=== PATIENT | female | born 1990 | race Caucasian/White ===

== ENCOUNTER 2022-08-31 20:11 | Outpatient (CLI) | payer OTHER, SELFPAY ==
[2022-08-31 20:47] VITALS: BP 116/79; PULSE 72; RESP 18; TEMP 36.5; O2SAT 98; BMI 24.2
[2022-08-31 21:09] LABS: Appearance Urine Clear (Clear); Bilirubin Urine Negative (Negative); Blood Urine Negative (Negative); Color Urine Yellow (Yellow); Glucose Urine Negative (Negative); Ketones Urine Negative (Negative); Leukocyte Esterase Urine Negative (Negative); Nitrite Urine Negative (Negative); Protein Urine Negative (Negative); Specific Gravity Urine 1.025 (1.000-1.030); Urobilinogen Urine 0.2 (0.2-1.0)
[2022-08-31 21:22] LABS: WBC Urine 0-2 (0-5)
[2022-08-31 21:23] LABS: Squamous Epithelial Cell Urine Few (None-Few)
--- OUTSIDE RECORDS SUMMARY | 2022-08-31 22:21 | XMS_ITS | Encounter Summary ---
:1990 Author Organization [employer] Address [address] [place] [address] Care Team Providers Name Role Phone No Primary/Referring, Phy Primary Care Provider Unavailable Reason for Visit Procedure/Equipment (Routine) - Incomplete Specialty Diagnoses / Procedures Referred By Contact Refer red To Contact Procedures Deja Perez, US Abd RUQ Organs PA-C [address] [place] [address] Referral ID Status Reason Start Date Expiration Date Visits V isits Requested Authorized [id number] Incomplete 05/08/2022 08/07/2023 1 1 Encounter Details Date Type Department Care Team Description 05/08/2022 Ancillary Procedure [facility] Ul tras[facility] [address] [place], [place] [id number] Social History Tobacco Use Types Packs/Day Years Used Date Smoking Tobacco: Every Day Cigarettes 0.5 Alcohol Use Standard Drinks/Week Comments Yes 0 (1 standard drink = 0.6 oz pure alcoho l) social Sex Assigned at Date Recorded Not on file documented as of this encounter Plan of Treatment Not on filedocumented as of this encounter Procedures Procedure Name Priority Date/Time Associated Diagnosis Comme nts US ABD RUQ ORGANS STAT 05/08/2022 10:01 PM Res ults for this CDT procedure are i n the results section. documented in this encounter Results US Abd RUQ Organs (05/08/2022 10:01 PM CDT) Anatomical Region Laterality Modality Abdomen Ultrasound Specimen (Source) Anatomical Collection Method Collection Time Re ceived Time Location / / Volume Laterality 05/08/2022 10:01 PM CDT Narrative 05/08/2022 10:06 PM CDT EXAM: US ABD RUQ ORGANS LOCATION: [facility] DATE/TIME: 05/08/2022 10:01 PM INDICATION: Ruq pain COMPARISON: None. TECHNIQUE: Limited abdominal ultrasound. FINDINGS: GALLBLADDER: Normal. No gallstones, wall thickening, or pericholecystic fluid. Negative sonographic Cruz's sign. BILE DUCTS: No biliary dilatation. The c ommon duct measures 6 mm. LIVER: Normal parenchyma with smooth con tour. No focal mass. The portal vein is patent with flow in the normal direction. RIGHT KIDNEY: No hydronephrosis. PANCREAS: The visualized portions are no rmal. No right upper quadrant ascites. IMPRESSION: 1. ??No sonographic evidence of cholelit hiasis or cholecystitis. Procedure Note Timi Giordano MD - 05/08/2022Forma tting of this note might be different from the original. EXAM: US ABD RUQ ORGANS LOCATION: [facility] DATE/TIME: 05/08/2022 10:01 PM INDICATION: Ruq pain COMPARISON: None. TECHNIQUE: Limited abdominal ultrasound. FINDINGS: GALLBLADDER: Normal. No gallstones, wall thickening, or pericholecystic fluid. Negative sonographic Cruz's sign. BILE DUCTS: No biliary dilatation. The c ommon duct measures 6 mm. LIVER: Normal parenchyma with smooth con tour. No focal mass. The portal vein is patent with flow in the normal direction. RIGHT KIDNEY: No hydronephrosis. PANCREAS: The visualized portions are no rmal. No right upper quadrant ascites. IMPRESSION: 1. No sonographic evidence of cholelithi asis or cholecystitis. Deja CABRERA US documented in this encounter Visit Diagnoses Not on filedocumented in this encounter Additional Health Concerns Infection Onset Date Last Indicated Resolved Time R/O COVID19 05/08/2022 05/08/2022 05/08/2022 9:31 PM CDT COVID19 05/08/2022 05/08/2022 05/19/2022 3:17 AM CDT documented as of this encounter Care Teams Drum Tender Relationship Specialty Start Date End Date No Primary/Referring, Phy PCP - General 08/01/12 documented as of this encounter
--- OUTSIDE RECORDS SUMMARY | 2022-08-31 22:21 | XMS_ITS | Encounter Summary ---
:1990 Author Organization [employer] [facility] Address [address] [place] [address] Care Team Providers Name Role Phone No Primary/Referring, Phy Primary Care Provider Unavailable Reason for Visit Procedure/Equipment (Routine) - Incomplete Specialty Diagnoses / Procedures Referred By Contact Refer red To Contact Procedures Deja Perez, XR Chest 2 Views PA-C [address] [place] [address] Referral ID Status Reason Start Date Expiration Date Visits V isits Requested Authorized [id number] Incomplete 05/08/2022 08/07/2023 1 1 Encounter Details Date Type Department Care Team Description 05/08/2022 Ancillary Procedure [facility] [address] [place] [address] Social History Tobacco Use Types Packs/Day Years [...] Name Priority Date/Time Associated Diagnosis Comme nts XR CHEST 2 VIEWS STAT 05/08/2022 9:44 PM Resul ts for this CDT procedure are i n the results section. documented in this encounter Results XR Chest 2 Views (05/08/2022 9:44 PM CDT) Anatomical Region Laterality Modality Chest, Lung Computed Radiography Specimen (Source) Anatomical Collection Method Collection Time Re ceived Time Location / / Volume Laterality 05/08/2022 9:44 PM CDT Narrative 05/08/2022 9:46 PM CDT EXAM: XR CHEST 2 VIEWS LOCATION: [facility] DATE/TIME: 05/08/2022 9:44 PM INDICATION: Fever COMPARISON: 01/25/2020 IMPRESSION: Negative chest. Procedure Note Alvin Pang MD - 05/08/2022Formmaciej g of this note might be different from the original. EXAM: XR CHEST 2 VIEWS LOCATION: [facility] DATE/TIME: 05/08/2022 9:44 PM INDICATION: Fever COMPARISON: 01/25/2020 IMPRESSION: Negative chest. Deja CABRERA GD documented in this encounter Visit Diagnoses Not on filedocumented in this encounter Additional Health Concerns Infection Onset Date Last Indicated Resolved Time COVID19 05/08/2022 05/08/2022 05/19/2022 3:17 AM CDT documented as of this encounter Care Teams Agriculture Instructor Relationship Specialty Start Date End Date No Primary/Referring, Phy PCP - General 08/01/12 documented as of this encounter
--- OUTSIDE RECORDS SUMMARY | 2022-08-31 22:21 | XMS_ITS | Encounter Summary ---
:1990 Author Organization [employer] Address [address] [place] [address] Care Team Providers Name Role Phone No Primary/Referring, Phy Primary Care Provider Unavailable Reason for Referral Procedure/Equipment (Routine) - Incomplete Specialty Diagnoses / Procedures Referred By Contact Refer red To Contact Procedures Deja Perez, XR Chest 2 Views PA-C [address] [place] [address] Referral ID Status Reason Start Date Expiration Date Visits V isits Requested Authorized [id number] Incomplete 05/08/2022 08/07/2023 1 1 Procedure/Equipment (Routine) - Incomplete Specialty Diagnoses / Procedures Referred By Contact Refer red To Contact Procedures Deja Perez, US Abd RUQ Organs PA-C [address] [place] [address] Referral ID Status Reason Start Date Expiration Date Visits V isits Requested Authorized [id number] Incomplete 05/08/2022 08/07/2023 1 1 Reason for Visit Reason Comments INFLUENZA LIKE ILLNESS Encounter Details Date Type Department Care Team Description 05/08/2022 Emergency [facility] ENRIQUE Perez-19 virus infection (Pr imary Dx); [facility] Upper abdominal pain; [place] [address] [address] [facility] Nausea and vomiting, unspecified vomitin g type; [phone] [place], [place] Lumbar pain; [address] Cigarette smoker; [phone] (Wo rk) History of endometriosis; History o f pyelonephritis Social History Tobacco Use Types Packs/Day Years Used Date Smoking Tobacco: Every Day Cigarettes 0.5 Alcohol Use Standard Drinks/Week Comments Yes 0 (1 standard drink = 0.6 oz pure alcoho l) social Sex Assigned at Date Recorded Not on file documented as of this encounter Last Filed Vital Signs Vital Sign Reading Time Taken Comments Blood Pressure 141/74 05/08/2022 6:38 PM CDT Pulse 88 05/08/2022 6:38 PM CDT Temperature 37.6 ??C (99.7 ??F) 05/08/2022 6:38 PM CDT Respiratory Rate 18 05/08/2022 6:38 PM CDT Oxygen Saturation 100% 05/08/2022 6:38 PM CDT Inhaled Oxygen Concentration - - Weight - - Height - - Body Mass Index - - documented in this encounter Discharge Instructions Discharge InstructionsDeja Perez PA-C - 05/08/2022 10:44 PM CDT Please follow CDC guidelines for isolation- People with COVID-19 should isolate for 5 days and if they are asymptomatic or their symptoms are resolving (without fever for 24 hours), follow that by 5 days of wearing a mask when around others to minimize the risk of infecting people they encounter. You can take ibuprofen or Tylenol as needed for pain, ibuprofen 600 mg every 6-8 hours or Tylenol 500-650 mg every 4-6 hours (not exceeding 4 grams in 24 hours). You can alternate the 2 of these medications to stay on top of the pain and reduce fever. You were given a prescription for an medication called Zofran to help with your nausea, take as directed. Follow-up with your PCP in a few days for re-evaluation. Return to emergency department with worsening abdominal pain, recurrent vomiting, persistent fever, chest pain, shortness of breath or any other concerns. documented in this encounter Medications at Time of Discharge Medication Sig Dispensed Refills Start Date End Date acetaminophen (TYLENOL) Take 2 Tablets (650 mg) 30 Tablet 0 05/08/2022 325 MG tablet by mouth every 4 hours as needed for Pain. Maximum acetaminophen dose of 4000 mg in 24 hours. ibuprofen (MOTRIN) 600 Take 1 Tablet (600 mg) 30 Tablet 0 0 05/08/2022 MG tablet by mouth every 6 hours as needed for Pain. levonorgestrel (AKA 1 Each by Intrauterine 0 MIRENA) 20 MCG/24HR IUD route once. ondansetron (AKA ZOFRAN) Take 1 Tab by mouth 10 Tab 0 4 MG tablet every 8 hours as needed for Nausea. ondansetron (ZOFRAN-ODT) Dissolve 1 Tablet (4 10 Tablet 0 0 05/08/2022 4 MG disintegrating mg) by mouth every 8 tablet hours as needed for Nausea. oxyCODONE-acetaminophen Take 1-2 Tabs by mouth 16 Tab 0 12/31/2014 (AKA PERCOCET) 5-325 MG every 4 hours as needed tablet for Pain. documented as of this encounter ED Notes Dunia Hernandez RN - 05/08/2022 10:51 PM CDT ED Nursing Discharge Note Arrival Information: Patient arrived: Ambulance Patient escorted by: EMS/Ambulance Discharge Information: Patient discharged: Home Patient accompanied by: Accompanied By: Self Transport mode: Mode: Walk Discharge instructions given and explained to patient: New discharge prescriptions explained to patient: Yes: Medications Prescribed this Visit Disp Refills Start End acetaminophen (TYLENOL) 325 MG tablet 30 Tablet 0 05/08/2022 Take 2 Tablets (650 mg) by mouth every 4 hours as needed for Pain. Oral ibuprofen (MOTRIN) 600 MG tablet 30 Tablet 0 05/08/2022 Take 1 Tablet (600 mg) by mouth every 6 hours as needed for Pain. Oral ondansetron (ZOFRAN-ODT) 4 MG disintegrating tablet 10 Tablet 0 05/08/2022 Take 1 Tablet (4 mg) by mouth every 8 hours as needed for Nausea. Oral LDA in place: Patient verbalized understanding of discharge plan and capable of completing discharge plan: Yes Does patient require hand-off or assistance with discharge plan: No Belongings, medication, weapons returned to patient: Yes Patient level of pain on discharge: Pain Rating (0-10): Rest: 10 Patient's condition related to chief complaint and treatment in the ED: improved Holds documented by nursing during this visit - reviewed chart for most current hold status: No No orders of the defined types were placed in this encounter. ---End of Report--- Deja Perez PA-C - 05/08/2022 8:35 PM CDT Emergency Medicine Visit Note Chief Complaint: INFLUENZA LIKE ILLNESS HPI The patient is a 31-year-old female with history of endometriosis, UTI/pyelonephritis who presents to the emergency department for evaluation of abdominal pain, nausea and fever. The patient states shewoke up this morning with a dry, irritated throat. She then developed a fever of 103.2. Patient took Tylenol, however vomited immediately afterwards. She developed epigastric/RUQ pain which has been constant since. Since waiting in the lobby she has developed low back pain that feels typical of prior kidney infections. The patient has been urinating more frequently, however she denies any dysuria, urinary urgency or hematuria. She has had a slight cough. Denies any current sore throat or rhinorrhea.No shortness of breath or chest pain. Patient took a COVID test at home which was negative. The patient has had multiple surgeries including a hysterectomy, laparoscopies for endometriosis. No history of kidney stones. Still has gallbladder. She was given Zofran by medics with improvement in her nausea. In addition to the above, I have personally reviewed any medications, allergies, problem list, medical history, surgical history and social history in the health record as of this visit. Review of Systems A complete review of systems was performed and is otherwise negative. Triage Vitals [05/08/22 1838] Temp 99.7 ??F (37.6 ??C) Temp src Oral Pulse 88 Resp 18 BP (!) 141/74 SpO2 100 % Physical Exam General: Alert, appears uncomfortable HEENT: Head NC/AT, posterior oropharynx is unremarkable, no tonsillar hypertrophy or exudates. Uvulamidline and nonedematous. No [employer]. No drooling, muffled voice or trismus. Neck is supple. Lungs: CTA bilaterally, no wheezing. No respiratory distress. Heart: RRR, distal pulses present Abd: soft, TTP to the RUQ and epigastric region. No lower abdominal tenderness. No CVA tenderness. Tenderness to the paraspinal musculature in the lumbar region bilaterally Neuro: Alert and appropriate Musculoskeltal: No swelling, ecchymosis or deformity present. Skin: warm, dry and without acute rash Deja Perez PA-C [facility] The patient is a 31-year-old female with history of endometriosis, UTI/pyelonephritis who presents to the emergency department for evaluation of fever, upper abdominal pain, nausea, cough. Nursing notes, EMR and vitals reviewed. Temp 99.7?? after Tylenol (reported fever at home), otherwise unremarkable. Physical exam as noted above. Differential diagnosis includes, but is not limited to biliary colic, acute cholecystitis, pancreatitis, appendicitis, UTI/pyelonephritis, renal colic, pneumonia, COVID,etc. The patient endorses urinary frequency, however no other urinary symptoms and urinalysis does not appear consistent with infection. Lipase normal making acute pancreatitis unlikely. LFTs within normal limits, less just above distal obstructive pathology. CBC within normal limits, no evidence of leukocytosis. Normal renal function. Will plan for RUQ ultrasound as well as chest x-ray. Swab for COVID/influenza and RSV ordered and positive for COVID. CXR negative, no infiltrate concerning for pneumonia, additionally lungs clear on exam. RUQ ultrasound negative. No evidence of cholelithiasis or acute cholecystitis. No evidence of hydronephrosis. Results shared with the patient. Repeat abdominal exam notable for mild epigastric pain, no RLQ concerning for appendicitis at this time. Discussed symptomatic management with the patient and she was encouraged to follow up in clinic for reevaluation. Strict return precautions were given and she was discharged in stable condition. Clinical Impressions as of 05/08/222248 COVID-19 virus infection Upper abdominal pain Nausea and vomiting, unspecified vomiting type Margie Cuadra RN - 05/08/2022 8:07 PM CDT Patient reports pain now spreading into her back. She states this feels similar to when she had a kidney infection in the past. No hx kidney stones. documented in this encounter Plan of Treatment Not on filedocumented as of this encounter Procedures Procedure Name Priority Date/Time Associated Comments Diagnosis US ABD RUQ ORGANS STAT 05/08/2022 10:01 Result s for this PM CDT procedure are i n the results section. XR CHEST 2 VIEWS STAT 05/08/2022 9:44 PM Resul ts for this CDT procedure are i n the results section. RSV, MOLECULAR STAT 05/08/2022 8:41 PM Results for this DETECTION CDT procedure are i n the results section. INFLUENZA VIRUS A STAT 05/08/2022 8:41 PM Resu lts for this AND B, MOLECULAR CDT procedure a re in DETECTION the results section. 2019 NOVEL STAT 05/08/2022 8:41 PM Results f or this CORONAVIRUS CDT procedure are i n the results section. COVID/INFLUENZA STAT 05/08/2022 8:41 PM Result s for this A&B/RSV CDT procedure are i n the results section. UA CONDITIONAL UC STAT 05/08/2022 7:26 PM Resu lts for this CDT procedure are i n the results section. TEST STAT Add-On 05/08/2022 7:26 PM Results for this (URINE) CDT procedure are i n the results section. LIVER PANEL(HEPATIC STAT Add-On 05/08/2022 6:54 PM Re sults for this FUNCTION PANEL) CDT procedure ar e in the results section. BASIC METABOLIC STAT 05/08/2022 6:54 PM Result s for this PANEL CDT procedure are i n the results section. COMPLETE BLOOD STAT 05/08/2022 6:54 PM Results for this COUNT-NO DIFF CDT procedure are in the results section. LIPASE STAT Add-On 05/08/2022 6:54 PM Results f or this CDT procedure are i n the [...] original. EXAM: US ABD RUQ ORGANS LOCATION: [facility] DATE/TIME: 05/08/2022 10:01 PM INDICATION: Ruq [...] evidence of cholelithi asis or cholecystitis. Deja Perez PA-C RAD US XR Chest 2 Views (05/08/2022 9:44 PM [...] chest. Procedure Note Alvin Pang MD - 05/08/2022Formattsushma g of this note might be different from the original. EXAM: XR CHEST 2 VIEWS LOCATION: [facility] DATE/TIME: 05/08/2022 9:44 PM INDICATION: Fever COMPARISON: 01/25/2020 IMPRESSION: Negative chest. Deja Perez PA-C RAD GD RSV RNA, Molecular Detection (05/08/2022 8:41 PM CDT) [facility] Method Time Signature RSV by PCR Not Detected Not Detected 05/08/2022 [facility] 9:30 PM CDT HOSPITAL Specimen Anatomical Collection Method Collection Time Receive d Time (Source) Location / / Volume Laterality Swab (Source Non-blood 05/08/2022 8:41 PM 2 8:48 Required) Collection / CDT PM CDT (Nasopharyngeal Unknown swab) [facility] - 05/08/2022 9:30 PM CD T Method: Qualitative real-time PCR assay to detect RSV Viral RNA. Deja Perez PA-C LAB_1 Performing Organization Address [facility] Phon e Number [address] [address] Influenza A and B by PCR (05/08/2022 8:41 PM CDT) [facility] Method Time Signature INFLUENZA A Not Detected Not Detected 05/08/2022 [facility] 9:30 PM CDT [facility] INFLUENZA B Not Detected Not Detected 05/08/2022 [facility] 9:30 PM CDT HOSPITAL Specimen Anatomical Collection Method Collection Time Receive d Time (Source) Location / / Volume Laterality Swab (Source Non-blood 05/08/2022 8:41 PM 2 8:48 Required) Collection / CDT PM CDT (Nasopharyngeal Unknown swab) [facility] - 05/08/2022 9:30 PM CD T Methodology: ??Qualitative real-time PCR assay to detect the Influenza type A and type B viral RNA Deja Perez PA-C LAB_1 Performing Organization Address [facility] Phon e Number [address] [address] (ABNORMAL) 2019 Novel Coronavirus (COVID-19) (05/08/2022 8:41 PM CDT) Component Value Ref Range Test Analysis Performed Pathologis t Method Time At [facility] COVID-19 Detected (A) Not 05/08/2022 [facility] Interpretation Detected 9:31 PM HOSPITAL CDT Source Nasopharyngeal 05/08/2022 [facility] swab 9:31 PM HOSPITAL CDT Specimen Anatomical Collection Method Collection Time Receive d Time (Source) Location / / Volume Laterality Swab (Source Non-blood 05/08/2022 8:41 PM 8:48 Required) Collection / CDT PM CDT (Nasopharyngeal Unknown swab) [facility] 05/08/2022 9:31 PM CD T Test performed by real-time PCR. This test has been authorized by the FDA under an Emergency Use Authorization (EUA) for use by authorized laboratories. Deja Perez PA-C LAB_1 Performing Organization Address [facility]/ZIP [facility] Phon e Number [address] [address] Test (Urine) (05/08/2022 7:26 PM CDT) athologist [facility] HCG, Urine Negative Negative 05/08/2022 [facility] 10:59 PM CDT HOSPITAL Specimen Anatomical Collection Method Collection Time Receive d Time (Source) Location / / Volume Laterality Urine URINE SPECIMEN Non-blood 05/08/2022 7:26 PM 022 7:29 COLLECTION, CLEAN Collection / CDT PM CDT CATCH / Unknown Unknown Deja Perez PA-C LAB_1 Performing Organization Address City/[facility] Phon e Number [address] [address] (ABNORMAL) UA Conditional UC: Clean Catch (05/08/2022 7:26 PM CDT) [facility] gist Method Time [facility] Urine Culture Urinalysis 05/08/2022 [facility] Comment results do not 7:42 PM CDT HOSPITAL meet criteria for urine culture reflex. Urine Color Yellow Straw-Yello 05/08/2022 [facility] w 7:42 PM CDT HOSPITAL Urine Clarity Clear Clear 05/08/2022 [facility] 7:42 PM CDT HOSPITAL Specific 1.012 1.005 - 05/08/2022 [facility] [place], Urine 1.030 7:42 PM CDT HOSPITAL PH Urine 7.0 5.0 - 8.0 05/08/2022 [facility] 7:42 PM CDT HOSPITAL Protein, Urine Negative Negative 05/08/2022 [facility] Qual (mg/dL) 7:42 PM CDT HOSPITAL Glucose Urine Negative Negative 05/08/2022 [facility] Qual (mg/dL) 7:42 PM CDT HOSPITAL Ketones, Urine 80 (A) Negative 05/08/2022 [facility] (mg/dL) 7:42 PM CDT HOSPITAL Urobilinogen, <2.0 <2.0 05/08/2022 [facility] Urine (EU/dL) 7:42 PM CDT HOSPITAL Bilirubin Negative Negative 05/08/2022 [facility] Urine 7:42 PM CDT HOSPITAL Blood, Urine Negative Neg/Trace 05/08/2022 [facility] 7:42 PM CDT HOSPITAL Nitrite Urine Negative Negative 05/08/2022 [facility] 7:42 PM CDT HOSPITAL Leukocyte Est. Negative Negative 05/08/2022 [facility] 7:42 PM CDT HOSPITAL Red Blood 1 0 - 3 /HPF 05/08/2022 [facility] Cells 7:42 PM CDT HOSPITAL White Blood <1 0 - 5 /HPF 05/08/2022 [facility] Cells 7:42 PM CDT HOSPITAL Squamous Occasional None Seen, 05/08/2022 [facility] Epithelial Occasional, 7:42 PM CDT HOSPITAL Cells Few /HPF Mucus Present (A) None Seen 05/08/2022 [facility] /HPF 7:42 PM CDT HOSPITAL Urine Source Clean Catch 05/08/2022 [facility] 7:42 PM CDT HOSPITAL Specimen Anatomical Collection Method Collection Time Receive d Time (Source) Location / / Volume Laterality Urine URINE SPECIMEN Non-blood 05/08/2022 7:26 PM 022 7:29 COLLECTION, CLEAN Collection / CDT PM CDT CATCH / Unknown Unknown Tacos Hall MD LAB_1 Performing Organization Address City/State/ZIP Code Phon e Number [address] [address] Lipase (05/08/2022 6:54 PM CDT) athologist Signature Lipase 8 8 - 78 U/L 05/08/2022 [facility] 9:08 PM CDT [facility] Specimen Anatomical Collection Method / Collection Time Recei cooper Time (Source) Location / Volume Laterality Blood Venipuncture / 05/08/2022 6:54 05/08/2022 6:57 Unknown PM CDT PM CDT Deja Perez PA-C LAB_1 Performing Organization Address [facility] e [address] [address] (ABNORMAL) Liver Panel (Hepatic Function Panel) (05/08/2022 6:54 PM CDT) athologist Signature Alkaline 44 40 - 150 05/08/2022 [facility] Phosphatase U/L 9:08 PM CDT HOSPITAL Bilirubin, Total 0.5 0.2 - 1.2 05/08/2022 [facility] mg/dL 9:08 PM CDT HOSPITAL Bilirubin, 0.2 0.0 - 0.5 05/08/2022 [facility] Direct mg/dL 9:08 PM CDT HOSPITAL AST (SGOT) 31 10 - 40 05/08/2022 [facility] U/L 9:08 PM T HOSPITAL Comment: Specimen moderately hemolyzed. Hemolysis may affect result. ALT (SGPT) 29 0 - 55 U/L 05/08/2022 9:08 PM CDT [facility] Protein, Total 9.3 (H) 6.4 - 8.3 g/dL 05/08/2022 9:08 PM [facility] Comment: Specimen moderately hemolyzed. Hemolysis may affect result. Albumin 4.3 3.5 - 5.0 g/dL 05/08/2022 9:08 PM CDT [facility] Specimen Anatomical Collection Method / Collection Time Recei cooper Time (Source) Location / Volume Laterality Blood Venipuncture / 05/08/2022 6:54 05/08/2022 6:57 Unknown PM CDT PM CDT Deja Perez PA-C LAB_1 Performing Organization Address [facility] e Number [address] [address] (ABNORMAL) Basic Metabolic Panel (05/08/2022 6:54 PM CDT) athologist Signature Sodium 134 (L) 136 - 145 05/08/2022 [facility] mmol/L 7:27 PM T [facility] Potassium 4.6 3.5 - 5.1 05/08/2022 [facility] mmol/L 7:27 PM [facility] Comment: Specimen moderately hemolyzed. Hemolysis may affect result. Chloride 105 98 - 109 mmol/L 05/08/2022 7:27 PM T [facility] CO2 17 (L) 20 - 29 mmol/L 05/08/2022 7:27 PM [facility] Anion Gap 12 7 - 16 mmol/L 05/08/2022 7:27 PM [facility] Calcium 9.5 8.4 - 10.4 mg/dL 05/08/2022 7:27 PM [facility] BUN 10 7 - 26 mg/dL 05/08/2022 7:27 PM [facility] Creatinine 0.70 0.55 - 1.02 mg/dL 05/08/2022 7:27 PM [facility] GFR, Estimated >60 >60 mL/min/1.73m2 05/08/2022 7:27 P M [facility] Glucose 83 70 - 100 mg/dL 05/08/2022 7:27 PM [facility] Comment: The given reference range is fo r the fasting state. Non-fasting reference range for glucose is 70 - 180 mg/dL. Specimen Anatomical Collection Method / Collection Time Recei cooper Time (Source) Location / Volume Laterality Blood Venipuncture / 05/08/2022 6:54 05/08/2022 6:57 Unknown PM CDT PM CDT Tacos Hall MD LAB_1 Performing Organization Address City/State/[place] [address] Complete Blood Count-No Diff (05/08/2022 6:54 PM CDT) athologist Signature WBC 5.4 3.5 - 10.5 05/08/2022 [facility] x10(9)/L 7:01 PM T [facility] RBC 4.52 3.90 - 05/08/2022 [facility] 5.03 7:01 PM T HOSPITAL x10(12)/L Hemoglobin 13.9 12.0 - 05/08/2022 [facility] 15.5 g/dL 7:01 PM [facility] HCT 41.2 34.9 - 05/08/2022 [facility] 44.5 % 7:01 PM T HOSPITAL MCV 91.2 80.0 - 05/08/2022 [facility] 100.0 fL 7:01 PM T [facility] MCH 30.8 27.6 - 05/08/2022 [facility] 33.3 pg 7:01 PM T [facility] MCHC 33.7 31.5 - 05/08/2022 [facility] 35.2 g/dL 7:01 PM T [facility] RDW 12.9 11.9 - 05/08/2022 [facility] 15.5 % 7:01 PM T [facility] Platelets 185 150 - 450 05/08/2022 [facility] x10(9)/L 7:01 PM T [facility] Automated NRBC 0 <=0 /100 05/08/2022 [facility] WBC 7:01 PM T [facility] Specimen Anatomical Collection Method / Collection Time Recei cooper Time (Source) Location / Volume Laterality Blood Venipuncture / 05/08/2022 6:54 05/08/2022 6:57 Unknown PM CDT PM CDT Tacos Hall MD LAB_1 Performing Organization Address City/State/ZIP Code Phon e Number [address] [address] documented in this encounter Visit Diagnoses Diagnosis COVID-19 virus infection - Primary Upper abdominal pain Abdominal pain, other specified site Nausea and vomiting, unspecified vomitin g type Lumbar pain Lumbago Cigarette smoker ([facility]) Tobacco use disorder History of endometriosis Personal history of other genital system and obstetric disorders History of pyelonephritis Personal history of urinary (tract) infe ction Triage Assessment Note - Samantha Meneses RN - 05/08/2022 6:38 PM CDT Chief complaint: Abdominal pain Symptoms/background/relevant history (narrative): C/o sudden onset of green emesis this am, followedby upper quadrant abdominal pain. Normal bowel movements. Denies CP/SOB. Reports fever at home this morning. Unable to sit still in triage, appears uncomfortable. Otherwise vitally stable What is most important to you about your ER visit today? Eval Triage Assessment Note - July Abdi RN - 05/08/2022 6:09 PM CDT Arrival via [facility]. 3 days of fever, nausea vomiting, and other 'flu like symptoms' Vitals WNL for EMS. EMS reports patient breathing WNL and not in distress for them. documented in this encounter Administered Medications Inactive Administered Medications - up to 3 most recent administrations Medication Order MAR Action Action Date Dose Rate Site HYDROmorphone (DILAUDID) injection Given 05/08/2022 8:43 PM CDT 0.5 mg 0.5 mg 0.5 mg, Intravenous, ONCE, On 05/08/22 at 2100, For 1 dose HYDROmorphone (DILAUDID) injection 0.5 m g Given 05/08/2022 10:11 PM CDT 0.5 mg 0.5 mg, Intravenous, ONCE, On 05/08/22 at 2145, For 1 dose documented in this encounter Active and Recently Administered Medications Times are shown in CDT. Scheduled Medication Order 05/06/2022 05/07/2022 05/08/2022 HYDROmorphone (DILAUDID) injection 0.5 mg (COMPLETED) 2042 (Given - Provider: Dunia Hernandez RN) 0.5 mg, Intravenous, ONCE, On 05/08/22 at 2100, For 1 dose HYDROmorphone (DILAUDID) injection 0.5 mg (COMPLETED) 2210 (Given - Provider: Dunia Hernandez RN) 0.5 mg, Intravenous, ONCE, On 05/08/22 at 2145, For 1 dose documented in this encounter Additional Health Concerns Infection Onset Date Last Indicated Resolved Time R/O COVID19 05/08/2022 05/08/2022 05/08/2022 9:31 PM CDT COVID19 05/08/2022 05/08/2022 05/19/2022 3:17 AM CDT documented as of this encounter Care Teams Information Analyst Relationship Specialty Start Date End Date No Primary/Referring, Phy PCP - General 08/01/12 documented as of this encounter
--- OUTSIDE RECORDS SUMMARY | 2022-08-31 22:21 | XMS_ITS | Encounter Summary ---
:1990 Author Organization [facility] Address [address] [place] [address] Care Team Providers Name Role Phone No Primary/Referring, Phy Primary Care Provider Unavailable Encounter Details Date Type Department Care Team Description 11/13/2018 Hospital Encounter [facility] Barone, [facility] [place], [place] [id number] [address] [facility] [phone] [place], [place] [address] (Wo rk) Social History Tobacco Use Types Packs/Day Years Used Date Smoking Tobacco: Every Day Cigarettes 0.5 Alcohol Use Standard Drinks/Week Comments Yes 0 (1 standard drink = 0.6 oz pure alcoho l) social Sex Assigned at Date Recorded Not on file documented as of this encounter Medications at Time of Discharge Medication Sig Dispensed Refills Start Date End Date levonorgestrel (AKA 1 Each by 0 MIRENA) 20 MCG/24HR IUD Intrauterine route once. ondansetron (AKA ZOFRAN) Take 1 Tab by mouth 10 Tab 0 4 MG tablet every 8 hours as needed for Nausea. oxyCODONE-acetaminophen Take 1-2 Tabs by 16 Tab 0 2014 (AKA PERCOCET) 5-325 MG mouth every 4 hours tablet as needed for Pain. ibuprofen (AKA MOTRIN) Take 600 mg by mouth 0 05/08/2022 600 MG tablet every 6 hours as needed for Pain. ondansetron (AKA ZOFRAN) Take 1 Tab by mouth 10 Tab 0 05/08/2022 4 MG disintegrating every 8 hours as tablet needed for Nausea. documented as of this encounter Plan of Treatment Not on filedocumented as of this encounter Visit Diagnoses Not on filedocumented in this encounter Care Teams Bobbin Dumper Relationship Specialty Start Date End Date No Primary/Referring, Phy PCP - General 08/01/12 documented as of this encounter
--- OUTSIDE RECORDS SUMMARY | 2022-08-31 22:21 | XMS_ITS | Encounter Summary ---
:1990 Author Organization [facility] Address [address] [place] [address] Care Team Providers Name Role Phone No Primary/Referring, Phy Primary Care Provider Unavailable Encounter Details Date Type Department Care Team Description 04/30/2021 Orders Only Initial Department [facility] KYLIE BECKFORD MD [place], [place] [address] Interface provider [phone] [place] [address] Social History Tobacco Use Types Packs/Day Years [...] Name Priority Date/Time Associated Diagnosis Comme nts ULTRASOUND [place] 04/30/2021 Results for th is procedure are in the resu lts section. documented in this encounter Results ULTRASOUND SC (04/30/2021) Anatomical Region Laterality Modality Other Narrative This result has an attachment that is no t available. 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
--- OUTSIDE RECORDS SUMMARY | 2022-08-31 22:21 | XMS_ITS | Clinical Summary ---
:1990 Author Organization [facility] Address [address] [place] [address] Care Team Providers Name Role Phone No Primary/Referring, Phy Primary Care Provider Unavailable Source Comments You are receiving this document as you are listed as the primary care provider,follow-up provider, or the patient has been referred to you for consultation.This is in compliance with the Medicare and Medicaid EHR Incentive Program,which states Providers who transition their patient to another setting of careor provider of care or refers their patient to another provider of care shouldprovide summarycare record for each transition of care or referral. [employer] Allergies Active Allergy Reactions Severity Noted Date Comments Food Anaphylaxis 04/25/2011 strawberries Morphine Sulfate Other, see comments 06/01/2013 vomi ting Medications Medication Sig Dispensed Refills Start Date End Date Status levonorgestrel (AKA 1 Each by 0 Active MIRENA) 20 MCG/24HR Intrauterine route IUD once. oxyCODONE-acetaminoph Take 1-2 Tabs by 16 Tab 0 12/31/2014 Active en (AKA PERCOCET) mouth every 4 hours 5-325 MG tablet as needed for Pain. ondansetron (AKA Take 1 Tab by mouth 10 Tab 0 12/31/2014 Active ZOFRAN) 4 MG tablet every 8 hours as needed for Nausea. acetaminophen Take 2 Tablets (650 30 Tablet 0 05/08/2022 Active (TYLENOL) 325 MG mg) by mouth every tablet 4 hours as needed for Pain. Maximum acetaminophen dose of 4000 mg in 24 hours. ibuprofen (MOTRIN) Take 1 Tablet (600 30 Tablet 0 05/08/2022 Active 600 MG tablet mg) by mouth every 6 hours as needed for Pain. ondansetron Dissolve 1 Tablet 10 Tablet 0 05/08/2022 Active (ZOFRAN-ODT) 4 MG (4 mg) by mouth disintegrating tablet every 8 hours as needed for Nausea. Social History Tobacco Use Types Packs/Day Years Used Date Smoking Tobacco: Every Day Cigarettes 0.5 Alcohol Use Standard Drinks/Week Comments Yes 0 (1 standard drink = 0.6 oz pure alcoho l) social Sex Assigned at Date Recorded Not on file Last Filed Vital Signs Vital Sign Reading Time Taken Comments Blood Pressure 141/74 05/08/2022 6:38 PM CDT Pulse 88 05/08/2022 6:38 PM CDT Temperature 37.6 ??C (99.7 ??F) 05/08/2022 6:38 PM CDT Respiratory Rate 18 05/08/2022 6:38 PM CDT Oxygen Saturation 100% 05/08/2022 6:38 PM CDT Inhaled Oxygen Concentration - - Weight 70.8 kg (156 lb) 05/08/2009 7:54 AM CDT Height 165.1 cm (5' 5) 05/08/2009 7:54 AM CDT Body Mass Index 25.96 05/08/2009 7:54 AM CDT Plan of Treatment Health Maintenance Due Date Last Done Comments Cervical Cancer Screening Due 1990 Hep C Screening (Preventive 1988 Services) HepB (1) 1990 COVID-19 Vaccine (#1) 01/19/1989 Pneumococcal (1 - PCV) 1994 HIV Screening (Preventive 2004 Services) Adult Preventive Visit 2006 Influenza (#1) 2022 08/27/2016, 10/02/2003 DTaP/Tdap/Td (3 - Tdap) 10/25/2026 10/25/2016, 01/24/2001 Zoster/Shingles (1 of 2) 2038 HPV Vaccine Aged Out No longer eligib le based on patient's age to complete this to [facility] HepA Aged Out No longer eligib le based on patient's age to complete this to [facility] Hib Aged Out No longer eligib le based on patient's age to complete this to [facility] IPV (Polio) Aged Out No longer eligib le based on patient's age to complete this to [facility] MCV4 Aged Out No longer eligib le based on patient's age to complete this to [facility] Insurance Payer Benefit Plan / Subscriber ID Effective Dates Phone Addre ss Type Group REYMUNDO HERNANDEZ [place] [id number] 2021-Present [address] Medicaid [place] [employer] [place] [id number] Keyla Porter Personal/Family Self [address] [id number] Keyla Porter Personal/Family Self [address] (Home) [place] [address] Keyla Porter Confidential Self [id number] (Home) [place] [id number] Care Teams 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
--- OUTSIDE RECORDS SUMMARY | 2022-08-31 22:22 | XMS_ITS | Encounter Summary ---
:1990 Author Organization [facility] Address [address] [place] [address] Care Team Providers Name Role Phone No Primary/Referring, Phy Primary Care Provider Unavailable Reason for Referral Procedure/Equipment (Routine) - Incomplete Specialty Diagnoses / Procedures Referred By Contact Refer red To Contact Procedures Taocs Hall MD CT ANGIOGRAPHY HEAD (includes [address] head w/o contrast) [place] [address] Referral ID Status Reason Start Date Expiration Date Visits V isits Requested Authorized [id number] Incomplete 08/24/2015 1 1 Reason for Visit Reason Comments HEADACHE--ED Encounter Details Date Type Department Care Team Description 08/24/2015 - Emergency [facility] Tacos Hall Headache, unspecified 08/25/2015 [address] Dougherty MD headache [place] [address] [address] (Primary Dx) [phone] [place], [place] [id number] Social History Tobacco Use Types Packs/Day Years Used Date Smoking Tobacco: Every Day Cigarettes 0.5 Alcohol Use Standard Drinks/Week Comments Yes 0 (1 standard drink = 0.6 oz pure alcoho l) social Sex Assigned at Date Recorded Not on file documented as of this encounter Last Filed Vital Signs Vital Sign Reading Time Taken Comments Blood Pressure 107/61 08/25/2015 4:10 AM CDT Pulse 60 08/25/2015 4:10 AM CDT Temperature 36.9 ??C (98.5 ??F) 08/25/2015 2:10 AM CDT Respiratory Rate 16 08/25/2015 4:10 AM CDT Oxygen Saturation 96% 08/25/2015 4:10 AM CDT Inhaled Oxygen Concentration - - Weight - - Height - - Body Mass Index - - documented in this encounter Discharge Instructions Discharge InstructionsTesfaye Smith MD - 08/25/2015 4:50 AM CDT Images from the original note were not included. Please follow up with your primary care provider in 1-3 days. Please return to the emergency room if your symptoms worsen. Headache: After Your Visit Your Care Instructions Headaches have many possible causes. Most headaches aren't a sign of a more serious problem, and they will get better on their own. Home treatment may help you feel better faster. The doctor has checked you carefully, but problems can develop later. If you notice any problems or new symptoms, get medical treatment right away. Follow-up care is a conner part of your treatment and safety. Be sure to make and go to all appointments, and call your doctor if you are having problems. It's also a good idea to know your test results and keep a list of the medicines you take. How can you care for yourself at home? ?? Do not drive if you have taken a prescription pain medicine. ?? Rest in a quiet, dark room until your headache is gone. Close your eyes and try to relax or go tosleep. Don't watch TV or read. ?? Put a cold, moist cloth or cold pack on the painful area for 10 to 20 minutes at a time. Put a thin cloth between the cold pack and your skin. ?? Use a warm, moist towel or a heating pad set on low to relax tight shoulder and neck muscles. ?? Have someone gently massage your neck and shoulders. ?? Take pain medicines exactly as directed. ?? If the doctor gave you a prescription medicine for pain, take it as prescribed. ?? If you are not taking a prescription pain medicine, ask your doctor if you can take an mumz-qea-pzgjqho medicine. ?? Be careful not to take pain medicine more often than the instructions allow, because you may get worse or more frequent headaches when the medicine wears off. ?? Do not ignore new symptoms that occur with a headache, such as a fever, weakness or numbness, vision changes, or confusion. These may be signs of a more serious problem. To prevent headaches ?? Keep a headache diary so you can figure out what triggers your headaches. Avoiding triggers may help you prevent headaches. Record when each headache began, how long it lasted, and what the pain waslike (throbbing, aching, stabbing, or dull). Write down any other symptoms you had with the headache, such as nausea, flashing lights or dark spots, or sensitivity to bright light or loud noise. Note if the headache occurred near your period. List anything that might have triggered the headache, such as certain foods (chocolate, cheese, wine) or odors, smoke, bright light, stress, or lack of sleep. ?? Find healthy ways to deal with stress. Headaches are most common during or right after stressful times. Take time to relax before and after you do something that has caused a headache in the past. ?? Try to keep your muscles relaxed by keeping good posture. Check your jaw, face, neck, and shoulder muscles for tension, and try relaxing them. When sitting at a desk, change positions often, and stretch for 30 seconds each hour. ?? Get plenty of sleep and exercise. ?? Eat regularly and well. Long periods without food can trigger a headache. ?? Treat yourself to a massage. Some people find that regular massages are very helpful in relievingtension. ?? Limit caffeine by not drinking too much coffee, tea, or soda. But don't quit caffeine suddenly, because that can also give you headaches. ?? Reduce eyestrain from computers by blinking frequently and looking away from the computer screen every so often. Make sure you have proper eyewear and that your monitor is set up properly, about an arm's length away. ?? Seek help if you have depression or anxiety. Your headaches may be linked to these conditions. Treatment can both prevent headaches and help with symptoms of anxiety or depression. When should you call for help? Call 911 anytime you think you may need emergency care. For example, call if: ?? You have signs of a stroke. These may include: ?? Sudden numbness, paralysis, or weakness in your face, arm, or leg, especially on only one side ofyour body. ?? Sudden vision changes. ?? Sudden trouble speaking. ?? Sudden confusion or trouble understanding simple statements. ?? Sudden problems with walking or balance. ?? A sudden, severe headache that is different from past headaches. Call your doctor now or seek immediate medical care if: ?? You have a new or worse headache. ?? Your headache gets much worse. Where can you learn more? Go to [facility] and enter M271 in the search box. Current as of: January 30, 2014 Content Version: 10.4 ?? [id number] Quemulus. documented in this encounter Medications at Time [...] for Nausea. documented as of this encounter Progress Notes Kerri Holder PA-C - 08/27/2015 8:27 AM CDT Quick Note: NGTD CSF. Final pending. Aung Amos PA-C - 08/25/2015 3:48 PM CDT Quick Note: CSF HSV: not detected documented in this encounter Procedure Notes Tesfaye Smith MD - 08/25/2015 10:15 AM CDTAssociated Order(s): LUMBAR PUNCTURE Lumbar Puncture Date/Time: 08/25/2015 10:15 AM Performed by: TESFAYE SMITH Authorized by: JAIDEN SAAVEDRA Consent: Verbal consent obtained. Risks and benefits: risks, benefits and alternatives were discussed Consent given by: patient Patient identity confirmed: verbally with patient Indications: evaluation of Idiopathic intracranial hypertension. Anesthesia: local infiltration Local anesthetic: lidocaine 1% without epinephrine Anesthetic total: 12 ml Patient sedated: yes Sedation type: anxiolysis Sedatives: lorazepam Preparation: Patient was prepped and draped in the usual sterile fashion. Lumbar space: L4-L5 interspace Patient's position: left lateral decubitus Needle gauge: 20 Needle type: spinal needle - Quincke tip Number of attempts: 3 Opening pressure: 12 cm H2O Fluid appearance: clear Tubes of fluid: 4 Total volume: 4 ml Post-procedure: site cleaned and adhesive bandage applied Patient tolerance: Patient tolerated the procedure well with no immediate complications documented in this encounter ED Notes Jaiden Saavedra MD - 09/08/2015 11:58 AM CDT Patient signed out to me by Wellington Hall for initial history, physical, and emergency department course please see his dictation. I supervised LP Kamaljit Sexton RN - 08/25/2015 5:25 AM CDT Verbal & written discharge instructions given to Keyla Porter for headaches. Rx none. Home w/ sig other, alert, ambulatory. To f/u with PMD 1-3 days. Taken to exit in for comfort. Kamaljit Sexton RN - 08/25/2015 12:40 AM CDT States ZELAYA now up to 7.5/10. MD aware. Kamaljit Sexton RN - 08/25/2015 12:30 AM CDT ZELAYA starting to get worse, especially behind eyes, is 6/10. Kamaljit Sexton RN - 08/24/2015 11:45 PM CDT Back from CT, ZELAYA still 06/30 after reglan, benadryl. Given zofran & dilaudid IV. Dinora Cherry RN - 08/24/2015 11:20 PM CDT Report to Kamaljit Tacos Hall MD - 08/24/2015 11:20 PM CDT [facility] Emergency Department Attending Supervision Note I performed the conner elements of history and exam, and agree with resident's findings and plan of care as discussed with Jaiden Henderson. I have reviewed and agreed with the PMH, FH, SOC, ROS. Please see today's note by resident physician. Assessment: Headache -abrupt onset Plan: CT/CTA for SAH Symptomatic treatment Dispo pending Author: Tacos Hall MD Patient Vitals for the past 24 hrs: BP Temp Temp src Pulse Resp SpO2 08/24/15 2224 125/78 mmHg - - 84 16 100 % 08/24/15 2130 107/73 mmHg 98 ??F (36.7 ??C) Oral 94 20 99 % Tesfaye Smith MD - 08/24/2015 11:10 PM CDT ED Patient Handoff Acceptance Note Patient was signed out to me by the outgoing team. The patient is awaiting CTA head results. Patient Vitals for the past 8 hrs: BP Temp Temp src Pulse Resp SpO2 08/24/15 2224 125/78 mmHg - - 84 16 100 % 08/24/15 2130 107/73 mmHg 98 ??F (36.7 ??C) Oral 94 20 99 % ED course under my care: I did see the patient. CTA head reviewed and shows no evidence of intracranial hemorrhage or aneurysm. Upon re-evaluation of the patient, she continued to have 9/10 pain. She now states that she has had blurred vision in R eye. Patient also states she had a similar headache 1-2 weeks ago with blurred vision in R eye. This is concerning for possible idiopathic intracranial hypertension. Patient given additional benadryl andcompazine. Risks, benefits, and alternatives of lumbar puncture for the diagnosis of IIH were discussed. Patient verbally agrees for lumbar puncture, which was performed. See separate procedure note for details. She tolerated the procedure well. Opening pressure was normal at 12 cc H2O, which makes IIH very unlikely. No evidence of SAH or infection on CSF fluid analysis. Upon further reevaluation of the patient, she notes significant improvement in her headache and complete resolution of her blurred vision. Her repeat neurological exam is non-focal. Plan is to discharge home with close primary care follow up. Results and treatment plan were discussed with the patient. Patient's questions were addressed. Danger signs and indications to return to the ED were discussed.Patient understands and agrees with the treatment plan. Patient in stable condition at discharge. Diagnosis: headache Disposition: discharge Care discussed with staff physician(s): Dr. Jaiden Smith MD Jaiden Henderson MD - 08/24/2015 10:53 PM CDT [facility] Emergency Department Visit Note Chief Complaint: Chief Complaint Patient presents with ??? HEADACHE--ED History of Present Illness HPI: Keyla Porter is a 25 y.o. old female with no history of migraine headaches who presents tot Emergency Department with sudden onset of headache which she describes as the worst of her life at 6:30 PM this evening she was walking around at the [facility]. She notes the headache was very sudden in onset and went from onset to maximal intensity immediately. She reports the headache is right sided and localized around her eye and extending to the back of her head rated at a 11/10. She also notes nausea and vomiting and some tingling in her right lower extremity. No recent trauma or falls. She denies neck pain or stiffness. No fever, chills, night sweats, chest pain, shortness of breath, abdominal pain, dysuria, diarrhea, or extremity weakness/numbness. She reports that she had a headache similar to this two weeks ago which resolved when she went to sleep. She notes family history of migraines as well as paternal history of intracranial aneurysms. Medications: Previous Medications IBUPROFEN (AKA MOTRIN) 600 MG TABLET Take 600 mg by mouth every 6 hours as needed for Pain. LEVONORGESTREL (AKA MIRENA) 20 MCG/24HR IUD 1 Each by Intrauterine route once. ONDANSETRON (AKA ZOFRAN) 4 MG DISINTEGRATING TABLET Take 1 Tab by mouth every 8 hours as needed forNausea. ONDANSETRON (AKA ZOFRAN) 4 MG TABLET Take 1 Tab by mouth every 8 hours as needed for Nausea. OXYCODONE-ACETAMINOPHEN (AKA PERCOCET) 5-325 MG TABLET Take 1-2 Tabs by mouth every 4 hours as needed for Pain. Allergies: Food and Morphine sulfate Problem List:There is no problem list on file for this patient. Past Medical History: Past Medical History Diagnosis Date ??? Galax ??? UTI ??? Endometriosis ??? Heart murmur ??? UTI (lower urinary tract infection) ??? Pyelonephritis Past Surgical History: Past Surgical History Procedure Laterality Date ??? Laparoscopy procedure endometriosis Social History Substance Use Topics ??? Smoking status: Current Every Day Smoker -- 0.50 packs/day Types: Cigarettes ??? Smokeless tobacco: Not on file ??? Alcohol Use: Yes Comment: social Review of Systems: 10 point review of systems negative apart from that mentioned in HPI. Physical Exam BP 125/78 mmHg Pulse 84 Temp(Src) 98 ??F (36.7 ??C) (Oral) Resp 16 SpO2 100% Physical Exam GENERAL: Female patient lying in bed in significant distress. HEENT: EOMI, PERRL, anicteric, no meningismus. CARDIAC: Regular rate, regular rhythm; normal S1, S2; no murmurs, rubs or gallops; LUNGS: clear to ascultation bilaterally, no wheezes, rales or rhonchi, no accessory muscle use, ABD: soft, non-tender, non-distended; no guarding, rigidity or peritoneal signs; patient vomited during the interview. BACK: No focal tenderness, no step-offs, no CVA tenderness SKIN: Warm and dry MSK: WWP, radial and DP pulses present; no peripheral edema NEURO: A&O x4, ZURITA, No gross focal deficits noted. CN II-XII intact; BUE - flexion, extension, show host/hostess 5/5; BLE - flexion, extension, dorso/plantar flexion 5/5; Dermatomes C5-T1 intact to light touch;dermatomes L2-S1 intact to light touch; Qpmocf-ip-bliy intact b/l; Romberg w/o noted imbalance; No pronator drift; Gait intact Medical Decision Making & ED Course Labs: CBC within normal limits. BMP with an anion gap of 17 both normal CO2. Imaging: CTA head with noncontrast CT are pending at the time of sign out. Medical Decision Making: Keyla Porter is a 25 y.o. old female presenting with sudden onset of worst headache of her lifewith no personal history of migraines with family history of migraines and intracranial aneurysm. Exam and history as above. Vital signs are within normal limits. Differential Diagnosis includes: Tension headache, migraine headache, subarachnoid hemorrhage, subdural hemorrhage, intracranial hemorrhage. Patient with presentation concerning for intracranial bleeding with family history of aneurysms as well as sudden onset of worst headache of her life. Imaging was ordered an was pending at the time of sign out. If CT/CTA is negative, given the recent onset of symptoms, I think that the intracranial hem orrhage/subarachnoid hemorrhage would be sufficiently ruled out and I do not think it would be necessary to perform a lumbar puncture. At that time, think it would be appropriate to work towards symptom control and discharge home with follow-up as needed for headaches. Low suspicion for meningitis or infectious etiology given no fever, meningismus or signs of infection. No leukocytosis. She was treated with IV fluids, Reglan and Benadryl with some relief of her headache. Pt was signed out to the night team at 11:15 pm. Patient remained stable during their time in the emergency department under my care. Pt discussed/examined with supervising physician. Diagnosis & Disposition Diagnosis: Pending Jaiden Henderson MD Emergency Medicine Resident, PGY2 Dinora Cherry RN - 08/24/2015 10:[address] Tacos Hall MD - 08/24/2015 10:39 PM CDT [facility] Emergency Department Attending Supervision Note I performed the conner elements of history and exam, and agree with resident's findings and plan of care as discussed with Jaiden Henderson. I have reviewed and agreed with the PMH, FH, SOC, ROS. Please see today's note by resident physician. Abrupt onset of ZELAYA without exertion. Some neck tenderness but no meningismus or fever to suggest meningitis. Given severity and onset will work up for SAH. No LP given the acute presentation and high sensitivity of newer CT for SAH. Home if better Assessment: Headache - abrupt onset Plan: CT/CTA Meds Check response Dispo pending Author: Tacos Hall MD Patient Vitals for the past 24 hrs: BP Temp Temp src Pulse Resp SpO2 08/24/15 2224 125/78 mmHg - - 84 16 100 % 08/24/15 2130 107/73 mmHg 98 ??F (36.7 ??C) Oral 94 20 99 % T Dinora Cherry RN - 08/24/2015 10:26 PM CDT Alert and oriented. Rates headache a10. Denies chance of , has IUD T Libertad Hu RN - 08/24/2015 9:33 PM CDT PT here with worst ZELAYA of life denies hx of previous ZELAYA's like this. Pt states it came on suddenly at 6:30pm, took ibuprofen/tylenol with no relief. States she had a ZELAYA like this the 1st time 2 weeks ago and she just laid down and it eventually went away. Pt is sensitive to light, sound, movement. +N/V. No hx of migraines. States her dad had migraines and hx of 7 brain aneurysms. documented in this encounter Plan of Treatment Not on filedocumented as of this encounter Procedures Procedure Name Priority Date/Time Associated Diagnosis Comme nts LUMBAR PUNCTURE Routine 08/25/2015 10:17 AM Resul ts for this CDT procedure are i n the results section. HSV MOLECULAR Routine 08/25/2015 3:00 AM Results for this DETECTION CDT procedure are i n the results section. CSF LAB ORDERS STAT 08/25/2015 3:00 AM Results for this CDT procedure are i n the results section. FIRST CSF CELL Routine 08/25/2015 3:00 AM Results for this COUNT & DIFF CDT procedure are i n the results section. SECOND CSF CELL Routine 08/25/2015 3:00 AM Result s for this COUNT & DIFF CDT procedure are i n the results section. SPINAL FLUID Routine 08/25/2015 3:00 AM Results f or this CULTURE & SMEAR CDT procedure ar e in the results section. CSF, GLUCOSE Routine 08/25/2015 3:00 AM Results f or this CDT procedure are i n the results section. CSF TOTAL PROTEIN Routine 08/25/2015 3:00 AM Resu lts for this CDT procedure are i n the results section. CT ANGIO HEAD W/WO STAT 08/24/2015 11:00 PM Re sults for this IV CONT CDT procedure are i n the results section. BB HOLD TUBE Routine 08/24/2015 10:40 PM Results for this ([facility] ONLY) CDT procedure are in the results section. GOLD HOLD TUBE (OR Routine 08/24/2015 10:20 PM Re sults for this RED/DUMONT) CDT procedure are i n the results section. COAG HOLD (BLUE Routine 08/24/2015 10:20 PM Resul ts for this TUBE) CDT procedure are i n the results section. BASIC METABOLIC STAT 08/24/2015 10:20 PM Resul ts for this PANEL CDT procedure are i n the results section. COMPLETE BLOOD STAT 08/24/2015 10:20 PM Result s for this COUNT-NO DIFF CDT procedure are in the results section. CREATININE/GFR, WB Routine 08/24/2015 10:15 PM Re sults for this POCT CDT procedure are i n the results section. documented in this encounter Results LUMBAR PUNCTURE (08/25/2015 10:17 AM CDT) Narrative Tesfaye Smith MD - 08/25/2015 10:17 AM CDT Tesfaye Smith MD ? 08/25/2015 10:17 AM Lumbar Puncture Date/Time: 08/25/2015 10:15 AM Performed by: TESFAYE SMITH Authorized by: JAIDEN SAAVEDRA Consent: Verbal consent obtained. Risks and benefits: risks, benefits and alternatives were discussed Consent given by: patient Patient identity confirmed: verbally wit h patient Indications: evaluation of Idiopathic in tracranial hypertension. Anesthesia: local infiltration Local anesthetic: lidocaine 1% without e pinephrine Anesthetic total: 12 ml Patient sedated: yes Sedation type: anxiolysis Sedatives: lorazepam Preparation: Patient was prepped and gonzalo ped in the usual sterile fashion. Lumbar space: L4-L5 interspace Patient's position: left lateral decubit us Needle gauge: 20 Needle type: spinal needle - Quincke tip Number of attempts: 3 Opening pressure: 12 cm H2O Fluid appearance: clear Tubes of fluid: 4 Total volume: 4 ml Post-procedure: site cleaned and adhesiv e bandage applied Patient tolerance: Patient tolerated the procedure well with no immediate complications Jaiden Saavedra MD EPICCARE PROCEDURES SPINAL FLUID CULTURE & SMEAR (08/25/2015 3:00 AM CDT) Component Value Ref Test Analysis Performed At [facility] Range Method Time Signature Specimen Cerebrospinal [facility] Description Fluid HOSPITAL Special Unspecified [facility] Requests [facility]OSPITAL Gram Smear No Organisms [facility] Seen [facility]OS[facility] Culture No Growth After [facility] 3 Days HOSPITAL Report Status Final 08/28/2015 [facility] Specimen Anatomical Collection Method Collection Time Receive d Time (Source) Location / / Volume Laterality 08/25/2015 3:00 AM 5 4:08 CDT AM CDT Narrative [facility] - 08/28/2015 4:03 PM CD T Performed at [facility] , [address] [place] [id number] Tacos Hall MD LAB_1 Performing Organization Address City/State/ZIP Code Phon e Number [address] [address] HSV MOLECULAR DETECTION (08/25/2015 3:00 AM CDT) [facility] Method Time Signature Source Cerebrospinal [facility] HSV DNA Not Detected NDET [facility] Specimen Anatomical Collection Method Collection Time Receive d Time (Source) Location / / Volume Laterality 08/25/2015 3:00 AM 5 4:08 CDT AM CDT [facility] - 08/25/2015 10:43 AM C DT Performed at [facility] , [address] [place] [id number] Tacos Hall MD LAB_1 Performing Organization Address City/[facility] Phon e Number [address] [address] SECOND CSF CELL COUNT & DIFF (08/25/2015 3:00 AM CDT) Component Value Ref Test Analysis Performed At [facility] Method Time Signature Source Cerebrospinal [facility] HOSPITAL Description, CSF Clear [facility] Tube # 4 [facility] Xanthochromia Absent [facility] RBC, CSF <1 /ul [facility] Nucleated Cells, 1 0 - 5 [facility] CSF /ul HOSPITAL PMN's 1 % [facility] Lymphocytes 87 % [facility] Monocyte/Macroph 12 % [facility] age HOSPITAL Specimen Anatomical Collection Method Collection Time Receive d Time (Source) Location / / Volume Laterality 08/25/2015 3:00 AM 5 3:41 CDT AM CDT [facility] - 08/25/2015 5:25 AM CD T Performed at [facility] , [address] [place] [id number] Tacos Hall MD LAB_1 Performing Organization Address City/[facility] Phon e Number [address] [address] CSF TOTAL PROTEIN (08/25/2015 3:00 AM CDT) [facility] Method Time Signature Source Cerebrospinal [facility] Total 39 mg/dl [facility] Protein, [facility] Comment: The use of this assay to monitor or diag nose patients has not been approved for this specimen type by the FDA or safety professional of this assay. Specimen Anatomical Collection Method Collection Time Receive d Time (Source) Location / / Volume Laterality 08/25/2015 3:00 AM 5 3:37 CDT AM CDT [facility] - 08/25/2015 4:25 AM CD T Performed at [facility] , [address] [place] [id number] Jaiden Saavedra MD LAB_1 Performing Organization Address City/[facility]/ZIP Code Phon e Number [address] [address] CSF, GLUCOSE (08/25/2015 3:00 AM CDT) [facility] [employer] Method Time Signature Source Cerebrospinal [facility] Glucose, CSF 54 mg/dl [facility] Comment: The use of this assay to monitor or diag nose patients has not been approved for this specimen type by the FDA or safety professional of this assay. Specimen Anatomical Collection Method Collection Time Receive d Time (Source) Location / / Volume Laterality 08/25/2015 3:00 AM 5 3:37 CDT AM CDT [facility] - 08/25/2015 4:25 AM CD T Performed at [facility] , [address] [place] [id number] Jaiden Saavedra MD LAB_1 Performing Organization Address City/[facility]/ZIP Code Phon e Number [address] [address] FIRST CSF CELL COUNT & DIFF (08/25/2015 3:00 AM CDT) Component Value Ref Test Analysis Performed At [facility] [employer] Range Method Time Signature Source Cerebrospinal [facility] HOSPITAL Description, CSF Clear [facility] Tube # 1 [facility] Xanthochromia Absent [facility] RBC, CSF 4 /ul [facility] Nucleated Cells, 2 /ul [facility] PMN's 2 % [facility] Lymphocytes 89 % [facility] Monocyte/Macroph 9 % [facility] Specimen Anatomical Collection Method Collection Time Receive d Time (Source) Location / / Volume Laterality 08/25/2015 3:00 AM 5 3:37 CDT AM CDT [facility] - 08/25/2015 5:16 AM CD T Performed at [facility] , [address] [place] [id number] Jaiden Saavedra MD LAB_1 Performing Organization Address City/State/ZIP Code Phon e Number [address] [address] CSF INFECTION PANEL (08/25/2015 3:00 AM CDT) [facility] Method Time Signature CSF/BF See Specific Lab [facility] Comment Orders for Test HOSPITAL Results Source Cerebrospinal [facility] Fluid HOSPITAL Volume (ml) 4 ml [facility] Specimen (Source) Anatomical Collection Method Collection Time Re ceived Time Location / / Volume Laterality Cerebrospinal fluid LUMBAR PUNCTURE / 08/25/2015 3:00 08/25/2015 specimen (specimen) Unknown AM CDT 3:37 AM CDT Narrative [facility] - 08/25/2015 3:41 AM CD T Performed at [facility] , [address] [place] [id number] Jaiden Saavedra MD LAB_1 Performing Organization Address [facility] Phon e Number [address] [address] [address] ANGIOGRAPHY HEAD (includes CT head w/o contrast) (08/24/2015 11:00 PM CDT) Anatomical Region Laterality Modality Neck, Head, Vascular Computed Tomography Specimen (Source) Anatomical Collection Method Collection Time Re ceived Time Location / / Volume Laterality 08/24/2015 11:00 PM CDT Narrative 08/25/2015 12:47 AM CDT [facility] HEAD CT ANGIOGRAM WITH IV CONTRAST 08/24/2015 11:00 PM INDICATION: Worst headache of life, rule out SAH. TECHNIQUE: Head CT angiogram with IV con trast. Noncontrast head CT followed by axial helical CT images of the intra cranial vessels obtained during the arterial phase of intravenous contrast administration. Axial helical 2D reconstructed images and multiplanar 3D MIP reconstructed images of the intracranial vessels were performed by lisandro caruso technologist. CONTRAST: 100 mL of Omnipaque 350 COMPARISON: None. FINDINGS: NONCONTRAST HEAD CT: No intra-axial or e xtra-axial hemorrhage. Normal cerebral parenchymal volume for patient' s age. No midline shift. The basilar cisterns are patent. Dumont-white matter differentiation is intact. No CT evidence for acute infarct. Probab le small arachnoid cyst in the midline posterior fossa. Mild mucosal thickening of the right max illary sinus. The rest of the paranasal sinuses and mastoid air cells are clear. The orbits are within normal limits. HEAD CTA: No significant stenosis or occ lusion in the proximal intracranial vessels. ??No aneurysm or vascular malf ormation identified. ??The vertebrobasilar system is unremarkable. The major dural venous sinuses are patent. CONCLUSION: HEAD CTA: 1. Noncontrast head CT demonstrates no h emorrhage, CT evidence of acute infarct. 2. Head CTA demonstrates no aneurysm or significant stenosis in the proximal intracranial vessels. Procedure Note Shar Gu MD - 08/25/2015For matting of this note might be different from the original. [facility] HEAD CT ANGIOGRAM WITH IV CONTRAST 08/24/2015 11:00 PM INDICATION: Worst headache of life, rule out SAH. TECHNIQUE: Head CT angiogram with IV con trast. Noncontrast head CT followed by axial helical CT images of the intra cranial vessels obtained during the arterial phase of intravenous contrast administration. Axial helical 2D reconstructed images and multiplanar 3D MIP reconstructed images of the intracranial vessels were performed by t shady technologist. CONTRAST: 100 mL of Omnipaque 350 COMPARISON: None. FINDINGS: NONCONTRAST HEAD CT: No intra-axial or e xtra-axial hemorrhage. Normal cerebral parenchymal volume for patient' s age. No midline shift. The basilar cisterns are patent. Dumont-white matter differentiation is intact. No CT evidence for acute infarct. Probab le small arachnoid cyst in the midline posterior fossa. Mild mucosal thickening of the right max illary sinus. The rest of the paranasal sinuses and mastoid air cells are clear. The orbits are within normal limits. HEAD CTA: No significant stenosis or occ lusion in the proximal intracranial vessels. No aneurysm or vascular malfor mation identified. The vertebrobasilar system is unremarkable. The major dural venous sinuses are patent. CONCLUSION: HEAD CTA: 1. Noncontrast head CT demonstrates no h emorrhage, CT evidence of acute infarct. 2. Head CTA demonstrates no aneurysm or significant stenosis in the proximal intracranial vessels. Tacos Hall MD RAD CT BB HOLD TUBE ([facility] ONLY) (08/24/2015 10:40 PM CDT) [facility] Method Time Signature BB Hold Tube Blood Bank [facility] expires in 3 days Specimen Anatomical Collection Method Collection Time Receive d Time (Source) Location / / Volume Laterality 08/24/2015 10:40 08/24/2015 PM CDT 10:46 PM CDT Narrative [facility] - 08/24/2015 10:48 PM C DT Performed at [facility] , [address] [place] [id number] Tacos Hall MD LAB_1 Performing Organization Address City/[facility]/ZIP Code Phon e Number [address] [address] GOLD HOLD TUBE (OR RED/DUMONT) (08/24/2015 10:20 PM CDT) Patholo gist Method Time Signature Gold Hold Held in [facility] Tube Chemistry HOSPITAL sample rack for 7 days Specimen Anatomical Collection Method Collection Time Receive d Time (Source) Location / / Volume Laterality 08/24/2015 10:20 08/24/2015 PM CDT 10:29 PM CDT Narrative [facility] - 08/24/2015 10:31 PM C DT Performed at [facility] , [address] [place] [id number] Tacos Hall MD LAB_1 Performing Organization Address City/[facility]/ZIP [facility] Phon e Number [address] [address] COAG HOLD (BLUE TUBE) (08/24/2015 10:20 PM CDT) P athologist Signature Coag Hold Held in [facility] Coag [facility] for 8 hours Specimen Anatomical Collection Method Collection Time Receive d Time (Source) Location / / Volume Laterality 08/24/2015 10:20 08/24/2015 PM CDT 10:29 PM CDT Narrative [facility] - 08/24/2015 10:31 PM C DT Performed at [facility] , [address] [place] [id number] Tacos Hall MD LAB_1 Performing Organization Address City/[facility]/ZIP [facility] Phon e Number [address] [address] HEMOGRAM/PLTS (08/24/2015 10:20 PM CDT) athologist Signature WBC 4.6 4.0 - 11.0 [facility] k/[facility] RBC 4.52 4.0 - 5.2 [facility] M/[facility] Hemoglobin 14.2 12.0 - 16.0 [facility] g/dl [facility] HCT 40.8 36.0 - 46.0 [facility] MCV 90.3 80 - 100 fl [facility] MCH 31.4 26 - 34 pg [facility] MCHC 34.8 32 - 36 [facility] g/dl HOSPITAL RDW 12.4 11.5 - 14.5 [facility] Platelets 188 150 - 450 [facility] MPV 10.3 9.4 - 12.4 [facility] Specimen Anatomical Collection Method Collection Time Receive d Time (Source) Location / / Volume Laterality 08/24/2015 10:20 08/24/2015 PM CDT 10:29 PM CDT Narrative [facility] - 08/24/2015 10:44 PM C DT Performed at [facility] , [address] [place] [id number] Tacos Hall MD LAB_1 Performing Organization Address City/State/ZIP Code Phon e Number [address] [address] (ABNORMAL) Basic Metabolic Panel (08/24/2015 10:20 PM CDT) athologist Signature Sodium 142 135 - 145 [facility] mmol/L [facility] Potassium 3.9 3.5 - 5.3 [facility] mmol/L [facility] Chloride 101 95 - 106 [facility] mmol/L [facility] CO2 24 22 - 30 [facility] mmol/L [facility] Anion Gap 17 (H) 7 - 16 [facility] (calc.) mmol/L [facility] Glucose 79 70 - 180 [facility] mg/dl [facility] Calcium 9.6 8.4 - 10.2 [facility] mg/dl [facility] BUN 16 7 - 20 [facility] mg/dl [facility] Creatinine 0.87 0.52 - [facility] 1.04 mg/dl [facility]OS[facility]ITAL GFR, Estimated >60 >60 [facility] ml/min/1.7 [facility] 3m2 GFR, Est., If >60 >60 [facility] Black ml/min/1.7 [facility] 3m2 Specimen Anatomical Collection Method Collection Time Receive d Time (Source) Location / / Volume Laterality 08/24/2015 10:20 08/24/2015 PM CDT 10:29 PM CDT Narrative [facility] - 08/24/2015 10:53 PM C DT Performed at [facility] , [address] [place] [id number] Tacos Hall MD LAB_1 Performing Organization Address City/[facility]/ZIP [facility] Phon e Number [address] [address] POC CREAT WHOLE BLOOD (08/24/2015 10:15 PM CDT) athologist Signature Creat Whole 1.0 0.52 - [facility] Blood 1.04 mg/dl [facility]OSPITAL Specimen Anatomical Collection Method Collection Time Receive d Time (Source) Location / / Volume Laterality 08/24/2015 10:15 08/24/2015 PM CDT 10:17 PM CDT Physician Unknown LAB_1 Performing Organization Address [facility] Phon e Number [address] [address] documented in this encounter Visit Diagnoses Diagnosis Headache, unspecified headache type - Pr imary documented in this encounter Administered Medications Inactive Administered Medications - up to 3 most recent administrations Medication Order MAR Action Action Date Dose Rate Site diphenhydrAMINE (aka BENADRYL) Given 08/24/2015 10:18 PM CDT 25 mg injection 25 mg 25 mg, Intravenous, ONCE, On 08/24/15 at 2202, For 1 dose diphenhydrAMINE (aka BENADRYL) injection 25 mg Given 08/25/2015 1:40 AM CDT 25 mg 25 mg, Intravenous, ONCE, On 08/25/15 at 0123, For 1 dose HYDROmorphone (aka DILAUDID) injection 0.5 Given 08/24/2015 11:43 PM CDT 0.5 mg mg 0.5 mg, Intravenous, ONCE, On 08/24/15 at 2334, For 1 dose, Caution: Look-alike, sound-alike medication. LORazepam (aka ATIVAN) injection 0.5 mg Given 08/25/2015 2:07 AM CDT 0.5 mg 0.5 mg, Intravenous, ONCE, On 08/25/15 at 0159, For 1 dose, Caution: Look-alike, sound-alike medication. metoCLOPRAMIDE (aka REGLAN) injection 10 mg Given 08/24/2015 10:24 PM CDT 10 mg 10 mg, Intravenous, ONCE, On 08/24/15 at 2202, For 1 dose, Risk of tardive dyskinesia increases with higher doses or long durations of metoclopramide therapy. NaCl 0.9 % infusion 1,000 mL Started 08/24/2015 10:17 PM CDT 1,000 mL 999 mL/hr 1,000 mL, Intravenous, at 999 mL/hr, ONCE, On 08/24/15 at 2202, For 1 dose, Bolus ondansetron (aka ZOFRAN) injection 4 mg Given 08/24/2015 11:40 PM CDT 4 mg 4 mg, Intravenous, ONCE, On 08/24/15 at 2334, For 1 dose prochlorPERAZINE (aka COMPAZINE) injection 10 Given 1:59 AM CDT 10 mg mg 10 mg, Intravenous, ONCE, On 08/25/15 at 0123, For 1 dose, Caution: Look-alike, sound-alike medication. documented in this encounter Active and Recently Administered Medications Times are shown in CDT. Scheduled Medication Order 08/23/2015 08/24/2015 08/25/2015 diphenhydrAMINE (aka BENADRYL) injection 25 mg (COMPLETED) 2217 (Given - Provider: Dinora Cherry RN) 25 mg, Intravenous, ONCE, 1 dose, 08/24/15 at 2202 diphenhydrAMINE (aka BENADRYL) injection 25 mg (COMPLETED) 0140 (Given - Provider: Kamaljit Sexton RN) 25 mg, Intravenous, ONCE, 1 dose, 08/25/15 at 0123 HYDROmorphone (aka DILAUDID) injection 0.5 mg (COMPLETED) 2343 (Given - Provider: Kamaljit Sexton RN) 0.5 mg, Intravenous, ONCE, 1 dose, 08/24/15 at 2334 LORazepam (aka ATIVAN) injection 0.5 mg (COMPLETED) 0207 (Given - Provider: Kamaljit Sexton RN - Comment: pre procedure, LP) 0.5 mg, Intravenous, ONCE, 1 dose, 08/25/15 at 0159 metoCLOPRAMIDE (aka REGLAN) injection 10 mg (COMPLETED) 2224 (Given - Provider: Dinora Cherry RN) 10 mg, Intravenous, ONCE, 1 dose, 08/24/15 at 2202 NaCl 0.9 % infusion 1,000 mL (COMPLETED) 221 (Started - Provider: Dinora Cherry RN) 0030 (Infused - Provider: Kamaljit Sexton RN) 1,000 mL, at 999 mL/hr, Intravenous, ONCE, 1 dose, 08/24/15 a t 2202 ondansetron (aka ZOFRAN) injection 4 mg (COMPLETED) 2340 (Given - Provider: Kamaljit Sexton RN) 4 mg, Intravenous, ONCE, 1 dose, 08/24/15 at 2334 prochlorPERAZINE (aka COMPAZINE) injection 10 mg (COMPLETED) 015 (Given - Provider: Kamaljit Sexton RN) 10 mg, Intravenous, ONCE, 1 dose, 08/25/15 at 0123 documented in this encounter Care Teams Drug Room Operator Relationship Specialty Start Date End Date No Primary/Referring, Phy PCP - General 08/01/12 documented as of this encounter
--- OUTSIDE RECORDS SUMMARY | 2022-08-31 22:22 | XMS_ITS | Encounter Summary ---
:1990 Author Organization [facility] Address [address] [place] [address] Care Team Providers Name Role Phone No Primary/Referring, Phy Primary Care Provider Unavailable Reason for Visit Procedure/Equipment (Routine) - Incomplete Specialty Diagnoses / Procedures Referred By Contact Refer red To Contact Procedures Tacos Mathias MD US PELVIS COMPLETE W INTERNAL [address] [place] [address] Referral ID Status Reason Start Date Expiration Date Visits V isits Requested Authorized [id number] Incomplete 12/31/2014 1 1 Encounter Details Date Type Department Care Team Description 12/31/2014 Imaging [facility] Radiology Ul trasound [address] [place] [address] Social History Tobacco Use Types Packs/Day Years [...] Priority Date/Time Associated Diagnosis Comme nts US PELVIC COMPLETE STAT 12/31/2014 12:00 PM Re sults for this W EV STAFF ANESTHESIOLOGIST procedure are i n the results section. documented in this encounter Results US PELVIS COMPLETE W INTERNAL VAGINAL (12/31/2014 12:00 PM STAFF ANESTHESIOLOGIST) Anatomical Region Laterality Modality Pelvis Ultrasound Specimen (Source) Anatomical Collection Method Collection Time Re ceived Time Location / / Volume Laterality 12/31/2014 12:00 PM STAFF ANESTHESIOLOGIST Narrative 12/31/2014 2:25 PM STAFF ANESTHESIOLOGIST US PELVIS COMPLETE W/IVT (UTERUS/OVARIES) 12/31/2014 12:00 PM INDICATION: Adnexal pain. Endometriosis. TECHNIQUE: Transabdominal scans were per formed. Endovaginal ultrasound was performed to better visualize the adnexa . COMPARISON: Pelvis 06/01/2013. FINDINGS: Uterus measures 8.1 x 3.9 x 6.0 cm. Ther e is an IUD in place. This is in the mid fundus. Several small nabothian cysts are seen. Endometrial stripe measures 2-3 mm with trace fluid in the endometrial canal. Right ovary measures 3.2 x 1.6 x 2.9 cm. Normal appearance of the right ovary with normal arterial and venous bl ood flow identified. ?? Left ovary measures left ovary measures 4.9 x 2.3 x 2.9 cm and also demonstrates a normal morphologic appear ance with normal arterial and venous blood flow. Normal left ovary. No rmal arterial duplex. Trace free fluid in the cul-de-sac. CONCLUSION: 1. ??Ovaries are both within normal limi ts. Normal arterial and venous blood flow is seen in both ovaries with no ev idence of ovarian torsion. 2. ??IUD is visualized within the uterus . Procedure Note Maddison Maki MD - 12/31/2014Formatti ng of this note might be different from the original. US PELVIS COMPLETE W/IVT (UTERUS/OVARIES ) 12/31/2014 12:00 PM INDICATION: Adnexal pain. Endometriosis. TECHNIQUE: Transabdominal scans were per formed. Endovaginal ultrasound was performed to better visualize the adnexa . COMPARISON: Pelvis 06/01/2013. FINDINGS: Uterus measures 8.1 x 3.9 x 6.0 cm. Ther e is an IUD in place. This is in the mid fundus. Several small nabothian cysts are seen. Endometrial stripe measures 2-3 mm with trace fluid in the endometrial canal. Right ovary measures 3.2 x 1.6 x 2.9 cm. Normal appearance of the right ovary with normal arterial and venous bl ood flow identified. Left ovary measures left ovary measures 4.9 x 2.3 x 2.9 cm and also demonstrates a normal morphologic appear ance with normal arterial and venous blood flow. Normal left ovary. No rmal arterial duplex. Trace free fluid in the cul-de-sac. CONCLUSION: 1. Ovaries are both within normal limits . Normal arterial and venous blood flow is seen in both ovaries with no ev idence of ovarian torsion. 2. IUD is visualized within the uterus. Tacos Mathias MD [facility] US documented in this encounter Visit Diagnoses Not on filedocumented in this encounter Care Teams Skidder Loader Relationship Specialty Start Date End Date No Primary/Referring, Phy PCP - General 08/01/12 documented as of this encounter
--- OUTSIDE RECORDS SUMMARY | 2022-08-31 22:22 | XMS_ITS | Encounter Summary ---
:1990 Author Organization [facility] Address [address] [place] [address] Care Team Providers Name Role Phone Unavailable Primary Care Provider Unavailable Reason for Visit Reason Comments SORE THROAT--ED Encounter Details Date Type Department Care Team Description 10/20/2011 Emergency [facility] Emergency Dept Kay Alcantar MD Acute bronchitis; [address] [facility] [place] [address] [place] [address] [phone] (Wo rk) Social History Tobacco Use Types Packs/Day Years Used Date Smoking Tobacco: Every Day Cigarettes 0.5 Alcohol Use Standard Drinks/Week Comments No 0 (1 standard drink = 0.6 oz pure alcoho l) Sex Assigned at Date Recorded Not on file documented as of this encounter Last Filed Vital Signs Vital Sign Reading Time Taken Comments Blood Pressure 113/75 10/20/2011 11:09 AM FOOD PREPARER Pulse 79 10/20/2011 11:09 AM FOOD PREPARER Temperature 36.9 ??C (98.4 ??F) 10/20/2011 11:09 AM FOOD PREPARER Respiratory Rate 16 10/20/2011 11:09 AM FOOD PREPARER Oxygen Saturation 100% 10/20/2011 11:09 AM FOOD PREPARER Inhaled Oxygen Concentration - - Weight - - Height - - Body Mass Index - - documented in this encounter Discharge Instructions Discharge Kay Dietz - 10/20/2011 12:18 PM CST Images from the original note were not included. Ibuprofen (Advil, Motrin) 600mg with food every 6 hours for pain. Acetaminophen (Tylenol) 500mg tabs 2 every 6 hours as needed for pain. Mucinex (guifenesin) 600mg 2 tablets by mouth every 12 hours as needed for cough or congestion. Stop smoking!!! Please follow up with your primary care provider if your symptoms don't improve.Low Cost or Free Community Clinics in [facility] [phone] - [address] [facility] [phone] - [address] [facility] [address] [facility] [phone] - [address] [facility] [phone] - [address] [facility] [phone] - [address] [facility] [phone] - [address] [facility] [phone] - [address] [place] [address] [address] [facility] [phone] - [address] [facility] [phone] - 135 [facility] [phone] - [address] [facility] [phone] [facility] [phone] [address] [facility] [phone] - [address] [facility] [phone] - 153 [facility] Thank you for choosing [facility] for your emergency medical needs. You have received emergency care; however, your condition may change. Therefore, we highly recommend you follow-up with your Primary Care Provider or Specialist as directed. Any diagnostic tests performed today (x-rays, EKG, lab tests, etc.) have been reviewed by your Emergency Department Provider. We will contact you at once if other important findings are identified after further review. If you do not continue to improve, or if your condition worsens, please call your Primary Care Provider or the Emergency Department right away. When you see your Provider, bring your medications and instructions to the office. Your Medical Provider or Nurse discussed the following with you: ?? Danger signs to watch out for when you got home. ?? If you were given new medication, how to take the new medication. ?? If you were given new medication, the possible side effects (you may have been referred to the Pharmacist to discuss side effects). ?? Who to call if you have any questions or concerns after you leave the Emergency Department. ?? That other ways you can get care quickly are Urgent Care, Convenience Care or Quick Clinics, and online care. If you would like to be seen in a [facility] clinic, please call the [facility] Appointment Desk at [phone] anytime between 7:00 AM and 9:00 PM, 7 days a week, 365 days a year (Hearing Impaired: [phone]). Please bring these instructions with you when you are seen at your follow-up appointment. Emergency Department Return to Work Note Patient Name: Keyla Porter Date of : 1990 Date of Evaluation: 10/20/2011 Return to work tomorrow. No follow-up recommended unless symptoms warrant. Kay Jimenes PA-C 10/20/2011 12:17 PM Electronically Signed Acute Bronchitis Bronchitis is a problem of the air tubes leading to your lungs. Acute means the illness started quickly. In this condition, the lining of those tubes becomes swollen and can leak fluid. This makes it harder for air to get in and out of your lungs. You may cough a lot. This is because the air tubes arenarrow. Bronchitis is most often caused by a virus. Medicines that kill germs (antibiotics) may be needed with bacterial infections for people who: ?? Smoke. ?? Have lasting (chronic) lung problems. ?? Are elderly. HOME CARE ?? Rest. ?? Drink fluids. ?? Only take medicine as told by your doctor. ?? Medicines may be given (prescribed) that will open up your airways. This will help make breathingeasier. ?? Bronchitis usually gets better on its own in a few days. Recovery from some symptoms of bronchitis may be slow. You should start feeling a little better after 2 to 3 days. Coughing may last for 3 to 4 weeks. GET HELP RIGHT AWAY IF: ?? You or your child has a temperature by mouth above 102?? F (38.9?? C), not controlled by medicine. ?? Chills or chest pain develop. ?? You or your child develops severe shortness of breath. ?? You notice that you or your child has bloody saliva mixed with mucus (sputum). ?? You or your child throws up (vomits) often, is dry (dehydrated), feels faint, or has a severe headache. ?? You or your child does not improve after 1 week of treatment. MAKE SURE YOU: ?? Understand these instructions. ?? Will watch your condition. ?? Will get help right away if you are not doing well or get worse. Document Released: 04/25/2009 Document Re-Released: 11/29/2010 [employer]?? Patient Information ??2011 [employer]. Pharyngitis (Viral and Bacterial) Pharyngitis is a sore throat. It is an infection of the back of the throat (pharynx). HOME CARE ?? Only take medicine as directed by your doctor. You or your child may get sick again if you do nottake your medicine as directed. ?? Drink enough water and fluids to keep your pee clear or pale yellow. Drink: l Water. l Gatorade. l Juice. l Fruit drinks. l Herbal tea l Soup or broth. ?? Rest. ?? Gargle with salt water (?? tsp. of salt in a glass of water) every 1 to 2 hours. This will help the pain. ?? For children over the age of 7, suck on hard candy or sore throat lozenges. ?? Use a decongestant for a stuffy nose. If you have high blood pressure, do not use this until advised by your doctor. CAUSES ?? Common germs: l Viruses. This is what causes the common cold. l Bacteria. ?? Post nasal drip (draining sinuses, allergies). ?? Sleeping with your mouth open. TREATMENT Sore throats caused by a virus usually last 3 to 4 days. Medicines are used to help you feel better until the problem gets better on its own. You will need to take antibiotic medicine for a sore throatcaused by bacteria. Strep throat is one type of sore throat caused by bacteria germs. It will get better in 24 to 48 hours after you start taking the antibiotics. GET HELP IF: ?? You or your child develops large, tender lumps in the neck. ?? You or your child has a rash. ?? Green, yellow-brown or bloody mucus is coughed up. ?? You have or your child has a temperature by mouth above 102?? F (38.9?? C). ?? Your baby is older than 3 months with a rectal temperature of 100.5?? F (38.1?? C) or higher for more than 1 day. GET HELP RIGHT AWAY IF: ?? You have or your child has a stiff neck. ?? You or your child drools or is unable to swallow liquids. ?? You or your child throws up (vomits) or is not able to keep medicine or liquids down. ?? You or your child has severe pain that will not stop with pain medicine. ?? You or your child has problems breathing (not part of stuffy nose). ?? You or your child cannot open the mouth completely. ?? You have or your child has redness, puffiness (swelling) or severe pain anywhere on the neck. ?? You or your child has a temperature by mouth above 102?? F (38.9?? C), not controlled by medicine. ?? Your baby is older than 3 months with a rectal temperature of 102?? F (38.9?? C) or higher. ?? Your baby is 3 months old or younger with a rectal temperature of 100.4?? F (38?? C) or higher. Ask your doctor when your test results will be ready. Make sure you follow up and get your test results. Document Released: 11/29/2010 [employer]?? Patient Information ??2010 [employer]. garganta causado por un virus generalmente dura3 ?? 4 d??as. Los medicamentos se indican para obtener alivio hasta que la enfermedad mejore por s??misma. Si el ann de PREPARER documented in this encounter Medications at Time of Discharge Medication Sig Dispensed Refills Start Date End Date acetaminophen (AKA TYLENOL Take 2 Tabs by 100 Tab 0 10/2002/26/2012 EXTRA STRENGTH) 500 MG mouth every 6 tablet hours as needed for Pain. ACETAMINOPHEN-CODEINE #3 Take 1-2 tablets 12 0 05/0702/26/2012 300-30 MG OR TABS by mouth every 4-6 hours as needed for pain. DEPO-PROVERA 150 MG/ML IM 150 mg given in 1 3 05/0802/26/2012 [facility] clinic today diphenhydramine (AKA Take 2 Caps by 30 Cap 0 04/26/2011 06/01/2013 BENADRYL) 25 MG capsule mouth every 6 hours as needed for Itching. guaifenesin (AKA MUCINEX) Take 2 Tabs by 28 Tab 0 201002/26/2012 600 MG 12 hour release mouth two times a tablet day. ibuprofen (AKA MOTRIN) 600 Take 1 Tab by 40 Tab 0 201002/26/2012 MG tablet mouth every 6 hours as needed for Pain. IBUPROFEN 600 MG OR TABS take 1 tab every 30 0 05/0702/26/2012 4-6 hrs prn pain METHERGINE 0.2 MG OR TABS take 1 tab tid x 3 9 0 02/26/2012 days predniSONE (AKA DELTASONE) Take 1 Tab by 5 Tab 0 201002/26/2012 50 MG tablet mouth daily. documented as of this encounter ED Notes Neville Levi - 10/20/2011 12:30 PM CST Pt discharged home by ZAYNAB, no prescriptions given. PREPARER Neville Levi - 10/20/2011 11:57 AM CST Agree with triage assessment. Kay Raymond - 10/20/2011 11:43 AM CST [facility] Emergency Department Attending Supervision Note MARLA Care under my supervision. Kay Alexis - 10/20/2011 11:40 AM CST [facility] Emergency Department Visit Note Chief Complaint: Chief Complaint Patient presents with ??? SORE THROAT--ED HPI: Keyla Porter is a 21 yr old female that presents to the ED with a 7 day history of sinus and nasal congestion, sore throat, swollen glands, chest congestion and productive cough. She has tried acetaminophen without improvement of symptoms. She had a temp of 100.2 last night. She has not been exposed to ill contacts at work. Meds: No outpatient prescriptions have been marked as taking for the 10/20/11 encounter (Hospital Encounter). Allergies: Food Social History: CURRENT CIGARETTE SMOKER Review of Systems: General: see HPI HEENT: see HPI Respiratory: see HPI Physical Exam: BP 113/75 Pulse 79 Temp(Src) 98.4 ??F (36.9 ??C) (Oral) Resp 16 SpO2 100% General: alert, oriented to person, place, time and normal hydration Eyes: PERRL, EOMI and conjunctivae clear Ears: pearly lu bilateral TMs and non-inflamed external ear canals Nose: no rhinorrhea/nasal discharge Mouth/Throat: no exudates, no erythema, structures midline and bilateral tonsillar erythema and enlargement, no trismus or muffled voice Neck: supple, full AROM and tender anterior lymphadenopathy Chest/Pulmonary: chest clear with equal lung sounds bilaterally, no chest wall tenderness or deformities and no tachypnea Cardiovascular: S1, S2 normal and regular rate and rhythm Medical Decision Making: upper respiratory infection symptoms with Normal vitals. CXR is not indicated. Rapid Strep test is negative. Assessment: 1. Acute bronchitis (466.0) 2. Viral pharyngitis (462AT) Plan: Reassurance given regarding lack of signs of serious infection. Discussed home treatment with acetaminophen, ibuprofen, Mucinex. Recommend follow up in primary care as needed, or sooner if symptoms persist. Return to the ED with fever, trouble swallowing or breathing or any concerns. Condition on disposition: Stable Patient seen with: Kay Alcantar PREPARER Tiffanie Baron RN - 10/20/2011 11:10 AM CST Alert female who c/o sore throat for a week and 1/2. Smoker. Cough. Throat mildly reddened. Skin warm and dry. Even regular respirations. PREPARER documented in this encounter Miscellaneous Notes Media - [facility], PROVIDER - 10/20/2011 5:13 PM FOOD PREPARER documented in this encounter Plan of Treatment Not on filedocumented as of this encounter Procedures Procedure Name Priority Date/Time Associated Diagnosis Comme nts RAPID STREP THROAT STAT 10/20/2011 11:40 AM Re sults for this FOOD PREPARER procedure are i n the results section. BETA STREP FOLLOWUP Routine 10/20/2011 11:40 AM R esults for this FOOD PREPARER procedure are i n the results section. documented in this encounter Results BETA STREP FOLLOWUP (10/20/2011 11:40 AM FOOD PREPARER) [facility] to-BBB Method Time Signature Specimen Throat Swab [facility] Description Special Unspecified [facility] Requests Culture <10% Beta [facility] Hemolytic Streptococci,No t Group A Report Status Final [facility] 10/22/2011 Specimen Anatomical Collection Method Collection Time Receive d Time (Source) Location / / Volume Laterality 10/20/2011 11:40 10/20/2011 AM FOOD PREPARER 12:41 PM FOOD PREPARER Kay Alcantar MD LAB_1 Performing Organization Address [facility] e Number [address] [address] [place], [place] [phone] RAPID STREP THROAT (10/20/2011 11:40 AM FOOD PREPARER) [facility] to-BBB Method Time Signature Rapid Strep, Direct test DTN [facility] Throat negative, culture sent Comment: CORRECTED ON 10/20 AT 1218: PRE VIOUSLY REPORTED Negative Specimen Anatomical Collection Method Collection Time Receive d Time (Source) Location / / Volume Laterality Throat swab 10/20/2011 11:40 10/20/2011 (specimen) AM FOOD PREPARER 11:58 AM FOOD PREPARER Kay Alcantar MD LAB_1 Performing Organization Address [facility] e Number [address] [address] [place], [place] [phone] documented in this encounter Visit Diagnoses Diagnosis Acute bronchitis Viral pharyngitis Acute pharyngitis documented in this encounter
--- OUTSIDE RECORDS SUMMARY | 2022-08-31 22:22 | XMS_ITS | Encounter Summary ---
:1990 Author Organization [facility] Address [address] [place] [address] Care Team Providers Name Role Phone Unavailable Primary Care Provider Unavailable Reason for Visit Reason Comments RASH --ED Encounter Details Date Type Department Care Team Description 11/24/2011 Emergency [facility] Emergency Dept Apoorva Johnson, LEFT WITHOUT BEING [address] MD SEEN/FINISHED/[place] [address] [address] [phone] [place] [address] (Wo rk) Social History Tobacco Use Types Packs/Day Years Used Date Smoking Tobacco: Every Day Cigarettes 0.5 Alcohol Use Standard Drinks/Week Comments No 0 (1 standard drink = 0.6 oz pure alcoho l) Sex Assigned at Date Recorded Not on file documented as of this encounter Last Filed Vital Signs Vital Sign Reading Time Taken Comments Blood Pressure 111/69 11/24/2011 7:33 PM CAREER DEVELOPER Pulse 82 11/24/2011 7:33 PM CAREER DEVELOPER Temperature 37.1 ??C (98.7 ??F) 11/24/2011 7:33 PM CAREER DEVELOPER Respiratory Rate 16 11/24/2011 7:33 PM CAREER DEVELOPER Oxygen Saturation 100% 11/24/2011 7:33 PM CAREER DEVELOPER Inhaled Oxygen Concentration - - Weight - - Height - - Body Mass Index - - documented in this encounter Medications at Time [...] documented as of this encounter ED Notes Apoorva Johnson - 11/24/2011 11:00 PM CST Left without being seen. ER DEVELOPER Tiffanie Baron RN - 11/24/2011 10:42 PM CST Not in lobby. ER DEVELOPER Tiffanie Baron RN - 11/24/2011 7:34 PM CST Alert female with reddened area to top of left arm for the past two days that itches and fine red spots around it. Has tried neosporin and lotion without easing of symptoms. ER DEVELOPER documented in this encounter Plan of Treatment Not on filedocumented as of this encounter Visit Diagnoses Diagnosis LEFT WITHOUT BEING SEEN/FINISHED/VERENA ENRIQUEZ documented in this encounter
--- OUTSIDE RECORDS SUMMARY | 2022-08-31 22:22 | XMS_ITS | Encounter Summary ---
:1990 Author Organization [employer] Address [address] [place] [address] Care Team Providers Name Role Phone No Primary/Referring, Phy Primary Care Provider Unavailable Reason for Visit Reason Comments SORE THROAT--ED L side- onset at 0100 Encounter Details Date Type Department Care Team Description 03/09/2014 Emergency [facility] Emergency Dept [place] Strep pharyngitis [address] Dougherty MD (Primary Dx) [place] [address] [address] [facility] [phone] [place], [place] [id number] (Wo rk) Social History Tobacco Use Types Packs/Day Years Used Date Smoking Tobacco: Every Day Cigarettes 0.5 Alcohol Use Standard Drinks/Week Comments Yes 0 (1 standard drink = 0.6 oz pure alcoho l) social Sex Assigned at Date Recorded Not on file documented as of this encounter Last Filed Vital Signs Vital Sign Reading Time Taken Comments Blood Pressure 112/65 03/09/2014 1:05 PM CDT Pulse 109 03/09/2014 1:05 PM CDT Temperature 37.3 ??C (99.2 ??F) 03/09/2014 1:05 PM CDT Respiratory Rate 12 03/09/2014 1:05 PM CDT Oxygen Saturation 100% 03/09/2014 1:05 PM CDT Inhaled Oxygen Concentration - - Weight - - Height - - Body Mass Index - - documented in this encounter Discharge Instructions Discharge InstructionsUmu De La Cruz PA-C - 03/09/2014 3:48 PM CDT Images from the original note were not included. Please follow up with your primary care provider in the next 3-5 days if no improvement, sooner withANY worsening or concerning symptoms. Push fluids, salt water gargles Emergency Department Return to Work Note Patient Name: Keyla Porter Date of : 1990 Date of Evaluation: 03/09/2014 The above patient was seen and evaluated in the Emergency Department at [facility]. The patient can return to work on the date of 03/11/14 without restrictions. Umu De La Cruz PA-C 03/09/2014 3:47 PM Electronically Signed Strep Throat: After Your Visit Your Care Instructions Strep throat is a bacterial infection that causes sudden, severe sore throat and fever. Strep throat, which is caused by bacteria called streptococcus, is treated with antibiotics. Sometimes a strep test is necessary to tell if the sore throat is caused by strep bacteria. Treatment can help ease symptoms and may prevent future problems. Follow-up care is a conner part of your treatment and safety. Be sure to make and go to all appointments, and call your doctor if you are having problems. It???s also a good idea to know your test resultsand keep a list of the medicines you take. How can you care for yourself at home? ?? Take your antibiotics as directed. Do not stop taking them just because you feel better. You needto take the full course of antibiotics. ?? Strep throat can spread to others until 24 hours after you begin taking antibiotics. During this time, you should avoid contact with other people at work or home, especially infants and children. Donot sneeze or cough on others, and wash your hands often. Keep your drinking glass and eating utensils separate from those of others, and wash these items well in hot, soapy water. ?? Gargle with warm salt water at least once each hour to help reduce swelling and make your throat feel better. Use 1 teaspoon of salt mixed in 8 fluid ounces of warm water. ?? Take an yiki-npu-qqxjhfu pain medication, such as acetaminophen (Tylenol), ibuprofen (Advil, Motrin), or naproxen (Aleve). Read and follow all instructions on the label. ?? Drink plenty of fluids. Fluids may help soothe an irritated throat. Hot fluids, such as tea or soup, may help your throat feel better. ?? Eat soft solids and drink plenty of clear liquids. Flavored ice pops, ice cream, scrambled eggs, sherbet, and gelatin dessert (such as Jell-O) may also soothe the throat. ?? Get lots of rest. ?? Do not smoke, and avoid secondhand smoke. If you need help quitting, talk to your doctor about stop-smoking programs and medicines. These can increase your chances of quitting for good. ?? Use a vaporizer or humidifier to add moisture to the air in your bedroom. Follow the directions for cleaning the machine. When should you call for help? Call your doctor now or seek immediate medical care if: ?? You have a new or higher fever ?? You have a fever with a stiff neck or severe headache. ?? You have new or worse trouble swallowing. ?? Your sore throat gets much worse on one side. ?? Your pain becomes much worse on one side of your throat. Watch closely for changes in your health, and be sure to contact your doctor if: ?? You are not getting better after 2 days (48 hours). ?? You do not get better as expected. Where can you learn more? Go to [employer]/in2apps and enter K625 in the search box. Last Revised: April 06, 2013 ?? [id number] [employer] documented in this encounter ED Notes Tacos Hall MD - 03/11/2014 11:06 AM CDT [facility] Emergency Department Attending Supervision Note MARLA Care under my supervision. BP 112/65 Pulse 109 Temp(Src) 99.2 ??F (37.3 ??C) (Oral) Resp 12 SpO2 100% No results found for this or any previous visit (from the past 24 hour(s)). Catrina Rai RN - 03/09/2014 4:09 PM CDT [facility] ED Nursing Discharge Note Vital Signs: BP: 112/65 mmHg Temp: 99.2 ??F (37.3 ??C)Temp src: Oral Pulse: 109 Resp: 12 SpO2: 100 % Pain Scale (0-10): 10 Admission Date/Time: 03/09/2014 1:12 PM Attending MD: Tacos Hall MD Patient discharged: to Home. Patient accompanied by: parent. Transported by: Walked Valuables were taken home by patient: Yes Work/School Slip given: Yes Discharge instructions given and explained to patient: Yes Discharge prescriptions given and explained to patient: No Patient verbalized understanding. Yes Patient level of pain on discharge: 05/30 Patients condition on discharge related to chief complaint and treatment in ED: Patient instructed to follow-up with PMD if symptoms don't improve in 3-5 days. Encouraged to return with worsening/concerning symptoms. Patient denies further questions and concerns. ---End of Report--- Dominick Santana RN - 03/09/2014 2:51 PM CDT Zofran administered. Pt tearful, states she has tried lidocaine and ibuprofen at home without relief. Discussed POC and assured pt would discuss her concerns with provider. Umu De La Cruz PA-C - 03/09/2014 2:17 PM CDT [facility] Emergency Department Visit Note Chief Complaint: SORE THROAT--ED History of Present Illness DERECK Porter is a 23 yr old female who presents with sore throat and fever that started suddenly last evening. She denies any ill contacts. She describes nausea and has had vomiting because of thenausea. She describes painful swallowing because of the pain. She has tried ibuprofen and lidocaine for pain without relief. She has not taken anything in the past 6 hours. She denies any breathing difficulties nor trismus. She denies any headache, abdominal pain, dark colored urine nor urinary symptoms. No recent illness nor URI symptoms. Up to date on immunizations. Rest of Complete ROS negative. Denies -uses IUD. There are no discharge medications for this patient. Allergies: Food and Morphine sulfate There is no problem list on file for this patient. Past Medical History Diagnosis Date ??? Schley ??? UTI ??? Endometriosis ??? Heart murmur ??? UTI (lower urinary tract infection) ??? Pyelonephritis Past Surgical History Procedure Laterality Date ??? Laparoscopy procedure endometriosis History Substance Use Topics ??? Smoking status: Current Every Day Smoker -- 0.50 packs/day Types: Cigarettes ??? Smokeless tobacco: Not on file ??? Alcohol Use: Yes Comment: social Review of Systems Constitutional: Positive for fever and chills. Negative for fatigue. HENT: Positive for sore throat and trouble swallowing. Negative for voice change. Eyes: Negative. Respiratory: Negative. Cardiovascular: Negative. Gastrointestinal: Positive for nausea and vomiting. Negative for diarrhea. Genitourinary: Negative. Skin: Negative. Physical Exam Vital signs: BP 112/65 Pulse 109 Temp(Src) 99.2 ??F (37.3 ??C) (Oral) Resp 12 SpO2 100% Physical Exam General: alert, oriented to person, place, and time with normal hydration and in no acute distress Head: atraumatic, normocephalic Eyes: PERRL, EOMI, corneas clear and conjunctivae clear without pallor and sclerae anicteric Ears: pearly lu bilateral TMs and non-inflamed external ear canals Nose: no rhinorrhea/nasal discharge Mouth/Throat: Lips dry and buccal mucosa moist. Posterior oropharynx with bilateral tonsillar redness, swelling and exudate. Swelling of tonsils are very mild and symmetric. Uvula is midline and floor of mouth supple. Neck: supple and full active ROM. No nuchal rigidity. Bilateral tonsillar lymphadenopathy. Chest/Pulmonary: chest clear with equal lung sounds bilaterally without adventitious sounds, no chest wall tenderness or deformities and no tachypnea. No egophany. Cardiovascular: S1, S2 normal and regular rate and rhythm without murmur, rub nor gallop. Abdomen: Bowel sounds normoactive. Abdomen is soft, non-tender to superficial and deep palpation in all four quadrants. No guarding, no rigidity, no rebound tenderness and no tenderness with generalized percussion. No tenderness at McBurney's, Neg Cruz's, Neg Psoas sign. Skin: Good skin turgor without Rashes and diaphoresis with skin color normal Medical Decision Making & ED Course Zofran 8 mg ODT for nausea with good relief Ibuprofen 600 mg po X 1 for pain She is drinking liquids here without emesis La bicillin 1.2 million units IM Follow up with PCP in the next week if no improvement, sooner with ANY worsening or concerning symptoms. Return immediately with any swallowing or breathing difficulties. Diagnosis & Disposition Diagnosis: 1. Strep pharyngitis Dominick Santana, RN - 03/09/2014 1:13 PM CDT Roomed. Agree with triage assessment. Call light provided. Awaiting provider. Esthela Smith RN - 03/09/2014 1:09 PM CDT Pt reports sudden onset of sore throat- worse on L sie- + fevers, nausea ad vomiting documented in this encounter Miscellaneous Notes Media - [facility], PROVIDER - 03/09/2014 12:00 AM CDT documented in this encounter Plan of Treatment Not on filedocumented as of this encounter Procedures Procedure Name Priority Date/Time Associated Diagnosis Comme nts STREP GRP A, RAPID STAT 03/09/2014 2:33 PM Res ults for this SCREEN CDT procedure are i n the results section. documented in this encounter Results (ABNORMAL) STREP GRP A, RAPID SCREEN Perform a culture if negative screen?: No (03/09/2014 2:33 PM CDT) [facility] gist Method Time Signature Grp A Rapid Positive (A) NEG [facility] Specimen Anatomical Collection Method Collection Time Receive d Time (Source) Location / / Volume Laterality 03/09/2014 2:33 PM 4 2:38 CDT PM CDT Narrative [facility] - 03/09/2014 2:51 PM CD T Performed at [facility] , [address] [place] [id number] [place] MD LAB_1 Performing Organization Address City/State/ZIP Code Phon e Number [address] [id number] [address] [id number] documented in this encounter Visit Diagnoses Diagnosis Strep pharyngitis - Primary Streptococcal sore throat documented in this encounter Administered Medications Inactive Administered Medications - up to 3 most recent administrations Medication Order MAR Action Action Date Dose Rate Site ibuprofen (aka ADVIL) oral liquid Given 03/09/2014 3:23 PM CDT 6 00 mg 600 mg 600 mg, Oral, ONCE, On 03/09/14 at 1452, For 1 dose, Give with food or milk. ondansetron (aka ZOFRAN) disintegrating tablet Given 0 03/09/2014 2:50 PM CDT 8 mg 8 mg 8 mg, Oral, ONCE, On 03/09/14 at 1432, For 1 dose penicillin G benzathine (aka Given 03/09/2014 3:20 PM CDT 1,200, 000 Units BICILLIN L-A) injection 1,200,000 Units 1,200,000 Units (1.2 Million Units), Intramuscular, ONCE, On 03/09/14 at 1509, For 1 dose documented in this encounter Active and Recently Administered Medications Times are shown in CDT. Scheduled Medication Order 03/07/2014 03/08/2014 03/09/2014 ibuprofen (aka ADVIL) oral liquid 600 mg (COMPLETED) 1523 (Given - Provider: Catrina Rai RN) 600 mg, Oral, ONCE, 1 dose, 03/09/14 at 1452 ondansetron (aka ZOFRAN) disintegrating tablet 8 mg (COMPLETED) 1450 (Given - Provider: Dominick Santana RN) 8 mg, Oral, ONCE, 1 dose, 03/09/14 at 1432 penicillin G benzathine (aka BICILLIN L- A) injection 1,200,000 Units (COMPLETED) 1520 (Given - Provid er: Catrina Rai RN) 1.2 Million Units = 1,200,000 Units, IM, ONCE, 1 dose, Sat at 1509 documented in this encounter Care Teams Contracts Officer Relationship Specialty Start Date End Date No Primary/Referring, Phy PCP - General 08/01/12 documented as of this encounter
--- OUTSIDE RECORDS SUMMARY | 2022-08-31 22:22 | XMS_ITS | Encounter Summary ---
:1990 Author Organization [facility] Address [address] [place] [address] Care Team Providers Name Role Phone Unavailable Primary Care Provider Unavailable Reason for Referral Specialty Diagnoses / Procedures Referred By Contact Refer red To Contact [facility] [address] [place] [address] Referral ID Status Reason Start Date Expiration Date Visits Requ ested Visits Authorized Scheduling Instructions Your provider has recommended an appoint ment with [facility]. You may call [phone] to schedule your a ppointment. If you prefer, a furnace installer will contact you within the next 3 business d ays to assist you in setting up this appointment. Reason for Visit Reason Comments RASH --ED Encounter Details Date Type Department Care Team Description 04/26/2011 Emergency [facility] Emergency Dept Javier Guerra Dermatitis due to sun; [address] Har[address] Nixon MD Unspecified dermatitis [place] [address] [phone] [place], [place] [id number] Social History Tobacco Use Types Packs/Day Years Used Date Smoking Tobacco: Every Day Cigarettes 0.5 Alcohol Use Standard Drinks/Week Comments No 0 (1 standard drink = 0.6 oz pure alcoho l) Sex Assigned at Date Recorded Not on file documented as of this encounter Last Filed Vital Signs Vital Sign Reading Time Taken Comments Blood Pressure 127/83 04/25/2011 11:36 PM CDT Pulse 80 04/25/2011 11:36 PM CDT Temperature 36.7 ??C (98 ??F) 04/25/2011 11:36 PM CDT Respiratory Rate 14 04/25/2011 11:36 PM CDT Oxygen Saturation 99% 04/25/2011 11:36 PM CDT Inhaled Oxygen Concentration - - Weight - - Height - - Body Mass Index - - documented in this encounter Discharge Instructions Discharge Lluvia Gonzalez - 04/26/2011 2:43 AM CDT Please follow up with your primary care provider in 1-2 weeks.Low Cost or Free Community Clinics in [facility] [phone] - [address] [facility] [phone] - [address] [facility] [phone] - [address] [facility] [phone] - [address] [facility] [phone] - [address] [facility] [place] [phone] - [address] [facility] [phone] - [address] [place] [address] [address] [facility] [phone] - [address] [facility] [phone] - [address] [facility] [phone] - [address] [facility] [phone] [facility] [phone] [address] [facility] [phone] - [address] [facility] [phone] - 153 [facility] Thank you for choosing [facility] for your emergency medical needs. You have received emergency care only and your condition may change. Therefore, we highly recommend you follow-up with your physician as directed. When you see your doctor, bring your medications and instructions to the office. If you had x-rays, an EKG, or lab tests today, they have been reviewed by your emergency department doctor. We will contact you at once if other important findings are notified after further review of our staff. If you donot continue to improve or if your condition worsens, please call your doctor or the emergency room right away. I understand that my condition may require more care and will arrange for further treatment as recommended. Your medical provider or nurse discussed with you the following: ?? Danger signs to watch out for when you got home. ?? If you were given new medication, we discussed how to take the new medication. ?? If you were given new medication, we discussed the possible side effects, or referred you to talkto the pharmacist. ?? If you have any questions or concerns after you leave the ED, then you knew who to call. If you would like to be seen in a [facility] clinic, please call the [facility] Appointment Desk at [phone] anytime between 7:00 AM and 9:00 PM, 7 days a week, 365 days a year (Hearing Impaired: [phone]). Please bring these instructions with you when you are seen in your follow-up appointment. . Dermatitis Dermatitis is inflammation of the skin. There are many different causes of dermatitis. Dermatitis usually appears in the form of a rash. The skin appears: ?? Red. ?? Blotchy. ?? Swollen. Skin from dermatitis may also be: ?? Dry. ?? Itchy. ?? Cracked. ?? Painful/burning. ?? Moist. Dermatitis is usually not life-threatening. It cannot be passed from one person to another. Dermatitis usually causes discomfort and people may be bothered by the way their skin looks. Common examples of dermatitis are: Atopic dermatitis Atopic dermatitis is also known as eczema and is a life-long problem. It is a dry itchy rash that comes and goes. It tends to get better with age. Contact dermatitis This is a rash that comes from repeated contact with a substance that irritates the skin. Examples include: ?? Soap. ?? Poison Nisa. ?? Perfume. Seborrheic dermatitis This is normally found on the scalp and face as a yellowish rash with a greasy scale that looks likedandruff. Stasis dermatitis This is a rash caused by having excess fluid under the skin of the legs from poor blood circulation.It appears pink to crump or brown in color. This rash is usually accompanied by swelling of the legs. Diaper rash This appears in the diaper area of children as a result of constant contact with urine and feces trapped between the skin and diaper. Hand dermatitis This occurs on the hands and appears as small, raised, itchy bumps. Some may be filled with clear fluid. Neurodermatitis This is a life-long, severely itchy skin condition that occurs in a specific area of your body, suchas the: ?? Back of your neck. ?? Wrists. ?? Ankles. It leads to dry, thickened skin from scratching or rubbing the affected areas. Perioral dermatitis This is a rash that appears around the mouth as small, red bumps. It can be made worse by food or saliva getting on the skin around the mouth. HOME CARE Most dermatitis can be treated using steroids you put on your skin. These may be prescribed by your doctor or may be bought over the counter. Medicine to help with the itching can also be prescribed. If the dermatitis is dry, keep the skin well moisturized with ointments twice a day. You may also haveto give up certain activities that make your rash worse. GET HELP IF: ?? Your skin does not get better with prescribed or krya-lur-ovlhpnq medicine. ?? You develop signs of infection like fever, pus, redness, or swelling. ?? Your skin rash affects your activities of daily living. Document Released: 09/04/2010 ExitCare?? Patient Information ??2010 [employer]. documented in this encounter Medications at Time of Discharge Medication Sig Dispensed Refills Start Date End Date ACETAMINOPHEN-CODEINE #3 Take 1-2 tablets 12 0 05/0702/26/2012 300-30 MG OR TABS by mouth every 4-6 hours as needed for pain. DEPO-PROVERA 150 MG/ML IM 150 mg given in 1 3 05/0802/26/2012 SUSP clinic today diphenhydramine (AKA Take 2 Caps by 30 Cap 0 04/26/2011 06/01/2013 BENADRYL) 25 MG capsule mouth every 6 hours as needed for Itching. IBUPROFEN 600 MG OR TABS take 1 tab every 30 0 05/0702/26/2012 4-6 hrs prn pain METHERGINE 0.2 MG OR TABS take 1 tab tid x 3 9 0 02/26/2012 days predniSONE (AKA DELTASONE) Take 1 Tab by 5 Tab 0 201002/26/2012 50 MG tablet mouth daily. documented as of this encounter ED Notes Lluvia Aiken - 04/29/2011 12:30 AM CDT [facility] Emergency Department Visit Note Chief Complaint: RASH --ED HPI: 20 year old female here with rash. Patient reports a rash to her face, arms, and back of neck since being in the sun a few days ago. Her skin has been burning and itching. She also has nausea and lightheadedness. Patient has had multiple severe reactions to the sun in the past year with a severe rash. She reports that she's been using spf 70 sunblock but it still doesn't help. No trouble sleeping or SOB. Meds: No outpatient prescriptions have been marked as taking for the 04/26/11 encounter (Hospital Encounter). Allergies:Food PMH: Past Medical History Diagnosis Date ??? [place] ??? UTI No past surgical history on file. History Substance Use Topics ??? Smoking status: Current Everyday Smoker -- 0.5 packs/day Types: Cigarettes ??? Smokeless tobacco: Not on file ??? Alcohol Use: No No family history on file. Review of Systems Constitutional: Negative for fever. Gastrointestinal: Positive for nausea. Skin: Positive for color change and rash. Neurological: Positive for light-headedness. All other systems reviewed and are negative. Vital signs: BP 127/83 Pulse 80 Temp(Src) 98 ??F (36.7 ??C) (Oral) Resp 14 SpO2 99% Physical Exam Constitutional: She is oriented to person, place, and time. She appears well- developed and well-nourished. HENT: Head: Normocephalic and atraumatic. Cardiovascular: Normal rate, regular rhythm and normal heart sounds. Pulmonary/Chest: Effort normal and breath sounds normal. Neurological: She is alert and oriented to person, place, and time. Skin: Skin is warm and dry. Red rash present on face, arms, and back of neck in large patches. Psychiatric: She has a normal mood and affect. Medical Decision Makin20 year old female with rash. Patient appears to be having a severe reaction to the sun. Rash appears more like an allergic dermatitis rather than sun burn. There are large, very red plaques throughoutthe sun-exposed areas. Due to severity and extensive amount of skin the rash covers, I will prescribe oral steroids to help with her rash. She should take Benadryl as well. Patient was encouraged to F/U in clinic for this problem to discover why she is having severe reactions when in the sun. Patient understands and agrees. PCP referral placed. Vitals stable. Assessment: 1. 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 Francisco Shelton RN - 04/26/2011 2:41 AM CDT Pt exam done home with referrals and rx and instructions Francisco Shelton RN - 04/26/2011 2:02 AM CDT Pt to room f-8 from triage with a red raised rash from sun exposure ERDR to see. Neville Ferrara RN - 04/25/2011 11:38 PM CDT Pt arrives with c/o rash on both arms, trunk and face. Pt states that she gets this off and on sincesurgery last year when she goes into the sun. States she has itching and burning. Denies sob, problems swallowing. documented in this encounter Miscellaneous Notes Media - [facility], PROVIDER - 04/26/2011 9:58 PM CDT documented in this encounter Plan of Treatment Scheduled Referrals Name Type Priority Associated Diagnoses [facility] Referral Routine Ordered : 04/26/2011 documented as of this encounter Visit Diagnoses Diagnosis Dermatitis due to sun Unspecified dermatitis due to sun Unspecified dermatitis due to sun documented in this encounter
--- OUTSIDE RECORDS SUMMARY | 2022-08-31 22:22 | XMS_ITS | Encounter Summary ---
:1990 Author Organization [facility] Address [address] [place] [address] Care Team Providers Name Role Phone Unavailable Primary Care Provider Unavailable Encounter Details Date Type Department Care Team Description 06/02/2006 Correspondence None [facility] Conse nt and Release Social History Tobacco Use Types Packs/Day Years Used Date Smoking Tobacco: Never Assessed Sex Assigned at Date Recorded Not on file documented as of this encounter Progress Notes [facility] BHARAT, PROVIDER - 06/02/2006 12:00 AM CDT documented in this encounter Plan of Treatment Not on filedocumented as of this encounter Visit Diagnoses Not on filedocumented in this encounter
--- OUTSIDE RECORDS SUMMARY | 2022-08-31 22:22 | XMS_ITS | Encounter Summary ---
:1990 Author Organization [facility] Address [address] [place] [address] Care Team Providers Name Role Phone Unavailable Primary Care Provider Unavailable Reason for Visit Reason Comments KNEE PAIN--ED Encounter Details Date Type Department Care Team Description 06/02/2006 - Emergency [facility] Emergency [facility] SPRAIN/STRAIN KNEE & 06/03/2006 [address] Doug[address] MD LEG NOS [place], [place] [id number] [address] [facility] [phone] [place] [address] Social History Tobacco Use Types Packs/Day Years Used Date Smoking Tobacco: Never Assessed Sex Assigned at Date Recorded Not on file documented as of this encounter Last Filed Vital Signs Vital Sign Reading Time Taken Comments Blood Pressure 131/67 06/03/2006 12:41 AM CDT Pulse 65 06/03/2006 12:41 AM CDT Temperature 37.2 ??C (99 ??F) 06/02/2006 9:52 PM CDT Respiratory Rate 18 06/03/2006 12:41 AM CDT Oxygen Saturation 99% 06/03/2006 12:41 AM CDT Inhaled Oxygen Concentration - - Weight - - Height - - Body Mass Index - - documented in this encounter Discharge Instructions Discharge Swetha Mccormick - 06/03/2006 12:20 AM CDT Dear Ms. Porter, Thank you for choosing [facility] for your emergency medical needs. You have received emergency care only and your condition may change. Therefore, we highly recommend you follow-up with your physician as directed. For follow-up care contact: Please follow up with your primary care clinic/provider. Further workup and treatment may be needed if symptoms persist, worsen or new related symptoms occur. For follow-up care, you should be seen within 7 days. Wear immobilizer and use crutches. Follow up with your doctor for recheck in 7 days. When you see your doctor, bring your medications and instructions to the office. If you had x-rays,an EKG, or lab tests today, they have been reviewed by your emergency department doctor. We will contact you at once if other important findings are notified after further review of our staff. If you do not continue to improve or if your condition worsens, please call your doctor or the emergency roomright away. I understand that my condition may require more care and will arrange for further treatment as recommended. Your medical provider or nurse discussed with you the following: * Danger signs to watch out for when you got home. * If you were given new medication, we discussedhow to take the new medication. * If you were given new medication, we discussed the possible side effects, or referred you to talk to the pharmacist. * If you have any questions or concerns after you leave the ED, then you knew who to call. If you would like to be seen in a [facility] clinic, please call the [facility] Appointment Desk at [phone] anytime between 7:00 AM and 9:00 PM, 7 days a week, 365 days a year (Hearing Impaired: ). Please bring these instructions with you when you are seen in your follow-up appointment. Co-pays for this visit may be paid for at the discharge desk. Knee Sprain Your caregiver has diagnosed you as suffering from a knee sprain. Sprains are painful injuries to the joints as a result of partial or complete tearing of ligaments. Ligaments are tough, fibrous tissues that hold bones together at the joints. A strain (sprain) has occurred when a ligament is stretchedor damaged. This injury may take several weeks to heal. This is often the same length of time as a bone fracture (break in bone) takes to heal so even though a fracture (bone break) may not have occurred, the recovery times may be similar. HOME CARE INSTRUCTIONS ?? Rest the injured area as directed. Then slowly start using the joint as directed by your caregiver and as the pain allows. Use crutches as directed. If the knee was splinted or casted, continue use and care as directed. If an camacho bandage has been applied today, it should be removed and reapplied every 3 to 4 hours. It should not be applied tightly, but firmly enough to keep swelling down. Watch toes and feet for swelling, bluish discoloration, coldness, numbness or excessive pain. If any of thesesymptoms occur, remove the camacho bandage and reapply more loosely. If these symptoms persist, contact your caregiver or return to this location. ?? For the first 24 hours, keep the injured extremity elevated on 2 pillows while lying down. ?? Apply ice for fifteen minutes to the injured area every couple hours while awake for the first half day, then four times per day for the first 48 hours. Put the ice in a plastic bag and place a towel between the bag of ice and your skin. ?? Do not apply heat for 48 hours after your injury. Early use of heat will increase swelling and pain. After 48 hours you may use warm packs or warm soaks for 15 to 20 minutes, 2 to 4 times per day. This will give increased pain relief and faster resolution of the injury. Do not sleep with a heating pad as it may cause ruelas. ?? Wear any splinting, casting, or elastic bandage applications as instructed. ?? Over the counter medications may be used as directed by your caregiver. Acetaminophen (Tylenol(R)) or ibuprofen (Advil(R) or Motrin(R)) may be used to relieve pain and discomfort. Do not use aspirinimmediately after the injury unless instructed by your physician. Aspirin can cause increased bleeding and bruising of the tissues. ?? If you were given crutches, continue to use them as instructed and do not resume weight bearing on the affected extremity until instructed. Persistent pain and inability to use the injured area as directed for more than 2 to 3 days are warning signs indicating that you should see a caregiver for a follow-up visit as soon as possible. Initially, a hairline fracture (this is the same as a broken bone) may not be evident on x-rays. Persistent pain and swelling indicate that further evaluation, non-weight bearing (use of crutches as instructed), and/or further x-rays are indicated. X-rays may sometimes not show a small fracture until a weekor ten days later. Make a follow-up appointment with your own caregiver or one to whom we have referred you. A radiologist (specialist in reading x-rays) may re-read your X-rays. Make sure you know howyou are to obtain your x-ray results. Do not assume everything is normal if you do not hear from us. CALL IF: ?? Bruising, swelling, or pain increases. ?? You have cold or numb toes. RETURN IMMEDIATELY IF: ?? Your toes are numb or blue. ?? The pain is not responding to medications and continues to stay the same or get worse. ExitCare(R) Patient Information (C)2004 [employer]. \\\epic\ExitcareNonfieldFull\NonFields\di\Frisian - No Haynes\[email or web address].htm documented in this encounter ED Notes Neville Ferrara - 06/03/2006 12:41 AM CDT knee immobolizer placed and crutches given. crutch walking instructions given. pt demonstrates correct use prior to discharge. cab voucher given. discharge instructions given, no questions or concerns. rx for motrin given. Swetha Hung - 06/03/2006 12:14 AM CDT [facility] Emergency Department Visit Note Patient Name: Keyla Porter Date of : 1990 Chief Complaint: Patient presents with: KNEE PAIN--ED HPI: 15yo female, mom has given permission to treat daughter over the phone, here with right knee pain. jumped up and landed wrong on it 4 days ago. did not hear a pop but had immediate and states herknee looked funny. she was than able to pop it back in. has hx of knee dislocations. when asked toclarify this she cannot. she has pain with walking. hasnt iced, elevated or wrapped the knee. thinksit is swollen. no redness or warmth of the joint. PMH: No past medical history on file. No past surgical history on file. Meds: No active medications on file as of 06/02/2006 Allergies: Review of patient's allergies indicates no known allergies. Social and Family History: Tobacco Use: Not on file Alcohol Use: Not on file No family history on file Review of Systems: Please see [email or web address] flowsheet for review of systems. Physical Exam: Pulse 74 Temp (Src) 99 (Oral) Resp 14 SaO2 100% General: alert, oriented to person, place, time and normal hydration Head: atraumatic Nose: no rhinorrhea/nasal discharge Mouth/Throat: no hoarseness Musculoskel/Extremities: no effusion. no redness,swelling or warmth. actively can fully extend and flexion to 60degrees. patella tracks normally. small bruise to the medial knee. no laxity when stressing the ligaments. lochmans negative. Psychiatric: poor historian. no eye contact. flat affect. Medical Decision Making: xray negative. immobilizer and crutches. fu with ortho one week. Assessment: knee strain Plan: Planned Disposition: home rx ibuprofen 800mg Condition on disposition: Stable Patient seen with: [facility] This electronic signature covers the nursing and ancillary testing orders for this visit. Author: Swetha Hung - 06/03/2006 12:14 AM [facility] - 06/03/2006 12:03 AM CDT [facility] Emergency Department Attending Supervision Note Patient Name: Keyla Porter Date of : 1990 PA-C Care under my supervision. Author: [facility] MD - 06/03/2006 12:04 AM Neville Ferrara - 06/02/2006 11:58 PM CDT pt states on tuesday she dislocated knee and popped it back into place. triage nurse states pt walked in, now pt states unable to due to pain. pt went to xa. pt has 2 small bruises on outside of knee.awaiting pa to see. Neville Ferrara - 06/02/2006 11:57 PM CDTBed: 33
Expected date:
Expected time:
Means of arrival:
Comments:
triage Neville Ferrara - 06/02/2006 11:29 PM CDT pt to xray. Sanjuana Bhatti - 06/02/2006 9:55 PM CDT THINKS THAT SHE DISLOCATED HER RIGHT KNEE ON TUESDAY AND POPPED IT BACK IN BUT IT IS NOW SWOLLEN AND SHE IS HAVING 9/10 PAIN. documented in this encounter Plan of Treatment Not on filedocumented as of this encounter Procedures Procedure Name Priority Date/Time Associated Diagnosis Comme nts KNEE, RIGHT Routine 06/02/2006 11:41 PM Results for this CDT procedure are i n the results section . documented in this encounter Results KNEE, RIGHT (06/02/2006 11:41 PM CDT) Anatomical Region Laterality Modality Other Specimen (Source) Anatomical Collection Method Collection Time Re ceived Time Location / / Volume Laterality 06/02/2006 11:41 PM CDT Impressions 06/03/2006 7:36 AM CDT IMPRESSION: No evidence of acute or chronic abnormal ity. Narrative 06/03/2006 7:36 AM CDT pain: TRAUMA RIGHT KNEE SERIES, 06/02/2006 COMPARISON: ??None. HISTORY: ??Trauma and pain. [facility] MD [facility] documented in this encounter Visit Diagnoses Diagnosis Sprain and strain of unspecified site of knee and leg documented in this encounter
--- OUTSIDE RECORDS SUMMARY | 2022-08-31 22:22 | XMS_ITS | Encounter Summary ---
:1990 Author Organization [facility] Address [address] [place] [address] Care Team Providers Name Role Phone No Primary/Referring, Phy Primary Care Provider Unavailable Reason for Visit Reason Comments RASH --ED was treated for bed bugs a w [place] ago Encounter Details Date Type Department Care Team Description 03/18/2012 Emergency [facility] Emergency Dept Augustine Steel MD Urticaria [address] [facility] [address] [place] [address] [place] [address] [phone] (Wo rk) Social History Tobacco Use Types Packs/Day Years Used Date Smoking Tobacco: Never Assessed Sex Assigned at Date Recorded Not on file documented as of this encounter Last Filed Vital Signs Vital Sign Reading Time Taken Comments Blood Pressure 120/75 03/18/2012 1:27 AM CDT Pulse 103 03/18/2012 1:27 AM CDT Temperature 36.9 ??C (98.4 ??F) 03/18/2012 1:27 AM CDT Respiratory Rate 13 03/18/2012 1:27 AM CDT Oxygen Saturation 98% 03/18/2012 1:27 AM CDT Inhaled Oxygen Concentration - - Weight - - Height - - Body Mass Index - - documented in this encounter Discharge Instructions Discharge Nanci Lozano MD - 03/18/2012 3:41 AM CDT Images from the original note were not included. Major procedures performed during your visit: None Please follow up with your primary care provider if your symptoms don't improve. Thank you for choosing [facility] for your emergency medical needs. [...] would like to be seen in a [facility] clinic, please call the [facility] Appointment Desk at [phone] anytime between 7:00 AM and 9:00 PM, 7 days a week, 365 days a year (Hearing Impaired: [phone]). Please bring these instructions with you when you are seen at your follow-up appointment. .Hives: After Your Visit Your Care Instructions Hives are raised, red, itchy patches of skin. They are also called wheals or welts. They usually have red borders and pale centers. Hives range in size from ?? inch to 3 inches or more across. They mayseem to move from place to place on the skin. Several hives may form a large area of raised, red skin. You can get hives after an insect sting, after taking medicine or eating certain foods, or because of infection or stress. Other causes include plants, things you breathe in, makeup, heat, cold, sunlight, and latex. You cannot spread hives to other people. Hives may last a few minutes or a few days, but a single spot may last less than 36 hours. Follow-up care is a conner part of your treatment and safety. Be sure to make and go to all appointments, and call your doctor if you are having problems. It???s also a good idea to know your test resultsand keep a list of the medicines you take. How can you care for yourself at home? ?? Avoid whatever you think may have caused your hives, such as a certain food or medicine. However,you may not know the cause. ?? Put a cool, wet towel on the area to relieve itching. ?? Take an rtxf-tit-mvgmavq antihistamine, such as diphenhydramine (Benadryl), cetirizine (Zyrtec), or loratadine (Claritin), to help stop the hives and calm the itching. Read and follow directions on the label. These medicines can make you feel sleepy. Do not drive while using them. ?? Stay away from strong soaps, detergents, and chemicals. These can make itching worse. When should you call for help? Call 911 anytime you think you may need emergency care. For example, call if: ?? You have symptoms of a severe allergic reaction. These may include: ?? Sudden raised, red areas (hives) all over your body. ?? Rapid swelling of the throat, mouth, or tongue. ?? Trouble breathing. Call your doctor now or seek immediate medical care if: ?? You get hives after you start a new medicine. ?? Hives cover all or most of your body. ?? Hives have not gone away after 24 hours. Watch closely for changes in your health, and be sure to contact your doctor if: ?? You do not get better as expected. Where can you learn more? Go to [email or web address] and enter K772 in the search box. ?? [id number] [employer]. Content Version: 9.1.987008; Last Revised: March 11, 2011 documented in this encounter Medications at Time of Discharge Medication Sig Dispensed Refills Start Date End Date diphenhydramine (AKA Take 1-2 Caps by 30 Cap 0 2 06/01/2013 BENADRYL) 25 MG capsule mouth every 6 hours as needed for Itching. diphenhydramine (AKA Take 2 Caps by 30 Cap 0 04/26/2011 06/01/2013 BENADRYL) 25 MG capsule mouth every 6 hours as needed for Itching. HYDROcodone-acetaminophen Take 1-2 Tabs by 8 Tab 0 05/201206/01/2013 (NORCO) 5-325 MG tablet mouth at bedtime as needed for Pain. hydrocortisone 2.5 % cream Apply topically two 30 g 0 03/18/2012 06/01/2013 times a day. hydrOXYzine HCl (AKA Take 1-2 Tabs by 20 Tab 0 2 06/01/2013 ATARAX) 25 MG tablet mouth every 6 hours as needed for Itching. permethrin (AKA ELIMITE) 5 Apply topically. Apply head to toe (avoid eyes, nose, mouth), leave on for 8 hours before washing off. Repeat in 14 days. 60 g 0 02/26/2012 06/01/2013 % cream predniSONE (AKA DELTASONE) Take 1 Tab by mouth 10 Tab 0 03/18/2012 06/01/2013 20 MG tablet daily. documented as of this encounter ED Notes Nanci Golden MD - 03/18/2012 5:20 AM CDT [facility] Emergency Department Visit Note Chief Complaint: rash HPI: Keyla DAVILA is a 21 yr female who presents with a 2 day history of a pruritic rash on her hand, abdominal wall, arm, back, buttock, chest, ear, lower leg and thigh. There Has not been exposure to new medications, foods or hygiene products. There Has not been difficulty breathing, throat swelling or lip swelling. she Has tried OTC medications (benadryl) without relief. Patient 10 wk . Medications: No outpatient prescriptions have been marked as taking for the 03/18/12 encounter (Hospital Encounter). Allergies: Review of patient's allergies indicates no known allergies. Review of Systems: Mouth/Throat: see HPI Resp: see HPI Skin: see HPI Physical Exam: BP 120/75 Pulse 103 Temp(Src) 98.4 ??F (36.9 ??C) (Oral) Resp 13 SpO2 98% General: alert, oriented to person, place, time and normal hydration Eyes: PERRL, EOMI, corneas clear and conjunctivae clear Nose: no rhinorrhea/nasal discharge Mouth/Throat: no exudates, no erythema and no dental tenderness Chest/Pulmonary: chest clear with equal lung sounds bilaterally, no chest wall tenderness or deformities and no tachypnea Cardiovascular: S1, S2 normal and regular rate and rhythm Skin: large areas of coalescing papules --> plaques, raised, mildly warm/red and excoriated, morenoticeable at areas of pressure (waist band) Medical Decision Making: Keyla DAVILA is a 21 yr old female with history and exam consistent with urticaria. No respiratory symptoms and normal vitals. Assessment: urticaria Plan: Vistaril Prednisone 20mg once a day for 5 days Hydrocortisone cream First dose was not given in the ED. Follow up with PCP if not improving in 2 days and return to the ER with trouble breathing, throat/mouth/lip swelling or any other concerns. Condition on disposition: Stable Patient seen with: Augustine Steel Peyton Kowalski RN - 03/18/2012 4:06 AM CDT [facility] ED Nursing Discharge Note Vital Signs: BP: 120/75 mmHg Temp: 98.4 ??F (36.9 ??C)Temp src: Oral Pulse: 103 Resp: 13 SpO2: 98 % Pain Scale (0-10): 8 Admission Date/Time: 03/18/2012 4:06 AM Attending MD: Augustine Steel Patient discharged: to Home. Patient accompanied by: self. 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 New Prescriptions HYDROCORTISONE 2.5 % CREAM Apply topically two times a day. HYDROXYZINE HCL (AKA ATARAX) 25 MG TABLET Take 1-2 Tabs by mouth every 6 hours as needed for Itching. PREDNISONE (AKA DELTASONE) 20 MG TABLET Take 1 Tab by mouth daily. Patient verbalized understanding. Yes Patient level of pain on discharge: Patients condition on discharge related to chief complaint and treatment in ED: Stable and pt understands instructions and ready for discharge. ---End of Report--- T Augustine Steel MD - 03/18/2012 3:50 AM CDT [facility] Emergency Department Attending Supervision Note Augustine Steel M.D. Patient Name: Keyla coon Date of : 1990 I performed the conner elements of the history and exam, and agree with the findings and plan of care as discussed with Dr. Nanci Golden. PMH, FH, SOC, ROS reviewed-- Please see today's note by the midlevel provider for full details regarding the ED visit. Chief Complaint Patient presents with ??? RASH --ED was treated for bed bugs a week ago HPI: This is a 21 yr female presenting to the [facility] ED with a rash. Exam: BP 120/75 Pulse 103 Temp(Src) 98.4 ??F (36.9 ??C) (Oral) Resp 13 SpO2 98% General: Alert, oriented to person, place, time. Normal hydration. Patient in no obvious distress. Head: Atraumatic Skin: diffuse rash noted, seems urticarial in appearance Neuro: Speech clear and gait stable Psychiatric: Affect/mood normal, patient is cooperative with normal judgement/insight Assessment/Plan and Medical Decision Making: -21 yr female, , in with rash PLAN Tx with meds FU this week This electronic signature covers the nursing and ancillary testing orders for this visit. Author: Augustine Steel MD Tom Cuellar RN - 03/18/2012 1:29 AM CDT Pt showered. Tom Frdeerick RN - 03/18/2012 12:49 AM CDT Pt took 2 benadryl for a rash on her thighs before going to bed. Pt woke up with a rash around her waist,neck, chest, ears and back. Is itchy. Was treated for bed bugs a week ago. documented in this encounter Miscellaneous Notes Media - [facility], PROVIDER - 03/18/2012 12:00 AM CDT Media - External, Provider - 03/18/2012 12:00 AM CDT documented in this encounter Plan of Treatment Not on filedocumented as of this encounter Visit Diagnoses Diagnosis Urticaria Urticaria, unspecified documented in this encounter Care Teams Management Accounts Manager Relationship Specialty Start Date End Date No Primary/Referring, Phy PCP - General 02/26/12 documented as of this encounter
--- OUTSIDE RECORDS SUMMARY | 2022-08-31 22:22 | XMS_ITS | Encounter Summary ---
:1990 Author Organization [facility] Address [address] [place] [address] Care Team Providers Name Role Phone No Primary/Referring, Phy Primary Care Provider Unavailable Reason for Visit Reason Onset Date Comments Bumps 03/15/2013 Encounter Details Date Type Department Care Team Description 03/15/2013 Telephone Careline No Primary/Referring, Bumps [address] [place], [place] [address] Social History Tobacco Use Types Packs/Day Years Used Date Smoking Tobacco: Every Day Cigarettes 0.5 Alcohol Use Standard Drinks/Week Comments No 0 (1 standard drink = 0.6 oz pure alcoho l) Sex Assigned at Date Recorded Not on file documented as of this encounter Nursing Notes Umu Jacobs RN - 03/15/2013 9:05 PM CDT vinicio Gregory is a [facility] Registered Nurse returning your call. I am sorry I missed you. If you would still like to speak with a nurse, please call us back at [phone] and tell the human resources receptionist you are returning a missed call from the nurse. Thank you Umu Jacobs RN Arpita Monroe - 03/15/2013 7:52 PM CDT Which care system or clinic is the patient normally seen at?OTHER What would caller have done if unable to contact the CareLine?Self Care Situation:Bumps. Background:Patient states she has raised bumps near her vaginal opening. Plan:A nurse will return your call. If your symptoms change for the worse, please call us back [phone].. documented in this encounter Plan of Treatment Not on filedocumented as of this encounter Visit Diagnoses Not on filedocumented in this encounter Care Teams Hospital Recruiter Relationship Specialty Start Date End Date No Primary/Referring, Phy PCP - General 08/01/12 documented as of this encounter
--- OUTSIDE RECORDS SUMMARY | 2022-08-31 22:22 | XMS_ITS | Encounter Summary ---
:1990 Author Organization [facility] Address [address] [place] [address] Care Team Providers Name Role Phone Unavailable Primary Care Provider Unavailable Reason for Visit Reason Onset Date Comments QUESTIONS, GENERAL 05/12/2009 Encounter Details Date Type Department Care Team Description 05/12/2009 Telephone Careline Flores Wills RN QUESTIONS, GENERAL [address] [place], [place] [address] Social History Tobacco Use Types Packs/Day Years Used Date Smoking Tobacco: Every Day Cigarettes 0.5 Alcohol Use Standard Drinks/Week Comments No 0 (1 standard drink = 0.6 oz pure alcoho l) Sex Assigned at Date Recorded Not on file documented as of this encounter Nursing Notes Flores Wills - 05/12/2009 4:33 PM CDT Patient identified her self by full name, date of , medical identification number and/or health insurance number. Pt had D&C on 05/15/09. Pt is asking if she can take a bath, states that her discharge sheet states it is OK to bath; also wants to know if she can swim in a pool and have a few beers with a meal after she is finished with all her medication and pain meds. Advised OK to swim but no strenuous activity. When finished with meds may have beer. The patient indicates understanding of these issues and agrees with the plan. documented in this encounter Plan of Treatment Not on filedocumented as of this encounter Visit Diagnoses Not on filedocumented in this encounter
--- OUTSIDE RECORDS SUMMARY | 2022-08-31 22:22 | XMS_ITS | Encounter Summary ---
:1990 Author Organization [facility] Address [address] [place] [address] Care Team Providers Name Role Phone No Primary/Referring, Phy Primary Care Provider Unavailable Reason for Visit Procedure/Equipment (Routine) - Closed Specialty Diagnoses / Procedures Referred By Contact Refer red To Contact Procedures Emergency Department US PELVIS COMPLETE W [address] [facility] [place] [address] Referral ID Status Reason Start Date Expiration Date Visits Requ ested Visits Authorized [id number] Closed 06/01/2013 1 1 Encounter Details Date Type Department Care Team Description 06/01/2013 [facility] Ul trasound [address] [place] [address] Social History Tobacco Use Types Packs/Day Years [...] Diagnosis Comme nts US PELVIC COMPLETE STAT 06/01/2013 11:53 PM Re sults for this W EV CDT procedure are i n the results section. documented in this encounter Results US PELVIS COMPLETE W INTERNAL VAGINAL (06/01/2013 11:53 PM CDT) Anatomical Region Laterality Modality Pelvis Ultrasound Specimen (Source) Anatomical Collection Method Collection Time Re ceived Time Location / / Volume Laterality 06/01/2013 11:53 PM CDT Narrative 06/02/2013 12:13 AM CDT ULTRASOUND PELVIS COMPLETE WITH IVT Jun 01, 2013 11:53:21 PM INDICATION: Left pelvic pain. Spotting. TECHNIQUE: Transabdominal and endovagina l ultrasound. COMPARISON: None. FINDINGS: ?? Uterus measures 7.2 x 3.8 x 4.3 cm. ?? E ndometrial stripe 5 mm. IUD noted. ?? Right ovary measures 3. 2 x 2 x 2.8 cm. ??2.3 cm dominant follicle. ?? Left ovary measures 2.4 x 2.4 x 1.7 cm. ? Flow was documented to the ovaries. No a dnexal mass. Small amount of pelvic free fluid. CONCLUSION: 1. Small amount of pelvic free fluid. 2. IUD. 3. Otherwise unremarkable pelvic ultraso und. Procedure Note Rosie Abarca MD - 06/02/2013Forma tting of this note might be different from the original. ULTRASOUND PELVIS COMPLETE WITH IVT Jun 01, 2013 11:53:21 PM INDICATION: Left pelvic pain. Spotting. TECHNIQUE: Transabdominal and endovagina l ultrasound. COMPARISON: None. FINDINGS: Uterus measures 7.2 x 3.8 x 4.3 cm. Endo metrial stripe 5 mm. IUD noted. Right ovary measures 3. 2 x 2 x 2.8 cm. 2.3 cm dominant follicle. Left ovary measures 2.4 x 2.4 x 1.7 cm. Flow was documented to the ovaries. No a dnexal mass. Small amount of pelvic free fluid. CONCLUSION: 1. Small amount of pelvic free fluid. 2. IUD. 3. Otherwise unremarkable pelvic ultraso und. Manish Chris MD [facility] US documented in this encounter Visit Diagnoses Not on filedocumented in this encounter Care Teams Band Saw Marker Relationship Specialty Start Date End Date No Primary/Referring, Phy PCP - General 08/01/12 documented as of this encounter
--- OUTSIDE RECORDS SUMMARY | 2022-08-31 22:22 | XMS_ITS | Encounter Summary ---
:1990 Author Organization [facility] Address [address] [place] [address] Care Team Providers Name Role Phone Unavailable Primary Care Provider Unavailable Reason for Visit Reason Onset Date Comments CHEST PAIN 10/16/2006 Encounter Details Date Type Department Care Team Description 10/16/2006 Telephone Careline Kay Jackson RN CHEST PAIN [address] [place], [place] [address] [phone] [place] [address] Social History Tobacco Use Types Packs/Day Years Used Date Smoking Tobacco: Never Assessed Sex Assigned at Date Recorded Not on file documented as of this encounter Nursing Notes Kay Jackson - 10/16/2006 12:04 PM OIL BURNER Patient calls concerning herself. States she is having left chest pain for last 15 minutes. Pain started after eating breakfast. Pain worse with deep breathing. Pain radiates to left shoulder and upper abdomen. Hand is sweating. Denies SOB, vomiting, nausea, recent leg pain or swelling, recent trauma, recent cough, BC useage. Cough for last 3 days and is occasionally productive. Able to speak in complete sentances without evidence of breathlessness + stat symptoms per CNG chest pain guidelines, copyright (c) 2003 PMH: healthy MEDICATIONS: none ALLERGIES: none known PLAN: Discussed options with patient and advised to be seen. Patient will go to [facility] ER. Kay Jackson RN BURNER documented in this encounter Plan of Treatment Not on filedocumented as of this encounter Visit Diagnoses Not on filedocumented in this encounter
--- OUTSIDE RECORDS SUMMARY | 2022-08-31 22:22 | XMS_ITS | Encounter Summary ---
:1990 Author Organization [facility] Address [address] [place] [address] Care Team Providers Name Role Phone No Primary/Referring, Phy Primary Care Provider Unavailable Reason for Visit Procedure/Equipment (Routine) - Incomplete Specialty Diagnoses / Procedures Referred By Contact Refer red To Contact Procedures Tacos [place] MD CT ABDOMEN/PELVIS WITH IV [address] [place] [address] Referral ID Status Reason Start Date Expiration Date Visits V isits Requested Authorized [id number] Incomplete 12/31/2014 1 1 Encounter Details Date Type Department Care Team Description 12/31/[address] [place] [address] Social History Tobacco Use Types Packs/Day Years [...] Name Priority Date/Time Associated Diagnosis Comme nts CT ABD PELVIS W IV STAT 12/31/2014 6:01 PM Res ults for this CONT UPFITTER procedure are i n the results section. documented in this encounter Visit Diagnoses Not on filedocumented in this encounter Administered Medications Inactive Administered Medications - up to 3 most recent administrations Medication Order MAR Action Action Date Dose Rate Site iohexol (aka OMNIPAQUE) 300 MG/ML Given 12/31/2014 5:43 PM UPFITTER 1 25 mL injection 125 mL 125 mL, Intravenous, ONCE, On 12/31/14 at 1743, For 1 dose iohexol (aka OMNIPAQUE) 300 MG/ML injection 30 Given 0 12/31/2014 4:30 PM UPFITTER 30 mL mL 30 mL, Oral, ONCE (NON-SCHEDULED), Starting on Tue12/31/14 at 1742, Until Tue12/31/14 at 1630, For 1 dose documented in this encounter Care Teams Bliss Press Operator Relationship Specialty Start Date End Date No Primary/Referring, Phy PCP - General 08/01/12 documented as of this encounter
--- OUTSIDE RECORDS SUMMARY | 2022-08-31 22:22 | XMS_ITS | Clinical Summary ---
:1990 Author Organization [facility] Address [facility] [place] [address] Care Team Providers Name Role Phone Holland Thomas MD Primary Care Provider [phone] Amarilys Friedman PEDIATRIC DENTAL ASSISTANT Unavailable Allergies Active Allergy Reactions Severity Noted Date Comments Blood Transfusion Other (See Comments) High 05/20/2016 Song buenrostro has a history Related (Informational of a clinically Only) significant ant ibody against RBC ant igens. A delay in comp atible RBCs may occur. Morphine Unknown 08/26/2015 Nerve pain [place] 02/16/2012 Medications Medication Sig Dispensed Refills Start Date End Date Status ibuprofen Take 1 tablet 60 tablet 0 04/27/2018 Activ e (ADVIL/MOTRIN) 600 MG (600 mg) by mouth tabletIndications: 3 times daily Chronic midline low back pain without sciatica venlafaxine Take 1 tablet (75 30 each 1 04/28/2018 Active (EFFEXOR-ER) 75 MG TB24 mg) by mouth 24 hr daily tabletIndications: Depression with anxiety tiZANidine (ZANAFLEX) 2 Take 1 tablet (2 14 tablet 0 8 Active MG tabletIndications: mg) by mouth Chronic midline low every 6 hours as back pain without needed for muscle sciatica spasms Active Problems Problem Noted Date Chronic midline low back pain without sciatica 018 Cannabis use disorder, moderate, dependence 04/26/2018 Suicidal ideation 04/26/2018 Suicidal ideations 04/25/2018 Warm reactive antibody 07/23/2016 Overview: Overview: Overview: Initial Ab screen pos for unidentified A b; recommend repeat Ab screen later in - antibody+ for warm auto antibody, [place] negative and E negative (per blood bank, no risk to baby, only important if she needs a blood transfusion). Repeat antibody screen at 28 week visi t History of laparoscopy 07/23/2016 Overview: Overview: 03/2010 for endometriosis, Also on 2014 had Laser co2 laparoscopic vaporization andometrium with combined D&C, operative hysteroscopy (IUD strings up in uterus, and cleared out endometriosis) - OB has cleared for vaginal , Req uested Op report. LOBITO 07/23 Depression with anxiety 09/03/2015 Overview: Was on buspar. Off for CARDIOVASCULAR SCREENING; LDL GOAL LESS THAN 160 09/20 Resolved Problems Problem Noted Date Resolved Date care, subsequent 11/15/201604/2018 Antepartum placenta previa without hemorrhage in second 05/201610/10/2016 trimester Overview: Placental edge 1.7cm from cervical os, r eevaluate at 28-30 weeks of Encounter for supervision of other normal 07/23/20 16 07/23/2016 Chronic migraine without aura without status migrainosus, no t 10/14/2015 11/15/2016 intractable Suicidal ideation 07/27/2015 11/15/2016 Supervision of normal first 05/02/2012 Overview: Initial Ab screen pos for unidentified A b; recommend repeat Ab screen later in -NEEDS TO BE DISCUSSED WITH PT AT HER NEXT VISIT Other specified aftercare following surgery 05/07/2010 05/03/2012 Abnormal uterine bleeding 04/09/2010 05/07/2010 Female pelvic pain 04/09/2010 05/07/2010 Overview: (Problem list name updated by automated process. Provider to review and confirm.) ASCUS on Pap smear 03/09/2009 11/15/2016 Overview: 03/03/09:pap--ASCUS. + HR HPV 31,52. Per ASCCP guidelines, disregard HPV when <21 yrs of age and repeat pap in 1 year. 05/03/12: Pap - LSIL. Plan colp. Pt is pr egnant. 07/10/12: Pt transferred care. Pap tracki ng file closed. Abdominal cramps 02/17/2009 04/18/2009 Overview: On since 02/09 On zofra form [facility]. Immunizations Name Administration Dates Next Due Influenza (IIV3) PF 10/02/2003 Influenza Vaccine IM > 6 months Valent IIV4 08/27/2016 (Alfuria,Fluzone) MMR 01/24/2001 Td (Adult), Adsorbed 01/24/2001 Tdap (Adacel,Boostrix) 10/25/2016 Family History Medical History Relation Comments Alcohol/Drug Father drugs Cerebrovascular Disease Father Early Father Alcoholism Maternal Aunt Hypertension Maternal Aunt Kidney Disease Maternal Aunt Substance Abuse Maternal Aunt Dementia Maternal Grandfather Hypertension Maternal Grandfather Arthritis Maternal Grandmother Hearing Loss Maternal Grandmother Heart Disease Maternal Grandmother Alcohol/Drug Mother meth Arthritis Mother Depression Mother Mental Illness Mother Substance Abuse Mother Arthritis Paternal Grandfather Asthma Paternal Grandfather Blood Disease Paternal Grandfather anemia Cancer Paternal Grandfather Cerebrovascular Disease Paternal Grandfather Depression Paternal Grandfather Hearing Loss Paternal Grandfather Diabetes Paternal Grandmother Hypertension Paternal Grandmother Cerebrovascular Disease Paternal Uncle Early Paternal Uncle Mental Illness Sister 2 ADHD and anger issue s Relation Status Comments Father multiple untreatable aneurysms Maternal Aunt Alive Maternal Grandfather Maternal Grandmother Alive Mother Alive patient does not hav e much of a relationship with her Paternal Grandfather from heart att ack Paternal Grandmother from Type II d iabetes Paternal Uncle Sister 1 Alive Sister 2 Alive Social History Tobacco Use Types Packs/Day Years Used Date Smoking Tobacco: Former Cigarettes 0.1 Quit : 03/14/2019 Smokeless Tobacco: Never Tobacco Cessation: Ready to Quit: No; Co unseling Given: Yes Comments: smoking 10cig/day- down to 1-2 with Alcohol Use Standard Drinks/Week Comments Yes 0 (1 standard drink = 0.6 oz pure alcoho l) 3 times a month Sex Assigned at Date Recorded Not on file Last Filed Vital Signs Vital Sign Reading Time Taken Comments Blood Pressure 112/70 04/22/2022 5:24 PM CDT Pulse 80 04/22/2022 5:24 PM CDT Temperature 37.2 ??C (98.9 ??F) 04/22/2022 12:53 PM CDT Respiratory Rate 16 04/22/2022 5:24 PM CDT Oxygen Saturation 97% 04/22/2022 5:24 PM CDT Inhaled Oxygen Concentration - - Weight 59.9 kg (132 lb) 04/22/2022 12:53 PM CDT Height 170.2 cm (5' 7) 04/22/2022 12:53 PM CDT Body Mass Index 20.67 04/22/2022 12:53 PM CDT Plan of Treatment Health Maintenance Due Date Last Done Comments ADVANCE CARE PLANNING 1990 ANNUAL REVIEW OF HM ORDERS 1990 HEPATITIS B IMMUNIZATION (1 1990 of 3 - 3-dose series) MIGRAINE ACTION PLAN 1990 YEARLY PREVENTIVE VISIT 10/28/2016 10/28/2015 PAP 10/28/2018 10/28/2015, 10/28/2015, 10/28/2015, Additional history exists COVID-19 Vaccine (3 - 05/29/2021 04/03/2021, 03/13/2021 Booster for Pfizer series) PHQ-2 (once per calendar 11/21/2021 12/13/2019, 12/02/2015, year) 10/28/2015, Additional history exists INFLUENZA VACCINE (#1) 2022 08/27/2016, 10/02/2003 DTAP/TDAP/TD IMMUNIZATION 10/25/2026 10/25/2016, 01/24/2001 (3 - Td or Tdap) HEPATITIS C SCREENING Completed 10/01/2016 HIV SCREENING Completed 11/18/2016, 10/01/2016, 05/03/2012, Additional history exists IPV IMMUNIZATION Aged Out No longer eligi ble based on patient 's age to complete this topic MENINGITIS IMMUNIZATION Aged Out No longe r eligible based on patient 's age to complete this topic Pneumococcal Vaccine: Aged Out No longer eligible Pediatrics (0 to 5 Years) based on patient's age and At-Risk Patients (6 to to co mplete this topic 64 Years) Insurance Payer Benefit Plan / Subscriber ID Effective Phone Address T ype Group Dates [place] [id number] 2012-Prese [phone] [address] [place] [address] [place] [id number] Keyla Porter Personal/Family Self [address] (Home) [place] [id number] Keyla Porter Behavioral Self 1990 [address] (Home) [place] [address] Advance Directives For more information, please contact: [phone] Latest Code Status on File Code Status Date Activated Date Inactivated Comments Full Code 04/25/2018 6:19 PM 04/27/2018 6:42 PM Code Status History Code Status Date Activated Date Inactivated Comments Full Code 07/27/2015 5:15 PM 08/04/2015 5:44 PM Care Teams Business Architect Relationship Specialty Start Date End Date Holland Thomas MD PCP - General over the road driver 04/15/20 [address] [place] [address] Amarilys Friedman, PEDIATRIC DENTAL ASSISTANT Assigned PCP 06/05/21 [address] [place] [address]
--- OUTSIDE RECORDS SUMMARY | 2022-08-31 22:22 | XMS_ITS | Encounter Summary ---
:1990 Author Organization [facility] Address [address] [place] [address] Care Team Providers Name Role Phone Unavailable Primary Care Provider Unavailable Encounter Details Date Type Department Care Team Description 06/02/2006 Correspondence Emergency Dept Emergency, [facility] D/C PATIENT [address] [facility] Provider ACKNOWLEDGEMENT [place] [address] Social History Tobacco Use Types Packs/Day Years Used Date Smoking Tobacco: Never Assessed Sex Assigned at Date Recorded Not on file documented as of this encounter Progress Notes Emergency, Provider - 06/02/2006 12:00 AM CDT documented in this encounter Plan of Treatment Not on filedocumented as of this encounter Visit Diagnoses Not on filedocumented in this encounter
--- OUTSIDE RECORDS SUMMARY | 2022-08-31 22:22 | XMS_ITS | Encounter Summary ---
:1990 Author Organization [facility] Address [address] [place] [address] Care Team Providers Name Role Phone Holland Thomas MD Primary Care Provider [phone] Amarilys Friedman CARPENTER MAINTENANCE Unavailable Encounter Details Date Type Department Care Team Description 04/22/2022 Travel Social History Tobacco Use Types Packs/Day Years Used Date Smoking Tobacco: Former Cigarettes 0.1 Quit : 03/14/2019 Smokeless Tobacco: Never Comments: smoking 10cig/day- down to 1-2 with Alcohol Use Standard Drinks/Week Comments Yes 0 (1 standard drink = 0.6 oz pure alcoho l) 3 times a month Sex Assigned at Date Recorded Not on file COVID-19 Exposure Response Date Recorded In the last 10 days, have you been in contact with Yes 04/22/2022 12:40 PM CDT someone who was confirmed or suspected to have Coronavirus/COVID-19? documented as of this encounter Plan of Treatment Not on filedocumented as of this encounter Visit Diagnoses Not on filedocumented in this encounter Additional Health Concerns Assessment Noted Time PHQ-9 Depression Total Score: 19 09/04/2015 7:20 AM CD T documented as of this encounter Care Teams Maintenance Inspector Relationship Specialty Start Date End Date Holland Thomas MD PCP - General cow trimmer 04/15/20 [address] [place] [address] Amarilys Friedman, CARPENTER MAINTENANCE Assigned PCP 06/05/21 [address] [place], [place] [id number] documented as of this encounter
--- OUTSIDE RECORDS SUMMARY | 2022-08-31 22:22 | XMS_ITS | Encounter Summary ---
:1990 Author Organization [facility] Address [address] [place] [address] Care Team Providers Name Role Phone No Primary/Referring, Phy Primary Care Provider Unavailable Reason for Visit Procedure/Equipment (Routine) - Incomplete Specialty Diagnoses / Procedures Referred By Contact Refer red To Contact Procedures Tacos Hall MD CT ANGIOGRAPHY HEAD (includes [address] head w/o contrast) [place], [place] [address] Referral ID Status Reason Start Date Expiration Date Visits V isits Requested Authorized [id number] Incomplete 08/24/2015 1 1 Encounter Details Date Type Department Care Team Description 08/24/[address] [place] [address] Social History Tobacco Use Types Packs/Day Years [...] Priority Date/Time Associated Diagnosis Comme nts CT ANGIO HEAD W/WO STAT 08/24/2015 11:00 PM Re sults for this IV CONT CDT procedure are i n the results section. documented in this encounter Visit Diagnoses Not on filedocumented in this encounter Administered Medications Inactive Administered Medications - up to 3 most recent administrations Medication Order MAR Action Action Date Dose Rate Site iohexol (aka OMNIPAQUE) 350 MG/ML Given 08/24/2015 11:03 PM CDT 100 mL injection 100 mL 100 mL, Intravenous, ONCE, On 08/24/15 at 2303, For 1 dose documented in this encounter Care Teams Supervisor Rod Placing Relationship Specialty Start Date End Date No Primary/Referring, Phy PCP - General 08/01/12 documented as of this encounter
--- OUTSIDE RECORDS SUMMARY | 2022-08-31 22:22 | XMS_ITS | Encounter Summary ---
:1990 Author Organization [facility] Address [address] [place] [address] Care Team Providers Name Role Phone Unavailable Primary Care Provider Unavailable Reason for Visit Reason Comments Test Results Encounter Details Date Type Department Care Team Description 06/04/2010 Routine [facility] [place] Pre gnancy Test Results Obstetrics and Gynecology [address] [place], [place] [address] Social History Tobacco Use Types Packs/Day Years Used Date Smoking Tobacco: Every Day Cigarettes 0.5 Alcohol Use Standard Drinks/Week Comments No 0 (1 standard drink = 0.6 oz pure alcoho l) Sex Assigned at Date Recorded Not on file documented as of this encounter Progress Notes Piper Alcantara - 06/04/2010 4:46 PM CDT Keyla Porter had a negative test on 06-04-10. LMP was 6-21-10. Patient suspects she may be because she is nauseated. Patient states that she has history of endometriosis. Advised patient to try gatorade to help with the nausea as she might be dehydrated from the weather conditions at the present time. Usual cycle length is irregular. Are you attempting ? If No: What is your current method of control? Nothing at present time. Later stated that she doesn't care if she gets , if it happens it happens. Advised patient Set up an appointment for consult with MD if she has no period in a few weeks, next period should be about 7-21-10, if cycle is 30 days. Piper Alcantara LPN 4:27 PM 06/04/2010 documented in this encounter Plan of Treatment Not on filedocumented as of this encounter Procedures Procedure Name Priority Date/Time Associated Diagnosis Comme nts TEST Waiting 06/04/2010 3:55 PM Results for this (URINE) CDT Examination or Test, procedu re are in the results Unconfirmed section. documented in this encounter Results test urine future one month (06/04/2010 3:55 PM CDT) Component Value Ref Test Analysis Performed At [facility] Range Method Time Signature HCG, Urine Negative [facility] Negative = <25 mIU/ml If is suspected, suggest repeat in 48-72 hours or confirm results with a quantitative hCG test. Specimen Anatomical Collection Method Collection Time Receive d Time (Source) Location / / Volume Laterality Urine specimen 06/04/2010 3:55 PM 010 3:57 (specimen) CDT PM CDT Kenia Galvan MD LAB_1 Performing Organization Address City/State/ZIP Code Phon e Number [facility] [phone] [address] documented in this encounter Visit Diagnoses Diagnosis examination or test, unconfirmed - Primary documented in this encounter
--- OUTSIDE RECORDS SUMMARY | 2022-08-31 22:22 | XMS_ITS | Encounter Summary ---
:1990 Author Organization [facility] Address [address] [place] [address] Care Team Providers Name Role Phone Unavailable Primary Care Provider Unavailable Reason for Visit Reason Onset Date Comments Other 05/07/2009 Encounter Details Date Type Department Care Team Description 05/07/2009 Telephone OBSTETRICS AND GYNECOLOGY Lyndsey Luis MD Other IP SERVICE [address] [facility] [address] [place] [address] [place] [address] [phone] (Wo rk) Social History Tobacco Use Types Packs/Day Years Used Date Smoking Tobacco: Every Day Cigarettes 0.5 Alcohol Use Standard Drinks/Week Comments No 0 (1 standard drink = 0.6 oz pure alcoho l) Sex Assigned at Date Recorded Not on file documented as of this encounter Nursing Notes Lyndsey Wu - 05/07/2009 4:27 PM CDT Received call from patient stating she is having intense pain, cramping, nausea. She had recently taken 1 tylenol with codeine and ibuprofen 600mg. Temp 99.3. She is counseled that these symptoms are normal and to be expected. She is instructed to take another T3 tablet now and place warm pack on her abdomen. She also has nause medicine which she is instructed to take. If the above do not make her somewhat more comfortable, she is instructed to proceed to the ER for additional evaluation. Lyndsey Wu MD 05/07/2009 4:27 PM documented in this encounter Plan of Treatment Not on filedocumented as of this encounter Visit Diagnoses Not on filedocumented in this encounter
--- OUTSIDE RECORDS SUMMARY | 2022-08-31 22:22 | XMS_ITS | Encounter Summary ---
:1990 Author Organization [facility] Address [address] [place] [address] Care Team Providers Name Role Phone No Primary/Referring, Phy Primary Care Provider Unavailable Reason for Referral Procedure/Equipment (Routine) - Closed Specialty Diagnoses / Procedures Referred By Contact Refer red To Contact Procedures Emergency Department US PELVIS COMPLETE W [address] [facility] [place] [address] Referral ID Status Reason Start Date Expiration Date Visits Requ ested Visits Authorized [id number] Closed 06/01/2013 1 1 Reason for Visit Reason Comments VAGINAL DISCOMFORT--ED has Nurina IUD Encounter Details Date Type Department Care Team Description 06/01/2013 - Emergency [facility] Emergency Dept Manish Chris, Abdominal pain (Primary Dx); 06/02/2013 640 Harley Jeffries MD Abdominal pain, left lower quadrant; [place] [address] [address] [facility] Other specified noninflammatory disorder of vagina [phone] [place], [place] [id number] Social History Tobacco Use Types Packs/Day Years Used Date Smoking Tobacco: Every Day Cigarettes 0.5 Alcohol Use Standard Drinks/Week Comments Yes 0 (1 standard drink = 0.6 oz pure alcoho l) social Sex Assigned at Date Recorded Not on file documented as of this encounter Last Filed Vital Signs Vital Sign Reading Time Taken Comments Blood Pressure 99/48 06/01/2013 11:53 PM CDT Pulse 64 06/01/2013 11:53 PM CDT Temperature 36.9 ??C (98.4 ??F) 06/01/2013 9:29 PM CDT Respiratory Rate 16 06/01/2013 11:53 PM CDT Oxygen Saturation 100% 06/01/2013 11:53 PM CDT Inhaled Oxygen Concentration - - Weight - - Height - - Body Mass Index - - documented in this encounter Discharge Instructions Discharge InstructionsGeno Ramirez PA-C - 06/02/2013 12:43 AM CDT Images from the original note were not included. Please follow up with your primary care provider if your symptoms don't improve. Please return to the emergency room if your symptoms worsen. . Abdominal Pain: After Your Visit Your Care Instructions Abdominal pain has many possible causes. Some aren't serious and get better on their own in a few days. Others need more testing and treatment. If your pain continues or gets worse, you need to be rechecked and may need more tests to find out what is wrong. You may need surgery to correct the problem. Don't ignore new symptoms, such as fever, nausea and vomiting, urination problems, pain that gets worse, and dizziness. These may be signs of a more serious problem. Your doctor may have recommended a follow-up visit in the next 8 to 12 hours. If you are not gettingbetter, you may need more tests or treatment. The doctor has checked you carefully, but [...] you care for yourself at home? ?? Rest until you feel better. ?? To prevent dehydration, drink plenty of fluids, enough so that your urine is light yellow or clear like water. Choose water and other caffeine-free clear liquids until you feel better. If you have kidney, heart, or liver disease and have to limit fluids, talk with your doctor before you increase the amount of fluids you drink. ?? If your stomach is upset, eat mild foods, such as rice, dry toast or crackers, bananas, and applesauce. Try eating several small meals instead of two or three large ones. ?? Wait until 48 hours after all symptoms have gone away before you have spicy foods, alcohol, and drinks that contain caffeine. ?? Do not eat foods that are high in fat. ?? Avoid anti-inflammatory medicines such as aspirin, ibuprofen (Advil, Motrin), and naproxen (Aleve). These can cause stomach upset. Talk to your doctor if you take daily aspirin for another health problem. When should you call for help? Call 911 anytime you think you may need emergency care. For example, call if: ?? You passed out (lost consciousness). ?? You pass maroon or very bloody stools. ?? You vomit blood or what looks like coffee grounds. ?? You have new, severe belly pain. Call your doctor now or seek immediate medical care if: ?? Your pain gets worse, especially if it becomes focused in one area of your belly. ?? You have a new or higher fever. ?? Your stools are black and look like tar, or they have streaks of blood. ?? You have unexpected vaginal bleeding. ?? You have symptoms of a urinary tract infection. These may include: ?? Pain when you urinate. ?? Urinating more often than usual. ?? Blood in your urine. ?? You are dizzy or lightheaded, or you feel like you may faint. Watch closely for changes in your health, and be sure to contact your doctor if: ?? You are not getting better after 1 day (24 hours). Where can you learn more? Go to [employer] and enter E907 in the search box. Last Revised: March 13, 2012 ?? [id number] [email or web address], [email or web address]. documented in this encounter ED Notes Lluvia Doss RN - 06/02/2013 12:47 AM CDT [facility] ED Nursing Discharge Note Vital Signs: BP: 99/48 mmHg Temp: 98.4 ??F (36.9 ??C)Temp src: Oral Pulse: 64 Resp: 16 SpO2: 100 % Pain Scale (0-10): 8 Admission Date/Time: 06/01/2013 9:54 PM Attending MD: Manish Chris Patient discharged: to Home. Patient accompanied by: friend. Transported by: Walked Valuables were taken home by patient: Yes Work/School Slip given: No Discharge instructions given and explained to patient: Yes Discharge prescriptions given and explained to patient: No Patient verbalized understanding. Yes Patient level of pain on discharge: 6 Patients condition on discharge related to chief complaint and treatment in ED: Pt discharged to home in stable condition. States clear understanding of discharge instructions. ---End of Report--- Manish Chris MD - 06/02/2013 12:14 AM CDT [facility] Emergency Department Attending Supervision Note MRALA care under my supervision. Lluvia Doss RN - 06/02/2013 12:06 AM CDT Patient complaining of increased pain. Provider notified and new order obtained. Patient medicated as ordered. Will continue to monitor. T Lluvia Doss RN - 06/01/2013 11:26 PM CDT Patient at Geno Ramirez PA-C - 06/01/2013 10:21 PM CDT [facility] Emergency Department Visit Note Chief Complaint: VAGINAL DISCOMFORT--ED History of Present Illness HPI Initial examination started at 10:21 PM Keyla Porter is a 22 yr old female who presents to the Emergency Department for evaluation of vaginal bleeding. The patient had a Mirena IUD place in December of this year. She has not had menses since that time. She noted onset of brown spotting per vagina approximately 1 week ago. Upon wakingthis morning the patient noted onset of bright red vaginal bleeding. This is intermittent in nature. She reports associated left pelvic pain described as constant throbbing and like someone's trying to stab their way out. She also reports associated intermittent nausea, vomiting, dizziness, but denies any fever, chills, jasmine chest pain. She does not note any similar symptoms to her prior . Concerned her IUD has moved. History obtained from the patient. Previous Medications No medications on file Allergies: Food and Morphine sulfate There is no problem list on file for this patient. Past Medical History Diagnosis Date ??? Archer ??? UTI ??? Endometriosis ??? Heart murmur ??? UTI (lower urinary tract infection) ??? Pyelonephritis Past Surgical History Procedure Laterality Date ??? Laparoscopy procedure endometriosis History Substance Use Topics ??? Smoking status: Current Every Day Smoker -- 0.50 packs/day Types: Cigarettes ??? Smokeless tobacco: Not on file ??? Alcohol Use: Yes social Review of Systems Constitutional: Negative for fever, chills and activity change. Gastrointestinal: Positive for nausea, vomiting and abdominal pain. Negative for diarrhea and constipation. Genitourinary: Positive for vaginal bleeding (initially brown, now bright red) and pelvic pain (left). Skin: Negative for color change. Neurological: Positive for dizziness. All other systems reviewed and are negative. Physical Exam Vital signs: BP 121/78 Pulse 74 Temp(Src) 98.4 ??F (36.9 ??C) (Oral) Resp 16 SpO2 97% Physical Exam Nursing note and vitals reviewed. Constitutional: She is oriented to person, place, and time. She appears well- developed and well-nourished. No distress. HENT: Head: Normocephalic and atraumatic. Mouth/Throat: Oropharynx is clear and moist. Eyes: Conjunctivae are normal. No scleral icterus. Neck: Normal range of motion. Neck supple. Cardiovascular: Normal rate and regular rhythm. Pulmonary/Chest: Effort normal and breath sounds normal. No respiratory distress. She has no wheezes. She has no rales. Abdominal: Soft. Normal appearance and bowel sounds are normal. There is tenderness in the left lower quadrant. There is no rebound, no guarding and no tenderness at McBurney's point. Genitourinary: Normal external genitalia without erythema or lesions. No vaginal discharge. No cervical motion tenderness. Cervical os is closed. Left adnexal tenderness to palpation. No right adnexal tenderness to palpation. No adnexal masses palpated. Small amount of blood in the vaginal vault. Musculoskeletal: Normal range of motion. She exhibits no edema. Neurological: She is alert and oriented to person, place, and time. She has normal strength. No sensory deficit. Skin: Skin is warm and dry. No rash noted. No erythema. Medical Decision Making & ED Course ED Course: 10:30 PM Will obtain a UPT to evaluate for and perform a pelvic examination to evaluate for tenderness and other abnormalities. Analgesia and antiemetics were offered and declined at this time. 10:47 PM UPT is negative. Will obtain pelvis US to evaluate for pelvic abnormalities such as ovariancyst and ovarian torsion. Will also obtain CBC to evaluate for anemia. 12:00 AM Per nurse patient is having increased pain and is requesting an analgesic. Will administer ibuprofen. Interventions: 12:06 AM Ibuprofen 800mg PO administered Laboratory and Radiologic Findings: UPT is negative. CBC reveals an erythrocytosis of 3.95 a decreased hematocrit at 35.0, otherwise within normal limits. US of the pelvis reveals a small amount of free fluid and an IUD, but no other abnormalities. MDM: This is a 22 yr female who presents to ED for evaluation of vaginal bleeding. No etiology was found for the patient's symptoms, however no worrisome signs for acute abdomen were appreciated either. I discussed the possibility of more intense cramping and bleeding secondary to IUD placement. Also discussed possibility of nephrolithiasis with the patient, although this is unlikely. We will not pursue further work up for this at this time. The patient will be discharged home. She will take ibuprofen asneeded for pain. She will follow up with her PCP or project drilling engineer as needed. Reasons to return to theED were discussed with the patient. The patient understood and agreed with the plan of care. She left the department in stable condition. Diagnosis & Disposition Diagnosis: 1. Abdominal pain This document serves as a record of services personally performed by Geno Ramirez PA-C. It was created on their behalf by [place], a trained medical examiner. The creation of this record is based onthe scribe's personal observations and the provider's statements to them. The document has been check ed and approved by the attending provider. Lluvia Doss RN - 06/01/2013 10:20 PM CDT Provider at bedside. Lluvia Doss RN - 06/01/2013 10:01 PM CDT Agree with triage note. Patient is concerned that her IUD has shifted. Vaginal bleeding started thismorning. Patient reports she was bleeding most of the day. Stated not currently. + nausea, vomiting.Suprapubic abdomen pain- more on L side. Denies urinary symptoms, chest pain, shortness of breath. Flakita Jacobo RN - 06/01/2013 9:32 PM CDT Pt had Murina IUD placed 01/03, has not menses since but then began brown vaginal spotting x3 weeks ago, this am pt began to have increased pelvic pain and bright red vaginal bleeding, nausea, denies fevers. documented in this encounter Miscellaneous Notes Media - [facility], PROVIDER - 06/01/2013 12:00 AM CDT documented in this encounter Plan of Treatment Not on filedocumented as of this encounter Procedures Procedure Name Priority Date/Time Associated Diagnosis Comme nts US PELVIC COMPLETE STAT 06/01/2013 11:53 PM Re sults for this W EV CDT procedure are i n the results section. GOLD HOLD TUBE (OR Routine 06/01/2013 11:17 PM Re sults for this RED/FARR) CDT procedure are i n the results section. LIGHT GREEN HOLD Routine 06/01/2013 11:17 PM Resu lts for this TUBE CDT procedure are i n the results section. COMPLETE BLOOD STAT 06/01/2013 11:17 PM Result s for this COUNT-NO DIFF CDT procedure are in the results section. STAT 06/01/2013 10:30 PM Results for this TEST(URINE),POINT CDT procedure are in OF CARE the results section. documented in this encounter [...] unremarkable pelvic ultraso und. Manish Chris MD RAD US LIGHT GREEN HOLD TUBE (06/01/2013 11:17 PM CDT) [facility] Method Time Signature Light Green Held in [facility] Hold Tub Chemistry HOSPITAL sample rack for 7 days Specimen Anatomical Collection Method Collection Time Receive d Time (Source) Location / / Volume Laterality 06/01/2013 11:17 06/01/2013 PM CDT 11:23 PM CDT Narrative [facility] - 06/01/2013 11:25 PM C DT Performed at [facility] , [address] [place] [id number] Manish Chris MD LAB_1 Performing Organization Address City/[facility] Phon e Number [address] [address] GOLD HOLD TUBE (OR RED/FARR) (06/01/2013 11:17 PM CDT) [facility] Method Time Signature Gold Hold Held in [facility] Tube Chemistry HOSPITAL sample rack for 7 days Specimen Anatomical Collection Method Collection Time Receive d Time (Source) Location / / Volume Laterality 06/01/2013 11:17 06/01/2013 PM CDT 11:23 PM CDT [facility] - 06/01/2013 11:25 PM C DT Performed at [facility] , [address] [place] [id number] Manish Chris MD LAB_1 Performing Organization Address City/[facility] Phon e Number [address] [address] (ABNORMAL) HEMOGRAM/PLTS (06/01/2013 11:17 PM CDT) athologist Signature WBC 4.5 4.0 - 11.0 [facility] k/ul HOSPITAL RBC 3.95 (L) 4.0 - 5.2 [facility] M/ul HOSPITAL Hemoglobin 12.0 12.0 - 16.0 [facility] g/dl HOSPITAL HCT 35.0 (L) 36.0 - 46.0 [facility] MCV 88.6 80 - 100 fl [facility] MCH 30.4 26 - 34 pg [facility] MCHC 34.3 32 - 36 [facility] g/dl HOSPITAL RDW 13.5 11.5 - 14.5 [facility] % [facility]OSPITAL Platelets 195 150 - 450 [facility] k/ HOSPITAL MPV 9.8 9.4 - 12.4 [facility] Specimen Anatomical Collection Method Collection Time Receive d Time (Source) Location / / Volume Laterality 06/01/2013 11:17 06/01/2013 PM CDT 11:23 PM CDT [facility] - 06/01/2013 11:44 PM C DT Performed at [facility] , [address] [place] [id number] Manish Chris MD LAB_1 Performing Organization Address [facility] Phon e Number [address] [address] TEST(URINE),POINT OF CARE (06/01/2013 10:30 PM CDT) [facility] Method Time Signature HCG, Urine Negative [facility] Negative = <25 mIU/ml HOSPITAL If is suspected, suggest repeat in 48-72 hours or confirm results with a quantitative hCG test. Specimen Anatomical Collection Method Collection Time Receive d Time (Source) Location / / Volume Laterality Urine specimen 06/01/2013 10:30 3 1:15 (specimen) PM CDT PM CDT [facility] - 06/02/2013 1:16 PM CD T Performed at [facility] , [address] [place] [id number] Manish Chris MD LAB_1 Performing Organization Address [facility] Phon e Number [address] [address] documented in this encounter Visit Diagnoses Diagnosis Abdominal pain - Primary Abdominal pain, left lower quadrant Other specified noninflammatory disorder of vagina documented in this encounter Administered Medications Inactive Administered Medications - up to 3 most recent administrations Medication Order MAR Action Action Date Dose Rate Site ibuprofen (aka MOTRIN) tablet 800 Given 06/02/2013 12:06 AM CDT 800 mg mg 800 mg, Oral, ONCE, On 06/02/13 at 0002, For 1 dose, Give with food or milk. documented in this encounter Active and Recently Administered Medications Times are shown in CDT. Scheduled Medication Order 05/31/2013 06/01/2013 06/02/2013 ibuprofen (aka MOTRIN) tablet 800 mg (COMPLETED) 0006 (Given - Provider: Lluvia Doss RN) 800 mg, Oral, ONCE, On 06/02/13 at 0002, For 1 dose , Give with food or milk. documented in this encounter Care Teams Radiotelephone Operator Relationship Specialty Start Date End Date No Primary/Referring, Phy PCP - General 08/01/12 documented as of this encounter
--- OUTSIDE RECORDS SUMMARY | 2022-08-31 22:22 | XMS_ITS | Encounter Summary ---
:1990 Author Organization [facility] Address [address] [place] [address] Care Team Providers Name Role Phone No Primary/Referring, Phy Primary Care Provider Unavailable Encounter Details Date Type Department Care Team Description 03/18/2012 Emergency [facility] Emergency Dept Augustine Steel MD ERRONEOUS ENTRY [address] [address] [place] [address] [phone] (Wo rk) Social History Tobacco Use Types [...] tablet daily. documented as of this encounter Plan of Treatment Not on filedocumented as of this encounter Visit Diagnoses Diagnosis ERRONEOUS ENTRY documented in this encounter Care Teams Enrollment Clerk Relationship Specialty Start Date End Date No Primary/Referring, Phy PCP - General 02/26/12 documented as of this encounter
--- OUTSIDE RECORDS SUMMARY | 2022-08-31 22:22 | XMS_ITS | Encounter Summary ---
:1990 Author Organization [facility] Address [address] [place] [address] Care Team Providers Name Role Phone Unavailable Primary Care Provider Unavailable Encounter Details Date Type Department Care Team Description 04/25/2011 - 05/04/2011 Emergency [facility] Emergency Dep [address] [id number] Social History Tobacco Use Types Packs/Day Years [...] mouth daily. documented as of this encounter Plan of Treatment Not on filedocumented as of this encounter Visit Diagnoses Not on filedocumented in this encounter
--- OUTSIDE RECORDS SUMMARY | 2022-08-31 22:22 | XMS_ITS | Encounter Summary ---
:1990 Author Organization [email or web address] Address [address] [place] [address] Care Team Providers Name Role Phone No Primary/Referring, Phy Primary Care Provider Unavailable Reason for Referral Procedure/Equipment (Routine) - Incomplete Specialty Diagnoses / Procedures Referred By Contact Refer red To Contact Procedures Tacos Mathias MD CT ABDOMEN/PELVIS WITH IV [address] [place] [address] Referral ID Status Reason Start Date Expiration Date Visits V isits Requested Authorized [id number] Incomplete 12/31/2014 1 1 NG ASSEMBLER SUPERVISOR Procedure/Equipment (Routine) - Incomplete Specialty Diagnoses / Procedures Referred By Contact Refer red To Contact Procedures Tacos Mathias MD US PELVIS COMPLETE W INTERNAL [address] [place] [address] Referral ID Status Reason Start Date Expiration Date Visits V isits Requested Authorized [id number] Incomplete 12/31/2014 1 1 NG ASSEMBLER SUPERVISOR Reason for Visit Reason Comments ABDOMINAL PAIN--ED Encounter Details Date Type Department Care Team Description 12/31/2014 Emergency [facility] Emergency [facility] Tacos Mathias MD [address] [place] [address] BV (bacterial vaginosis) (Primary Dx); [address] [facility] Abdominal pain, unspecified site; [place] [address] Abdominal pain, right lower quadrant; [phone] Vomiting alone; Personal histor y of allergy to sulfonamides Social History Tobacco Use Types Packs/Day Years Used Date Smoking Tobacco: Every Day Cigarettes 0.5 Alcohol Use Standard Drinks/Week Comments Yes 0 (1 standard drink = 0.6 oz pure alcoho l) social Sex Assigned at Date Recorded Not on file documented as of this encounter Last Filed Vital Signs Vital Sign Reading Time Taken Comments Blood Pressure 108/69 12/31/2014 7:23 PM SPRING [employer] SUPERVISOR Pulse 75 12/31/2014 7:23 PM SPRING [employer]SEM[employer] SUPERVISOR Temperature 36.8 ??C (98.3 ??F) 12/31/2014 7:23 PM [employer]ING [employer] SUPERVISOR Respiratory Rate 18 12/31/2014 7:23 PM [employer]ING [employer]ER SUPERVISOR Oxygen Saturation 99% 12/31/2014 7:23 PM SPRING [employer]ER SUPERVISOR Inhaled Oxygen Concentration - - Weight - - Height - - Body Mass Index - - documented in this encounter Discharge Instructions Discharge InstructionsPadmini Guzman MD - 12/31/2014 7:25 PM CST Images from the original note were not included. Please follow up with your primary care provider or glass block bender in the next few days. Please return to the emergency room if you have increased bleeding, pain, nausea or vomiting or any other concerns. Abdominal Pain: After Your Visit to the Emergency Room Your Care Instructions Many abdominal problems can cause belly pain. Some are not serious and get better on their own in a few days. Other abdominal problems need more testing and emergency treatment. Your doctor may have recommended a follow-up visit in the next 8 to 12 hours. If you are not getting better, you may need more tests or treatment. Even though you have been released from the emergency room, you still need to watch for any problems. The doctor carefully checked you. But sometimes problems can develop later. If you have new symptoms, or if your symptoms do not get better, return to the emergency room or call your doctor right away. A visit to the emergency room is only one step in your treatment. Even if you feel better, you stillneed to do what your doctor recommends, such as going to all suggested follow-up appointments and taking medicines exactly as directed. This will help you recover and help prevent future problems. How can you care for yourself at home? ?? Rest until you feel better. ?? Drink plenty of fluids to prevent dehydration. Choose water and other caffeine-free clear liquidsuntil you feel better. If you have kidney, heart, or liver disease and have to limit fluids, talk with your doctor before you increase the amount of fluids you drink. ?? Take your medicines exactly as directed. Call your doctor if you think you are having a problem with your medicine. ?? Do not drive after taking a prescription pain medicine. When should you call for help? Call 911 if: ?? You passed out (lost consciousness). ?? You have sudden chest pain and shortness of breath, or you cough up blood. ?? You pass maroon or very bloody stools. ?? You vomit blood or what looks like coffee grounds. ?? You have new, severe belly pain. ?? You have other symptoms that you think are a medical emergency. Return to the emergency room now if: ?? You feel weak and lightheaded. ?? Your pain becomes focused in one area of your belly. ?? Your belly pain is worse after you cough or move. ?? You have a new or higher fever. Call your doctor today if: ?? Your stools are black and tarlike or have streaks of blood. ?? You have new, unusual bleeding or discharge from the vagina. ?? You have blood in your urine, it hurts when you urinate, or you have to urinate more often than usual. ?? Your belly pain has not improved after 1 day. Where can you learn more? Go to [employer] and enter D163 in the search box. ?? [id number] [employer]. Content Version: 9.1.961090; Last Revised: December 04, 2010 . Bacterial Vaginosis: After Your Visit Your Care Instructions Bacterial vaginosis is a type of vaginal infection. It is caused by excess growth of certain bacteria that are normally found in the vagina. Symptoms can include itching, swelling, pain when you urinate or have sex, and a farr or yellow discharge with a fishy odor. It is not considered an infection that is spread through sexual contact. Although symptoms can be annoying and uncomfortable, bacterial vaginosis does not usually cause other health problems. However, if you have it while you are , it can cause complications. While the infection may go away on its own, most doctors use antibiotics to treat it. You may have been prescribed pills or vaginal cream. With treatment, bacterial vaginosis usually clears up in 5 to 7 days. Follow-up care is a conner part of [...] take the full course of antibiotics. ?? Do not eat or drink anything that contains alcohol if you are taking metronidazole (Flagyl). ?? Keep using your medicine if you start your period. Use pads instead of tampons while using a vaginal cream or suppository. Tampons can absorb the medicine. ?? Wear loose cotton clothing. Do not wear nylon and other materials that hold body heat and moisture close to the skin. ?? Do not scratch. Relieve itching with a cold pack or a cool bath. ?? Do not wash your vaginal area more than once a day. Use plain water or a mild, unscented soap. Donot douche. When should you call for help? Watch closely for changes in your health, and be sure to contact your doctor if: ?? You have unexpected vaginal bleeding. ?? You have a fever. ?? You have new or increased pain in your vagina or pelvis. ?? You are not getting better after 1 week. Where can you learn more? Go to [employer] and enter X360 in the search box. Current as of: January 30, 2014 Content Version: 10.1 ?? [id number] [employer]. NG ASSEMBLER SUPERVISOR documented in this encounter Medications at Time of Discharge Medication Sig Dispensed Refills Start Date End Date levonorgestrel (AKA 1 Each by Intrauterine 0 MIRENA) 20 MCG/24HR IUD route once. ondansetron (AKA Take 1 Tab by mouth 10 Tab 0 12/31/2014 ZOFRAN) 4 MG tablet every 8 hours as needed for Nausea. oxyCODONE-acetaminophen Take 1-2 Tabs by mouth 16 Tab 0 12/31/2014 (AKA PERCOCET) 5-325 MG every 4 hours as tablet needed for Pain. metroNIDAZOLE (AKA Insert 1 Applicatorful 5 g 0 12/3101/05/2015 METROGEL-VAGINAL) 0.75 vaginally daily at % vaginal gel bedtime for 5 days. ibuprofen (AKA MOTRIN) Take 600 mg by mouth 0 05/08/2022 600 MG tablet every 6 hours as needed for Pain. ondansetron (AKA Take 1 Tab by mouth 10 Tab 0 12/31/2014 05/08/2022 ZOFRAN) 4 MG every 8 hours as disintegrating tablet needed for Nausea. documented as of this encounter ED Notes Angeles Islas APRN, DNP - 12/31/2014 7:32 PM CST [facility] ED Nursing Discharge Note Vital Signs: BP: 108/69 mmHg Temp: 98.3 ??F (36.8 ??C)Temp src: Oral Pulse: 75 Resp: 18 SpO2: 99 % Pain Rating: Rest: 5, Pain Rating: Activity: 6 Admission Date/Time: 12/31/2014 9:16 AM Attending MD: Holland Burton MD Patient discharged: to Home. Patient accompanied by: relative. Transported by: Walked Valuables were taken home by patient: Yes Work/School Slip given: No Discharge instructions given and explained to patient: Yes Discharge prescriptions given and explained to patient: Yes Patient verbalized understanding. Yes Patient level of pain on discharge: 4/10 Patients condition on discharge related to chief complaint and treatment in ED: Patient discharged to home with no questions or concerns at this time. Vital signs stable. Pt alert and oriented x 4, ambulates independently. Script given to patient. Pt verbalizes understanding of discharge teachings. ---End of Report--- NG ASSEMBLER SUPERVISOR Angeles Islas APRN, DNP - 12/31/2014 7:04 PM CST MD at bedside with patient at this time. Tacos Blanco MD - 12/31/2014 6:42 PM CST [facility] Emergency Department Attending Supervision Note MARLA care under my supervision. Discussed CT workup after US and agree with plan. Did not see patient. NG ASSEMBLER SUPERVISOR Angeles Islas APRN, DNP - 12/31/2014 6:32 PM CST Pt requesting to talk to MD regarding CT results. MD notified. NG ASSEMBLER SUPERVISOR Angeles Islas APRN, DNP - 12/31/2014 5:13 PM CST Pt resting, awaiting CT scan at this time. NG ASSEMBLER SUPERVISOR Padmini Guzman MD - 12/31/2014 5:06 PM CST ED Signout Acceptance Note Keyla Porter is a 24 yr yo female who was signed out to me by Alirio Hernandez PA-C at 5:06 PM. For complete history and physical, please see the ED staff's note. In brief, Keyla Porter is a 24 yr old female who was seen in the ED for RLQ pain, 5 days, comesand goes and worsening. Nausea and vomiting yesterday. No fevers. H/o endometriosis with lap scope 4years ago. Does not feel similar. Adnexal pain, pelvic. US negative. UPT neg, UA neg, CT abd pending. Dilaudid for pain with zofran/compazine and benadryl. Low doses of dilaudid. Awaiting CT abd. Vital signs: BP 98/50 Pulse 59 Temp(Src) 98.1 ??F (36.7 ??C) (Oral) Resp 10 SpO2 98% ED Course Under My Care: I reviewed the patient's imaging, no signs of acute genitourinary pathologyon ultrasound. CT of the abdomen was completed, it showed a hemorrhagic cyst in left ovary intrauterine device in place, no evidence of small bowel obstruction or appendicitis at this time. I went in and reassessed the patient, she still having some pain. Her the results of her imaging, I suspect her abdominal pain could be due to endometriosis that she has had in the past. She has a glass block bender who she can follow up with. Plan to discharge home the patient with a short course of Percocet as well as Zofran for her nausea. Given MetroGel for bacterial v aginosis. Patient understands, knows when to come back to the emergency department to be re-evaluated. Patient was stable under my care in the emergency department stable upon discharge home. Diagnosis: 1. BV (bacterial vaginosis) 2. Abdominal pain, unspecified site Plan: home Condition: Stable Padmini Guzman MD Emergency Medicine Resident NG ASSEMBLER SUPERVISOR Angeles Islas APRN, DNP - 12/31/2014 3:54 PM CST Pt started PO contrast at this time. NG ASSEMBLER SUPERVISOR Alirio Hernandez PA-C - 12/31/2014 9:55 AM CST [facility] Emergency Department Visit Note Chief Complaint: ABDOMINAL PAIN--ED History of Present Illness DERECK Ramirez is a 1 yr old female with hx of endometriosis , ovarian cyst, pyelonephritis,who presents to the Emergency Department for evaluation of abdominal pain localized to RLQ and radiates diffusely across lower abdomen, groin and right lower back. For the past five days the patient has experienced an increase in throbbing abdominal pain that waxes and wanes in severity, but it is ratcheting up. Reports exacerbation to lower abdominal/pelvic pain with bowel movements. Symptoms are similar to prior ovarian cyst pain. Endorses some alleviation upon palpation and with ambulation. Patient has current IUD with LMP three months ago. Has had vaginal discharge but nothing abnormal. Patienthas had three incidences of black stool although has been medicating with Pepto Bismol. Also taking ibuprofen with minimal relief. She reports vomiting yesterday with continued nausea today. Has had normal urine output without dysuria, hematuria or frequency although reports pain after urination. Denies fever, chills, diarrhea, constipation or diaphoresis. Laproscopic surgery 4 yrs ago with burning of endometriosis. Has family hx of renal stones. History obtained from the patient. Patient's boyfriend was also present. Previous Medications IBUPROFEN (AKA MOTRIN) 600 MG TABLET Take 600 mg by mouth every 6 hours as needed for Pain. LEVONORGESTREL (AKA MIRENA) 20 MCG/24HR IUD 1 Each by Intrauterine route once. Allergies: Food and Morphine sulfate There is no problem list on file for this patient. Past Medical History Diagnosis Date ??? Harrison ??? UTI ??? Endometriosis ??? Heart murmur ??? UTI (lower urinary tract infection) ??? Pyelonephritis Past Surgical History Procedure Laterality Date ??? Laparoscopy procedure endometriosis History Substance Use Topics ??? Smoking status: Current Every Day Smoker -- 0.50 packs/day Types: Cigarettes ??? Smokeless tobacco: Not on file ??? Alcohol Use: Yes Comment: social Review of Systems A complete 10 point review of systems was obtained, the positives and negatives are reviewed above and in history present illness. Physical Exam Vital signs: BP 98/50 Pulse 59 Temp(Src) 98.1 ??F (36.7 ??C) (Oral) Resp 10 SpO2 98% Physical Exam General: awake, alert, NAD HEENT: sclera anicteric bilaterally, posterior oropharynx clear Pulmonary: Clear breath sounds bilaterally Cardio: regular rate and rhythm Abdomen: bowel sounds present but diminished, tender to right adnexa - less to McBurney's point and suprapubic aspect, mild rebound with no guarding, no organomegaly Back/Spine: Right paralumbar tenderness - less to spine. Flanks nontender : external within normal limits, vaginal vault white moderate mucoid discharge - cultured, no blood, mild to moderate CMT, uterus small and mildly tender, left adnexa mildly tender, right adnexa moderately tender, hands moved up to McBurney's and less tender Labs/Imaging: CBC: All components wnl UA: All components wnl Wet Prep: clue cells present US Pelvic: 1. Ovaries are both within normal limits. Normal arterial and venous blood flow is seen in both ovaries with no evidence of ovarian torsion. 2. IUD is visualized within the uterus Medical Decision Making & ED Course ED Course: 9:35 AM: Initial examination began 11:08 AM: At bedside for pelvic examination 12:27 PM: At bedside discussing results 2:19 PM: Consult with Dr. Tacos Mathias 2:24 PM: At bedside discussing results/plan MDM: 24 yr old female presents to ED with complaint of RLQ abdominal pain. VS stable. Exam as noted above; tender to left adnexa. White discharge noted in the vaginal vault - cultured obtained. DDX include adhesions, ovarian torsion, ovarian cyst, endometriosis, TOA, PID, appendicitis, volvulus, obstruction. IV fluids, antiemetics, benadryl and hydromorphone administered in ED. CBC unremarkable. UA showing no evidence of infection. Wet prep results with clue cells of BV. Will rx metronidazole gel for outpatient management per patient request. BV may cause PID although this isnot common. US pelvis did not show any evidence of acute pathology. Upon reexamination, patient continued to have pain to RLQ and remained nauseous. Given continuation of symptoms, CT w/ contrast was ordered for assessment of appendicitis, bowel issues. Could be adhesions/endometriosis, though pt.states that pain differs. Patient signed out to Padmini Guzman MD pending CT results and further disposition. I have reviewed the patient's Lab(s), Medical Imaging and Medical Records. Diagnosis & Disposition Diagnosis: 1. BV (bacterial vaginosis) This document serves as a record of services personally performed by Alirio Hernandez PA-C. It was created on his behalf by Cb Lucas, a trained medical billing and coding specialist. The creation of this record is based on the scribe's personal observations and the provider's statements to her. The document has been checked and approved by the attending provider. NG ASSEMBLER SUPERVISOR Naheed Alexis RN - 12/31/2014 9:30 AM CST Pt states abdominal cramping x 5 days, attributes it to endometriosis and ovarian cysts. States nausea with 1 episode of vomiting yesterday, no N/V today. Pt states she's been on various forms of BC totry to help the endometriosis and cysts, and that it has helped, but not completely. Has tried Ibuprofen without helping the pain, denies being on any other prescription meds for pain control. States her records are through [facility]. NG ASSEMBLER SUPERVISOR Libertad Johnson RN - 12/31/2014 9:02 AM CST Patient with a history of endometriosis and an ovarian cyst on the right presents to the ER with a compliant of low right abdominal pain that she has had for the past 5 days with it getting worse this morning. NG ASSEMBLER SUPERVISOR documented in this encounter Plan of Treatment Not on filedocumented as of this encounter Procedures Procedure Name Priority Date/Time Associated Comments Diagnosis CT ABD PELVIS W IV STAT 12/31/2014 6:01 PM Res ults for this CONT SPRING ASSEMBLER SUPERVISOR procedure are i n the results section. UA WITH MICROSCOPIC STAT 12/31/2014 12:15 Resu lts for this PM [employer]ING [employer]SEMBLER SUPERVISOR procedure are i n the results section. US PELVIC COMPLETE W STAT 12/31/2014 12:00 Res ults for this EV PM SPRING ASSEMBLER SUPERVISOR procedure are i n the results section. CHLAMYDIA & GC (14 Routine 12/31/2014 11:05 Resul ts for this YEARS AND OLDER) AM SPRING ASSEMBLER SUPERVISOR procedure a re in the results section. VAGINAL WET PREP STAT 12/31/2014 11:05 Results for this AM [employer]ING ASSEMBLER SUPERVISOR procedure are i n the results section. ADD ON LAB STAT 12/31/2014 10:28 Results for this ORDERS(SPECIMEN IN AM SPRING ASSEMBLER SUPERVISOR procedure are in LAB) the results section. GOLD HOLD TUBE (OR Routine 12/31/2014 10:28 Resul ts for this RED/FARR) AM [employer]ING ASSEMBLER SUPERVISOR procedure are i n the results section. LIGHT GREEN HOLD TUBE Routine 12/31/2014 10:28 Re sults for this AM [employer]ING ASSEMBLER SUPERVISOR procedure are i n the results section. CREATININE / GFR Routine 12/31/2014 10:28 Results for this AM SPRING ASSEMBLER SUPERVISOR procedure are i n the results section. COMPLETE BLOOD STAT 12/31/2014 10:28 Results f or this COUNT-W/DIFF AM [employer]ING ASSEMBLER SUPERVISOR procedure are i n the results section. COAG HOLD (BLUE TUBE) Routine 12/31/2014 10:28 Re sults for this AM SPRING ASSEMBLER SUPERVISOR procedure are i n the results section. BB HOLD TUBE ([facility] Routine 12/31/2014 10:28 Re sults for this ONLY) AM SPRING ASSEMBLER SUPERVISOR procedure are i n the results section. ABO/RH(D) RETYPE Routine 12/31/2014 10:21 Results for this AM SPRING ASSEMBLER SUPERVISOR procedure are i n the results section. STAT 12/31/2014 10:15 Results for this TEST(URINE),POINT OF AM SPRING ASSEMBLER SUPERVISOR procedu re are in CARE the results section. documented in this encounter Results CT ABDOMEN/PELVIS WITH IV CONTRAST (12/31/2014 6:01 PM SPRING ASSEMBLER SUPERVISOR) Anatomical Region Laterality Modality Abdomen, Pelvis Computed Tomography Specimen (Source) Anatomical Collection Method Collection Time Re ceived Time Location / / Volume Laterality 12/31/2014 6:01 PM SPRING ASSEMBLER SUPERVISOR Narrative 12/31/2014 6:12 [address] SPRING [employer]SEMBLER [employer]PERVIS[employer] CT ABD/PEL W IV CONT: 12/31/2014 6:01 PM ? INDICATION: Abdominal pain, question end ometriosis or appendicitis TECHNIQUE: Exam performed in a helical f ashion with sagittal and coronal reformatting. IV CONTRAST: 125 mLs Omnipaque 300 COMPARISON: Pelvic ultrasound dated jhon ier today FINDINGS: LUNG BASES: Normal. ABDOMEN: There are small cysts scattered throughout the liver. No evidence for a solid mass. The spleen, pancreas, right kidney, adrenal glands and gallbladder are unremarkable. Small cyst in the upper pole of the left kidney. PELVIS: There is an IUD in good position . Hemorrhagic cyst left ovary. Scattered diverticula in the colon. The appendix is not identified; however, there is nothing to suggest penny endicitis. MUSCULOSKELETAL: Negative. CONCLUSION: Hemorrhagic cyst left ovary. IUD in place. Small hepatic and left renals cysts. Otherwise unremarkabl e. Procedure Note Miki Burdick MD - 12/31/2014Forma tting of this note might be different from the original. CT ABD/PEL W IV CONT: 12/31/2014 6:01 PM INDICATION: Abdominal pain, question end ometriosis or appendicitis TECHNIQUE: Exam performed in a helical f ashion with sagittal and coronal reformatting. IV CONTRAST: 125 mLs Omnipaque 300 COMPARISON: Pelvic ultrasound dated jhon ier today FINDINGS: LUNG BASES: Normal. ABDOMEN: There are small cysts scattered throughout the liver. No evidence for a solid mass. The spleen, pancreas, right kidney, adrenal glands and gallbladder are unremarkable. Small cyst in the upper pole of the left kidney. PELVIS: There is an IUD in good position . Hemorrhagic cyst left ovary. Scattered diverticula in the colon. The appendix is not identified; however, there is nothing to suggest penny endicitis. MUSCULOSKELETAL: Negative. CONCLUSION: Hemorrhagic cyst left ovary. IUD in place. Small hepatic and left renals cysts. Otherwise unremarkabl e. Tacos Mathias MD RAD CT UA AND MICROSCOPIC (12/31/2014 12:15 PM SPRING ASSEMBLER SUPERVISOR) athologist Signature Urine Color Yellow [facility] Urine Clarity Clear [facility] Specific 1.020 1.005 - [facility] [place].030 [facility] pH, Urine 6.0 4.5 - 8.0 [facility] Protein, Urine Negative NEG mg/dl [facility] Glucose, Urine Negative NEG mg/dl [facility] Ketones, Urine Negative NEG mg/dl [facility] Urobil, Urine <2.0 <2.0 mg/dl [facility] Bilirubin, Negative NEG [facility] Comment: Test sensitivity has changed, correlate clinically and/or with other laboratory tests. Blood, Urine Negative NEG [facility] Nitrite, Urine Negative NEG [facility] L Leukocyte Est., Ur Negative NEG [facility] RBC'S <1 0 - 3 /hpf [facility] WBC'S <1 0 - 5 /hpf [facility] Mucous, Urine Present [facility] Specimen Anatomical Collection Method Collection Time Receive d Time (Source) Location / / Volume Laterality 12/31/2014 12:15 12/31/2014 PM SPRING ASSEMBLER SUPERVISOR 12:35 PM SPRING ASSEMBLER SUPERVISOR Narrative [facility] - 12/31/2014 12:[address] Performed at [facility] , [address] [place] [id number] Tacos Mathias MD LAB_1 Performing Organization Address City/State/ZIP Code Phon e Number [address] [address] US PELVIS COMPLETE W INTERNAL VAGINAL (12/31/2014 12:00 PM SPRING ASSEMBLER SUPERVISOR) Anatomical Region Laterality Modality Pelvis Ultrasound Specimen (Source) Anatomical Collection Method Collection Time Re ceived Time Location / / Volume Laterality 12/31/2014 12:00 PM SPRING ASSEMBLER SUPERVISOR Narrative 12/31/2014 2:25 PM SPRING ASSEMBLER SUPERVISOR US PELVIS COMPLETE W/IVT (UTERUS/OVARIES) 12/31/2014 12:00 [...] visualized within the uterus. Tacos Mathias MD RAD US CHLAMYDIA & GC (12/31/2014 11:05 AM SPRING ASSEMBLER SUPERVISOR) athologist Signature Source Cervix [facility] Chlamydia Negative NEG [facility] Comment: Test Performed by Shank Carrier Mediated Amplification GC (N. gonorrhoeae) Negative NEG [facility] Comment: Test Performed by Shank Carrier Mediated Amplification Specimen Anatomical Collection Method Collection Time Receive d Time (Source) Location / / Volume Laterality 12/31/2014 11:05 12/31/2014 AM SPRING ASSEMBLER SUPERVISOR 11:44 AM SPRING ASSEMBLER SUPERVISOR Critical access hospital - 12/31/2014 7:09 PM CS T Performed at [facility], [address] [place] [address] ??[id number] Tacos Mathias MD LAB_1 Performing Organization Address [facility]/ZIP Code Phon e Number [address] [address] (ABNORMAL) WET PREP, VAGINAL (12/31/2014 11:05 AM SPRING ASSEMBLER SUPERVISOR) [facility] gist Method Time Signature Clue Cells Clue Cells NCLUE [facility] Present (A) [facility] Trichomonas No Trichomonas NTRIC [facility] Seen [facility] Yeast No Yeast Found YN [facility] Specimen Anatomical Collection Method Collection Time Receive d Time (Source) Location / / Volume Laterality 12/31/2014 11:05 12/31/2014 AM SPRING ASSEMBLER SUPERVISOR 11:43 AM SPRING ASSEMBLER SUPERVISOR Critical access hospital - 12/31/2014 11:[address] Performed at [facility] , [address] [place] [id number] Tacos Mathias MD LAB_1 Performing Organization Address City/[facility]/ZIP [facility] Phon e Number [phone] [address] CREATININE / GFR (12/31/2014 10:28 AM SPRING ASSEMBLER SUPERVISOR) athologist Signature Creatinine 0.72 0.52 - [facility] 1.04 mg/dl HOSPITAL GFR, Estimated >60 >60 [facility] ml/min/1.7 HOSPITAL 3m2 GFR, Est., If >60 >60 [facility] Black ml/min/1.7 [facility] 3m2 Specimen Anatomical Collection Method Collection Time Receive d Time (Source) Location / / Volume Laterality 12/31/2014 10:28 12/31/2014 AM SPRING ASSEMBLER SUPERVISOR 10:41 AM SPRING ASSEMBLER SUPERVISOR Narrative [facility] - 12/31/2014 3:16 PM CS T Performed at [facility] , [address] [place] [id number] Tacos Mathias MD LAB_1 Performing Organization Address City/[facility]/ZIP Code Phon e Number [phone] [address] ADD ON LAB ORDERS(SPECIMEN IN LAB) (12/31/2014 10:28 AM SPRING ASSEMBLER SUPERVISOR) [facility] [employer] Method Time Signature Add On Test Additional [facility] Ordered by Specimen Anatomical Collection Method Collection Time Receive d Time (Source) Location / / Volume Laterality 12/31/2014 10:28 12/31/2014 AM SPRING ASSEMBLER SUPERVISOR 10:41 AM SPRING ASSEMBLER SUPERVISOR Narrative [facility] - 12/31/2014 2:46 PM CS T Performed at [facility] , [address] [place] [id number] Tacos Mathias MD LAB_1 Performing Organization Address City/[facility]/ZIP Code Phon e Number [phone] [address] BB HOLD TUBE ([facility] ONLY) (12/31/2014 10:28 AM SPRING ASSEMBLER SUPERVISOR) [facility] Method Time Signature BB Hold Tube Blood Bank [facility] save [facility] expires in 3 days Specimen Anatomical Collection Method Collection Time Receive d Time (Source) Location / / Volume Laterality 12/31/2014 10:28 12/31/2014 AM SPRING ASSEMBLER SUPERVISOR 10:41 AM SPRING ASSEMBLER SUPERVISOR Narrative [facility] - 12/31/2014 10:[address] Performed at [facility] , [address] [place] [id number] Tacos Mathias MD LAB_1 Performing Organization Address City/State/ZIP Code Phon e Number [facility] [address] [place] [address] [address] LIGHT GREEN HOLD TUBE (12/31/2014 10:28 AM SPRING ASSEMBLER SUPERVISOR) [facility] gist Method Time Signature Light Green Held in [facility] Hold Tub Chemistry HOSPITAL sample rack for 7 days Specimen Anatomical Collection Method Collection Time Receive d Time (Source) Location / / Volume Laterality 12/31/2014 10:28 12/31/2014 AM SPRING ASSEMBLER SUPERVISOR 10:41 AM SPRING ASSEMBLER SUPERVISOR Narrative [facility] - 12/31/2014 10:[address] Performed at [facility] , [address] [place] [id number] Tacos Mathias MD LAB_1 Performing Organization Address City/State/ZIP Code Phon e Number [phone] [address] GOLD HOLD TUBE (OR RED/FARR) (12/31/2014 10:28 AM SPRING ASSEMBLER SUPERVISOR) [facility] gist Method Time Signature Gold Hold Held in [facility] Tube Chemistry HOSPITAL sample rack for 7 days Specimen Anatomical Collection Method Collection Time Receive d Time (Source) Location / / Volume Laterality 12/31/2014 10:28 12/31/2014 AM SPRING ASSEMBLER SUPERVISOR 10:41 AM SPRING ASSEMBLER SUPERVISOR Narrative [facility] - 12/31/2014 10:[address] Performed at [facility] , [address] [place] [id number] Tacos Mathias MD LAB_1 Performing Organization Address City/[facility]/ZIP Code Phon e Number [address] [address] COAG HOLD (BLUE TUBE) (12/31/2014 10:28 AM SPRING ASSEMBLER SUPERVISOR) P athologist Signature Coag Hold Held in [facility] Coag [facility]OSPITAL for 8 hours Specimen Anatomical Collection Method Collection Time Receive d Time (Source) Location / / Volume Laterality 12/31/2014 10:28 12/31/2014 AM SPRING ASSEMBLER SUPERVISOR 10:41 AM SPRING ASSEMBLER SUPERVISOR Narrative [facility] - 12/31/2014 10:[address] Performed at [facility] , [address] [place] [id number] Tacos Mathias MD LAB_1 Performing Organization Address City/State/ZIP Code Phon e Number [address] [address] HEMOGRAM/PLTS/DIFF (12/31/2014 10:28 AM SPRING ASSEMBLER SUPERVISOR) athologist Signature WBC 6.2 4.0 - 11.0 [facility] RBC 4.23 4.0 - 5.2 [facility] Hemoglobin 13.0 12.0 - [facility] 16.0 g/dl HOSPITAL HCT 39.0 36.0 - [facility] 46.0 % HOSPITAL MCV 92.2 80 - 100 [facility] MCH 30.7 26 - 34 pg [facility] MCHC 33.3 32 - 36 [facility] g/dl HOSPITAL RDW 13.2 11.5 - [facility] 14.5 % HOSPITAL Platelets 221 150 - 450 [facility] MPV 9.9 9.4 - 12.4 [facility] PMN/Band 54 % [facility] Lymph 36 % [facility] Harrison 8 % [facility] Eos 2 % [facility] Baso 0 % [facility] Neutrophil 3.3 1.8 - 7.7 [facility] Absolute [facility] HOSPITAL Lymph Absolute 2.2 1.0 - 4.8 [facility] Harrison Absolute 0.5 0.1 - 0.7 [facility] Eos Absolute 0.1 0.0 - 0.5 [facility] HOSP[facility] Baso Absolute 0.0 0.0 - 0.2 [facility] Immature Gran 0 % [facility] Imm Gran 0.0 0 [facility]OS[facility] Specimen Anatomical Collection Method Collection Time Receive d Time (Source) Location / / Volume Laterality 12/31/2014 10:28 12/31/2014 AM SPRING ASSEMBLER SUPERVISOR 10:40 AM SPRING ASSEMBLER SUPERVISOR Narrative [facility] - 12/31/2014 10:[address] Performed at [facility] , [address] [place] [address] Tacos Mathias MD LAB_1 Performing Organization Address City/State/ZIP Code Phon e Number [address] [address] ABO/RH(D) RETYPE (12/31/2014 10:21 AM SPRING ASSEMBLER SUPERVISOR) athologist Signature ABO/RH(D) A POSITIVE [facility] Specimen Anatomical Collection Method Collection Time Receive d Time (Source) Location / / Volume Laterality 12/31/2014 10:21 12/31/2014 AM SPRING ASSEMBLER SUPERVISOR 10:54 AM SPRING ASSEMBLER SUPERVISOR Critical access hospital - 12/31/2014 11:[address] Performed at [facility] , [address] [place] [address] Tacos Mathias MD LAB_1 Performing Organization Address [facility] Phon e Number [address] [address] TEST(URINE),POINT OF CARE (12/31/2014 10:15 AM SPRING ASSEMBLER SUPERVISOR) [facility] Method Time Signature HCG, Urine Negative [facility] Negative = <25 mIU/ml HOSPITAL If is suspected, suggest repeat in 48-72 hours or confirm results with a quantitative hCG test. Specimen Anatomical Collection Method Collection Time Receive d Time (Source) Location / / Volume Laterality Urine specimen 12/31/2014 10:15 5 1:49 (specimen) AM SPRING ASSEMBLER SUPERVISOR PM SPRING ASSEMBLER SUPERVISOR Critical access hospital - 12/31/2014 1:50 PM CS T Performed at [facility] , [address] [place] [id number] Tacos Mathias MD LAB_1 Performing Organization Address [facility] Phon e Number [address] [address] documented in this encounter Visit Diagnoses Diagnosis BV (bacterial vaginosis) - Primary Vaginitis and vulvovaginitis, unspecifie d Abdominal pain, unspecified site Abdominal pain, right lower quadrant Vomiting alone Personal history of allergy to sulfonami jose elias documented in this encounter Administered Medications Inactive Administered Medications - up to 3 most recent administrations Medication Order MAR Action Action Date Dose Rate Site diphenhydrAMINE (aka BENADRYL) Given 12/31/2014 2:10 PM SPRING ASSEMBLER SUPERVISOR 25 m g injection 25 mg 25 mg, Intravenous, ONCE, On Tue12/31/14 at 1410, For 1 dose HYDROcodone-acetaminophen (aka NORCO) 5-325 Given 12/22 9:53 AM SPRING ASSEMBLER SUPERVISOR 1 Tablet MG tablet TABS 1 Tab 1 Tablet, Oral, ONCE, On Tue12/31/14 at 0953, For 1 dose, Caution: Look-alike, sound-alike medication. HYDROmorphone (aka DILAUDID) injection 0.25 Given 12/22 12:36 PM SPRING ASSEMBLER SUPERVISOR 0.25 mg mg 0.25 mg, Intravenous, ONCE, On Tue12/31/14 at 1221, For 1 dose, Caution: Look-alike, sound-alike medication. HYDROmorphone (aka DILAUDID) injection 0.5 Given 12/31/2014 10:26 AM SPRING ASSEMBLER SUPERVISOR 0.5 mg mg 0.5 mg, Intravenous, ONCE, On Tue12/31/14 at 1016, For 1 dose, Caution: Look-alike, sound-alike medication. NaCl 0.9 % infusion 1,000 mL Started 12/31/2014 10:59 AM SPRING ASSEMBLER SUPERVISOR 1,000 mL 1000 mL/hr 1,000 mL, Intravenous, at 1,000 mL/hr, ONCE, On Tue12/31/14 at 1033, For 1 dose, Bolus ondansetron (aka ZOFRAN) injection 4 mg Given 12/31/2014 10:26 AM SPRING ASSEMBLER SUPERVISOR 4 mg 4 mg, Intravenous, ONCE, On Tue12/31/14 at 1016, For 1 dose ondansetron (aka ZOFRAN) injection 4 mg Given 12/31/2014 10:36 AM SPRING ASSEMBLER SUPERVISOR 4 mg 4 mg, Intravenous, ONCE, On Tue12/31/14 at 1036, For 1 dose prochlorPERAZINE (aka COMPAZINE) injecti on 5 mg Given 12/31/2014 2:10 PM SPRING ASSEMBLER SUPERVISOR 5 mg 5 mg, Intravenous, ONCE, On Tue12/31/14 at 1410, For 1 dose, Caution: Look-alike, sound-alike medication. documented in this encounter Active and Recently Administered Medications Times are shown in SPRING ASSEMBLER SUPERVISOR. Scheduled Medication Order 12/29/2014 12/30/2014 12/31/2014 diphenhydrAMINE (aka BENADRYL) injection 25 mg (COMPLETED) 1410 (Given - Provider: Naheed Alexis RN) 25 mg, IV, ONCE, 1 dose, 12/31/14 at 1410 HYDROcodone-acetaminophen (aka NORCO) 5-325 MG tablet TABS 1 Tab (COMPLETED) 0953 (Given - Provider: Naheed Alexis RN) 1 Tab, Oral, ONCE, 1 dose, 12/31/14 at 0953 HYDROmorphone (aka DILAUDID) injection 0.25 mg (COMPLETED) 1236 (Given - Provider: Jamin Harrington RN) 0.25 mg, IV, ONCE, 1 dose, 12/31/14 at 1221 HYDROmorphone (aka DILAUDID) injection 0.5 mg (COMPLETED) 1026 (Given - Provider: Naheed Alexis RN) 0.5 mg, IV, ONCE, 1 dose, 12/31/14 at 1016 NaCl 0.9 % infusion 1,000 mL (COMPLETED) 1059 (Started - Provider: Naheed Alexis RN)1421 (Infused - Provider: Naheed Alexis RN) 1,000 mL, at 1,000 mL/hr, IV, ONCE, 1 dose, 12/31/14 at 1033 ondansetron (aka ZOFRAN) injection 4 mg (COMPLETED) 1026 (Given - Provider: Naheed Alexis RN) 4 mg, IV, ONCE, 1 dose, Tue 15 at 1016 ondansetron (aka ZOFRAN) injection 4 mg (COMPLETED) 1036 (Given - Provider: Naheed Alexis RN) 4 mg, IV, ONCE, 1 dose, 12/31/14 at 1036 prochlorPERAZINE (aka COMPAZINE) injection 5 mg (COMPLETED) 1410 (Given - Provider: Naheed Alexis RN) 5 mg, IV, ONCE, 1 dose, 12/31/14 at 1410 documented in this encounter Care Teams Deep Sea Diver Relationship Specialty Start Date End Date No Primary/Referring, Phy PCP - General 08/01/12 documented as of this encounter
--- OUTSIDE RECORDS SUMMARY | 2022-08-31 22:22 | XMS_ITS | Encounter Summary ---
:1990 Author Organization [facility] Address [address] [place] [address] Care Team Providers Name Role Phone No Primary/Referring, Phy Primary Care Provider Unavailable Reason for Visit Reason Comments HIP PAIN--ED Encounter Details Date Type Department Care Team Description 08/01/2012 Emergency [facility] Holland Burton, SI (sacroiliac) joint dysfun ction; [address] Harley Jeffries MD Pain in joint, pelvic region and thigh [place], [place] [id number] Social History Tobacco Use Types Packs/Day Years Used Date Smoking Tobacco: Every Day Cigarettes 0.5 Alcohol Use Standard Drinks/Week Comments No 0 (1 standard drink = 0.6 oz pure alcoho l) Sex Assigned at Date Recorded Not on file documented as of this encounter Last Filed Vital Signs Vital Sign Reading Time Taken Comments Blood Pressure 120/73 08/01/2012 6:45 PM CDT Pulse 79 08/01/2012 6:45 PM CDT Temperature 37.2 ??C (98.9 ??F) 08/01/2012 6:45 PM CDT Respiratory Rate 16 08/01/2012 6:45 PM CDT Oxygen Saturation 99% 08/01/2012 6:45 PM CDT Inhaled Oxygen Concentration - - Weight - - Height - - Body Mass Index - - documented in this encounter Discharge Instructions Discharge InstructionsKiHolland major MD - 08/01/2012 7:12 PM CDT Please follow up with your primary care provider tomorrow in clinic. . documented in this encounter Medications at Time [...] hours as needed for Itching. HYDROcodone-acetaminophen Take 1 Tab by mouth 3 Tab 0 0 08/01/2012 06/01/2013 (NORCO) 5-325 MG tablet every 4 hours as needed for Pain. HYDROcodone-acetaminophen Take 1-2 Tabs by 8 Tab 0 04/0 05/201206/01/2013 (NORCO) 5-325 MG tablet mouth at [...] 0 03/18/2012 06/01/2013 20 MG tablet daily. multivitamin-iron Take 1 Tab by mouth 0 06/01/2013 27-1 MG daily. Vit-DSS-Fe Cbn-FA 0 06/01/2013 ( [facility] OR) documented as of this encounter ED Notes Laney Mtz RN - 08/01/2012 7:19 PM CDT [facility] ED Nursing Discharge Note Vital Signs: BP: 120/73 mmHg Temp: 98.9 ??F (37.2 ??C)Temp src: Oral Pulse: 79 Resp: 16 SpO2: 99 % Pain Scale (0-10): 9 Admission Date/Time: 08/01/2012 6:54 PM Attending MD: @TIM@ Patient discharged: to Home. Patient accompanied by: parent. Transported by: Walked Valuables were taken home by patient: Yes Work/School Slip given: No Discharge instructions given and explained to patient: Yes Discharge prescriptions given to patients: Yes: New Prescriptions HYDROCODONE-ACETAMINOPHEN (NORCO) 5-325 MG TABLET Take 1 Tab by mouth every 4 hours as needed for Pain. Patient verbalized understanding. Yes Patient level of pain on discharge: Same Patients condition on discharge related to chief complaint and treatment in ED: Stable, no acute distress. ---End of Report--- Laney Mtz RN - 08/01/2012 7:18 PM CDT Pt requesting a cane for ambulation. Fitted by ERT. Laney Mtz RN - 08/01/2012 7:05 PM CDT Pt with left hip pain X 1 week. Denies trauma. PT has some shooting pains down left leg to her knee and up to the mid back area. No loss of bowel or bladder control. No relief from tylenol. T Holland Burton MD - 08/01/2012 7:04 PM CDT [facility] Emergency Department Visit Note Visit note has been dictated: see dictated note ( ) PMH: Past Medical History Diagnosis Date ??? [place] ??? UTI ??? Endometriosis ??? Heart murmur Past Surgical History Procedure Date ??? Laparoscopy procedure endometriosis Meds: No outpatient prescriptions have been marked as taking for the 08/01/12 encounter (Hospital Encounter). Allergies: Food Social and Family History: History Substance Use Topics ??? Smoking status: Current Everyday Smoker -- 0.5 packs/day Types: Cigarettes ??? Smokeless tobacco: Not on file ??? Alcohol Use: No No family history on file. Review of Systems: No fever chills, urgency, frequency, dysuria or melena, no vaginal discharge or bleeding. Condition on disposition: Stable Deja Stokes RN - 08/01/2012 6:43 PM CDT Patient presents to ED with c/o left hip pain ongoing 1 week. States that pain has become more severe over the past few days. Rates pain currently at 9/10, unrelieved by Tylenol at home. Patient statesthat she is now having difficulty walking r/t pain. Patient is 30 weeks . Reports slight abdominal cramping. Denies any vaginal bleeding/discharge. Holland Burton MD - 08/01/2012 12:00 AM CDT DATE OF SERVICE: 08/01/2012 CHIEF COMPLAINT: Lower back pain. FINAL IMPRESSION: SI joint disruption. HPI: Historically, this is a 22-year-old female, currently 30 weeks , presenting to the emergency department with complaints of left lower back discomfort. This has been present for approximately a week. She initially accepted this as part of her with subsequently noted even an inability to walk without discomfort. She has attempted to use Tylenol on 2 occasions without much successin relief of her pain. She had no distal anesthesia or paresthesia. She does note a shooting pain present in the lower back with the coughing and sneezing. No loss of bowel or bladder continence has been noted. PHYSICAL EXAM: She demonstrates a lower abdomen consistent with dates. She has notable tenderness over the sacroiliac joint to the left of the midline with reproduction of her pain of presentation on palpation along the SI joint. No pubic symphyseal symptoms were stated. She notes no distal anesthesia or paresthesia with good peripheral motor strength in the lower distal myotomes. DTRs of the patellar and Achilles posts were symmetric. Hip flexor and extensor function is preserved. The patient appears to be resting comfortably on the emergency department cart during the visitation that I had with her. The upper extremity examination was unremarkable. MEDICAL DECISION MAKING: I do believe this represents softening of the SI joint at 30 weeks of gestation. I would like at this point to provide the patient with analgesia. We will provide a short course of Vicodin for her with the understanding that she contact her primary care provider to discuss further therapies. She stated her acceptance of this plan. Assistive devices were also providedat this time in hopes of providing her some safe ambulation. We will also provide her 3 tablets of Vicodin for this evening. She stated she would contact her primary care provider tomorrow. MD VONDA Doherty:nicholas Dictated: 08/01/2012 19:10:05 Transcribed: 08/01/2012 20:07:54 Job: [id number] Doc: [id number] cc: documented in this encounter Miscellaneous Notes Media - [facility], PROVIDER - 08/01/2012 12:00 AM CDT documented in this encounter Plan of Treatment Not on filedocumented as of this encounter Visit Diagnoses Diagnosis SI (sacroiliac) joint dysfunction ([facility]) Disorders of sacrum Pain in joint, pelvic region and thigh documented in this encounter Care Teams Hot [employer] Roller Relationship Specialty Start Date End Date No Primary/Referring, Phy PCP - General 08/01/12 documented as of this encounter
--- OUTSIDE RECORDS SUMMARY | 2022-08-31 22:22 | XMS_ITS | Encounter Summary ---
:1990 Author Organization [facility] Address [address] [place] [address] Care Team Providers Name Role Phone No Primary/Referring, Phy Primary Care Provider Unavailable Reason for Visit Reason Comments HIVES--ED all over entire body startin g 2 days ago Encounter Details Date Type Department Care Team Description 02/26/2012 Emergency [facility] Lawson Abel, Scabies (Primary Dx); [address] [place] [address] [facility] [phone] [place], [place] [address] (Wo rk) Social History Tobacco Use Types Packs/Day Years Used Date Smoking Tobacco: Every Day Cigarettes 0.5 Alcohol Use Standard Drinks/Week Comments No 0 (1 standard drink = 0.6 oz pure alcoho l) Sex Assigned at Date Recorded Not on file documented as of this encounter Last Filed Vital Signs Vital Sign Reading Time Taken Comments Blood Pressure 108/62 02/26/2012 10:05 PM CDT Pulse 71 02/26/2012 10:05 PM CDT Temperature 37.4 ??C (99.3 ??F) 02/26/2012 10:05 PM CDT Respiratory Rate 18 02/26/2012 10:05 PM CDT Oxygen Saturation 98% 02/26/2012 10:05 PM CDT Inhaled Oxygen Concentration - - Weight - - Height - - Body Mass Index - - documented in this encounter Discharge Instructions Discharge InstructionsLawson Abel MD - 02/26/2012 11:10 PM CDT Images from the original note were not included. Major procedures performed during your visit: None Please follow up with your primary care provider if your symptoms don't improve. Please return to the emergency room if your symptoms worsen. Thank you for choosing [facility] for your emergency medical needs. [...] would like to be seen in a [facility] clinic, please call the [facility] Appointment Desk at [phone] anytime between 7:00 AM and 9:00 PM, 7 days a week, 365 days a year (Hearing Impaired: [phone]). Please bring these instructions with you when you are seen at your follow-up appointment. .Scabies: After Your Visit Your Care Instructions Scabies is a skin problem that can cause intense itching. It is caused by very tiny bugs called mites that dig just under the skin and lay eggs. An allergic reaction to the mites causes the itching. Scabies is usually spread by agerti-du-xdgzrz contact. It is also possible, but not common, for scabies to spread through towels, clothes, and bedding. Everyone in your household should be treated. Scabies is treated with medicine. Itching may last for several weeks after treatment. Follow-up care is a conner part of your treatment and safety. Be sure to make and go to all appointments, and call your doctor if you are having problems. It???s also a good idea to know your test resultsand keep a list of the medicines you take. How can you care for yourself at home? ?? Use the lotion or cream your doctor recommends or prescribes. One treatment usually cures scabies. Do not use the cream again unless your doctor tells you to. ?? Wash all of your clothes, bedding, and towels in hot water (hotter than 130??F). You also can dry-clean your clothes and bedding or seal them in a plastic bag for 3 days. ?? Take an oral antihistamine, such as loratadine (Claritin) or diphenhydramine (Benadryl), to help stop itching. You also can use a nonprescription anti-itch cream. Read and follow all instructions onthe label. ?? Do not have physical contact with other people or let anyone use your personal items until you have finished treatment. Do not use other people's personal items until your treatment is done. Tell people with whom you have close contact that they will need treatment if they have symptoms. ?? Take an oatmeal bath to help relieve itching. Wrap 1 cup of oatmeal in a cotton cloth, and boil it in water as if you were cooking it. Use this as a sponge during your bath. Or take a bath with an anti-itch soap such as Aveeno Colloidal Oatmeal soap. When should you call for help? Call your doctor now or seek immediate medical care if: ?? You have signs of infection, such as: ?? Increased pain, swelling, warmth, or redness. ?? Red streaks leading from the mite bites. ?? Pus draining from a bite area. ?? A fever. Watch closely for changes in your health, and be sure to contact your doctor if: ?? Anyone else in your family has itching. ?? You do not get better within 2 weeks. Where can you learn more? Go to [employer] and enter S480 in the search box. ?? [id number] [employer]. Content Version: 9.1.093571; Last Revised: March 01, 2011 Rash: After Your Visit Your Care Instructions A rash is any irritation or inflammation of the skin. Rashes have many possible causes, including allergy, infection, illness, heat, and emotional stress. Follow-up care is a conner part of your treatment and safety. Be sure to make and go to all appointments, and call your doctor if you are having problems. It???s also a good idea to know your test resultsand keep a list of the medicines you take. How can you care for yourself at home? ?? Wash the area with water only. Soap can make dryness and itching worse. Pat dry. ?? Put cold, wet cloths on the rash to reduce itching. ?? Keep cool, and stay out of the sun. ?? Leave the rash open to the air as much of the time as possible. ?? Sometimes petroleum jelly (Vaseline) can help relieve the discomfort caused by a rash. A moisturizing lotion, such as Cetaphil, also may help. Calamine lotion may help for rashes caused by contact with something (such as a plant or soap) that irritated the skin. Use it 3 or 4 times a day. ?? If your doctor prescribed a cream, use it as directed. If your doctor prescribed medicine, take it exactly as directed. ?? If your rash itches so badly that it interferes with your normal activities, take an ovmj-baq-svxtgus antihistamine, such as diphenhydramine (Benadryl) or loratadine (Claritin). Read and follow all instructions on the label. When should you call for help? Call your doctor now or seek immediate medical care if: ?? You have signs of infection, such as: ?? Increased pain, swelling, warmth, or redness. ?? Red streaks leading from the area. ?? Pus draining from the area. ?? A fever. ?? You have joint pain along with the rash. Watch closely for changes in your health, and be sure to contact your doctor if: ?? Your rash is changing or getting worse. For example, call if you have pain along with the rash, the rash is spreading, or you have new blisters. ?? You do not get better after 1 week. Where can you learn more? Go to [employer] and enter U711 in the search box. ?? [id number] [employer] Content Version: 9.1.305891; Last Revised: March 02, 2011 If your rash does not go away with the prescribed medications, this is also a possibility... Atopic Dermatitis: After Your Visit Your Care Instructions Atopic dermatitis (also called eczema) is a skin problem that causes intense itching and a red, raised rash. In severe cases, the rash develops clear fluid- filled blisters. The rash is not contagious. People with this condition seem to have very sensitive immune systems that are likely to react to things that cause allergies. The immune system is the body's way of fighting infection. There is no cure for atopic dermatitis, but you can control it with care at home. Follow-up care is a conner part of your treatment and safety. Be sure to make and go to all appointments, and call your doctor if you are having problems. It???s also a good idea to know your test resultsand keep a list of the medicines you take. How can you care for yourself at home? ?? If your doctor prescribes a cream, use it as directed. If your doctor prescribes other medicine, take it exactly as directed. ?? Wash the affected area with water only. Soap can make dryness and itching worse. Pat dry. ?? Apply a moisturizer after bathing. Use a cream such as Lubriderm, Moisturel, or Cetaphil that does not irritate the skin or cause a rash. Apply the cream while your skin is still damp after lightly drying with a towel. ?? Use cold, wet cloths to reduce itching. ?? Keep cool, and stay out of the sun. ?? Leave the rash open to the air. ?? If itching affects your normal activities, an pogf-teb-zxonhkn antihistamine, such as diphenhydramine (Benadryl) or loratadine (Claritin) may help. Read and follow all instructions on the label. When should you call for help? Call your doctor now or seek immediate medical care if: ?? Your rash gets worse and you have a fever. ?? You have new blisters or bruises, or the rash spreads and looks like a sunburn. ?? You have signs of infection, such as: ?? Increased pain, swelling, warmth, or redness. ?? Red streaks leading from the rash. ?? Pus draining from the rash. ?? A fever. ?? You have crusting or oozing sores. ?? You have joint aches or body aches along with your rash. Watch closely for changes in your health, and be sure to contact your doctor if: ?? Your rash does not clear up after 2 to 3 weeks of home treatment. ?? Itching interferes with your sleep or daily activities. Where can you learn more? Go to [employer] and enter I585 in the search box. ?? [id number] [employer]. Content Version: 9.1.923336; Last Revised: March 01, 2011 documented in this encounter Medications at [...] mouth at bedtime as needed for Pain. permethrin (AKA ELIMITE) 5 Apply topically. Apply head to toe (avoid eyes, nose, mouth), leave on for 8 hours before washing off. Repeat in 14 days. 60 g 0 02/26/2012 06/01/2013 % cream documented as of this encounter ED Notes Yanira Barajas RN - 02/26/2012 11:22 PM CDT [facility] ED Nursing Discharge Note Vital Signs: BP: 108/62 mmHg Temp: 99.3 ??F (37.4 ??C)Temp src: Oral Pulse: 71 Resp: 18 SpO2: 98 % Pain Scale (0-10): 6 Admission Date/Time: 02/26/2012 10:07 PM Attending MD: Lawson Abel Patient discharged: to Home. Patient accompanied by: friend. Transported by: Walked Valuables were taken home by patient: Yes Work/School Slip given: No Discharge instructions given and explained to patient: Yes Discharge prescriptions given to patients: Yes: New Prescriptions DIPHENHYDRAMINE (AKA BENADRYL) 25 MG CAPSULE Take 1-2 Caps by mouth every 6 hours as needed for Itching. HYDROCODONE-ACETAMINOPHEN (NORCO) 5-325 MG TABLET Take 1-2 Tabs by mouth at bedtime as needed for Pain. PERMETHRIN (AKA ELIMITE) 5 % CREAM Apply topically. Apply head to toe (avoid eyes, nose, mouth), leave on for 8 hours before washing off. Repeat in 14 days. Patient verbalized understanding. Yes Patient level of pain on discharge: 0 Patients condition on discharge related to chief complaint and treatment in ED: pt's condition stable ---End of Report--- Karla Arias RN - 02/26/2012 10:40 PM CDT Late entry: Pt with reddened raised areas, some with scabs in center. C/o itching. Sx present x 2 days. Medicated as per order. Lawson Abel MD - 02/26/2012 10:09 PM CDT [facility] Emergency Department Visit Note Chief Complaint: HIVES--ED HPI Keyla Porter is a 21 yr old female who presents to the Emergency Department for evaluation of hives. Two nights ago, patient developed painful, pruritic hives to hands, arms, face, back, stomach, legs. She tried using neosporin, calamine lotion, peroxide, alcohol without relief. She reports onset while staying at a friend's house - no friends have similar symptoms. She denies recent change in laundry detergent. Patient is 7 weeks, 3 days . The patient has no other medical complaints or concerns at this time. History obtained from the patient. Meds: Outpatient prescriptions as of 02/26/2012: acetaminophen (AKA TYLENOL EXTRA STRENGTH) 500 MG tablet Take 2 Tabs by mouth every 6 hours as needed for Pain. ACETAMINOPHEN-CODEINE #3 300-30 MG OR TABS Take 1-2 tablets by mouth every 4-6 hours as needed for pain. DEPO-PROVERA 150 MG/ML IM SUSP 150 mg given in clinic today diphenhydramine (AKA BENADRYL) 25 MG capsule Take 2 Caps by mouth every 6 hours as needed for Itching. guaifenesin (AKA MUCINEX) 600 MG 12 hour release tablet Take 2 Tabs by mouth two times a day. ibuprofen (AKA MOTRIN) 600 MG tablet Take 1 Tab by mouth every 6 hours as needed for Pain. IBUPROFEN 600 MG OR TABS take 1 tab every 4-6 hrs prn pain METHERGINE 0.2 MG OR TABS take 1 tab tid x 3 days predniSONE (AKA DELTASONE) 50 MG tablet Take 1 Tab by mouth daily. Allergies:Food PMH: Past Medical History Diagnosis Date ??? [place] ??? UTI ??? Endometriosis ??? Heart murmur Past Surgical History Procedure Date ??? Laparoscopy procedure endometriosis History Substance Use Topics ??? Smoking status: Current Everyday Smoker -- 0.5 packs/day Types: Cigarettes ??? Smokeless tobacco: Not on file ??? Alcohol Use: No No family history on file. Review of Systems See HPI. Remainder of 10 point ROS is negative unless otherwise noted in HPI. Vital signs: BP 108/62 Pulse 71 Temp(Src) 99.3 ??F (37.4 ??C) (Oral) Resp 18 SpO2 98% Physical Exam Vital signs reviewed by Lawson Abel Consitutional: oriented x3, well-developed, well-nourished, no acute distress Head: normocephalic and atraumatic Eyes: conjunctiva clear, EOMI Mouth: moist mucous membranes Neck: supple, ROM intact Cardiovascular: normal rate, regular rhythm, no murmurs Chest/Pulmonary: clear, equal lung sounds bilaterally, no chest wall tenderness, effort normal, no respiratory distress Abdominal: soft, normal bowel sounds, no tenderness or guarding, no masses or organomegaly felt Musculoskeletal: ROM intact, normal extremities, no edema or erythema Neurological: speech clear, responds appropriately to questions Skin: warm, dry, good color, 1-2mm erythematous papules between multiple web spaces of hands, bilateral dorsal forearms, several similar papules on waistline, lower legs, lesions across back Interventions: 1. Vicodin 5/500mg, PO 2. Benadryl 50mg, PO ED Course: 10:16 PM The patient was seen and evaluated. 10:31 PM Vicodin 5/500mg and Benadryl 50mg were given. 11:00 PM I rechecked the patient. I discussed my clinical impression as well as recommendation for treatment. I discussed reasons to return to the ED. The patient is comfortable going home. 11:08 PM The patient will be dehydrated with Benadryl 25mg, 1-2 Q6H PRN itching, [place] 5/325mg, 1-2 QHS PRN pain, and Permethrin 5% cream, as directed. She is advised to follow up with her PCP or return to the ED for persistent symptoms. The patient verbalized understanding and agrees with the plan. Medical Decision Makin yr old female presents to ED with complaint of hives throughout body that were painful and itching. Upon exam, patient's symptoms seemed consistent with scabies. Was given Vicodin and Benadryl with relief of her pain and itching. Assessment: 1. Scabies (133.0) 2. Itching (698.9E) Plan: The patient will be dehydrated with Benadryl 25mg, 1-2 Q6H PRN itching, [place] 5/325mg, 1-2 QHS PRN pain, and Permethrin 5% cream, as directed. She is advised to follow up with her PCP or return to the ED for persistent symptoms. The patient verbalized understanding and agrees with the plan. Condition on disposition: Stable This document serves as a record of services personally performed by No att. providers found. It wascreated on his/her behalf by Amrita Cleveland, a trained medical attendant. The creation of this record is based on the scribe's personal observations and the provider's statements to her. The document has been checked and approved by the attending provider. Jessica Gauthier RN - 02/26/2012 10:07 PM CDT Patient presents to ER with c/o hives all over body x 2 days. Patient with raised red areas over legs arms torso. Rash does not appear to be on face. Patient denies SOB No wheezing noted O2 Sat 100%. Patient has similar event in November. Unknown allergen. Patient is . documented in this encounter Miscellaneous Notes Media - [employer], PROVIDER - 02/28/2012 11:19 PM CDT documented in this encounter Plan of Treatment Not on filedocumented as of this encounter Visit Diagnoses Diagnosis Scabies - Primary Itching Unspecified pruritic disorder documented in this encounter Administered Medications Inactive Administered Medications - up to 3 most recent administrations Medication Order MAR Action Action Date Dose Rate Site diphenhydramine (aka BENADRYL) Given 02/26/2012 10:28 PM CDT 50 mg caplet 50 mg 50 mg, Oral, ONCE, On 02/26/12 at 2221, For 1 dose HYDROcodone-acetaminophen (aka NORCO) Given 02/26/2012 10:29 PM CDT 1 Tablet 5-325 MG tablet TABS 1 Tab 1 Tablet, Oral, ONCE, On 02/26/12 at 2221, For 1 dose, Caution: Look-alike, sound-alike medication. documented in this encounter Active and Recently Administered Medications Times are shown in CDT. Scheduled Medication Order 02/24/2012 02/25/2012 02/26/2012 diphenhydramine (aka BENADRYL) caplet 50 mg (COMPLETED) 2228 (Given - Provider: Karla Arias RN) 50 mg, Oral, ONCE, On 02/26/12 at 2221, For 1 dose HYDROcodone-acetaminophen (aka NORCO) 5-325 MG tablet TABS 1 Tab (COMPLETED) 2229 (Given - Provider: Karla Arias RN) 1 Tablet, Oral, ONCE, On 02/26/12 at 2 221, For 1 dose, Caution: Look-alike, sound-alike medication. documented in this encounter Care Teams Television Production Clerk Relationship Specialty Start Date End Date No Primary/Referring, Phy PCP - General 02/26/12 documented as of this encounter
--- OUTSIDE RECORDS SUMMARY | 2022-08-31 22:23 | XMS_ITS | Encounter Summary ---
:1990 Author Organization [place] Address [address] [place] [address] Care Team Providers Name Role Phone Holland Thomas MD Primary Care Provider [phone] Reason for Visit Reason Comments Eye Pain Hives Encounter Details Date Type Department Care Team Description 07/13/2020 Emergency [facility], [facility] zos ter without [facility] MD Neville complication Emergency Room EMERGENCY CARE [address] [facility] [place] [address] [facility] [address] [phone] [place], [place] [id number] Social History Tobacco Use Types Packs/Day Years Used Date Smoking Tobacco: Every Day Cigarettes 0.1 Smokeless Tobacco: Never Comments: smoking 10cig/day- down to 1-2 with Alcohol Use Standard Drinks/Week Comments Yes 0 (1 standard drink = 0.6 oz pure alcoho l) 3 times a month Sex Assigned at Date Recorded Not on file documented as of this encounter Last Filed Vital Signs Vital Sign Reading Time Taken Comments Blood Pressure - - Pulse - - Temperature - - Respiratory Rate - - Oxygen Saturation - - Inhaled Oxygen Concentration - - Weight 81.6 kg (180 lb) 07/13/2020 9:52 AM CDT Height - - Body Mass Index 28.19 05/28/2020 10:10 PM CDT documented in this encounter Medications at Time of Discharge Medication Sig Dispensed Refills Start Date End Date ibuprofen (ADVIL/MOTRIN) Take 1 tablet (600 60 tablet 0 05/2018 600 MG tabletIndications: mg) by mouth 3 times Chronic midline low back daily pain without sciatica tiZANidine (ZANAFLEX) 2 MG Take 1 tablet (2 mg) 14 tablet 0 04/27/2018 tabletIndications: Chronic by mouth every 6 midline low back pain hours as needed for without sciatica muscle spasms venlafaxine (EFFEXOR-ER) Take 1 tablet (75 mg) 30 each 1 04/28/2018 75 MG TB24 24 hr by mouth daily tabletIndications: Depression with anxiety documented as of this encounter ED Notes Neville Villagran MD - 07/13/2020 10:06 AM CDT EMERGENCY DEPARTMENT ENCOUNTER ED Course & Medical Decision Making 10:07 AM I met with the patient to gather history and perform an initial exam. The patient was masked and I was wearing PPE including gloves, N95 mask, and eye protection. Final Impression 29 y.o. female presents for evaluation of right-sided facial pain. On exam, has multiple clusters ofvesicular lesions with slight crusting, appears consistent with shingles. Does report that she did have chickenpox x2 as a child. Patient seen in this ED yesterday for some right-sided jaw pain, thoughdid not have any skin lesions at that time, had significant tenderness over her right parotid gland,ultimately covered for parotitis and discharged with Augmentin and pain medication. Patient returns today stating that since yesterday evening she has developed several small patches of blisters on theright portion of her forehead, into her hairline and severe right eye pain. Vincent lamp and fluorescein stain of right eye does not show any dendritic lesions or corneal abrasions. Pain significant improved with proparacaine drops. Will start on valacyclovir, recommend ophthalmology follow-up. Potential complications and return precautions discussed at bedside with patient. Will discharge home. Prior to making a final disposition on this patient the results of patient's tests and other diagnostic studies were discussed with the patient. All questions were answered. Patient expressed understanding of the plan and was amenable to it. Medications proparacaine 0.5 % ophthalmic solution 2 drop (ALCAINE) (has no administration in time range) fluorescein ophthalmic strip 1 strip (for [id number]) (has no administration in time range) Final Impression 1. Herpes zoster without complication Chief Complaint Chief Complaint Patient presents with ??? Eye Pain ??? Urticaria Seen in ED yesterday for right sided arm pain. Diagnosed with salivary gland swelling and dischargedwith antibiotics and pain medications. Returns today with increased pain in her right right eye and a rash on the right side of her face and scalp that itches. DERECK Porter is a 29 y.o. female who presents for evaluation of rash and eye pain. Per chart review, The patient was seen in the ED yesterday for right ear pain radiating to her jaw, eye, and behind the ear. Her pain was localized to the parotid gland and was attributed to sialadenitis or salivary duct stone. She was given dilaudid and toradol in the ED. She was discharged in stable condition with prescription for augmentin and [place]. Per Patient, The patient reports she initially developed a blistered rash to right side of her hairline two days ago. Since she was last seen in the ED yesterday, the blistered rash has extended down into the forehead and into the scalp on the right side. She continues to complain of right eye pain and swelling aswell as right sided jaw pain. She has taken one dose of Augmentin, [place], and Reglan since she was last in the ED. She had one right sided nosebleed as well with associated right sided sinus pain. Denies any other complaints at this time. I, Angeles Bearden am serving as a scribe to document services personally performed by Dr. Neville Villagran MD, based on my observation and the provider's statements to me. I, Dr. Neville Villagran MD attest that Angeles Bearden is acting in a scribe capacity, has observed my performance of the services and has documented them in accordance with my direction. Past Medical History Past Medical History: Diagnosis Date ??? Abnormal Pap smear of cervix 2011 ??? Allergic ??? Anemia ??? Anxiety ??? Depression ??? Endometriosis ??? Endometriosis ??? Kidney stone ??? Malignant hyperthermia due to anesthesia ??? Migraine ??? PID (pelvic inflammatory disease) ??? depression 2011 ??? Urinary tract infection ??? Varicella Past Surgical History: Procedure Laterality Date ??? SECTION N/A 11/17/2016 Procedure: SECTION; Surgeon: Holland Thomas MD; Location: [facility] [place]; Service: ??? COLPOSCOPY 2011 ??? ENDOMETRIAL ABLATION during one of the laparotomies ??? EXPLORATORY LAPAROTOMY 3x - last in 10/2015, 2010, Gyne surgeon in 2015 states no contraindication to vaginal per patient ??? IUD removal 11/13/2015 laproscopic procedure ??? LAPAROSCOPIC HYSTERECTOMY N/A 12/21/2017 Procedure: ROBOTC TOTAL LAPAROSCOPIC HYSTERECTOMY, BILATERAL SALPINGECTOMY ; [place]geon: [place] Thomas MD; [place] [facility] [place]: ??? [place] LAP,FULGURATE/EXCISE LESIONS Right 03/25/2017 Procedure: LAPAROSCOPY, OVARIAN CYSTECTOMY; Surgeon: Holland Thomas MD; Location: [facility]; Service: Gynecology Family History Problem Relation Age of Onset ??? Arthritis Mother ??? Depression Mother ??? Drug abuse Mother ??? Mental illness Mother ??? Stroke Father ??? Early Father ??? Mental illness Sister ADHD and anger issues ??? Alcohol abuse Maternal Aunt ??? Drug abuse Maternal Aunt ??? Hypertension Maternal Aunt ??? Kidney disease Maternal Aunt ??? Early Paternal Uncle ??? Stroke Paternal Uncle ??? Heart disease Maternal Grandmother ??? Hearing loss Maternal Grandmother ??? Arthritis Maternal Grandmother ??? Dementia Maternal Grandfather ??? Hypertension Maternal Grandfather ??? Diabetes Paternal Grandmother ??? Hypertension Paternal Grandmother ??? Arthritis Paternal Grandfather ??? Asthma Paternal Grandfather ??? Cancer Paternal Grandfather ??? Depression Paternal Grandfather ??? Hearing loss Paternal Grandfather ??? Stroke Paternal Grandfather Social History Tobacco Use ??? Smoking status: Former Smoker Last attempt to quit: 03/14/2019 Years since quittin.3 ??? Smokeless tobacco: Never Used Substance Use Topics ??? Alcohol use: No ??? Drug use: No Relevant past medical, surgical, family and social history as documented above, has been reviewed and discussed with patient. No changes or additions, unless otherwise noted in the HPI. Current Medications Current Discharge Medication List START taking these medications Details valACYclovir (VALTREX) 1000 MG tablet Take 1 tablet (1,000 mg total) by mouth 3 (three) times a day for 7 days. Qty: 21 tablet, Refills: 0 Associated Diagnoses: Herpes zoster without complication CONTINUE these medications which have NOT CHANGED Details amoxicillin-clavulanate (AUGMENTIN) 875-125 mg per tablet Take 1 tablet by mouth every 12 (twelve) hours for 7 days. Qty: 14 tablet, Refills: 0 Associated Diagnoses: Sialadenitis cyclobenzaprine (FLEXERIL) 10 MG tablet Take 1 tablet (10 mg total) by mouth 2 (two) times a day as needed for muscle spasms. Qty: 20 tablet, Refills: 0 Associated Diagnoses: Lumbosacral radiculopathy at L4 ferrous sulfate 325 (65 FE) MG tablet Take 1 tablet by mouth daily with breakfast. gabapentin (NEURONTIN) 300 MG capsule Take 1 capsule (300 mg total) by mouth 3 (three) times a day. Qty: 21 capsule, Refills: 0 Associated Diagnoses: Lumbosacral radiculopathy at L4 HYDROcodone-acetaminophen 5-325 mg per tablet Take 1 tablet by mouth every 4 (four) hours as needed for pain. Qty: 10 tablet, Refills: 0 Associated Diagnoses: Sialadenitis ibuprofen (ADVIL,MOTRIN) 600 MG tablet Take 1 tablet (600 mg total) by mouth every 6 (six) hours as needed for pain. Qty: 30 tablet, Refills: 0 Associated Diagnoses: Pharyngitis due to Streptococcus species !! metoclopramide (REGLAN) 10 MG tablet Take 1 tablet (10 mg total) by mouth every 6 (six) hours. Qty: 30 tablet, Refills: 0 Associated Diagnoses: Sialadenitis !! metoclopramide (REGLAN) 10 MG tablet Take 1 tablet (10 mg total) by mouth every 6 (six) hours as needed for nausea. Qty: 30 tablet, Refills: 0 Associated Diagnoses: Migraine with aura and with status migrainosus, not intractable ondansetron (ZOFRAN ODT) 4 MG disintegrating tablet Take 1 tablet (4 mg total) by mouth every 8 (eight) hours as needed. Qty: 15 tablet, Refills: 0 Associated Diagnoses: Right lower quadrant abdominal pain oxyCODONE (ROXICODONE) 5 MG immediate release tablet Take 1 tablet (5 mg total) by mouth every 6 (six) hours as needed for pain. Qty: 10 tablet, Refills: 0 Associated Diagnoses: Right lower quadrant abdominal pain SUMAtriptan (IMITREX) 50 MG tablet Take 1 tablet (50 mg total) by mouth once as needed for migraine.May repeat after 2 hours X 1 if incomplete relief. Qty: 10 tablet, Refills: 0 Associated Diagnoses: Migraine with aura and with status migrainosus, not intractable !! - Potential duplicate medications found. Please discuss with provider. Allergies Allergies Allergen Reactions ??? Blood-Group Specific Substance Other (See Comments) Warm autoantibodies present. Blood for transfusion will be delayed. Draw 3 lavender and 1 red tube for type and screen orders. ??? Morphine Nausea And Vomiting and Myalgia Nerve pain Review of Systems Constitutional: Denies fever, chills Eyes: Denies visual changes or eye discharge. Positive for right eye pain and swelling. HENT: Positive for right sided jaw pain and nosebleed. Respiratory: Denies cough GI: Denies nausea, vomiting Skin: Denies wound. Positive for blistered rash to scalp and forehead. Neurologic: Denies current headache, new weakness, focal weakness, or sensory changes Remainder of systems reviewed, unless noted in HPI all others negative. Physical Exam BP 146/78 (Patient Position: Sitting) Pulse 76 Temp 98.4 ??F (36.9 ??C) Resp 14 Wt 180 lb (81.6 kg) LMP 01/14/2017 (Exact Date) SpO2 98% BMI 28.19 kg/m?? Constitutional: Awake, alert, in no acute distress Head: Atraumatic. ENT: Mucous membranes moist. Eyes: PERRL, EOMI. Endorses pain with constriction of right pupil. Moderate conjunctival injection of the Right eye. No dendritic lesions or other corneal abrasions seen with fluorescein staining and Vincent lamp of the right eye. Respiratory: Respirations even, unlabored, in no acute respiratory distress. Cardiovascular: Regular rate and rhythm. Musculoskeletal: Moves all 4 extremities equally, strength symmetrical on bilateral uppers and lowers. Integument: Approximately 12 scattered clusters of vesicular lesions throughout right side of face in the V1 distribution, exquisitely tender to touch. Solitary crusting lesions seen in the right ear canal. No lesions on tip of nose. Neurologic: Alert & oriented x 3. Normal speech. Grossly normal motor and sensory function. Procedures PROCEDURE: WOOD'S LAMP INDICATIONS: Eye pain PROCEDURE PROVIDER: Dr Villagran SITE: right eye MEDICATION: Alcaine (Proparcaine) was applied by this physician to right eye. NOTE: right eye exam: No dendritic lesions COMPLICATIONS: None Neville Villagran MD 07/13/20 1100 Arpita Kenney RN - 07/13/2020 9:48 AM CDT Seen in ED yesterday for right sided arm pain. Diagnosed with salivary gland swelling and dischargedwith antibiotics and pain medications. Returns today with increased pain in her right right eye and a rash on the right side of her face and scalp that itches. documented in this encounter Plan of Treatment Not on filedocumented as of this encounter Visit Diagnoses Diagnosis Herpes zoster without complication documented in this encounter Additional Health Concerns Assessment Noted Time PHQ-9 Depression Total Score: 19 09/04/2015 7:20 AM CD T documented as of this encounter Care Teams Dental Equipment Technician Relationship Specialty Start Date End Date Holland Thomas MD PCP - General prop sawyer 04/15/[address] [id number] documented as of this encounter
--- OUTSIDE RECORDS SUMMARY | 2022-08-31 22:23 | XMS_ITS | Encounter Summary ---
:1990 Author Organization [place] Address [facility] [place] [address] Care Team Providers Name Role Phone Holland Thomas MD Primary Care Provider [phone] Reason for Visit Reason Comments Shingles Encounter Details Date Type Department Care Team Description 07/14/2020 Communication - [facility] Kay Moore [facility] Scheduling RN [address] [place] [address] Social History Tobacco Use Types Packs/Day Years Used Date Smoking Tobacco: Every Day Cigarettes 0.1 Smokeless Tobacco: Never Comments: smoking 10cig/day- down to 1-2 with Alcohol Use Standard Drinks/Week Comments Yes 0 (1 standard drink = 0.6 oz pure alcoho l) 3 times a month Sex Assigned at Date Recorded Not on file documented as of this encounter Miscellaneous Notes Telephone Encounter - Kay Moore RN - 07/14/2020 9:39 AM CDT Keyla was into ED two days ago and diagnosed with shingles and is located near right eye and was told if pain does not get better to return. Pain is severe. Keyla states that she cannot afford medication that was prescribed and pain is severe. Keyla is going to return to ED. Denies fever cough and shortness of breath. COVID 19 Nurse Triage Plan/Patient Instructions Please be aware that novel coronavirus (COVID-19) may be circulating in the community. If you develop symptoms such as fever, cough, or SOB or if you have concerns about the presence of another infection including coronavirus (COVID- 19), please contact your health care provider or visit [email or web address]. Disposition/Instructions In-Person Visit with provider recommended. Reference Visit Selection Guide. Thank you for taking steps to prevent the spread of this virus. o Limit your contact with others. o Wear a simple mask to cover your cough. o Wash your hands well and often. Resources ??? [facility]: About COVID-19: [email or web address] ??? CDC: What to Do If You're Sick: www.cdc.gov/coronavirus/2019-ncov/about/ovsyk-mzem-loth.html ??? CDC: Ending Home Isolation: www.cdc.gov/coronavirus/2019-ncov/hcp/mulqyykgodx-eq-ggnv-patients.html ??? CDC: Caring for Someone: www.cdc.gov/coronavirus/2019-ncov/xh-iya-gut-sick/iwwu-krg-vylcizd.html ??? [facility]: Interim Guidance for Hospital Discharge to Home: www.health.[facility].in./diseases/coronavirus/hcp/hospdischarge.pdf ??? [facility] clinical trials (COVID-19 research studies): clinicalaffairs.[facility]/jmh-bwhpcrsg-fjnrsj ??? Below are the COVID-19 hotlines at the [facility] ([facility]). Interpreters are available. o For health questions: Call [phone] or (7 a.m. to 7 p.m.) o For questions about schools and childcare: Call [phone] or (7 a.m. to 7 p.m.) Additional Information ??? Negative: Difficult to awaken or acting confused (e.g., disoriented, slurred speech) ??? Negative: Sounds like a life-threatening emergency to the triager ??? Negative: Patient sounds very sick or weak to the triager ??? [1] Shingles rash (matches SYMPTOMS) AND [2] weak immune system (e.g., HIV positive, cancer chemotherapy, chronic steroid treatment, splenectomy) AND [3] NOT taking antiviral medication Protocols used: MECHE documented in this encounter Plan of Treatment Not on filedocumented as of this encounter Visit Diagnoses Not on filedocumented in this encounter Additional Health Concerns Assessment Noted Time PHQ-9 Depression Total Score: 19 09/04/2015 7:20 AM CD T documented as of this encounter Care Teams Clerical Assistant Relationship Specialty Start Date End Date Holland Thomas MD PCP - General informatics educator 04/15/[address] [address] documented as of this encounter
--- OUTSIDE RECORDS SUMMARY | 2022-08-31 22:23 | XMS_ITS | Encounter Summary ---
:1990 Author Organization [facility] Address [address] [place] [address] Care Team Providers Name Role Phone No Ref-Primary, Physician Primary Care Provider [phone] Reason for Visit Reason Comments Cough Nausea Encounter Details Date Type Department Care Team Description 01/25/2020 Emergency [facility] Influenza B Emergency Room [facility] [place] [address] [facility] [phone] Social History Tobacco Use Types Packs/Day Years [...] - - Weight 81.6 kg (180 lb) 01/25/2020 8:39 AM EMPLOYMENT CLERK Height - - Body Mass Index 28.23 12/27/2019 11:16 AM EMPLOYMENT CLERK documented in this encounter Medications at Time [...] documented as of this encounter ED Notes Ashley Ness - 01/25/2020 10:15 AM CST Back from radiology. No complaints OYMENT CLERK Ashley Ness - 01/25/2020 9:46 AM CST Transported to OYMENT CLERK Ashley Ness - 01/25/2020 8:37 AM CST States has had a cough for a couple of days. Today began feeling nauseated and went to bathroom, gotdizzy and found self on the floor. States that she felt very hot prior to nausea. Complaining of headache. Has not vomited but states she has been able to keep food and fluids down. Productive cough with dark yellow sputum. GCS 15 Sharon Kapadia - 01/25/2020 8:36 AM CST Emergency Department Encounter NAME: Keyla Porter ; AGE: 29 y.o. female ; DATE OF : 1990 ; ; EVALUATION DATE & TIME: 01/25/2020 8:35 AM ; PCP: Holland Thomas MD ED PROVIDER: Sharon Smith PA-C Chief Complaint Patient presents with ??? Cough ??? Nausea Medical Decision Making & Final Diagnosis 1. Influenza B Keyla is a previously healthy 29-year-old female with a past medical history of endometriosis status post hysterectomy who presents the emergency department for evaluation of syncope. 2 days ago she developed productive cough, nasal congestion, and surges of heat at night she attributes to fever. This morning she got up and experienced tunnel vision, diaphoresis, and severe nausea which prompted her to kneel in front of the toilet. She woke up shortly after alert and oriented feeling weak. Notes when she tried to stand after this it was challenging. Currently, she is also experiencing a mild bilateral headache. No history of recent travel, estrogen replacement, blood clot, family history of sudden cardiac , recent medication changes, or cardiac arrhythmia. I considered multiple diagnoses including but not limited to: Massive PE, atypical presentation of ACS, cardiac arrhythmia, vasovagal syncope, dehydration, hypotension, influenza, strep throat, retropharyngeal or peritonsillar abscess, electrolyte derangement, metabolic derangement, hypoglycemia, and other Exam: Notable for well-appearing woman with normal vital signs. Neurologic exam is intact including cranial nerves II through XII. Strength is 5 out of 5 and sensation intact light touch in all extremities normal heart and lung sounds. No abdominal tenderness to palpation. Bilateral tympanic membraneswithout purulent effusion, retraction, bulging, or erythema. TTP to percussion over right-sided maxillary sinus. Tonsils are 1+ and erythematous without exudate, uvular deviation, or trismus. Labs/EKG: EKG reveals normal sinus rhythm with a nonspecific T wave abnormality that is on concerning for acute ischemic changes. CBC, BMP, magnesium, troponin, and influenza testing are notable for noleukocytosis or anemia, normal electrolytes and magnesium, negative troponin, and positive influenzaB. Imaging: Chest x-ray reveals no evidence of acute infiltrate, spontaneous pneumothorax, enlarged cardiac silhouette, or bony abnormality Impression: Influenza B; syncope; I suspect the patient's episode of syncope was secondary to dehydration and hypotension reaction in the setting of acute febrile viral illness. Low suspicion of cardiac arrhythmia as the source of her syncope with no family history, unremarkable EKG, and alternative explanation. Low suspicion of atypical presentation of ACS with nonischemic EKG and negative troponin.No evidence of retropharyngeal or peritonsillar abscess on exam. Plan: Patient reported significant improvement in her symptoms with interventions given in the emergency department including fluids, Toradol, Benadryl, and Reglan. She was able to ambulate without difficulty or lightheadedness at the time of her discharge. I went over the results of the blood work and imaging with the patient at the bedside. Patient was given instructions for symptomatic care for home with Tylenol, ibuprofen, rest, and increase fluids. We discussed utility of Tamiflu at her age, with you and comorbidities, and almost 3 days into the onset of her symptoms and we shared decision-making to determine no need for Tamiflu administration at this time.. we reviewed strict return precautions that would merit further evaluation in the emergency department. Discussed the provisional natureof the diagnosis and need for close follow-up with primary care provider. Patient was given adequatetime to ask questions, received appropriate answers, and agrees with the plan as written. Critical Care: Not applicable ED Course 8:40 AM I met and introduced myself to the patient. I gathered initial history and performed my physical exam. We discussed plan for initial workup. 9:40 AM Influenza B positive. 10:00 AM Negative chest x-ray. 10:20 AM Patient rechecked and updated. I discussed the plan for discharge with the patient, and patient is agreeable. We discussed supportive cares at home and reasons for return to the ER including new or worsening symptoms - all questions and concerns addressed. Patient to be discharged by RN. MEDICATIONS GIVEN IN THE EMERGENCY: Medications sodium chloride 0.9% 1,000 mL (0 mL Intravenous Stopped 01/25/20 1031) ketorolac injection 15 mg (TORADOL) (15 mg Intravenous Given 01/25/20 0922) diphenhydrAMINE injection 25 mg (BENADRYL) (25 mg Intravenous Given 01/25/20 0924) metoclopramide injection 10 mg (REGLAN) (10 mg Intravenous Given 01/25/20 0925) NEW PRESCRIPTIONS STARTED AT TODAY'S ER VISIT: Discharge Medication List as of 01/25/2020 10:31 AM CONTINUE these medications which have NOT CHANGED Details ferrous sulfate 325 (65 FE) MG tablet Take 1 tablet by mouth daily with breakfast., Historical Med ibuprofen (ADVIL,MOTRIN) 600 MG tablet Take 1 tablet (600 mg total) by mouth every 6 (six) hours as needed for pain., Starting Tue08/10/2019, Normal metoclopramide (REGLAN) 10 MG tablet Take 1 tablet (10 mg total) by mouth every 6 (six) hours as needed for nausea., Starting Tue08/09/2019, Print SUMAtriptan (IMITREX) 50 MG tablet Take 1 tablet (50 mg total) by mouth once as needed for migraine.May repeat after 2 hours X 1 if incomplete relief., Starting Marizol 12/27/2019, Print History Patient information was obtained from: Patient Use of Intrepreter: N/A Keyla Porter is a 29 y.o. female with a relevant PMH of anxiety, depression, and cannabis use disorder, who presents to the ED for evaluation of cough and syncope. The patient reports the onset of a cough that began on 01/22 (2 days ago). Her cough has been productive with dark yellow sputum since yesterday. She has had associated rhinorrhea, diaphoresis, and fever. This morning, the patient developed nausea, hot flashes, and intermittent dizziness that began after she woke up. She went to the bathroom to vomit and she developed tunnel vision and she believes that she loss consciousness because the next thing she remembers is waking up on the floor. After regaining consciousness, the patient felt extremity numbness/tingling, weakness, and was tremulous. Patientknew where she was and was able to call to her significant other for help. Further, she has since developed a headache that she rates a 5/10 severity at this time. Her headache is worsened with certainhead movements and head positions. Her numbness has improved, however, she continues have tingling in her fingers. Patient denies sore throat, changes in vision, abdominal pain, vomiting, diarrhea, constipation, andblood in stool. Denies recent known sick contacts and recent travel. Patient takes daily iron supplements, otherwise, she denies regular medication use or changes to medication regimen. Patient has a history of hysterectomy; denies hormone replacement therapy. Denies history of blood clots and asthma.She has a family history of aneurysms and strokes (father). There are no other concerns or complaints at this time. Past Medical History: Diagnosis Date ??? Abnormal Pap smear of cervix 2011 ??? Allergic ??? Anemia ??? Anxiety ??? Depression ??? Endometriosis ??? Endometriosis ??? Kidney stone ??? Malignant hyperthermia due to anesthesia ??? Migraine ??? PID (pelvic inflammatory disease) ??? depression 2012 ??? Urinary tract infection ??? Varicella Past Surgical History: Procedure Laterality Date ??? SECTION N/A 11/17/2016 Procedure: SECTION; Surgeon: Holland Thomas MD; Location: [facility] L[facility]D OR; Service: ??? COLPOSCOPY 2011 ??? ENDOMETRIAL ABLATION during one of the laparotomies ??? EXPLORATORY LAPAROTOMY 3x - last in 10/2015, 2010, Gyne surgeon in 2014 states no contraindication to vaginal per patient ??? IUD removal 11/13/2015 laproscopic procedure ??? LAPAROSCOPIC HYSTERECTOMY N/A 12/21/2017 Procedure: ROBOTC TOTAL LAPAROSCOPIC HYSTERECTOMY, BILATERAL SALPINGECTOMY ; Surgeon: Holland Thomas MD; Location: [facility]; Service: ??? VT LAP,FULGURATE/EXCISE LESIONS Right 03/25/2017 Procedure: LAPAROSCOPY, OVARIAN CYSTECTOMY; Surgeon: Holland Thomas MD; Location: [facility] OR; Service: Gynecology Family History Problem Relation Age [...] Last attempt to quit: 03/14/2019 Years since quittin.8 ??? Smokeless tobacco: Never Used Substance Use Topics ??? Alcohol use: No ??? Drug use: No REVIEW OF SYSTEMS: Review of Systems Constitutional: Positive for diaphoresis and fever. HENT: Positive for rhinorrhea. Negative for sore throat. Eyes: Positive for visual disturbance (tunnel vision (resolved)). Respiratory: Positive for cough (productive). Gastrointestinal: Positive for nausea. Negative for abdominal pain, blood in stool, constipation, diarrhea and vomiting. Neurological: Positive for syncope, weakness and numbness. All other systems reviewed and are negative. Physical Exam BP 114/73 Pulse 75 Temp 98.5 ??F (36.9 ??C) (Oral) Resp 20 Wt 180 lb (81.6 kg) LMP 01/14/2017 (Exact Date) SpO2 97% BMI 28.23 kg/m?? Physical Exam Constitutional: She is oriented to person, place, and time. She appears well- developed and well-nourished. No distress. HENT: Head: Normocephalic and atraumatic. Right Ear: Tympanic membrane is not erythematous, not retracted and not bulging. Left Ear: Tympanic membrane is not erythematous, not retracted and not bulging. Mouth/Throat: Oropharynx is clear and moist. TTP to percussion over right-sided maxillary sinus. Tonsils are 1+ and erythematous without exudate,uvular deviation, or trismus. Eyes: Pupils are equal, round, and reactive to light. Conjunctivae and EOM are normal. Neck: Normal range of motion. Neck supple. Cardiovascular: Normal rate, regular rhythm, normal heart sounds and intact distal pulses. Pulmonary/Chest: Effort normal and breath sounds normal. No respiratory distress. She has no wheezes. She has no rales. Abdominal: Soft. She exhibits no distension. There is no abdominal tenderness. There is no rebound and no guarding. Musculoskeletal: Normal range of motion. General: No deformity or edema (bilateral lower extremities). Neurological: She is alert and oriented to person, place, and time. She has normal strength. No cranial nerve deficit or sensory deficit. Coordination (Normal afkqmf-xcuj-pwsyny bilaterally) normal. Cranial nerves II through XII are grossly intact. No facial asymmetry. No speech abnormality. Strength is 5 out of 5 in bilateral upper and lower extremities. No pronator drift. Sensation intact to light touch in bilateral upper and lower extremities. Cerebellar function intact to [id number]-bn-bobq testing. Skin: Skin is warm and dry. Psychiatric: She has a normal mood and affect. Judgment normal. Nursing note and vitals reviewed. Lab Work (Reviewed and Interpreted): Results for orders placed or performed during the hospital encounter of 01/25/20 Influenza A/B Rapid Test Result Value Ref Range Influenza A, Rapid Antigen No Influenza A antigen detected No Influenza A antigen detected Influenza B, Rapid Antigen Influenza B antigen detected (!) No Influenza B antigen detected Basic metabolic panel Result Value Ref Range Sodium 136 136 - 145 mmol/L Potassium 3.9 3.5 - 5.0 mmol/L Chloride 106 98 - 107 mmol/L CO2 21 (L) 22 - 31 mmol/L Anion Gap, Calculation 9 5 - 18 mmol/L Glucose 93 70 - 125 mg/dL Calcium 8.8 8.5 - 10.5 mg/dL BUN 9 8 - 22 mg/dL Creatinine 0.81 0.60 - 1.10 mg/dL GFR MDRD Af Amer >60 >60 mL/min/1.73m2 GFR MDRD Non Af Amer >60 >60 mL/min/1.73m2 Magnesium Result Value Ref Range Magnesium 1.9 1.8 - 2.6 mg/dL CBC Result Value Ref Range WBC 5.7 4.0 - 11.0 thou/uL RBC 4.40 3.80 - 5.40 mill/uL Hemoglobin 13.5 12.0 - 16.0 g/dL Hematocrit 39.7 35.0 - 47.0 % MCV 90 80 - 100 fL MCH 30.7 27.0 - 34.0 pg MCHC 34.0 32.0 - 36.0 g/dL RDW 12.4 11.0 - 14.5 % Platelets 177 140 - 440 thou/uL MPV 9.5 8.5 - 12.5 fL Troponin I Result Value Ref Range Troponin I 0.02 0.00 - 0.29 ng/mL Imaging (Reviewed and Interpreted): Xr Chest 2 Views Result Date: 01/25/2020 EXAM: XR CHEST 2 VIEWS LOCATION: [facility] DATE/TIME: 01/25/2020 9:51 AM INDICATION: syncope;productive cough COMPARISON: None. Normal two-view chest. EKG (Reviewed and Interpreted): EKG results reviewed and interpreted by Dr. Tatiana ED MD. Time: 09:01 Rate: 78 bpm QRS: 90 ms QTC: 426 ms Abnormal ECG. Normal sinus rhythm. Nonspecific T-wave abnormality. No previous available for comparison. PROCEDURES: N/A Memo Gonzalez, am serving as a scribe to document services personally performed by Sharon Smith PA-C, based on my observation and the provider's statements to me. ISharon PA-C attest that Memo Barbour is acting in a scribe capacity, has observed my performance of the services and has documented them in accordance with my direction. Sharon Smith PA-C Emergency Medicine [facility] EMERGENCY DEPARTMENT [address] [facility] [address] Dept: [phone] Loc: [phone] Sharon Smith PA-C 01/25/20 9025 OYMENT CLERK documented in this encounter Plan of Treatment Not on filedocumented as of this encounter Procedures Procedure Name Priority Date/Time Associated Diagnosis Comme nts XR CHEST 2 VIEWS Routine 01/25/2020 9:51 AM Resul ts for this EMPLOYMENT CLERK procedure are i n the results section. TROPONIN I STAT 01/25/2020 9:13 AM Results f or this EMPLOYMENT CLERK procedure are i n the results section. MAGNESIUM STAT 01/25/2020 9:13 AM Results f or this EMPLOYMENT CLERK procedure are i n the results section. BASIC METABOLIC STAT 01/25/2020 9:13 AM Result s for this PANEL EMPLOYMENT CLERK procedure are i n the results section. CBC WITH PLATELETS STAT 01/25/2020 9:13 AM Res ults for this EMPLOYMENT CLERK procedure are i n the results section. INFLUENZA A/B STAT 01/25/2020 9:07 AM Results for this ANTIGEN EMPLOYMENT CLERK procedure are i n the results section. EKG 12-LEAD, STAT 01/25/2020 8:55 AM Results f or this TRACING ONLY EMPLOYMENT CLERK procedure are i n the results section. documented in this encounter Results XR Chest 2 Views (01/25/2020 9:51 AM EMPLOYMENT CLERK) Anatomical Region Laterality Modality Chest Digital Radiography Specimen (Source) Anatomical Location Collection Method / Collectio n Time Received Time / Laterality Volume Impressions 01/25/2020 9:56 AM EMPLOYMENT CLERK Normal two-view chest. Narrative 01/25/2020 9:56 AM EMPLOYMENT CLERK EXAM: XR CHEST 2 VIEWS LOCATION: [facility] DATE/TIME: 01/25/2020 9:51 AM INDICATION: syncope; productive cough COMPARISON: None. Procedure Note Holland Rico MD - 04/30/2021Format ting of this note might be different from the original. EXAM: XR CHEST 2 VIEWS LOCATION: [facility] DATE/TIME: 01/25/2020 9:51 AM INDICATION: syncope; productive cough COMPARISON: None. IMPRESSION: Normal two-view chest. Sharon Smith PA-C IMG DIAGNOSTIC IMAGING ORDER SUBHA Troponin I (01/25/2020 9:13 AM EMPLOYMENT CLERK) athologist Signature Troponin I 0.02 0.00 - 0.29 01/25/2020 [facility] ng/mL 9:46 AM EMPLOYMENT CLERK [facility] Specimen Anatomical Collection Method Collection Time Receive d Time (Source) Location / / Volume Laterality Blood specimen STRUCTURE OF RIGHT VAD(CVC, PICC) / 01/25/2020 9:13 AM 01/25/2020 9:16 (specimen) UPPER LIMB / Unknown EMPLOYMENT CLERK AM EMPLOYMENT CLERK Unknown Sharon Smith PA-C LAB - BLOOD ORDERABLES Performing Organization Address City/State/ZIP Code Phon e Number [place] [address] [facility] [address] [address] [place] [address] LABORATORY CBC with platelets (01/25/2020 9:13 AM EMPLOYMENT CLERK) athologist Signature WBC 5.7 4.0 - 11.0 01/25/2020 HEALTH thou/uL 9:20 AM EMPLOYMENT CLERK [facility] RBC Count 4.40 3.80 - 01/25/2020 HEALTH 5.40 9:20 AM EMPLOYMENT CLERK [facility] mill/uL [facility] Hemoglobin 13.5 12.0 - 01/25/2020 HEALTH 16.0 g/dL 9:20 AM EMPLOYMENT CLERK [facility] Hematocrit 39.7 35.0 - 01/25/2020 HEALTH 47.0 % 9:20 AM [facility] MCV 90 80 - 100 01/25/2020 HEALTH fL 9:20 AM [facility] MCH 30.7 27.0 - 01/25/2020 M [facility] 34.0 pg 9:20 AM [facility] MCHC 34.0 32.0 - 01/25/2020 HEALTH 36.0 g/dL 9:20 AM [facility] RDW 12.4 11.0 - 01/25/2020 M [facility] 14.5 % 9:20 AM [facility] Platelet Count 177 140 - 440 01/25/2020 HEALTH thou/uL 9:20 AM [facility] Mean Platelet 9.5 8.5 - 12.5 01/25/2020 HEALTH Volume fL 9:20 AM [facility] Specimen Anatomical Collection Method Collection Time Receive d Time (Source) Location / / Volume Laterality Blood specimen STRUCTURE OF RIGHT VAD(CVC, PICC) / 01/25/2020 9:13 AM 01/25/2020 9:16 (specimen) UPPER LIMB / Unknown EMPLOYMENT CLERK AM EMPLOYMENT CLERK Unknown Sharon Smith PA-C LAB - BLOOD ORDERABLES Performing Organization Address City/State/ZIP Code Phon e Number [facility] [place] [address] [place] [address] [place] [address] LABORATORY Magnesium (01/25/2020 9:13 AM EMPLOYMENT CLERK) athologist Signature Magnesium 1.9 1.8 - 2.6 01/25/2020 HEALTH mg/dL 9:42 AM [facility] Specimen Anatomical Collection Method Collection Time Receive d Time (Source) Location / / Volume Laterality Blood specimen STRUCTURE OF RIGHT VAD(CVC, PICC) / 01/25/2020 9:13 AM 01/25/2020 9:16 (specimen) UPPER LIMB / Unknown EMPLOYMENT CLERK AM EMPLOYMENT CLERK Unknown Sahron Smith PA-C LAB - BLOOD ORDERABLES Performing Organization Address City/State/ZIP Code Phon e Number [facility] [place] [address] Lab [address] [place] [address] [facility] [place] [address] LABORATORY (ABNORMAL) Basic metabolic panel (01/25/2020 9:13 AM EMPLOYMENT CLERK) athologist Signature Sodium 136 136 - 145 01/25/2020 HEALTH mmol/L 9:39 AM [facility] Potassium 3.9 3.5 - 5.0 01/25/2020 HEALTH mmol/L 9:39 AM [facility] Chloride 106 98 - 107 01/25/2020 HEALTH mmol/L 9:39 AM [facility] Carbon Dioxide 21 (L) 22 - 31 01/25/2020 M [facility] (CO2) mmol/L 9:39 AM [facility] Anion Gap 9 5 - 18 01/25/2020 HEALTH mmol/L 9:39 AM [facility] Glucose 93 70 - 125 01/25/2020 HEALTH mg/dL 9:39 AM [facility] Calcium 8.8 8.5 - 10.5 01/25/2020 HEALTH mg/dL 9:39 AM [facility] Urea Nitrogen 9 8 - 22 01/25/2020 HEALTH mg/dL 9:39 AM [facility] Creatinine 0.81 0.60 - 01/25/2020 HEALTH 1.10 mg/dL 9:39 AM [facility] GFR Estimate If >60 >60 01/25/2020 M HEALTH Black mL/min/1.7 9:[address] LABORATORY GFR Estimate >60 >60 01/25/2020 HEALTH mL/min/1.7 9:[address] LABORATORY Specimen Anatomical Collection Method Collection Time Receive d Time (Source) Location / / Volume Laterality Blood specimen STRUCTURE OF RIGHT VAD(CVC, PICC) / 01/25/2020 9:13 AM 01/25/2020 9:16 (specimen) UPPER LIMB / Unknown EMPLOYMENT CLERK AM EMPLOYMENT CLERK Unknown Narrative [facility] - 01/25/2020 9:39 AM EMPLOYMENT CLERK Fasting Glucose reference range is 70-99 mg/dL per [place] [employer] (ADA) [employer]az[employer]in [employer]. Sharon Smith PA-C LAB - BLOOD ORDERABLES Performing Organization Address [facility] Phon e Number [facility] [place] [address] [place] [facility] [address] [place] [address] [facility] [place] [address], [facility] (ABNORMAL) Influenza A & B Antigen (01/25/2020 9:07 AM EMPLOYMENT CLERK) [facility] jaeyos Method Time Signature Influenza A No Influenza No Influenza 01/25/2020 [facility] antigen A antigen A antigen 9:38 AM EMPLOYMENT CLERK [facility] detected detected [facility] Influenza B Influenza B No Influenza 01/25/2020 M [facility] antigen antigen B antigen 9:38 AM EMPLOYMENT CLERK [facility] detected (A) detected [facility] Specimen Anatomical Location / Collection Method Collection Jacobo e Received Time (Source) Laterality / Volume Swab (specimen) NASOPHARYNGEAL 01/25/2020 9:07 03//2 020 9:16 STRUCTURE / Unknown AM EMPLOYMENT CLERK AM EMPLOYMENT CLERK Narrative [facility] - 01/25/2020 9:38 AM EMPLOYMENT CLERK A negative result does not exclude an in fluenza infection. ??FluMist ? ? will cause false positive results. Sharon Smith PA-C LAB - MICRO GENERAL ORDERABL ES Performing Organization Address [facility] Phon e Number [facility] [place] [address] [place] [facility] [address] [address] [place] [address] [facility] [place] [address], [facility] EKG 12-lead, tracing only (01/25/2020 8:55 AM EMPLOYMENT CLERK) [facility] jaeyos Method Time Signature Systolic Blood 01/28/2020 HE RADIANT Pressure 1:16 PM CONVERSION CDT Diastolic Blood 01/28/2020 HE RADIANT Pressure 1:16 PM CONVERSION CDT Ventricular Rate 78 BPM 01/28/2020 HE RADIANT 1:16 PM CONVERSION CDT Atrial Rate 78 BPM 01/28/2020 HE RADIANT 1:16 PM CONVERSION CDT VT Interval 152 ms 01/28/2020 HE RADIANT 1:16 PM CONVERSION CDT QRS Duration 90 ms 01/28/2020 HE RADIANT 1:16 PM CONVERSION CDT QT 374 ms 01/28/2020 HE RADIANT 1:16 PM CONVERSION CDT QTc 426 ms 01/28/2020 HE RADIANT 1:16 PM CONVERSION CDT P [place] 62 degrees 01/28/2020 HE RADIANT 1:16 PM CONVERSION CDT R AXIS -20 degrees 01/28/2020 HE RADIANT 1:16 PM CONVERSION CDT T [place] 12 degrees 01/28/2020 HE RADIANT 1:16 PM CONVERSION CDT Interpretation Normal sinus rhythm 01/28/2020 HE R ADIANT ECG Nonspecific T wave abnormality 1:16 PM CONVERSION Abnormal ECG CDT No previous ECGs available Confirmed by SEE ED PROVIDER NOTE FOR, ECG INTERPRETATION (4000), editor newspaper Carl Henry () on 01/28/2020 1:16:09 PM Specimen Anatomical Collection Method Collection Time Receive d Time (Source) Location / / Volume Laterality 01/25/2020 8:55 AM 0 1:16 EMPLOYMENT CLERK PM CDT Sharon Smith PA-C ECG ORDERABLES Performing Organization Address City/State/ZIP Code Phon e Number HE CARDIOLOGY CONVERSION HE RADIANT CONVERSION documented in this encounter Visit Diagnoses Diagnosis Influenza B Influenza with other respiratory manifes tations documented in this encounter Additional Health Concerns Assessment Noted Time PHQ-9 Depression Total Score: 19 09/04/2015 7:20 AM CD T documented as of this encounter Care Teams Medical Director Of Hospice Relationship Specialty Start Date End Date No Ref-Primary, Physician PCP - General 07/27/15 04/14/20 documented as of this encounter
--- OUTSIDE RECORDS SUMMARY | 2022-08-31 22:23 | XMS_ITS | Encounter Summary ---
:1990 Author Organization [place] Address [facility] [place] [address] Care Team Providers Name Role Phone No Ref-Primary, Physician Primary Care Provider [phone] Holland Thomas MD Primary Care Provider [phone] Reason for Visit Reason Comments Loss of Consciousness Encounter Details Date Type Department Care Team Description 01/25/2020 Communication - [facility] Lisa Villalpando RN Consciousness Scheduling [address] [place] [address] Social History Tobacco Use Types [...] this encounter Miscellaneous Notes Telephone Encounter - Lisa Arroyo RN - 01/25/2020 7:16 AM CST Triage call: States that she thinks she might have had a seizure Yesterday she reports that she was very sick She states that she went into the bathroom this morning to throw up and she states that she woke up on the bathroom floor feeling her head shaking and arms shaking. Doesn't remember what happened- LOC. No hx of seizure disorder. Still feels weak and shaky- boyfriend was able to get her to bed after the incident. Triaged to be seen in the ER now - she agrees to go into [facility] to be seen today- patient agrees and will go into be seen. Lisa Olivarez RN BSBA Care Connection Triage/Med Refill 01/25/2020 7:22 AM Reason for Disposition ? ? Fainted > 15 minutes ago and still feels weak or dizzy Protocols used: NCESESEW-X-OB REACTOR OPERATOR HEAD documented in this encounter Plan of Treatment Not on filedocumented as of this encounter Visit Diagnoses Not on filedocumented in this encounter Additional Health Concerns Assessment Noted Time PHQ-9 Depression Total Score: 19 09/04/2015 7:20 AM CD T documented as of this encounter Care Teams Public Safety Telecommunicator Relationship Specialty Start Date End Date No Ref-Primary, Physician PCP - General 07/27/15 04/14/20 Holland Thomas MD PCP - General contact clerk 04/15/[address] [address] documented as of this encounter
--- OUTSIDE RECORDS SUMMARY | 2022-08-31 22:23 | XMS_ITS | Encounter Summary ---
:1990 Author Organization [facility] Address [address] [place] [id number] Care Team Providers Name Role Phone No Ref-Primary, Physician Primary Care Provider [phone] Reason for Visit Reason Comments Pharyngitis Encounter Details Date Type Department Care Team Description 08/10/2019 Emergency [facility], Pharyngiti s due to [facility] MD Peter Streptococcus species Emergency Room [address] [facility] [place] [id number] [phone] Social History Tobacco Use Types Packs/Day Years [...] - Inhaled Oxygen Concentration - - Weight 74.8 kg (165 lb) 08/10/2019 8:02 PM CDT Height 170.2 cm (5' 7) 08/10/2019 8:02 PM CDT Body Mass Index 25.84 08/10/2019 8:02 PM CDT documented in this encounter Medications [...] documented as of this encounter ED Notes Peter Perea MD - 08/10/2019 8:16 PM CDT EMERGENCY DEPARTMENT ENCOUNTER NAME: Keyla Porter AGE: 29 y.o. female DATE OF : 1990 EVALUATION DATE & TIME: 08/10/2019 8:04 PM PCP: Holland Thomas MD ED PROVIDER: Alec Perea M.D. Chief Complaint Patient presents with ??? Sore Throat Right side FINAL IMPRESSION: 1. Pharyngitis due to Streptococcus species ED COURSE & MEDICAL DECISION MAKIN y.o. female presents to the Emergency Department for evaluation of sore throat. She is diaphoretic and mildly uncomfortable on arrival to the emergency department, but not toxic appearing. Her vitalsigns are stable. She has no signs of deep space neck infection on exam. She has significant oropharyngeal exudate and erythema, she also has cervical lymphadenopathy. Recommended empiric treatment forstrep pharyngitis and she would prefer a Bicillin injection. Also administered Decadron and ibuprofen solutions to help with edema and pain. She can continue to take ibuprofen in the coming days for symptom control. Reviewed ED return precautions for any difficulty breathing or swallowing, or other imm ediate concerns. 8:17 PM I met with the patient to gather history and perform an initial exam. At the conclusion of the encounter I discussed the results of all of the tests and the disposition. The questions were answered. The patient or family acknowledged understanding and was agreeable with the care plan. MEDICATIONS GIVEN IN THE EMERGENCY: Medications penicillin G benzathine injection 1.2 Million Units (BICILLIN-LA) (1.2 Million Units Intramuscular Given 08/10/192046) ibuprofen 100 mg/5 mL suspension 200 mg (ADVIL,MOTRIN) (200 mg Oral Given 08/10/192032) dexamethasone injection 10 mg (DECADRON) (10 mg Oral Given 08/10/192032) NEW PRESCRIPTIONS STARTED AT TODAY'S ER VISIT Discharge Medication List as of 08/10/2019 9:08 PM START taking these medications Details ibuprofen (ADVIL,MOTRIN) 600 MG tablet Take 1 tablet (600 mg total) by mouth every 6 (six) hours as needed for pain., Starting Tue08/10/2019, Normal CONTINUE these medications which have NOT CHANGED Details ferrous sulfate 325 (65 FE) MG tablet Take 1 tablet by mouth daily with breakfast., Historical Med gabapentin (NEURONTIN) 100 MG capsule 1 cap at bedtime x 3 days. Then may take 2 caps at bedtime x 3days, then may take 3 caps at bedtime, Normal methylPREDNISolone (MEDROL, ANNA,) 4 mg tablet follow package directions, Normal metoclopramide (REGLAN) 10 MG tablet Take 1 tablet (10 mg total) by mouth every 6 (six) hours as needed for nausea., Starting Tue08/09/2019, Print nabumetone (RELAFEN) 500 MG tablet Take 1-2 tablets (500-1,000 mg total) by mouth 2 (two) times a day as needed for pain., Starting Tue02/28/2019, Normal SUMAtriptan (IMITREX) 50 MG tablet Take 1 tablet (50 mg total) by mouth once as needed for migraine.May repeat after 2 hours X 1 if incomplete relief., Starting Tue08/09/2019, Print HPI Patient information was obtained from: The patient Use of Mine Surveyor: N/A Keyla Porter is a 29 y.o. female with a pertinent history of chronic bronchitis, recurrent strep who presents to this ED walk in for evaluation of sore throat. The patient reports R side sore throat that started this morning with secondary fever, cough, near syncope. She states her tonsils are white and that it hurts to turn her head. She adds feeling faint at work today. She has not taken pain medicine yet. She endorses having ER visit yesterday for migraine. She affirms a history of chronic bronchitis and recurrent strep. Patient denies any other complaints at this time. REVIEW OF SYSTEMS 10 point ROS completed and negative except as noted here or in HPI. PAST MEDICAL HISTORY: Past Medical History: Diagnosis Date ??? Abnormal Pap smear of cervix 2011 Repeat WNL ??? Allergic Morphine ??? Anemia ??? Anxiety ??? 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 Endometriosis dx at 14, 3 laproscopic procedures ??? Endometriosis ??? Kidney stone 1 instance - prior to 2007 ~15 years ??? Malignant hyperthermia due to anesthesia ??? Migraine migraines - back of neck ??? PID (pelvic inflammatory disease) in an ER visit, got a shot - feels like it was misdiagnosed, endometriosis mis-diagnosed? depression 2012 Was doing the period alone ??? Urinary tract infection ??? Varicella twice as a child PAST SURGICAL HISTORY: Past Surgical History: Procedure Laterality Date ??? SECTION N/A 11/17/2016 Procedure: SECTION; Surgeon: Holland Thomas MD; Location: [facility] OR; Service: ??? COLPOSCOPY 2011 ??? ENDOMETRIAL ABLATION during one of the laparotomies ??? EXPLORATORY LAPAROTOMY 3x - last in 10/2015, 2010, Gyne surgeon in 2014 states no contraindication to vaginal per patient ??? IUD removal 11/13/2015 laproscopic procedure ??? LAPAROSCOPIC HYSTERECTOMY N/A 12/21/2017 Procedure: ROBOTC TOTAL LAPAROSCOPIC HYSTERECTOMY, BILATERAL SALPINGECTOMY ; Surgeon: Holland Thomas MD; Location: [facility] OR; Service: ??? MT LAP,FULGURATE/EXCISE LESIONS Right 03/25/2017 Procedure: LAPAROSCOPY, OVARIAN CYSTECTOMY; Surgeon: Holland Thomas MD; Location: [facility]; Service: Gynecology CURRENT MEDICATIONS: No current facility-administered medications on file prior to encounter. Current Outpatient Medications on File Prior to Encounter Medication Sig ??? ferrous sulfate 325 (65 FE) MG tablet Take 1 tablet by mouth daily with breakfast. ??? gabapentin (NEURONTIN) 100 MG capsule 1 cap at bedtime x 3 days. Then may take 2 caps at bedtimex 3 days, then may take 3 caps at bedtime ??? methylPREDNISolone (MEDROL, ANNA,) 4 mg tablet follow package directions ??? metoclopramide (REGLAN) 10 MG tablet Take 1 tablet (10 mg total) by mouth every 6 (six) hours asneeded for nausea. ??? nabumetone (RELAFEN) 500 MG tablet Take 1-2 tablets (500-1,000 mg total) by mouth 2 (two) times a day as needed for pain. ??? SUMAtriptan (IMITREX) 50 MG tablet Take 1 tablet (50 mg total) by mouth once as needed for migraine. May repeat after 2 hours X 1 if incomplete relief. ALLERGIES: Allergies Allergen Reactions ??? Parmelee ??? Blood-Group Specific Substance Other (See Comments) Warm autoantibodies present. Blood for transfusion will be delayed. Draw 3 lavender and 1 red tube for type and screen orders. ??? Morphine Nausea And Vomiting and Myalgia Nerve pain FAMILY HISTORY: Family History Problem Relation Age of Onset [...] loss Paternal Grandfather ??? Stroke Paternal Grandfather SOCIAL HISTORY: Social History Socioeconomic History ??? Marital status: Single Spouse name: Jose ??? Number of children: None ??? Years of education: come doreen ??? Highest education level: None Occupational History ??? Occupation: unemployed Social Needs ??? Financial resource strain: None ??? Food insecurity: Worry: None Inability: None ??? Transportation needs: Medical: None Non-medical: None Tobacco Use ??? Smoking status: Former Smoker Last attempt to quit: 03/14/2019 Years since quittin.4 ??? Smokeless tobacco: Never Used Substance and Sexual Activity ??? Alcohol use: No ??? Drug use: No ??? Sexual activity: Yes control/protection: IUD, None Lifestyle ??? Physical activity: Days per week: None Minutes per session: None ??? Stress: None Relationships ??? Social connections: Talks on phone: None Gets together: None Attends yazdanism service: None Active member of club or organization: None Attends meetings of clubs or organizations: None Relationship status: None ??? Intimate partner violence: Fear of current or ex partner: None Emotionally abused: None Physically abused: None Forced sexual activity: None Other Topics Concern ??? None Social History Narrative ??? None VITALS: Patient Vitals for the past 24 hrs: BP Temp Temp src Pulse Resp SpO2 Height Weight 08/10/192050 116/66 -- -- 72 -- 98 % -- -- 08/10/192010 132/77 -- -- 89 -- 98 % -- -- 08/10/192001 131/69 98.8 ??F (37.1 ??C) Oral 82 17 100 % 5' 7 (1.702 m) 165 lb (74.8 kg) PHYSICAL EXAM Constitutional: Well developed, Well nourished, NAD. HENT: Normocephalic, Atraumatic, Bilateral external ears normal. Neck Supple. Cervical lymphadenopathy. Tonsillar erythema and exudate bilaterally. Eyes: PERRL, EOMI, Conjunctiva normal. Respiratory: Normal breath sounds, No respiratory distress, No wheezing, Speaks full sentences easily. Cardiovascular: Normal heart rate, Regular rhythm. No peripheral edema. Abdomen: Soft. Musculoskeletal: Good range of motion in all major joints. No tenderness to palpation or major deformities noted. Integument: Warm, Dry, No erythema. Neurologic: Alert & oriented x 3, Normal motor function, Normal sensory function, No focal deficits noted. Psychiatric: Affect normal, Judgment normal, Mood normal. Cooperative. Estefania Gonzalez, am serving as a scribe to document services personally performed by Dr. Perea based on my observation and the provider's statements to me. I, Peter Perea MD attest that Estefania Kellogg is acting in a scribe capacity, has observed my performance of the services and has documented them in accordance with my direction. Peter Perea M.D. Emergency Medicine [facility] EMERGENCY DEPARTMENT [address] [place] [address] Dept: [phone] Loc: [phone] Peter Perea MD 08/10/19 [id number] Lluvia Rocha - 08/10/2019 8:01 PM CDT The patient presents to the ED with c/o sore throat on right side that started this morning. Reportsfeeling feverish off/on. Also c/o muscle aches, cough, congestion. documented in this encounter Plan of Treatment Not on filedocumented as of this encounter Visit Diagnoses Diagnosis Pharyngitis due to Streptococcus species documented in this encounter Additional Health Concerns Assessment Noted Time PHQ-9 Depression Total Score: 19 09/04/2015 7:20 AM CD T documented as of this encounter Care Teams Forging Die Finisher Relationship Specialty Start Date End Date No Ref-Primary, Physician PCP - General 07/27/15 04/14/20 documented as of this encounter
--- OUTSIDE RECORDS SUMMARY | 2022-08-31 22:23 | XMS_ITS | Encounter Summary ---
:1990 Author Organization [facility] Address [address] [place] [address] Care Team Providers Name Role Phone No Ref-Primary, Physician Primary Care Provider [phone] Holland Thomas MD Primary Care Provider [phone] Reason for Visit Reason Comments Establish Care Encounter Details Date Type Department Care Team Description 12/27/2019 Office Visit - [facility] Darya Leonard PA-C NO INFO AVAILABLE Migraine with aura [facility] Provider, Historical and with status [address] [facility] [address] [phone] Social History Tobacco Use Types Packs/Day Years [...] Sign Reading Time Taken Comments Blood Pressure 120/70 12/27/2019 11:16 AM FOCUSER Pulse - - Temperature - - Respiratory Rate - - Oxygen Saturation - - Inhaled Oxygen Concentration - - Weight 81.6 kg (180 lb) 12/27/2019 11:16 AM FOCUSER Height 170.1 cm (5' 6.96) 12/27/2019 11:16 AM FOCUSER Body Mass Index 28.23 12/27/2019 11:16 AM FOCUSER documented in this encounter Progress Notes Darya Leonard PA-C - 12/27/2019 11:15 AM CST HPI: Keyla Porter is a 29 y.o. female who is seen for Chief Complaint Patient presents with ??? Establish Care Keyla Porter is seen to establish care, has a history of migraines and needs a refill of her Imitrex. States that she gets about 3-4 migraines a month. She does have aura, pain is behind the righteye. Imitrex works well at 1-2 doses. She usually takes ibuprofen if the pain is not too severe. Shehas chronic low back pain, takes [id number] medication for this, does not have a lower leg neuropathies or weakness. She has a history of endometriosis, had a hysterectomy in 2017. She still has her ovaries. She notes some night sweats and weight gain. She had a colonoscopy 9 years ago for endometrial seeding of the abdomen. She had a laparoscopic surgery to remove this evening. She has a histor y of anemia but does not have any current concerns with this. She tends to have some chronic abdominal discomfort. Her last Pap smear was in 2015. She sees her BOND RUNNER for ongoing surveillance of the endometriosis. She has a history of generalized anxiety disorder, has used counseling to keep her symptoms under control, currently uses these techniques from CBT. Did try Prozac years ago but did not like how it made her feel. ROS: Patient denies fever, chills, sweats, fainting, fatigue, weight change, dizziness, sleep problems, chest pain, palpitations, shortness of breath, wheezing, cough, sore throat, changes in hearing, ear pain,tinnitus, disphagia, sore throat, globus, changes in vision, eye pain eye redness, acid reflux, nausea, vomiting, diarrhea, constipation, black or bloody stools, Dysuria, frequency, urinary incontinence, nocturia, hematuria, joint pain, bone pain, muscle cramps,edema, weakness, numbness, tingling of extremities, rash, itching, skin changes, swollen lymph nodes, thirst, increased urination, breast lumps, breast pain, nipple discharge, memory difficulties, anxiety, mood swings, (female)vaginaldischarge, dyspareunia, menorrhagia, pelvic pain, sexual dysfunction, (male) testicular lumps, erectile dysfunction. No results found for: HGBA1C Lab Results Component Value Date CREATININE 0.77 09/08/2019 Patient Active Problem List Diagnosis ??? Depression with anxiety ??? Hx of depression, currently ??? History of laparoscopy ??? Encounter for supervision of other normal , second trimester ??? Abnormal antibody titer ??? Hypotension ??? Anxiety ??? Vaginal bleeding during , antepartum ??? Pelvic pain ??? Vaginal bleeding ? Postoperative fever ??? Alcoholic intoxication without complication (H) ??? Cannabis use disorder, moderate, dependence (H) ??? Chronic midline low back pain without sciatica ??? Surveillance for Depo-Provera contraception ??? Suicidal ideation ??? Warm reactive antibody (H) Family History Problem Relation Age of Onset [...] Grandfather ??? Stroke Paternal Grandfather Social History Socioeconomic History ??? Marital status: [...] quittin.8 ??? Smokeless tobacco: Never Used Substance and Sexual Activity ??? Alcohol use: No ??? Drug use: No ??? Sexual activity: Yes control/protection: I.U.D., None Lifestyle ??? Physical activity: Days per week: None Minutes per session: None ??? Stress: None Relationships ??? Social connections: Talks on phone: None Gets together: None Attends confucianist service: None Active member of club or organization: None Attends meetings of clubs or organizations: None Relationship status: None ??? Intimate partner violence: Fear of current or ex partner: None Emotionally abused: None Physically abused: None Forced sexual activity: None Other Topics Concern ??? None Social History Narrative ??? None Past Surgical History: Procedure Laterality Date ??? SECTION N/A 11/17/2016 Procedure: SECTION; Surgeon: Holland Thomas MD; Location: [facility] [place]; Service: ??? COLPOSCOPY 2011 ??? ENDOMETRIAL ABLATION during one of the laparotomies ??? EXPLORATORY LAPAROTOMY 3x - last in 10/2015, 2010, Gyne surgeon in 2015 states no contraindication to vaginal per patient ??? IUD removal 11/13/2015 laproscopic procedure ??? LAPAROSCOPIC HYSTERECTOMY N/A 12/21/2017 Procedure: ROBOTC TOTAL LAPAROSCOPIC HYSTERECTOMY, BILATERAL SALPINGECTOMY ; Surgeon: Holland Thomas MD; Location: [facility] [place]; Service: ??? NM LAP,FULGURATE/EXCISE LESIONS Right 03/25/2017 Procedure: LAPAROSCOPY, OVARIAN CYSTECTOMY; Surgeon: Holland Thomas MD; Location: [facility]; Service: Gynecology Current Outpatient Medications on File Prior to Visit Medication Sig Dispense Refill ??? ferrous sulfate 325 (65 FE) MG tablet Take 1 tablet by mouth daily with breakfast. ??? ibuprofen (ADVIL,MOTRIN) 600 MG tablet Take 1 tablet (600 mg total) by mouth every 6 (six) hoursas needed for pain. 30 tablet 0 ??? metoclopramide (REGLAN) 10 MG tablet Take 1 tablet (10 mg total) by mouth every 6 (six) hours asneeded for nausea. 30 tablet 0 No current facility-administered medications on file prior to visit. Allergies Allergen Reactions ??? Blood-Group Specific Substance Other (See Comments) Warm autoantibodies present. Blood for transfusion will be delayed. Draw 3 lavender and 1 red tube for type and screen orders. ??? Morphine Nausea And Vomiting and Myalgia Nerve pain OB History 3 Para 2 Term 1 1 AB 1 Living 2 SAB 1 TAB Ectopic Multiple 0 Live Births 2 I have reviewed the patient's medical history in detail and updated the computerized patient record. OBJECTIVE: Wt Readings from Last 3 Encounters: 12/27/19 180 lb (81.6 kg) 12/13/19 179 lb (81.2 kg) 12/03/19 172 lb (78 kg) Temp Readings from Last 3 Encounters: 12/03/19 98.3 ??F (36.8 ??C) (Oral) 09/08/19 97.6 ??F (36.4 ??C) (Oral) 08/14/19 98.4 ??F (36.9 ??C) (Oral) BP Readings from Last 3 Encounters: 12/27/19 120/70 12/13/19 128/72 12/03/19 136/61 Pulse Readings from Last 3 Encounters: 12/13/19 66 12/03/19 67 09/08/19 66 Body mass index is 28.23 kg/m??. Alert, cooperative, well-hydrated. Appears well. Eyes: Pupils equal, round, reactive to light. HEENT: Sclera white, nares patent, MMM, TM's pearly bilaterally Neck: supple, without lymphadenopathy, Thyroid freely movable and without hypotrophy or nodularity. Lungs: Clear to auscultation. No retractions, no increased work of respiration, equal chest rise. Heart: Regular rate and rhythm, no murmurs, clicks, Gallops. Abdomen: Soft, bowel sounds in 4 quadrants with no tenderness to palpation, no organomegaly or masses, no aortic or renal bruits. Extremities: no tenderness to palpation of gastrocnemius, bilaterally. Skin: no increased warmth, edema, or erythema of lower legs bilaterally. Back: No cervical, thoracic or lumbar tenderness to spinous processes or musculature. Neuro::pupils equal and reactive to light bilaterally, CN II - XII grossly intact. No focal motor/sensory deficits. DTR 2/4 all 4 extremities. Muscle Strength 5/5 all extremities, Rhomberg negative Labs: No visits with results within 3 Month(s) from this visit. Latest known visit with results is: Admission on 09/08/2019, Discharged on 09/08/2019 Component Date Value ??? Color, UA 09/08/2019 Yellow ??? Clarity, UA 09/08/2019 Clear ??? Glucose, UA 09/08/2019 Negative ??? Bilirubin, UA 09/08/2019 Negative ??? Ketones, UA 09/08/2019 Negative ??? Specific Morris, UA 09/08/2019 1.030 ??? Blood, UA 09/08/2019 Negative ??? pH, UA 09/08/2019 6.0 ??? Protein, UA 09/08/2019 30 mg/dL* ? ? Urobilinogen, UA 09/08/2019 <2.0 E.U./dL ??? Nitrite, UA 09/08/2019 Negative ??? Leukocytes, UA 09/08/2019 Negative ??? Bacteria, UA 09/08/2019 None Seen ??? RBC, UA 09/08/2019 0-2 ??? WBC, UA 09/08/2019 0-5 ??? Squam Epithel, UA 09/08/2019 5-10* ??? Mucus, UA 09/08/2019 Many* ??? Sodium 09/08/2019 139 ??? Potassium 09/08/2019 3.9 ??? Chloride 09/08/2019 111* ??? CO2 09/08/2019 20* ??? Anion Gap, Calculation 09/08/2019 8 ??? Glucose 09/08/2019 91 ??? Calcium 09/08/2019 9.2 ??? BUN 09/08/2019 16 ??? Creatinine 09/08/2019 0.77 ? ? GFR MDRD Af Amer 09/08/2019 >60 ? ? GFR MDRD Non Af Amer 09/08/2019 >60 ? ? Alcohol, Blood 09/08/2019 <10 ??? Bilirubin, Total 09/08/2019 0.6 ??? Bilirubin, Direct 09/08/2019 0.2 ??? Protein, Total 09/08/2019 7.8 ??? Albumin 09/08/2019 4.1 ??? Alkaline Phosphatase 09/08/2019 42* ??? AST 09/08/2019 20 ??? ALT 09/08/2019 22 ? ? Lipase 09/08/2019 <9 ??? Chlamydia trachomatis, A* 09/08/2019 Negative ??? Neisseria gonorrhoeae, A* 09/08/2019 Negative ??? Yeast Result 09/08/2019 Yeast Seen* ??? Trichomonas 09/08/2019 No Trichomonas seen ??? Clue Cells, Wet Prep 09/08/2019 No Clue cells seen ??? WBC 09/08/2019 6.2 ??? RBC 09/08/2019 3.96 ??? Hemoglobin 09/08/2019 12.4 ??? Hematocrit 09/08/2019 36.5 ??? MCV 09/08/2019 92 ??? MCH 09/08/2019 31.3 ??? MCHC 09/08/2019 34.0 ??? RDW 09/08/2019 12.7 ??? Platelets 09/08/2019 248 ??? MPV 09/08/2019 9.1 ??? Neutrophils % 09/08/2019 70 ??? Lymphocytes % 09/08/2019 22 ??? Monocytes % 09/08/2019 7 ??? Eosinophils % 09/08/2019 1 ??? Basophils % 09/08/2019 0 ??? Neutrophils Absolute 09/08/2019 4.3 ??? Lymphocytes Absolute 09/08/2019 1.3 ??? Monocytes Absolute 09/08/2019 0.4 ??? Eosinophils Absolute 09/08/2019 0.1 ??? Basophils Absolute 09/08/2019 0.0 ASSESMENT/PLAN: 1. Migraine with aura and with status migrainosus, not intractable SUMAtriptan (IMITREX) 50 MG tablet Refills given of Imitrex. Follow-up for physical. Darya Leonard, MS, MARLA 01/01/20 documented in this encounter Miscellaneous Notes Patient Instructions - DAV - Darya Leonard PA-C - 12/27/2019 11:15 AM CST Citrucel daily with 8 oz water. documented in this encounter Plan of Treatment Not on filedocumented as of this encounter Visit Diagnoses Diagnosis Migraine with aura and with status migra inosus, not intractable Migraine with aura, with intractable lisa constantin, so stated, with status migrainosus documented in this encounter Additional Health Concerns Assessment Noted Time PHQ-9 Depression Total Score: 19 09/04/2015 7:20 AM CD T documented as of this encounter Care Teams Car Wash Attendant Relationship Specialty Start Date End Date No Ref-Primary, Physician PCP - General 07/27/15 04/14/20 Holland Thomas MD PCP - General sales representative leather goods 04/15/[address] [address] documented as of this encounter
--- OUTSIDE RECORDS SUMMARY | 2022-08-31 22:23 | XMS_ITS | Encounter Summary ---
:1990 Author Organization [facility] Address [address] [place] [address] Care Team Providers Name Role Phone Holland Thomas MD Primary Care Provider [phone] Reason for Visit Reason Comments Eye Pain Epistaxis Hives Encounter Details Date Type Department Care Team Description 07/13/2020 Communication - Vickie Douglas Eye Pain; Jordi Hernandez RN Epistaxis; Hive s Scheduling [address] [place] [phone] Social History Tobacco Use Types [...] this encounter Miscellaneous Notes Telephone Encounter - Vickie Mason, RN - 07/13/2020 8:15 AM CDT chocolate dipper: Seen in the ED yesterday ear pain and eye pain. Stone in her parotid gland per patient. Pain med, antinausea, antibiotic Got worse over night. No sleep. Right eye is now red and swollen and painful. Not swollen shut. Behind the eye is very painful. Painis 10/10 behind the right eye. Unable to keep her eye open. NO blurred vision. She is having continuous right eye watering. Hives on the right side of the scalp and forehead. Unknown by patient what might be causing this, morphine allergy listed. NO difficulty breathing. NO imaging done per patient. Nose bleed on the right. She passed a huge clot per patient. It was a quarter sized clot, nose is still bleeding. She was advised on proper technique to stop a nose bleed. Right head middle of forehead to the right ear is hot and red. No fever noted. Advised to stop the medication until evaluated. Advised ED for evaluation. Vickie Mason RN, BSN Care Connection Triage Nurse Reason for Disposition ??? Severe eye pain ??? [1] Nosebleed AND [2] bleeding now BUT [3] not using correct technique ??? Taking new prescription antibiotic (Exception: finished taking new prescription antibiotic) ??? Taking new prescription medicine (Exceptions: finished taking new prescription antibiotic OR questions about flushing from niacin) Additional Information ??? Negative: Followed an eye injury ??? Negative: Eye pain from chemical in the eye ??? Negative: Eye pain from foreign body in eye ??? Negative: [1] Tender, red lump or pimple AND [2] located along the eyelid margin ??? Negative: Has sinus pain or pressure ??? Negative: [1] Mild-moderate nosebleed AND [2] bleeding stopped now ? ? Negative: [1] Nosebleed AND [2] bleeding present < 30 minutes AND [3] using correct techniqueper guideline ? ? Negative: [id number] nosebleeds are a chronic symptom (recurrent or ongoing AND present > 4weeks) ??? Negative: Easy bleeding present in other family members ??? Negative: Has nasal packing (inserted by health care provider to control bleeding) ??? Negative: [1] Bleeding recurs 3 or more times in 24 hours AND [2] direct pressure applied correctly ??? Negative: [1] Skin bruises or bleeding gums AND [2] not caused by an injury ??? Negative: [1] Large amount of blood has been lost (e.g., 1 cup or 240 ml) AND [2] bleeding now controlled (stopped) ? ? Negative: [1] Has nasal packing AND [2] fever > 100.5 F (38.1 C) ??? Negative: Taking Coumadin (warfarin) or other strong blood thinner, or known bleeding disorder (e.g., thrombocytopenia) ??? Negative: Patient sounds very sick or weak to the triager ? ? Negative: [1] Bleeding present > 30 minutes AND [2] using correct method of direct pressure ??? Negative: [1] Bleeding now AND [2] second call after being instructed in correct technique of direct pressure ??? Negative: Dizziness or lightheadedness ??? Negative: Pale skin (pallor) of new onset or worsening ??? Negative: [1] Has nasal packing (inserted by health care provider to control bleeding) AND [2] new rash ??? Negative: [1] Has nasal packing AND [2] now bleeding around the packing (Exception: few drops orooze) ??? Negative: Nosebleed followed a nose injury ??? Negative: Fainted or too weak to stand following large blood loss ??? Negative: Sounds like a life-threatening emergency to the triager ??? Negative: Hives or itching ??? Negative: [1] Purple or blood-colored rash (spots or dots) AND [2] no fever AND [3] sounds well to triager ??? Negative: [1] Taking new prescription medication AND [2] rash within 4 hours of 1st dose ??? Negative: Large or small blisters on skin (i.e., fluid filled bubbles or sacs) ??? Negative: Bloody crusts on lips or sores in mouth ??? Negative: Face or lip swelling ??? Negative: Fever ??? Negative: Patient sounds very sick or weak to the triager ??? Negative: Swollen tongue ? ? Negative: [1] Widespread hives AND [2] onset < 2 hours of exposure to 1st dose of drug ??? Negative: Rash is only on 1 part of the body (localized) ??? Negative: Taking new non-prescription (OTC) antihistamine, decongestant, ear drops, eye drops, or other OTC cough/cold medicine ??? Negative: Taking new prescription antihistamine, allergy medicine, asthma medicine, eye drops, ear drops or nose drops ??? Negative: Rash started more than 3 days after stopping new prescription medicine ? ? Negative: [1] Life-threatening reaction (anaphylaxis) in the past to the same drug AND [2] < 2 hours since exposure ??? Negative: Difficulty breathing or wheezing ??? Negative: [1] Hoarseness or cough AND [2] started soon after 1st dose of drug ??? Negative: [1] Swollen tongue AND [2] started soon after 1st dose of drug ??? Negative: [1] Purple or blood-colored rash (spots or dots) AND [2] fever ??? Negative: Sounds like a life-threatening emergency to the triager Protocols used: EYE PAIN-A-AH, [id number], RASH - WIDESPREAD ON DRUGS-A-AH documented in this encounter Plan of Treatment Not on filedocumented as of this encounter Visit Diagnoses Not on filedocumented in this encounter Additional Health Concerns Assessment Noted Time PHQ-9 Depression Total Score: 19 09/04/2015 7:20 AM CD T documented as of this encounter Care Teams Child Health Associate Relationship Specialty Start Date End Date Holland Thomas MD PCP - General surgical garment fitter 04/15/20 [address] [address] documented as of this encounter
--- OUTSIDE RECORDS SUMMARY | 2022-08-31 22:23 | XMS_ITS | Encounter Summary ---
:1990 Author Organization [place] Address [facility] [place] [address] Care Team Providers Name Role Phone Holland Thomas MD Primary Care Provider [phone] Amarilys Friedman MECHANICAL APPLICATIONS ENGINEER Unavailable Reason for Visit Reason Comments Headache Encounter Details Date Type Department Care Team Description 04/22/2022 [facility] Quintin Aguirre [facility] MD [facility] status migrainosus, Emergency Room [address] intractable [facility] [place] [id number] [phone] Social History Tobacco Use Types Packs/Day Years [...] have Coronavirus/COVID-19? documented as of this encounter Last Filed [...] Mass Index 20.67 04/22/2022 12:53 PM CDT documented in this encounter Discharge Instructions Discharge InstructionsThQuintin jean MD - 04/22/2022 5:12 PM CDT Your symptoms today appear to be due to a migraine. Continue your previously prescribed medications.Follow-up with neurology as an outpatient for further evaluation and return to the ER for any worsening symptoms or other concerns. documented in this encounter Medications [...] as of this encounter ED Notes Ashley Ness, RN - 04/22/2022 12:56 PM CDT 10 day history of right sided migraine. Has progressively gotten worse with nausea and vomiting. Hastried imitrex, excedrine migraine, hot and cold application without relief. Did go to an ED on Tuesday after having a near syncopal episode and was given migraine cocktail without any relief. They did not have access to a CT. Patient states that she does not usually have a migraine this long and thinks she would like to have a CT Triage Assessment Row Name 04/22/22 1256 Triage Assessment (Adult) Airway WDL WDL Respiratory WDL Respiratory WDL WDL Skin Circulation/Temperature WDL Skin Circulation/Temperature WDL WDL Cardiac WDL Cardiac WDL WDL Peripheral/Neurovascular WDL Peripheral Neurovascular WDL WDL Cognitive/Neuro/Behavioral WDL Cognitive/Neuro/Behavioral WDL WDL Quintin Aguirre MD - 04/22/2022 12:40 PM CDT EMERGENCY DEPARTMENT ENCOUnter NAME: Keyla Porter AGE: [age] year old female DATE OF : 1990 EVALUATION DATE & TIME: No admission date for patient encounter. PCP: Holland Thomas ED PROVIDER: Quintin Aguirre, DO Chief Complaint Patient presents with ??? Headache FINAL IMPRESSION: 1. Other migraine without status migrainosus, intractable ED COURSE & MEDICAL DECISION MAKIN:14 PM I met with the patient for the initial interview and physical examination in the waiting room. Discussed plan for treatment and workup in the ED. PPE Worn: N95 The patient presented emerged from today with complaints of a headache. She has a history of chronicmigraines. She has no acute neurologic deficits or other concerning findings on physical exam. CT ofthe head was performed today which was unremarkable. She was given migraine medications with mild improvement in her symptoms. The patient is comfortable with the plan for discharge home. I recommendedthat she follow-up with neurology as an outpatient for ongoing management of her chronic migraines. At the conclusion of the encounter I discussed the results of all of the tests and the disposition. The questions were answered. The patient or family acknowledged understanding and was agreeable with the care plan. MEDICATIONS GIVEN IN THE EMERGENCY: Medications 0.9% sodium chloride BOLUS (0 mLs Intravenous Stopped 04/22/22 1620) ketorolac (TORADOL) injection 15 mg (15 mg Intravenous Given 04/22/22 143) ondansetron (ZOFRAN) injection 4 mg (4 mg Intravenous Given 04/22/22 143) HPI Keyla Porter is a 31 year old female with a pertinent history of heart murmur, anemia, and chronic migraines who presents to this ED by walk in for evaluation of migraine. Per chart review, patient was evaluated at [place] ED on 04/12/22 for an acute non intractable headache where she was given toradol, compazine, and benadryl. She was discharged with plan to follow up with her primary care provider. Patient reports a persisting right-sided migraine for the past 10 days that has increased in severity in the last 48 hours. She notes associated nausea, vomiting, light/noise sensitivity, and tingling in her fingertips. Patient reports that on Tuesday (04/19/22) that the pain was so severe that she had t emporarily blacked out from the pain but managed to catch herself before falling to the floor. She states that she has tried imitrex, excedrin, acetaminophen, cold packs, and multiple home remedies without success in relieving symptoms. Patient states migraine cocktail administered on 04/12/22 at [facility] ED did not help with symptoms, and had given her anxiety and shakiness. She states that when she went to work today, the pain was so bad that she was in immediate tears and had been asked to leave. Patient reports that her migraines usually last 24- 48 hours. Patient denies recent falls or head trauma. Patient denies additional symptoms or complaints at this time. 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 Positive for nausea and vomiting Musculoskeletal: Denies any new extremity pain Skin: Denies rash Neurologic: Denies focal weakness. Positive for headache and light/noise sensitivity All other systems reviewed and are negative PAST MEDICAL HISTORY: Past Medical History: Diagnosis Date ??? Abnormal Pap smear of cervix 2012 Repeat WNL ??? Allergic Morphine ??? Anemia ??? Anxiety ??? Chickenpox x2 ??? 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 Endometriosis ??? Endometriosis dx at 14, 3 laproscopic procedures ??? Endometriosis ??? Heart murmur ??? IUD migration ??? Kidney stone 1 instance - prior to 2007 ??? Malignant hyperthermia due to anesthesia ??? Migraine migraines - back of neck ??? Papanicolaou smear of cervix with low grade squamous intraepithelial lesion (LGSIL) 05/03/12 ??? PID (pelvic inflammatory disease) in an ER visit, got a shot - feels like it was misdiagnosed, endometriosis mis-diagnosed? depression 2011 Was doing the period alone ??? Suicidal ideation 07/27/2015 ??? Urinary tract infection ??? Varicella twice as a child PAST SURGICAL HISTORY: Past Surgical History: Procedure Laterality Date ??? SECTION N/A 11/17/2016 Procedure: SECTION; Surgeon: Holland Thomas MD; Location: [facility] [place]; Service: ??? COLONOSCOPY ??? COLPOSCOPY 2011 ??? DILATION AND CURETTAGE SUCTION, TREAT INCOMPLETE 2008 D&E ??? DILATION AND CURETTAGE, OPERATIVE HYSTEROSCOPY, COMBINED N/A 11/13/2015 D&C HSC, hysterectomy-12/21/2017 ??? ENDOMETRIAL ABLATION during one of the laparotomies ??? HC LAPAROSCOPIC IUD REMOVAL 11/13/2015 ??? LAPAROSCOPIC HYSTERECTOMY N/A 12/21/2017 Procedure: ROBOTC TOTAL LAPAROSCOPIC HYSTERECTOMY, BILATERAL SALPINGECTOMY ; Surgeon: Holland Thomas MD; Location: [facility]; Service: ??? LAPAROSCOPY 03/2010 endometriosis ??? LAPAROTOMY EXPLORATORY 3x - last in 10/2015, 2010, Gyne surgeon in 2014 states no contraindication to vaginal per patient ??? LASER CO2 LAPAROSCOPIC VAPORIZATION ENDOMETRIUM N/A 11/13/2015 vaporization of endometriosis ??? OTHER SURGICAL HISTORY 11/13/2015 IUD removallaproscopic procedure ??? MD LAP,FULGURATE/EXCISE LESIONS Right 03/25/2017 Procedure: LAPAROSCOPY, OVARIAN CYSTECTOMY; Surgeon: Holland Thomas MD; Location: [facility]; Service: Gynecology ??? ZZC ORAL SURGERY PROCEDURE wisdom teeth x 5 CURRENT MEDICATIONS: ibuprofen (ADVIL/MOTRIN) 600 MG tablet tiZANidine (ZANAFLEX) 2 MG tablet venlafaxine (EFFEXOR-ER) 75 MG TB24 24 hr tablet ALLERGIES: Allergies Allergen Reactions ??? Blood Transfusion Related (Informational Only) Other (See Comments) Patient has a history of a clinically significant antibody against RBC antigens. A delay in compatible RBCs may occur. ??? Morphine Unknown Nerve pain ??? [place] FAMILY HISTORY: Family History Problem Relation Age of Onset ??? Blood Disease Paternal Grandfather anemia ??? Cancer Paternal Grandfather ??? Diabetes Paternal Grandmother ??? Cerebrovascular Disease Father ??? Cerebrovascular Disease Paternal Grandfather ??? Depression Mother ??? Alcohol/Drug Mother meth ??? Alcohol/Drug Father drugs ??? Arthritis Mother ??? Substance Abuse Mother ??? Mental Illness Mother ??? Early Father ??? Mental Illness Sister ADHD and anger issues ??? Alcoholism Maternal Aunt ??? Substance Abuse Maternal Aunt ??? Hypertension Maternal Aunt ??? Kidney Disease Maternal Aunt ??? Early Paternal Uncle ??? Cerebrovascular Disease Paternal Uncle ??? Heart Disease Maternal Grandmother ??? Hearing Loss Maternal Grandmother ??? Arthritis Maternal Grandmother ??? Dementia Maternal Grandfather ??? Hypertension Maternal Grandfather ??? Hypertension Paternal Grandmother ??? Arthritis Paternal Grandfather ??? Asthma Paternal Grandfather ??? Depression Paternal Grandfather ??? Hearing Loss Paternal Grandfather SOCIAL HISTORY: Social History Socioeconomic History ??? Marital status: Single Spouse name: None ??? Number of children: None ??? Years of education: come doreen ??? Highest education level: None Tobacco Use ??? Smoking status: Former Smoker Packs/day: 0.10 Types: Cigarettes Quit date: 03/14/2019 Years since quittin.1 ??? Smokeless tobacco: Never Used ??? Tobacco comment: smoking 10cig/day- down to 1-2 with Substance and Sexual Activity ??? Alcohol use: Yes Alcohol/week: 0.0 standard drinks Comment: 3 times a month ??? Drug use: No ??? Sexual activity: Yes Partners: Male control/protection: Female Surgical, I.U.D., None Comment: Other Topics Concern ??? Parent/sibling w/ CABG, CT or angioplasty before 65F 55M? No VITALS: Patient Vitals for the past 24 hrs: BP Temp Temp src Pulse Resp SpO2 Height Weight 04/22/22 1724 112/70 -- -- 80 16 97 % -- -- 04/22/22 1253 110/68 98.9 ??F (37.2 ??C) Oral 78 18 98 % 1.702 m (5' 7) 59.9 kg (132 lb) PHYSICAL EXAM Constitutional: Well developed, Well nourished, HENT: Normocephalic, Atraumatic, Bilateral external ears normal, Oropharynx moist, Nose normal. Neck: Normal range of motion, No meningismus, No stridor. Eyes: EOMI, Conjunctiva normal, No discharge. Respiratory: Normal breath sounds, No respiratory distress, No wheezing, No chest tenderness. Cardiovascular: Normal heart rate GI: Soft, No tenderness, No guarding Musculoskeletal: No tenderness to palpation or major deformities noted. Integument: Warm, Dry, No erythema, No rash. Neurologic: Alert & oriented x 3, Normal motor function, Normal sensory function, No focal deficits noted. Psychiatric: Affect normal, Judgment normal, Mood normal. RADIOLOGY: I have independently reviewed and interpreted the above imaging, pending the final radiology read. Head CT w/o contrast Final Result IMPRESSION: 1. Normal head CT. I, Toni Turk, am serving as a scribe to document services personally performed by Dr. Aguirre basedon my observation and the provider's statements to me. I, Quintin Aguirre, DO attest that Toni Turk is acting in a scribe capacity, has observed my performance of the services and has documented them in accordance with my direction. Quintin Aguirre, DO Emergency Medicine [facility] EMERGENCY ROOM [address] [facility] [address] Dept: [phone] Quintin Aguirre MD 04/22/221911 documented in this encounter Plan of Treatment Not on filedocumented as of this encounter Procedures Procedure Name Priority Date/Time Associated Diagnosis Comme nts CT HEAD W/O STAT 04/22/2022 1:37 PM Results f or this CONTRAST CDT procedure are i n the results section. documented in this encounter Results Head CT w/o contrast (04/22/2022 1:37 PM CDT) Anatomical Region Laterality Modality Head, SUBRAD CT NEURO, SUBRAD CT NEURO, UMP CT NEURO, Computed Tomography RAD CT Specimen (Source) Anatomical Collection Method Collection Time Re ceived Time Location / / Volume Laterality 04/22/2022 1:37 PM CDT Impressions 04/22/2022 1:56 PM CDT IMPRESSION: 1. ??Normal head CT. Narrative 04/22/2022 1:56 PM CDT EXAM: CT HEAD W/O CONTRAST LOCATION: [facility] DATE/TIME: 04/22/2022 1:37 PM INDICATION: Headache COMPARISON: None. TECHNIQUE: Routine CT Head without IV co ntrast. Multiplanar reformats. Dose reduction techniques were used. FINDINGS: INTRACRANIAL CONTENTS: No intracranial h emorrhage, extraaxial collection, or mass effect. ??No CT evidence of acute infarct. Normal parenchymal attenuation. Normal ventricles and sulci. VISUALIZED ORBITS/SINUSES/MASTOIDS: No i ntraorbital abnormality. No significant paranasal sinus mucosal disease. No middle ear or mastoid effusion. BONES/SOFT TISSUES: No acute abnormality . Procedure Note Gross, Ruben Evans MD - 04/22/2022Form atting of this note might be different from the original. EXAM: CT HEAD W/O CONTRAST LOCATION: [facility] DATE/TIME: 04/22/2022 1:37 PM INDICATION: Headache COMPARISON: None. TECHNIQUE: Routine CT Head without IV co ntrast. Multiplanar reformats. Dose reduction techniques were used. FINDINGS: INTRACRANIAL CONTENTS: No intracranial h emorrhage, extraaxial collection, or mass effect. No CT evidence of acute infarct. Normal parenchymal attenuation. Normal ventricles and sulci. VISUALIZED ORBITS/SINUSES/MASTOIDS: No i ntraorbital abnormality. No significant paranasal sinus mucosal disease. No middle ear or mastoid effusion. BONES/SOFT TISSUES: No acute abnormality . IMPRESSION: 1. Normal head CT. Home Rowley DO [facility] CT ORDERABLES documented in this encounter Visit Diagnoses Diagnosis Other migraine without status migrainosu s, intractable documented in this encounter Administered Medications Inactive Administered Medications - up to 3 most recent administrations Medication Order MAR Action Action Date Dose Rate Site 0.9% sodium chloride BOLUS New Bag 04/22/2022 2:29 PM CDT 1,000 mLs Intravenous, 1,000 mL, ONCE, On Marizol 04/22/22 at 1430, For 1 dose ketorolac (TORADOL) injection 15 mg Given 04/22/2022 2:32 PM CDT 15 mg 15 mg, Intravenous, ONCE, On Marizol 04/22/22 at 1430, For 1 dose, Do not give within 6 hours of Ibuprofen. Can cause pain on injection. If ordered intravenously (IV) : administer through a running maintenance fluid over 1 minute followed by a flush. If patient complains of pain on injection, may dilute 15-30 mg in 5 mL and push over 1 to 2 minutes. ondansetron (ZOFRAN) injection 4 mg Given 04/22/2022 2:32 PM CDT 4 mg 4 mg, Intravenous, ONCE, Administer over 2-5 Minutes, On Marizol 04/22/22 at 1430, For 1 dose, May repeat in 30 minutes as needed, up to 3 doses. Irritant. documented in this encounter Active and Recently Administered Medications Times are shown in CDT. Scheduled Medication Order 04/20/2022 04/21/2022 04/22/2022 0.9% sodium chloride BOLUS (COMPLETED) 1429 (New Bag - Provider: iKley Rdz, [place]AD[place]ICK)1620 (Stopped - Provider: Vivek Lepe RN) Intravenous, 1,000 mL, ONCE, On Marizol 04/22/22 at 1430, For 1 dose ketorolac (TORADOL) injection 15 mg (COMPLETED) 1431 (Given - Provider: Kiley Rdz, [place]) 15 mg, Intravenous, ONCE, On Marizol 04/22/22 at 1430, For 1 dose, Do not give within 6 hours of Ibuprofen. Can cause pain on injection. If ordered intravenously (IV) : administer through a running maintenanc e fluid over 1 minute followed by a flus h. If patient complains of pain on injection, may dilute 15-30 mg in 5 mL and push over 1 to 2 minutes. ondansetron (ZOFRAN) injection 4 mg (COMPLETED) 1431 (Given - Provider: Kiley Rdz, [place]) 4 mg, Intravenous, ONCE, Administer over 2-5 Minutes, On Marizol 04/22/22 at 1430, For 1 dose, May repeat in 30 minutes as needed, up to 3 doses. Irritant. documented in this encounter Additional Health Concerns Assessment Noted Time PHQ-9 Depression Total Score: 19 09/04/2015 7:20 AM CD T documented as of this encounter Care Teams Car Filler Relationship Specialty Start Date End Date Holland Thomas MD PCP - General object oriented programmer 04/15/20 [address] [address] Amarilys Friedman, MECHANICAL APPLICATIONS ENGINEER Assigned PCP 06/05/21 0605 [place], [place] [id number] documented as of this encounter
--- OUTSIDE RECORDS SUMMARY | 2022-08-31 22:23 | XMS_ITS | Encounter Summary ---
:1990 Author Organization [facility] Address [address] [place] [id number] Care Team Providers Name Role Phone Holland Thomas MD Primary Care Provider [phone] Reason for Visit Reason Comments Vomiting Encounter Details Date Type Department Care Team Description 09/21/2020 Emergency [facility] Non-intractable vomiting with nausea, unspecified vomiting type; [facility] Emergency Hypo kalemia; Room Hypomagnesemia; [address] Prolonged Q[place] [address] [facility] [phone] Social History Tobacco Use Types Packs/Day Years [...] - Inhaled Oxygen Concentration - - Weight 77.1 kg (170 lb) 09/21/2020 9:59 AM VETERANS REHABILITATION COUNSELOR Height 170.2 cm (5' 7) 09/21/2020 9:59 AM VETERANS REHABILITATION COUNSELOR Body Mass Index 26.63 09/21/2020 9:59 AM VETERANS REHABILITATION COUNSELOR documented in this encounter Medications at Time [...] documented as of this encounter ED Notes Carlie Mc RN - 09/21/2020 9:55 AM CST Vomiting since 399. Lethargic and weak. Generalized abdominal pain. States she couldn't stand otherwise I will pass out RANS REHABILITATION COUNSELOR Samantha Jeff PA-C - 09/21/2020 9:23 AM CST EMERGENCY DEPARTMENT ENCOUNTER NAME: Keyla Porter AGE: 30 y.o. female DATE OF : 1990 EVALUATION DATE & TIME: 09/21/2020 9:16 AM PCP: Holland Thomas MD ED PROVIDER: Samantha Jeff PA-C Chief Complaint Patient presents with ??? Emesis FINAL IMPRESSION: 1. Non-intractable vomiting with nausea, unspecified vomiting type 2. Hypokalemia 3. Hypomagnesemia 4. Prolonged Q-T interval on ECG MEDICAL DECISION MAKING: Pertinent Labs & Imaging studies reviewed. (See chart for details) 30 y.o. female with a pertinent history of endometriosis s/p laparotomy x3, s/p hysterectomy, nephrolithiasis, cannabis use disorder, anxiety and depression presents to the Emergency Department for evaluation of nausea, vomiting and abdominal pain since 399. Patient reports she was drinking last night. Denies any drug or cannabis use. Denies diarrhea, bloody stools, hematemesis, chest pain, shortness of breath, fevers, urinary symptoms. Vitals reviewed and notable for bradycardia at times. She is actively vomiting into emesis bag on initial examination. No hematemesis. She has periumbilical and RLQ tenderness on exam. No rebound or guarding. Lungs are CTAB. No flank or CVA tenderness. Differential diagnosis includes but not limited to alcohol induced gastritis, pancreatitis, hepatobiliary etiology, bowel obstruction, appendicitis, nephrolithiasis, UTI/pyelonephritis, mesenteric ischemia, dehydration, GEOFF, electrolyte derangement. IVF, protonix, pepcid, zofran initiated. No leukocytosis or anemia. K 3.3, Cl 109, CO2 16, Mg 1.5. Normal kidney function, LFTs and lipase. Patient continues to vomit despite medications. Haldol and reglan ordered. Toradol ordered for abdominal pain. EKG without ischemic changes however prolonged QT. IV mag replacement ordered. Repeat EKG after Mg shows QT still prolonged. She continues to vomit. Repeat abdominal exam with persistent RLQ pain. Discussed risks/benefits of CT scan and with shared decision making, CT ordered. She was given dilaudid and benadryl. CT with nonspecific periportal edema and multiple too small to characterize hepatic lesions. Suspect alcohol induced gastritis. On repeat evaluation patient finally feeling better. She was able to tolerate oral K replacement. She prefers to discharge home to get some rest. We discussed return precautions and importance of close follow up. Patient expresses understanding and discharged home in stable condition. 0 minutes of critical care time ED COURSE 9:19 AM I met with the patient, obtained history, performed an initial exam, and discussed options and plan for diagnostics and treatment here in the ED. I wore the following PPE throughout the entire patient encounter: surgical mask. The patient did not wear a mask. 11:27 AM Re-evaluated patient. Continued pain. Discussed risks/benefits of CT. Patient would like toproceed with imaging. 12:32 PM RN reports patient is complaining of pain and is requesting Dilaudid. 1:48 PM I rechecked the patient. She tolerated PO challenge and is agreeable for discharge home. Discussed results, discharge, outpatient follow up, supportive cares, and return precautions. Patient isagreeable. At the conclusion of the encounter I discussed the results of all of the tests and the disposition. The questions were answered. The patient acknowledged understanding and was agreeable with the care plan. MEDICATIONS GIVEN IN THE EMERGENCY: Medications naloxone injection 0.2-0.4 mg (NARCAN) (has no administration in time range) Or naloxone injection 0.2-0.4 mg (NARCAN) (has no administration in time range) potassium chloride CR tablet 40 mEq (K-DUR,KLOR-CON) (has no administration in time range) sodium chloride 0.9% 1,000 mL (0 mL Intravenous Stopped 09/21/20 1104) ondansetron injection 4 mg (ZOFRAN) (4 mg Intravenous Given 09/21/20 0952) famotidine 20 mg injection (20 mg Intravenous Given 09/21/20 0954) pantoprazole 40 mg injection (40 mg Intravenous Given 09/21/20 0958) ketorolac injection 30 mg (TORADOL) (30 mg Intravenous Given 09/21/20 1045) metoclopramide injection 10 mg (REGLAN) (10 mg Intravenous Given 09/21/20 1047) haloperidol lactate injection 1 mg (HALDOL) (1 mg Intravenous Given 09/21/20 1043) magnesium sulfate in water 4 gram/50 mL (8 %) IVPB 4 g (4 g Intravenous New Bag 09/21/20 1223) diphenhydrAMINE injection 25 mg (BENADRYL) (25 mg Intravenous Given 09/21/20 1153) sodium chloride 0.9% 1,000 mL (1,000 mL Intravenous New Bag 09/21/20 1223) iohexoL 350 mg iodine/mL injection 100 mL (OMNIPAQUE) (100 mL Intravenous Given 09/21/20 1203) HYDROmorphone injection 0.5 mg (DILAUDID) (0.5 mg Intravenous Given 09/21/20 1239) NEW PRESCRIPTIONS STARTED AT TODAY'S ER VISIT Current Discharge Medication List CONTINUE these medications which have NOT CHANGED Details cyclobenzaprine (FLEXERIL) 10 MG tablet Take 1 [...] duplicate medications found. Please discuss with provider. HPI Patient information was obtained from: Patient Use of Intrepreter: N/A Keyla Porter is a 30 y.o. female with a pertinent history of endometriosis s/p laparotomy x3, s/p hysterectomy, nephrolithiasis, cannabis use disorder, anxiety and depression who presents to this ED by walk in alone dropped of by a friend for evaluation of abdominal pain and vomiting. Patient reports she has been vomiting since 4:00 AM today (about 5 hours ago). No blood in her vomit. Severe nausea. She also reports 10/10 central abdominal pain suddenly onset this morning as well. Pain does not radiate. No palliating or provoking factors noted. She did not take anything for her pain prior to arrival. She reports her bilateral hands feel tingly, and her legs feel numb as well. No diarrhea or fevers. She says she drank alcohol last night, but not a lot. She denies marijuana or drug use last night. No known contact with anyone who has COVID-19. Patient reports she is otherwise healthy and does not have any medical problems. She is not on any daily medications. She denies historyof DM. REVIEW OF SYSTEMS Review of Systems Constitutional: Positive for fatigue. Negative for chills and fever. Respiratory: Negative for cough and shortness of breath. Cardiovascular: Negative for chest pain. Gastrointestinal: Positive for abdominal pain, nausea and vomiting. Negative for blood in stool and diarrhea. Negative for hematemesis Genitourinary: Negative for dysuria, frequency and hematuria. Neurological: Positive for tingling to bilateral hands and feet All other systems reviewed and are negative. PAST MEDICAL HISTORY: Past Medical History: Diagnosis Date ??? Abnormal Pap smear of cervix 2012 Repeat WNL ??? Allergic Morphine ??? Anemia ??? Anxiety ??? 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 Endometriosis dx at 14, 3 laproscopic procedures ??? Endometriosis ??? Kidney stone 1 instance - prior to 2008 ~15 years ??? Malignant hyperthermia due to [...] Procedure: SECTION; Surgeon: Holland Thomas MD; Location: [facility] [place]; Service: ??? COLPOSCOPY 2011 ??? ENDOMETRIAL ABLATION during one of the laparotomies ??? EXPLORATORY LAPAROTOMY 3x - last in 10/2015, 2010, Gyne surgeon in 2015 states no contraindication to vaginal per patient ??? IUD removal 11/13/2015 laproscopic procedure ??? LAPAROSCOPIC HYSTERECTOMY N/A 12/21/2017 Procedure: ROBOTC TOTAL LAPAROSCOPIC HYSTERECTOMY, BILATERAL SALPINGECTOMY ; Surgeon: Holland Thomas MD; Location: [facility]; Service: ??? UT LAP,FULGURATE/EXCISE LESIONS Right 03/25/2017 Procedure: LAPAROSCOPY, OVARIAN CYSTECTOMY; Surgeon: Holland Thomas MD; Location: [facility] OR; Service: Gynecology CURRENT MEDICATIONS: No current facility-administered medications on file prior to encounter. Current Outpatient Medications on File Prior to Encounter Medication Sig ??? cyclobenzaprine (FLEXERIL) 10 MG tablet Take 1 tablet (10 mg total) by mouth 2 (two) times a dayas needed for muscle spasms. ??? ferrous sulfate 325 (65 FE) MG tablet Take 1 tablet by mouth daily with breakfast. ??? gabapentin (NEURONTIN) 300 MG capsule Take 1 capsule (300 mg total) by mouth 3 (three) times a day. ??? HYDROcodone-acetaminophen 5-325 mg per tablet Take 1 tablet by mouth every 4 (four) hours as needed for pain. ??? ibuprofen (ADVIL,MOTRIN) 600 MG tablet Take 1 tablet (600 mg total) by mouth every 6 (six) hoursas needed for pain. ??? metoclopramide (REGLAN) 10 MG tablet Take 1 tablet (10 mg total) by mouth every 6 (six) hours. ??? metoclopramide (REGLAN) 10 MG tablet Take 1 tablet (10 mg total) by mouth every 6 (six) hours asneeded for nausea. ??? ondansetron (ZOFRAN ODT) 4 MG disintegrating tablet Take 1 tablet (4 mg total) by mouth every 8 (eight) hours as needed. ??? oxyCODONE (ROXICODONE) 5 MG immediate release tablet Take 1 tablet (5 mg total) by mouth every 6(six) hours as needed for pain. ??? SUMAtriptan (IMITREX) 50 MG tablet Take 1 tablet (50 mg total) by mouth once as needed for migraine. May repeat after 2 hours X 1 if incomplete relief. ALLERGIES: Allergies Allergen Reactions ??? Blood-Group Specific Substance [...] ??? Financial resource strain: None ??? Food insecurity Worry: None Inability: None ??? Transportation needs Medical: None Non-medical: None Tobacco Use ??? Smoking status: Former Smoker Quit date: 03/14/2019 Years since quittin.5 ??? Smokeless tobacco: Never Used Substance and Sexual Activity ??? Alcohol use: Yes ??? Drug use: No ??? Sexual activity: Yes control/protection: I.U.D., None Lifestyle ??? Physical activity Days per week: None Minutes per session: None ??? Stress: None Relationships ??? Social connections Talks on phone: None Gets together: None Attends mandaeism service: None Active member of club or organization: None Attends meetings of clubs or organizations: None Relationship status: None ??? Intimate partner violence Fear of current or ex partner: None Emotionally abused: None Physically abused: None Forced sexual activity: None Other Topics Concern ??? None Social History Narrative ??? None VITALS: Patient Vitals for the past 24 hrs: BP Temp Temp src Pulse Resp SpO2 Height Weight 09/21/20 1330 130/77 -- -- (!) 47 (!) 45 99 % -- -- 09/21/20 1315 127/67 -- -- (!) 47 (!) 50 99 % -- -- 09/21/20 1300 116/64 -- -- (!) 52 -- 98 % -- -- 09/21/20 1245 113/65 -- -- (!) 58 -- 97 % -- -- 09/21/20 1230 110/63 -- -- (!) 57 -- 100 % -- -- 09/21/20 1215 116/71 -- -- 65 -- 100 % -- -- 09/21/20 1145 117/72 -- -- (!) 47 -- 100 % -- -- 09/21/20 1130 (!) 121/94 -- -- 65 -- 97 % -- -- 09/21/20 1115 118/66 -- -- (!) 47 -- 99 % -- -- 09/21/20 1100 131/79 -- -- 62 -- 100 % -- -- 09/21/20 1045 129/77 -- -- 66 -- 100 % -- -- 09/21/20 1030 124/71 -- -- (!) 50 -- 100 % -- -- 09/21/20 1000 131/68 -- -- (!) 47 -- 100 % -- -- 09/21/20 0959 124/86 97.2 ??F (36.2 ??C) Temporal (!) 59 24 100 % 5' 7 (1.702 m) 170 lb (77.1 kg) 09/21/20 0930 123/75 -- -- (!) 52 -- 100 % -- -- 09/21/20 0922 -- -- -- (!) 58 -- 100 % -- -- 09/21/20 0921 124/83 -- -- -- -- -- -- -- PHYSICAL EXAM Constitutional: Well developed, Well nourished, actively vomiting in emesis bag. No hematemesis. HENT: Normocephalic, Atraumatic, Bilateral external ears normal, Oropharynx normal, mucous membranesmoist Neck- Normal range of motion, No tenderness, Supple, No stridor. Eyes: PERRL, Conjunctiva normal, No discharge. Respiratory: Normal breath sounds, No respiratory distress, No wheezing, Speaks full sentences easily. No cough. Cardiovascular: Bradycardia, Regular rhythm, No murmurs, No rubs, No gallops. Chest wall nontender. GI: Soft, periumbilical and RLQ tenderness, No masses, No flank or CVA tenderness. No rebound or guarding. Musculoskeletal: 2+ DP pulses. No edema. No cyanosis, No clubbing. Good range of motion in all majorjoints. No tenderness to palpation or major deformities noted. Integument: Warm, Dry, No erythema, No rash. No petechiae. Neurologic: Alert & oriented x 3, Normal motor function, Normal sensory function, No focal deficits noted. Normal gait. Psychiatric: Affect normal, Judgment normal, Mood normal. Cooperative. LAB: All pertinent labs reviewed and interpreted. Results for orders placed or performed during the hospital encounter of 09/21/20 HM2 (CBC W/O DIFF) Result Value Ref Range WBC 8.3 4.0 - 11.0 thou/uL RBC 4.18 3.80 - 5.40 mill/uL Hemoglobin 12.9 12.0 - 16.0 g/dL Hematocrit 37.9 35.0 - 47.0 % MCV 91 80 - 100 fL MCH 30.9 27.0 - 34.0 pg MCHC 34.0 32.0 - 36.0 g/dL RDW 12.6 11.0 - 14.5 % Platelets 244 140 - 440 thou/uL MPV 10.3 8.5 - 12.5 fL Comprehensive Metabolic Panel Result Value Ref Range Sodium 141 136 - 145 mmol/L Potassium 3.3 (L) 3.5 - 5.0 mmol/L Chloride 109 (H) 98 - 107 mmol/L CO2 16 (L) 22 - 31 mmol/L Anion Gap, Calculation 16 5 - 18 mmol/L Glucose 124 70 - 125 mg/dL BUN 13 8 - 22 mg/dL Creatinine 0.81 0.60 - 1.10 mg/dL GFR MDRD Af Amer >60 >60 mL/min/1.73m2 GFR MDRD Non Af Amer >60 >60 mL/min/1.73m2 Bilirubin, Total 0.4 0.0 - 1.0 mg/dL Calcium 8.8 8.5 - 10.5 mg/dL Protein, Total 8.3 (H) 6.0 - 8.0 g/dL Albumin 4.4 3.5 - 5.0 g/dL Alkaline Phosphatase 39 (L) 45 - 120 U/L AST 25 0 - 40 U/L ALT 22 0 - 45 U/L Lipase Result Value Ref Range Lipase 10 0 - 52 U/L Magnesium Result Value Ref Range Magnesium 1.5 (L) 1.8 - 2.6 mg/dL ECG 12 lead nursing unit performed Result Value Ref Range SYSTOLIC BLOOD PRESSURE 129 mmHg DIASTOLIC BLOOD PRESSURE 77 mmHg VENTRICULAR RATE 54 BPM ATRIAL RATE 54 BPM P-R INTERVAL 160 ms QRS DURATION 92 ms Q-T INTERVAL 530 ms QTC CALCULATION (BEZET) 502 ms P Bono 37 degrees R AXIS 47 degrees T AXIS -3 degrees MUSE DIAGNOSIS Sinus bradycardia with marked sinus arrhythmia Nonspecific T wave abnormality Prolonged QT Abnormal ECG When compared with ECG of 25-JAN-2020 09:01, QT has lengthened Confirmed by SEE ED PROVIDER NOTE FOR, ECG INTERPRETATION ([id number]), business editor [facility] ([id number]) on 09/21/2020 12:37:06 PM RADIOLOGY: Reviewed all pertinent imaging. Please see official radiology report. Ct Abdomen Pelvis Without Oral With Iv Contrast Result Date: 09/21/2020 EXAM: CT ABDOMEN PELVIS WO ORAL W IV CONTRAST LOCATION: [facility] DATE/TIME: 09/21/2020 12:07 PM INDICATION: periumbilical abdominal pain, nausea, vomiting COMPARISON: Ultrasound 05/29/[address] abdomen and pelvis 05/29/2020 TECHNIQUE: CT scan of the abdomen and pelvis was p erformed following injection of IV contrast. Multiplanar reformats were obtained. Dose reduction techniques were used. CONTRAST: Iohexol (Omni) 350 100 mL FINDINGS: LOWER CHEST: Normal. HEPATOBILIARY: Nonspecific periportal edema. Numerous too small to characterize hypodense structures throughout the left and right hepatic lobes. Unremarkable gallbladder and bile ducts. PANCREAS: Normal. SPLEEN: Normal. ADRENAL GLANDS: Normal. KIDNEYS/BLADDER: Normal. BOWEL: Normal caliber small bowel. Normal caliber appendix versus appendiceal stump. Unremarkable colon. No free air or free fluid. LYMPH NODES: Stable prominent likely reactive portal caval and celiac axis lymph nodes, measuring up to 9 mm short axis dimension. VASCULATURE: Unremarkable. PELVIC ORGANS: Post hysterectomy. MUSCULOSKELETAL: Normal. 1. Nonspecific periportal edema which may reflect sequelae of IV hydration or hepatitis. 2. Multipletoo small to characterize hepatic hypodense structures, likely incidental cysts or biliary hamartomas. 3. No evidence of a bowel obstruction or enterocolitis. EKG: Performed at: 10:48 Impression: Sinus bradycardia with marked sinus arrhythmia, Nonspecific T waved abnormality, Prolonged QT Rate: 54 bpm Rhythm: sinus bradycardia with marked sinus arrhythmia Bono: 47 UT Interval: 160 ms QRS Interval: 92 ms QTc Interval: [address] ST Changes: no acute ST elevations or depressions Comparison: QT has lengthened from last EKG on 25-JAN-2020 Performed at: 13:15 Impression: Sinus bradycardia with marked sinus arrhythmia, Nonspecific T wave abnormality Rate: 46 bpm Rhythm: sinus bradycardia with marked sinus arrhythmia Bono: 36 UT Interval: 168 ms QRS Interval: 94 ms QTc Interval: 484 ms ST Changes: no acute ST elevations or depressions Comparison: QT very similar, still prolonged when compared to EKG performed today at 10:48 I have independently reviewed and interpreted the EKG(s) documented above. Reviewed with Dr. Rowley. I, Deja Isaac, am serving as a scribe to document services personally performed by Samantha Jeff PA-C based on my observation and the provider's statements to me. I, Samantha Jeff PA-C attest that Deja Isaac is acting in a scribe capacity, has observed my performance of the services and has documented them in accordance with my direction. Samantha Jeff PA-C Emergency Medicine [facility] Samantha Jeff PA-C 09/24/20 0043 RANS REHABILITATION COUNSELOR documented in this encounter Plan of Treatment Not on filedocumented as of this encounter Procedures Procedure Name Priority Date/Time Associated Comments Diagnosis EKG 12-LEAD, TRACING STAT 09/21/2020 12:35 Res ults for this ONLY PM VETERANS REHABILITATION COUNSELOR procedure are i n the results section. CT ABDOMEN PELVIS W Routine 09/21/2020 12:07 Resu lts for this CONTRAST PM VETERANS REHABILITATION COUNSELOR procedure are i n the results section. EKG 12-LEAD, TRACING STAT 09/21/2020 10:40 Res ults for this ONLY AM V[facility]ERANS REHABILITATION COUNSELOR procedure are i n the results section. MAGNESIUM Routine 09/21/2020 9:48 AM Results f or this V[employer]ERANS REHABILITATION COUNSELOR procedure are i n the results section. LIPASE STAT 09/21/2020 9:48 AM Results f or this V[facility]ERANS REHABILITATION COUNSELOR procedure are i n the results section. COMPREHENSIVE STAT 09/21/2020 9:48 AM Results for this METABOLIC PANEL VETERANS REHABILITATION COUNSELOR procedure ar e in the results section. CBC WITH PLATELETS STAT 09/21/2020 9:48 AM Res ults for this VETERANS REHABILITATION COUNSELOR procedure are i n the results section. documented in this encounter Results EKG 12-lead, tracing only (09/21/2020 12:35 PM VETERANS REHABILITATION COUNSELOR) [facility] Method Time Signature Systolic Blood 116 mmHg 09/21/2020 HE Pressure 5:18 PM CARDIOLOGY V[facility]ERANS REHABILITATION COUNSELOR CONVERSION Diastolic Blood 64 mmHg 09/21/2020 HE Pressure 5:18 PM CARDIOLOGY V[facility]ERANS REHABILITATION COUNSELOR CONVERSION Ventricular Rate 46 BPM 09/21/2020 HE 5:18 PM CARDIOLOGY V[facility]ER[employer] REHABILITATION COUNSELOR CONVERSION Atrial Rate 46 BPM 09/21/2020 HE 5:18 PM CARDIOLOGY V[facility]ERANS REHABILITATION COUNSELOR CONVERSION UT Interval 168 ms 09/21/2020 HE 5:18 PM CARDIOLOGY V[facility]ERANS REHABILITATION COUNSELOR CONVERSION QRS Duration 94 ms 09/21/2020 HE 5:18 PM CARDIOLOGY V[facility]ERANS REHABILITATION COUNSELOR CONVERSION QT 554 ms 09/21/2020 HE 5:18 PM CARDIOLOGY V[facility]ERANS REHABILITATION COUNSELOR CONVERSION QTc 484 ms 09/21/2020 HE 5:18 PM CARDIOLOGY V[facility]ERANS REHABILITATION COUNSELOR CONVERSION P Bono 42 degrees 09/21/2020 HE 5:18 PM CARDIOLOGY V[facility]ER[facility] REHABILITATION COUNSELOR CONVERSION R AXIS 36 degrees 09/21/2020 HE 5:18 PM CARDIOLOGY V[employer]ERANS REHABILITATION COUNSELOR CONVERSION T Bono 63 degrees 09/21/2020 HE 5:18 PM CARDIOLOGY V[facility]ERANS REHABILITATION COUNSELOR CONVERSION Interpretation Sinus bradycardia with sinus arrhythmia 09/21/2020 HE ECG Nonspecific T wave abnormality 5:18 PM CARDIOLOGY Abnormal ECG V[facility]ERANS REHABILITATION COUNSELOR CONVERSION When compared with ECG of 21-SEP-2020 10:48, No significant change was found Confirmed by SEE ED PROVIDER NOTE FOR, ECG INTERPRETATION ([id number]), business editor [facility] ([id number]) on 09/21/2020 5:18:35 PM Specimen Anatomical Collection Method Collection Time Receive d Time (Source) Location / / Volume Laterality 09/21/2020 12:35 09/21/2020 5:18 PM VETERANS REHABILITATION COUNSELOR PM [facility] REH[employer]ILITATION COUNSELOR Samantha Jeff MARLA ECG ORDERABLES Performing Organization Address City/State/ZIP Code Phon e Number HE CARDIOLOGY CONVERSION CT Abdomen Pelvis w Contrast (09/21/2020 12:07 PM VETERANS REHABILITATION COUNSELOR) Anatomical Region Laterality Modality Abdomen/Pelvis, SUBRAD CT BODY, UMP CT ABDOMEN PELVIS, Computed Tomography RAD CT Specimen (Source) Anatomical Location Collection Method / Collectio n Time Received Time / Laterality Volume Impressions 09/21/2020 12:25 PM VETERANS REHABILITATION COUNSELOR 1. ??Nonspecific periportal edema which may reflect sequelae of IV hydration or hepatitis. 2. ??Multiple too small to characterize hepatic hypodense structures, likely incidental cysts or biliary hamartomas. 3. ??No evidence of a bowel obstruction or enterocolitis. Narrative 09/21/2020 12:25 PM VETERANS REHABILITATION COUNSELOR EXAM: CT ABDOMEN PELVIS WO ORAL W IV CONTRAST LOCATION: [facility] DATE/TIME: 09/21/2020 12:07 PM INDICATION: periumbilical abdominal pain , nausea, vomiting COMPARISON: Ultrasound 05/29/[address] abdomen and pelvis 05/29/2020 TECHNIQUE: CT scan of the abdomen and pe lvis was performed following injection of IV contrast. Multiplanar reformats were obtained. Dose reduction techniques were used. CONTRAST: Iohexol (Omni) 350 100 mL FINDINGS: LOWER CHEST: Normal. HEPATOBILIARY: Nonspecific periportal ed [place]. Numerous too small to characterize hypodense structures throughout the left and right hepatic lobes. Unremarkable gallbladder and bile ducts. PANCREAS: Normal. SPLEEN: Normal. ADRENAL GLANDS: Normal. KIDNEYS/BLADDER: Normal. BOWEL: Normal caliber small bowel. Zaira l caliber appendix versus appendiceal stump. Unremarkable colon. No free air or free fluid. LYMPH NODES: Stable prominent likely francisco ctive portal caval and celiac axis lymph nodes, measuring up to 9 mm short axis dimension. VASCULATURE: Unremarkable. PELVIC ORGANS: Post hysterectomy. MUSCULOSKELETAL: Normal. Procedure Note Kenny Torrez MD - 04/30/2021Formatt ing of this note might be different from the original. EXAM: CT ABDOMEN PELVIS WO ORAL W IV CON TRAST LOCATION: [facility] DATE/TIME: 09/21/2020 12:07 PM INDICATION: periumbilical abdominal pain , nausea, vomiting COMPARISON: Ultrasound 05/29/[address] abdomen and pelvis 05/29/2020 TECHNIQUE: CT scan of the abdomen and pe lvis was performed following injection of IV contrast. Multiplanar reformats were obtained. Dose reduction techniques were used. CONTRAST: Iohexol (Omni) 350 100 mL FINDINGS: LOWER CHEST: Normal. HEPATOBILIARY: Nonspecific periportal ed [place]. Numerous too small to characterize hypodense structures throughout the left and right hepatic lobes. Unremarkable gallbladder and bile ducts. PANCREAS: Normal. SPLEEN: Normal. ADRENAL GLANDS: Normal. KIDNEYS/BLADDER: Normal. BOWEL: Normal caliber small bowel. Zaira l caliber appendix versus appendiceal stump. Unremarkable colon. No free air or free fluid. LYMPH NODES: Stable prominent likely francisco ctive portal caval and celiac axis lymph nodes, measuring up to 9 mm short axis dimension. VASCULATURE: Unremarkable. PELVIC ORGANS: Post hysterectomy. MUSCULOSKELETAL: Normal. IMPRESSION: 1. Nonspecific periportal edema which ma y reflect sequelae of IV hydration or hepatitis. 2. Multiple too small to characterize he patic hypodense structures, likely incidental cysts or biliary hamartomas. 3. No evidence of a bowel obstruction or enterocolitis. Samantha Jeff PA-C IMG CT ORDERABLES EKG 12-lead, tracing only (09/21/2020 10:40 AM [facility] [employer] COUNSEL[facility]) [facility] Method Time Signature Systolic Blood 129 mmHg 09/21/2020 HE Pressure 12:37 PM CARDIOLOGY [facility] [employer]SEL[facility] CONVERSION Diastolic Blood 77 mmHg 09/21/2020 HE Pressure 12:37 PM CARDIOLOGY [facility] CONVERSION Ventricular Rate 54 BPM 09/21/2020 HE 12:37 PM CARDIOLOGY [facility]SEL[employer] CONVERSION Atrial Rate 54 BPM 09/21/2020 HE 12:37 PM CARDIOLOGY [facility]SEL[facility] CONVERSION UT Interval 160 ms 09/21/2020 HE 12:37 PM CARDIOLOGY [facility]SEL[facility] CONVERSION QRS Duration 92 ms 09/21/2020 HE 12:37 PM CARDIOLOGY [facility] COUNSELOR CONVERSION QT 530 ms 09/21/2020 HE 12:37 PM CARDIOLOGY [facility] COUNSEL[facility] CONVERSION QTc 502 ms 09/21/2020 HE 12:37 PM CARDIOLOGY [facility] COUNSELOR CONVERSION P Bono 37 degrees 09/21/2020 HE 12:37 PM CARDIOLOGY [facility]SEL[facility] CONVERSION R AXIS 47 degrees 09/21/2020 HE 12:37 PM CARDIOLOGY [facility]SEL[facility] CONVERSION T Bono -3 degrees 09/21/2020 HE 12:37 PM CARDIOLOGY [facility] COUNSEL[facility] CONVERSION Interpretation Sinus bradycardia with marked sinus arrhythmia 09/21/2020 HE ECG Nonspecific T wave abnormality 12:37 PM CARDIOLOGY Prolonged QT [facility] [employer] CONVERSION Abnormal ECG When compared with ECG of 25-JAN-2020 09:01, QT has lengthened Confirmed by SEE ED PROVIDER NOTE FOR, ECG INTERPRETATION ([id number]), business editor [facility] ([id number]) on 09/21/2020 12:37:06 PM Specimen Anatomical Collection Method Collection Time Receive d Time (Source) Location / / Volume Laterality 09/21/2020 10:40 09/21/2020 AM [facility] [facility] 12:37 PM [facility] Samantha Jeff PA-C ECG ORDERABLES Performing Organization Address City/State/ZIP Code Phon e Number HE CARDIOLOGY CONVERSION (ABNORMAL) Magnesium (09/21/2020 9:48 AM [facility] [employer]ILITATION COUNSELOR) athologist Signature Magnesium 1.5 (L) 1.8 - 2.6 09/21/2020 [facility] mg/dL 11:15 AM [facility] [employer] COUNSELOR [facility] Specimen Anatomical Collection Method Collection Time Receive d Time (Source) Location / / Volume Laterality Blood specimen VAD(CVC, PICC) / 09/21/2020 9:48 AM 11/2019 (specimen) Unknown [facility] [facility] 10:01 AM [facility] COUNSELOR Samantha Jeff PA-C LAB - BLOOD ORDERABLES Performing Organization Address City/[facility] [place] [address] [place] [id number], [place] [address] LABORATORY Lipase (09/21/2020 9:48 AM [facility] [employer] COUNSELOR) athologist Signature Lipase 10 0 - 52 U/L 09/21/2020 [facility]ALTH 10:26 AM [facility] [employer] COUNSELOR [facility] Specimen Anatomical Collection Method Collection Time Receive d Time (Source) Location / / Volume Laterality Blood specimen VAD(CVC, PICC) / 09/21/2020 9:48 AM 11/2019 (specimen) Unknown [facility] [employer] COUNSEL[facility] 10:01 AM [facility] COUNSELOR Samantha Jeff PA-C LAB - BLOOD ORDERABLES Performing Organization Address City/[facility]/[place]IP [place] [address] [facility] [address] [facility] [place] [address] LABORATORY (ABNORMAL) Comprehensive metabolic panel (09/21/2020 9:48 AM [facility]) [facility] Method Time Signature Sodium 141 136 - 145 09/21/2020 [facility] mmol/L 10:26 AM [facility] Potassium 3.3 (L) 3.5 - 5.0 09/21/2020 [facility] mmol/L 10:26 AM [facility] Chloride 109 (H) 98 - 107 09/21/2020 [facility] mmol/L 10:26 AM [facility] Carbon Dioxide 16 (L) 22 - 31 09/21/2020 [facility] (CO2) mmol/L 10:26 AM [facility] Anion Gap 16 5 - 18 09/21/2020 [facility] mmol/L 10:26 AM [facility] Glucose 124 70 - 125 09/21/2020 [facility] mg/dL 10:26 AM [facility] Urea Nitrogen 13 8 - 22 09/21/2020 [facility] mg/dL 10:26 AM [facility] Creatinine 0.81 0.60 - 09/21/2020 [facility] 1.10 mg/dL 10:26 AM [facility] GFR Estimate If >60 >60 09/21/2020 HEALTH Black mL/min/1.7 10:26 [address] GFR Estimate >60 >60 09/21/2020 [facility] mL/min/1.7 10:[address] Bilirubin Total 0.4 0.0 - 1.0 09/21/2020 [facility] mg/dL 10:26 AM [facility] Calcium 8.8 8.5 - 10.5 09/21/2020 [facility] mg/dL 10:26 AM [facility] Protein Total 8.3 (H) 6.0 - 8.0 09/21/2020 [facility] g/dL 10:26 AM [facility] Albumin 4.4 3.5 - 5.0 09/21/2020 [facility] g/dL 10:26 AM [facility] Alkaline 39 (L) 45 - 120 09/21/2020 [facility] Phosphatase U/L 10:26 AM [facility] AST 25 0 - 40 U/L 09/21/2020 HE[facility] 10:26 AM [facility] ALT 22 0 - 45 U/L 09/21/2020 [facility] 10:26 AM [facility] Specimen Anatomical Collection Method Collection Time Receive d Time (Source) Location / / Volume Laterality Blood specimen VAD(CVC, PICC) / 09/21/2020 9:48 AM 11/2019 (specimen) Unknown [facility] COUNSELOR 10:01 AM [facility]ILITATION COUNSELOR Narrative [facility] - 09/21/2020 10:26 AM [facility] REH[employer]ILITATION COUNSELOR Fasting Glucose reference range is 70-99 mg/dL per [employer] (ADA) [employer]. Samantha Jeff PA-C LAB - BLOOD ORDERABLES Performing Organization Address City/State/ZIP Code Phon e Number [facility] [place] [address] [place] [address] [place], [place] [address] LABORATORY CBC with platelets (09/21/2020 9:48 AM V[facility] REH[employer]ILITATION COUNSELOR) P athologist Signature WBC 8.3 4.0 - 11.0 09/21/2020 HE[facility] thou/uL 10:03 AM [facility] RBC Count 4.18 3.80 - 09/21/2020 HEALTH 5.40 10:03 AM [facility] mill/uL NDS LABORATORY Hemoglobin 12.9 12.0 - 09/21/2020 HEALTH 16.0 g/dL 10:03 AM [facility] Hematocrit 37.9 35.0 - 09/21/2020 HEALTH 47.0 % 10:03 AM [facility] MCV 91 80 - 100 09/21/2020 HEALTH fL 10:03 AM [facility] MCH 30.9 27.0 - 09/21/2020 HEALTH 34.0 pg 10:03 AM [facility] MCHC 34.0 32.0 - 09/21/2020 HEALTH 36.0 g/dL 10:03 AM [facility] RDW 12.6 11.0 - 09/21/2020 HEALTH 14.5 % 10:03 AM [facility] Platelet Count 244 140 - 440 09/21/2020 HEALTH thou/uL 10:03 AM [facility] Mean Platelet 10.3 8.5 - 12.5 09/21/2020 HEALTH Volume fL 10:03 AM [facility] Specimen Anatomical Collection Method Collection Time Receive d Time (Source) Location / / Volume Laterality Blood specimen VAD(CVC, PICC) / 09/21/2020 9:48 AM 11/2019 (specimen) Unknown [facility] COUNSELOR 10:01 AM [facility] COUNSELOR Samantha Jeff PA-C LAB - BLOOD ORDERABLES Performing Organization Address City/State/ZIP Code Phon e Number [facility] [place] [address] [address] [place], [place] [address] LABORATORY documented in this encounter Visit Diagnoses Diagnosis Non-intractable vomiting with nausea, un specified vomiting type Hypokalemia Hypopotassemia Hypomagnesemia Disorders of magnesium metabolism Prolonged Q-T interval on ECG Nonspecific abnormal electrocardiogram ( ECG) (EKG) documented in this encounter Additional Health Concerns Assessment Noted Time PHQ-9 Depression Total Score: 19 09/04/2015 7:20 AM CD T documented as of this encounter Care Teams Windows Vmware Administrator Relationship Specialty Start Date End Date Holland Thomas MD PCP - General hand bookbinder 04/15/20 [facility] MIMA CHEUNG [address] [address] documented as of this encounter
--- OUTSIDE RECORDS SUMMARY | 2022-08-31 22:23 | XMS_ITS | Encounter Summary ---
:1990 Author Organization [place] Address [facility] [place] [address] Care Team Providers Name Role Phone No Ref-Primary, Physician Primary Care Provider [phone] Reason for Visit Reason Comments Migraine Pharyngitis Encounter Details Date Type Department Care Team Description 08/14/2019 [facility] Mariluz Cruz MD Migraine without status migrainosus, not intractable, unspecified migraine type; [facility] [address] Pharyngitis due to other organism; Emergency Room [place], [place] Sore throat [address] [address] [place] [address] [phone] Social History Tobacco Use Types Packs/Day Years [...] Oxygen Concentration - - Weight 74.8 kg (164 lb 14.5 oz) 08/14/2019 12:01 PM CDT Height 170.2 cm (5' 7) 08/14/2019 12:01 PM CDT Body Mass Index 25.83 08/14/2019 12:01 PM CDT documented in this encounter Medications [...] documented as of this encounter ED Notes Mariluz Cruz E - 08/14/2019 12:52 PM CDT EMERGENCY DEPARTMENT ENCOUNTER NAME: Keyla Porter AGE: 29 y.o. female DATE OF : 1990 EVALUATION DATE & TIME: 08/14/2019 12:22 PM PCP: Holland Thomas MD ED PROVIDER: Mariluz Cruz M.D. Chief Complaint Patient presents with ??? Migraine ??? Sore Throat FINAL IMPRESSION: 1. Migraine without status migrainosus, not intractable, unspecified migraine type 2. Pharyngitis due to other organism 3. Sore throat MEDICAL DECISION MAKING: Pertinent Labs & Imaging studies reviewed. (See chart for details) 29 y.o. female presents to the Emergency Department for evaluation of migraine and sore throat. Vitals on arrival reassuring. Patient hemodynamically stable and afebrile. History and physical exam, as below. Records reviewed. Patient has been seen in the emergency department twice for these complaintssince 08/09/2019. Please see those notes for details. I considered a broad differential diagnosis including, but not limited to: migraine, tension headache, cluster headache, sinusitis. No falls to suggest traumatic epidural/subdural hematoma. Non-focal neuro exam so have low suspicion for intracranial process such as CVA, SAH, SDH. No fever or infections symptoms to suggest meningitis or encephalitis. Patient does have a history of migraines headaches but states that those are somewhat different and that they are typically relieved by her home Imitrexand occur in a slightly different location. She presents today, however, is consistent to what she has been experiencing for the past few days and for what she was previously evaluated in the emergencydepartment for. Given history an absence of s/s suggestive of concerning intracranial pathology, reassuring neuro exam, feel that etiology most likely a primary/benign headache. No indications for lab/imaging workup on emergent basis. Discussed options for management. She would like to try something other than her home Imitrex. Will plan to try IIV toradol, compazine, benadryl and decadron. With regards to sore throat, continued strep pharyngitis, other viral pharyngitis/URI. No signs/symptoms of peritonsillar abscess or deep space infection. Patient tolerating secretions without issue. She was empirically treated for strep pharyngitis Bicillin and dose of steroids on 08/10/2019. Strep swab was not obtained at that time. Plan to check strep today and give Decadron, as above. ED Course as of Aug 14 140 Tue Aug 14, 2019 1343 Rapid Strep A Antigen: No Group A Strep detected, presumptive negative [SM] ED Course User Index [SM] Mariluz Cruz MD After the above interventions, patient reported resolution of headache and symptoms. I reviewed results and explained that her sore throat may still be secondary to pharyngitis, just not a strep infection. Recommended supportive care, Tylenol/ibuprofen, fluids, and rest. She was comfortable and felt re assured by these results and was eager to go home. I instructed Ms. Porter to follow-up with her primary care provider. We discussed warning signs andsymptoms, and I instructed Ms. Porter to return to the emergency department immediately if she develops any new or worsening symptoms. I provided additional verbal discharge instructions. Ms. Porter e xpressed understanding and agreement with this plan of care, her questions were answered, and she was discharged in stable condition. ED COURSE: 12:38 PM I met with the patient, obtained history, performed an initial exam, and discussed options and plan for diagnostics and treatment here in the ED. 2:00 PM I updated the patient on results and further course of action here in the ED. 2:06 PM We discussed the plan for discharge and the patient is agreeable. Reviewed supportive cares,symptomatic treatment, outpatient follow up, and reasons to return to the Emergency Department. Patient to be discharged by ED RN. MEDICATIONS GIVEN IN THE ED: Medications dexAMETHasone (DECADRON) tablet 6 mg (has no administration in time range) prochlorperazine injection 10 mg (COMPAZINE) (10 mg Intravenous Given 08/14/19 1310) ketorolac injection 15 mg (TORADOL) (15 mg Intravenous Given 08/14/19 1309) diphenhydrAMINE injection 25 mg (BENADRYL) (25 mg Intravenous Given 08/14/19 1309) NEW PRESCRIPTIONS STARTED AT TODAY'S VISIT: Current Discharge Medication List CONTINUE these medications which have NOT CHANGED Details ferrous sulfate 325 (65 FE) MG tablet Take 1 tablet by mouth daily with breakfast. gabapentin (NEURONTIN) 100 MG capsule 1 cap at bedtime x 3 days. Then may take 2 caps at bedtime x 3days, then may take 3 caps at bedtime Qty: 60 capsule, Refills: 2 Associated Diagnoses: Lumbar radicular pain; Sleep difficulties ibuprofen (ADVIL,MOTRIN) 600 MG tablet Take 1 tablet (600 mg total) by mouth every 6 (six) hours as needed for pain. Qty: 30 tablet, Refills: 0 Associated Diagnoses: Pharyngitis due to Streptococcus species methylPREDNISolone (MEDROL, ANNA,) 4 mg tablet follow package directions Qty: 21 tablet, Refills: 0 Associated Diagnoses: Lumbar radicular pain metoclopramide (REGLAN) 10 MG tablet Take 1 tablet (10 mg total) by mouth every 6 (six) hours as needed for nausea. Qty: 30 tablet, Refills: 0 Associated Diagnoses: Migraine with aura and with status migrainosus, not intractable nabumetone (RELAFEN) 500 MG tablet Take 1-2 tablets (500-1,000 mg total) by mouth 2 (two) times a day as needed for pain. Qty: 60 tablet, Refills: 0 Associated Diagnoses: Lumbar spine pain; Lumbar radicular pain SUMAtriptan (IMITREX) 50 MG tablet Take 1 tablet (50 mg total) by mouth once as needed for migraine.May repeat after 2 hours X 1 if incomplete relief. Qty: 10 tablet, Refills: 0 Associated Diagnoses: Migraine with aura and with status migrainosus, not intractable HPI Keyla Porter is a 29 y.o. female with a pertinent history of cannabis use disorder, suicidal thoughts, depression with anxiety, and hypotension who presents to [facility] ED for evaluation of a migraine and sore throat. Per chart review, the patient was seen on 08/09/[address] [facility] ED for evaluation of a migraine. Thepatient had some abdominal pain, and basic labs were ran. They were unremarkable and following fluids and treatment the patient wanted to be discharged. Recommendation to follow-up with PCP, and prescriptions for sumatriptan and Reglan. Per chart review, the patient was seen on 08/10/19 in ED for evaluation of a sore throat. The patient a had some significant oropharyngeal exudate and erythema, she also has cervical lymphadenopathy,and given recommendation for strep pharyngitis. The patient preferred a Bicillin injection. She was also given Decadron and Ibuprofen for edema and pain. Advised to take Ibuprofen in the following daysand to return to ED with worsening symptoms. The patient reports this continued ocular migraine that started five days ago. She adds her right eye was swollen shut (resolved). She adds the Imitrex she usually takes for migraines has not worked (nothing taken today), and she adds this migraine feel different than previous migraines. She says thatSaturday she developed some tingling and swelling of her lips. The patient said the treatment for her throat worked, but yesterday the symptoms returned. These include a sore throat, white tonsils, bad breath, and a swollen neck. She also notes that there was redness and swelling at the injection site from the Bicillin. She has taken Benadryl for this. The patient has also experienced a fever, chills, vomiting, nausea, congestion, cough, and right eyephotophobia. REVIEW OF SYSTEMS Review of Systems Constitutional: Positive for chills and fever. HENT: Positive for congestion and sore throat. Positive for tingling and swelling of lips, white tonsils Eyes: Positive for photophobia (Right). Positive for right eye swollen shut Respiratory: Positive for cough. Negative for shortness of breath. Cardiovascular: Negative for chest pain. Gastrointestinal: Positive for nausea and vomiting. Negative for abdominal pain, constipation and diarrhea. Genitourinary: Negative for dysuria, frequency, hematuria and urgency. Musculoskeletal: Negative. Positive for swollen neck Skin: Negative. Neurological: Positive for headaches (Right ocualr migraine). Negative for weakness and numbness. Psychiatric/Behavioral: Negative. All other systems reviewed and are negative. PAST MEDICAL HISTORY: Past Medical History: Diagnosis Date ??? Abnormal Pap smear of cervix 2011 ??? Allergic ??? Anemia ??? Anxiety ??? Depression ??? Endometriosis ??? Endometriosis ??? Kidney stone ??? Malignant hyperthermia due to anesthesia ??? Migraine ??? PID (pelvic inflammatory disease) ??? depression 2011 ??? Urinary tract infection ??? Varicella PAST SURGICAL HISTORY: Past Surgical History: Procedure Laterality Date ??? SECTION N/A 11/17/2016 Procedure: SECTION; Surgeon: Holland Thomas MD; Location: [facility] L+D MD; Service: ??? COLPOSCOPY 2011 ??? ENDOMETRIAL ABLATION during one of the laparotomies ??? EXPLORATORY LAPAROTOMY 3x - last in 10/2015, 2010, Gyne surgeon in 2015 states no contraindication to vaginal per patient ??? IUD removal 11/13/2015 laproscopic procedure ??? LAPAROSCOPIC HYSTERECTOMY N/A 12/21/2017 Procedure: ROBOTC TOTAL LAPAROSCOPIC HYSTERECTOMY, BILATERAL SALPINGECTOMY ; Surgeon: Holland Thomas MD; Location: [facility]; Service: ??? NV LAP,FULGURATE/EXCISE LESIONS Right 03/25/2017 Procedure: LAPAROSCOPY, OVARIAN CYSTECTOMY; Surgeon: Holland Thomas MD; Location: [facility]; Service: Gynecology CURRENT MEDICATIONS: No current facility-administered [...] may take 3 caps at bedtime ??? ibuprofen (ADVIL,MOTRIN) 600 MG tablet Take 1 tablet (600 mg total) by mouth every 6 (six) hoursas needed for pain. ??? methylPREDNISolone (MEDROL, ANNA,) 4 mg tablet [...] incomplete relief. ALLERGIES: Allergies Allergen Reactions ??? [place] ??? Blood-Group Specific Substance Other (See Comments) [...] Spouse name: Jose ??? Number of children: Not on file ??? Years of education: come doreen ??? Highest education level: Not on file Occupational History ??? Occupation: unemployed Social Needs ??? Financial resource strain: Not on file ??? Food insecurity: Worry: Not on file Inability: Not on file ??? Transportation needs: Medical: Not on file Non-medical: Not on file Tobacco Use ??? Smoking status: Former Smoker Last attempt to quit: 03/14/2019 Years since quittin.4 ??? Smokeless tobacco: Never Used Substance and Sexual Activity ??? Alcohol use: No ??? Drug use: No ??? Sexual activity: Yes control/protection: I.U.D., None Lifestyle ??? Physical activity: Days per week: Not on file Minutes per session: Not on file ??? Stress: Not on file Relationships ??? Social connections: Talks on phone: Not on file Gets together: Not on file Attends druze service: Not on file Active member of club or organization: Not on file Attends meetings of clubs or organizations: Not on file Relationship status: Not on file ??? Intimate partner violence: Fear of current or ex partner: Not on file Emotionally abused: Not on file Physically abused: Not on file Forced sexual activity: Not on file Other Topics Concern ??? Not on file Social History Narrative ??? Not on file VITALS: Patient Vitals for the past 24 hrs: BP Temp Pulse Resp SpO2 Height Weight 08/14/19 1348 110/54 -- 72 -- 99 % -- -- 08/14/19 1201 123/73 98.2 ??F (36.8 ??C) 75 16 100 % 5' 7 (1.702 m) 164 lb 14.5 oz (74.8 kg) PHYSICAL EXAM Vitals: BP 110/54 Pulse 72 Temp 98.2 ??F (36.8 ??C) Resp 16 Ht 5' 7 (1.702 m) Wt 164 lb 14.5 oz (74.8 kg) LMP 01/14/2017 (Exact Date) SpO2 99% BMI 25.83 kg/m?? General: Sitting upright in dimmed room. Alert and interactive, comfortable appearing. HENT: Oropharynx without erythema or exudates. MMM. No intraoral lesions. No oropharyngeal swelling.Uvula midline. No visible abscess or abnormalities. Tolerating secretions without issue. Eyes: Pupils mid-sized and equally reactive. Extraocular movements intact. No nystagmus. Neck: Full AROM. No nuchal rigidity. Cardiovascular: Regular rate and rhythm . Chest/Pulmonary: Normal work of breathing. Lung sounds clear and equal throughout, no wheezes or crackles. No chest wall tenderness or deformities. Abdomen: Soft, nondistended. Nontender without guarding or rebound. Back/Spine: No CVA or midline tenderness. Extremities: Normal ROM of all major joints. No lower extremity edema. Skin: Warm and dry. Normal skin color. Neuro: Speech clear. script writer grossly intact. Moves all extremities appropriately. Strength and sensationgrossly intact to all extremities. Psych: Normal affect/mood, cooperative, memory appropriate. LAB: All pertinent labs reviewed and interpreted. Results for orders placed or performed during the hospital encounter of 08/14/19 Rapid strep screen Result Value Ref Range Rapid Strep A Antigen No Group A Strep detected, presumptive negative No Group A Strep detected, presumptive negative I, Lex Silva, am serving as a scribe to document services personally performed by Dr. Mariluz Cruz based on my observation and the provider's statements to me. IMariluz MD attest that Boo is acting in a scribe capacity, has observed my performance of the services and has documented them in accordance with my direction. Mariluz Cruz M.D. Emergency Medicine [facility] EMERGENCY DEPARTMENT [address] [address] Dept: [phone] Loc: [phone] Mariluz Cruz MD 08/14/19 1422 Amarilys Foley - 08/14/2019 12:51 PM CDT Patient seen at [facility] last week still having a sore throat and the migraine has not gotten betterwith her medications. ZELAYA is over the right eye has some photophobia not other vision or neuro changes. Patient is under some stress at home with daughter having a surgery soon. in the room. Zenaida Andersne - 08/14/2019 11:56 AM CDT pt seen at [facility] reports she had ocular migraine and it has been continuing. Tuesday pt reports strep and pcn shot. Tuesday pt reports tinging in her lips and swelling at the injection site and has been taking benadryl. Pt denies lip swelling but here due to injection site pain and swelling. Pt states her throat is still hurting. Ibuprofen last night. documented in this encounter Plan of Treatment Not on filedocumented as of this encounter Procedures Procedure Name Priority Date/Time Associated Comments Diagnosis RAPID STREP SCREEN STAT 08/14/2019 1:14 PM Res ults for this THROAT SWAB - CDT procedure are in HISTORICAL the results section. GROUP A STREP RNA, STAT 08/14/2019 1:14 PM Res ults for this DIRECT DETECTION CDT procedure a re in the results section. documented in this encounter Results Rapid Strep Screen Throat Swab - Historical (08/14/2019 1:14 PM CDT) [facility] Method Time Signature Group A No Group A No Group A 08/14/2019 [facility] Strep Strep Strep 1:31 PM CDT [facility] antigen detected, detected, DWINDS presumptive presumptive LABORATORY negative negative Specimen Anatomical Collection Method Collection Time Receive d Time (Source) Location / / Volume Laterality Specimen from Non-blood 08/14/2019 1:14 PM 08/14/20 19 1:19 throat Collection / CDT PM CDT (specimen) Unknown Mariluz Cruz MD LAB - MICRO GENERAL ORDERABL ES Performing Organization Address City/State/ZIP Code Phon e Number [facility] [place] [address] [place], [place] [address]venecia Mcgovern [address] [place] [address] LABORATORY Group A Strep RNA, Direct Detection (08/14/2019 1:14 PM CDT) [facility] Method Time Signature Group A strep No Group A No Group A 08/15/2019 [facility] by PCR Strep rRNA Strep rRNA 1:29 PM CDT [facility] Specimen Anatomical Collection Method Collection Time Receive d Time (Source) Location / / Volume Laterality Specimen from Non-blood 08/14/2019 1:14 PM 08/14/20 19 3:04 throat Collection / CDT PM CDT (specimen) Unknown Narrative [facility] - 08/15/2019 1:29 PM CDT Intended Use: The GEN-PROBE Group A Streptococcus dire ct test is a DNA probe assay which uses nucleic acid hybridization for the qualitative detection of Group A Streptococcal RNA to aid in the diagnosis of Group A Streptococcal pharyngitis from throat swabs. Methodology: The GEN-PROBE DNA probe assay uses a sin gle-stranded DNA probe with a chemiluminescent label, which is complementary to the ribosomal RNA of the target organism. ??The labeled DNA probe combines with th e ribosomal RNA to form a stable DNA:RNA hybrid. ??The labeled DNA:RNA hybrids are measured in GEN-PROBE luminometer. ??A positive result is a luminometer reading greater than or equal to the cut-off. ? ?A value below this cut-off is a negativ e result. Mariluz Cruz MD LAB - MICRO GENERAL ORDERABL ES Performing Organization Address City/State/ZIP Code [place] [address] [phone] [facility]ATORY [facility] [address] [place] [id number] [place] [address] documented in this encounter Visit Diagnoses Diagnosis Migraine without status migrainosus, not intractable, unspecified migraine type Pharyngitis due to other organism Sore throat Acute pharyngitis documented in this encounter Additional Health Concerns Assessment Noted Time PHQ-9 Depression Total Score: 19 09/04/2015 7:20 AM CD T documented as of this encounter Care Teams Automatic Drilling Machine Operator Relationship Specialty Start Date End Date No Ref-Primary, Physician PCP - General 07/27/15 04/14/20 documented as of this encounter
--- OUTSIDE RECORDS SUMMARY | 2022-08-31 22:23 | XMS_ITS | Encounter Summary ---
:1990 Author Organization [place] Address [address] [place] [address] Care Team Providers Name Role Phone Holland Thomas MD Primary Care Provider [phone] Encounter Details Date Type Department Care Team Description [facility] CONVERSION Provider, Histor ical Social History Tobacco Use Types Packs/Day Years [...] Priority Date/Time Associated Diagnosis Comme nts XR ANKLE RIGHT G/E Routine 05/21/2001 12:00 AM Re sults for this 3 VIEWS CDT procedure are i n the results section. documented in this encounter Results XR Ankle Right G/E 3 Views (05/21/2001 12:00 AM CDT) Anatomical Region Laterality Modality Ankle, Left Ankle Right Other Specimen (Source) Anatomical Location Collection Method / Collectio n Time Received Time / Laterality Volume Narrative 05/21/2001 12:00 AM CDT See Historical Hospital Medical Record f or documentation Procedure Note Provider, Historical - 04/14/2021Formatt ing of this note might be different from the original. See Historical Hospital Medical Record f or documentation Historical Provider IMG DIAGNOSTIC IMAGING ORDER SUBHA documented in this encounter Visit Diagnoses Not on filedocumented in this encounter Additional Health Concerns Assessment Noted Time PHQ-9 Depression Total Score: 19 09/04/2015 7:20 AM CD T documented as of this encounter Care Teams Custom Shoe Designer And Maker Relationship Specialty Start Date End Date Holland Thomas MD PCP - General restaurant and bar manager 04/15/20 [address] [address] documented as of this encounter
--- OUTSIDE RECORDS SUMMARY | 2022-08-31 22:23 | XMS_ITS | Encounter Summary ---
:1990 Author Organization [facility] Address [address] [place] [address]. [place] [address] Care Team Providers Name Role Phone Holland Thomas MD Primary Care Provider [phone] Reason for Visit Reason Comments Abdominal Pain Encounter Details Date Type Department Care Team Description 05/28/2020 - [facility] Luis Perez, Omid t lower quadrant 05/29/2020 [facility] abdominal pain [facility] [address] [place] [address] [phone] (Wo rk) [id number] [phone] Social History Tobacco Use Types Packs/Day Years [...] - - Weight 81.6 kg (180 lb) 05/28/2020 10:10 PM CDT Height 170.2 cm (5' 7) 05/28/2020 10:10 PM CDT Body Mass Index 28.19 05/28/2020 10:10 PM [...] documented as of this encounter ED Notes Luis Perez MD - 05/28/2020 11:52 PM CDT EMERGENCY DEPARTMENT ENCOUNTER NAME: Keyla Porter AGE: 29 y.o. female DATE OF : 1990 EVALUATION DATE & TIME: 05/28/2020 11:39 PM PCP: Holland Thomas MD ED PROVIDER: Luis Perez M.D. Chief Complaint Patient presents with ??? Abdominal Pain FINAL IMPRESSION: 1. Right lower quadrant abdominal pain ED COURSE & MEDICAL DECISION MAKING: Pertinent Labs & Imaging studies reviewed. (See chart for details) PPE: N95 and gloves 11:45 PM: I met with the patient for the initial interview and physical examination. Discussed plan for treatment and workup in the ED. 29 y.o. female presents to the Emergency Department for evaluation of abdominal pain. Patient has lower abdominal pain. Unclear etiology. Did do a CT scan looking for kidney stone versus appendicitis. No signs of either. No signs of obstruction or colitis. Ovaries are normal size. I do not suspect torsion. Does have some gallbladder wall thickening. Did get an ultrasound this does show a contracted gallbladder but no signs of cholecystitis. Labs show some mildly low potassium and hemoglobin. No white count. Urinalysis is normal. No signs of UTI or pyelonephritis. Unclear etiology of her symptoms. Does have a history of endometriosis which could be the cause. Patient feeling better after IV Toradol and IV Dilaudid. Will discharge her home with Zofran and oxycodone. She will follow-up with her doctor. Return for worsening symptoms. At the conclusion of the encounter I discussed the results of all of the tests and the disposition. The questions were answered. The patient or family acknowledged understanding and was agreeable with the care plan. MEDICATIONS GIVEN IN THE EMERGENCY: Medications sodium chloride flush 10 mL (NS) (10 mL Intravenous Not Given 05/29/20 0100) naloxone injection 0.2-0.4 mg (NARCAN) (has no administration in time range) Or naloxone injection 0.2-0.4 mg (NARCAN) (has no administration in time range) sodium chloride 0.9% 1,000 mL (0 mL Intravenous Stopped 05/29/20 0119) ketorolac injection 30 mg (TORADOL) (30 mg Intravenous Given 05/29/20 0015) ondansetron injection 4 mg (ZOFRAN) (4 mg Intravenous Given 05/29/20 0015) HYDROmorphone injection 0.5 mg (DILAUDID) (0.5 mg Intravenous Given 05/29/20 0153) ondansetron injection 4 mg (ZOFRAN) (4 mg Intravenous Given 05/29/20 0245) NEW PRESCRIPTIONS STARTED AT TODAY'S ER VISIT Discharge Medication List as of 05/29/2020 2:40 AM START taking these medications Details ondansetron (ZOFRAN ODT) 4 MG disintegrating tablet Take 1 tablet (4 mg total) by mouth every 8 (eight) hours as needed., Starting Tue05/29/2020, Print CONTINUE these medications which have CHANGED Details oxyCODONE (ROXICODONE) 5 MG immediate release tablet Take 1 tablet (5 mg total) by mouth every 6 (six) hours as needed for pain., Starting Tue05/29/2020, Print CONTINUE these medications which have NOT CHANGED Details cyclobenzaprine (FLEXERIL) 10 MG tablet Take 1 tablet (10 mg total) by mouth 2 (two) times a day as needed for muscle spasms., Starting Tue04/15/2020, Print ferrous sulfate 325 (65 FE) MG tablet Take 1 tablet by mouth daily with breakfast., Historical Med gabapentin (NEURONTIN) 300 MG capsule Take 1 capsule (300 mg total) by mouth 3 (three) times a day.,Starting Tue04/15/2020, Print ibuprofen (ADVIL,MOTRIN) 600 MG tablet Take 1 tablet (600 mg total) by mouth every 6 (six) hours as needed for pain., Starting Tue08/10/2019, Normal metoclopramide (REGLAN) 10 MG tablet Take 1 tablet (10 mg total) by mouth every 6 (six) hours as needed for nausea., Starting Marizol 08/09/2019, Print SUMAtriptan (IMITREX) 50 MG tablet Take 1 tablet (50 mg total) by mouth once as needed for migraine.May repeat after 2 hours X 1 if incomplete relief., Starting Marizol 12/27/2019, Print HPI Patient information was obtained from: Patient Use of Ribbon Blockmaker: N/A Keyla Porter is a 29 y.o. female with a pertinent history of abnormal pap smear, endometriosis,PID, kidney stone, UTI, IUD removal, endometrial ablation, , exploratory laparotomy, and hysterectomy who presents to this ED via walk-in for evaluation of abdominal pain. Around 0500 this morning, she began to develop mid-lower abdominal pain. Throughout the day, her pain gradually worsened with diarrhea, nausea, vomiting, a fever of 100.3F and pain radiation to her back. Patient also complains of urinary urgency with decreased output after being able to urinate fine until about 2100. She denies any cough, shortness of breath, difficulty urinating, dysuria, illness exposure, travel, or any associated symptoms. Patient notes that this feels different than her normal endometriosis pain which has not had any significant episodes in the past few years. Patient takes iron daily. Patient has a known allergy to morphine. She drinks occasionally and recently quit smoking. Patient has not been working recently. REVIEW OF SYSTEMS Review of Systems Constitutional: Positive for fever. Respiratory: Negative for cough and shortness of breath. Gastrointestinal: Positive for abdominal pain (lower mid, gradually worsening, radiates to back), diarrhea, nausea and vomiting. Genitourinary: Positive for decreased urine volume and urgency. Negative for difficulty urinating and dysuria. Musculoskeletal: Positive for back pain. All other systems reviewed and are negative. [...] 2011 Was doing the period alone ??? Urinary tract infection ??? Varicella twice as a child PAST SURGICAL HISTORY: Past Surgical History: Procedure Laterality Date ??? SECTION N/A 11/17/2016 Procedure: SECTION; Surgeon: Holland Thomas MD; Location: [facility] L+[facility] OR; Service: ??? COLPOSCOPY 2011 ??? ENDOMETRIAL ABLATION during one of the laparotomies ??? EXPLORATORY LAPAROTOMY 3x - last in 10/2015, 2010, Gyne surgeon in 2014 states no contraindication to vaginal per patient ??? IUD removal 11/13/2015 laproscopic procedure ??? LAPAROSCOPIC HYSTERECTOMY N/A 12/21/2017 Procedure: ROBOTC TOTAL LAPAROSCOPIC HYSTERECTOMY, BILATERAL SALPINGECTOMY ; Surgeon: Holland Thomas MD; Location: [facility] OR; Service: ??? UT LAP,FULGURATE/EXCISE LESIONS Right 03/25/2017 Procedure: LAPAROSCOPY, OVARIAN CYSTECTOMY; Surgeon: Holland Thomas MD; Location: [facility] OR; Service: Gynecology CURRENT MEDICATIONS: No current [...] mouth 3 (three) times a day. ??? ibuprofen (ADVIL,MOTRIN) 600 MG tablet Take 1 tablet (600 mg total) by mouth every 6 (six) hoursas needed for pain. ??? metoclopramide (REGLAN) 10 MG tablet Take 1 tablet (10 mg total) by mouth every 6 (six) hours asneeded for nausea. ??? SUMAtriptan (IMITREX) 50 MG tablet Take 1 tablet (50 mg total) by mouth once as needed for migraine. May repeat after 2 hours X 1 if incomplete relief. ??? [DISCONTINUED] oxyCODONE (ROXICODONE) 5 MG immediate release tablet Take 1 tablet (5 mg total) by mouth every 6 (six) hours as needed. ALLERGIES: Allergies Allergen Reactions ??? Blood-Group Specific [...] Last attempt to quit: 03/14/2019 Years since quittin.2 ??? Smokeless tobacco: Never Used Substance and Sexual Activity ??? Alcohol use: No ??? Drug use: No ??? Sexual activity: Yes control/protection: I.U.D., None Lifestyle ??? Physical activity Days per week: None Minutes per session: None ??? Stress: None Relationships ??? Social connections Talks on phone: None Gets together: None Attends mandaen service: None Active member of club or [...] Temp src Pulse Resp SpO2 Height Weight 05/29/20 0230 116/61 -- -- 84 18 100 % -- -- 05/29/20 0215 114/56 -- -- (!) 59 18 99 % -- -- 05/29/20 0131 111/72 -- -- (!) 45 18 100 % -- -- 05/29/20 0100 100/60 -- -- (!) 55 16 99 % -- -- 05/29/20 0031 106/63 -- -- (!) 43 18 100 % -- -- 05/29/20 0007 127/59 -- -- (!) 57 16 98 % -- -- 05/28/20 2210 (!) 136/94 98 ??F (36.7 ??C) Temporal 75 16 99 % 5' 7 (1.702 m) 180 lb (81.6 kg) PHYSICAL EXAM Constitutional: Well developed, well nourished, no acute distress EYES: Conjunctivae clear HENT: Atraumatic, normocephalic Bilateral external ears normal, nose normal, oropharynx moist. Neck-supple Respiratory: No respiratory distress, normal breath sounds, no rales, no wheezing, no cough, no stridor Cardiovascular: Normal rate, normal rhythm, no murmurs, capillary refill normal. No chest wall tenderness GI: Soft, nondistended, Tender in RLQ, no palpable masses, no rebound, no guarding : No CVA tenderness. Musculoskeletal: No edema. No cyanosis. Range of motion major extremities intact. No tenderness to palpation or major deformities noted. Integument: Warm, Dry, No erythema, No rash. Neurologic: Alert & oriented, no focal deficits noted, ambulatory Psych: Affect normal, Mood normal. LAB: All pertinent labs reviewed and interpreted. Results for orders placed or performed during the hospital encounter of 05/28/20 Comprehensive Metabolic Panel Result Value Ref Range Sodium 138 136 - 145 mmol/L Potassium 3.4 (L) 3.5 - 5.0 mmol/L Chloride 109 (H) 98 - 107 mmol/L CO2 24 22 - 31 mmol/L Anion Gap, Calculation 5 5 - 18 mmol/L Glucose 92 70 - 125 mg/dL BUN 7 (L) 8 - 22 mg/dL Creatinine 0.76 0.60 - 1.10 mg/dL GFR MDRD Af Amer >60 >60 mL/min/1.73m2 GFR MDRD Non Af Amer >60 >60 mL/min/1.73m2 Bilirubin, Total 0.2 0.0 - 1.0 mg/dL Calcium 9.0 8.5 - 10.5 mg/dL Protein, Total 7.6 6.0 - 8.0 g/dL Albumin 3.8 3.5 - 5.0 g/dL Alkaline Phosphatase 43 (L) 45 - 120 U/L AST 20 0 - 40 U/L ALT 23 0 - 45 U/L Lipase Result Value Ref Range Lipase 12 0 - 52 U/L Urinalysis-UC if Indicated Result Value Ref Range Color, UA Straw Colorless, Yellow, Straw, Light Yellow Clarity, UA Clear Clear Glucose, UA Negative Negative Bilirubin, UA Negative Negative Ketones, UA Negative Negative Specific [place], UA 1.005 1.001 - 1.030 Blood, UA Negative Negative pH, UA 8.0 4.5 - 8.0 Protein, UA Negative Negative mg/dL Urobilinogen, UA <2.0 E.U./dL <2.0 E.U./dL, 2.0 E.U./dL Nitrite, UA Negative Negative Leukocytes, UA Negative Negative HM1 (CBC with Diff) Result Value Ref Range WBC 4.4 4.0 - 11.0 thou/uL RBC 3.79 (L) 3.80 - 5.40 mill/uL Hemoglobin 11.9 (L) 12.0 - 16.0 g/dL Hematocrit 35.1 35.0 - 47.0 % MCV 93 80 - 100 fL MCH 31.4 27.0 - 34.0 pg MCHC 33.9 32.0 - 36.0 g/dL RDW 12.1 11.0 - 14.5 % Platelets 193 140 - 440 thou/uL MPV 10.5 8.5 - 12.5 fL Neutrophils % 44 (L) 50 - 70 % Lymphocytes % 46 (H) 20 - 40 % Monocytes % 8 2 - 10 % Eosinophils % 2 0 - 6 % Basophils % 0 0 - 2 % Neutrophils Absolute 1.9 (L) 2.0 - 7.7 thou/uL Lymphocytes Absolute 2.0 0.8 - 4.4 thou/uL Monocytes Absolute 0.4 0.0 - 0.9 thou/uL Eosinophils Absolute 0.1 0.0 - 0.4 thou/uL Basophils Absolute 0.0 0.0 - 0.2 thou/uL RADIOLOGY: Reviewed all pertinent imaging. Please see official radiology report. Ct Abdomen Pelvis Without Oral Without Iv Contrast Result Date: 05/29/2020 EXAM: CT ABDOMEN PELVIS WO ORAL WO IV CONTRAST LOCATION: [facility] DATE/TIME: 05/29/2020 1:22AM INDICATION: Abdominal pain, acute, nonlocalized right sided abdomen. COMPARISON: 09/08/2019. TECHNIQUE: CT scan of the abdomen and pelvis was performed without oral or IV contrast. Multiplanar reformats were obtained. Dose reduction techniques were used. CONTRAST: None. FINDINGS: LOWER CHEST: Visualization of the myocardium of the left ventricle and noncontrast CT consistent with anemia. Lung bases clear. HEPATOBILIARY: Gallbladder is completely collapsed. There is mild gallbladder wall thickening but no calcified gallstones. This is a nonspecific finding. Liver unremarkable. PANCREAS: Normal. SPLEEN: Normal. ADRENAL GLANDS: Normal. KIDNEY/BLADDER: No significant mass, stone, or hydronephrosis.BOWEL: No obstruction or inflammatory change. Normal appendix. LYMPH NODES: Normal. VASCULATURE: Unremarkable. PELVIC ORGANS: Prior hysterectomy. MUSCULOSKELETAL: Normal. 1. Mild gallbladder wall thickening, nonspecific finding. No calcified gallstones. Otherwise no acute abnormality in the abdomen or pelvis. Us Abdomen Limited Result Date: 05/29/2020 EXAM: US ABDOMEN LIMITED LOCATION: [facility] DATE/TIME: 05/29/2020 2:05 AM INDICATION: Right-sided abdominal pain. COMPARISON: CT 05/29/2020. TECHNIQUE: Limited abdominal ultrasound. FINDINGS: GALLBLADDER: The gallbladder is partially contracted. No gallstones. No sonographic Cruz sign. BILE DUCTS: No biliary dilatation. The common duct measures 1 mm. LIVER: Normal parenchyma with smooth contour. No focal mass. RIGHT KIDNEY: No hydronephrosis. PANCREAS: The visualized portions are normal. No ascites. 1. The gallbladder is contracted. No gallstones or biliary dilatation. I, Prasanth Casper, am serving as a scribe to document services personally performed by Dr. Garcia based on my observation and the provider's statements to me. I, Luis Perez MD attest thatPrasanth Casper is acting in a scribe capacity, has observed my performance of the services and has d ocumented them in accordance with my direction. Luis Perez M.D. Emergency Medicine [facility] EMERGENCY DEPARTMENT [address] [facility] [address] Dept: [phone] Loc: [phone] Luis Perez MD 05/29/20 0258 Brooklyn Gamez RN - 05/28/2020 10:07 PM CDT Patient is here with mid abdomen pain, emesis, nausea, decreased appetite, bloating, mucous diarrhea, that started this morning. Today at 2 pm she developed right lower back pain. documented in this encounter Plan of Treatment Not on filedocumented as of this encounter Procedures Procedure Name Priority Date/Time Associated Comments Diagnosis US ABDOMEN LIMITED Routine 05/29/2020 2:05 AM Res ults for this CDT procedure are i n the results section. CT ABDOMEN PELVIS W/O Routine 05/29/2020 1:22 AM Results for this CONTRAST CDT procedure are i n the results section. ROUTINE UA WITH STAT 05/29/2020 12:12 Results for this MICROSCOPIC REFLEX TO AM CDT proced ure are in CULTURE the results section. CBC WITH PLATELETS AND STAT 05/29/2020 12:11 R esults for this DIFFERENTIAL AM CDT procedure are i n the results section. LIPASE STAT 05/29/2020 12:11 Results for this AM CDT procedure are i n the results section. COMPREHENSIVE STAT 05/29/2020 12:11 Results fo r this METABOLIC PANEL AM CDT procedure ar e in the results section. documented in this encounter Results US Abdomen Limited (05/29/2020 2:05 AM CDT) Anatomical Region Laterality Modality Abdomen/Pelvis Other Specimen (Source) Anatomical Location Collection Method / Collectio n Time Received Time / Laterality Volume Impressions 05/29/2020 2:12 AM CDT 1. ??The gallbladder is contracted. No g allstones or biliary dilatation. Narrative 05/29/2020 2:12 AM CDT EXAM: US ABDOMEN LIMITED LOCATION: [facility] DATE/TIME: 05/29/2020 2:05 AM INDICATION: Right-sided abdominal pain. COMPARISON: CT 05/29/2020. TECHNIQUE: Limited abdominal ultrasound. FINDINGS: GALLBLADDER: The gallbladder is partiall y contracted. No gallstones. No sonographic Cruz sign. BILE DUCTS: No biliary dilatation. The c ommon duct measures 1 mm. LIVER: Normal parenchyma with smooth con tour. No focal mass. RIGHT KIDNEY: No hydronephrosis. PANCREAS: The visualized portions are no rmal. No ascites. Procedure Note Andrew Augustine MD - 04/30/2021Form atting of this note might be different from the original. EXAM: US ABDOMEN LIMITED LOCATION: [facility] DATE/TIME: 05/29/2020 2:05 AM INDICATION: Right-sided abdominal pain. COMPARISON: CT 05/29/2020. TECHNIQUE: Limited abdominal ultrasound. FINDINGS: GALLBLADDER: The gallbladder is partiall y contracted. No gallstones. No sonographic Cruz sign. BILE DUCTS: No biliary dilatation. The c ommon duct measures 1 mm. LIVER: Normal parenchyma with smooth con tour. No focal mass. RIGHT KIDNEY: No hydronephrosis. PANCREAS: The visualized portions are no rmal. No ascites. IMPRESSION: 1. The gallbladder is contracted. No gal lstones or biliary dilatation. Luis Perez MD IMG US ORDERABLES CT Abdomen Pelvis w/o Contrast (05/29/2020 1:22 AM CDT) Anatomical Region Laterality Modality Abdomen/Pelvis, SUBRAD CT BODY, UMP CT ABDOMEN PELVIS, Computed Tomography RAD CT Specimen (Source) Anatomical Location Collection Method / Collectio n Time Received Time / Laterality Volume Impressions 05/29/2020 1:42 AM CDT 1. ??Mild gallbladder wall thickening, n onspecific finding. No calcified gallstones. Otherwise no acute abnormality in the ab domen or pelvis. Narrative 05/29/2020 1:42 AM CDT EXAM: CT ABDOMEN PELVIS WO ORAL WO IV CONTRAST LOCATION: [facility] DATE/TIME: 05/29/2020 1:22 AM INDICATION: Abdominal pain, acute, nonlo calized right sided abdomen. COMPARISON: 09/08/2019. TECHNIQUE: CT scan of the abdomen and pe lvis was performed without oral or IV contrast. Multiplanar reformats were obtained. Dose reduction techniques were used. CONTRAST: None. FINDINGS: LOWER CHEST: Visualization of the myocar dium of the left ventricle and noncontrast CT consistent with anemia. Lung bases clear. HEPATOBILIARY: Gallbladder is completely collapsed. There is mild gallbladder wall thickening but no calcified gallstones. This is a nonspecific finding. Liver unremarkable. PANCREAS: Normal. SPLEEN: Normal. ADRENAL GLANDS: Normal. KIDNEY/BLADDER: No significant mass, sto ne, or hydronephrosis. BOWEL: No obstruction or inflammatory ch jasper. Normal appendix. LYMPH NODES: Normal. VASCULATURE: Unremarkable. PELVIC ORGANS: Prior hysterectomy. MUSCULOSKELETAL: Normal. Procedure Note Sha Carson MD - 04/30/2021Formatt ing of this note might be different from the original. EXAM: CT ABDOMEN PELVIS WO ORAL WO IV CO NTRAST LOCATION: [facility] DATE/TIME: 05/29/2020 1:22 AM INDICATION: Abdominal pain, acute, nonlo calized right sided abdomen. COMPARISON: 09/08/2019. TECHNIQUE: CT scan of the abdomen and pe lvis was performed without oral or IV contrast. Multiplanar reformats were obtained. Dose reduction techniques were used. CONTRAST: None. FINDINGS: LOWER CHEST: Visualization of the myocar dium of the left ventricle and noncontrast CT consistent with anemia. Lung bases clear. HEPATOBILIARY: Gallbladder is completely collapsed. There is mild gallbladder wall thickening but no calcified gallstones. This is a nonspecific finding. Liver unremarkable. PANCREAS: Normal. SPLEEN: Normal. ADRENAL GLANDS: Normal. KIDNEY/BLADDER: No significant mass, sto ne, or hydronephrosis. BOWEL: No obstruction or inflammatory ch jasper. Normal appendix. LYMPH NODES: Normal. VASCULATURE: Unremarkable. PELVIC ORGANS: Prior hysterectomy. MUSCULOSKELETAL: Normal. IMPRESSION: 1. Mild gallbladder wall thickening, non specific finding. No calcified gallstones. Otherwise no acute abnormality in the abdomen or pelvis. Luis Perez MD IMG CT ORDERABLES UA with Microscopic reflex to Culture (05/29/2020 12:12 AM CDT) [facility] Method Time Signature Color Urine Straw Colorless, 05/29/2020 [facility] Yellow, 12:31 AM [facility] [place] Yellow Appearance Urine Clear Clear 05/29/2020 [facility] 12:31 AM [place] [facility] Glucose Urine Negative Negative 05/29/2020 [facility] 12:31 AM [facility] Bilirubin Urine Negative Negative 05/29/2020 [facility] 12:31 AM [place] [facility] Ketones Urine Negative Negative 05/29/2020 [facility] 12:[facility] Specific [place] 1.005 1.001 - 05/29/2020 [facility] Urine 1.030 12:31 AM [facility] Blood Urine Negative Negative 05/29/2020 [facility] 12:31 AM [facility] pH Urine 8.0 4.5 - 8.0 05/29/2020 [facility] 12:31 AM [place] [facility] Protein Albumin Negative Negative 05/29/2020 [facility] Urine mg/dL 12:31 AM [facility] Urobilinogen <2.0 <2.0 05/29/2020 [facility] Urine E.U./dL E.U./dL, 12:31 AM [facility] [place] 2.0 E.U./dL [facility] Nitrite Urine Negative Negative 05/29/2020 [facility] 12:31 AM [place] [facility] Leukocyte Negative Negative 05/29/2020 [facility] Esterase Urine 12:31 AM [facility] Specimen Anatomical Collection Method Collection Time Receive d Time (Source) Location / / Volume Laterality Urine specimen Non-blood 05/29/2020 12:12 0 (specimen) Collection / AM CDT 12:21 AM CDT Unknown Narrative [facility] - 05/29/2020 12:31 AM CDT Microscopic not indicated UC not indicated Luis Perez MD LAB - URINE ORDERABLES Performing Organization Address City/State/ZIP Code Phon e Number [facility] [place] [address] [facility] [address] [facility] [address] [place] [address] [place] [address] [facility] [place] [address], [facility] (ABNORMAL) CBC WITH PLATELETS AND DIFFERENTIAL (05/29/2020 12:11 AM CDT) [facility] Method Time Signature WBC 4.4 4.0 - 05/29/2020 [facility] 11.0 12:31 AM CDT [facility] thou/uL [facility] RBC Count 3.79 (L) 3.80 - 05/29/2020 [facility] 5.40 12:31 AM CDT [place] mill/uL [facility] Hemoglobin 11.9 (L) 12.0 - 05/29/2020 [facility] 16.0 g/dL 12:31 AM CDT [facility] Hematocrit 35.1 35.0 - 05/29/2020 [facility] 47.0 % 12:31 AM CDT [place] [facility] MCV 93 80 - 100 05/29/2020 [facility] fL 12:31 AM CDT [facility] [place] MCH 31.4 27.0 - 05/29/2020 [facility] 34.0 pg 12:31 AM CDT [place] [facility] MCHC 33.9 32.0 - 05/29/2020 [facility] 36.0 g/dL 12:31 AM CDT [facility] [place] RDW 12.1 11.0 - 05/29/2020 [facility] 14.5 % 12:31 AM CDT [facility] Platelet Count 193 140 - 440 05/29/2020 [facility] thou/uL 12:31 AM CDT [place] [place] [facility] Mean Platelet 10.5 8.5 - 05/29/2020 [facility] Volume 12.5 fL 12:31 AM CDT [facility] % Neutrophils 44 (L) 50 - 70 % 05/29/2020 [facility] 12:31 AM CDT [facility] % Lymphocytes 46 (H) 20 - 40 % 05/29/2020 [facility] 12:31 AM CDT [facility] % Monocytes 8 2 - 10 % 05/29/2020 [facility] 12:31 AM CDT [facility] % Eosinophils 2 0 - 6 % 05/29/2020 [facility] 12:31 AM CDT [facility] % Basophils 0 0 - 2 % 05/29/2020 [facility] 12:31 AM CDT [facility] Absolute 1.9 (L) 2.0 - 7.7 05/29/2020 [facility] Neutrophils thou/uL 12:31 AM CDT [facility] Absolute 2.0 0.8 - 4.4 05/29/2020 [facility] Lymphocytes thou/uL 12:31 AM CDT [facility] Absolute 0.4 0.0 - 0.9 05/29/2020 [facility] Monocytes thou/uL 12:31 AM CDT [facility] Eosinophils 0.1 0.0 - 0.4 05/29/2020 [facility]ALTH Absolute thou/uL 12:31 AM CDT [facility] Absolute 0.0 0.0 - 0.2 05/29/2020 [facility] Basophils thou/uL 12:31 AM [facility] Specimen Anatomical Collection Method Collection Time Receive d Time (Source) Location / / Volume Laterality Blood specimen VAD(CVC, PICC) / 05/29/2020 12:11 05/29 (specimen) Unknown AM CDT 12:20 AM CDT Luis Perez MD LAB - BLOOD ORDERABLES Performing Organization Address City/State/ZIP Code Phon e Number [facility] [place] [address] Lab Sylvia Felder [facility] [place] [address] LABORATORY Lipase (05/29/2020 12:11 AM CDT) athologist Signature Lipase 12 0 - 52 U/L 05/29/2020 [facility] 12:51 AM [facility] Specimen Anatomical Collection Method Collection Time Receive d Time (Source) Location / / Volume Laterality Blood specimen VAD(CVC, PICC) / 05/29/2020 12:11 05/29 (specimen) Unknown AM CDT 12:20 AM CDT Luis Perez MD LAB - BLOOD ORDERABLES Performing Organization Address City/State/ZIP Code Phon e Number [facility] [place] [address] [place], [place] [address]char [address] [place], [place] [address] LABORATORY (ABNORMAL) Comprehensive metabolic panel (05/29/2020 12:11 AM CDT) [facility] Method Time Signature Sodium 138 136 - 145 05/29/2020 [facility] mmol/L 12:49 AM CDT [facility] Potassium 3.4 (L) 3.5 - 5.0 05/29/2020 [facility] mmol/L 12:49 AM T [facility] Chloride 109 (H) 98 - 107 05/29/2020 [facility] mmol/L 12:49 AM T [facility] Carbon Dioxide 24 22 - 31 05/29/2020 [facility] (CO2) mmol/L 12:49 AM T [facility] Anion Gap 5 5 - 18 05/29/2020 [facility] mmol/L 12:49 AM [facility] Glucose 92 70 - 125 05/29/2020 [facility] mg/dL 12:49 AM T [facility] Urea Nitrogen 7 (L) 8 - 22 05/29/2020 [facility] mg/dL 12:49 AM T [facility] Creatinine 0.76 0.60 - 05/29/2020 [facility] 1.10 mg/dL 12:49 AM CDT [facility] GFR Estimate If >60 >60 05/29/2020 [facility] Black mL/min/1.7 12:49 AM T [address] [facility] GFR Estimate >60 >60 05/29/2020 [facility] mL/min/1.7 12:49 AM T [place] [address] [facility] Bilirubin Total 0.2 0.0 - 1.0 05/29/2020 [facility] mg/dL 12:49 AM CDT [facility] Calcium 9.0 8.5 - 10.5 05/29/2020 [facility] mg/dL 12:49 AM CDT [facility] Protein Total 7.6 6.0 - 8.0 05/29/2020 [facility] g/dL 12:49 AM CDT [facility] Albumin 3.8 3.5 - 5.0 05/29/2020 [facility] g/dL 12:49 AM CDT [facility] Alkaline 43 (L) 45 - 120 05/29/2020 [facility] Phosphatase U/L 12:49 AM CDT [facility] AST 20 0 - 40 U/L 05/29/2020 [facility] 12:49 AM CDT [facility] ALT 23 0 - 45 U/L 05/29/2020 [facility] 12:49 AM CDT [facility] Specimen Anatomical Collection Method Collection Time Receive d Time (Source) Location / / Volume Laterality Blood specimen VAD(CVC, PICC) / 05/29/2020 12:11 05/29 (specimen) Unknown AM CDT 12:20 AM CDT Narrative [facility] - 05/29/2020 12:49 AM CDT Fasting Glucose reference range is 70-99 mg/dL per [place] [employer] (ADA) [employer]. Luis Perez MD LAB - BLOOD ORDERABLES Performing Organization Address City/State/ZIP Code Phon e Number [facility] [place] [address] [place] [facility] [place] [address] [address] [facility] [address] [place] [address] [place]IE [place] [id number] documented in this encounter Visit Diagnoses Diagnosis Right lower quadrant abdominal pain Abdominal pain, right lower quadrant documented in this encounter Additional Health Concerns Assessment Noted Time PHQ-9 Depression Total Score: 19 09/04/2015 7:20 AM CD T documented as of this encounter Care Teams Circle Beveler Relationship Specialty Start Date End Date Holland Thomas MD PCP - General agitator operator 04/15/[address] [place] [address] documented as of this encounter
--- OUTSIDE RECORDS SUMMARY | 2022-08-31 22:23 | XMS_ITS | Encounter Summary ---
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 Her specialist is not currently seeing patients. Tried to lift something yesterday and immediately felt shooting pains in her back and into left leg.She says she can barely move without pain, cannot stand up straight. She tried last night using ice,heat, rest, ibuprofen with no relief. Did not sleep well last night. Reports herniated L2-L3 in the past, wondering if happened again or completely displaced. In left hip, she reports tingling from hipjoint to knee. She says her pelvic bones feel numb and numbness on the left inner groin. I advised Keyla that given numbness, she should be seen in ER today. She agrees to this plan. Gladis Sharp RN [facility] Nurse Advisor Reason for Disposition ??? Numbness (loss of sensation) in groin or rectal area Protocols used: BACK PAIN-A-[place] COVID 19 Nurse Triage Plan/Patient Instructions Please be aware that novel coronavirus (COVID-19) may be circulating in the community. If you develop symptoms such as fever, cough, or SOB or if you have concerns about the presence of another infection including coronavirus (COVID- 19), please contact your health care provider or visit [email or web address]. Disposition/Instructions Patient to go to ED and follow protocol based instructions. Follow System Ambulatory Workflow for COVID 19. Bring Your Own Device: Please also bring your smart device(s) (smart phones, tablets, laptops) and their charging cables for your personal use and to communicate with your care team during your visit. Thank you for limiting contact with others, wearing a simple mask to cover your cough, practice goodhand hygiene habits and accessing our virtual services where possible to limit the spread of this virus. For more information about COVID19 and options for caring for yourself at home, please visit the CDCwebsite at https://www.cdc.gov/coronavirus/2019-ncov/about/hxwqw-cqyf-upck.html For more options for care at [facility], please visit our website at [email or web address] For more information, please use the [facility] COVID-19 Website: https://www.health.[facility]/diseases/coronavirus/index.html [facility] ([facility]) COVID-19 Hotlines (Interpreters available): ?? Health questions: or and Hours: 7 a.m. to 7 p.m. ?? Schools and child psychiatrist questions: or and Hours 7 a.m. to 7 p.m. documented in this encounter Plan of Treatment Not on filedocumented as of this encounter Visit Diagnoses Not on filedocumented in this encounter Additional Health Concerns Assessment Noted Time PHQ-9 Depression Total Score: 19 09/04/2015 7:20 AM CD T documented as of this encounter Care Teams Director Labor Standards Relationship Specialty Start Date End Date Holland Thomas MD PCP - General golf sales manager 04/15/20 [address] [address] documented as of this encounter
--- OUTSIDE RECORDS SUMMARY | 2022-08-31 22:23 | XMS_ITS | Encounter Summary ---
:1990 Author Organization [place] Address [facility] [place] [address] Care Team Providers Name Role Phone Holland Thomas MD Primary Care Provider [phone] Reason for Visit Reason Comments Back Pain Encounter Details Date Type Department Care Team Description 04/15/2020 [facility] Andrea Dubois MD Sciatica of left side; [facility] [address] Lumbosacral radiculopathy at [address] [facility] [place], [place] [id number] [place] [address] [phone] (Work) [phone] Social History Tobacco Use Types Packs/Day Years [...] - Inhaled Oxygen Concentration - - Weight 82.6 kg (182 lb) 04/15/2020 2:49 PM CDT Height 172.7 cm (5' 8) 04/15/2020 2:49 PM CDT Body Mass Index 27.67 04/15/2020 2:49 PM CDT documented in this encounter Medications [...] as of this encounter ED Notes Lluvia Juarez RN - 04/15/2020 6:13 PM CDT Patient breathing, regular, no respiratory distress. Patient verbalized discharge instructions. Patient ambulated out of department by self. Jessica De La Garza RN - 04/15/2020 3:58 PM CDT PT to MRI by Aye Olivarez. Checklist faxed. Andrea Dubois MD - 04/15/2020 2:54 PM CDT EMERGENCY DEPARTMENT ENCOUNTER NAME: Keyla Porter AGE: 29 y.o. female DATE OF : 1990 EVALUATION DATE & TIME: 04/15/2020 2:51 PM PCP: Holland Thomas MD Chief Complaint Patient presents with ??? Back Pain FINAL IMPRESSION: 1. Sciatica of left side 2. Lumbosacral radiculopathy at L4 ED COURSE & MEDICAL DECISION MAKING: Pertinent Labs & Imaging studies reviewed. (See chart for details) 29 y.o. female presents to the Emergency Department for evaluation of backpain. ED Course as of Apr 15 1916 Tue April 15, 20201912 Patient presents with sciatic-like left leg pain as well as some numbness to her left groin [SP] 1912 No weakness with groin numbness decision made to obtain MRI. Based on exam cauda equina unlikely. History and exam not suggestive of fracture. MRI does show L4 nerve entrapment [SP] 191 Spoke with [facility] regarding the MRI and exam and was reassured that L4 radiculopathy can cause some numbness in the groin [SP] 1914 Patient be discharged home with gabapentin, Flexeril, oxycodone, Tylenol, ibuprofen. She had 10g of dexamethasone yesterday. Patient will follow-up with her spine team tomorrow [SP] ED Course User Index [SP] Andrea Dubois MD 3:06 PM I met with the patient to gather history and perform an initial exam. We discussed plans fortreatment. When evaluating the patient I was wearing gloves, goggles, N95 mask, and surgical cap. 5:10 PM I rechecked on the patient and updated her. 5:13 PM I paged for [facility]. 5:37 PM [facility] is not open after hours. The ED coordinator called over to the [facility] ED to confirm and it is in fact the case. They use [facility] or [facility] for after hours and the weekend. 5:38 PM Paged for [facility]. 5:51 PM I spoke to Dr. Calix at [facility]. Discussed the patient's imaging results. They say the patient can be discharged home with close follow up with her spine team. 6:00 PM We discussed plans for discharge including supportive cares, symptomatic treatment, outpatient follow up, and reasons to return to the emergency department. At the conclusion of the encounter I discussed the results of all of the tests and the disposition. The questions were answered. The patient or family acknowledged understanding and was agreeable with the care plan. MEDICATIONS GIVEN IN THE EMERGENCY: Medications gabapentin capsule 300 mg (NEURONTIN) (300 mg Oral Given 04/15/20 5184) naloxone injection 0.2-0.4 mg (NARCAN) (has no administration in time range) Or naloxone injection 0.2-0.4 mg (NARCAN) (has no administration in time range) oxyCODONE-acetaminophen 5-325 mg 1 tablet (PERCOCET/ENDOCET) (1 tablet Oral Given 04/15/20 1545) ibuprofen tablet 400 mg (ADVIL,MOTRIN) (400 mg Oral Given 04/15/20 154) NEW PRESCRIPTIONS STARTED AT TODAY'S ER VISIT Discharge Medication List as of 04/15/2020 6:01 PM START taking these medications Details cyclobenzaprine (FLEXERIL) 10 MG tablet Take 1 tablet (10 mg total) by mouth 2 (two) times a day as needed for muscle spasms., Starting Tue04/15/2020, Print gabapentin (NEURONTIN) 300 MG capsule Take 1 capsule (300 mg total) by mouth 3 (three) times a day.,Starting Tue04/15/2020, Print oxyCODONE (ROXICODONE) 5 MG immediate release tablet Take 1 tablet (5 mg total) by mouth every 6 (six) hours as needed., Starting Tue04/15/2020, Print CONTINUE these medications which have NOT [...] hours X 1 if incomplete relief., Starting Tue12/27/2019, Print HPI Patient information was obtained from: the patient Use of Intrepreter: N/A Keyla Porter is a 29 y.o. female with a pertinent history of chronic midline low back pain without sciatica, kidney stone, and depression with anxiety, who presents to this ED by private car for evaluation of back injury. 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 The bottom of the tool box dropped down and hit her in the thighs, knocking her back into a wall. She hit the left side of her lower back on the wall very hard. Since then she has been experiencing progressively worsening low back and posterior pelvic pain. The pain is very sharp and concentrated in one area in her left lower back, but then at times it shoots down her left leg. Standing straight up and walking makes the pain worse and shoot down her leg. She is also experiencing numbness in the left groin and thigh area. She denies bladder or bowel incontinence. The patient took 10 mg of desoximethasone at 1800 last night along with ibuprofen and icing her back. None of which helped her back pain and she was unable to sleep last night due to the pain. The patient has a history of a bulging and herniated lumbar discs, for which she has received steroid injections. The last timeshe received injections was 13 months ago. [facility] her [facility] problems. She denies any other symptoms or complaints at this time. REVIEW OF SYSTEMS Review of Systems Constitutional: Negative for fever. Gastrointestinal: Negative for abdominal pain and constipation. Denies bowel incontinence. Genitourinary: Negative for difficulty urinating and enuresis. Musculoskeletal: Positive for back pain (left lower back). Skin: Negative for rash. Neurological: Negative for weakness and numbness. Psychiatric/Behavioral: Negative for confusion. All other systems reviewed and are negative. [...] Procedure: SECTION; Surgeon: Holland Thomas MD; Location: [facility]D ID; Service: ??? COLPOSCOPY 2011 ??? ENDOMETRIAL ABLATION during one of the laparotomies ??? EXPLORATORY LAPAROTOMY 3x - last in 10/2015, 2010, Gyne surgeon in 2015 states no contraindication to vaginal per patient ??? IUD removal 11/13/2015 laproscopic procedure ??? LAPAROSCOPIC HYSTERECTOMY N/A 12/21/2017 Procedure: ROBOTC TOTAL LAPAROSCOPIC HYSTERECTOMY, BILATERAL SALPINGECTOMY ; Surgeon: Holland Thomas MD; Location: [facility] OR; Service: ??? [place] LAP,FULGURATE/EXCISE LESIONS Right 03/25/2017 Procedure: LAPAROSCOPY, OVARIAN CYSTECTOMY; Surgeon: oHlland Thomas MD; Location: [facility] OR; Service: Gynecology CURRENT MEDICATIONS: No current [...] resource strain: Not on file ??? Food insecurity Worry: Not on file Inability: Not on file ??? Transportation needs Medical: Not on file Non-medical: Not on file Tobacco Use ??? Smoking status: Former Smoker Last attempt to quit: 03/14/2019 Years since quittin.0 ??? Smokeless tobacco: Never Used Substance and Sexual Activity ??? Alcohol use: No ??? Drug use: No ??? Sexual activity: Yes control/protection: I.U.D., None Lifestyle ??? Physical activity Days per week: Not on file Minutes per session: Not on file ??? Stress: Not on file Relationships ??? Social connections Talks on phone: Not on file Gets together: Not on file Attends restorationism service: Not on file Active member of club or organization: Not on file Attends meetings of clubs or organizations: Not on file Relationship status: Not on file ??? Intimate partner violence Fear of current or ex partner: Not on file Emotionally abused: Not on file Physically abused: Not on file Forced sexual activity: Not on file Other Topics Concern ??? Not on file Social History Narrative ??? Not on file VITALS: Patient Vitals for the past 24 hrs: BP Temp Pulse Resp SpO2 Height Weight 04/15/20 1807 135/72 -- 61 -- 100 % -- -- 04/15/20 1449 148/82 98.7 ??F (37.1 ??C) 73 16 97 % 5' 8 (1.727 m) 182 lb (82.6 kg) PHYSICAL EXAM Vitals: BP 135/72 Pulse 61 Temp 98.7 ??F (37.1 ??C) Resp 16 Ht 5' 8 (1.727 m) Wt 182 lb (82.6 kg) LMP 01/14/2017 (Exact Date) SpO2 100% BMI 27.67 kg/m?? Vitals: BP 135/72 Pulse 61 Temp 98.7 ??F (37.1 ??C) Resp 16 Ht 5' 8 (1.727 m) Wt 182 lb (82.6 kg) LMP 01/14/2017 (Exact Date) SpO2 100% BMI 27.67 kg/m?? General: Appears in no acute distress, awake, alert, interactive. Eyes: Conjunctivae non-injected. Sclera anicteric. HENT: Atraumatic. Neck: Supple. Respiratory/Chest: Respiration unlabored. Abdomen: non distended Musculoskeletal: Normal extremities. No edema or erythema. Skin: Normal color. No rash or diaphoresis. Neurologic: Face symmetric, moves all extremities spontaneously. Speech clear. Psychiatric: Oriented to person, place, and time. Affect appropriate. Walks leaning forward able to stand on toes and heels, normal bilateral ankle dorsiflexion/plantar flexion/inversion/eversion/1st toe extension, normal bilateral patellar and Achilles reflexes. Does have some midline spine tenderness to lumbar region. No step offs. No crepitus. No visible deformity to spine. No pulsatile abdominal masses. Decreased light touch sensation to inguinal crease on left andto anterior thigh on left LAB: All pertinent labs reviewed and interpreted. No results found for this visit on 04/15/20. RADIOLOGY: Reviewed all pertinent imaging. Please see official radiology report. Mr Lumbar Spine Without Contrast Result Date: 04/15/2020 EXAM: MR LUMBAR SPINE WO CONTRAST LOCATION: [facility] DATE/TIME: 04/15/2020 4:31 PM INDICATION: Exam numbness l1-l2 left distribution, pos SLR COMPARISON: Lumbar spine MRI 03/08/2019. TECHNIQUE: Without IV contrast FINDINGS: Nomenclature assumes 5 lumbar-type vertebral bodies. Straightening of the normal lumbar lordosis. The vertebral bodies of the lumbar spine otherwise have normal stature, alignment, and marrow signal intensity. The conus terminates at the L1/L2 level and has normal morphology and appearance. T12/L1: Normal disc signal and disc height. No posterior disc bulge or spinal canal narrowing. Mild facet arthropathy. No neural foraminal narrowing. L1/L2: Normal disc signal and disc height. No posterior disc bulge or spinal canal narrowing. No neural foraminal narrowing. L2/L3: Normal disc signal and disc height. No posterior disc bulge or spinal canal narrowing. Mild bilateralfacet arthropathy. No neural foraminal narrowing. L3/L4: Mild loss of disc signal and disc height. Symmetric disc bulge, posterior annular fissure with a small superimposed focal central disc protrusion with moderate spinal canal and left lateral recess narrowing with abutment of the descending left L4 nerve root. Mild bilateral facet arthropathy. Mild bilateral neural foraminal narrowing. L4/L5: Mild loss of disc signal and disc height. Symmetric disc bulge and posterior annular fissure with mild spinal canal narrowing. Mild bilateral neural foraminal narrowing. L5/S1: Symmetric disc bulge, posterior annular fissure with a superimposed focal disc protrusion within the left lateral recess contributing to left lateral recess narrowing with abutment of the descending left S1 nerve root without impingement. Mild spinal canal narrowing. Mild bilateral facet arthropathy. Mild bilateral neural foraminal narrowing. 1. Multilevel degenerative disc disease of the lumbar spine with symmetric disc bulges, most pronounced at the L3/L4 level where there is a symmetric disc bulge, posterior annular fissure with a small superimposed focal central disc protrusion with moderate spinal canal and left lateral recess narrowing with abutment of the descending left L4 nerve root. 2. Multilevel posterolateral disc disease and facet arthropathy with mild multilevel neural foraminal narrowing as described. I, Luis Friedman, am serving as a scribe to document services personally performed by Dr. Dubois based on my observation and the provider's statements to me. I, Sammy Dubois MD attest that Luis Friedman is acting in a scribe capacity, has observed my performance of the services and has documented them in ac cordance with my direction. Sammy Dubois M.D. Emergency Medicine [facility] EMERGENCY DEPARTMENT [address] [facility] [id number] Dept: [phone] Loc: [phone] Andera Dubois MD 04/15/201915 Sha Acosta RN - 04/15/2020 2:46 PM CDT Pt was lifting a tool box when it opened causing her to lose balance hitting her back against the wall now has numbness in the left side of her groin back documented in this encounter Plan of Treatment Not on filedocumented as of this encounter Procedures Procedure Name Priority Date/Time Associated Diagnosis Comme nts MR LUMBAR SPINE W/O Routine 04/15/2020 4:31 PM Re sults for this CONTRAST CDT procedure are i n the results section. documented in this encounter Results MR Lumbar Spine w/o Contrast (04/15/2020 4:31 PM CDT) Anatomical Region Laterality Modality Spine, SUBRAD MR NEURO, UMP MR SPINE, RAD MR Other Specimen (Source) Anatomical Location Collection Method / Collectio n Time Received Time / Laterality Volume Impressions 04/15/2020 4:53 PM CDT 1. ??Multilevel degenerative disc disease of the lumbar spine with symmetric disc bulges, most pronounced at the L3/L4 level where there is a symmetric disc bulge, posterior annular fissure with a small superimposed focal central disc protrus ion with moderate spinal canal and left lateral r ecess narrowing with abutment of the descending left L4 nerve root. 2. ??Multilevel posterolateral disc dise ase and facet arthropathy with mild multilevel neural foraminal narrowing as described. Narrative 04/15/2020 4:53 PM CDT EXAM: MR LUMBAR SPINE WO CONTRAST LOCATION: [facility] DATE/TIME: 04/15/2020 4:31 PM INDICATION: Exam numbness l1-l2 left dis tribution, pos SLR COMPARISON: Lumbar spine MRI 03/08/2019. TECHNIQUE: Without IV contrast FINDINGS: Nomenclature assumes 5 lumbar-type verte bral bodies. Straightening of the normal lumbar lordosis. The vertebral bodies of the lumbar spine otherwise have normal stature, alignment, and marrow signal intensity. The conus terminates at the L1/L2 level and has normal morphology and appearance. T12/L1: ??Normal disc signal and disc he ight. No posterior disc bulge or spinal canal narrowing. Mild facet arthropathy. No neural foraminal narrowing. L1/L2: ??Normal disc signal and disc hei ght. No posterior disc bulge or spinal canal narrowing. No neural foraminal narrowing. L2/L3: ??Normal disc signal and disc hei ght. No posterior disc bulge or spinal canal narrowing. Mild bilateral facet arthropathy. No neural foraminal narrowing. L3/L4: ??Mild loss of disc signal and di sc height. Symmetric disc bulge, posterior annular fissure with a small superimposed focal central disc protrusion with moderate spinal canal and left lateral rec ess narrowing with abutment of the desce nding left L4 nerve root. Mild bilateral facet arthro keron. Mild bilateral neural foraminal narrowing. ?? L4/L5: ??Mild loss of disc signal and di sc height. Symmetric disc bulge and posterior annular fissure with mild spinal canal narrowing. Mild bilateral neural foraminal narrowing. L5/S1: Symmetric disc bulge, posterior a nnular fissure with a superimposed focal disc protrusion within the left lateral recess contributing to left lateral recess narrowing with abutment of the descend ing left S1 nerve root without impingeme nt. Mild spinal canal narrowing. Mild bilateral f acet arthropathy. Mild bilateral neural foraminal narrowing. Procedure Note Samy Willams MD - 04/30/2021Formatt ing of this note might be different from the original. EXAM: MR LUMBAR SPINE WO CONTRAST LOCATION: [facility] DATE/TIME: 04/15/2020 4:31 PM INDICATION: Exam numbness l1-l2 left dis tribution, pos SLR COMPARISON: Lumbar spine MRI 03/08/2019. TECHNIQUE: Without IV contrast FINDINGS: Nomenclature assumes 5 lumbar-type verte bral bodies. Straightening of the normal lumbar lordosis. The vertebral bodies of the lumbar spine otherwise have normal stature, alignment, and marrow signal intensity. The conus terminates at the L1/L2 level and has normal morphology and appearance. T12/L1: Normal disc signal and disc heig ht. No posterior disc bulge or spinal canal narrowing. Mild facet arthropathy. No neural foraminal narrowing. L1/L2: Normal disc signal and disc heigh t. No posterior disc bulge or spinal canal narrowing. No neural foraminal narrowing. L2/L3: Normal disc signal and disc heigh t. No posterior disc bulge or spinal canal narrowing. Mild bilateral facet arthropathy. No neural foraminal narrowing. L3/L4: Mild loss of disc signal and disc height. Symmetric disc bulge, posterior annular fissure with a small superimposed focal central disc protrusion with moderate spinal canal and left lateral recess narrowing with abutment of the descending left L4 nerve root. Mild bilateral facet arthro keron. Mild bilateral neural foraminal narrowing. L4/L5: Mild loss of disc signal and disc height. Symmetric disc bulge and posterior annular fissure with mild spinal canal narrowing. Mild bilateral neural foraminal narrowing. L5/S1: Symmetric disc bulge, posterior a nnular fissure with a superimposed focal disc protrusion within the left lateral recess contributing to left lateral recess narrowing with abutment of the descending left S1 nerve root without impingement. Mild spinal canal narrowing. Mild bilateral f acet arthropathy. Mild bilateral neural foraminal narrowing. IMPRESSION: 1. Multilevel degenerative disc disease of the lumbar spine with symmetric disc bulges, most pronounced at the L3/L4 level where there is a symmetric disc bulge, posterior annular fissure with a small superimposed focal central disc protrusion with moderate spinal canal and left lateral r ecess narrowing with abutment of the descending left L4 nerve root. 2. Multilevel posterolateral disc diseas e and facet arthropathy with mild multilevel neural foraminal narrowing as described. 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
--- OUTSIDE RECORDS SUMMARY | 2022-08-31 22:23 | XMS_ITS | Encounter Summary ---
:1990 Author Organization [place] Address [address] [place] [address] Care Team Providers Name Role Phone Holland Thomas MD Primary Care Provider [phone] Reason for Visit Reason Comments Otalgia Encounter Details Date Type Department Care Team Description 07/12/2020 [facility] Ronak Duvall MD Sialadenitis; [place] [address] [employer] Migraine with aura and with status migra inosus, not intractable [place] [address] [place] [address] [place] [address] Social History Tobacco Use Types Packs/Day Years [...] - Inhaled Oxygen Concentration - - Weight 80.7 kg (178 lb) 07/12/2020 6:51 AM CDT Height - - Body Mass Index 27.88 05/28/2020 10:10 PM CDT documented in this [...] documented as of this encounter ED Notes Ronak Duvall MD - 07/12/2020 7:14 AM CDT EMERGENCY DEPARTMENT ENCOUNTER NAME: Keyla Porter AGE: 29 y.o. female DATE OF : 1990 EVALUATION DATE & TIME: 07/12/2020 6:51 AM PCP: Holland Thomas MD ED PROVIDER: Ronak Duvall M.D. Chief Complaint Patient presents with ??? Ear Pain FINAL IMPRESSION: 1. Sialadenitis 2. Migraine with aura and with status migrainosus, not intractable ED COURSE & MEDICAL DECISION MAKING: Pertinent Labs & Imaging studies reviewed. (See chart for details) 29 y.o. female presents to the Emergency Department for evaluation of pain near her ear. She had a normal ear exam and intraorally no lesions. There is no palpable abscess or any signs of infection. Pain was localizable to the parotid gland and I believe this most likely represents saliadenitis or possibly a salivary duct stone. Because of the possibility of infectious causes and because the patient is uncomfortable I will give her a prescription for antibiotics and have her use sialagogues s and follow-up with her primary doctor. 7:09 AM I met with the patient to gather history and to perform my initial exam wearing goggles, andN95 mask. I discussed the plan for care while in the Emergency Department. 7:12 AM The patient states that she did not drive to the ED today. At the conclusion of the encounter I discussed the results of all of the tests and the disposition. The questions were answered. The patient or family acknowledged understanding and was agreeable with the care plan. MEDICATIONS GIVEN IN THE EMERGENCY: Medications ketorolac injection 60 mg (TORADOL) (60 mg Intramuscular Given 07/12/20 0732) HYDROmorphone injection 0.5 mg (DILAUDID) (0.5 mg Intramuscular Given 07/12/20 0732) NEW PRESCRIPTIONS STARTED AT TODAY'S ER VISIT Discharge Medication List as of 07/12/2020 7:59 AM START taking these medications Details amoxicillin-clavulanate (AUGMENTIN) 875-125 mg per tablet Take 1 tablet by mouth every 12 (twelve) hours for 7 days., Starting 07/12/2020, Until 07/19/2020, Normal HYDROcodone-acetaminophen 5-325 mg per tablet Take 1 tablet by mouth every 4 (four) hours as needed for pain., Starting Tue07/12/2020, Print CONTINUE these medications which have NOT [...] as needed for pain., Starting Tue08/10/2019, Normal ondansetron (ZOFRAN ODT) 4 MG disintegrating tablet Take 1 tablet (4 mg total) by mouth every 8 (eight) hours as needed., Starting Tue05/29/2020, Print oxyCODONE (ROXICODONE) 5 MG immediate release tablet Take 1 tablet (5 mg total) by mouth every 6 (six) hours as needed for pain., Starting Tue05/29/2020, Print SUMAtriptan (IMITREX) 50 MG tablet Take 1 tablet (50 mg total) by mouth once as needed for migraine.May repeat after 2 hours X 1 if incomplete relief., Starting Tue12/27/2019, Print metoclopramide (REGLAN) 10 MG tablet Take 1 tablet (10 mg total) by mouth every 6 (six) hours as needed for nausea., Starting Tue08/09/2019, Print HPI Patient information was obtained from: the patient Use of Aircraft Magneto Mechanic: N/A Keyla Porter is a 29 y.o. female with a pertinent history of hypotension, endometriosis, kidneystone, depression and anxiety who presents to this ED ambulatory for evaluation of ear pain. Tuesday around midnight, the patient noticed pain in front of her right ear that radiates to her jaw,eye, and behind her ear. She says she cannot open her jaw fully due to the pain and also notes nausea and a headache. Yesterday at 2:30PM, she had a fever (subjective) and took ibuprofen and applied hot/cold presses tothe area without any relief. She says that her teeth feel aligned when together and that she's never had pain like this in the past. Denies any chills, tooth pain, or any other complaints at this time. REVIEW OF SYSTEMS Review of Systems Constitutional: Negative for chills. HENT: Positive for ear pain (right sided). Negative for tooth pain Gastrointestinal: Positive for nausea. Neurological: Positive for headaches. All other systems reviewed and are negative. [...] Procedure: SECTION; Surgeon: Holland Thomas MD; Location: [facility]; Service: ??? COLPOSCOPY 2011 ??? ENDOMETRIAL ABLATION during one of the laparotomies ??? EXPLORATORY LAPAROTOMY 3x - last in 10/2015, 2010, Gyne surgeon in 2015 states no contraindication to vaginal per patient ??? IUD removal 11/13/2015 laproscopic procedure ??? LAPAROSCOPIC HYSTERECTOMY N/A 12/21/2017 Procedure: ROBOTC TOTAL LAPAROSCOPIC HYSTERECTOMY, BILATERAL SALPINGECTOMY ; Surgeon: Holland Thomas MD; Location: [facility]; Service: ??? AL LAP,FULGURATE/EXCISE LESIONS Right 03/25/2017 Procedure: LAPAROSCOPY, OVARIAN [...] 6 (six) hoursas needed for pain. ??? ondansetron (ZOFRAN ODT) 4 MG disintegrating [...] X 1 if incomplete relief. ??? [DISCONTINUED] metoclopramide (REGLAN) 10 MG tablet Take 1 tablet (10 mg total) by mouth every 6(six) hours as needed for nausea. ALLERGIES: Allergies Allergen Reactions ??? Blood-Group Specific [...] quittin.3 ??? Smokeless tobacco: Never Used Substance and Sexual Activity ??? Alcohol use: No ??? Drug use: No ??? Sexual activity: Yes control/protection: I.U.D., None Lifestyle ??? Physical activity Days per week: None Minutes per session: None ??? Stress: None Relationships ??? Social connections Talks on phone: None Gets together: None Attends scientologist service: None Active member of club or [...] BP Temp Temp src Pulse Resp SpO2 Weight 07/12/20 0735 135/76 -- -- 67 -- 98 % -- 07/12/20 0651 129/77 98.8 ??F (37.1 ??C) Oral 81 16 96 % 178 lb (80.7 kg) PHYSICAL EXAM Constitutional: Well developed, Well nourished, NAD, GCS 15 HENT: Pain anterior to auricle. Mild swelling around the parotid gland. No erythema or warmth. Mild pain with palpation of parotid duct on the right. No purulence or inflammation intraorally. No other swellings. TM's clear. No sign of otitis externa. Oropharynx normal, mucous membranes moist, Nose normal. Neck- Normal range of motion, No tenderness, Supple, No stridor. Eyes: PERRL, EOMI, Conjunctiva normal, No discharge. Respiratory: Normal breath sounds, No respiratory distress, No wheezing, Speaks full sentences easily. No cough. Cardiovascular: Normal heart rate, Regular rhythm, No murmurs, No rubs, No gallops. Chest wall nontender. GI:Soft, No tenderness, No masses, No flank tenderness. No rebound or guarding. Musculoskeletal: 2+ DP pulses. No edema.No cyanosis, No clubbing. Good range of motion in all major joints. No tenderness to palpation or major deformities noted. Integument: Warm, Dry, No erythema, No rash. No petechiae. Neurologic: Alert & oriented x 3, CN 3-12 intact Normal motor function, Normal sensory function,No focal deficits noted. Normal gait. Normal finger to nose bilaterally Psychiatric: Affect normal, Judgment normal, Mood normal. Cooperative. LAB: All pertinent labs reviewed and interpreted. No results found for this visit on 07/12/20. RADIOLOGY: Reviewed all pertinent imaging. Please see official radiology report. No results found. I, Ronak Duvall, am serving as a scribe to document services personally performed by Dr. Duvall based on my observation and the provider's statements to me. IRonak MD attest that Ronak Nick is acting in a scribe capacity, has observed my performance of the services and has documentedthem in accordance with my direction. Ronak Duvall M.D. Emergency Medicine [facility] EMERGENCY DEPARTMENT [address] [facility] [address] Dept: [phone] Loc: [phone] Ronak Duvall MD 07/12/20 1241 Sharon Barroso RN - 07/12/2020 6:52 AM CDT Pt states Tuesday morning pain beg to right outer ear began. Noticed lump in front of ear. States pain now radiates to right side jaw and behind right eye. Pain makes it difficult to open mouth. Ibuprofen at 1400 yesterday. documented in this encounter Plan of Treatment Not on filedocumented as of this encounter Visit Diagnoses Diagnosis Sialadenitis Sialoadenitis Migraine with aura and with status migra inosus, not intractable Migraine with aura, with intractable lisa constantin, so stated, with status migrainosus documented in this encounter Additional Health Concerns Assessment Noted Time PHQ-9 Depression Total Score: 19 09/04/2015 7:20 AM CD T documented as of this encounter Care Teams Kiln Car Unloader Relationship Specialty Start Date End Date Holland Thomas MD PCP - General thermal technician 04/15/[address] [place] [address] [address] [place] [address] documented as of this encounter
--- OUTSIDE RECORDS SUMMARY | 2022-08-31 22:23 | XMS_ITS | Encounter Summary ---
:1990 Author Organization [facility] Address [facility] [place] [address] Care Team Providers Name Role Phone Holland Thomas MD Primary Care Provider [phone] Reason for Visit Reason Comments Eye Problem Encounter Details Date Type Department Care Team Description 07/14/2020 Emergency [facility], Sherrill Lam zoster without [facility] DO complication Emergency Room EMERGENCY CARE [address] [facility] [place] [address] [facility] [address] [place] [address] [place], [place] [id number] Social History Tobacco Use Types Packs/Day Years [...] documented as of this encounter ED Notes Home Rowley DO - 07/14/2020 10:38 AM CDT EMERGENCY DEPARTMENT ENCOUnter NAME: Keyla Porter AGE: 29 y.o. female DATE OF : 1990 EVALUATION DATE & TIME: 07/14/2020 10:32 AM PCP: Holland Thomas MD ED PROVIDER: Home Rowley DO Chief Complaint Patient presents with ??? Eye Problem FINAL IMPRESSION: Herpes zoster ophthalmicus ED COURSE & MEDICAL DECISION MAKING: ED Course as of Jul 14 1128 TueJul 14, 2020 1041 Patient is a 29-year-old who was diagnosed with herpes zoster involving the right side of her face yesterday. Had vesicular lesions. Sent home with valacyclovir and pain medication however returning today with increasing right eye pain and right facial pain. Patient states that she was unable to afford valacyclovir. Started throwing up last night. Unable to tolerate p.o. On arrival she is crying. Looks uncomfortable. Has redness with no significant vesicular lesions on right side of her face. [SO] [address] Leonard who will see patient at the [facility] at 4 PM. Patient states she has a ride home now. Given pain medication. [SO] ED Course User Index [SO] Home Rowley DO -Patient feeling significantly better after IV pain medication. Mother at bedside now states she will pay for patient's valacyclovir. [facility] - Nausea controlled. Tolerated p.o. Patient looks substantially better on discharge. 10:34 AM I met with the patient to gather history and to perform my initial exam wearing goggles, and N95 mask. I discussed the plan for care while in the Emergency Department. 11:04 AM I spoke with Dr. Robles, [facility]. 11:15 AM I updated the patient on her [facility] appointment time for today. 11:43 AM I checked on the patient, who states she is feeling better. 12:08 PM I discussed the plan for discharge with the patient, and patient is agreeable. All questions and concerns addressed. Patient to be discharged by RN. At the conclusion of the encounter I discussed ??the results of all of the tests and the dispositionwith patient. ?All questions were answered. ??The patient??acknowledged understanding and was involved in the decision making regarding the overall care plan. ? I discussed with patient the utility, limitations and findings of the exam/interventions/studies done during this visit as well as the list of differential diagnosis and symptoms to monitor/return to ER for. ??Additional verbal discharge instructions were provided. MEDICATIONS GIVEN IN THE EMERGENCY: Medications naloxone injection 0.2-0.4 mg (NARCAN) (has no administration in time range) Or naloxone injection 0.2-0.4 mg (NARCAN) (has no administration in time range) sodium chloride flush 10 mL (NS) (has no administration in time range) ondansetron disintegrating tablet 4 mg (ZOFRAN-ODT) (4 mg Oral Given 07/14/20 1051) valACYclovir tablet 1,000 mg (VALTREX) (1,000 mg Oral Given 07/14/20 1107) ketorolac injection 15 mg (TORADOL) (15 mg Intramuscular Given 07/14/20 1052) HYDROmorphone injection 0.5 mg (DILAUDID) (0.5 mg Intravenous Given 07/14/20 1122) NEW PRESCRIPTIONS STARTED AT TODAY'S ER VISIT [...] aura and with status migrainosus, not intractable valACYclovir (VALTREX) 1000 MG tablet Take 1 tablet (1,000 mg total) by mouth 3 (three) times a day for 7 days. Qty: 21 tablet, Refills: 0 Associated Diagnoses: Herpes zoster without complication !! - Potential duplicate medications found. Please discuss with provider. HPI Patient information was obtained from: the patient Use of Intrepreter: N/A Keyla Porter is a 29 y.o. female with history of migraine, endometriosis, anxiety and depression who presents to the ED ambulatory for eye pain. For the past three days, the patient has had constant worsening right eyeball pain which she states is light sensitive and hard to open. She also notes scalp lesions that are not getting better. Since last night at 5PM, she's been vomiting each time she tries to take [place] for pain. She was prescribed valacyclovir yesterday but states she has not picked it up because she cannot afford it. Denies ear pain or any other symptoms at this time. 07/13/2020: The patient was seen here in the ED for right-sided facial pain. Pain improved with proparacaine drops. She was diagnosed with shingles, sent home with valacyclovir, and told to follow-up with [facility] or return as needed. REVIEW OF SYSTEMS Review of Systems Constitutional: Negative for fever, chills and fatigue. HENT: Negative for neck pain. Eyes: Positive for photophobia, eye pain. Negative for visual disturbance. Respiratory: Negative for chest tightness and shortness of breath. Cardiovascular: Negative for chest pain. Gastrointestinal: Positive for vomiting. Negative for nausea, abdominal pain and diarrhea. Genitourinary: Negative for dysuria. Musculoskeletal: Negative for back pain. Skin: Positive for scalp lesions. Negative for color change. Neurological: Negative for dizziness, weakness and numbness. All other systems reviewed [...] Procedure: SECTION; Surgeon: Holland Thomas MD; Location: [facility]; Service: ??? COLPOSCOPY 2011 ??? ENDOMETRIAL ABLATION during one of the laparotomies ??? EXPLORATORY LAPAROTOMY 3x - last in 10/2015, 2010, Gyne surgeon in 2015 states no contraindication to vaginal per patient ??? IUD removal 11/13/2015 laproscopic procedure ??? LAPAROSCOPIC HYSTERECTOMY N/A 12/21/2017 Procedure: ROBOTC TOTAL LAPAROSCOPIC HYSTERECTOMY, BILATERAL SALPINGECTOMY ; Surgeon: Holland Thomas MD; Location: [facility] OR; Service: ??? [place] LAP,FULGURATE/EXCISE LESIONS Right 03/25/2017 Procedure: LAPAROSCOPY, OVARIAN CYSTECTOMY; Surgeon: Holland Thomas MD; Location: [facility]; Service: Gynecology CURRENT MEDICATIONS: No current facility-administered medications on file prior to encounter. Current Outpatient Medications on File Prior to Encounter Medication Sig ??? amoxicillin-clavulanate (AUGMENTIN) 875-125 mg per tablet Take 1 tablet by mouth every 12 (twelve) hours for 7 days. ??? cyclobenzaprine (FLEXERIL) 10 MG tablet Take [...] hours X 1 if incomplete relief. ??? valACYclovir (VALTREX) 1000 MG tablet Take 1 tablet (1,000 mg total) by mouth 3 (three) times a day for 7 days. ALLERGIES: Allergies Allergen Reactions ??? Blood-Group Specific [...] on phone: None Gets together: None Attends voodoo service: None Active member of club or [...] BP Temp Temp src Pulse Resp SpO2 07/14/20 1035 135/87 99.2 ??F (37.3 ??C) Oral 68 22 99 % PHYSICAL EXAM Constitutional: Well developed, well nourished, no acute distress EYES: Scleral injection on the right eye. Extraocular motion intact. Pupils equal round reactive. HENT: Atraumatic, external ears normal, nose normal, oropharynx moist. Neck- supple. Patient has redblotchy rashes with some very small vesicular lesions on the forehead and posterior scalp. Does not cross midline. Suggesting zoster. No TM involvement. Respiratory: No respiratory distress, normal breath sounds, no rales, no wheezing Cardiovascular: Normal rate, normal rhythm, no murmurs, capillary refill normal. No chest tenderness GI: Soft, nondistended, nontender, no palpable masses, no rebound, no guarding : No CVA tenderness Musculoskeletal: No edema. Range of motion major extremities intact. No tenderness to palpation or major deformities noted. Integument: Warm, Dry, No erythema, No rash. Neurologic: Alert & oriented, no focal deficits noted, ambulatory Psych: Affect normal, Mood normal. LAB: All pertinent labs reviewed and interpreted. No results found for this visit on 07/14/20. RADIOLOGY: Reviewed all pertinent imaging. Please see official radiology report. No results found. Procedures Yasmeen Gonzalez, am serving as a scribe to document services personally performed by Dr. Home Rowley based on my observation and the provider's statements to me. I, Home Rowley DO attest that Yasmeen Castrejon is acting in a scribe capacity, has observed my performance of the services and has documented them in accordance with my direction. Home Rowley D.O. Emergency Medicine [facility] EMERGENCY DEPARTMENT [address] [facility] [address] Dept: [phone] Loc: [phone] Home Rowley DO 07/14/20 1255 Becca Rizo RN - 07/14/2020 10:34 AM CDT Patient has shingles in right eye. Swelling, redness, drainage and pain. documented in this encounter Plan of Treatment Not on filedocumented as of this encounter Visit Diagnoses Diagnosis Herpes zoster without complication documented in this encounter Additional Health Concerns Assessment Noted Time PHQ-9 Depression Total Score: 19 09/04/2015 7:20 AM CD T documented as of this encounter Care Teams Auto Garage Attendant Relationship Specialty Start Date End Date Holland Thomas MD PCP - General answering service operator 04/15/20 [facility] [address] [place] [address] documented as of this encounter
--- OUTSIDE RECORDS SUMMARY | 2022-08-31 22:23 | XMS_ITS | Encounter Summary ---
:1990 Author Organization [place] Address [address] [place] [address] Care Team Providers Name Role Phone Holland Thomas MD Primary Care Provider [phone] Encounter Details Date Type Department Care Team Description 04/18/2021 Records - [facility] SAMI CONVERSION Provider, Histor ical Social History Tobacco [...] Associated Diagnosis Comme nts CT HEAD W/O Routine 08/11/2005 12:00 AM Results for this CONTRAST CDT procedure are i n the results section. XR CERVICAL SPINE Routine 08/11/2005 12:00 AM Res ults for this 2/3 VIEWS CDT procedure are i n the results section. documented in this encounter Results CT Head w/o Contrast (08/11/2005 12:00 AM CDT) Anatomical Region Laterality Modality Head, SUBRAD CT NEURO, SUBRAD CT NEURO, UMP CT NEURO, Computed Tomography RAD CT Specimen (Source) Anatomical Location Collection Method / Collectio n Time Received Time / Laterality Volume Narrative 08/11/2005 12:00 AM CDT See Historical Hospital Medical Record f or documentation Procedure Note Provider, Historical - 04/18/2021Formatt ing of this note might be different from the original. See Historical Hospital Medical Record f or documentation Historical Provider IMG CT ORDERABLES XR Cervical Spine 2/3 Views (08/11/2005 12:00 AM CDT) Anatomical Region Laterality Modality Spine Other Specimen (Source) Anatomical Location Collection Method / Collectio n Time Received Time / Laterality Volume Narrative 08/11/2005 12:00 AM CDT See Historical [facility] Medical Record f or documentation Procedure Note Provider, Historical - 04/18/2021Formatt ing of this note might be different from the original. See Historical Hospital Medical Record f or documentation Historical Provider IMG DIAGNOSTIC IMAGING ORDER SUBHA documented in this encounter Visit Diagnoses Not on filedocumented in this encounter Additional Health Concerns Assessment Noted Time PHQ-9 Depression Total Score: 19 09/04/2015 7:20 AM CD T documented as of this encounter Care Teams Station Chief Relationship Specialty Start Date End Date Holland Thomas MD PCP - General parts representative 04/15/20 [address] [address] documented as of this encounter
--- OUTSIDE RECORDS SUMMARY | 2022-08-31 22:23 | XMS_ITS | Encounter Summary ---
:1990 Author Organization [place] Address [facility] [place] [address] Care Team Providers Name Role Phone No Ref-Primary, Physician Primary Care Provider [phone] Reason for Visit Reason Comments Laceration Encounter Details Date Type Department Care Team Description 12/03/2019 Emergency [facility], Yakelin Lu, DO Laceration of right [facility] EMERGENCY CARE index fin stacye without [facility] [employer] foreign body without [address] damage to nail, [place], [place] [address] initial encounter [id number] [phone] Social History Tobacco Use Types Packs/Day Years [...] - Inhaled Oxygen Concentration - - Weight 78 kg (172 lb) 12/03/2019 12:25 PM FIRST OFFICER Height 170.2 cm (5' 7) 12/03/2019 12:25 PM FIRST OFFICER Body Mass Index 26.94 12/03/2019 12:25 PM FIRST OFFICER documented in this encounter Medications at Time [...] documented as of this encounter ED Notes Yakelin Dolan DO - 12/03/2019 3:08 PM CST EMERGENCY DEPARTMENT ENCOUNTER NAME: Keyla Porter AGE: 29 y.o. female DATE OF : 1990 EVALUATION DATE & TIME: 12/03/2019 3:02 PM PCP: Holland Thomas MD ED PROVIDER: Afshan Dolan DO Chief Complaint Patient presents with ??? Finger Laceration FINAL IMPRESSION: 1. Laceration of right index finger without foreign body without damage to nail, initial encounter ED COURSE & MEDICAL DECISION MAKIN:28 PM Met with patient for initial interview and exam. Discussed initial plan for care for their stay in the emergency department. 3:38 PM I performed a digital block. 3:45 PM I rechecked the patient. Wound explored under clean, bloodless field, no evidence of foreignbody or tendon involvement. 3:53 PM I performed a laceration repair. 4:05 PM I updated the patient with results and discussed the plan for discharge, and patient is agreeable. We discussed supportive cares at home and reasons for return to the ER including new or worsening symptoms - all questions and concerns addressed. The patient was interviewed and examined. History in the chart was reviewed. 29 y.o. female presents to the Emergency Department for evaluation of a finger laceration. 29 y.o. female presented with laceration of the right second requiring suture closure. Tetanus up todate. Irrigated with 100 mL normal saline. Anesthetized with 2 mL Lidocaine 2% without epinephrine using a digital block. Closed with #3 ethilon sutures. Applied bacitracin and dressing. Wound care instructions provided. Informed to return to ED if concerns for infection including redness/pain/drainage, wound dehiscence, or other concerns At the conclusion of the encounter I discussed the results of all of the tests and the disposition with the patient. All questions were answered. The patient acknowledged understanding and was involvedin the decision making regarding the overall care plan. I discussed with the patient the utility, limitations and findings of the exam/interventions/studies done during this visit as well as the list of differential diagnosis and symptoms to monitor/returnto ER for. Additional verbal discharge instructions were provided. MEDICATIONS GIVEN IN THE EMERGENCY: Medications bacitracin ointment packet 1 packet (has no administration in time range) NEW PRESCRIPTIONS STARTED AT TODAY'S ER VISIT [...] and with status migrainosus, not intractable HPI Patient information was obtained from: patient Use of Motorcycle Maker: N/A Keyla Porter is a 29 y.o. female with no pertinent medical history of, [facility]. Patient reports a laceration to her right index finger which began just prior to her arrival to the ED with accompanying right index finger pain. Her pain is a constant 7/10, which radiates to her right wrist. The pain is provoked with bending and palpation. Patient is able to bend the finger. She also notes some mild numbness in only the tip of her right index finger. Patient states receiving the laceration after a glass jar fell onto her hand as her refrigerator shelf collapsed. She notes cleaningthe refrigerator at the time the shelf collapsed. Patient reports immediately rinsing the lacerationwith cold water. She denies using any ointment on the laceration. Patient reports bandaging the laceration with Band-Aids. She notes changing the bandages 3 times until the bleeding was controlled. Patient is right handed. She denies taking any regular medications. Patient states an allergy to morphine. Her last tetanus shot was routine, and she notes receiving it about 6 months ago. No other complaints or concerns expressed at this time. REVIEW OF SYSTEMS Review of Systems Constitutional: Negative for chills, fatigue and fever. Musculoskeletal: Negative for arthralgias. Positive for pain (right index finger and right wrist). Skin: Positive for wound (laceration, right index finger). Negative for rash. Allergic/Immunologic: Negative for immunocompromised state. Neurological: Positive for numbness (mild, right index fingertip). Negative for weakness and light-headedness. All other systems reviewed and are [...] ??? SECTION N/A 11/17/2016 Procedure: SECTION; Surgeon: oHlland Thomas MD; Location: [facility] L+D OR; Service: ??? COLPOSCOPY 2011 ??? ENDOMETRIAL ABLATION during one of the laparotomies ??? EXPLORATORY LAPAROTOMY 3x - last in 10/2015, 2010, Gyne surgeon in 2015 states no contraindication to vaginal per patient ??? IUD removal 11/13/2015 laproscopic procedure ??? LAPAROSCOPIC HYSTERECTOMY N/A 12/21/2017 Procedure: ROBOTC TOTAL LAPAROSCOPIC HYSTERECTOMY, BILATERAL SALPINGECTOMY ; Surgeon: Holland Thomas MD; Location: [facility] Main OR; Service: ??? UT LAP,FULGURATE/EXCISE LESIONS Right 03/25/2017 Procedure: LAPAROSCOPY, OVARIAN CYSTECTOMY; Surgeon: Holland Thomas MD; Location: [facility] OR; Service: Gynecology CURRENT MEDICATIONS: [...] incomplete relief. ALLERGIES: Allergies Allergen Reactions ??? [place] ??? Blood-Group Specific Substance Other (See Comments) [...] Last attempt to quit: 03/14/2019 Years since quittin.7 ??? Smokeless tobacco: Never Used Substance and Sexual Activity ??? Alcohol use: No ??? Drug use: No ??? Sexual activity: Yes control/protection: I.U.D., None Lifestyle ??? Physical activity: Days per week: None Minutes per session: None ??? Stress: None Relationships ??? Social connections: Talks on phone: None Gets together: None Attends worship service: None Active member of club or organization: None Attends meetings of clubs or organizations: None Relationship status: None ??? Intimate partner violence: Fear of current or ex partner: None Emotionally abused: None Physically abused: None Forced sexual activity: None Other Topics Concern ??? None Social History Narrative ??? None PHYSICAL EXAM VITALS BP 112/61 (Patient Position: Sitting) Pulse 75 Temp 98.3 ??F (36.8 ??C) (Oral) Resp 18 Ht 5'7 (1.702 m) Wt 172 lb (78 kg) LMP 01/14/2017 (Exact Date) SpO2 100% BMI 26.94 kg/m?? Physical Exam Vitals signs and nursing note reviewed. Constitutional: General: She is not in acute distress. Appearance: She is well-developed. She is not diaphoretic. HENT: Head: Normocephalic. Eyes: Conjunctiva/sclera: Conjunctivae normal. Neck: Musculoskeletal: Normal range of motion. Cardiovascular: Rate and Rhythm: Normal rate. Pulmonary: Effort: Pulmonary effort is normal. No respiratory distress. Abdominal: General: There is no distension. Musculoskeletal: Comments: Ambulatory Skin: General: Skin is warm. Comments: 2 cm laceration to plantar surface of right 2nd digit in between the DIP and PIP joints. Full ROM of digit. <2 second capillary refill distally. Neurological: Mental Status: She is alert. PROCEDURES: PROCEDURE: Digital Block INDICATIONS: Laceration PROCEDURE PROVIDER: Afshan Dolan DO SITE: left index finger (2nd digit) MEDICATION: 2 cc's 2% Lidocaine NOTE: The skin overlying the site for injection was prepped with chlorhexidine. Needle was inserted in a standard three point injection pattern. Each time the area was aspirated and there was no returnof blood. I then injected the medication at the base of the digit. A total of 2ml of the medication was injected. The patient had good response to the procedure COMPLICATIONS: None PROCEDURE: Laceration Repair INDICATIONS: Laceration PROCEDURE PROVIDER: Afshan Dolan DO SITE: Right second digit TYPE/SIZE: A superficial clean 2 cm laceration. FUNCTIONAL ASSESSMENT: Distally/surrounding area sensation, circulation, motor and tendon function are intact. MEDICATION: Lidocaine 2% plain. Injecting 2 mls. PREPARATION: irrigation with Normal Saline DEBRIDEMENT: no debridement and wound explored, no foreign body found CLOSURE: Wound was closed in one layer. Skin closed with 5-0 Ethilon using interrupted sutures Total number of sutures/narendra placed: 3 I, Paramjit Grove, am serving as a scribe to document services personally performed by Dr. Dolan based on my observation and the provider's statements to me. IAfshan, DO attest that Paramjit Grove is acting in a scribe capacity, has observed my performance of the services and has documented them in accordance with my direction. Afshan Dolan DO Emergency Medicine [facility] EMERGENCY DEPARTMENT [address] [facility] [address] Dept: [phone] Loc: [phone] Yakelin Dolan DO 12/03/19 1730 T OFFICER Ashley Ness - 12/03/2019 12:23 PM CST Cleaning out refrigerator and a shelf fell off door and when she went to catch a glass door, it shattered lacerating right index finger. Good cap refill and sensation distally. Bleeding controlled at present. States last tetanus one month ago. GCS 15 T OFFICER documented in this encounter Plan of Treatment Not on filedocumented as of this encounter Visit Diagnoses Diagnosis Laceration of right index finger without foreign body without damage to nail, initial encounter documented in this encounter Additional Health Concerns Assessment Noted Time PHQ-9 Depression Total Score: 19 09/04/2015 7:20 AM CD T documented as of this encounter Care Teams Pulp Grinder Relationship Specialty Start Date End Date No Ref-Primary, Physician PCP - General 07/27/15 04/14/20 documented as of this encounter
--- OUTSIDE RECORDS SUMMARY | 2022-08-31 22:23 | XMS_ITS | Encounter Summary ---
:1990 Author Organization [place] Address [facility] [place] [address] Care Team Providers Name Role Phone No Ref-Primary, Physician Primary Care Provider [phone] Reason for Visit Reason Comments Abdominal Pain Encounter Details Date Type Department Care Team Description 09/08/2019 [facility] Meryl Garrison, Proctoc olitis; [facility] Pelvic pain in female; Emergency Room [address] [facility] Yeast vaginitis [address] [place] [id number] [phone] Social History Tobacco Use Types Packs/Day Years [...] - Inhaled Oxygen Concentration - - Weight 78.8 kg (173 lb 12.8 oz) 09/08/2019 11:27 AM CDT Height - - Body Mass Index 27.22 08/14/2019 12:01 PM CDT documented in this [...] documented as of this encounter ED Notes Meryl Garrison E - 09/08/2019 11:48 AM CDT EMERGENCY DEPARTMENT ENCOUNTER NAME: Keyla Porter AGE: 29 y.o. female DATE OF : 1990 EVALUATION DATE & TIME: 09/08/2019 11:22 AM PCP: Holland Thomas MD ED PROVIDER: Meryl Riddle M.D. Chief Complaint Patient presents with ??? Abdominal Pain ??? Pelvic pain FINAL IMPRESSION: 1. Proctocolitis 2. Pelvic pain in female 3. Yeast vaginitis ED COURSE & MEDICAL DECISION MAKING: ED Course as of Sep 08 1352 Sat Sep 08, 2019 1201 Pt with RLQ pain, pelvic exam chaperoned by CHADWICK Herrera with no vaignal discharge or bleeding, nocervix present, no obvious adnexal masses. Will do pelvic US, UA, labs, CT abdomen in pt with severeRLQ pain with appendix present, IVF and fentanyl for pain/zofran for nausea, will clinically reassess [ED] 1342 Pelvic US and examination WNL wet prep with some yeast present, given diflucan x1. CT abdomen with proctocolitis, with any allergies pt given NSAID IV and abx augmentin with PMD f/u. Patient discharged after being provided with extensive anticipatory guidance and given return precautions, importance of PMD follow-up emphasized. [ED] ED Course User Index [ED] Meryl Riddle MD 11:51 AM I met with the patient and performed my initial exam. 1:51 PM I personally reassessed pt with c/o 10/10 pain and hse notes it isn' actually 10/10, just that the now-complete US was uncofortable for her, now it is over. 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 Pertinent Labs & Imaging studies reviewed. (See chart for details) At the conclusion of the encounter I discussed the results of all of the tests and the disposition. The questions were answered. The patient or family acknowledged understanding and was agreeable with the care plan. MEDICATIONS GIVEN IN THE EMERGENCY: Medications sodium chloride flush 3 mL (NS) (has no administration in time range) naloxone injection 0.2-0.4 mg (NARCAN) (has no administration in time range) Or naloxone injection 0.2-0.4 mg (NARCAN) (has no administration in time range) ketorolac injection 15 mg (TORADOL) (has no administration in time range) fluconazole tablet 150 mg (DIFLUCAN) (has no administration in time range) amoxicillin-clavulanate 875-125 mg per tablet 1 tablet (AUGMENTIN) (has no administration in time range) sodium chloride 0.9% 1,000 mL (0 mL Intravenous Stopped 09/08/19 1336) fentaNYL pf injection 50 mcg (SUBLIMAZE) (50 mcg Intravenous Given 09/08/19 1207) ondansetron injection 4 mg (ZOFRAN) (4 mg Intravenous Given 09/08/19 1210) iohexol 350 mg iodine/mL injection 100 mL (OMNIPAQUE) (100 mL Intravenous Given 09/08/19 1253) NEW PRESCRIPTIONS STARTED AT TODAY'S ER VISIT Current Discharge Medication List START taking these medications Details amoxicillin-clavulanate (AUGMENTIN) 875-125 mg per tablet Take 1 tablet by mouth every 12 (twelve) hours for 7 days. Qty: 14 tablet, Refills: 0 Associated Diagnoses: Proctocolitis; Pelvic pain in female CONTINUE these medications which have NOT CHANGED [...] Porter is a 29 y.o. female with PMHx of anxiety disorder, depression, polysubstance abuse, recurring pelvic issues,and remote hysterectomy who presents to the ED today via walk-in for evaluation of abdominal pain and pelvic pain. Patient presents today with a sudden onset of right lower quadrant abdominal pain and vaginal pain. She notes having sexual intercourse today at 6:00 AM (7.5 hours ago) in which the onset of the pain began. Associated symptoms includes one episode of vomiting, nausea, vaginal discharge, and loose stool this morning. She notes the onset of the pain was a sharp sensation, in which resolved, but 10 minutes later the pain resurfaced and has persisted. The vaginal pain is more internal and notes having apulling sensation behind the belly button. The vaginal discharge is described as a thick white discharge without odor or blood present. Denies dysuria, hematuria, fever, vaginal bleeding, or any other complaints at this time. Secondary to her chief complaint, patient notes having some vaginal bleeding two days ago in which resolved. She has a history of kidney stones, left ovarian cyst, and endometr iosis. Her current symptoms do not feel like previous kidney stones, but her current symptoms do feel similar to when she was diagnosed with an ovarian cyst. Although the symptoms feel similar, she notes today's symptoms are more severe. Denies history of STD's. REVIEW OF SYSTEMS Review of Systems Constitutional: Negative for fever. Gastrointestinal: Positive for abdominal pain, diarrhea, nausea and vomiting. Genitourinary: Positive for pelvic pain, vaginal discharge and vaginal pain. Negative for dysuria, hematuria and vaginal bleeding. All other systems reviewed and are negative. All other systems reviewed and are negative except as noted above in HPI. PAST MEDICAL HISTORY: Past Medical [...] SALPINGECTOMY ; Surgeon: Holland Thomas MD; Location: [facility] OR; Service: ??? KS LAP,FULGURATE/EXCISE LESIONS Right 03/25/2017 Procedure: LAPAROSCOPY, OVARIAN CYSTECTOMY; Surgeon: Holland Thomas MD; Location: [facility] OR; Service: Gynecology CURRENT MEDICATIONS: [...] incomplete relief. ALLERGIES: Allergies Allergen Reactions ??? [place] ??? Blood-Group Specific Substance Other (See Comments) [...] file Gets together: Not on file Attends orthodox service: Not on file Active member of [...] Temp Temp src Pulse Resp SpO2 Weight 09/08/19 1330 114/64 -- -- 66 -- 99 % -- 09/08/19 1245 106/59 -- -- 81 -- 98 % -- 09/08/19 1230 105/59 -- -- 72 -- 97 % -- 09/08/19 1215 107/65 -- -- 65 -- 98 % -- 09/08/19 1129 109/60 -- -- 78 -- 99 % -- 09/08/19 1127 109/60 97.6 ??F (36.4 ??C) Oral 77 20 99 % 173 lb 12.8 oz (78.8 kg) PHYSICAL EXAM GENERAL: Awake, alert. In no acute distress. HEENT: Normocephalic, atraumatic. Pupils equal, round and reactive. Conjunctiva normal. EOMI. NECK: No stridor or apparent deformity. PULMONARY: Symmetrical breath sounds without distress. Lungs clear to auscultation bilaterally without wheezes, rhonchi or rales. CARDIO: Regular rate and rhythm. No significant murmur, rub or gallop. Radial pulses strong and symmetrical. ABDOMINAL: Abdomen soft, non-distended and right lower quadrant tenderness without rebound or gaurding. No CVAT, no palpable hepatosplenomegaly. EXTREMITIES: No lower extremity swelling or edema. NEURO: Alert and oriented to person, place and time. Cranial nerves grossly intact. No focal motor deficit. PSYCH: Normal mood and affect SKIN: No rashes LAB: All pertinent labs reviewed and interpreted. Results for orders placed or performed during the hospital encounter of 09/08/19 Wet Prep, Vaginal Result Value Ref Range Yeast Result Yeast Seen (!) No yeast seen Trichomonas No Trichomonas seen No Trichomonas seen Clue Cells, Wet Prep No Clue cells seen No Clue cells seen Basic Metabolic Panel Result Value Ref Range Sodium 139 136 - 145 mmol/L Potassium 3.9 3.5 - 5.0 mmol/L Chloride 111 (H) 98 - 107 mmol/L CO2 20 (L) 22 - 31 mmol/L Anion Gap, Calculation 8 5 - 18 mmol/L Glucose 91 70 - 125 mg/dL Calcium 9.2 8.5 - 10.5 mg/dL BUN 16 8 - 22 mg/dL Creatinine 0.77 0.60 - 1.10 mg/dL GFR MDRD Af Amer >60 >60 mL/min/1.73m2 GFR MDRD Non Af Amer >60 >60 mL/min/1.73m2 Alcohol, Ethyl, Blood Result Value Ref Range Alcohol, Blood <10 None detected mg/dL Hepatic Profile Result Value Ref Range Bilirubin, Total 0.6 0.0 - 1.0 mg/dL Bilirubin, Direct 0.2 <=0.5 mg/dL Protein, Total 7.8 6.0 - 8.0 g/dL Albumin 4.1 3.5 - 5.0 g/dL Alkaline Phosphatase 42 (L) 45 - 120 U/L AST 20 0 - 40 U/L ALT 22 0 - 45 U/L Lipase Result Value Ref Range Lipase <9 0 - 52 U/L HM1 (CBC with Diff) Result Value Ref Range WBC 6.2 4.0 - 11.0 thou/uL RBC 3.96 3.80 - 5.40 mill/uL Hemoglobin 12.4 12.0 - 16.0 g/dL Hematocrit 36.5 35.0 - 47.0 % MCV 92 80 - 100 fL MCH 31.3 27.0 - 34.0 pg MCHC 34.0 32.0 - 36.0 g/dL RDW 12.7 11.0 - 14.5 % Platelets 248 140 - 440 thou/uL MPV 9.1 8.5 - 12.5 fL Neutrophils % 70 50 - 70 % Lymphocytes % 22 20 - 40 % Monocytes % 7 2 - 10 % Eosinophils % 1 0 - 6 % Basophils % 0 0 - 2 % Neutrophils Absolute 4.3 2.0 - 7.7 thou/uL Lymphocytes Absolute 1.3 0.8 - 4.4 thou/uL Monocytes Absolute 0.4 0.0 - 0.9 thou/uL Eosinophils Absolute 0.1 0.0 - 0.4 thou/uL Basophils Absolute 0.0 0.0 - 0.2 thou/uL RADIOLOGY: Reviewed all pertinent imaging. Please see official radiology report. Us Pelvis With Transvaginal Non Ob Result Date: 09/08/2019 EXAM: US PELVIS WITH TRANSVAGINAL NON OB LOCATION: [facility] DATE/TIME: 09/08/2019 1:22 PM INDICATION: rLQ pain COMPARISON: CT today. TECHNIQUE: Transabdominal scans were performed. Endovaginal ultrasound was performed to better visualize the adnexa. FINDINGS: UTERUS: Absent. RIGHT OVARY: 3.4x 2.2 x 2.1 cm. Multiple follicles with arterial blood flow. LEFT OVARY: 2.9 x 2.2 x 2.2 cm. Multiple follicles with arterial blood flow. Paraovarian 1.8 cm cyst with thin septation. No significant free fluid. 1. Hysterectomy. 2. No ovarian abnormality seen. 3. Left paraovarian 1.8 cm cyst which is not likelysignificant. Ct Abdomen Pelvis Without Oral With Iv Contrast Result Date: 09/08/2019 EXAM: CT ABDOMEN PELVIS WO ORAL W IV CONTRAST LOCATION: [facility] DATE/TIME: 09/08/2019 12:53 PM INDICATION: Right lower quadrant abdominal pain. COMPARISON: 03/10/2018 TECHNIQUE: CT scan of the abdomen and pelvis was performed following injection of IV contrast. Multiplanar reformats were obtained. Dose reduction techniques were used. CONTRAST: 100 mL Omnipaque 350. FINDINGS: LOWER CHEST: Negative. HEPATOBILIARY: Stable benign hepatic cysts. Normal-appearing gallbladder and biliary system. PANCREAS: Normal. SPLEEN: Normal. ADRENAL GLANDS: Normal. KIDNEYS/BLADDER: Normal. BOWEL: Normal appendix. There is some bowel wall thickening involving the sigmoid colon and rectum with mild mucosal enhancement which could represent proctocolitis. LYMPH NODES: No lymphadenopathy. VASCULATURE: Unremarkable. PELVIC ORGANS: Hysterectomy. Normal- appearing bilateral ovaries. MUSCULOSKELETAL: Normal. OTHER: None. 1. Normal appendix. 2. Mild bowel wall thickening and mucosal enhancement of the sigmoid and rectum suggesting proctocolitis. 3. Previous hysterectomy. 4. Benign hepatic cysts. I, Tamara Anton, am serving as a scribe to document services personally performed by Dr. Meryl Riddle based on my observation and the provider's statements to me. IMeryl MD attest that Gonzalez is acting in a scribe capacity, has observed my performance of the services and has documented them in accordance with my direction. Meryl Riddle M.D. Emergency Medicine [facility] EMERGENCY DEPARTMENT [address] [facility] [place] [place] [address] Dept: [phone] Loc: [phone] Meryl Riddle MD 09/08/19 4756 Kait Zhu - 09/08/2019 11:27 AM CDT Patient had spotting 2 days ago. Had hysterectomy 2 years ago. This morning at 0600 when starting tohave sex developed right pelvic and abdominal pain. Pain 08/30. Vomiting at 0900. Kait Zhu documented in this encounter Plan of Treatment Not on filedocumented as of this encounter Procedures Procedure Name Priority Date/Time Associated Comments Diagnosis ROUTINE UA WITH STAT 09/08/2019 1:32 PM Result s for this MICROSCOPIC REFLEX TO CDT proced ure are in CULTURE the results section. US PELVIC Routine 09/08/2019 1:22 PM Results f or this TRANSABDOMINAL AND CDT procedure are in TRANSVAGINAL the results section. CT ABDOMEN PELVIS W Routine 09/08/2019 12:53 Resu lts for this CONTRAST PM CDT procedure are i n the results section. WET PREPARATION STAT 09/08/2019 12:07 Results for this PM CDT procedure are i n the results section. CHLAMYDIA TRACHOMATIS & STAT 09/08/2019 12:07 Results for this NEISSERIA GONORRHOEAE, PM CDT proce dure are in AMPLIFIED DETECTION - the re sults HISTORICAL section. LIPASE STAT 09/08/2019 12:07 Results for this PM CDT procedure are i n the results section. HEPATIC FUNCTION PANEL STAT 09/08/2019 12:07 R esults for this PM CDT procedure are i n the results section. ETHYL ALCOHOL LEVEL STAT 09/08/2019 12:07 Resu lts for this PM CDT procedure are i n the results section. BASIC METABOLIC PANEL STAT 09/08/2019 12:07 Re sults for this PM CDT procedure are i n the results section. CBC WITH PLATELETS AND STAT 09/08/2019 12:07 R esults for this DIFFERENTIAL PM CDT procedure are i n the results section. documented in this encounter Results (ABNORMAL) UA with Microscopic reflex to Culture (09/08/2019 1:32 PM CDT) [facility] Method Time Signature Color Urine Yellow Colorless, 09/08/2019 [facility] Yellow, 1:58 PM CDT [facility] Yellow Appearance Urine Clear Clear 09/08/2019 [facility] 1:58 PM CDT [facility] Glucose Urine Negative Negative 09/08/2019 [facility] 1:58 PM CDT [facility] Bilirubin Urine Negative Negative 09/08/2019 [facility] 1:58 PM CDT [facility] Ketones Urine Negative Negative 09/08/2019 [facility] 1:58 PM CDT [facility] Specific [place] 1.030 1.001 - 09/08/2019 [facility] Urine 1.030 1:58 PM CDT [facility] Blood Urine Negative Negative 09/08/2019 [facility] 1:58 PM CDT [facility] pH Urine 6.0 4.5 - 8.0 09/08/2019 [facility] 1:58 PM CDT [facility] Protein Albumin 30 mg/dL Negative 09/08/2019 [facility] Urine (A) mg/dL 1:58 PM CDT [facility] Urobilinogen <2.0 <2.0 09/08/2019 [facility] Urine E.U./dL E.U./dL, 1:58 PM CDT [facility] 2.0 E.U./dL [facility] Nitrite Urine Negative Negative 09/08/2019 [facility] 1:58 PM CDT [facility] Leukocyte Negative Negative 09/08/2019 [facility] Esterase Urine 1:58 PM CDT [facility] Bacteria Urine None Seen None Seen 09/08/2019 [facility] hpf 1:58 PM CDT [facility] RBC Urine 0-2 None Seen, 09/08/2019 [facility] 0-2 hpf 1:58 PM CDT [facility] WBC Urine 0-5 None Seen, 09/08/2019 [facility] 0-5 hpf 1:58 PM CDT [facility] Squamous 5-10 (A) None Seen, 09/08/2019 [facility] Epithelials 0-5 lpf 1:58 PM CDT [facility] Urine [facility] Mucus Urine Many (A) None Seen 09/08/2019 [facility] lpf 1:58 PM CDT [facility] Specimen Anatomical Collection Method Collection Time Receive d Time (Source) Location / / Volume Laterality Urine specimen Non-blood 09/08/2019 1:32 PM 019 1:32 (specimen) Collection / CDT PM CDT Unknown Narrative [facility] - 09/08/2019 1:58 PM CDT UC not indicated Meryl Garrison MD LAB - URINE ORDERABLES Performing Organization Address City/State/ZIP Code Phon e Number [facility] [place] [address] [facility] [address] [facility] [address] [place] [address] [facility] [address] [address], [facility] US Pelvic Complete with Transvaginal (09/08/2019 1:22 PM CDT) Anatomical Region Laterality Modality Abdomen/Pelvis Other Specimen (Source) Anatomical Location Collection Method / Collectio n Time Received Time / Laterality Volume Impressions 09/08/2019 1:33 PM CDT 1. ??Hysterectomy. 2. ??No ovarian abnormality seen. 3. ??Left paraovarian 1.8 cm cyst which is not likely significant. Narrative 09/08/2019 1:33 PM CDT EXAM: US PELVIS WITH TRANSVAGINAL NON OB LOCATION: [facility] DATE/TIME: 09/08/2019 1:22 PM INDICATION: rLQ pain COMPARISON: CT today. TECHNIQUE: Transabdominal scans were per formed. Endovaginal ultrasound was performed to better visualize the adnexa. FINDINGS: UTERUS: Absent. RIGHT OVARY: 3.4 x 2.2 x 2.1 cm. Multipl e follicles with arterial blood flow. LEFT OVARY: 2.9 x 2.2 x 2.2 cm. Multiple follicles with arterial blood flow. Paraovarian 1.8 cm cyst with thin septation. No significant free fluid. Procedure Note Sandoval Cyr MD - 04/29/2021Fo rmatting of this note might be different from the original. EXAM: US PELVIS WITH TRANSVAGINAL NON OB LOCATION: [facility] DATE/TIME: 09/08/2019 1:22 PM INDICATION: rLQ pain COMPARISON: CT today. TECHNIQUE: Transabdominal scans were per formed. Endovaginal ultrasound was performed to better visualize the adnexa. FINDINGS: UTERUS: Absent. RIGHT OVARY: 3.4 x 2.2 x 2.1 cm. Multipl e follicles with arterial blood flow. LEFT OVARY: 2.9 x 2.2 x 2.2 cm. Multiple follicles with arterial blood flow. Paraovarian 1.8 cm cyst with thin septation. No significant free fluid. IMPRESSION: 1. Hysterectomy. 2. No ovarian abnormality seen. 3. Left paraovarian 1.8 cm cyst which is not likely significant. Meryl Garrison MD IMG US ORDERABLES CT Abdomen Pelvis w Contrast (09/08/2019 12:53 PM CDT) Anatomical Region Laterality Modality Abdomen/Pelvis, SUBRAD CT BODY, UMP CT ABDOMEN PELVIS, Computed Tomography RAD CT Specimen (Source) Anatomical Location Collection Method / Collectio n Time Received Time / Laterality Volume Impressions 09/08/2019 1:09 PM CDT 1. ??Normal appendix. 2. ??Mild bowel wall thickening and muco paramjit enhancement of the sigmoid and rectum suggesting proctocolitis. 3. ??Previous hysterectomy. 4. ??Benign hepatic cysts. Narrative 09/08/2019 1:09 PM CDT EXAM: CT ABDOMEN PELVIS WO ORAL W IV CONTRAST LOCATION: [facility] DATE/TIME: 09/08/2019 12:53 PM INDICATION: Right lower quadrant abdomin al pain. COMPARISON: 03/10/2018 TECHNIQUE: CT scan of the abdomen and pe lvis was performed following injection of IV contrast. Multiplanar reformats were obtained. Dose reduction techniques were used. CONTRAST: 100 mL Omnipaque 350. FINDINGS: LOWER CHEST: Negative. HEPATOBILIARY: Stable benign hepatic cys ts. Normal-appearing gallbladder and biliary system. PANCREAS: Normal. SPLEEN: Normal. ADRENAL GLANDS: Normal. KIDNEYS/BLADDER: Normal. BOWEL: Normal appendix. There is some oh wel wall thickening involving the sigmoid colon and rectum with mild mucosal enhancement which could represent proctocolitis. LYMPH NODES: No lymphadenopathy. VASCULATURE: Unremarkable. PELVIC ORGANS: Hysterectomy. Normal-appe aring bilateral ovaries. MUSCULOSKELETAL: Normal. OTHER: None. Procedure Note Peter Williamson MD - 04/29/2021Forma tting of this note might be different from the original. EXAM: CT ABDOMEN PELVIS WO ORAL W IV CON TRAST LOCATION: [facility] DATE/TIME: 09/08/2019 12:53 PM INDICATION: Right lower quadrant abdomin al pain. COMPARISON: 03/10/2018 TECHNIQUE: CT scan of the abdomen and pe lvis was performed following injection of IV contrast. Multiplanar reformats were obtained. Dose reduction techniques were used. CONTRAST: 100 mL Omnipaque 350. FINDINGS: LOWER CHEST: Negative. HEPATOBILIARY: Stable benign hepatic cys ts. Normal-appearing gallbladder and biliary system. PANCREAS: Normal. SPLEEN: Normal. ADRENAL GLANDS: Normal. KIDNEYS/BLADDER: Normal. BOWEL: Normal appendix. There is some oh wel wall thickening involving the sigmoid colon and rectum with mild mucosal enhancement which could represent proctocolitis. LYMPH NODES: No lymphadenopathy. VASCULATURE: Unremarkable. PELVIC ORGANS: Hysterectomy. Normal-appe aring bilateral ovaries. MUSCULOSKELETAL: Normal. OTHER: None. IMPRESSION: 1. Normal appendix. 2. Mild bowel wall thickening and mucosa l enhancement of the sigmoid and rectum suggesting proctocolitis. 3. Previous hysterectomy. 4. Benign hepatic cysts. Meryl Garrison MD IMG CT ORDERABLES (ABNORMAL) Wet prep (09/08/2019 12:07 PM CDT) [facility] Method Time Signature Yeast Yeast Seen (A) No yeast seen 09/08/2019 [facility] 12:28 [facility] Trichomonas No Trichomonas No Trichomonas 09/08/2019 [facility] seen seen 12:28 PM [place] CDT [facility] Clue Cells No Clue cells No Clue cells 09/08/2019 [facility] seen seen 12:28 PM [place] CDT [facility] Specimen Anatomical Collection Method Collection Time Receive d Time (Source) Location / / Volume Laterality Specimen from 09/08/2019 12:07 09/08/2019 genital system PM CDT 12:17 PM CDT (specimen) Meryl Garrison MD LAB - MICRO GENERAL ORDERABL ES Performing Organization Address City/State/ZIP Code Phon e Number [facility] [place] [address] [place] [address] Dr[address] [place], [place] [address] LABORATORY Chlamydia Trachomatis & Neisseria Gonorrhoeae, Amplified Detection - Historical (09/08/2019 12:07 PM CDT) [facility] Method Time Signature Chlamydia Negative Negative 09/10/2019 [facility] Trachomatis 11:43 AM CDT [facility] Neisseria Negative Negative 09/10/2019 [facility] gonorrhoeae 11:43 AM CDT [facility] Specimen Anatomical Collection Method Collection Time Receive d Time (Source) Location / / Volume Laterality Body fluid 09/08/2019 12:07 09/08/2019 2:38 specimen PM CDT PM CDT (specimen) Meryl Garrison MD LAB - MICRO GENERAL ORDERABL ES Performing Organization Address [facility]/ZIP Code Phon e Number [facility] [place] [address] [address] [facility] Lipase (09/08/2019 12:07 PM CDT) P athologist Signature Lipase <9 0 - 52 U/L 09/08/2019 [facility] 12:37 PM CDT [facility] Specimen Anatomical Collection Method Collection Time Receive d Time (Source) Location / / Volume Laterality Blood specimen VAD(CVC, PICC) / 09/08/2019 12:07 09/08 (specimen) Unknown PM CDT 12:17 PM CDT Meryl Garrison MD LAB - BLOOD ORDERABLES Performing Organization Address City/[facility]/ZIP [facility] Phon e Number [facility] [place] [address] Lab [facility] Franky Mcgovern [address] [place], [place] [address] LABORATORY (ABNORMAL) Hepatic panel (09/08/2019 12:07 PM CDT) Analysis Performed At Patho logist Time Signature Bilirubin Total 0.6 0.0 - 1.0 09/08/2019 [facility] mg/dL 12:35 PM CDT [facility] Bilirubin Direct 0.2 <=0.5 09/08/2019 [facility] mg/dL 12:35 PM CDT [facility] Protein Total 7.8 6.0 - 8.0 09/08/2019 [facility] g/dL 12:35 PM CDT [facility] Albumin 4.1 3.5 - 5.0 09/08/2019 [facility] g/dL 12:35 PM CDT [facility] Alkaline 42 (L) 45 - 120 09/08/2019 [facility] Phosphatase U/L 12:35 PM CDT [facility] AST 20 0 - 40 U/L 09/08/2019 [facility] 12:35 PM CDT [facility] ALT 22 0 - 45 U/L 09/08/2019 [facility] 12:35 PM CDT [facility] Specimen Anatomical Collection Method Collection Time Receive d Time (Source) Location / / Volume Laterality Blood specimen VAD(CVC, PICC) / 09/08/2019 12:07 09/08 (specimen) Unknown PM CDT 12:17 PM CDT Meryl Garrison MD LAB - BLOOD ORDERABLES Performing Organization Address [facility] Phon e Number [facility] [place] [address] Lab Sylvia Felder [facility] [place] [address] LABORATORY Alcohol ethyl (09/08/2019 12:07 PM CDT) Analysis Performed At Patho logist Time Signature Alcohol, Blood <10 None detected 09/08/2019 HEALTH mg/dL 12:37 PM CDT [facility] Comment: None Detected Specimen Anatomical Collection Method Collection Time Receive d Time (Source) Location / / Volume Laterality Blood specimen VAD(CVC, PICC) / 09/08/2019 12:07 09/08 (specimen) Unknown PM CDT 12:17 PM CDT Meryl Garrison MD LAB - BLOOD ORDERABLES Performing Organization Address City/[facility]/ZIP [facility] Phon e Number [facility] [place] [address] Lab Sylvia Felder [facility] [place] [address] LAB[facility]ATORY (ABNORMAL) Basic metabolic panel (09/08/2019 12:07 PM CDT) Analysis Performed At Patho logist Time Signature Sodium 139 136 - 145 09/08/2019 HEALTH mmol/L 12:35 PM CDT [facility] Potassium 3.9 3.5 - 5.0 09/08/2019 HEALTH mmol/L 12:35 PM CDT [facility] Chloride 111 (H) 98 - 107 09/08/2019 HEALTH mmol/L 12:35 PM CDT [facility] Carbon Dioxide 20 (L) 22 - 31 09/08/2019 HEALTH (CO2) mmol/L 12:35 PM CDT [facility] Anion Gap 8 5 - 18 09/08/2019 HEALTH mmol/L 12:35 PM CDT [facility] Glucose 91 70 - 125 09/08/2019 HEALTH mg/dL 12:35 PM CDT [facility] Calcium 9.2 8.5 - 10.5 09/08/2019 HEALTH mg/dL 12:35 PM CDT [facility] Urea Nitrogen 16 8 - 22 09/08/2019 HEALTH mg/dL 12:35 PM CDT [facility] Creatinine 0.77 0.60 - 09/08/2019 HEALTH 1.10 mg/dL 12:35 PM CDT [facility] GFR Estimate If >60 >60 09/08/2019 HEALTH Black mL/min/1.7 12:35 PM CDT [address] LABORATORY GFR Estimate >60 >60 09/08/2019 HEALTH mL/min/1.7 12:35 PM [address] LABORATORY Specimen Anatomical Collection Method Collection Time Receive d Time (Source) Location / / Volume Laterality Blood specimen VAD(CVC, PICC) / 09/08/2019 12:07 09/08 (specimen) Unknown PM CDT 12:17 PM CDT Narrative [facility] - 09/08/2019 12:35 PM CDT Fasting Glucose reference range is 70-99 mg/dL per [place] [employer] (ADA) [employer]. Meryl Garrison MD LAB - BLOOD ORDERABLES Performing Organization Address City/State/ZIP Code Phon e Number [facility] [place] [address] [place] [facility] Meghan Felder [place] [address] [place] [address] [facility] [place] [address], [facility] CBC WITH PLATELETS AND DIFFERENTIAL (09/08/2019 12:07 PM CDT) P athologist Signature WBC 6.2 4.0 - 11.0 09/08/2019 HEALTH thou/uL 12:23 PM CDT [facility] RBC Count 3.96 3.80 - 09/08/2019 HEALTH 5.40 12:23 PM CDT [facility] Hemoglobin 12.4 12.0 - 09/08/2019 HEALTH 16.0 g/dL 12:23 PM CDT [facility] Hematocrit 36.5 35.0 - 09/08/2019 HEALTH 47.0 % 12:23 PM CDT [facility] MCV 92 80 - 100 09/08/2019 HEALTH fL 12:23 PM CDT [facility] MCH 31.3 27.0 - 09/08/2019 HEALTH 34.0 pg 12:23 PM CDT [facility] MCHC 34.0 32.0 - 09/08/2019 HEALTH 36.0 g/dL 12:23 PM CDT [facility] RDW 12.7 11.0 - 09/08/2019 HEALTH 14.5 % 12:23 PM CDT [facility] Platelet Count 248 140 - 440 09/08/2019 HEALTH [facility]/uL 12:23 PM CDT [facility] Mean Platelet 9.1 8.5 - 12.5 09/08/2019 HEALTH Volume fL 12:23 PM CDT [facility] % Neutrophils 70 50 - 70 % 09/08/2019 HEALTH 12:23 PM CDT [facility] % Lymphocytes 22 20 - 40 % 09/08/2019 HEALTH 12:23 PM CDT [facility] % Monocytes 7 2 - 10 % 09/08/2019 HEALTH 12:23 PM CDT [facility] % Eosinophils 1 0 - 6 % 09/08/2019 HEALTH 12:23 PM CDT [facility] % Basophils 0 0 - 2 % 09/08/2019 M HE[facility] 12:23 PM CDT [facility] Absolute 4.3 2.0 - 7.7 09/08/2019 M [facility] Neutrophils thou/uL 12:23 PM CDT [facility] Absolute 1.3 0.8 - 4.4 09/08/2019 M [facility] Lymphocytes thou/uL 12:23 PM CDT [facility] Absolute 0.4 0.0 - 0.9 09/08/2019 M [facility] Monocytes thou/uL 12:23 PM CDT [facility] Eosinophils 0.1 0.0 - 0.4 09/08/2019 M [facility] Absolute thou/uL 12:23 PM CDT [facility] Absolute 0.0 0.0 - 0.2 09/08/2019 M [facility] Basophils thou/uL 12:23 PM CDT [facility] Specimen Anatomical Collection Method Collection Time Receive d Time (Source) Location / / Volume Laterality Blood specimen VAD(CVC, PICC) / 09/08/2019 12:07 09/08 (specimen) Unknown PM CDT 12:17 PM CDT Meryl Garrison MD LAB - BLOOD ORDERABLES Performing Organization Address City/State/ZIP Code Phon e Number [facility] [place] [address] [facility] [place] [address] [facility] [place], [place] [address] LABORATORY documented in this encounter Visit Diagnoses Diagnosis Proctocolitis Ulcerative (chronic) proctitis Pelvic pain in female Unspecified symptom associated with fema le genital organs Yeast vaginitis Candidiasis of vulva and vagina documented in this encounter Additional Health Concerns Assessment Noted Time PHQ-9 Depression Total Score: 19 09/04/2015 7:20 AM CD T documented as of this encounter Care Teams Ingredient Mixer Relationship Specialty Start Date End Date No Ref-Primary, Physician PCP - General 07/27/15 04/14/20 documented as of this encounter
--- OUTSIDE RECORDS SUMMARY | 2022-08-31 22:23 | XMS_ITS | Encounter Summary ---
:1990 Author Organization [place] Address [address] [place] [id number] Care Team Providers Name Role Phone No Ref-Primary, Physician Primary Care Provider Holland Thomas MD Primary Care Provider [phone] Reason for Visit Reason Comments Other Lacerations; right index fin stacey, sutures to be removed Encounter Details Date Type Department Care Team Description 12/13/2019 Office Visit - [facility] Amarilys Friedman Visit for suture [facility] ADDICTION THERAPIST removal [address] [facility] [address] [place], [place] INTERNAL MED [address] [place], [place] [phone] [facility] Social History Tobacco Use Types Packs/Day Years [...] Sign Reading Time Taken Comments Blood Pressure 128/72 12/13/2019 9:28 AM LUMBER MATERIAL HANDLER Pulse 66 12/13/2019 9:28 AM LUMBER MATERIAL HANDLER Temperature - - Respiratory Rate - - Oxygen Saturation 96% 12/13/2019 9:28 AM LUMBER MATERIAL HANDLER Inhaled Oxygen Concentration - - Weight 81.2 kg (179 lb) 12/13/2019 9:28 AM LUMBER MATERIAL HANDLER Height 172.7 cm (5' 8) 12/13/2019 9:28 AM LUMBER MATERIAL HANDLER Body Mass Index 27.22 12/13/2019 9:28 AM LUMBER MATERIAL HANDLER documented in this encounter Progress Notes Amarilys Friedman, ADDICTION THERAPIST - 12/13/2019 9:05 AM CST Internal Medicine Office Visit [facility] Specialty [facility] Patient Name: Keyla Porter Patient Age: 29 y.o. Date of : 1990 Date of Visit: 12/13/2019 Reason for Office Visit: Chief Complaint Patient presents with ??? Lacerations right index finger, sutures to be removed Assessment / Plan / Medical Decision Makin. Visit for suture removal Patient will keep the area clean and dry discouraged from soaking the area. Recommend continue monitoring for loss of sensation if persistent would recommend referral to hand specialty. She is requesting to establish care with a primary will be scheduled with Darya Leonard PA-C at patient's request. No orders of the defined types were placed in this encounter. Followup: Return in about 2 weeks (around 12/27/2019). earlier if needed. Health Maintenance Review Health Maintenance Topic Date Due ??? MEDICARE ANNUAL WELLNESS VISIT 2006 ??? TD 18+ HE 2006 ??? ADVANCE CARE PLANNING 2006 ??? PAP SMEAR 2009 ??? INFLUENZA VACCINE RULE BASED (1) 06/21/2019 ??? HIV SCREENING Completed ??? TDAP ADULT ONE TIME DOSE Completed I am having Keyla Porter maintain her ferrous sulfate, gabapentin, nabumetone, methylPREDNISolone, metoclopramide, SUMAtriptan, and ibuprofen. HPI: Keyla Porter is a 29 y.o. year old who presents to the office today with chronic conditions including History of hypotension, generalized anxiety disorder, history of depression, history of laparoscopy, history of anemia. Patient was seen in the ED on 12/03/2019 after sustaining a laceration to the right index finger. Patient reported that she received a laceration after a glass jar fell onto her hand as her refrigerator shelf collapsed. She was cleaning the refrigerator at the time with a shelf collapse she rinse the laceration with cold water. In the ED the laceration was cleansed and sutured with #3 Ethilon sutures. Patient reports that she has continued to have this bandaged andis in need of suture removal today. She does report some loss of sensation in the tip of her finger. Current Scheduled Meds: Outpatient Encounter Medications as of 12/13/2019 Medication Sig Dispense Refill ??? ferrous sulfate 325 (65 FE) MG tablet Take 1 tablet by mouth daily with breakfast. ??? ibuprofen (ADVIL,MOTRIN) 600 MG tablet Take 1 tablet (600 mg total) by mouth every 6 (six) hoursas needed for pain. 30 tablet 0 ??? SUMAtriptan (IMITREX) 50 MG tablet Take 1 tablet (50 mg total) by mouth once as needed for migraine. May repeat after 2 hours X 1 if incomplete relief. 10 tablet 0 ??? gabapentin (NEURONTIN) 100 MG capsule 1 cap at bedtime x 3 days. Then may take 2 caps at bedtimex 3 days, then may take 3 caps at bedtime 60 capsule 2 ??? methylPREDNISolone (MEDROL, ANNA,) 4 mg tablet follow package directions 21 tablet 0 ??? metoclopramide (REGLAN) 10 MG tablet Take 1 tablet (10 mg total) by mouth every 6 (six) hours asneeded for nausea. 30 tablet 0 ??? nabumetone (RELAFEN) 500 MG tablet Take 1-2 tablets (500-1,000 mg total) by mouth 2 (two) times a day as needed for pain. 60 tablet 0 No facility-administered encounter medications on file as of 12/13/2019. Past Medical History: Diagnosis Date ??? Abnormal [...] infection ??? Varicella twice as a child Past Surgical History: Procedure Laterality Date ??? SECTION N/A 11/17/2016 Procedure: SECTION; Surgeon: Holland Thomas MD; Location: [facility] L+D OR; Service: ??? COLPOSCOPY 2011 ??? ENDOMETRIAL ABLATION during one of the laparotomies ??? EXPLORATORY LAPAROTOMY 3x - last in 10/2015, 2010, Gyne surgeon in 2014 states no contraindication to vaginal per patient ??? IUD removal 11/13/2015 laproscopic procedure ??? LAPAROSCOPIC HYSTERECTOMY N/A 12/21/2017 Procedure: ROBOTC TOTAL LAPAROSCOPIC HYSTERECTOMY, BILATERAL SALPINGECTOMY ; Surgeon: Holland Thomas MD; Location: [facility] Main OR; Service: ??? ME LAP,FULGURATE/EXCISE LESIONS Right 03/25/2017 Procedure: LAPAROSCOPY, OVARIAN CYSTECTOMY; Surgeon: Holland Thomas MD; Location: [facility] OR; Service: Gynecology Social History Tobacco Use ??? Smoking status: Former Smoker Last attempt to quit: 03/14/2019 Years since quittin.7 ??? Smokeless tobacco: Never Used Substance Use Topics ??? Alcohol use: No ??? Drug use: No Family History Problem Relation Age of Onset [...] Grandfather ??? Stroke Paternal Grandfather Social History Social History Narrative ??? Not on file Objective / Physical Examination: Vitals: 12/13/19 0928 BP: 128/72 Patient Site: Left Arm Patient Position: Sitting Cuff Size: Adult Regular Pulse: 66 SpO2: 96% Weight: 179 lb (81.2 kg) Height: 5' 8 (1.727 m) Wt Readings from Last 3 Encounters: 12/13/19 179 lb (81.2 kg) 12/03/19 172 lb (78 kg) 09/08/19 173 lb 12.8 oz (78.8 kg) Body mass index is 27.22 kg/m??. General Appearance: Alert and oriented, cooperative, affect appropriate, speech clear, in no apparent distress Head: Normocephalic, atraumatic Eyes: Conjunctivae clear and sclerae non-icteric Throat: Lips and mucosa moist. Lungs:Normal inspiratory and expiratory effort Right index finger: Capillary refill less than 2 seconds she has a well-healed laceration. Noted on the palmar aspect of her index finger right hand utilization of a scissors and a pickups sutures removed without difficulty the area is bandaged. Neuro: Alert and oriented, follows commands appropriately. Amarilys Friedman, [facility] MATERIAL HANDLER documented in this encounter Plan of Treatment Not on filedocumented as of this encounter Visit Diagnoses Diagnosis Visit for suture removal Encounter for removal of sutures documented in this encounter Additional Health Concerns Assessment Noted Time PHQ-9 Depression Total Score: 19 09/04/2015 7:20 AM CD T documented as of this encounter Care Teams Meter Repair Shop Supervisor Relationship Specialty Start Date End Date No Ref-Primary, Physician PCP - General 07/27/15 04/14/20 Holland Thomas MD PCP - General coach cleaner 04/15/[address] [address] documented as of this encounter
--- OUTSIDE RECORDS SUMMARY | 2022-08-31 22:24 | XMS_ITS | Encounter Summary ---
:1990 Author Organization [place] Address Formerly [facility] [place] [address] Care Team Providers Name Role Phone No Ref-Primary, Physician Primary Care Provider [phone] Reason for Visit Reason Comments Migraine Encounter Details Date Type Department Care Team Description 08/09/2019 Emergency [facility]. Jaky, Mary Lu, Migraine with aura and [facility] with status Emergency Department [address] [facility] migrainosus, not [address] [place] [id number] [place] [address] (Wo rk) [id number] [phone] Social History Tobacco Use Types Packs/Day Years [...] - - Weight 74.8 kg (165 lb) 08/08/2019 11:40 PM CDT Height 170.2 cm (5' 7) 08/08/2019 11:40 PM CDT Body Mass Index 25.84 08/08/2019 11:40 PM CDT documented in this encounter Medications [...] documented as of this encounter ED Notes Mary Starkey E - 08/09/2019 1:35 AM CDT EMERGENCY DEPARTMENT ENCOUNTER NAME: Keyla Porter AGE: 29 y.o. female DATE OF : 1990 EVALUATION DATE & TIME: 08/09/2019 12:33 AM PCP: Holland Thomas MD ED PROVIDER: Mary Starkey M.D. Chief Complaint Patient presents with ??? Migraine FINAL IMPRESSION: 1. Migraine with aura and with status migrainosus, not intractable ED COURSE & MEDICAL DECISION MAKING: Pertinent Labs & Imaging studies reviewed. (See chart for details) 29 y.o. female presents to the Emergency Department for evaluation of migraine ZELAYA. 12:38 AM I met with the patient to introduce myself, gather additional history, perform my initial exam, and discuss the plan for care. This patient is a 29-year-old female who presents emergency department with migraine headache and emesis. The observed emesis was actually spitting up without true vomiting. Vital signs are within normal limits. There are no red flags such as fever, meningismus, or thunderclap headache to warrant imaging tonight. Because she has some associated abdominal pain with the emesis, I will get basic labs for screening purposes. If these show anything but evidence for viral gastroenteritis, will proceed with a CT of the belly at that time. She will be given fluids, treatments for her migraine headache and antiemetics. Following the fluids and treatments for the migraine headache, she was feeling significantly improved. Labs are unremarkable. She requested to be discharged home because her child was upset and needed her attention. I did recommend that she follow-up closely with her primary care doctor. Prescriptionswill be given to her for sumatriptan and Reglan. At the conclusion of the encounter I discussed the results of all of the tests and the disposition. The questions were answered. The patient or family acknowledged understanding and was agreeable with the care plan. Because we did not thoroughly complete her work-up, we did discuss warning signs and in dications to return to the emergency department. She understands these warning signs and will returnwith any concerns. MEDICATIONS GIVEN IN THE EMERGENCY: Medications SUMAtriptan injection 6 mg (IMITREX) (has no administration in time range) sodium chloride 0.9% 1,000 mL (1,000 mL Intravenous New Bag 08/09/19134) metoclopramide injection 10 mg (REGLAN) (10 mg Intravenous Given 08/09/19132) ketorolac injection 15 mg (TORADOL) (15 mg Intravenous Given 08/09/19131) NEW PRESCRIPTIONS STARTED AT TODAY'S ER VISIT [...] Associated Diagnoses: Lumbar radicular pain; Sleep difficulties methylPREDNISolone (MEDROL, ANNA,) 4 mg tablet follow package directions Qty: 21 tablet, Refills: 0 Associated Diagnoses: Lumbar radicular pain nabumetone (RELAFEN) 500 MG tablet Take 1-2 tablets (500-1,000 mg total) by mouth 2 (two) times a day as needed for pain. Qty: 60 tablet, Refills: 0 Associated Diagnoses: Lumbar spine pain; Lumbar radicular pain oxyCODONE (ROXICODONE) 5 MG immediate release tablet Take 1 tablet (5 mg total) by mouth every 4 (four) hours as needed for pain. Qty: 8 tablet, Refills: 0 Associated Diagnoses: Acute right-sided low back pain with right-sided sciatica oxyCODONE-acetaminophen (PERCOCET/ENDOCET) 5-325 mg per tablet Take 0.5-1 tablets by mouth every 6 (six) hours as needed for pain. Qty: 16 tablet, Refills: 0 Associated Diagnoses: Lumbar radicular pain; Lumbar disc herniation HPI Patient information was obtained from: Patient Use of Planer Off Bearer: N/A Keyla Porter is a 29 y.o. female with a pertinent history of migraines who presents to this ED by private car for evaluation of a migraine. The patient reports that over the past two days she has developed a left-sided headache, and this morning when she woke up she had associated nausea, reduced appetite, fever (101.7 this morning), and inability to tolerate PO. She says that these accessory symptoms are atypical of her usual migraines. She denies having diarrhea, hematemesis, or bloody stools. No sick contacts. No neck pain or stiffness. REVIEW OF SYSTEMS Review of Systems Constitutional: Positive for appetite change (reduced) and fever. Gastrointestinal: Positive for nausea. Negative for blood in stool and diarrhea. Neurological: Positive for headaches. All other systems [...] Procedure: SECTION; Surgeon: Holland Thomas MD; Location: [facility] [place]; Service: ??? COLPOSCOPY 2011 ??? ENDOMETRIAL ABLATION during one of the laparotomies ??? EXPLORATORY LAPAROTOMY 3x - last in 10/2015, 2010, Gyne surgeon in 2015 states no contraindication to vaginal per patient ??? IUD removal 11/13/2015 laproscopic procedure ??? LAPAROSCOPIC HYSTERECTOMY N/A 12/21/2017 Procedure: ROBOTC TOTAL LAPAROSCOPIC HYSTERECTOMY, BILATERAL SALPINGECTOMY ; Surgeon: Holland Thomas MD; Location: [facility] [place]; Service: ??? TX LAP,FULGURATE/EXCISE LESIONS Right 03/25/2017 Procedure: LAPAROSCOPY, OVARIAN CYSTECTOMY; Surgeon: Holland Thomas MD; Location: [facility] OR; Service: Gynecology CURRENT MEDICATIONS: No [...] 4 mg tablet follow package directions ??? nabumetone (RELAFEN) 500 MG tablet Take 1-2 tablets (500-1,000 mg total) by mouth 2 (two) times a day as needed for pain. ??? oxyCODONE (ROXICODONE) 5 MG immediate release tablet Take 1 tablet (5 mg total) by mouth every 4(four) hours as needed for pain. ??? oxyCODONE-acetaminophen (PERCOCET/ENDOCET) 5-325 mg per tablet Take 0.5-1 tablets by mouth every6 (six) hours as needed for pain. ALLERGIES: Allergies Allergen Reactions ??? Palmer ??? Blood-Group Specific Substance Other (See Comments) [...] on phone: None Gets together: None Attends restorationist service: None Active member of club or [...] Temp src Pulse Resp SpO2 Height Weight 08/08/19 2340 119/78 98.4 ??F (36.9 ??C) Oral 81 20 97 % 5' 7 (1.702 m) 165 lb (74.8 kg) PHYSICAL EXAM Constitutional: Well developed, Well nourished, NAD, GCS 15 (insert GCS calculator) HENT: Normocephalic, Atraumatic, Bilateral external ears normal, Oropharynx normal, mucous membranesmoist, Nose normal. Neck- Normal range of motion, No tenderness, Supple, No stridor. No meningismus. Eyes: PERRL, EOMI, Conjunctiva normal, No discharge. Pupils 4mm, reactive. Respiratory: Normal breath sounds, No respiratory distress, No wheezing, Speaks full sentences easily. No cough. Cardiovascular: Normal heart rate, Regular rhythm, No murmurs, No rubs, No gallops. Chest wall nontender. GI: No excessive obesity. Bowel sounds normal, Soft, No tenderness, No masses, No flank tenderness. No rebound or guarding. Musculoskeletal: 2+ DP pulses. No edema. No cyanosis, No clubbing. Good range of motion in all majorjoints. No tenderness to palpation or major deformities noted. No tenderness of the CTLS spine. Warmand well perfused. Integument: Warm, Dry, No erythema, No rash. No petechiae. Neurologic: Alert & oriented x 3, Normal motor function, Normal sensory function, No focal deficits noted. Normal gait. Psychiatric: Affect normal, Judgment normal, Mood normal. Cooperative. LAB: All pertinent labs reviewed and interpreted. Results for orders placed or performed during the hospital encounter of 08/09/19 Comprehensive Metabolic Panel Result Value Ref Range Sodium 138 136 - 145 mmol/L Potassium 3.4 (L) 3.5 - 5.0 mmol/L Chloride 105 98 - 107 mmol/L CO2 23 22 - 31 mmol/L Anion Gap, Calculation 10 5 - 18 mmol/L Glucose 85 70 - 125 mg/dL BUN 15 8 - 22 mg/dL Creatinine 0.75 0.60 - 1.10 mg/dL GFR MDRD Af Amer >60 >60 mL/min/1.73m2 GFR MDRD Non Af Amer >60 >60 mL/min/1.73m2 Bilirubin, Total 0.5 0.0 - 1.0 mg/dL Calcium 9.2 8.5 - 10.5 mg/dL Protein, Total 8.2 (H) 6.0 - 8.0 g/dL Albumin 4.0 3.5 - 5.0 g/dL Alkaline Phosphatase 47 45 - 120 U/L AST 26 0 - 40 U/L ALT 28 0 - 45 U/L HM1 (CBC with Diff) Result Value Ref Range WBC 7.0 4.0 - 11.0 thou/uL RBC 4.15 3.80 - 5.40 mill/uL Hemoglobin 12.8 12.0 - 16.0 g/dL Hematocrit 38.2 35.0 - 47.0 % MCV 92 80 - 100 fL MCH 30.8 27.0 - 34.0 pg MCHC 33.5 32.0 - 36.0 g/dL RDW 12.9 11.0 - 14.5 % Platelets 237 140 - 440 thou/uL MPV 9.3 8.5 - 12.5 fL Neutrophils % 62 50 - 70 % Lymphocytes % 26 20 - 40 % Monocytes % 10 2 - 10 % Eosinophils % 1 0 - 6 % Basophils % 0 0 - 2 % Neutrophils Absolute 4.4 2.0 - 7.7 thou/uL Lymphocytes Absolute 1.9 0.8 - 4.4 thou/uL Monocytes Absolute 0.7 0.0 - 0.9 thou/uL Eosinophils Absolute 0.1 0.0 - 0.4 thou/uL Basophils Absolute 0.0 0.0 - 0.2 thou/uL I, Manish Valiente, am serving as a scribe to document services personally performed by Dr. Noyola based on my observation and the provider's statements to me. I, Mary Starkey MD attest that Manish Valiente is acting in a scribe capacity, has observed my performance of the services and has documented them in accordance with my direction. Mary Starkey M.D. Emergency Medicine [facility] EMERGENCY DEPARTMENT [address] [facility] [address] Dept: [phone] Loc: [phone] Mary Starkey MD 08/09/19 0220 Vivienne Warner - 08/08/2019 11:38 PM CDT Pt states she developed left sided headache x 2 days had some vomiting earlier today, also c/o righteye pressure. documented in this encounter Plan of Treatment Not on filedocumented as of this encounter Procedures Procedure Name Priority Date/Time Associated Comments Diagnosis CBC WITH PLATELETS AND STAT 08/09/2019 1:40 AM Results for this DIFFERENTIAL CDT procedure are i n the results section. COMPREHENSIVE STAT 08/09/2019 1:40 AM Results for this METABOLIC PANEL CDT procedure ar e in the results section. documented in this encounter Results CBC WITH PLATELETS AND DIFFERENTIAL (08/09/2019 1:40 AM CDT) P athologist Signature WBC 7.0 4.0 - 11.0 08/09/2019 [facility] thou/uL 1:43 AM CDT [email or web address] RBC Count 4.15 3.80 - 08/09/2019 [facility] 5.40 1:43 AM CDT [facility] Hemoglobin 12.8 12.0 - 08/09/2019 [facility] 16.0 g/dL 1:43 AM CDT [email or web address] Hematocrit 38.2 35.0 - 08/09/2019 [facility] 47.0 % 1:43 AM CDT [facility] MCV 92 80 - 100 08/09/2019 [facility] fL 1:43 AM CDT [employer] [facility] MCH 30.8 27.0 - 08/09/2019 [facility] 34.0 pg 1:43 AM CDT [facility] MCHC 33.5 32.0 - 08/09/2019 [facility] 36.0 g/dL 1:43 AM CDT [employer] [facility] RDW 12.9 11.0 - 08/09/2019 [facility] 14.5 % 1:43 AM CDT [email or web address] Platelet Count 237 140 - 440 08/09/2019 [facility] thou/uL 1:43 AM CDT [facility] Mean Platelet 9.3 8.5 - 12.5 08/09/2019 [facility] Volume fL 1:43 AM CDT [facility] % Neutrophils 62 50 - 70 % 08/09/2019 [facility] 1:43 AM CDT [facility] % Lymphocytes 26 20 - 40 % 08/09/2019 [facility] 1:43 AM CDT [facility] % Monocytes 10 2 - 10 % 08/09/2019 [facility] 1:43 AM CDT [facility] % Eosinophils 1 0 - 6 % 08/09/2019 [facility] 1:43 AM CDT [facility] % Basophils 0 0 - 2 % 08/09/2019 [facility] 1:43 AM CDT [facility] Absolute 4.4 2.0 - 7.7 08/09/2019 [facility] Neutrophils thou/uL 1:43 AM CDT [facility] Absolute 1.9 0.8 - 4.4 08/09/2019 [facility] Lymphocytes thou/uL 1:43 AM CDT [facility] Absolute 0.7 0.0 - 0.9 08/09/2019 [facility] Monocytes thou/uL 1:43 AM CDT [facility] Eosinophils 0.1 0.0 - 0.4 08/09/2019 [facility] Absolute thou/uL 1:43 AM CDT [facility] Absolute 0.0 0.0 - 0.2 08/09/2019 [facility] Basophils thou/uL 1:43 AM CDT [facility] Specimen Anatomical Collection Method Collection Time Receive d Time (Source) Location / / Volume Laterality Blood specimen VAD(CVC, PICC) / 08/09/2019 1:40 AM 1:40 (specimen) Unknown CDT AM CDT Mary Starkey MD LAB - BLOOD ORDERABLES Performing Organization Address City/State/ZIP Code Phon e Number [facility] [place] [address] [employer] [address] [place] [address] LABORATORY (ABNORMAL) Comprehensive metabolic panel (08/09/2019 1:40 AM CDT) [facility] Method Time Signature Sodium 138 136 - 145 08/09/2019 [facility] mmol/L 2:02 AM CDT [facility] Potassium 3.4 (L) 3.5 - 5.0 08/09/2019 [facility] mmol/L 2:02 AM [facility] Chloride 105 98 - 107 08/09/2019 [facility] mmol/L 2:02 AM [facility] Carbon Dioxide 23 22 - 31 08/09/2019 [facility] (CO2) mmol/L 2:02 AM [facility] Anion Gap 10 5 - 18 08/09/2019 [facility] mmol/L 2:02 AM [facility] Glucose 85 70 - 125 08/09/2019 [facility] mg/dL 2:02 AM [facility] Urea Nitrogen 15 8 - 22 08/09/2019 [facility] mg/dL 2:02 AM [facility] Creatinine 0.75 0.60 - 08/09/2019 [facility] 1.10 mg/dL 2:02 AM [facility] GFR Estimate If >60 >60 08/09/2019 [facility] Black mL/min/1.7 2:02 AM [facility] 3m2 [facility] GFR Estimate >60 >60 08/09/2019 [facility] mL/min/1.7 2:02 AM [facility] 3m2 [facility] Bilirubin Total 0.5 0.0 - 1.0 08/09/2019 [facility] mg/dL 2:02 AM [facility] Calcium 9.2 8.5 - 10.5 08/09/2019 [facility] mg/dL 2:02 AM [facility] Protein Total 8.2 (H) 6.0 - 8.0 08/09/2019 [facility] g/dL 2:02 AM [facility] Albumin 4.0 3.5 - 5.0 08/09/2019 [facility] g/dL 2:02 AM [facility] Alkaline 47 45 - 120 08/09/2019 [facility] Phosphatase U/L 2:02 AM [facility] AST 26 0 - 40 U/L 08/09/2019 [facility] 2:02 AM CDT [facility] ALT 28 0 - 45 U/L 08/09/2019 [facility] 2:02 AM CDT [facility] Specimen Anatomical Collection Method Collection Time Receive d Time (Source) Location / / Volume Laterality Blood specimen VAD(CVC, PICC) / 08/09/2019 1:40 AM 1:40 (specimen) Unknown CDT AM CDT Narrative [facility] - 08/09/2019 2:02 AM CDT Fasting Glucose reference range is 70-99 mg/dL per [place] [employer] (ADA) [employer]. Mary Starkey MD LAB - BLOOD ORDERABLES Performing Organization Address City/State/ZIP Code Phon e Number [facility] [place] [address] Lab [address] [facility] [address] documented in this encounter Visit Diagnoses Diagnosis Migraine with aura and with status migra inosus, not intractable Migraine with aura, with intractable lisa constantin, so stated, with status migrainosus documented in this encounter Additional Health Concerns Assessment Noted Time PHQ-9 Depression Total Score: 19 09/04/2015 7:20 AM CD T documented as of this encounter 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
--- OUTSIDE RECORDS SUMMARY | 2022-08-31 22:24 | XMS_ITS | Encounter Summary ---
:1990 Author Organization [place] Address [address] [place] [id number] Care Team Providers Name Role Phone No Ref-Primary, Physician Primary Care Provider [phone] Encounter Details Date Type Department Care Team Description 03/08/2019 Hospital Encounter [facility], [place], Lumb ar radicular pain; [facility] PA-C Lumbar disc herniation [address] [place] [phone] [place] [address] [place] [id number] Social History Tobacco Use Types Packs/Day Years [...] with anxiety documented as of this encounter Plan of Treatment Not on filedocumented as of this encounter Procedures Procedure Name Priority Date/Time Associated Diagnosis Comme nts MR LUMBAR SPINE W/O Routine 03/08/2019 4:52 PM Lumbar radicula r Results for this CONTRAST CDT pain procedure are in Lumbar disc the results herniation section. documented in this encounter Results MR Lumbar Spine w/o Contrast (03/08/2019 4:52 PM CDT) Anatomical Region Laterality Modality Spine, SUBRAD MR NEURO, UMP MR SPINE, RAD MR Other Specimen (Source) Anatomical Location Collection Method / Collectio n Time Received Time / Laterality Volume Impressions 03/09/2019 1:59 PM CDT CONCLUSION: 1. ??Small disc protrusions with annular fissures at L3/L4 through L5/S1 as described. 2. ??Mild right subarticular zone stenos is at L5/S1 abutting the descending right S1 nerve roots. 3. ??Mild to moderate right foraminal st enosis at L5/S1. 4. ??No high-grade foraminal or spinal c anal stenosis. Narrative 03/09/2019 1:59 PM CDT EXAM: MR LUMBAR SPINE WO CONTRAST LOCATION: [facility] DATE/TIME: 03/08/2019 4:52 PM INDICATION: Lumbosacral radicular pain s uspect S1 impingement. COMPARISON: None. TECHNIQUE: Without IV contrast FINDINGS: Nomenclature is based on 5 lumbar type v ertebral bodies. Vertebral body heights are maintained. Alignment is within normal limits. No concerning marrow replacing lesions. The conus tip is identified at L1. No extraspinal abnormality. The visualized portions of the bony pelvis are normal f or age. T12-L1 through L2/L3: Normal disc height and signal. No herniation. No facet arthropathy. No spinal canal stenosis. No right neural foraminal stenosis. No left neural foraminal stenosis. L3-L4: Posterior annular bulge with shal low superimposed central disc protrusion and small annular fissure. No facet arthropathy. This results in mild encroachment on the bilateral subarticular zones and minimal spinal canal stenosis. No significant foraminal narrowing. L4-L5: Prominent central annular fissure with a small associated central disc protrusion. No facet arthropathy. There is mild effacement of the bilateral subarticular zones without significant mass effect. No significant foraminal stenosis. L5-S1: Shallow central disc protrusion w ith small annular fissure. No facet arthropathy. There is mild narrowing of the right subarticular zone, abutting the descending right S1 nerve roots. No spinal canal stenosis. Mild to moderate right neural foraminal stenosis. Mild left neural for aminal stenosis. Procedure Note Panfilo Jenkins MD - 04/29/2021 EXAM: MR LUMBAR SPINE WO CONTRAST LOCATION: [facility] DATE/TIME: 03/08/2019 4:52 PM INDICATION: Lumbosacral radicular pain s uspect S1 impingement. COMPARISON: None. TECHNIQUE: Without IV contrast FINDINGS: Nomenclature is based on 5 lumbar type v ertebral bodies. Vertebral body heights are maintained. Alignment is within normal limits. No concerning marrow replacing lesions. The conus tip is identified at L1. No extraspinal abnormality. The visualized portions of the bony pelvis are normal f or age. T12-L1 through L2/L3: Normal disc height and signal. No herniation. No facet arthropathy. No spinal canal stenosis. No right neural foraminal stenosis. No left neural foraminal stenosis. L3-L4: Posterior annular bulge with shal low superimposed central disc protrusion and small annular fissure. No facet arthropathy. This results in mild encroachment on the bilateral subarticular zones and minimal spinal canal stenosis. No significant foraminal narrowing. L4-L5: Prominent central annular fissure with a small associated central disc protrusion. No facet arthropathy. There is mild effacement of the bilateral subarticular zones without significant mass effect. No significant foraminal stenosis. L5-S1: Shallow central disc protrusion w ith small annular fissure. No facet arthropathy. There is mild narrowing of the right subarticular zone, abutting the descending right S1 nerve roots. No spinal canal stenosis. Mild to moderate right neural foraminal stenosis. Mild left neural for aminal stenosis. IMPRESSION: CONCLUSION: 1. Small disc protrusions with annular f issures at L3/L4 through L5/S1 as described. 2. Mild right subarticular zone stenosis at L5/S1 abutting the descending right S1 nerve roots. 3. Mild to moderate right foraminal sten osis at L5/S1. 4. No high-grade foraminal or spinal can al stenosis. 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
--- OUTSIDE RECORDS SUMMARY | 2022-08-31 22:24 | XMS_ITS | Encounter Summary ---
:1990 Author Organization [place] Address [facility] [place] [address] Care Team Providers Name Role Phone No Ref-Primary, Physician Primary Care Provider Holland Thomas MD Primary Care Provider Encounter Details Date Type Department Care Team Description 04/17/2019 [facility] Short Lumbar radicular pain; Services [address] [facility] [address] [id number] Social History Tobacco Use Types Packs/Day Years Used Date Smoking Tobacco: Every Day Cigarettes 0.1 Smokeless Tobacco: Never Comments: smoking 10cig/day- down to 1-2 with Alcohol Use Standard Drinks/Week Comments Yes 0 (1 standard drink = 0.6 oz pure alcoho l) 3 times a month Sex Assigned at Date Recorded Not on file documented as of this encounter Progress Notes Deja Celestin PT - 04/17/2019 10:00 AM CDT [facility] Daily Progress Note Patient Name: Keyla Porter Date of evaluation: 03/07/2019 Today's Date: 04/17/2019 Visit Number: [id number] (per order) Referral Diagnosis: Lumbar spine pain [M54.5] ??- Primary Lumbar radicular pain [M54.16] Myofascial pain [M79.18] MED[facility] Referring provider: Dr. Chery Visit Diagnosis: ICD-10-CM 1. Lumbar spine pain M54.5 2. Lumbar radicular pain M54.16 3. Myofascial pain M79.18 Assessment: Feeling much better. Still some pain with standing too long (15 minutes). Much better ROM and daily function. 1 time per day will have a spasm. But happy with how much shorter, less intense and how infrequentthey are. Left thigh is no longer numb. Right knee has occasional numbness at times. At this time, patient is going to follow up with referring provider. She no longer hast PT scheduled. We discussed ways to work on core strengthening and to keep up with home stretches/nerve glides forthe next few months. 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 She is also going to get back to the gym, we talked about how to do this gradually as well. Patient comfortable with progression at this time. PT will keep her chart open the next 1-2 months. She can schedule another follow up if she feels she needs to, otherwise will DC Chart after2 months. Patient good with this plan. Goals: Pt. will demonstrate/verbalize independence in self-management of condition: MET Pt. will be independent with home exercise program: MET Pt will: demostrate full lumbar ROM without pain or radicular sx: MET Pt will: report standing to prepare meals without using a stool or increased pain: BETTER, but has to take a few breaks. Pt will: sleep through the night without pain: IMPROVED, but still an issue with laying too long, gabapentin helps. Plan / Patient Instructions: Keep chart open x 1-2 months. Subjective: Pain: 1-2/10 Still having spasms, mild, sleeping a bit better. Working on exercises still. Functional limitations: Sleep - wakes 1-2 a night Standing/walking 10 minutes Preparing meals Bend/lift Carrying laundry/groceries Donning/doffing socks/shoes Objective: Prior to injury, patient had gone to the gym: running, swimming, weights. Patient is up to 30-45 minutes of walking. Discussed getting back to the gym lightly. Standing upright is non painful. Exercises: see flowsheet for date performed Exercise #1: prone press ups Comment #1: supine SLR sliders Exercise #2: prone quad stretch - changed to supine quad stretching/nerve glide with leg off side ofmat instead. Comment #2: supine LTR Exercise #3: cat/cow Comment #3: child's pose 3 way Exercise #4: supine bridges Comment #4: TA set with leg raise Exercise #5: sidelying hip abduction Comment #5: prone supermans Exercise #6: sit<>Stand repeats Treatment Today TREATMENT MINUTES COMMENTS Evaluation Self-care/ Home management Manual therapy Neuromuscular Re-education Therapeutic Activity Therapeutic Exercises 25 See above Gait training Modality Total 25 Blank areas are intentional and mean the treatment did not include these items. Deja Celestin, DPT 04/17/2019 documented in this encounter Plan of Treatment Not on filedocumented as of this encounter Visit Diagnoses Diagnosis Lumbar spine pain Lumbago Lumbar radicular pain Thoracic or lumbosacral neuritis or radi culitis, unspecified Myofascial pain Mylagia and myositis, unspecified documented in this encounter Additional Health Concerns Assessment Noted Time PHQ-9 Depression Total Score: 19 09/04/2015 7:20 AM CD T documented as of this encounter Care Teams Immigration Coordinator Relationship Specialty Start Date End Date No Ref-Primary, Physician PCP - General 07/27/15 04/14/20 Holland Thomas MD PCP - General size mixer 04/15/[address] [id number] documented as of this encounter
--- OUTSIDE RECORDS SUMMARY | 2022-08-31 22:24 | XMS_ITS | Encounter Summary ---
:1990 Author Organization [place] Address [facility] [place] [address] Care Team Providers Name Role Phone No Ref-Primary, Physician Primary Care Provider [phone] Reason for Visit Reason Comments Back Pain Encounter Details Date Type Department Care Team Description 02/27/2019 Hospital Encounter [facility], Irasema Schulz right-sided DEPARTMENT DO low back pain with [address] EMERGENCY CARE right-sided [place], [place] [facility] sciatica [phone] [phone] [place], [place] [id number] Social History Tobacco Use Types Packs/Day Years [...] - Inhaled Oxygen Concentration - - Weight 72.6 kg (160 lb) 02/27/2019 4:37 PM CDT Height - - Body Mass Index 25.06 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 female DATE OF : 1990 EVALUATION DATE & TIME: 02/27/2019 4:42 PM PCP: Holland Thomas MD ED PROVIDER: Afshan Dolan DO Chief Complaint Patient presents with ??? Back Pain FINAL IMPRESSION: No diagnosis found. ED COURSE & MEDICAL DECISION MAKIN:48 PM Met with patient for initial interview and exam. Discussed initial plan for care for their stay in the emergency department. 6:45 PM met with patient to see how her pain was doing and updated her on lab results. The patient was interviewed and examined. History in the chart was reviewed. 28 y.o. female presents to the Emergency Department for evaluation of low back pain. Symptoms started a couple days ago, no traumatic event. Pain does radiate into her right anterior thigh. On exam, she also has right lower quadrant pain. She does note some decreased urination, constipation. She is afebrile. Denies any fever or chills. She has no signs or symptoms of cauda equina. She has full range of motion of her lower extremities and full strength. Equal reflexes. Given her right lower quadrant pain, will also evaluate for infectious source. She has a history of a hysterectomy. She was given Toradol for pain. Labs including CMP are unremarkable. UA without evidence of infection. Repeat abdominal exam is unremarkable. At this time, I do not feel that CT of the abdomen is necessary. Most of herpain remains in her low back. Likely cause of her symptoms, lumbar strain with radicular symptoms. Will discharge with a Medrol Dosepak, few tabs of pain medications, referral to spine center. Discussed other symptomatic care including scheduled Tylenol, ice, heat. Encouraged to return if any acute worsening of symptoms, fever, chills. Did discuss importance of stool softeners given she is very constipated. If her abdominal pain gets worse she should return immediately. At the conclusion of the encounter I discussed the results of all of the tests and the disposition with the patient. All questions were answered. The patient acknowledged understanding and was involvedin the decision making regarding the overall care plan. I discussed with patient the utility, limitations and findings of the exam/interventions/studies done during this visit as well as the list of differential diagnosis and symptoms to monitor/return to ER for. Additional verbal discharge instructions were provided. MEDICATIONS GIVEN IN THE EMERGENCY: Medications - No data to display NEW PRESCRIPTIONS STARTED AT TODAY'S ER VISIT Current Discharge Medication List CONTINUE these medications which have NOT CHANGED Details ferrous sulfate 325 (65 FE) MG tablet Take 1 tablet by mouth daily with breakfast. ondansetron (ZOFRAN ODT) 4 MG disintegrating tablet Take 1 tablet (4 mg total) by mouth every 8 (eight) hours as needed for nausea. Qty: 8 tablet, Refills: 0 ondansetron (ZOFRAN) 4 MG tablet Take 1 tablet (4 mg total) by mouth every 8 (eight) hours as neededfor nausea. Qty: 12 tablet, Refills: 0 oxyCODONE-acetaminophen (PERCOCET/ENDOCET) 5-325 mg per tablet Take 1 tablet by mouth every 6 (six) hours as needed for pain. 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 female with a history of Kidney stones, UTIs, CAMERON, depression, PID, endometriosis, tubal ligation, Laparoscopic hysterectomy, endometrial ablation, and emergency IUD removal surgery after perforation of the uterus wall and section who presents to the ED with hermother for evaluation of back pain. Patient reports that she has been experiencing lower back pain with intermittent right thigh numbness/tingling with muscle spasms of her back, difficulty standing up straight without pain, feeling as if her legs will give out when ambulating, increased urgency of urination without increased frequency of urination, fever, chills, abdominal distention, emesis with pain, increased urgency of bowel movements without being able to have a bowel movement. She states that she has tried taking ibuprofen, taking epsom salt baths, applying icy-hot and tiger balm, and light massage without relief of pain. Denies any falls, trauma, heavy lifting, dysuria nausea, taking anything for pain today, or numbnessof pelvic area. REVIEW OF SYSTEMS Review of Systems Constitutional: Positive for chills and fever. Negative for fatigue. HENT: Negative for sore throat. Respiratory: Negative for cough and shortness of breath. Cardiovascular: Negative for chest pain. Gastrointestinal: Positive for abdominal distention, abdominal pain, constipation and vomiting. Negative for diarrhea and nausea. Genitourinary: Positive for decreased urine volume and urgency. Negative for difficulty urinating, dysuria, hematuria and vaginal pain. Musculoskeletal: Positive for back pain ( radiates down right thigh). Negative for arthralgias. Skin: Negative for rash. Neurological: Positive for numbness ( in right thigh intermittently with muscle spasm). Negative forlight-headedness and headaches. PAST MEDICAL HISTORY: Past Medical History: Diagnosis [...] Procedure: SECTION; Surgeon: Holland Thomas MD; Location: [facility] [place]; Service: ??? COLPOSCOPY 2011 ??? ENDOMETRIAL ABLATION during one of the laparotomies ??? EXPLORATORY LAPAROTOMY 3x - last in 10/2015, 2010, Gyne surgeon in 2015 states no contraindication to vaginal per patient ??? IUD removal 11/13/2015 laproscopic procedure ??? LAPAROSCOPIC HYSTERECTOMY N/A 12/21/2017 Procedure: ROBOTC TOTAL LAPAROSCOPIC HYSTERECTOMY, BILATERAL SALPINGECTOMY ; Surgeon: Holland Thomas MD; Location: [facility] OR; Service: ??? UT LAP,FULGURATE/EXCISE LESIONS Right 03/25/2017 Procedure: LAPAROSCOPY, OVARIAN CYSTECTOMY; Surgeon: Holland Thomas MD; Location: [facility]; Service: Gynecology CURRENT MEDICATIONS: No current facility-administered medications on file prior to encounter. Current Outpatient Medications on File Prior to Encounter Medication Sig ??? ferrous sulfate 325 (65 FE) MG tablet Take 1 tablet by mouth daily with breakfast. ??? ondansetron (ZOFRAN ODT) 4 MG disintegrating tablet Take 1 tablet (4 mg total) by mouth every 8 (eight) hours as needed for nausea. ??? ondansetron (ZOFRAN) 4 MG tablet Take 1 tablet (4 mg total) by mouth every 8 (eight) hours as needed for nausea. ??? oxyCODONE-acetaminophen (PERCOCET/ENDOCET) 5-325 mg per tablet Take 1 tablet by mouth every 6 (six) hours as needed for pain. ALLERGIES: Allergies Allergen Reactions ??? Blood-Group Specific [...] on file Tobacco Use ??? Smoking status: Current Every Day Smoker ??? Smokeless tobacco: Never Used ??? Tobacco comment: 1-2 cigs daily Substance and Sexual Activity ??? Alcohol use: No ??? Drug use: No ??? Sexual activity: Yes control/protection: IUD, None Lifestyle ??? Physical activity: Days per week: Not on file Minutes per session: Not on file ??? Stress: Not on file Relationships ??? Social connections: Talks on phone: Not on file Gets together: Not on file Attends shinto service: Not on file Active member of [...] Social History Narrative ??? Not on file PHYSICAL EXAM VITALS BP 123/78 Pulse 83 Temp 98.7 ??F (37.1 ??C) (Oral) Resp 20 Wt 160 lb (72.6 kg) LMP 01/14/2017 (Exact Date) SpO2 99% BMI 25.06 kg/m?? Physical Exam Constitutional: She appears well-developed. No distress. HENT: Head: Normocephalic and atraumatic. Mouth/Throat: Oropharynx is clear and moist. Eyes: Conjunctivae and EOM are normal. Neck: Normal range of motion. Cardiovascular: Normal rate, regular rhythm and normal heart sounds. No murmur heard. Pulmonary/Chest: Effort normal and breath sounds normal. No respiratory distress. Abdominal: Soft. She exhibits no distension. There is tenderness in the right lower quadrant. There is no rigidity, no rebound, no guarding and no CVA tenderness. Musculoskeletal: Normal range of motion. She exhibits no edema. Lower lumbar tenderness, right SI joint tenderness, Neurological: She is alert. She has normal strength. Reflex Scores: Patellar reflexes are 1+ on the right side and 1+ on the left side. 5/5 strength of bilateral lower extremities Skin: Skin is warm. She is not diaphoretic. No erythema. Psychiatric: She has a normal mood and affect. Nursing note and vitals reviewed. LAB: All pertinent labs reviewed and interpreted. Results for orders placed or performed during the hospital encounter of 02/27/19 Comprehensive Metabolic Panel Result Value Ref Range Sodium 139 136 - 145 mmol/L Potassium 3.8 3.5 - 5.0 mmol/L Chloride 109 (H) 98 - 107 mmol/L CO2 22 22 - 31 mmol/L Anion Gap, Calculation 8 5 - 18 mmol/L Glucose 85 70 - 125 mg/dL BUN 18 8 - 22 mg/dL Creatinine 0.81 0.60 - 1.10 mg/dL GFR MDRD Af Amer >60 >60 mL/min/1.73m2 GFR MDRD Non Af Amer >60 >60 mL/min/1.73m2 Bilirubin, Total 0.3 0.0 - 1.0 mg/dL Calcium 9.5 8.5 - 10.5 mg/dL Protein, Total 7.9 6.0 - 8.0 g/dL Albumin 3.9 3.5 - 5.0 g/dL Alkaline Phosphatase 38 (L) 45 - 120 U/L AST 20 0 - 40 U/L ALT 24 0 - 45 U/L Urinalysis-UC if Indicated Result Value Ref Range Color, UA Yellow Colorless, Yellow, Straw, Light Yellow Clarity, UA Clear Clear Glucose, UA Negative Negative Bilirubin, UA Negative Negative Ketones, UA Negative Negative Specific [place], UA 1.020 1.001 - 1.030 Blood, UA Negative Negative pH, UA 6.5 4.5 - 8.0 Protein, UA Negative Negative mg/dL Urobilinogen, UA <2.0 E.U./dL <2.0 E.U./dL, 2.0 E.U./dL Nitrite, UA Negative Negative Leukocytes, UA Negative Negative HM1 (CBC with Diff) Result Value Ref Range WBC 4.4 4.0 - 11.0 thou/uL RBC 4.02 3.80 - 5.40 mill/uL Hemoglobin 12.3 12.0 - 16.0 g/dL Hematocrit 37.2 35.0 - 47.0 % MCV 93 80 - 100 fL MCH 30.6 27.0 - 34.0 pg MCHC 33.1 32.0 - 36.0 g/dL RDW 13.2 11.0 - 14.5 % Platelets 252 140 - 440 thou/uL MPV 9.3 8.5 - 12.5 fL Neutrophils % 54 50 - 70 % Lymphocytes % 33 20 - 40 % Monocytes % 11 (H) 2 - 10 % Eosinophils % 1 0 - 6 % Basophils % 0 0 - 2 % Neutrophils Absolute 2.4 2.0 - 7.7 thou/uL Lymphocytes Absolute 1.5 0.8 - 4.4 thou/uL Monocytes Absolute 0.5 0.0 - 0.9 thou/uL Eosinophils Absolute 0.1 0.0 - 0.4 thou/uL Basophils Absolute 0.0 0.0 - 0.2 thou/uL I, Sofía Friedman, am serving as a scribe to document services personally performed by Dr. Dolan based on my observation and the provider's statements to me. I, Afshan Dolan DO attest that Sofía Friedman is acting in a scribe capacity, has observed my performance of the services and has documented them in accordance with my direction. Afshan Dolan DO Emergency Medicine [facility] EMERGENCY DEPARTMENT [address] [place] [id number] Dept: [phone] Loc: [phone] Yakelin Dolan DO 02/27/19 [address] - 02/27/2019 4:39 PM CDT Pt c/o nontraumatic low back pain x 3 days radiating into RLE. Pt states she has been having bowel retention and feeling pressure like she has to urinate a lot but it's just a trickle. Pt taking ibuprofen without relief, has tried alternating ice/heat and epsom bath without relief. documented in this encounter Plan of Treatment Not on filedocumented as of this encounter Procedures Procedure Name Priority Date/Time Associated Comments Diagnosis ROUTINE UA WITH STAT 02/27/2019 5:22 PM Result s for this MICROSCOPIC REFLEX TO CDT proced ure are in CULTURE the results section. CBC WITH PLATELETS AND STAT 02/27/2019 5:04 PM Results for this DIFFERENTIAL CDT procedure are i n the results section. COMPREHENSIVE STAT 02/27/2019 5:04 PM Results for this METABOLIC PANEL CDT procedure ar e in the results section. documented in this encounter Results UA with Microscopic reflex to Culture (02/27/2019 5:22 PM CDT) [facility] Method Time Signature Color Urine Yellow Colorless, 02/27/[address] [facility] Yellow, 5:31 PM [facility]T [facility] Yellow Appearance Urine Clear Clear 02/27/2019 [facility] 5:31 PM CDT [facility] Glucose Urine Negative Negative 02/27/2019 [facility] 5:31 PM CDT [facility] Bilirubin Urine Negative Negative 02/27/[address] [facility] 5:31 PM CDT [facility] Ketones Urine Negative Negative 02/27/[address] [facility] 5:31 PM CDT [facility] Specific [place] 1.020 1.001 - 02/27/[address] [facility] Urine 1.030 5:31 PM CDT [facility] Blood Urine Negative Negative 02/27/2019 [facility] 5:31 PM CDT [facility] pH Urine 6.5 4.5 - 8.0 02/27/2019 [facility] 5:31 PM CDT [facility] Protein Albumin Negative Negative 02/27/[address] [facility] Urine mg/dL 5:31 PM CDT [facility] Urobilinogen <2.0 <2.0 02/27/2019 [facility] Urine E.U./dL E.U./dL, 5:31 PM CDT [facility] 2.0 E.U./dL [facility] Nitrite Urine Negative Negative 02/27/[address] [facility] 5:31 PM CDT [facility] Leukocyte Negative Negative 02/27/[address] [facility] Esterase Urine 5:31 PM CDT [facility] Specimen Anatomical Collection Method Collection Time Receive d Time (Source) Location / / Volume Laterality Urine specimen Non-blood 02/27/2019 5:22 PM 019 5:24 (specimen) Collection / CDT PM CDT Unknown Narrative [facility] - 02/27/2019 5:31 PM CDT Microscopic not indicated UC not indicated Yakelin Rowley DO LAB - URINE ORDERABLES Performing Organization Address City/State/ZIP Code Phon e Number [place] [address] LABORATORY [facility] [address] [place] [id number], [facility] (ABNORMAL) CBC WITH PLATELETS AND DIFFERENTIAL (02/27/2019 5:04 PM CDT) Analysis Performed At Patho logist Time Signature WBC 4.4 4.0 - 11.0 02/27/[address] [facility] thou/uL 5:15 PM CDT [facility] RBC Count 4.02 3.80 - 02/27/[address] [facility] 5.40 5:15 PM CDT [facility]/uL [facility] Hemoglobin 12.3 12.0 - 02/27/[address] [facility] 16.0 g/dL 5:15 PM CDT [facility] Hematocrit 37.2 35.0 - 02/27/[address] [facility] 47.0 % 5:15 PM CDT [facility] MCV 93 80 - 100 02/27/[address] [facility] fL 5:15 PM CDT [facility] MCH 30.6 27.0 - 02/27/[address] [facility] 34.0 pg 5:15 PM CDT [facility] MCHC 33.1 32.0 - 02/27/2019 [facility] 36.0 g/dL 5:15 PM CDT [facility] LAB[facility]AT[facility] RDW 13.2 11.0 - 02/27/2019 [facility] 14.5 % 5:15 PM CDT [facility] ANITAGuided TherapeuticsS LAB[facility] Platelet Count 252 140 - 440 02/27/2019 [facility] thou/uL 5:15 PM CDT [facility] LAB[facility] Mean Platelet 9.3 8.5 - 12.5 02/27/[address] [facility] Volume fL 5:15 PM CDT [facility] % Neutrophils 54 50 - 70 % 02/27/2019 [facility] 5:15 PM CDT [facility] % Lymphocytes 33 20 - 40 % 02/27/2019 [facility] 5:15 PM CDT [facility] % Monocytes 11 (H) 2 - 10 % 02/27/2019 [facility] 5:15 PM CDT [facility] % Eosinophils 1 0 - 6 % 02/27/2019 [facility] 5:15 PM CDT [facility] LAB[facility]AT[facility] % Basophils 0 0 - 2 % 02/27/2019 [facility] 5:15 PM CDT [facility] Absolute 2.4 2.0 - 7.7 02/27/[address] [facility] Neutrophils thou/uL 5:15 PM CDT [facility] DigitalDiane getuppS LABORATORY Absolute 1.5 0.8 - 4.4 02/27/[address] [facility] Lymphocytes thou/uL 5:15 PM CDT [facility] LABORAT[facility] Absolute 0.5 0.0 - 0.9 02/27/[address] [facility] Monocytes thou/uL 5:15 PM CDT [facility] LABORATORY Eosinophils 0.1 0.0 - 0.4 02/27/2019 [facility] Absolute thou/uL 5:15 PM CDT [facility] LABORATORY Absolute 0.0 0.0 - 0.2 02/27/2019 [facility] Basophils thou/uL 5:15 PM CDT [facility] LABORATORY Specimen Anatomical Collection Method Collection Time Receive d Time (Source) Location / / Volume Laterality Blood specimen VAD(CVC, PICC) / 02/27/2019 5:04 PM 07/2019 5:10 (specimen) Unknown CDT PM CDT Yakelin Rowley DO LAB - BLOOD ORDERABLES Performing Organization Address City/State/ZIP Code Phon e Number [place] [address] [address] [facility] LAB[facility]ORY (ABNORMAL) Comprehensive metabolic panel (02/27/2019 5:04 PM CDT) [facility] Method Time Signature Sodium 139 136 - 145 02/27/[address] [facility] mmol/L 5:26 PM CDT [facility] Potassium 3.8 3.5 - 5.0 02/27/[address] [facility] mmol/L 5:26 PM T [facility] Chloride 109 (H) 98 - 107 02/27/[address] [facility] mmol/L 5:26 PM T [facility] Carbon Dioxide 22 22 - 31 02/27/[address] [facility] (CO2) mmol/L 5:26 PM T [facility] Anion Gap 8 5 - 18 02/27/[address] [facility] mmol/L 5:26 PM [facility] Glucose 85 70 - 125 02/27/2019 [facility] mg/dL 5:26 PM T [facility] Urea Nitrogen 18 8 - 22 02/27/[address] [facility] mg/dL 5:26 PM T [facility] Creatinine 0.81 0.60 - 02/27/2019 [facility] 1.10 mg/dL 5:26 PM CDT [facility] GFR Estimate If >60 >60 02/27/2019 [facility] Black mL/min/1.7 5:[address] LABORATORY GFR Estimate >60 >60 02/27/2019 [facility] mL/min/1.7 5:26 PM CDT [facility] Bilirubin Total 0.3 0.0 - 1.0 02/27/[address] [facility] mg/dL 5:26 PM CDT [facility] Calcium 9.5 8.5 - 10.5 02/27/[address] [facility] mg/dL 5:26 PM CDT [facility] Protein Total 7.9 6.0 - 8.0 02/27/[address] [facility] g/dL 5:26 PM CDT [facility] Albumin 3.9 3.5 - 5.0 02/27/[address] [facility] g/dL 5:26 PM CDT [facility] Alkaline 38 (L) 45 - 120 02/27/[address] [facility] Phosphatase U/L 5:26 PM CDT [facility] AST 20 0 - 40 U/L 02/27/[address] [facility] 5:26 PM CDT [facility] ALT 24 0 - 45 U/L 02/27/[address] [facility] 5:26 PM CDT [facility] Specimen Anatomical Collection Method Collection Time Receive d Time (Source) Location / / Volume Laterality Blood specimen VAD(CVC, PICC) / 02/27/2019 5:04 PM 07/2019 5:10 (specimen) Unknown CDT PM CDT Narrative [facility] - 02/27/2019 5:26 PM CDT Fasting Glucose reference range is 70-99 mg/dL per [place] [employer] (ADA) [employer]. Yakelin Rowley DO LAB - BLOOD ORDERABLES Performing Organization Address City/State/ZIP Code Phon e Number [place] [address] [id number] [place] [address] LABORATORY [facility] [address] [place] [id number], [facility] documented in this encounter Visit Diagnoses Diagnosis Acute right-sided low back pain with rig ht-sided sciatica documented in this encounter Additional Health Concerns Assessment Noted Time PHQ-9 Depression Total Score: 19 09/04/2015 7:20 AM CD T documented as of this encounter 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
--- OUTSIDE RECORDS SUMMARY | 2022-08-31 22:24 | XMS_ITS | Encounter Summary ---
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 04/26/2018 [facility] mL/min/1.7 9:[address] Comment: Non GFR Calc GFR Estimate If 86 >60 mL/min/1.7m2 04/26/2018 9:06 A [facility] Comment: GFR Calc Calcium 8.8 8.5 - 10.1 mg/dL 04/26/2018 9:06 AM [facility] Bilirubin Total 0.6 0.2 - 1.3 mg/dL 04/26/2018 9:06 AM [facility] Albumin 3.9 3.4 - 5.0 g/dL 04/26/2018 9:06 AM [facility] Protein Total 8.5 6.8 - 8.8 g/dL 04/26/2018 9:06 AM [facility] Alkaline Phosphatase 42 40 - 150 U/L 04/26/2018 9:06 AM [facility] ALT 17 0 - 50 U/L 04/26/2018 9:06 AM [facility] AST 15 0 - 45 U/L 04/26/2018 9:06 AM [facility] Specimen Anatomical Collection Method Collection Time Receive d Time (Source) Location / / Volume Laterality Blood specimen 04/26/2018 8:00 AM 018 8:13 (specimen) CDT AM CDT Watson Seals MD LAB - BLOOD ORDERABLES Performing Organization Address City/State/ZIP Code Phon e Number [facility] [address] [place] [address] [facility] CBC with platelets differential (04/26/2018 8:00 AM CDT) Patholo gist Method Time Signature WBC 4.5 4.0 - 04/26/2018 [facility] 11.0 8:18 AM T [facility] 10e9/L [facility] RBC Count 4.35 3.8 - 5.2 04/26/2018 [facility] 10e12/L 8:18 AM T [facility] Hemoglobin 13.4 11.7 - 04/26/2018 [facility] 15.7 g/dL 8:18 AM T [facility] Hematocrit 40.1 35.0 - 04/26/2018 [facility] 47.0 % 8:18 AM T [facility] MCV 92 78 - 100 04/26/2018 [facility] fl 8:18 AM T [facility] MCH 30.8 26.5 - 04/26/2018 [facility] 33.0 pg 8:18 AM T [facility] MCHC 33.4 31.5 - 04/26/2018 [facility] 36.5 g/dL 8:18 AM T [facility] RDW 13.0 10.0 - 04/26/2018 [facility] 15.0 % 8:18 AM [facility] Platelet Count 213 150 - 450 04/26/2018 [facility] 10e9/L 8:18 AM [facility] Diff Method Automated 04/26/2018 [facility] Method 8:18 AM [facility] % Neutrophils 56.3 % 04/26/2018 [facility] 8:18 AM [facility] % Lymphocytes 33.6 % 04/26/2018 [facility] 8:18 AM [facility] % Monocytes 8.2 % 04/26/2018 [facility] 8:18 AM [facility] % Eosinophils 1.5 % 04/26/2018 [facility] 8:18 AM [facility] % Basophils 0.2 % 04/26/2018 [facility] 8:18 AM [facility] % Immature 0.2 % 04/26/2018 [facility] Granulocytes 8:18 AM [facility] Nucleated RBCs 0 0 /100 04/26/2018 [facility] 8:18 AM [facility] Absolute 2.5 1.6 - 8.3 04/26/2018 [facility] Neutrophil 10e9/L 8:18 AM [facility] Absolute 1.5 0.8 - 5.3 04/26/2018 [facility] Lymphocytes 10e9/L 8:18 AM [facility] Absolute 0.4 0.0 - 1.3 04/26/2018 [facility] Monocytes 10e9/L 8:18 AM [facility] Absolute 0.1 0.0 - 0.7 04/26/2018 [facility] Eosinophils 10e9/L 8:18 AM [facility] Absolute 0.0 0.0 - 0.2 04/26/2018 [facility] Basophils 10e9/L 8:18 AM [facility] Abs Immature 0.0 0 - 0.4 04/26/2018 [facility] Granulocytes 10e9/L 8:18 AM [facility] Absolute 0.0 04/26/2018 [facility] Nucleated RBC 8:18 AM [facility] Specimen Anatomical Collection Method Collection Time Receive d Time (Source) Location / / Volume Laterality Blood specimen 04/26/2018 8:00 AM 018 8:13 (specimen) CDT AM CDT Watson Seals MD LAB - BLOOD ORDERABLES Performing Organization Address [facility]/ZIP Code Phon e Number [address] HCG qualitative urine (04/25/2018 11:02 AM CDT) Analysis Performed At Path logist Time Signature HCG Qual Urine Negative NEG^Negati 04/25/2018 [facility] ve 11:28 AM CDT [facility] Comment: This test is for screening purposes. ??R esults should be interpreted along with the clinical picture. ??Confirmation te sting is available if warranted by ordering [id number], HCG Quantitative Pregna ncy. Specimen Anatomical Collection Method Collection Time Receive d Time (Source) Location / / Volume Laterality Urine specimen URINE SPECIMEN / 04/25/2018 11:02 04/25 (specimen) Unknown AM CDT 11:18 AM CDT Jamin Paez MD LAB - URINE ORDERABLES Performing Organization Address [facility]/ZIP Code Phon e Number [address] (ABNORMAL) Drug abuse screen 6 urine (tox) (04/25/2018 11:02 AM CDT) [facility] gist Method Time Signature Amphetamine Qual Negative NEG^Negati 04/25/2018 [place] Urine ve 11:47 AM CDT [facility] Comment: Cutoff for a negative amphetami ne is 500 ng/mL or less. Barbiturates Qual Negative NEG^Negative 04/25/2018 11:47 AM [facility] Urine T [facility] Comment: Cutoff for a negative barbitura te is 200 ng/mL or less. Benzodiazepine Qual Positive (A) NEG^Negative 04/25/2018 11: 47 [place] Urine AM [facility] Comment: Cutoff for a positive benzodiazepine is greater than 200 ng/mL. This is an unconfirmed screening result to be used for medical purposes only. Cannabinoids Qual Positive (A) NEG^Negative 04/25/2018 11:47 [place] Urine AM [facility] Comment: Cutoff for a positive cannabinoid is gre ater than 50 ng/mL. This is an unconfirmed screening result to be used for medical purposes only. Cocaine Qual Positive (A) NEG^Negative 04/25/2018 11:47 AM F [facility] Urine [facility] Comment: Cutoff for a positive cocaine is greater than 300 ng/mL. This is an unconfirmed screening result to be used for medical purposes only. Ethanol Qual Urine Negative NEG^Negative 04/25/2018 11:4 7 AM [facility] Comment: Cutoff for a negative urine eth anol is 0.05 g/dL or less Opiates Qualitative Negative NEG^Negative 04/25/2018 11: 47 AM [facility] Comment: Cutoff for a negative opiate is 300 ng/mL or less. Specimen Anatomical Collection Method Collection Time Receive d Time (Source) Location / / Volume Laterality Urine specimen URINE SPECIMEN / 04/25/2018 11:02 04/25 (specimen) Unknown AM CDT 11:18 AM CDT Jamin Paez MD LAB - URINE ORDERABLES Performing Organization Address City/State/ZIP Code Phon e Number M [facility] [address] [address] [facility] [address] [address], [facility] [phone] documented in this encounter Visit Diagnoses Diagnosis Suicidal ideations - Primary Suicidal ideation Suicidal ideation Depression with anxiety Dysthymic disorder Cannabis use disorder, moderate, depende nce (H) Chronic midline low back pain without sc iatica Cannabis use disorder, moderate, depende nce (H) Depression with anxiety Dysthymic disorder Suicidal ideation Chronic midline low back pain without sc iatica documented in this encounter Admitting Diagnoses Diagnosis Suicidal ideation documented in this encounter Administered Medications Inactive Administered Medications - up to 3 most recent administrations Medication Order MAR Action Action Date Dose Rate Site acetaminophen (TYLENOL) tablet Given 04/25/2018 12:41 PM CDT 1,0 00 mg 1,000 mg 1,000 mg, Oral, ONCE, On Tue04/25/18 at 1215, For 1 dose, Maximum acetaminophen dose from all sources = 75 mg/kg/day not to exceed 4 gram acetaminophen (TYLENOL) tablet 650 mg Given 04/26/2018 10:01 AM CDT 650 mg 650 mg, Oral, EVERY 4 HOURS PRN, mild pain, Starting on Tue04/25/18 at 1818, Do not use if the patient has significant liver disease. MAX acetaminophen 3000 mg/24 hrs for patients greater than or equal to 65 years old. Maximum acetaminophen dose from all sources = 75 mg/kg/day not to exceed 4 grams/day. Given 04/26/2018 4:07 AM CDT 650 mg ibuprofen (ADVIL/MOTRIN) tablet 600 mg Given 04/27/2018 3:28 PM CDT 600 mg 600 mg, Oral, 3 TIMES DAILY, First dose on Tue04/26/18 at 1445 Given 04/27/2018 9:35 AM CDT 600 mg Given 04/26/2018 3:21 PM CDT 600 mg ibuprofen (ADVIL/MOTRIN) tablet 800 mg Given 04/25/2018 12:41 PM CDT 800 mg 800 mg, Oral, ONCE, On Tue04/25/18 at 1215, For 1 dose Lidocaine (LIDOCARE) 4 % Given 04/26/2018 8:18 PM CDT 1 patch Other (see comments) Patch 1-3 patch 1-3 patch, Transdermal, EVERY 24 HOURS 0800, Administer over 12 Hours, First dose on Tue04/26/18 at 2014, Apply up to 3 patches to areas of maximal pain on back. To prevent lidocaine toxicity, patient should be patch free for 12 hrs daily. Patches may be cut to smaller size prior to removing release liner. NEVER APPLY HEAT OVER PATCH which increases absorption and risk of local anesthetic toxicity. Do not apply over area where liposomal bupivacaine was injected for 96 hours post injection. lidocaine patch in PLACE First dose on Tue04/26/18 at 1445, Chart every shift, confirming that patch is still in place on patient (no barcode scan nee ded). See patch order for dose information. NEVER APPLY HEAT OVER PATCH which will i ncrease absorption and may lead to risk of local anesthetic toxicity. Do not apply over area wher e liposomal bupivacaine injected for 96 hours. lidocaine patch REMOVAL First dose on Tue04/26/18 at 2000, Patien t should have a 12 hour patch free interval tiZANidine (ZANAFLEX) tablet 2 mg Given 04/27/2018 12:10 PM CDT 2 mg 2 mg, Oral, EVERY 6 HOURS PRN, muscle spasms, Starting on Tue04/26/18 at 1442 venlafaxine (EFFEXOR-ER) 24 hr tablet 75 mg Given 04/27/2018 9:35 AM CDT 75 mg 75 mg, Oral, DAILY, First dose on Tue04/26/18 at 1300, DO NOT CRUSH. Given 04/26/2018 1:55 PM CDT 75 mg documented in this encounter Active and Recently Administered Medications Times are shown in CDT. Scheduled Medication Order 04/25/2018 04/26/2018 04/27/2018 acetaminophen (TYLENOL) tablet 1,000 mg (COMPLETED) 12 41 (Given - Provider: Karla Ramos RN) 1,000 mg, Oral, ONCE, On Tue04/25/18 at 1 215, For 1 dose, Maximum acetaminophen dose from all sources = 75 mg/kg/day not to exceed 4 gram ibuprofen (ADVIL/MOTRIN) tablet 600 mg 1 521 (Given - Provider: Deja Jerome RN)2035 (Not Given - Provider: Zenon Linares RN - Reason: Patient/family refused) 0935 (Given - Provider: Deja jade RN)1528 (Given - Provider: Deja Jerome RN) 600 mg, Oral, 3 TIMES DAILY, First dose on Tue04/26/18 at 1445 ibuprofen (ADVIL/MOTRIN) tablet 800 mg (COMPLETED) 124 1 (Given - Provider: Karla Ramos RN) 800 mg, Oral, ONCE, On Tue04/25/18 at 1215, For 1 dose Lidocaine (LIDOCARE) 4 % Patch 1-3 patch 2017 (Given - Provider: Zenon Linares RN - Comment: Lower Back) 1-3 patch, Transdermal, EVERY 24 HOURS 0 800, Administer over 12 Hours, First dose on Tue04/26/18 at 2015, Apply up to 3 patches to areas of maximal pain on back. To prevent lidocaine toxicity, patient sh ould be patch free for 12 hrs daily. Pat ches may be cut to smaller size prior to removing release liner. NEVER APPLY HEAT OVER PATCH which increases absorption and risk of local anesthetic toxicity. Do not apply over area where liposomal bupi vacaine was injected for 96 hours post injection. lidocaine patch in PLACE 1801 (Canceled Entry - Provider: Zenon Linares RN - Comment: Was never given.)2244 (Patch in Place - Provider: Zenon Linares RN) 0730 (Patch/Med Removed - Provider: Zahra Jerome RN - Comment: Was removed earlier in the night.)1445 (Canceled Entry - Provider: Orders Generic Provider - Comment: Automatically canceled at discontinue of medication order) First dose on Tue04/26/18 at 1445, Chart every shift, confirming that patch is still in place on patient (no barcode scan needed). See patch order for dose information. NEVER APPLY HEAT OVER PATCH which will increase absorption and may lead to risk of local anesthetic toxicity. Do not apply over area where liposomal bupivacaine injected for 96 hours. lidocaine patch REMOVAL 2034 (Canceled E ntry - Provider: Zenon Linares RN) First dose on Tue04/26/18 at 2000, Patien t should have a 12 hour patch free interval venlafaxine (EFFEXOR-ER) 24 hr tablet 75 mg 1355 (Given - Provider: Deja Jerome RN) 0935 (Given - Provider: Deja jade RN) 75 mg, Oral, DAILY, First dose on Tue04/26/18 at 1300, DO NOT CRU SH. PRN Medication Order 04/25/2018 04/26/2018 04/27/2018 acetaminophen (TYLENOL) tablet 650 mg 04 07 (Given - Provider: Devon Hogan RN)1001 (Given - Provider: Deja Jerome RN) 650 mg, Oral, EVERY 4 HOURS PRN, mild pa in, Starting on Tue04/25/18 at 1818, Do not use if the patient has significant liver disease. MAX acetaminophen 3000 mg/24 hrs for patients greater than or equal t o 65 years old. Maximum acetaminophen do se from all sources = 75 mg/kg/day not to exceed 4 grams/day. alum & mag hydroxide-simethicone (MYLANTA ES/MAALOX ES) suspensi on 30 mL 30 mL, Oral, EVERY 4 HOURS PRN, indigest ion, Starting Tue04/25/18 at 1818, Shake well. bisacodyl (DULCOLAX) Suppository 10 mg 10 mg, Rectal, DAILY PRN, constipation, Starting Tue04/25/18 at 1 818 hydrOXYzine (ATARAX) tablet 25 mg 25 mg, Oral, EVERY 4 HOURS PRN, anxiety, Starting Tue04/25/18 at 1817 magnesium hydroxide (MILK OF MAGNESIA) suspension 30 mL 30 mL, Oral, AT BEDTIME PRN, constipatio n, Starting Tue04/25/18 at 1818, Shake well. nicotine polacrilex (NICORETTE) gum 4-8 mg 4-8 mg, Buccal, EVERY 1 HOUR PRN, other, nicotine withdrawal symptoms, Starting Tue04/25/18 at 1818, Chew until tingling, then place between cheek and gum. Repeat. Do not swallow. Not to exceed 96 mg in a 24 hour time period. tiZANidine (ZANAFLEX) tablet 2 mg 1210 (Given - Provider: Deja Jerome RN) 2 mg, Oral, EVERY 6 HOURS PRN, muscle spasms, Starting on 05/08 at 1442 traZODone (DESYREL) tablet 50 mg 50 mg, Oral, AT BEDTIME PRN, sleep, Starting Tue 8 at 1818, March repeat x 1 documented in this encounter Additional Health Concerns Assessment Noted Time PHQ-9 Depression Total Score: 19 09/04/2015 7:20 AM CD T documented as of this encounter Care Teams Consumer Safety Officer Relationship Specialty Start Date End Date No Ref-Primary, Physician PCP - General 07/27/15 04/14/20 documented as of this encounter
--- OUTSIDE RECORDS SUMMARY | 2022-08-31 22:24 | XMS_ITS | Encounter Summary ---
:1990 Author Organization [facility] Address [address] [place] [id number] Care Team Providers Name Role Phone No Ref-Primary, Physician Primary Care Provider [phone] Holland Thomas MD Primary Care Provider [phone] Reason for Visit Reason Comments Other Encounter Details Date Type Department Care Team Description 12/27/2017 Communication - [facility] Centralized Holland Thomas Ot her [facility] Scheduling MD Ambros[address] [address] [phone] Social History Tobacco Use Types Packs/Day Years Used Date Smoking Tobacco: Former Cigarettes 0.1 Smokeless Tobacco: Never Comments: smoking 10cig/day- down to 1-2 with Alcohol Use Standard Drinks/Week Comments No 0 [...] documented as of this encounter Care Teams Sole Skiver Relationship Specialty Start Date End Date No Ref-Primary, Physician PCP - General 07/27/15 04/14/20 Holland Thomas MD PCP - General transit clerk 04/15/20 [address] [place] [id number] documented as of this encounter
--- OUTSIDE RECORDS SUMMARY | 2022-08-31 22:24 | XMS_ITS | Encounter Summary ---
:1990 Author Organization [facility] Address [address] [place] [address] Care Team Providers Name Role Phone No Ref-Primary, Physician Primary Care Provider [phone] Reason for Visit Reason Comments Nausea, Vomiting, & Diarrhea Encounter Details Date Type Department Care Team Description 11/13/2018 Emergency [facility] Quintin Dominguez, Justin vomiting and [facility] diarrhea Emergency Room [address] [id number] [phone] Social History Tobacco Use Types Packs/Day Years [...] - Inhaled Oxygen Concentration - - Weight 68 kg (150 lb) 11/13/2018 10:07 AM PASTEURIZER HELPER Height 170.2 cm (5' 7) 11/13/2018 10:07 AM PASTEURIZER HELPER Body Mass Index 23.49 11/13/2018 10:07 AM PASTEURIZER HELPER documented in this encounter Medications at Time [...] documented as of this encounter Progress Notes Jorge Martel RPH - 11/13/2018 2:17 PM CST Pharmacy Note - - Medication History Pertinent Provider Information: Prior To Admission (WARP TYING MACHINE KNOTTER) med list completed and updated in EMR. [employer]ARP TYING MACHINE [employer]NOTTER Med List Medication Sig Last Dose ??? ferrous sulfate 325 (65 FE) MG tablet Take 1 tablet by mouth daily with breakfast. 11/12/2018 atUnknown time ??? ondansetron (ZOFRAN ODT) 4 MG disintegrating tablet Take 1 tablet (4 mg total) by mouth every 8 (eight) hours as needed for nausea. More than a month at Unknown time Information source(s): Patient and CareEverywhere/SureScripts Summary of Changes to WARP TYING MACHINE KNOTTER Med List New: FeSO4 Discontinued: ondansetron 8mg and Percocet Changed: none Patient was asked about OTC/herbal products specifically. WARP TYING MACHINE KNOTTER med list reflects this. Based on the pharmacist???s assessment, the WARP TYING MACHINE KNOTTER med list information appears reliable Patient appears adherent: Yes Allergies were reviewed, assessed, and updated with the patient. Patient does not use any multi-dose medications prior to admission. Thank you for the opportunity to participate in the care of this patient. Jorge Martel RPh 11/13/2018 2:17 PM EURIZER HELPER documented in this encounter ED Notes Quintin Dominguez MD - 11/13/2018 10:21 AM CST eMERGENCY dEPARTMENT eNCOUnter CHIEF COMPLAINT Chief Complaint Patient presents with ??? Nausea/Vomiting/Diarrhea HPI 28 year old female presents to the ED for nausea; vomiting; diarrhea evaluation. Patient reports having multiple episodes of vomiting and diarrhea since 0500. Noted that she is having abdominal pain. Denies fever at home. Stated that she has not been in contact with anyone who is sick. Was given 8 mg of Zofran was given to patient by EMS which did not help. She does not identify any waxing or waning symptoms otherwise, exacerbating or alleviating features,associated symptoms except as mentioned. He denies any pain related complaints. PAST MEDICAL HISTORY Past Medical History: Diagnosis Date ??? Abnormal [...] Procedure: SECTION; Surgeon: Holland Thomas MD; Location: [facility] OR; [facility]: ?[facility] [place] [place] ??? [place] LAP,FULGURATE/EXCISE LESIONS Right 03/25/2017 Procedure: LAPAROSCOPY, OVARIAN CYSTECTOMY; Surgeon: Holland Thomas MD; Location: [facility] OR; Service: Gynecology CURRENT MEDICATIONS Current Facility-Administered Medications: ??? HYDROmorphone injection 1 mg (DILAUDID), 1 mg, Intravenous, Once, Quintin Dominguez MD ??? metoclopramide injection 10 mg (REGLAN), 10 mg, Intravenous, Once, Quintin Dominguez MD ??? naloxone injection 0.2-0.4 mg (NARCAN), 0.2-0.4 mg, Intravenous, PRN OR naloxone injection 0.2-0.4 mg (NARCAN), 0.2-0.4 mg, Intramuscular, PRN, Quintin Dominguez MD ??? sodium chloride 0.9% 1,000 mL, 1,000 mL, Intravenous, Once, Quintin Dominguez MD Current Outpatient Medications: ??? busPIRone (BUSPAR) 15 MG tablet, Take 15 mg by mouth daily as needed., Disp: , Rfl: ??? ondansetron (ZOFRAN ODT) 4 MG disintegrating tablet, Take 1 tablet (4 mg total) by mouth every 8(eight) hours as needed for nausea., Disp: 8 tablet, Rfl: 0 ??? ondansetron (ZOFRAN) 8 MG tablet, Take 1 tablet (8 mg total) by mouth 2 (two) times a day as needed., Disp: 20 tablet, Rfl: 0 ??? PERCOCET 5-325 mg per tablet, Take 1 tablet by mouth every 4 (four) hours as needed for pain., Disp: 25 tablet, Rfl: 0 Medications HYDROmorphone injection 1 mg (DILAUDID) (not administered) naloxone injection 0.2-0.4 mg (NARCAN) (not administered) Or naloxone injection 0.2-0.4 mg (NARCAN) (not administered) metoclopramide injection 10 mg (REGLAN) (not administered) sodium chloride 0.9% 1,000 mL (not administered) ALLERGIES Allergies Allergen Reactions ??? Blood-Group Specific Substance Other (See Comments) Warm autoantibodies present. Blood for transfusion will be delayed. Draw 3 lavender and 1 red tube for type and screen orders. ??? Morphine Nausea And Vomiting and Myalgia Nerve pain FAMILY HISTORY Family History Problem Relation Age of Onset [...] Paternal Grandfather ??? Stroke Paternal Grandfather SOCIAL HISTORY Social History Socioeconomic History ??? Marital status: Single Spouse name: Jose ??? Number of children: Not on file ??? Years of education: come doreen ??? Highest education level: Not on file Social Needs ??? Financial resource strain: Not on file ??? Food insecurity - worry: Not on file ??? Food insecurity - inability: Not on file ??? Transportation needs - medical: Not on file ??? Transportation needs - non-medical: Not on file Occupational History ??? Occupation: unemployed Tobacco Use ??? Smoking status: Current Every Day Smoker ??? Smokeless tobacco: Never Used ??? Tobacco comment: 1-2 cigs daily Substance and Sexual Activity ??? Alcohol use: No ??? Drug use: No ??? Sexual activity: Yes control/protection: IUD, None Other Topics Concern ??? Not on file Social History Narrative ??? Not on file Positive for tobacco. Admission to the hospital in May for alcohol. Marijuana use. The latter 2 noted in old records. REVIEW OF SYSTEMS Positive for nausea, vomiting, diarrhea, abdominal pain. Otherwise review of systems is negative. PHYSICAL EXAM Vital Signs: BP 125/73 (Patient Position: Semi-shankar) Pulse (!) 57 Temp 98.7 ??F (37.1 ??C) (Oral) Resp 18 Ht 5' 7 (1.702 m) Wt 150 lb (68 kg) LMP 01/14/2017 (Exact Date) SpO2 100% ? No BMI 23.49 kg/m?? General: On entering the room she appears nauseated. Neck: Neck supple with full range of motion and nontender. Back: Back and spine are nontender. No costovertebral angle tenderness. HEENT: Oropharynx clear with moist mucous membranes. HEENT unremarkable. Pulmonary: Chest clear to auscultation without rhonchi rales or wheezing. Cardiovascular: Cardiac regular rate and rhythm without murmurs rubs or gallops. Abdomen: Abdomen soft nontender. Sore abdominal muscles with throwing up. There is no rebound or guarding. Muskuloskeletal: she moves all 4 without any difficulty and has normal neurovascular exams. Extremities without clubbing, cyanosis, or edema. Legs and calves are nontender. Neuro: she is alert and oriented ??3 and moves all extremities symmetrically. Psych: Normal affect. Skin: Unremarkable and warm and dry. Appears pale. LAB Pertinent Labs Reviewed Results for orders placed or performed during the hospital encounter of 11/13/18 Comprehensive Metabolic Panel Result Value Ref Range Sodium 142 136 - 145 mmol/L Potassium 3.2 (L) 3.5 - 5.0 mmol/L Chloride 107 98 - 107 mmol/L CO2 21 (L) 22 - 31 mmol/L Anion Gap, Calculation 14 5 - 18 mmol/L Glucose 100 70 - 125 mg/dL BUN 15 8 - 22 mg/dL Creatinine 0.81 0.60 - 1.10 mg/dL GFR MDRD Af Amer >60 >60 mL/min/1.73m2 GFR MDRD Non Af Amer >60 >60 mL/min/1.73m2 Bilirubin, Total 0.6 0.0 - 1.0 mg/dL Calcium 9.6 8.5 - 10.5 mg/dL Protein, Total 8.4 (H) 6.0 - 8.0 g/dL Albumin 4.5 3.5 - 5.0 g/dL Alkaline Phosphatase 38 (L) 45 - 120 U/L AST 20 0 - 40 U/L ALT 26 0 - 45 U/L HCG, Qual Result Value Ref Range Beta hCG Qualitative Negative Negative Lipase Result Value Ref Range Lipase <9 0 - 52 U/L HM1 (CBC with Diff) Result Value Ref Range WBC 10.0 4.0 - 11.0 thou/uL RBC 4.22 3.80 - 5.40 mill/uL Hemoglobin 13.3 12.0 - 16.0 g/dL Hematocrit 38.4 35.0 - 47.0 % MCV 91 80 - 100 fL MCH 31.5 27.0 - 34.0 pg MCHC 34.6 32.0 - 36.0 g/dL RDW 12.1 11.0 - 14.5 % Platelets 195 140 - 440 thou/uL MPV 9.7 8.5 - 12.5 fL Neutrophils % 86 (H) 50 - 70 % Lymphocytes % 11 (L) 20 - 40 % Monocytes % 3 2 - 10 % Eosinophils % 0 0 - 6 % Basophils % 0 0 - 2 % Neutrophils Absolute 8.5 (H) 2.0 - 7.7 thou/uL Lymphocytes Absolute 1.1 0.8 - 4.4 thou/uL Monocytes Absolute 0.3 0.0 - 0.9 thou/uL Eosinophils Absolute 0.0 0.0 - 0.4 thou/uL Basophils Absolute 0.0 0.0 - 0.2 thou/uL EKG RADIOLOGY Pertinent Labs Reviewed Please see official radiology report. No orders to display No results found. PROCEDURES ED COURSE & MEDICAL DECISION MAKING 10:18 AM I met with this patient for initial interview and exam. 1425. Laboratory work unremarkable. Patient feeling better after multiple doses of fluids, pain medication, nausea medication and will be able to be discharged home. Patient aware the findings in agreement with the plan. Prescriptions for Percocet and Zofran given. FINAL IMPRESSION Acute nausea, vomiting, and diarrhea. Quintin Gallegos MD 11/13/18 1426 EURIZER HELPER documented in this encounter Plan of Treatment Not on filedocumented as of this encounter Procedures Procedure Name Priority Date/Time Associated Comments Diagnosis CBC WITH PLATELETS AND STAT 11/13/2018 10:40 R esults for this DIFFERENTIAL AM PASTEURIZER HELPER procedure are i n the results section. LIPASE STAT 11/13/2018 10:40 Results for this AM PASTEURIZER HELPER procedure are i n the results section. HCG QUALITATIVE STAT 11/13/2018 10:40 Results for this AM PASTEURIZER HELPER procedure are i n the results section. COMPREHENSIVE STAT 11/13/2018 10:40 Results fo r this METABOLIC PANEL AM PASTEURIZER HELPER procedure ar e in the results section. documented in this encounter Results (ABNORMAL) CBC WITH PLATELETS AND DIFFERENTIAL (11/13/2018 10:40 AM PASTEURIZER HELPER) [facility] Method Time Signature WBC 10.0 4.0 - 11.0 11/13/2018 HEALTH [facility]/uL 10:54 AM PASTEURIZER HELPER [facility] RBC Count 4.22 3.80 - 11/13/2018 M [facility] 5.40 10:54 AM PASTEURIZER HELPER [facility]/uL [facility] Hemoglobin 13.3 12.0 - 11/13/2018 HEALTH 16.0 g/dL 10:54 AM PASTEURIZER HELPER [facility] Hematocrit 38.4 35.0 - 11/13/2018 HEALTH 47.0 % 10:54 AM PASTEURIZER HELPER [facility] MCV 91 80 - 100 11/13/2018 HEALTH fL 10:54 AM [facility] MCH 31.5 27.0 - 11/13/2018 HE[facility] 34.0 pg 10:54 AM PASTEURIZER HELPER [facility] MCHC 34.6 32.0 - 11/13/2018 HE[facility] 36.0 g/dL 10:54 AM PASTEURIZER HELPER [facility] RDW 12.1 11.0 - 11/13/2018 HEALTH 14.5 % 10:54 AM PASTEURIZER HELPER [facility] Platelet Count 195 140 - 440 11/13/2018 [facility]/ 10:54 AM [facility] Mean Platelet 9.7 8.5 - 12.5 11/13/2018 HEALTH Volume fL 10:54 AM PASTEURIZER HELPER [facility] % Neutrophils 86 (H) 50 - 70 % 11/13/2018 HE[facility] 10:54 AM PASTEURIZER HELPER [facility] % Lymphocytes 11 (L) 20 - 40 % 11/13/2018 [facility] 10:54 AM [facility]STEURIZER HELPER [facility] % Monocytes 3 2 - 10 % 11/13/2018 [facility] 10:54 AM PASTEURIZER HELPER [facility] % Eosinophils 0 0 - 6 % 11/13/2018 [facility] 10:54 AM [facility]STEURIZER HELPER [facility] % Basophils 0 0 - 2 % 11/13/2018 [facility] 10:54 AM PASTEURIZER HELPER [facility] Absolute 8.5 (H) 2.0 - 7.7 11/13/2018 [facility] Neutrophils thou/uL 10:54 AM PASTEURIZER HELPER [facility] Absolute 1.1 0.8 - 4.4 11/13/2018 [facility] Lymphocytes thou/uL 10:54 AM PASTEURIZER HELPER [facility] Absolute 0.3 0.0 - 0.9 11/13/2018 [facility] Monocytes thou/uL 10:54 AM PASTEURIZER HELPER [facility] Eosinophils 0.0 0.0 - 0.4 11/13/2018 [facility] Absolute thou/uL 10:54 AM PASTEURIZER HELPER [facility] Absolute 0.0 0.0 - 0.2 11/13/2018 [facility] Basophils thou/uL 10:54 AM PASTEURIZER HELPER [facility] Specimen Anatomical Collection Method Collection Time Receive d Time (Source) Location / / Volume Laterality Blood specimen VAD(CVC, PICC) / 11/13/2018 10:40 11/13 (specimen) Unknown AM PASTEURIZER HELPER 10:48 AM PASTEURIZER HELPER Quintin Dominguez MD LAB - BLOOD ORDERABLES Performing Organization Address City/[facility]/ZIP [facility] Phon e Number [facility] [place] [address] Lab Sylvia Felder [facility] [place] [address] LABORATORY hCG Qualitative (11/13/2018 10:40 AM PASTEURIZER HELPER) [facility] Method Time Signature hCG Serum Negative Negative 11/13/2018 HEALTH Qualitative 11:08 AM PASTEURIZER HELPER [email or web address] Specimen Anatomical Collection Method Collection Time Receive d Time (Source) Location / / Volume Laterality Blood specimen VAD(CVC, PICC) / 11/13/2018 10:40 11/13 (specimen) Unknown AM PASTEURIZER HELPER 10:48 AM PASTEURIZER HELPER Quintin Dominguez MD LAB - BLOOD ORDERABLES Performing Organization Address City/[facility] Phon e Number [facility] [place] [address] [place] [address] LABORATORY Lipase (11/13/2018 10:40 AM PASTEURIZER HELPER) P athologist Signature Lipase <9 0 - 52 U/L 11/13/2018 HEALTH 11:08 AM [facility] Specimen Anatomical Collection Method Collection Time Receive d Time (Source) Location / / Volume Laterality Blood specimen VAD(CVC, PICC) / 11/13/2018 10:40 11/13 (specimen) Unknown AM PASTEURIZER HELPER 10:48 AM PASTEURIZER HELPER Quintin Dominguez MD LAB - BLOOD ORDERABLES Performing Organization Address City/State/ZIP Code Phon e Number [facility] [place] [address] Lab [facility]ly [facility] Franky Felder [facility] [address] [place] [address] [place] [address] LABORATORY (ABNORMAL) Comprehensive metabolic panel (11/13/2018 10:40 AM PASTEURIZER HELPER) Patholo gist Method Time Signature Sodium 142 136 - 145 11/13/2018 HEALTH mmol/L 11:06 AM [facility] Potassium 3.2 (L) 3.5 - 5.0 11/13/2018 HEALTH mmol/L 11:06 AM [facility] Chloride 107 98 - 107 11/13/2018 [facility] mmol/L 11:06 AM [facility] Carbon Dioxide 21 (L) 22 - 31 11/13/2018 HEALTH (CO2) mmol/L 11:06 AM [facility] Anion Gap 14 5 - 18 11/13/2018 HEALTH mmol/L 11:06 AM [facility] Glucose 100 70 - 125 11/13/2018 HEALTH mg/dL 11:06 AM [facility] Urea Nitrogen 15 8 - 22 11/13/2018 HEALTH mg/dL 11:06 AM [facility] Creatinine 0.81 0.60 - 11/13/2018 HEALTH 1.10 mg/dL 11:06 AM [facility] GFR Estimate If >60 >60 11/13/2018 HEALTH Black mL/min/1.7 11:[address] LABORATORY GFR Estimate >60 >60 11/13/2018 [facility] mL/min/1.7 11:[address] LABORATORY Bilirubin Total 0.6 0.0 - 1.0 11/13/2018 HEALTH mg/dL 11:06 AM [facility] Calcium 9.6 8.5 - 10.5 11/13/2018 HEALTH mg/dL 11:06 AM [facility] Protein Total 8.4 (H) 6.0 - 8.0 11/13/2018 HEALTH g/dL 11:06 AM [facility] Albumin 4.5 3.5 - 5.0 11/13/2018 HEALTH g/dL 11:06 AM [facility] Alkaline 38 (L) 45 - 120 11/13/2018 [facility] Phosphatase U/L 11:06 AM [facility] AST 20 0 - 40 U/L 11/13/2018 HEALTH 11:06 AM [facility] ALT 26 0 - 45 U/L 11/13/2018 HEALTH 11:06 AM [facility] Specimen Anatomical Collection Method Collection Time Receive d Time (Source) Location / / Volume Laterality Blood specimen VAD(CVC, PICC) / 11/13/2018 10:40 11/13 (specimen) Unknown AM PASTEURIZER HELPER 10:48 AM PASTEURIZER HELPER Narrative [facility] - 11/13/2018 11:06 AM PASTEURIZER HELPER Fasting Glucose reference range is 70-99 mg/dL per [place] [employer] (ADA) nazanin [employer]. Quintin Dominguez MD LAB - BLOOD ORDERABLES Performing Organization Address City/State/ZIP Code Phon e Number [facility] [place] [address] [place] [facility] Sylvia Felder [place] [id number] [address] [facility] [address] [address] documented in this encounter Visit Diagnoses Diagnosis Nausea vomiting and diarrhea Nausea with vomiting documented in this encounter Additional Health Concerns Assessment Noted Time PHQ-9 Depression Total Score: 19 09/04/2015 7:20 AM CD T documented as of this encounter Care Teams [employer] Reading Teacher Relationship Specialty Start Date End Date No Ref-Primary, Physician PCP - General 07/27/15 04/14/20 documented as of this encounter
--- OUTSIDE RECORDS SUMMARY | 2022-08-31 22:24 | XMS_ITS | Encounter Summary ---
:1990 Author Organization [facility] [place] Address [address] [place] [address] Care Team Providers Name Role Phone No Ref-Primary, Physician Primary Care Provider [phone] Holland Thomas MD Primary Care Provider [phone] Encounter Details Date Type Department Care Team Description 12/20/2017 Anesthesia - [facility] Paola Castro OR MD Sierra [address] [place] [id number] Social History Tobacco Use Types Packs/Day Years Used Date Smoking Tobacco: Former Cigarettes 0.1 Smokeless Tobacco: Never Comments: smoking 10cig/day- down to 1-2 with Alcohol Use Standard Drinks/Week Comments No 0 (1 standard drink = 0.6 oz pure alcoho l) Sex Assigned at Date Recorded Not on file documented as of this encounter OR Notes Anesthesia Postprocedure Evaluation - Scot Weeks 12/21/2017 11:57 AM UNDERCOLLAR MAKER [facility] TOTAL LAPAROSCOPIC HYSTERECTOMY, BILATERAL SALPINGECTOMY Anesthesia type: general Patient location: PACU Last vitals: Vitals: 12/21/17 1130 BP: 90/47 Pulse: (!) 57 Resp: 18 Temp: 36.3 ??C (97.3 ??F) SpO2: 99% Post vital signs: stable Level of consciousness: awake and responds to simple questions Post-anesthesia pain: pain controlled Post-anesthesia nausea and vomiting: no Pulmonary: unassisted, return to baseline Cardiovascular: stable and blood pressure at baseline Hydration: adequate Anesthetic events: no QCDR Measures: ASA# 11 - Yamileth-op Cardiac Arrest: ASA11B - Patient did NOT experience unanticipated cardiac arrest ASA# 12 - Yamileth-op Mortality Rate: ASA12B - Patient did NOT ASA# 13 - PACU Re-Intubation Rate: ASA13B - Patient did NOT require a new airway mgmt ASA# 10 - Composite Anes Safety: ASA10A - No serious adverse event Additional Notes: RCOLLAR MAKER Anesthesia Procedure Notes - Scot Weeks - 12/21/2017 11:13 AM UNDERCOLLAR MAKER Peripheral Block Patient location during procedure: pre-op Start time: 12/21/2017 11:03 AM End time: 12/21/2017 11:11 AM post-op analgesia per surgeon order as noted in medical record Staffing: Performing Anesthesiologist: SCOT WEEKS Preanesthetic Checklist Completed: patient identified, site marked, risks, benefits, and alternatives discussed, timeout performed, consent obtained, airway assessed, oxygen available, suction available, emergency drugs available and hand hygiene performed Peripheral Block Block type: other, TAP Prep: ChloraPrep Patient position: supine Patient monitoring: blood pressure, heart rate, continuous pulse oximetry and monitoring and evaluation advisor Anesthesia laterality: bilateral. Injection technique: ultrasound guided Ultrasound used to visualize needle placement in proximity to nerve being blocked: yes Permanent ultrasound image captured for medical record Needle Needle type: Stimuplex Needle gauge: 21 G Needle length: 4 in no peripheral nerve catheter placed Assessment Injection assessment: no difficulty with injection, negative aspiration for heme, no paresthesia on injection and incremental injection RCOLLAR MAKER documented in this encounter Miscellaneous Notes Anesthesia Care Transfer Note - Amarilys Delacruz - 12/21/2017 11:03 AM UNDERCOLLAR MAKER Last vitals: Vitals: 12/21/17 1101 BP: 118/62 Pulse: 62 Resp: 14 Temp: 36.2 ??C (97.2 ??F) SpO2: 100% Patient spontaneous RR, TV 400s, suctioned, following commands, extubated to facemask 10LPM, O2 [id number]%. VSS. Report to RN. Patient's level of consciousness is drowsy Spontaneous respirations: yes Maintains airway independently: yes Dentition unchanged: yes Oropharynx: oropharynx clear of all foreign objects QCDR Measures: ASA# 20 - Surgical Safety Checklist: WHO surgical safety checklist completed prior to induction PQRS# 430 - Adult PONV Prevention: 4558F - Pt received => 2 anti-emetic agents (different classes) preop & intraop ASA# 8 - Peds PONV Prevention: NA - Not pediatric patient, not GA or 2 or more risk factors NOT present PQRS# 424 - Yamileth-op Temp Management: 4559F - At least one body temp DOCUMENTED => 35.5C or 95.9F within required timeframe PQRS# 426 - PACU Transfer Protocol:G9655 - Transfer of care checklist used ASA# 14 - Acute Post-op Pain: ASA14B - Patient did NOT experience pain >= 7 out of 10 RCOLLAR MAKER documented in this encounter Plan of Treatment Not on filedocumented as of this encounter Visit Diagnoses Not on filedocumented in this encounter Additional Health Concerns Assessment Noted Time PHQ-9 Depression Total Score: 19 09/04/2015 7:20 AM CD T documented as of this encounter Care Teams Mattress Finisher Relationship Specialty Start Date End Date No Ref-Primary, Physician PCP - General 07/27/15 04/14/20 Holland Thomas MD PCP - General grey washer 04/15/20 [address] RIZVI [address] [place] [address] documented as of this encounter
--- OUTSIDE RECORDS SUMMARY | 2022-08-31 22:24 | XMS_ITS | Encounter Summary ---
:1990 Author Organization [place] Address [facility] [place] [address] Care Team Providers Name Role Phone No Ref-Primary, Physician Primary Care Provider [phone] Reason for Visit Reason Comments Vomiting Encounter Details Date Type Department Care Team Description 03/10/2018 Emergency [facility] Lluvia Coyle abdominal pain; [facility] MD Esthela Vomiting; Emergency Department [address] [facility] Hypokalemia [address] [place] [address] [place], [place] [phone] (Wo rk) [id number] [phone] Social History Tobacco Use Types Packs/Day Years [...] - Inhaled Oxygen Concentration - - Weight 70.8 kg (156 lb) 03/09/2018 10:33 PM CDT Height - - Body Mass Index 24.43 12/20/2017 10:26 AM TRANSFER PUMPER documented in this encounter Medications at Time of Discharge Medication Sig Dispensed Refills Start Date End Date Vit-Fe Take 1 tablet by 0 04/07/201603/2018 Fumarate-FA ( mouth daily COMPLETE) 14-0.4 MG TABS documented as of this encounter ED Notes Lluvia Coyle MD - 03/10/2018 12:44 AM CDT EMERGENCY DEPARTMENT ENCOUnter NAME: Keyla Porter AGE: 27 y.o. female DATE OF : 1990 PCP: Holland Thomas MD CHIEF COMPLAINT Chief Complaint Patient presents with ??? Emesis HPI Keyla Porter is a 27 y.o. female with a past medical history for anemia, PID, endometriosis s/plaparoscopic hysterectomy on 12/21/17 (2.5 months ago) who presents to this ED for evaluation of emesis. She states she missed her 6 month post-up appointment and is concerned her symptoms may have to do with her missing this appointment. In the last week the pt has been vomiting up bile. She has nausea, fevers (Tmax 100.4F), chills and diaphoresis which are mostly in the morning and some in the early afternoon. Pt also endorses abdominal cramping pain and right sided headaches during the night. She otherwise denies vaginal bleeding or abnormal vaginal discharge. The creation of this record is based on the scribe's observations of the work of Lluvia Coyle MD and the provider's statements to them. It was created on her behalf by Angelia Keating, a trained chief medical director. This document has been checked and approved by the attending provider. REVIEW OF SYSTEMS A 10 point ROS was performed. All pertinent positive and negatives are in the HPI and ROS below. Allothers noncontributory. Review of Systems Constitutional: Positive for fever (100.4 max, in the mornings). HENT: Negative for trouble swallowing. Respiratory: Negative for cough and shortness of breath. Cardiovascular: Negative for chest pain. Gastrointestinal: Positive for abdominal pain, nausea and vomiting. Negative for diarrhea. Genitourinary: Negative for dysuria. Allergic/Immunologic: Negative for immunocompromised state. CODE STATUS: Full PAST MEDICAL HISTORY Past Medical History: Diagnosis [...] Varicella twice as a child PAST SURGICAL HISTORY Past Surgical History: Procedure Laterality Date ??? SECTION N/A 11/17/2016 Procedure: SECTION; Surgeon: Holland Thomas MD; Location: [facility] L+D OR; Service: ??? COLPOSCOPY 2011 ??? ENDOMETRIAL ABLATION during one of the laparotomies ??? EXPLORATORY LAPAROTOMY 3x - last in 10/2015, 2010, Gyne surgeon in 2015 states no contraindication to vaginal per patient ??? IUD removal 11/13/2015 laproscopic procedure ??? LAPAROSCOPIC HYSTERECTOMY N/A 12/21/2017 Procedure: ROBOTC TOTAL LAPAROSCOPIC HYSTERECTOMY, BILATERAL SALPINGECTOMY ; Surgeon: Holland Thomas MD; Location: [facility] Main OR; Service: ??? WV LAP,FULGURATE/EXCISE LESIONS Right 03/25/2017 Procedure: LAPAROSCOPY, OVARIAN CYSTECTOMY; Surgeon: Holland Thomas MD; Location: [facility] OR; Service: Gynecology CURRENT MEDICATIONS Current Outpatient Prescriptions Medication Sig ??? busPIRone (BUSPAR) 15 MG tablet Take 15 mg by mouth daily as needed. ??? ondansetron (ZOFRAN ODT) 4 MG disintegrating tablet Take 1 tablet (4 mg total) by mouth every 8 (eight) hours as needed for nausea. ??? ondansetron (ZOFRAN) 8 MG tablet Take 1 tablet (8 mg total) by mouth 2 (two) times a day as needed. ??? PERCOCET 5-325 mg per tablet Take 1 tablet by mouth every 4 (four) hours as needed for pain. ALLERGIES Allergies Allergen Reactions ??? Blood-Group Specific [...] Stroke Paternal Grandfather SOCIAL HISTORY Social History Substance Use Topics ??? Smoking status: Current Every Day Smoker ??? Smokeless tobacco: Never Used Comment: 1-2 cigs daily ??? Alcohol use No Social History Social History ??? Marital status: Single Spouse name: Jose ??? Number of children: N/A ??? Years of education: come doreen Occupational History ??? unemployed Social History Main Topics ??? Smoking status: Current Every Day Smoker ??? Smokeless tobacco: Never Used Comment: 1-2 cigs daily ??? Alcohol use No ??? Drug use: No ??? Sexual activity: Yes control/ protection: IUD, None Other Topics Concern ??? Not on file Social History Narrative VITALS: Patient Vitals for the past 24 hrs: BP Temp Temp src Pulse Resp SpO2 Weight 03/10/18 0200 108/64 - - (!) 46 - 98 % - 03/10/18 0145 108/61 - - - - - - 03/10/18 0143 - - - (!) 51 - 100 % - 03/10/18 0130 108/59 - - (!) 52 - 99 % - 03/09/18 2233 145/81 98 ??F (36.7 ??C) Oral 76 18 99 % 156 lb (70.8 kg) PHYSICAL EXAM Constitutional: Well developed, Well nourished, NAD, GCS 15 HENT: Normocephalic, Atraumatic, Bilateral external ears normal, [...] No excessive obesity. Bowel sounds normal, Soft, minimal lower abd tenderness, No masses, No flank tenderness. No rebound or guarding. : deferred Musculoskeletal: 2+ DP pulses. No cyanosis, No clubbing. Good range of motion in all major joints. No major deformities noted. Integument: Warm, Dry, No erythema, No rash. No petechiae. Neurologic: Alert & oriented x 3, N No focal deficits noted. Normal gait. Psychiatric: Affect normal, Judgment normal, Mood normal. Cooperative. LAB All pertinent labs reviewed Recent Results (from the past 24 hour(s)) HM2 (CBC W/O DIFF) Collection Time: 03/10/18 12:45 AM Result Value Ref Range WBC 5.1 4.0 - 11.0 thou/uL RBC 3.91 3.80 - 5.40 mill/uL Hemoglobin 12.2 12.0 - 16.0 g/dL Hematocrit 35.6 35.0 - 47.0 % MCV 91 80 - 100 fL MCH 31.2 27.0 - 34.0 pg MCHC 34.3 32.0 - 36.0 g/dL RDW 12.8 11.0 - 14.5 % Platelets 219 140 - 440 thou/uL MPV 10.3 8.5 - 12.5 fL Basic Metabolic Panel Collection Time: 03/10/18 12:45 AM Result Value Ref Range Sodium 140 136 - 145 mmol/L Potassium 3.2 (L) 3.5 - 5.0 mmol/L Chloride 107 98 - 107 mmol/L CO2 22 22 - 31 mmol/L Anion Gap, Calculation 11 5 - 18 mmol/L Glucose 91 70 - 125 mg/dL Calcium 9.3 8.5 - 10.5 mg/dL BUN 13 8 - 22 mg/dL Creatinine 0.75 0.60 - 1.10 mg/dL GFR MDRD Af Amer >60 >60 mL/min/1.73m2 GFR MDRD Non Af Amer >60 >60 mL/min/1.73m2 Hepatic Profile Collection Time: 03/10/18 12:45 AM Result Value Ref Range Bilirubin, Total 0.4 0.0 - 1.0 mg/dL Bilirubin, Direct 0.2 <=0.5 mg/dL Protein, Total 8.2 (H) 6.0 - 8.0 g/dL Albumin 3.9 3.5 - 5.0 g/dL Alkaline Phosphatase 41 (L) 45 - 120 U/L AST 22 0 - 40 U/L ALT 30 0 - 45 U/L Lipase Collection Time: 03/10/18 12:45 AM Result Value Ref Range Lipase 12 0 - 52 U/L Urinalysis-UC if Indicated for patients > 12 years Collection Time: 03/10/18 1:17 AM Result Value Ref Range Color, UA Yellow Colorless, Yellow, Straw, Light Yellow Clarity, UA Clear Clear Glucose, UA Negative Negative Bilirubin, UA Negative Negative Ketones, UA Trace (!) Negative, 60 mg/dL Specific [place], UA 1.022 1.001 - 1.030 Blood, UA Negative Negative pH, UA 6.5 4.5 - 8.0 Protein, UA Trace (!) Negative mg/dL Urobilinogen, UA <2.0 E.U./dL <2.0 E.U./dL, 2.0 E.U./dL Nitrite, UA Negative Negative Leukocytes, UA Negative Negative Bacteria, UA None Seen None Seen hpf RBC, UA 0-2 None Seen, 0-2 hpf WBC, UA 0-5 None Seen, 0-5 hpf Squam Epithel, UA 10-25 (!) None Seen, 0-5 lpf Mucus, UA Few (!) None Seen lpf Lab Results Component Value Date ABORH A POS 12/20/2017 RADIOLOGY Reviewed all pertinent imaging Please see official radiology report. Ct Abdomen Pelvis Without Oral With Iv Contrast Result Date: 03/10/2018 CT ABDOMEN PELVIS WO ORAL W IV CONTRAST 03/10/2018 2:24 AM INDICATION: lower abd pain lower abd pain TECHNIQUE: CT abdomen and pelvis. Multiplanar reformation images (MPR). Dose reduction techniques were used. IV CONTRAST: Iohexol (Omni) 100 mL COMPARISON: 10/28/2017. FINDINGS: LUNG BASES: Negative. ABDOMEN: Subcentimeter liver lesions are too small to characterize but are stable compared to previous study. Normal gallbladder, spleen, adrenals, pancreas, and kidneys. No free air. No mechanical bowel obstruction. Appendix is not visualized with certainty. PELVIS: The uterus is absent. Urinary bladderis poorly distended. No free fluid. MUSCULOSKELETAL: Negative. CONCLUSION: 1. Nonvisualized appendix. 2. No bowel obstruction or free air. No obstructing renal stone. PROCEDURES: none ED COURSE & MEDICAL DECISION MAKING 1:11 AM Patient was seen and examined. Discussed ED plan. 3:12 AM Patient looks good. Abdomen overall is extremely benign with very minimal suprapubic tenderness. Shedenies any vaginal discharge or concerns. She is status post hysterectomy. CT scan is unremarkable. Laboratories normal and urinalysis negative. At this time I feel she can be discharged home to follow-up with family doctor on Tuesday if her symptoms persist. We have sent a blood culture. She does not appear toxic. She does complain of a bit of her migraine at this time. I have no concerns for things like meningitis or encephalitis as the cause of her symptoms. She has not had any vomiting or diarrhea here in the ER. I do not think that this represents ACS, PE, ruptured AAA, aortic dissection, bowelobstruction, bowel ischemia, cholecystitis, pancreatitis, appendicitis, diverticulitis, kidney stone, pyelonephritis, incarcerated or strangulated hernia, ovarian torsion, PID, ectopic , viscus perforation, perforated GI ulcer, or other such etiologies at this time. The patient is aware of all of their results and agrees with the plan for discharge. They understand what to watch for, when toreturn to the ER, and all of their questions have been answered. CONSULTANTS: none MEDICATIONS GIVEN IN THE EMERGENCY: Medications acetaminophen tablet 1,000 mg (TYLENOL) (not administered) sodium chloride 0.9% 1,000 mL (1,000 mL Intravenous New Bag 03/10/18145) ketorolac injection 30 mg (TORADOL) (30 mg Intravenous Given 03/10/18143) ondansetron injection 4 mg (ZOFRAN) (4 mg Intravenous Given 03/10/18145) iohexol 350 mg iodine/mL injection 100 mL (OMNIPAQUE) (100 mL Intravenous Given 03/10/18226) potassium chloride CR tablet 40 mEq (K-DUR,KLOR-CON) (40 mEq Oral Given 03/10/18 0246) PRESCRIPTIONS PROVIDED: New Prescriptions ONDANSETRON (ZOFRAN ODT) 4 MG DISINTEGRATING TABLET Take 1 tablet (4 mg total) by mouth every 8 (eight) hours as needed for nausea. CONDITION: Stable, improving DISPOSITION: D/c home FINAL IMPRESSION 1. Lower abdominal pain 2. Vomiting 3. Hypokalemia I, Dr. Leonides MD, personally performed the services described in this documentation, as scribed byAngelia Keating in my presence, and it is both accurate and complete. Lluvia Coyle MD 03/10/18 0313 documented in this encounter Plan of Treatment Not on filedocumented as of this encounter Procedures Procedure Name Priority Date/Time Associated Comments Diagnosis CT ABDOMEN PELVIS W Routine 03/10/2018 2:24 AM Re sults for this CONTRAST CDT procedure are i n the results section. BLOOD CULTURE STAT 03/10/2018 1:50 AM Results for this CDT procedure are i n the results section. ROUTINE UA WITH STAT 03/10/2018 1:17 AM Result s for this MICROSCOPIC REFLEX TO CDT proced ure are in CULTURE the results section. LIPASE Routine 03/10/2018 12:45 Results for this AM CDT procedure are i n the results section. HEPATIC FUNCTION Routine 03/10/2018 12:45 Results for this PANEL AM CDT procedure are i n the results section. BASIC METABOLIC PANEL Routine 03/10/2018 12:45 Re sults for this AM CDT procedure are i n the results section. CBC WITH PLATELETS Routine 03/10/2018 12:45 Resul ts for this AM CDT procedure are i n the results section. documented in this encounter Results CT Abdomen Pelvis w Contrast (03/10/2018 2:24 AM CDT) Anatomical Region Laterality Modality Abdomen/Pelvis, SUBRAD CT BODY, UMP CT ABDOMEN PELVIS, Computed Tomography RAD CT Specimen (Source) Anatomical Location Collection Method / Collectio n Time Received Time / Laterality Volume Impressions 03/10/2018 2:35 AM CDT CONCLUSION: 1. ??Nonvisualized appendix. 2. ??No bowel obstruction or free air. N o obstructing renal stone. Narrative 03/10/2018 2:[address] ABDOMEN PELVIS WO ORAL W IV CONTRAST 03/10/2018 2:24 AM ? INDICATION: lower abd pain lower abd tram n TECHNIQUE: CT abdomen and pelvis. Multip lanar reformation images (MPR). Dose reduction techniques were used. IV CONTRAST: Iohexol (Omni) 100 mL COMPARISON: 10/28/2017. FINDINGS: LUNG BASES: Negative. ABDOMEN: Subcentimeter liver lesions are too small to characterize but are stable compared to previous study. Normal gallbladder, spleen, adrenals, pancreas, and kidneys. No free air. No mechanical bowel obstruc tion. Appendix is not visualized with certainty. PELVIS: The uterus is absent. Urinary bl adder is poorly distended. No free fluid. MUSCULOSKELETAL: Negative. Procedure Note Memo Gordillo MD - 04/28/2021F ormatting of this note might be different from the original. CT ABDOMEN PELVIS WO ORAL W IV CONTRAST 03/10/2018 2:24 AM INDICATION: lower abd pain lower abd tram n TECHNIQUE: CT abdomen and pelvis. Multip lanar reformation images (MPR). Dose reduction techniques were used. IV CONTRAST: Iohexol (Omni) 100 mL COMPARISON: 10/28/2017. FINDINGS: LUNG BASES: Negative. ABDOMEN: Subcentimeter liver lesions are too small to characterize but are stable compared to previous study. Normal gallbladder, spleen, adrenals, pancreas, and kidneys. No free air. No mechanical bowel obstruc tion. Appendix is not visualized with certainty. PELVIS: The uterus is absent. Urinary bl adder is poorly distended. No free fluid. MUSCULOSKELETAL: Negative. IMPRESSION: CONCLUSION: 1. Nonvisualized appendix. 2. No bowel obstruction or free air. No obstructing renal stone. Lluvia Coyle MD IMG CT ORDERABLES Blood culture (03/10/2018 1:50 AM CDT) [facility] Method Time Signature Anaerobic No Growth No Growth, No 03/15/2018 [facility] Blood Culture organisms 9:31 AM CDT [facility] Bott[facility] seen, chase [facility] returned to LABORATORY instrument, Specimen not received Aerobic Blood No Growth No Growth, No 03/15/2018 [employer] Culture organisms 9:31 AM CDT [facility]. Bottle seen, bottle [facility] returned to LABORATORY instrument, Specimen not received Specimen Anatomical Collection Method Collection Time Receive d Time (Source) Location / / Volume Laterality Blood specimen VAD(CVC, PICC) / 03/10/2018 1:50 AM 8:38 (specimen) Unknown CDT AM CDT Lluvia Coyle MD LAB - MICRO GENERAL ORDERABL ES Performing Organization Address City/State/ZIP Code Phon e Number [place] [address] [place] [id number] [facility]ORY (ABNORMAL) UA with Microscopic reflex to Culture (03/10/2018 1:17 AM CDT) [facility] Method Time Signature Color Urine Yellow Colorless, 03/10/2018 [facility] Yellow, 1:23 AM T [facility] Yellow Appearance Urine Clear Clear 03/10/2018 [facility] 1:23 AM T [facility] Glucose Urine Negative Negative 03/10/2018 [facility] 1:23 AM T [facility] Bilirubin Urine Negative Negative 03/10/2018 [facility] 1:23 AM [facility] Ketones Urine Trace (A) Negative, 03/10/2018 [facility] 60 mg/dL 1:23 AM T [facility] Specific [place] 1.022 1.001 - 03/10/2018 [facility] Urine 1.030 1:23 AM T [facility] Blood Urine Negative Negative 03/10/2018 [facility] 1:23 AM T [facility] pH Urine 6.5 4.5 - 8.0 03/10/2018 [facility] 1:23 AM [facility] Protein Albumin Trace (A) Negative 03/10/2018 [facility] Urine mg/dL 1:23 AM T [facility] Urobilinogen <2.0 <2.0 03/10/2018 [facility] Urine E.U./dL E.U./dL, 1:23 AM CDT [employer] 2.0 E.U./dL [facility] Nitrite Urine Negative Negative 03/10/2018 [facility] 1:23 AM CDT [facility] Leukocyte Negative Negative 03/10/2018 [facility] Esterase Urine 1:23 AM CDT [facility] Bacteria Urine None Seen None Seen 03/10/2018 [facility] hpf 1:23 AM CDT [facility] [facility] RBC Urine 0-2 None Seen, 03/10/2018 [facility] 0-2 hpf 1:23 AM CDT [facility] WBC Urine 0-5 None Seen, 03/10/2018 [facility] 0-5 hpf 1:23 AM CDT [facility] [facility] Squamous 10-25 (A) None Seen, 03/10/2018 [facility] Epithelials 0-5 lpf 1:23 AM CDT [facility] Urine [facility] Mucus Urine Few (A) None Seen 03/10/2018 [facility] lpf 1:23 AM CDT [facility] Specimen Anatomical Collection Method Collection Time Receive d Time (Source) Location / / Volume Laterality Urine specimen Non-blood 03/10/2018 1:17 AM 018 1:17 (specimen) Collection / CDT AM CDT Unknown Narrative N LAB - 03/10/2018 1:23 AM CDT UC not indicated Lluvia Coyle MD LAB - URINE ORDERABLES Performing Organization Address City/State/ZIP Code Phon e Number [facility] [place] [address] [phone] Lab [address] [facility] [address] [place] [address] [facility] LABORATORY [facility] LAB [address] [place] [address], [facility] Lipase (03/10/2018 12:45 AM CDT) athologist Signature Lipase 12 0 - 52 U/L 03/10/2018 [facility] 1:55 AM CDT [facility] LABORATORY Specimen Anatomical Collection Method Collection Time Receive d Time (Source) Location / / Volume Laterality Blood specimen VAD(CVC, PICC) / 03/10/2018 12:45 03/10 (specimen) Unknown AM CDT 12:59 AM CDT Lluvia Coyle MD LAB - BLOOD ORDERABLES Performing Organization Address City/State/ZIP Code Phon e Number [facility] [place] [address] [facility] [address] [place] [address] LABORATORY (ABNORMAL) Hepatic panel (03/10/2018 12:45 AM CDT) [facility] Method Time Signature Bilirubin Total 0.4 0.0 - 1.0 03/10/2018 [facility] mg/dL 1:49 AM CDT [facility] Bilirubin Direct 0.2 <=0.5 03/10/2018 [facility] mg/dL 1:49 AM CDT [facility] Protein Total 8.2 (H) 6.0 - 8.0 03/10/2018 [facility] g/dL 1:49 AM CDT [facility] Albumin 3.9 3.5 - 5.0 03/10/2018 [facility] g/dL 1:49 AM CDT [facility] Alkaline 41 (L) 45 - 120 03/10/2018 [facility] Phosphatase U/L 1:49 AM CDT [facility] AST 22 0 - 40 U/L 03/10/2018 [facility] 1:49 AM CDT [facility] ALT 30 0 - 45 U/L 03/10/2018 [facility] 1:49 AM CDT [facility] Specimen Anatomical Collection Method Collection Time Receive d Time (Source) Location / / Volume Laterality Blood specimen VAD(CVC, PICC) / 03/10/2018 12:45 03/10 (specimen) Unknown AM CDT 12:59 AM CDT Lluvia Coyle MD LAB - BLOOD ORDERABLES Performing Organization Address City/State/ZIP Code Phon e Number [facility] [place] [address] [facility] [address] [place] [address] LABORATORY (ABNORMAL) Basic metabolic panel (03/10/2018 12:45 AM CDT) Analysis Performed At Patho logist Time Signature Sodium 140 136 - 145 03/10/2018 [facility] mmol/L 1:49 AM CDT [facility] Potassium 3.2 (L) 3.5 - 5.0 03/10/2018 [facility] mmol/L 1:49 AM T [facility] Chloride 107 98 - 107 03/10/2018 [facility] mmol/L 1:49 AM [facility] Carbon Dioxide 22 22 - 31 03/10/2018 [facility] (CO2) mmol/L 1:49 AM [facility] Anion Gap 11 5 - 18 03/10/2018 [facility] mmol/L 1:49 AM [facility] Glucose 91 70 - 125 03/10/2018 [facility] mg/dL 1:49 AM [facility] Calcium 9.3 8.5 - 10.5 03/10/2018 [facility] mg/dL 1:49 AM [facility] Urea Nitrogen 13 8 - 22 03/10/2018 [facility] mg/dL 1:49 AM [facility] Creatinine 0.75 0.60 - 03/10/2018 [facility] 1.10 mg/dL 1:49 AM [facility] GFR Estimate If >60 >60 03/10/2018 [facility] Black mL/min/1.7 1:49 AM [place] [address] [facility] GFR Estimate >60 >60 03/10/2018 [facility] mL/min/1.7 1:49 AM [place] [address] [facility] Specimen Anatomical Collection Method Collection Time Receive d Time (Source) Location / / Volume Laterality Blood specimen VAD(CVC, PICC) / 03/10/2018 12:45 03/10 (specimen) Unknown AM CDT 12:59 AM CDT Narrative [facility] - 03/10/2018 1:49 AM CDT Fasting Glucose reference range is 70-99 mg/dL per [place] [employer] (ADA) [employer]. Lluvia Coyle MD LAB - BLOOD ORDERABLES Performing Organization Address City/State/ZIP Code Phon e Number [facility] [place] [address] [phone] Lab [address] [facility] [address] [place] [address] [facility] LABORATORY [facility] LAB [address] [place] [address], [facility] CBC with platelets (03/10/2018 12:45 AM CDT) P athologist Signature WBC 5.1 4.0 - 11.0 03/10/2018 [facility] thou/uL 1:30 AM CDT [facility] RBC Count 3.91 3.80 - 03/10/2018 [facility] 5.40 1:30 AM CDT [facility] LABORATORY Hemoglobin 12.2 12.0 - 03/10/2018 [facility] 16.0 g/dL 1:30 AM CDT [facility] Hematocrit 35.6 35.0 - 03/10/2018 [facility] 47.0 % 1:30 AM CDT [facility] MCV 91 80 - 100 03/10/2018 [facility] fL 1:30 AM CDT [facility] MCH 31.2 27.0 - 03/10/2018 [facility] 34.0 pg 1:30 AM CDT [facility] MCHC 34.3 32.0 - 03/10/2018 [facility] 36.0 g/dL 1:30 AM CDT [facility] RDW 12.8 11.0 - 03/10/2018 [facility] 14.5 % 1:30 AM CDT [facility] Platelet Count 219 140 - 440 03/10/2018 [facility] thou/uL 1:30 AM CDT [facility] Mean Platelet 10.3 8.5 - 12.5 03/10/2018 [facility] Volume fL 1:30 AM CDT [facility] Specimen Anatomical Collection Method Collection Time Receive d Time (Source) Location / / Volume Laterality Blood specimen VAD(CVC, PICC) / 03/10/2018 12:45 03/10 (specimen) Unknown AM CDT 12:59 AM CDT Lluvia Coyle MD LAB - BLOOD ORDERABLES Performing Organization Address City/State/ZIP Code Phon e Number [facility] [place] [address] [facility] [address] [place] [address] LABORATORY documented in this encounter Visit Diagnoses Diagnosis Lower abdominal pain Abdominal pain, other specified site Vomiting Vomiting alone Hypokalemia Hypopotassemia documented in this encounter Additional Health Concerns Assessment Noted Time PHQ-9 Depression Total Score: 19 09/04/2015 7:20 AM CD T documented as of this encounter Care Teams Orthotist Or Prosthetist Relationship Specialty Start Date End Date No Ref-Primary, Physician PCP - General 07/27/15 04/14/20 documented as of this encounter
--- OUTSIDE RECORDS SUMMARY | 2022-08-31 22:24 | XMS_ITS | Encounter Summary ---
:1990 Author Organization [facility] Address [address] [place] [address] Care Team Providers Name Role Phone No Ref-Primary, Physician Primary Care Provider [phone] Encounter Details Date Type Department Care Team Description 12/21/2017 - Hospital Encounter [facility] Holland Thomas Pe lvic pain 12/22/2017 [facility] Bradford Valente [address] [place] [address] [place] [address] 55 25 [id number] [phone] Social History Tobacco Use Types Packs/Day Years [...] - Inhaled Oxygen Concentration - - Weight 69 kg (152 lb 1.6 oz) 12/21/2017 7:17 PM MACHINE TOOL TECHNICIAN INSTRUCTOR Height 170.2 cm (5' 7) 12/20/2017 10:26 AM MACHINE TOOL TECHNICIAN INSTRUCTOR Body Mass Index 23.82 12/20/2017 10:26 AM MACHINE TOOL TECHNICIAN INSTRUCTOR documented in this encounter Discharge Summaries Holland Thomas MD - 12/22/2017 12:20 PM CST HOSPITAL DISCHARGE SUMMARY - SURGERY NAME: Keyla Porter : 1990 PCP: Holland Thomas MD ADMISSION DATE: 12/21/2017 DISCHARGE DATE: 12/22/2017 PRINCIPAL DISCHARGE DIAGNOSIS: S/P Robot assisted laparoscopic hysterectomy, bilateral salpingectomy and cystoscopy PROCEDURES PERFORMED DURING HOSPITALIZATION: Robot assisted laparoscopic hysterectomy, bilateral salpingectomy and cystoscopy CONSULTS: None SIGNIFICANT DIAGNOSTIC STUDIES: None COMPLICATIONS IN HOSPITAL: None BRIEF HISTORY OF PRESENT ILLNESS AND HOSPITAL COURSE: This is a 27 y.o. female admitted for the above. Patient underwent Robot assisted laparoscopic hysterectomy, bilateral salpingectomy and cystoscopy. Patient tolerated the procedure well. Post operativecourse has been unremarkable. On day of discharge, her pain is controlled with current oral medications and is tolerating diet. She is voiding appropriately and is passing gas. LABS: Lab Results Component Value Date HGB 10.4 (L) 12/22/2017 Pre-operative hgb : 12 PENDING LABS: Pathology DISPOSITION: home DISCHARGE CONDITION: Good/Stable DISCHARGE MEDICATIONS: Medication List Unreviewed discharge medications busPIRone 15 MG tablet Dose: 15 mg Commonly known as: BUSPAR 15 mg, Oral, Daily PRN ferrous sulfate 325 (65 FE) MG tablet Dose: 1 tablet 1 tablet, Oral, Weekly, On Wednesdays DISCHARGE PLAN: - Follow up with Dr William WAYNE, in 1-2 weeks - Take medication as prescribed - Physical activity: As tolerated, no heavy lifting. Pelvic rest. - Diet: Regular - Medication: Please see MAR - Warning signs discussed with patient about when to call the clinic/hospital - All questions and concerns were answered for the patient prior to discharge. Holland Thomas MD I saw the patient on the date of discharge Total time spent for discharge on date of discharge: 20 minutes Physician(s) in addition to primary physician who should receive a copy: CC1: Holland Thomas MD ? INE TOOL TECHNICIAN INSTRUCTOR documented in this encounter Medications at Time of Discharge Medication Sig Dispensed Refills Start Date End Date Vit-Fe Take 1 tablet by 0 04/07/201603/2018 Fumarate-FA ( mouth daily COMPLETE) 14-0.4 MG TABS documented as of this encounter Progress Notes Radha Johnson, [facility] - 12/21/2017 9:20 AM CST Pharmacy Note - Admission Medication History Pertinent Provider Information: Prior To Admission (DIRECTORY ASSISTANCE OPERATOR) med list completed and updated in EMR. DIRECTORY ASSISTANCE OPERATOR Med List Medication Sig Last Dose ??? busPIRone (BUSPAR) 15 MG tablet Take 15 mg by mouth daily as needed. ??? ferrous sulfate 325 (65 FE) MG tablet Take 1 tablet by mouth once a week. On Wednesdays12/14/2017 Information source(s): Patient Patient was asked about OTC/herbal products specifically. DIRECTORY ASSISTANCE OPERATOR med list reflects this. Based on the pharmacist???s assessment, the DIRECTORY ASSISTANCE OPERATOR med list information appears reliable Allergies were reviewed, assessed, and updated with the patient. Patient does not use any multi-dose medications prior to admission. Thank you for the opportunity to participate in the care of this patient. Radha Johnson, PharmD 12/21/2017 9:20 AM INE TOOL TECHNICIAN INSTRUCTOR Holland Thomas MD - 12/21/2017 9:10 AM CST RADIOLOGIC TECHNOLOGY TEACHER NOTE Patient is cleared for surgery/anesthesia. Holland Thomas MD INE TOOL TECHNICIAN INSTRUCTOR documented in this encounter H&P Notes Holland Thomas MD - 12/21/2017 8:29 AM CST HISTORY AND PHYSICAL UPDATE I have examined the patient and reviewed the history and physical that is present on this chart. Thechanges in the patient's history and physical condition are as follows: None Holland Thomas MD [facility] Office: [phone] INE TOOL TECHNICIAN INSTRUCTOR documented in this encounter Miscellaneous Notes Op Note - Holland Thomas MD - 12/21/2017 11:02 AM CST Name: Keyla Porter Record # [id number] : 1990 Care Provider: Holland Thomas Admit Date: 12/21/2017 Obstetrics Gynecology - Operative Report DATE OF SERVICE: 12/21/2017 PREOPERATIVE DIAGNOSIS: Endometriosis, pelvic pain, Dysfunctional uterine bleeding and failed conservative management PROCEDURE: Da Soo total laparoscopic hysterectomy, bilateral salpingectomy FINDINGS: Enlarged uterus was noted. Small spots of endometriosis in cul-da-sac. PHYSICIAN: Holland Thomas MD SKETCH LINER: Maru Mayo ESTIMATED BLOOD LOSS: 30 ml ANESTHESIA: General. SPECIMENS REMOVED: Uterus, cervix and bilateral tubes. COMPLICATIONS: None noted. COMMENTS: Keyla Porter was met preoperatively with her where we discussed the procedure and therisks associated with the procedure. She understood these to be, but not limited to injury to adjacent organs including bladder, bowel, ureter, infection and bleeding. Patient signed consent and was brought back to the operating room in stable condition. Patient underwent induction of a general anesthetic, she was carefully prepped and draped for the procedure in sterile fashion. Timeout was performed. Bladder was drained with a Toney catheter, uterinemanipulator placed into the uterus. Attention was turned to the abdomen. An incision was made above the umbilicus. A Veress needle was introduced with a 2 pop technique, saline drop test confirmed adequate placement. Opening pressure was 8. Insufflation was now done until 15mm of pressure were established. An 11/12 nonbladed trocar wasplaced above the umbilicus. Two robotic assist ports were place approximately 9-10 cm lateral to this initial incision. A right upper quadrant 10/11 nonbladed trocar was placed and a right lateral quadrant 5 mm trocar was placed. Trandelenburg assistance was used and the [place] was then brought to the patient???s bedside. The da Soo was then docked. The PK bipolar forceps were placed at the left da Soo port, the monopolar scissors placed in right side of the body and I took my turn to the Spine Wave Soo console. The procedure began with identifying the normal anatomy. The uterus appeared enlarged and was mobile. The tube on the left side was cauterized, transected and removed. The ovarian ligament on the left side was then cauterized and transected. The round ligament on the left side was cauterized and transected creating an anterior and posterior leave of the broad ligament. This was carried out in similarfashion on the right side. The anterior bladder flap was created. The ureter was then identified andits course where it dives under the uterine vasculature. A clip was applied at this junction to the uterine artery. This was repeated on the right side. At this junction, the uterine vasculature on both sides near the uterocervical isthmus were cauterized and transected. This cauterization and transection was continued along the cervix until the level of the cardinal ligament. At this junction anterior colpotomy and posterior colpotomy were performed. The uterus, cervix and tubes were then delivered through the vagina. The vaginal cuff was closed with V-Lock suture. Both angles were elevated to itsipsilateral uterosacral ligament with individual figure-of-8 sutures At this junction, the procedure was complete. Sponge, lap and needle counts were correct x 2. The trocars were removed and the yamileth was removed from the abdomen. The fascia was closed with umbilical and upper right quadrant port with 0 Vicryl. Skin was closed with nylon. Steri-Strips applied. She was brought to the recovery in stable condition. Holland Thomas Cc: Holland Thomas MD INE TOOL TECHNICIAN INSTRUCTOR documented in this encounter Plan of Treatment Not on filedocumented as of this encounter Procedures Procedure Name Priority Date/Time Associated Comments Diagnosis CROSSMATCH RED CELLS Routine 12/24/2017 12:02 Res ults for this AM MACHINE TOOL TECHNICIAN INSTRUCTOR procedure are i n the results section. CROSSMATCH RED CELLS Routine 12/24/2017 12:01 Res ults for this AM MACHINE TOOL TECHNICIAN INSTRUCTOR procedure are i n the results section. LAB RESULT - HIM SCAN 12/22/2017 10:46 AM MACHINE TOOL TECHNICIAN INSTRUCTOR EXTRA RED TOP TUBE Routine 12/22/2017 6:38 AM MACHINE TOOL TECHNICIAN INSTRUCTOR HEMOGLOBIN Routine 12/22/2017 6:37 AM Results f or this MACHINE TOOL TECHNICIAN INSTRUCTOR procedure are i n the results section. SURGICAL PATHOLOGY Routine 12/21/2017 10:20 Resul ts for this EXAM AM MACHINE TOOL TECHNICIAN INSTRUCTOR procedure are i n the results section. US IMAGING - HIM SCAN 12/21/2017 HCG QUALITATIVE URINE Routine 12/20/2017 9:50 AM Results for this MACHINE TOOL TECHNICIAN INSTRUCTOR procedure are i n the results section. TYPE AND SCREEN, Routine 12/20/2017 9:45 AM Resul ts for this ADULT MACHINE TOOL TECHNICIAN INSTRUCTOR procedure are i n the results section. ANTIBODY SCREEN Routine 12/20/2017 9:45 AM Result s for this ([facility]) MACHINE TOOL TECHNICIAN INSTRUCTOR procedure are i n the results section. documented in this encounter Results Crossmatch red cells (12/24/2017 12:02 AM MACHINE TOOL TECHNICIAN INSTRUCTOR) [facility] [employer] Method Time Signature Crossmatch COMPATIBLE 12/24/2017 BLOODBANK 12:02 AM MACHINE TOOL TECHNICIAN INSTRUCTOR BLOOD [id number] 12/24/2017 JN BLOODBANK EXPIRATION 12:02 AM DATE MACHINE TOOL TECHNICIAN INSTRUCTOR Unit ABO/RH A Pos 12/24/2017 JN BLOODBANK 12:02 AM MACHINE TOOL TECHNICIAN INSTRUCTOR Unit Number [id number] 12/24/2017 BLOODBANK 12:02 AM MACHINE TOOL TECHNICIAN INSTRUCTOR Status Released 12/24/2017 BLOODBANK 12:02 AM MACHINE TOOL TECHNICIAN INSTRUCTOR Component Red Blood Cells 12/24/2017 BLOODBANK 12:02 AM MACHINE TOOL TECHNICIAN INSTRUCTOR Product Code [id number] 12/24/2017 BLOODBANK 12:02 AM MACHINE TOOL TECHNICIAN INSTRUCTOR BLOOD TYPE 6200 12/24/2017 BLOODBANK 12:02 AM MACHINE TOOL TECHNICIAN INSTRUCTOR CODING SYSTEM [id number] 12/24/2017 BLOODBANK 12:02 AM MACHINE TOOL TECHNICIAN INSTRUCTOR Specimen (Source) Anatomical Location Collection Method / Collectio n Time Received Time / Laterality Volume Rosa Canseco PA-C LAB - BLOOD BANK PRODUCT ORD ER Performing Organization Address City/State/ZIP Code Phon e Number [facility] BLOOD BANK [address] [place] [address] BLOODBANK [address] [place] [address] Crossmatch red cells (12/24/2017 12:01 AM MACHINE TOOL TECHNICIAN INSTRUCTOR) [facility] [employer] Method Time Signature Crossmatch COMPATIBLE 12/24/2017 BLOODBANK 12:01 AM MACHINE TOOL TECHNICIAN INSTRUCTOR BLOOD [id number] 12/24/2017 BLOODBANK EXPIRATION 12:01 AM DATE MACHINE TOOL TECHNICIAN INSTRUCTOR Unit ABO/RH A Pos 12/24/2017 BLOODBANK 12:01 AM MACHINE TOOL TECHNICIAN INSTRUCTOR Unit Number [id number] 12/24/2017 BLOODBANK 12:01 AM MACHINE TOOL TECHNICIAN INSTRUCTOR Status Released 12/24/2017 BLOODBANK 12:01 AM MACHINE TOOL TECHNICIAN INSTRUCTOR Component Red Blood Cells 12/24/2017 BLOODBANK 12:01 AM MACHINE TOOL TECHNICIAN INSTRUCTOR Product Code [id number] 12/24/2017 BLOODBANK 12:01 AM MACHINE TOOL TECHNICIAN INSTRUCTOR BLOOD TYPE 6200 12/24/2017 BLOODBANK 12:01 AM MACHINE TOOL TECHNICIAN INSTRUCTOR CODING SYSTEM [id number] 12/24/2017 BLOODBANK 12:01 AM MACHINE TOOL TECHNICIAN INSTRUCTOR Specimen (Source) Anatomical Location Collection Method / Collectio n Time Received Time / Laterality Volume Rosa Canseco PA-C LAB - BLOOD BANK PRODUCT ORD ER Performing Organization Address City/[facility]/ZIP [facility] Phon e Number [facility] BLOOD BANK [address] [place] [address] BLOODBANK [address] [place] [address] LAB RESULT - HIM SCAN (12/22/2017 10:46 AM MACHINE TOOL TECHNICIAN INSTRUCTOR) Specimen (Source) Anatomical Location Collection Method / Collectio n Time Received Time / Laterality Volume Narrative This result has an attachment that is no t available. Historical Provider NON-BEAKER LAB TESTING EXTRA RED TOP TUBE (12/22/2017 6:38 AM MACHINE TOOL TECHNICIAN INSTRUCTOR) Specimen Anatomical Collection Method / Collection Time Recei cooper Time (Source) Location / Volume Laterality Blood specimen Venipuncture / 12/22/2017 6:38 12/22/19 18 7:15 (specimen) Unknown AM MACHINE TOOL TECHNICIAN INSTRUCTOR AM MACHINE TOOL TECHNICIAN INSTRUCTOR Holland Thomas MD LAB - BLOOD ORDERABLES (ABNORMAL) Hemoglobin (12/22/2017 6:37 AM MACHINE TOOL TECHNICIAN INSTRUCTOR) athologist Signature Hemoglobin 10.4 (L) 12.0 - 12/22/2017 [facility] 16.0 g/dL 6:56 AM MACHINE TOOL TECHNICIAN INSTRUCTOR [facility] LABORATORY Specimen Anatomical Collection Method / Collection Time Recei cooper Time (Source) Location / Volume Laterality Blood specimen Venipuncture / 12/22/2017 6:37 12/22/19 18 6:51 (specimen) Unknown AM MACHINE TOOL TECHNICIAN INSTRUCTOR AM MACHINE TOOL TECHNICIAN INSTRUCTOR Holland Thomas MD LAB - BLOOD ORDERABLES Performing Organization Address City/[facility]/ZIP Code Phon e Number [facility] LABORATORY [facility] [place] [address] [address] [facility] [address] [place] [address] LABORATORY Surgical Pathology Exam (12/21/2017 10:20 AM MACHINE TOOL TECHNICIAN INSTRUCTOR) [facility] Method Time Signature Case Report Surgical Pathology ?Case: [id number] ? 12/22/2017 [facility] Authorizing Provider: ??Jody Thomas MD ?Collected: ? 12/21/2017 1020 ? 10:46 AM [facility] Ordering Location: ? [facility] OR ? Received: ?12/21/2017 1203 ? MACHINE TOOL TECHNICIAN INSTRUCTOR [facility] Pathologist: ? Renetta Wen MD ? LABORATORY Specimen: ?Uterus, Cervi x, Bilateral Fallopian Tubes ? Final UTERUS, CERVIX AND BILATERAL FALLOPIAN TUBES, ROBOTC TOTAL LAPAROSCOPIC HYSTERECTOMY AND BILATERAL SALPINGECTOMY: 12/22/2017 [facility] Diagnosis ??1) ??MID SECRETORY ENDOME TRIUM; NO EVIDENCE OF ENDOMETRIAL HYPERPLASIA, CYTOLOGIC 10:46 AM [facility] ? ATYPICAL OR MALIGNANCY [facility] ??2) ??BENIGN ENDOMETRIAL POLYP (6 MM) LABORATORY ??3) ??UNREMARKABLE MYOMETRIUM AND UTERINE SEROSA ??4) ??BENIGN HYDATID CYSTS OF MORGAGNI; OTHERWISE UNREMARKABLE BILATERAL FALLOPIAN TUBES ??5) ??HYPERKERATOSIS OF EC TOCERVIX AND DIFFUSE SQUAMOUS METAPLASIA OF ENDOCERVIX; ? NO EVIDENCE OF CERVICAL DYSPLASIA Microscopic Microscopic 12/22/2017 [facility] Description examination 10:46 AM LIN. performed, [facility] substantiating LABORATORY the above diagnosis. Clinical Pre-op Diagnosis: ??Pelvic p ain in female [R10.2] Endometriosis of pelvis [N80.3] 12/22/2017 [facility] Information Time Placed in Formalin: ??10:52 am 10 :46 AM LIN. [facility] LABORATORY Gross Received in formalin labeled with the patient's name and uterus, cervix, bilateral fallopian tubes, is a 110-gram, 8.3 cm in length, 4.6 cm in fundic width, 4.2 cm in A-P diameter uterus with attached l 0 12/22/2017 [facility] Description eft fallopian tube and accom panying, detached right fallopian tube. The ectocervix is crump-pink to red, mottled, congested and glistening. Opening displays a crump-pink, congested and glistening endocervic 10:46 AM CINDI-. al canal. No suspicious muco paramjit lesions are identified. The 3.3 x 2.1 cm endometrial cavity displays a sessile 0.6 x 0.4 x 0.2 cm, pink-red, mottled mucosal polyp on the mid posterior wall. This polyp i [facility] s submitted in its entirety in block 4 along with additional posterior endometrium. The remaining endometrium is pink-red, congested, glistening and averages 0.2 cm in thickness. The 1.7 cm in average t LABORATORY hickness myometrium has a gr ossly unremarkable cut surface. The serosa is crump- pink, smooth and glistening with minimal adherent dark red blood clot. The bilateral fallopian tubes average 3.3 x 0.5 cm. The left side has a 0.3 cm, smooth-lined paratubal cyst and the right side has a 0.6 cm, smooth-lined paratubal cyst. No excrescences are identified and each fallopian tube has a grossly unremarkable cut surface. ??RS-6C SUMMARY OF CASSETTES: 1) Ant erior cervix; 2) Posterior cervix; 3) Anterior endomyometrium; 4) Posterior endomyometrium to include polyp in its entirety; 5) Serosa; 6) Bilateral fallopian tubes to include each of the paratubal cysts RJR:sg Charges CPT: ??95249 12/22/2017 [facility] ICD-10: ??N84.0 10:46 AM [facility] LABORATORY Result Flag Normal 12/22/2017 [facility] 10:46 AM [facility] LABORATORY Comment: SPECIMEN PROCESSING: All histology slide preparation and stai ns; and cytology slide preparation, staining, and progress developer screening done at [facility] are performed at [facility], [address] [place] [address], [id number], with final interpretatio n, frozen section analysis, and cytology adequacy assessment at indicated laboratory. Specimen Anatomical Collection Method Collection Time Receive d Time (Source) Location / / Volume Laterality Tissue specimen UTERUS AND 12/21/2017 10:20 12/21/19 18 (specimen) FALLOPIAN TUBES, AM MACHINE TOOL TECHNICIAN INSTRUCTOR 12:03 PM CS T CS / Unknown Holland Thomas MD [facility] Performing Organization Address City/State/ZIP Code Phon e Number [facility] LABORATORY [facility] [place] [address] [address] [facility] [address] [place] [address] LABORATORY US IMAGING - HIM SCAN (12/21/2017) Anatomical Region Laterality Modality Other Specimen (Source) Anatomical Location Collection Method / Collectio n Time Received Time / Laterality Volume Narrative This result has an attachment that is no t available. Historical Provider IMG US ORDERABLES HCG qualitative urine (12/20/2017 9:50 AM MACHINE TOOL TECHNICIAN INSTRUCTOR) [facility] gist Method Time Signature hCG Urine Negative Negative 12/20/2017 [facility] Qualitative 9:58 AM MACHINE TOOL TECHNICIAN INSTRUCTOR [facility] LABORATORY Specific 1.020 1.001 - 12/20/2017 [facility] [place] Urine 1.030 9:58 AM [facility] LABOR[facility] Specimen Anatomical Collection Method Collection Time Receive d Time (Source) Location / / Volume Laterality Urine specimen Non-blood 12/20/2017 9:50 AM 018 9:50 (specimen) Collection / MACHINE TOOL TECHNICIAN INSTRUCTOR AM MACHINE TOOL TECHNICIAN INSTRUCTOR Unknown Narrative [facility] - 12/20/2017 9:58 AM MACHINE TOOL TECHNICIAN INSTRUCTOR This test is for screening purposes. Res ults should be interpreted along with the clinical picture. Confirmation testing i s available if warranted by ordering Test 143, Beta HCG, Quantitative. Rosa Canseco PA-C LAB - URINE ORDERABLES Performing Organization Address [facility] Phon e Number [facility] [place] [address] Lab [address] [facility] [address] [place] [address] [facility] N LAB [address] [place] [address], [facility] Antibody Screen ([employer]) (12/20/2017 9:45 AM MACHINE TOOL TECHNICIAN INSTRUCTOR) athologist Signature Antibody Screen NEG Negative 12/20/2017 BLOOD BANK 1:50 PM MACHINE TOOL TECHNICIAN INSTRUCTOR Specimen Anatomical Collection Method / Collection Time Recei cooper Time (Source) Location / Volume Laterality Blood specimen Venipuncture / 12/20/2017 9:45 12/20/19 18 9:47 (specimen) Unknown AM MACHINE TOOL TECHNICIAN INSTRUCTOR AM MACHINE TOOL TECHNICIAN INSTRUCTOR Rosa Canseco PA-C LAB - [facility] Performing Organization Address [facility] Phon e Number [facility] BLOOD BANK [address] [place] [address] BLOOD BANK [address] [place] [address] TYPE AND SCREEN, ADULT (12/20/2017 9:45 AM MACHINE TOOL TECHNICIAN INSTRUCTOR) athologist Signature ABO/RH(D) A POS 12/20/2017 1:50 BLOOD BANK PM MACHINE TOOL TECHNICIAN INSTRUCTOR Specimen Anatomical Collection Method / Collection Time Recei cooper Time (Source) Location / Volume Laterality Blood specimen Venipuncture / 12/20/2017 9:45 12/20/19 18 9:47 (specimen) Unknown AM MACHINE TOOL TECHNICIAN INSTRUCTOR AM MACHINE TOOL TECHNICIAN INSTRUCTOR Rosa Canseco PA-C LAB - BLOOD BANK TEST ORDER Performing Organization Address [facility] Phon e Number [facility] BLOOD BANK [address] [facility] [place] [address] BLOOD BANK [address] [place] [address] documented in this encounter Visit Diagnoses Diagnosis Pelvic pain Unspecified symptom associated with fema le genital organs documented in this encounter Additional Health Concerns Assessment Noted Time PHQ-9 Depression Total Score: 19 09/04/2015 7:20 AM CD T documented as of this encounter Care Teams Lead Based Paint Technician Relationship Specialty Start Date End Date No Ref-Primary, Physician PCP - General 07/27/15 04/14/20 documented as of this encounter
--- OUTSIDE RECORDS SUMMARY | 2022-08-31 22:24 | XMS_ITS | Encounter Summary ---
:1990 Author Organization [place] Address [facility] [place] [address] Care Team Providers Name Role Phone No Ref-Primary, Physician Primary Care Provider [phone] Reason for Visit Reason Comments Imm/Inj Encounter Details Date Type Department Care Team Description 03/30/2019 Hospital Encounter [facility] Néstor Chery L umbar spine pain; Spine and DO Annular disc tear Neurosurgery [address]ine [address] [place] [id number] [phone] Social History Tobacco Use Types Packs/Day Years [...] - Inhaled Oxygen Concentration - - Weight 72.8 kg (160 lb 9.6 oz) 03/30/2019 11:06 AM CDT Height - - Body Mass Index 25.15 03/21/2019 9:09 AM CDT documented in this encounter Medications at [...] with anxiety documented as of this encounter Miscellaneous Notes Patient Instructions - Aung Palma - 03/30/2019 10:36 AM CDT Follow-up visit with Dr. Chery in 2-4 weeks to discuss injection outcome and determine care plan going forward. DISCHARGE INSTRUCTIONS During office hours (8:00 a.m.- 4:30 p.m.) questions or concerns may be answered by calling Spine Navigation Nurses at [phone]. If you experience any problems after hours please call [phone] and you will be connected to [facility]. All Patients: ? You may experience an increase in your symptoms for the first 2 days (It may take anywhere between2 days- 2 weeks for the steroid to have maximum effect). ? You may use ice on the injection site, as frequently as 20 minutes each hour if needed. ? You may take your pain medicine. ? You may continue taking your regular medication after your injection. If you have had a Medial Branch Block you may resume pain medication once your pain diary is completed. ? You may shower. No swimming, tub bath or hot tub for 48 hours. You may remove your bandaid/bandageas soon as you are home. ? You may resume light activities, as tolerated. ? Resume your usual diet as tolerated. ? It is strongly advised that you do not drive for 1-3 hours post injection. ? If you have had oral sedation: Do not drive for 8 hours post injection. ? If you have had IV sedation: Do not drive for 24 hours post injection. Do not operate hazardous machinery or make important personal/business decisions for 24 hours. POSSIBLE STEROID SIDE EFFECTS (If steroid/cortisone was used for your procedure) -If you experience these symptoms, it should only last for a short period ?? Swelling of the legs ?? Skin redness (flushing) ?? Mouth (oral) irritation ?? Blood sugar (glucose) levels ?? Sweats ?? Mood changes ?? Headache ?? Sleeplessness POSSIBLE PROCEDURE SIDE EFFECTS -Call the Spine Center if you are concerned ?? Increased Pain ?? Increased numbness/tingling ?? Nausea/Vomiting ?? Bruising/bleeding at site ?? Redness or swelling ?? Difficulty walking ?? Weakness ?? Fever greater than 100.5 *In the event of a severe headache after an epidural steroid injection that is relieved by lying down, please call the [facility] to speak with a clinical staff member* documented in this encounter Plan of Treatment Not on filedocumented as of this encounter Procedures Procedure Name Priority Date/Time Associated Diagnosis Comme nts PAIN TFESI LUMBAR Routine 03/30/2019 11:58 AM Lumbar spi ne pain Results for this SACRAL ONE LEVEL CDT Annular disc tear proced ure are in BILATERAL the results section. documented in this encounter Results PAIN TFESI Lumbar Sacral One Level Bilateral (03/30/2019 11:58 AM CDT) Anatomical Region Laterality Modality PAIN/SPINE Radiographic Imaging Specimen (Source) Anatomical Location Collection Method / Collectio n Time Received Time / Laterality Volume Narrative 03/30/2019 12:11 PM CDT LUMBAR EPIDURAL STEROID INJECTION TRANSFORAMINAL APPROACH WITH FLUOROSCOPIC GUIDANCE Performed on: 03/30/19 Pre Procedure Diagnosis: ??LBP, Lumbar r adiculitis Post Procedure Diagnosis: ??Same Procedure Performed: ??Lumbar Transforam inal Epidural Steroid Injection with Fluoroscopic Guidance Clinical Scenario: ??As per office notes Anesthesia/Fluids: ??As per intra-proced ure documentation Vital Signs: ??As per intra-procedure do cumentation Level Injected: ??L4-L5 Side Injected: Bilateral CC: Keyla Porter ??is a 28 year-old fem mazin who presents today for a bilateral L4-5 transforminal epidural steroid injections as ordered by Dr. Chery. ??The patient complains of back and leg pain. ??T he patient's MRI is reviewed and shows f oraminal narrowing at L4-5 bilaterally. ??The pat ient would like to proceed with the injection today. The patient denies any symptoms of an ac tive infection and denies taking antibiotics. The patient denies taking any prescription blood thinning medications. The patient denies any allergies to iodine or iodine contrast. ?? The patient has had other conservative t reatment but wishes to pursue spine injections. ??The procedure of lumbar transforaminal epidural steroid injection was discussed in detail, using a spine model t o demonstrate. ??The patient had the opp ortunity to directly ask the physician questions reg arding the procedure and the questions were answered prior to the consent form being presented. ??The risks of the procedure, including but not limited to: ??Back pain/soreness, infection, bleeding, per manent, nerve damage/injury, epidural hematoma (with t he need for surgical evaluation), paralysis, allergic reaction, ??worsening of back/leg pain or no change in pain. The patient elected to proceed and signed informed consent. ?? The patient was placed in a prone positi on on the fluoroscopy table. ??A procedure pause was performed to verify the patient's identity, site, and side of the procedure. ?The lower back was prepped and draped in usual fashion. ??After ane sthetizing the skin with 1% lidocaine, a 3.5, 22 gauge needle was introduced at the rightL4 pedicle under fluoroscopic guidance. ??After aspiration was negative for blood or CSF, 1 mL of Omnipaque-300 was injected. ? ?An epidural flow pattern without vascul ar uptake was seen. ?? Subsequently, 1 mL of 1% lidoca ine was injected on the right side. ??After waiting 2 minutes the patient sensation and muscle strength was tested and found to have no substantial change in stre ngth or sensation. ??Then 1 mL 10 mg of dexamethasone was slowly injected on the right side. ? ?The exact same procedure was repeated on the left side with with a test dose of 1 mL of 1% lidocaine, followed by a 1 mL 10 mg of dexamethasone was injected epidural flow pattern was seen. PRE-PROCEDURE PAIN SCORE: 8/10 POST-PROCEDURE PAIN SCORE: ??5/10 The patient tolerated the procedure wel l. ??After a short period of observation the patient was discharged under their own power. ?? The patient was instructed to call the Spine Clinic if any questions /concerns arise after the procedure. ??P atient will follow-up with Dr. Chery in 2 to 4 wee ks. Procedure Note Paramjit Jacobson, - 06/05/2021Form atting of this note might be different from the original. LUMBAR EPIDURAL STEROID INJECTION TRANSF ORAMINAL APPROACH WITH FLUOROSCOPIC GUIDANCE Performed on: 03/30/19 Pre Procedure Diagnosis: LBP, Lumbar rad iculitis Post Procedure Diagnosis: Same Procedure Performed: Lumbar Transforamin al Epidural Steroid Injection with Fluoroscopic Guidance Clinical Scenario: As per office notes Anesthesia/Fluids: As per intra-procedur e documentation Vital Signs: As per intra-procedure docu mentation Level Injected: L4-L5 Side Injected: Bilateral CC: Keyla Porter is a 28 year-old femal e who presents today for a bilateral L4- 5 transforminal epidural steroid injections as ordered by Dr. Chery. The patient complains of back and leg pain. The patient's MRI is reviewed and shows foraminal narrowing at L4-5 bilaterally. The patie nt would like to proceed with the injection today. The patient denies any symptoms of an ac tive infection and denies taking antibiotics. The patient denies taking any prescription blood thinning medications. The patient denies any allergies to iodine or iodine contrast. The patient has had other conservative t reatment but wishes to pursue spine injections. The procedure of lumbar transforaminal epidural steroid injection was discussed in detail, using a spine model to demonstrate. The patient had the opportunity to directly ask the physician questions reg arding the procedure and the questions were answered prior to the consent form being presented. The risks of the procedure, including but not limited to: Back pain/soreness, infection, bleeding, permanent, nerve damage/injury, epidural hematoma (with t he need for surgical evaluation), paralysis, allergic reaction, worsening of back/leg pain or no change in pain. The patient elected to proceed and signed informed consent. The patient was placed in a prone positi on on the fluoroscopy table. A procedure pause was performed to verify the patient's identity, site, and side of the procedure. The lower back was prepped and draped in usual fashion. After anesthetizing the skin with 1% lidocaine, a 3.5, 22 gauge needle was introduced at the rightL4 pedicle under fluoroscopic guidance. After aspiration was negative for blood or CSF, 1 mL of Omnipaque-300 was injected. An epidural flow pattern without vascular u ptake was seen. Subsequently, 1 mL of 1% lidocaine was injected on the right side. After waiting 2 minutes the patient sensation and muscle strength was tested and found to have no substantial change in strength or sensation. Then 1 mL 10 mg of dexamethasone was slowly injected on the right side. T he exact same procedure was repeated on the left side with with a test dose of 1 mL of 1% lidocaine, followed by a 1 mL 10 mg of dexamethasone was injected epidural flow pattern was seen. PRE-PROCEDURE PAIN SCORE: 8/10 POST-PROCEDURE PAIN SCORE: 5/10 The patient tolerated the procedure wel l. After a short period of observation the patient was discharged under their own power. The patient was instructed to call the Spine Clinic if any questions/concerns arise after the procedure. Patient will follow-up with Dr. Chery in 2 to 4 we ks. Néstor Chery DO IMG PAIN MANAGEMENT ORDERABL ES documented in this encounter Visit Diagnoses Diagnosis Lumbar spine pain Lumbago Annular disc tear Other and unspecified disc disorder of u nspecified region documented in this encounter Additional Health Concerns Assessment Noted Time PHQ-9 Depression Total Score: 19 09/04/2015 7:20 AM CD T documented as of this encounter Care Teams Financial Reporting Specialist Relationship Specialty Start Date End Date No Ref-Primary, Physician PCP - General 07/27/15 04/14/20 documented as of this encounter
--- OUTSIDE RECORDS SUMMARY | 2022-08-31 22:24 | XMS_ITS | Encounter Summary ---
:1990 Author Organization [place] Address [address] [place] [id number] Care Team Providers Name Role Phone No Ref-Primary, Physician Primary Care Provider [phone] Reason for Visit Reason Comments Follow Up Back Pain Leg Pain Encounter Details Date Type Department Care Team Description 03/21/2019 Hospital Encounter [facility] Néstor Chery L umbar spine pain; Spine and DO Annular disc tear; Neurosurgery [address] Bulging lumbar disc; [address] [place] [facility] Myofasci al pain; [address] Center Sacro[place]ac [place] [id number] [phone] Social History Tobacco Use Types Packs/Day Years [...] - - Weight 72.6 kg (160 lb) 03/21/2019 9:09 AM CDT Height 170.2 cm (5' 7) 03/21/2019 9:09 AM CDT Body Mass Index 25.06 03/21/2019 9:09 AM CDT documented in this [...] documented as of this encounter Progress Notes Néstor Chery, DO - 03/21/2019 9:00 AM CDT Assessment/Plan: Diagnoses and all orders for this visit: Lumbar spine pain - OPS TFESI Lumbar Bilateral; Future; Expected date: 03/21/2019 Annular disc tear - OPS TFESI Lumbar Bilateral; Future; Expected date: 03/21/2019 Bulging lumbar disc Myofascial pain Sacroiliac joint pain Assessment: Pleasant 28 y.o. female with a history of depression anxiety with: 1. Persistent severe low back pain for a month with increase in between. This is now lumbar spine with left greater than right lower extremity paresthesias. She has disc bulging at L4-503-4 and L5-S1. At L4-5 there is a large annular tear that I suspect is causing her increased low back pain. 2. Myofascial pain lumbar spine 3. Left sacroiliac joint pain. May be compensatory I believe most of the pain is related to lumbar disc annular tear. 4. Poor sleep related to pain improved with gabapentin Discussion: 1. We discussed her progress with physical therapy along with medication options interventions and other treatments. I do not believe she is surgical at this point and she wants to avoid surgery. 2. I highly recommend that she make further appointments with physical therapy. Has been to one visit and doing home exercises however PT because increase in pain afterwards and when she got home and Anant not believe she would tolerate much in the way of therapy at this point with regards to aggressive exercises nor does she. I would like her to at least schedule a few more visits. 3. Recommend bilateral L4-5 transforaminal epidural steroid injections to treat the annular tear related pain. Dr. Jacobson 4. Continue nabumetone as needed. 5. Continue gabapentin as this is helpful with sleep. 6. Follow-up with me or Paola Narayanan 2 to 4 weeks after injection It was our pleasure caring for your patient today, if there any questions or concerns please do not hesitate to contact us. Subjective: Patient ID: Keyla Porter is a 28 y.o. female. History of Present Illness: Patient presents for follow-up of low back pain. This is increased and changed some since her last visit with me but not since with Paola Narayanan. I last saw her 1 week after pain started physical therapy completed her Medrol Dosepak started gabapentin and nabumetone. Nabumetone has been helpful somewhat intermittently but trying to avoid this as it can be bothersome on her stomach after a while. Gabapentin is helpful with sleep. After seeing me she then had her daughter jumped on her back and had severe increase in pain was seen by [place] Narayanan who provided a few oxycodone which caused some issues with patient's mood she does not tolerate these well. MRI was ordered at that time we did review that today. Her pain persists across lumbosacral junction but now is changed since see me initially with left leg paresthesias posterioranterior left thigh wrapping around the thigh as well as the left calcaneus. Constant numbness. Painis a 10/10 at worst 8/10 today 3/10 at best. Worse with any movements or standing for too long. Physical therapy exercises also increased pain. She went to one visit of therapy which flared her pain does home exercises but also makes it harder for her to take care of her daughter given increased pain.Seems to be better with changing positions or lying down or sitting. Imaging: MRI report and images were personally reviewed and discussed with the patient. A plastic model was utilized during the discussion. MRI of the lumbar spine personally reviewed. This shows degenerative disc disease L3-4 L4-5 L5-S1. Small annular tear at L3-4. Larger annular tear at L4-5. On my review this appears more acute with a significant high intensity zone. Central bulge. L5-S1 shallow bulge mildnarrowing of the right lateral recess. Mild to moderate right foraminal stenosis. Review of Systems: Has numbness tingling in the left leg. Feels weak in the back and leg. Has headaches worst pain at night. No bowel or bladder incontinence. No balance changes swallowing difficultiescoordination problems fevers or weight loss. Past Medical History: Diagnosis Date ??? Abnormal [...] infection ??? Varicella twice as a child The following portions of the patient's history were reviewed and updated as appropriate: allergies,current medications, past family history, past medical history, past social history, past surgical history and problem list. Objective: Physical Exam: Vitals: 03/21/19 0909 BP: 112/63 Pulse: 66 General: Alert and oriented with normal affect. Attention, knowledge, memory, and language are intact. No acute distress. Eyes: Sclerae are clear. Respirations: Unlabored. CV: No lower extremity edema. Gait: Nonantalgic, cautious Tenderness to palpation lumbar paraspinals gluteal tissues left SI joint. Sensation is intact to light touch throughout the lower extremities. Reflexes are 2+ patellar and Achilles with downgoing toes. Low back pain with Frank's on the right with negative thigh thrust on the right. Significant positive thigh thrust on the left. Positive Frank's test on the left for SI pain. Although she has positive straight leg raise on the left does not improve with bending/flexing the knee. Not likely radicular. Manual muscle testing reveals: Some giveaway to pain left lower extremity Right /Left out of 5 5/5 hip flexors 5/5 knee flexors 5/5 knee extensors 5/5 ankle plantar flexors 5/5 ankle dorsiflexors 5/5 EHL documented in this encounter Miscellaneous Notes Patient Instructions - HE - Néstor Chery DO - 03/21/2019 9:00 AM CDT 1. Continue with PT. Schedule 4-6 more visits documented in this encounter Plan of Treatment Not on filedocumented as of this encounter Visit Diagnoses Diagnosis Lumbar spine pain Lumbago Annular disc tear Other and unspecified disc disorder of u nspecified region Bulging lumbar disc Displacement of lumbar intervertebral di sc without myelopathy Myofascial pain Mylagia and myositis, unspecified Sacroiliac joint pain Disorders of sacrum documented in this encounter Additional Health Concerns Assessment Noted Time PHQ-9 Depression Total Score: 19 09/04/2015 7:20 AM CD T documented as of this encounter Care Teams Gusset Maker Relationship Specialty Start Date End Date No Ref-Primary, Physician PCP - General 07/27/15 04/14/20 documented as of this encounter
--- OUTSIDE RECORDS SUMMARY | 2022-08-31 22:24 | XMS_ITS | Encounter Summary ---
:1990 Author Organization [place] Address [address] [place] [id number] Care Team Providers Name Role Phone No Ref-Primary, Physician Primary Care Provider [phone] Holland Thomas MD Primary Care Provider [phone] Encounter Details Date Type Department Care Team Description 03/07/2019 Office Visit - [facility] Provider, Lumbar s pine pain; [facility] Rehabilitation Historical Lumbar radicu lar pain; Services [place] [facility] [address] [place] [phone] Social History Tobacco Use Types Packs/Day Years Used Date Smoking Tobacco: Every Day Cigarettes 0.1 Smokeless Tobacco: Never Comments: smoking 10cig/day- down to 1-2 with Alcohol Use Standard Drinks/Week Comments Yes 0 (1 standard drink = 0.6 oz pure alcoho l) 3 times a month Sex Assigned at Date Recorded Not on file documented as of this encounter Progress Notes Historical Provider - 03/07/2019 3:30 PM CDT [facility] Lumbo-Pelvic/Cervico-Thoracic Initial Evaluation Patient Name: Keyla Porter Date of evaluation: 03/07/2019 Referral Diagnosis: Lumbar spine pain [M54.5] ??- Primary Lumbar radicular pain [M54.16] Myofascial pain [M79.18] MEDX Referring provider: Néstor Chery, DO Visit Diagnosis: ICD-10-CM 1. Lumbar spine pain M54.5 2. Lumbar radicular pain M54.16 3. Myofascial pain M79.18 Assessment: Keyla Porter is a 28 y.o. female with PMH significant for depression, anxiety who presents to therapy today with chief complaints of acute right sided back pain with right radicular sx since February2019. Sx have improved already, and she is reporting radicular pain only into the mid thigh and backof the thigh. No pains down into her lower leg or foot, intermittent numbness. Lumbar ROM very guarded and still having intermittent muscle spasms. Sx do centralize some with Jory prone on elbows. SLUMP/SLR are + on the R, no crossover sign. Pt would benefit from skilled PT to address the above limitations POC and pathology of condition were reviewed with patient. Pt. is in agreement with the Plan of Care A Home Exercise Program (HEP) was initiated today. Pt. was instructed in exercises by PT and patient was given a handout with detailed instructions. Goals: Pt. will demonstrate/verbalize independence in self-management of condition in : 4 weeks Pt. will be independent with home exercise program in : 4 weeks Pt will: demostrate full lumbar ROM without pain or radicular sx in 4 weeks Pt will: report standing to prepare meals without using a stool or increased pain in 4 weeks Pt will: sleep through the night without pain in 4 weeks Patient's expectations/goals are realistic. Barriers to Learning or Achieving Goals: No Barriers. Plan / Patient Instructions: Plan of Care: Authorization / Certification Start Date: 03/07/19 Authorization / Certification End Date: 05/07/19 Authorization / Certification Number of Visits: 6 Communication with: Referral Source Patient Related Instruction: Nature of Condition;Treatment plan and rationale;Self Care instruction;Basis of treatment Times per Week: 1-2x Number of Weeks: 3-4 Number of Visits: up to 6 Discharge Planning: to self-management, when goals are met or plateau of progress Precautions / Restrictions : None Therapeutic Exercise: ROM;Stretching;Strengthening Neuromuscular Reeducation: posture;core Manual Therapy: soft tissue mobilization;myofascial release;joint mobilization;muscle energy Modalities: cold pack;hot pack Plan for next visit: Thoracic PAs, review HEP, may begin lumbar ROM or gentle core exercises. 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 female who presents to therapy today with complaints of right sided low back pain and right leg pain. She woke up with it one morning and none of her usual stretches and OTCs helped. She went to the ER and was given a Medrol dosepak which is now complete. This seems to have improved the leg pain. Now the pain only comes down to her mid thigh. She has been sleeping better with gabapentin, and taking medications prescribed by Dr. Chery. Also using [place]. Reports the spasms are better. Onset February 2019, KLEBER no known. Alleviating factors: laying down Functional limitations: Sleep - wakes 1-2 a night Standing/walking 10 minutes Preparing meals Bend/lift Carrying laundry/groceries Donning/doffing socks/shoes Severity: Pain Ratin Pain rating at best: 5 Pain rating at worst: 10 Quality/Description: Worst is lowest right side, stiffness, numbness only intermittent Activity level: Usually goes to the gym 2x a week Pertinent Past Medical History: Depression/anxiety Associated symptoms: Numbness: Intermittent Weakness: Preceived Objective: Note: Items left blank indicates the item was not performed or not indicated at the time of the evaluation. Patient Outcome Measures : Modified Oswestry Low Back Pain Disablity Questionnaire in %: 64 Scores range from 0-100%, where a score of 0% represents minimal pain and maximal function. The minimal clinically important difference is a score reduction of 12%. Examination 1. Lumbar spine pain 2. Lumbar radicular pain 3. Myofascial pain Precautions/Restrictions: None Posture Observation: Generally good Lumbar ROM: Date: 03/07/2019 *Indicate scale AROM Lumbar Flexion 32 cm, Vanlue's sign Lumbar Extension Severely limited/guarded Right Left Lumbar Sidebending Lumbar Rotation Min ron Mod ron Lower Extremity Strength: Date: 03/07/2019 LE strength/5 Right Left Hip Flexion (L1-3) 5 5 Hip Extension (L5-S1) Hip Abduction (L4-5) Hip Adduction (L2-3) Hip External Rotation Hip Internal Rotation Knee Extension (L3-4) 5 5 Knee Flexion 5 5 Ankle Dorsiflexion (L4-5) 5 5 Great Toe Extension (L5) 5 5 Ankle Plantar flexion (S1) 5 5 Abdominals Lumbar Sensation Denies N/T LE Reflexes Patellar (L3-4) Achilles (S1-2) Clonus Lumbar Special Tests: Lumbar Special Tests Right Left Slump + - Straight leg raise 50 + - Crossover response - - SHAQ + - FADIR - - Hip Scour Test - - Timothy Test - - Nano's - - Hip rotation ROM supine/prone Isa's Prone instability test Pubic shotgun CPR for Lumbar Disc Herniation Ipsilateral SLR + <60 deg + Contralateral SLR - 1st MTP extensor weakness - Ankle PF weakness - Palpation: Tenderness to right lumbar paraspinals, SI ligaments, gluteals Repeated Motion Testing: Centralizes with Extension Passive Mobility - Joint Integrity: WNL LE Screen: Generally WNL Treatment Today TREATMENT MINUTES COMMENTS Evaluation 20 Self-care/ Home management Manual therapy 10 Thoracic spine PAs Thoracic manipulation Neuromuscular Re-education 13 Nerve health/healing discussed. Importance of movement, blood flow, and space for nerves. Initiated nerve glides sciatic and femoral for HEP Therapeutic Activity Therapeutic Exercises 10 Jory prone on elbows Gait training Modality Total 53 Blank areas are intentional and mean the treatment did not include these items. Shruthi Woods DPT 03/07/2019 3:30 PM documented in this encounter Miscellaneous Notes Patient Instructions - HE - Historical Provider - 03/07/2019 3:30 PM CDT Images from the original note were not included. Patient Instructions by Shruthi Woods PT at 03/07/2019 3:30 PM Author: Shruthi Woods PT Service: -- Author Type: Physical Therapist Filed: 03/07/2019 4:16 PM Encounter Date: 03/07/2019 Status: Signed Vat Overhauler: Shruthi Woods PT (Physical Therapist) ??? Lie on your back - Grab behind your knee slightly pulling your knee to your chest (you can use a towel if needed) - Straighten the leg as far as you can. Get a nice easy stretch. Do not hold - Bring the leg down - Repeat 10-15 x up to 5 times a day, at least 3 Femoral Stretch Lie down flat on your stomach. Wrap a strap (belt, towel, dog leash) around the top of one of your feet and pull the strap with your arms. Pull up to as much knee bend as you can and relax. Do not hold. Repeat 10-15x, up to 5 times a day at least 3x a day PRONE ON ELBOWS - ANAY Lying face down, slowly raise up and prop yourself up on your elbows. HOLD for 5 seconds, lay flat again for 5 seconds Repeat 10 times. 2-3 x a day documented in this encounter Plan of Treatment [...] documented as of this encounter Care Teams Vp Business Development Relationship Specialty Start Date End Date No Ref-Primary, Physician PCP - General 07/27/15 04/14/20 Holland Thomas MD PCP - General box toe flanger stitchdowns 04/15/[address] [address] documented as of this encounter
--- OUTSIDE RECORDS SUMMARY | 2022-08-31 22:24 | XMS_ITS | Encounter Summary ---
:1990 Author Organization [place] Address [facility] [place] [address] Care Team Providers Name Role Phone No Ref-Primary, Physician Primary Care Provider [phone] Holland Thomas MD Primary Care Provider Reason for Visit Reason Comments Back Pain Encounter Details Date Type Department Care Team Description 03/08/2019 Communication - [facility] Radha Diallo [facility], RN Neurosurgery [address] [place] [phone] Social History Tobacco Use Types Packs/Day [...] this encounter Miscellaneous Notes Telephone Encounter - Radha Diallo - 03/08/2019 9:39 AM CDT Patient calling to find out if she could be seen in clinic today or if she should go to the ER. States she was seen as new patient last week per Néstor Chery DO. She started PT yesterday. Her 2 year old daughter jumped on her back and she is now experiencing pain across entire low back; it had been just right sided. She also reports she is having some pain down into the left leg. Discussed with Poala WORTHY. She will see patient today. Patient scheduled for 1020 AM. documented in this encounter Plan of Treatment Not on filedocumented as of this encounter Visit Diagnoses Not on filedocumented in this encounter Additional Health Concerns Assessment Noted Time PHQ-9 Depression Total Score: 19 09/04/2015 7:20 AM CD T documented as of this encounter Care Teams Aerospace Medicine Physician Relationship Specialty Start Date End Date No Ref-Primary, Physician PCP - General 07/27/15 04/14/20 Holland Thomas MD PCP - General body builder apprentice 04/15/[address] [address] documented as of this encounter
--- OUTSIDE RECORDS SUMMARY | 2022-08-31 22:24 | XMS_ITS | Encounter Summary ---
:1990 Author Organization [place] Address [address] [place] [address] Care Team Providers Name Role Phone No Ref-Primary, Physician Primary Care Provider [phone] Holland Thomas MD Primary Care Provider [phone] Encounter Details Date Type Department Care Team Description 12/21/2017 Surgery - [facility] Herve Thomas OR MD Ambrosio [address] [place] [address] [facility] [address] [phone] [place], [place] [phone] (Wo rk) Social History Tobacco Use Types [...] (152 lb 1.6 oz) 12/21/2017 7:17 PM INSIDE SALES COORDINATOR Height 170.2 cm (5' 7) 12/20/2017 10:26 AM INSIDE SALES COORDINATOR Body Mass Index 23.82 12/20/2017 10:26 AM INSIDE SALES COORDINATOR documented in this encounter Plan of Treatment Not on filedocumented as of this encounter Visit Diagnoses Not on filedocumented in this encounter Additional Health Concerns Assessment Noted Time PHQ-9 Depression Total Score: 19 09/04/2015 7:20 AM CD T documented as of this encounter Care Teams Livestock Buyer Relationship Specialty Start Date End Date No Ref-Primary, Physician PCP - General 07/27/15 04/14/20 Holland Thomas MD PCP - General shiftman 04/15/[address] [phone] documented as of this encounter
--- OUTSIDE RECORDS SUMMARY | 2022-08-31 22:24 | XMS_ITS | Encounter Summary ---
:1990 Author Organization [place] Address [facility] [place] [address] Care Team Providers Name Role Phone No Ref-Primary, Physician Primary Care Provider [phone] Holland Thomas MD Primary Care Provider [phone] Encounter Details Date Type Department Care Team Description 03/30/2019 [facility] - [facility] [place] [facility] [place] [facility]; [facility] Short Lumbar radicular pain; Services [address] [facility]asc ial [facility] [address] [phone] Social History Tobacco Use Types Packs/Day [...] encounter Progress Notes Deja Celestin PT - 03/30/2019 10:30 AM CDT [facility] Daily Progress Note Patient Name: Keyla Porter Date of evaluation: 03/07/2019 Today's Date: 03/30/2019 Visit Number: 3 (per order) Referral Diagnosis: Lumbar spine pain [M54.5] ??- Primary Lumbar radicular pain [M54.16] Myofascial pain [M79.18] MEDX Referring provider: Dr. Chery Visit Diagnosis: ICD-10-CM 1. Lumbar spine pain M54.5 2. Lumbar radicular pain M54.16 3. Myofascial pain M79.18 Assessment: Patient does continue to have left sided LBP, left anterior thigh numbness, but feels like she is better able to stand upright. She did responded positively to HEP addition today. Patient continues to benefit from further PT. Patient getting injection today. Goals: Pt. will demonstrate/verbalize independence in self-management [...] the night without pain in 4 weeks Plan / Patient Instructions: Plan for next visit: LE axial distraction if indicated, try some core strength if ready. (Patient getting injection following today's appt) Subjective: Pain: 6/10 Still having spasms. Is noticing mild improvement since starting Cat/cow. Pain with child's pose reaching to side. Prone quad stretch increases back pain. Intermittent pain and mildly less severity. Numbness: left heel is good, no longer numb, left anterior thigh is still slightly numb. Right leg is good. Functional limitations: Sleep - wakes 1-2 a night Standing/walking 10 minutes Preparing meals Bend/lift Carrying laundry/groceries Donning/doffing socks/shoes Objective: Still no longer having numbness in left heel. Left thigh is numb still, but area of numbness is smaller (describes like a ball vs. A large band) No symptoms in right leg. Patient able to stand upright better. Exercises: see flowsheet for date performed Exercise #1: prone press ups Comment #1: supine SLR sliders Exercise #2: prone quad stretch - changed to supine quad stretching/nerve glide with leg off side ofmat instead. Comment #2: supine LTR - added to HEP Exercise #3: cat/cow - Added to HEP Comment #3: child's pose 3 way - Added to HEP Treatment Today TREATMENT MINUTES COMMENTS Evaluation Self-care/ Home management Manual therapy 15 Supine long axis distraction bilat, manual nerve gliding left LE Left quad MFR. Neuromuscular Re-education Therapeutic Activity Therapeutic Exercises 10 Reviewed all HEP ex, changed prone quad stretch/nerve glide to supine. Gait training Modality Total 25 Blank areas are intentional and mean the treatment did not include these items. Deja Celestin, DPT 03/30/2019 documented in this encounter Plan of Treatment [...] documented as of this encounter Care Teams Decorating Kiln Operator Relationship Specialty Start Date End Date No Ref-Primary, Physician PCP - General 07/27/15 04/14/20 Holland Thomas MD PCP - General sand cutting machine operator 04/15/[address] [address] documented as of this encounter
--- OUTSIDE RECORDS SUMMARY | 2022-08-31 22:24 | XMS_ITS | Encounter Summary ---
:1990 Author Organization [place] Address Count includes the [facility] [place] [address] Care Team Providers Name Role Phone No Ref-Primary, Physician Primary Care Provider [phone] Holland Thomas MD Primary Care Provider [phone] Reason for Visit Reason Comments Results Encounter Details Date Type Department Care Team Description 03/09/2019 Communication - [facility] Lorena Saavedra [facility] A, RN Neurosurgery [address] [place] [phone] Social History Tobacco Use Types Packs/Day [...] this encounter Miscellaneous Notes Telephone Encounter - Lorena Saavedra - 03/09/2019 3:17 PM CDT Call to pt with provider's results and recommendations. Pt verbalized understanding. She will continue with physical therapy and the medications as prescribed by Paola Narayanan. Pt already has follow-up appt with Dr. Chery scheduled on 03/21. Encouraged pt to call in the meantime with any questions/concerns or worsening symptoms. Telephone Encounter - Lorena Saavedra - 03/09/2019 3:16 PM CDT ----- Message from Néstor Chery DO sent at 03/09/2019 3:13 PM CDT ----- I reviewed the MRI as ordered by Paola Andino. She has some small disc bulges in the low back which isnormal wear and tear. She does have a tear in the outer layer of the disc most significant at L4-5 which may be causing her new pain but these typically heal. Recommend she continue with physical therapy and see the medications help that Paola prescribed. We can see her back next 1-2 weeks to see show she is doing. documented in this encounter Plan of Treatment Not on filedocumented as of this encounter Visit Diagnoses Not on filedocumented in this encounter Additional Health Concerns Assessment Noted Time PHQ-9 Depression Total Score: 19 09/04/2015 7:20 AM CD T documented as of this encounter Care Teams Statue Carver Relationship Specialty Start Date End Date No Ref-Primary, Physician PCP - General 07/27/15 04/14/20 Holland Thomas MD PCP - General sharebroker 04/15/[address] [address] documented as of this encounter
--- OUTSIDE RECORDS SUMMARY | 2022-08-31 22:24 | XMS_ITS | Encounter Summary ---
:1990 Author Organization [facility] Address [address] [facility] [place] [address] Care Team Providers Name Role Phone No Ref-Primary, Physician Primary Care Provider [phone] Reason for Visit Reason Comments Back Pain Encounter Details Date Type Department Care Team Description 02/28/[address] [facility], Yakelin E, Lumbar spine pain; Spine and DO Lumbar radicular pain; Neurosurgery EMERGENCY CARE Myofascial pain; [address] [facility] Sleep difficulties [address] [place] [id number] [phone] Social History Tobacco Use Types Packs/Day Years [...] - - Weight 72.6 kg (160 lb) 02/28/2019 1:54 PM CDT Height 170.2 cm (5' 7) 02/28/2019 1:54 PM CDT Body Mass Index 25.06 02/28/2019 1:54 PM CDT documented in this encounter Medications [...] encounter Progress Notes Néstor Chery, DO - 02/28/2019 1:48 PM CDT Assessment/Plan: Diagnoses and all orders for this visit: Lumbar spine pain - Ambulatory referral to Physical Therapy - nabumetone (RELAFEN) 500 MG tablet; Take 1-2 tablets (500-1,000 mg total) by mouth 2 (two) times aday as needed for pain. Dispense: 60 tablet; Refill: 0 Lumbar radicular pain - gabapentin (NEURONTIN) 100 MG capsule; 1 cap at bedtime x 3 days. Then may take 2 caps at bedtime x 3 days, then may take 3 caps at bedtime Dispense: 60 capsule; Refill: 2 - Ambulatory referral to Physical Therapy - nabumetone (RELAFEN) 500 MG tablet; Take 1-2 tablets (500-1,000 mg total) by mouth 2 (two) times aday as needed for pain. Dispense: 60 tablet; Refill: 0 Myofascial pain - Ambulatory referral to Physical Therapy Sleep difficulties - gabapentin (NEURONTIN) 100 MG capsule; 1 cap at bedtime x 3 days. Then may take 2 caps at bedtime x 3 days, then may take 3 caps at bedtime Dispense: 60 capsule; Refill: 2 Assessment: Pleasant 28 y.o. female with a history of depression anxiety with: 1. 1 week history of low back pain with proximal right lower extremity radicular symptoms in an S1 distribution.. she does have some mild disc bulging and old CT scan of her abdomen and pelvis from 1 year ago at L5-S1 question new disc herniation. She does only have pain for 1 week however and has normal reflexes sensation and strength in lower extremities. 2. Myofascial pain lumbar spine. 3. Poor sleep related to pain. Discussion: 1. I discussed the diagnosis and treatment options. We discussed options of medications, imaging, therapy. She was to avoid medications to cause significant drowsiness as she has children at home but is having trouble sleeping would like something for some of the pain. Was also recently given Medrol Dosepak from the emergency department. 2. Continue Medrol Dosepak for now. 3. Start physical therapy for some core strengthening and nerve glides. 4. Trial gabapentin low-dose 100 mg at bedtime increasing to 300 at bedtime. 5. We will provide a prescription for nabumetone which may be started after prednisone completed. 6. Continue with acetaminophen as needed for pain in the interim until Medrol Dosepak completed. 7. Follow-up 3-4 weeks. If symptoms worsen, she develops bowel or bladder incontinence or she has weakness in the legs she should contact us and I will order an MRI of the lumbar spine at that time andfollow-up after. It was our pleasure caring for your patient today, if there any questions or concerns please do not hesitate to contact us. Subjective: Patient ID: Keyla Porter is a 28 y.o. female. History of Present Illness:Patient presents at the request of the emergency department for evaluation of low back pain and right leg pain and paresthesias. Patient began having pain about 1 week ago. No trauma. Started with pain at the lumbosacral junction and over the few days significantly worsened and she began having spasms in the low back. Initially it felt that ibuprofen or acetaminophen ice heat and topical treatments should be tried and they were not effective. The pain continued to worsen and after a couple of days she developed some pain on the right leg with shooting pains down the back of the leg to the knee during spasms in the low back and numbness and tingling down the back of theleg to the knee otherwise. She did present to the emergency department was given Medrol Dosepak and taking ibuprofen as well but still having pain. Pain is now constant in the low back to the lumbosacral junction. She is still having intermittent spasms on the right gluteal region and low back with some shooting pain down the right leg and numbness and tingling down the back of the leg to the knee. Worse with sitting for more than 15 minutes or standing more than 10 minutes and walking for long distance. She needs to change positions regularly to decrease pain in the best position is half reclined or sitting back in a chair. At night she has poor sleep related symptoms and does have tingling down the leg. She has not had any bowel or bladder incontinence. She has some urinary urgency at times and also a sense that she needs to have a bowel mov ement when she uses the bathroom she does not have a bowel movement. No weakness in the legs she felt as if her legs were going to give out at times but they have not yet done so. She also has some oxycodone from the emergency department she takes occasionally. Imaging: *CT abdomen and pelvis from 1 year ago personally reviewed. This shows some mild degenerative changes L5-S1 with what appears to be broad-based disc bulge L5-S1. No fractures at that time. No recent imaging. Review of Systems: She complains of headaches, change in vision, leg swelling, shortness of breath, abdominal pain, constipation, nausea, urinary hesitancy at times but no bowel or bladder incontinence. She has muscle pain and fatigue with some itching, no rashes. Has some dizziness bruising easily poor sleep depression and anxiety. Remainder of 12 point review systems negative unless listed above. Past Medical History: Diagnosis Date ??? Abnormal [...] infection ??? 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 Boyfriend works at [employer]. Is attempting to quit smoking and does not drink alcohol. The following portions of the patient's history were reviewed and updated as appropriate: allergies,current medications, past family history, past medical history, past social history, past surgical history and problem list. WHO 5: 15 CONSTANTINO Score: 56 Objective: Physical Exam: Vitals: 02/28/19 1354 BP: 111/73 Pulse: (!) 53 General: Well-appearing female in no acute distress. Pleasant, cooperative, and interactive throughout the examination and interview. CV: No lower extremity edema on inspection or paltation. Lymphatics: No cervical lymphadenopathy palpated. Eyes: sclera clear. Skin: No rashes or lesions seen over the h ead/neck, hairline, arms, legs, . Respirations unlabored. MSK: Gait is nonantalgic. Able to heel-toewalk without difficulty. Negative Romberg. Spine: normal AP curves of the C, T, and L spine. Significantly reduced range of motion lumbar spine flexion and extension secondary to pain.. Palpation: Tenderness to palpation over lumbosacral junction L5-S1 right PSIS right gluteal tissues. No tenderness over the sciatic notch. Extremities: Full range of motion of the elbows, and wrists with no effusions or tenderness to palpation. Full range of motion of the hips, knees, and ankles with no effusions or tenderness to palpation. No hypermobility of the upper or lower extremities. Neurologic exam: Mental status: Patient is alert and oriented with normal affect. Attention, knowledge, memory, and language are intact. Normal coordination throughout the examination. Reflexes are 2+ and symmetric biceps, triceps, brachioradialis, patellar, and Achilles with down-going toes and Negati ve Angie's. Sensation is intact to light touch throughout the upper and lower extremities bilaterally. Manual muscle testing reveals 5 out of 5 in the hip flexors, knee flexors/extensors, ankle plantar flexors, ankle dorsiflexors, and EHL. Upper extremities: Grossly normal strength . Normal muscle bulk and tone in the arms and legs. Mild positive seated straight leg raise right negative left. documented in this encounter Miscellaneous Notes Patient Instructions - HE - Néstor Chery DO - 02/28/2019 1:48 PM CDT 1. Start Physical therapy 2. Try gabapentin at bedtime for nerve pain and sleep 3. Continue medrol pack 4. Take tylenol as needed for pain until medrol completed, then can take/try nabumetone as needed 5. Call with questions documented in this encounter Plan of Treatment Not on filedocumented as of this encounter Visit Diagnoses Diagnosis Lumbar spine pain Lumbago Lumbar radicular pain Thoracic or lumbosacral neuritis or radi culitis, unspecified Myofascial pain Mylagia and myositis, unspecified Sleep difficulties Sleep disturbance, unspecified documented in this encounter Additional Health Concerns Assessment Noted Time PHQ-9 Depression Total Score: 19 09/04/2015 7:20 AM CD T documented as of this encounter Care Teams Turbine [employer] Relationship Specialty Start Date End Date No Ref-Primary, Physician PCP - General 07/27/15 04/14/20 documented as of this encounter
--- OUTSIDE RECORDS SUMMARY | 2022-08-31 22:24 | XMS_ITS | Encounter Summary ---
:1990 Author Organization [facility] Address [address] [place] [address]. [place] [address] Care Team Providers Name Role Phone No Ref-Primary, Physician Primary Care Provider [phone] Reason for Visit Reason Comments Pelvic Pain Encounter Details Date Type Department Care Team Description 10/28/2017 Emergency [facility] Kj Perez MD Pelvic pain; [address] Endometriosis Emergency Room [place], [place] [id number] [place] [address] [place] [address] [facility] [phone] Social History Tobacco Use Types Packs/Day Years [...] - Inhaled Oxygen Concentration - - Weight 66.7 kg (147 lb) 10/28/2017 12:09 AM TREKKING GUIDE Height 170.2 cm (5' 7) 10/28/2017 12:09 AM TREKKING GUIDE Body Mass Index 23.02 10/28/2017 12:09 AM TREKKING GUIDE documented in this encounter Medications at Time of Discharge Medication Sig Dispensed Refills Start Date End Date Vit-Fe Take 1 tablet by 0 04/07/201603/2018 Fumarate-FA ( mouth daily COMPLETE) 14-0.4 MG TABS documented as of this encounter ED Notes Luis Perez MD - 10/28/2017 12:20 AM CST eMERGENCY dEPARTMENT eNCOUnter CHIEF COMPLAINT Chief Complaint Patient presents with ??? Pelvic Pain HPI Keyla Porter is a 27 y.o. female who presents for evaluation of pelvic pain. The patient statesshe has a history of severe endometriosis with ovarian cysts. She states her ovarian cysts are normally on her left ovary. Two days ago, the patient developed worsening sharp pain on her lower left abdomen. She states earlier this year she had a tubal ligation, and has not had a period since, but rather spotting. She states last night she started heavy bleeding. Tonight at work, she went through two tampons within two hours. She also states that for the last week she will have random episodes of vomiting and diarrhea. Currently in the ED, the patient rates her pain an 8/10 in severity. She denies radiating pain. She denies provoking or palliating factors. She denies fever, dysuria, higher urinary frequency, or any other associated injury or complaint. The creation of this record is based on the scribe???s observations of the work being performed by Luis Perez MD and the provider???s statements to them. It was created on his behalf by Jenni Mccord, a trained medical records field technician. This document has been checked and approved by the attending provider. PAST MEDICAL HISTORY Past Surgical History: Procedure Laterality Date ??? SECTION N/A 11/17/2016 Procedure: SECTION; Surgeon: Holland Thomas MD; Location: [facility]D OR; Service: ??? COLPOSCOPY 2011 ??? ENDOMETRIAL ABLATION during one of the laparotomies ??? EXPLORATORY LAPAROTOMY 3x - last in 10/2015, 2010, Gyne surgeon in 2015 states no contraindication to vaginal per patient ??? IUD removal 11/13/2015 laproscopic procedure ??? [place] LAP,FULGURATE/EXCISE LESIONS Right 03/25/2017 Procedure: LAPAROSCOPY, OVARIAN CYSTECTOMY; Surgeon: Holland Thomas MD; Location: [facility]; Service: Gynecology Past Medical History: Diagnosis Date ??? Abnormal Pap smear of cervix 2011 ??? Allergic ??? Anemia ??? Depression ??? Endometriosis ??? Endometriosis ??? Kidney stone ??? Migraine ??? PID (pelvic inflammatory disease) ??? depression 2011 ??? Urinary tract infection ??? Varicella CURRENT MEDICATIONS Patient's Medications New Prescriptions ONDANSETRON (ZOFRAN ODT) 4 MG DISINTEGRATING TABLET Take 1 tablet (4 mg total) by mouth every 8 (eight) hours as needed for nausea. OXYCODONE (ROXICODONE) 5 MG IMMEDIATE RELEASE TABLET Take 1 tablet (5 mg total) by mouth every 4 (four) hours as needed. Previous Medications CYCLOBENZAPRINE (FLEXERIL) 10 MG TABLET Take 1 tablet (10 mg total) by mouth 2 (two) times a day asneeded for muscle spasms. FERROUS SULFATE 325 (65 FE) MG TABLET Take 1 tablet by mouth once a week. On Wednesdays NAPROXEN (NAPROSYN) 500 MG TABLET Take 1 tablet (500 mg total) by mouth 2 (two) times a day with meals. Modified Medications No medications on file Discontinued Medications No medications on file ALLERGIES Allergies Allergen Reactions ??? Blood-Group Specific [...] Stroke Paternal Grandfather SOCIAL HISTORY Social History Social History ??? Marital status: Single Spouse name: Jose ??? Number of children: N/A ??? Years of education: come doreen Occupational History ??? unemployed Social History Main Topics ??? Smoking status: Current Every Day Smoker ??? Smokeless tobacco: Never Used ??? Alcohol use No ??? Drug use: No ??? Sexual activity: Yes control/ protection: IUD, None Other Topics Concern ??? Not on file Social History Narrative REVIEW OF SYSTEMS Constitutional: Denies fever, chills, weight loss, weakness, loss of appetite, Eyes: No pain, diplopia, vision loss, HENT: Denies sore throat, ear pain, dysphagia, Respiratory: No SOB, wheeze, cough, hemoptysis Cardiovascular: No CP, LOPEZ, palpitations, syncope GI: Denies dark, bloody stools. Endorses abdominal pain, nausea, vomiting, diarrhea. Musculoskeletal: Denies any new muscle/joint pain, swelling or loss of function. Skin: Denies rash Neurologic: Denies headache, focal weakness, sensory changes, vertigo, seizure Lymphatic: Denies swollen glands All other systems negative unless noted in HPI. PHYSICAL EXAM VITAL SIGNS: BP 125/76 (Patient Position: Sitting) Pulse 70 Temp 98.8 ??F (37.1 ??C) (Oral) Resp 16 Ht 5' 7 (1.702 m) Wt 147 lb (66.7 kg) SpO2 98% BMI 23.02 kg/m2 General Appearance: Alert, cooperative, normal speech and facial symmetry, appears stated age, Head: Normocephalic, without obvious abnormality, atraumatic Eyes: PERRL, conjunctiva/corneas clear, EOM's intact, no nystagmus ENT: Oropharynx clear. Teeth and gums appear normal. Tongue appears normal. Neck: Supple, symmetrical no adenopathy; no stridor or dysphonia, no soft tissue swelling or tenderness Chest: No tenderness or deformity, no crepitus Cardio: Regular rate and rhythm, S1 and S2 normal, no murmur, rub or gallop, 2+ pulses symmetric in all extremities Pulm: Clear to auscultation bilaterally, respirations unlabored, Back: Symmetric, no curvature, ROM normal, no CVA tenderness, no spinal tenderness Abdomen: Soft, Tender in LLQ, non distended, no masses, no organomegaly, no rebound or guarding, no peritoneal signs Extremities: No cyanosis clubbing or edema. No obvious trauma . Pulses intact and symmetric. skin: Skin color, texture, no rashes or lesions Neuro: Awake, alert, responsive to voice, follows commands, normal speech, No pronator drift. No gross motor weakness or sensory loss, moves all extremities, baseline ambulation, LABS Pertinent lab results reviewed in chart. Results for orders placed or performed during the hospital encounter of 10/28/17 Basic Metabolic Panel Result Value Ref Range Sodium 140 136 - 145 mmol/L Potassium 3.6 3.5 - 5.0 mmol/L Chloride 107 98 - 107 mmol/L CO2 24 22 - 31 mmol/L Anion Gap, Calculation 9 5 - 18 mmol/L Glucose 106 70 - 125 mg/dL Calcium 9.6 8.5 - 10.5 mg/dL BUN 14 8 - 22 mg/dL Creatinine 0.71 0.60 - 1.10 mg/dL GFR MDRD Af Amer >60 >60 mL/min/1.73m2 GFR MDRD Non Af Amer >60 >60 mL/min/1.73m2 UPT (lab test) Result Value Ref Range Test, Urine Negative Negative Specific Ber[place], UA 1.025 1.001 - 1.030 HM1 (CBC with Diff) Result Value Ref Range WBC 6.2 4.0 - 11.0 thou/uL RBC 3.94 3.80 - 5.40 mill/uL Hemoglobin 12.3 12.0 - 16.0 g/dL Hematocrit 35.7 35.0 - 47.0 % MCV 91 80 - 100 fL MCH 31.2 27.0 - 34.0 pg MCHC 34.5 32.0 - 36.0 g/dL RDW 12.6 11.0 - 14.5 % Platelets 257 140 - 440 thou/uL MPV 9.7 8.5 - 12.5 fL Neutrophils % 57 50 - 70 % Lymphocytes % 33 20 - 40 % Monocytes % 8 2 - 10 % Eosinophils % 1 0 - 6 % Basophils % 0 0 - 2 % Neutrophils Absolute 3.5 2.0 - 7.7 thou/uL Lymphocytes Absolute 2.0 0.8 - 4.4 thou/uL Monocytes Absolute 0.5 0.0 - 0.9 thou/uL Eosinophils Absolute 0.1 0.0 - 0.4 thou/uL Basophils Absolute 0.0 0.0 - 0.2 thou/uL EKG RADIOLOGY Images independently reviewed. Us Pelvis With Transvaginal Non Ob Result Date: 10/28/2017 US PELVIS WITH TRANSVAGINAL NON OB 10/28/2017 1:38 AM INDICATION: left adnexa pian. h/o endometriosisand ovarian cyst. TECHNIQUE: Transabdominal scans were performed. Endovaginal ultrasound was performed to better visualize the adnexa. COMPARISON: 04/16/2017 FINDINGS: Uterus measures 8.4 x 7.5 x 4.6 cm. Normal uterus with no masses. Endometrial thickness is 5 mm. Normal smooth endometrium. Right ovarymeasures 3.9 x 2.6 x 2.0 cm. Normal right ovary. Normal arterial duplex. Left ovary measures 3.4 x 2.5 x 1.9 cm. Normal left ovary. Normal arterial duplex. No significant free fluid in the cul-de-sac. CONCLUSION: 1. Normal ultrasound of the pelvis. Ct Abdomen Pelvis Without Oral With Iv Contrast Result Date: 10/28/2017 CT ABDOMEN PELVIS WO ORAL W IV CONTRAST 10/28/2017 4:02 AM INDICATION: Abdominal pain TECHNIQUE: CT abdomen and pelvis. Multiplanar reformation images (MPR). Dose reduction techniques were used. IV CONTRAST: Iohexol (Omni) 100 mL COMPARISON: 02/06/2017 FINDINGS: LUNG BASES: Linear atelectasis left base. ABDOMEN: Several tiny presumed hepatic cysts. Spleen, pancreas, adrenal glands, and the right kidneyare negative. Tiny left renal cyst. No appendicitis. PELVIS: Small amount of free fluid. Pelvic phleboliths. MUSCULOSKELETAL: Negative. CONCLUSION: 1. No appendicitis. 2. Tiny hepatic cysts. PROCEDURES ED MEDS New Prescriptions ONDANSETRON (ZOFRAN ODT) 4 MG DISINTEGRATING TABLET Take 1 tablet (4 mg total) by mouth every 8 (eight) hours as needed for nausea. OXYCODONE (ROXICODONE) 5 MG IMMEDIATE RELEASE TABLET Take 1 tablet (5 mg total) by mouth every 4 (four) hours as needed. ED COURSE & MEDICAL DECISION MAKING The patient was interviewed and examined. History in the chart was reviewed. 27 y.o. who presents with left lower quadrant pain. States this feels similar to her cyst. Does havea history of endometriosis as well. Some tenderness in her left pelvis. No tenderness in the right lower quadrant. No signs of appendicitis. She has had her tubes tied. UPT is negative. No signs of ectopic. Did start with a pelvic ultrasound which does not show an obvious cause of her symptoms. Then did get a CT scan of her abdomen. No other cause of her symptoms are noted. Unclear the cause of her pelvic pain. Is having some vaginal bleeding with this. May be related to her menses. Does have a history of endometriosis was also may be contributing. Her hemoglobin is normal. Her white count is normal. No signs of UTI. At this time patient is feeling better after IV Dilaudid, IV Zofran and IV fluids. Will discharge her home with both Zofran and oxycodone. She will follow-up with Dr. Thomas on Tuesday. She will also call them today. She will return for any worsening symptoms. FINAL DIAGNOSIS: 1. Pelvic pain 2. Endometriosis At the conclusion of the encounter I discussed the results of all of the tests and the disposition with the patient All questions were answered. They acknowledged understanding and was involved in the decision making regarding the overall care plan. I discussed with patient the utility, limitations and findings of the exam/interventions/studies done during this visit as well as the list of differential diagnosis and symptoms to monitor/return to ER for. Additional verbal discharge instructions were provided. Greg Garvin MD 10/28/17 0417 KING GUIDE documented in this encounter Plan of Treatment Not on filedocumented as of this encounter Procedures Procedure Name Priority Date/Time Associated Comments Diagnosis CT ABDOMEN PELVIS W Routine 10/28/2017 4:02 AM Re sults for this CONTRAST TREKKING GUIDE procedure are i n the results section. US PELVIC Routine 10/28/2017 1:38 AM Results f or this TRANSABDOMINAL AND TREKKING GUIDE procedure are in TRANSVAGINAL the results section. documented in this encounter Results CT Abdomen Pelvis w Contrast (10/28/2017 4:02 AM TREKKING GUIDE) Anatomical Region Laterality Modality Abdomen/Pelvis, SUBRAD CT BODY, UMP CT ABDOMEN PELVIS, Computed Tomography RAD CT Specimen (Source) Anatomical Location Collection Method / Collectio n Time Received Time / Laterality Volume Impressions 10/28/2017 4:07 AM TREKKING GUIDE CONCLUSION: 1. ??No appendicitis. 2. ??Tiny hepatic cysts. Narrative 10/28/2017 4:[address] ABDOMEN PELVIS WO ORAL W IV CONTRAST 10/28/2017 4:02 AM ? INDICATION: Abdominal pain TECHNIQUE: CT abdomen and pelvis. Multip lanar reformation images (MPR). Dose reduction techniques were used. IV CONTRAST: Iohexol (Omni) 100 mL COMPARISON: 02/06/2017 FINDINGS: LUNG BASES: Linear atelectasis left base . ABDOMEN: Several tiny presumed hepatic c ysts. Spleen, pancreas, adrenal glands, and the right kidney are negative. Tiny left renal cyst. No appendicitis. PELVIS: Small amount of free fluid. Pelv ic phleboliths. MUSCULOSKELETAL: Negative. Procedure Note Alec Sanchez MD - 04/28/2021Formattin g of this note might be different from the original. CT ABDOMEN PELVIS WO ORAL W IV CONTRAST 10/28/2017 4:02 AM INDICATION: Abdominal pain TECHNIQUE: CT abdomen and pelvis. Multip lanar reformation images (MPR). Dose reduction techniques were used. IV CONTRAST: Iohexol (Omni) 100 mL COMPARISON: 02/06/2017 FINDINGS: LUNG BASES: Linear atelectasis left base . ABDOMEN: Several tiny presumed hepatic c ysts. Spleen, pancreas, adrenal glands, and the right kidney are negative. Tiny left renal cyst. No appendicitis. PELVIS: Small amount of free fluid. Pelv ic phleboliths. MUSCULOSKELETAL: Negative. IMPRESSION: CONCLUSION: 1. No appendicitis. 2. Tiny hepatic cysts. Luis Perez MD IMG CT ORDERABLES US Pelvic Complete with Transvaginal (10/28/2017 1:38 AM TREKKING GUIDE) Anatomical Region Laterality Modality Abdomen/Pelvis Other Specimen (Source) Anatomical Location Collection Method / Collectio n Time Received Time / Laterality Volume Impressions 10/28/2017 1:47 AM TREKKING GUIDE CONCLUSION: 1. ??Normal ultrasound of the pelvis. Narrative 10/28/2017 1:47 AM TREKKING GUIDE US PELVIS WITH TRANSVAGINAL NON OB 10/28/2017 1:38 AM INDICATION: left adnexa pian. ??h/o endo metriosis and ovarian cyst. TECHNIQUE: Transabdominal scans were per formed. Endovaginal ultrasound was performed to better visualize the adnexa. COMPARISON: 04/16/2017 FINDINGS: Uterus measures 8.4 x 7.5 x 4.6 cm. Norm al uterus with no masses. Endometrial thickness is 5 mm. Normal sm ooth endometrium. Right ovary measures 3.9 x 2.6 x 2.0 cm. Normal right ovary. Normal arterial duplex. Left ovary measures 3.4 x 2.5 x 1.9 cm. Normal left ovary. Normal arterial duplex. No significant free fluid in the cul-de- sac. Procedure Note Alec Sanchez MD - 04/28/2021Formattin g of this note might be different from the original. US PELVIS WITH TRANSVAGINAL NON OB 10/28/2017 1:38 AM INDICATION: left adnexa pian. h/o endome triosis and ovarian cyst. TECHNIQUE: Transabdominal scans were per formed. Endovaginal ultrasound was performed to better visualize the adnexa. COMPARISON: 04/16/2017 FINDINGS: Uterus measures 8.4 x 7.5 x 4.6 cm. Norm al uterus with no masses. Endometrial thickness is 5 mm. Normal sm ooth endometrium. Right ovary measures 3.9 x 2.6 x 2.0 cm. Normal right ovary. Normal arterial duplex. Left ovary measures 3.4 x 2.5 x 1.9 cm. Normal left ovary. Normal arterial duplex. No significant free fluid in the cul-de- sac. IMPRESSION: CONCLUSION: 1. Normal ultrasound of the pelvis. Luis Perez MD IMG US ORDERABLES documented in this encounter Visit Diagnoses Diagnosis Pelvic pain Unspecified symptom associated with fema le genital organs Endometriosis Endometriosis, site unspecified documented in this encounter Additional Health Concerns Assessment Noted Time PHQ-9 Depression Total Score: 19 09/04/2015 7:20 AM CD T documented as of this encounter Care Teams Scribing Machine Operator Relationship Specialty Start Date End Date No Ref-Primary, Physician PCP - General 07/27/15 04/14/20 documented as of this encounter
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
--- OUTSIDE RECORDS SUMMARY | 2022-08-31 22:24 | XMS_ITS | Encounter Summary ---
:1990 Author Organization [facility] Address [address] [place] [id number] Care Team Providers Name Role Phone No Ref-Primary, Physician Primary Care Provider [phone] Holland Thomas MD Primary Care Provider [phone] Encounter Details Date Type Department Care Team Description 03/23/2019 [facility] Short Lumbar radicular pain; Services [address] [facility] [address] [id number] Social History Tobacco Use Types Packs/Day [...] encounter Progress Notes Deja Celestin PT - 03/23/2019 9:30 AM CDT [facility] Daily Progress Note Patient Name: Keyla Porter Date of evaluation: 03/07/2019 Today's Date: 03/23/2019 Referral Diagnosis: Lumbar spine pain [M54.5] ??- Primary Lumbar radicular pain [M54.16] Myofascial pain [M79.18] MEDX Referring provider: Dr. Chery Visit Diagnosis: ICD-10-CM 1. Lumbar spine pain M54.5 2. Lumbar radicular pain M54.16 3. Myofascial pain M79.18 Assessment: Patient does continue to have left sided LBP, left anterior thigh numbness. She did responded positively to HEP addition today. Patient continues to benefit from further PT. Patient getting injections next week. Goals: Pt. will demonstrate/verbalize independence in self-management [...] / Patient Instructions: Plan for next visit: Thoracic PAs (if indicated) LE axial distraction if indicated, try some core strength if ready. See how new ex are going. Getting injection in 1 week Subjective: Had MRI and it revealed disc bulge/annular tears, see image. Going to get an injection in 1 week Doing the ex at home so far. The difficult one is the prone quad stretch Was pretty sore the day after evaluation. Social information: Occupation: [employer], 6 year old and 2.5 year old twin boys Functional limitations: Sleep - wakes 1-2 a night Standing/walking 10 minutes Preparing meals Bend/lift Carrying laundry/groceries Donning/doffing socks/shoes Objective: Patient can feel her left heel again. Left thigh is numb still in a band. No symptoms in right leg, but today after leg pull had a slight numbness in right leg, diminished with child's pose Exercises: Exercise #1: prone press ups Comment #1: supine SLR sliders Exercise #2: prone quad stretch with - nerve glide Comment #2: supine LTR - added to HEP Exercise #3: cat/cow - Added to HEP Comment #3: child's pose 3 way - Added to HEP Treatment Today TREATMENT MINUTES COMMENTS Evaluation Self-care/ Home management Manual therapy 10 Supine long axis distraction bilat Neuromuscular Re-education Therapeutic Activity Therapeutic Exercises 20 See above. Continued ed on healing process. Discussed mechanics with lifting 2.5 year old boys. Discussed that symptoms may come and go over the healing process and sometimes soreness can happen after PT. Gait training Modality Total 30 Blank areas are intentional and mean the treatment did not include these items. Deja Celestin, DPT 03/23/2019 documented in this encounter Plan of Treatment [...] documented as of this encounter Care Teams Key Holder Relationship Specialty Start Date End Date No Ref-Primary, Physician PCP - General 07/27/15 04/14/20 Holland Thomas MD PCP - General civil engineering project designer 04/15/[address] [address] documented as of this encounter
--- OUTSIDE RECORDS SUMMARY | 2022-08-31 22:24 | XMS_ITS | Encounter Summary ---
:1990 Author Organization [facility] Address [address] [place] [id number] Care Team Providers Name Role Phone No Ref-Primary, Physician Primary Care Provider [phone] Reason for Visit Reason Comments Follow Up Back Pain Encounter Details Date Type Department Care Team Description 03/08/[address] [facility] Paola Narayanan Lumb ar spine pain; Spine and PA-C Lumbar radicular pain; Neurosurgery [address] Lumbar disc herniation 1747 [facility] [address] [id number] [phone] Social History Tobacco Use Types Packs/Day Years [...] - - Weight 72.6 kg (160 lb) 03/08/2019 10:36 AM CDT Height - - Body Mass Index 25.06 02/28/2019 1:54 PM [...] documented as of this encounter Progress Notes Paola Narayanan - 03/08/2019 10:20 AM CDT Assessment: Keyla Porter is a 28 y.o. y.o. female with past medical history significant for anxiety who presents today for follow-up regarding a 12-day history of low back pain now radiating into the left lower extremity with associated numbness, tingling, and weakness. I am concerned that the patient may have a disc herniation with compression of the left S1 nerve root. On exam, patient demonstrated weakness in the left ankle plantar flexors, and a sensory deficit in the left S1 dermatome, and an absent left Achilles reflex. Plan: A shared decision making plan was used. The patient's values and choices were respected. The following represents what was discussed and decided upon by the physician assistant finance manager and the patient. 1. DIAGNOSTIC TESTS: I ordered an MRI lumbar spine for further evaluation given the patient's abnormal neurologic exam. 2. PHYSICAL THERAPY: Patient is currently in physical therapy. She will continue with physical therapy in the home exercises. 3. MEDICATIONS: -Percocet 5/325 mg 1 tab every 6 hours as needed, #16 with no refills was prescribed. I checked the [place] prescription monitoring database. Patient had 8 tabs of oxycodone prescribed on February 27, 2019. She ran out of those. I reviewed the risk of the medication with the patient including addiction, drowsiness, dizziness, constipation. I told the patient we will not prescribe this medication long-term. I will not provide telephone refills. -Patient can continue using gabapentin. She is using 200 mg at bedtime. -Patient will continue using nabumetone 2 tabs twice daily. 4. INTERVENTIONS: No interventions were ordered. Patient could potentially benefit from interventional pain management if she fails to improve with conservative treatment, depending on the results of the MRI lumbar spine. 5. PATIENT EDUCATION: Patient is in agreement the above plan. All questions were answered. 6. FOLLOW-UP: A nurse will call the patient with results of her MRI. Follow-up will be determined byDr. Chery. If she has any questions or concerns, she should not hesitate to call. Subjective: Keyla Porter is a 28 y.o. female who presents today for follow-up regarding a 12-day history ofsevere low back pain. Patient states that initially the pain was on the right side. She is having intermittent pain radiating down the right leg. Patient was evaluated in the emergency department and then by Dr. Chery. She completed a Medrol Dosepak which provided some relief of her pain. She was put on gabapentin and nabumetone. She started physical therapy yesterday. Unfortunately, yesterday the patient was laying on her stomach and [id number]-old daughter jumped on her back. Since then, she hashad severe back pain, now worse on the left. She has had to crawl. Today she bent over in the showerand she developed severe pain radiating down the left leg with numbness, tingling, and weakness. 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 Patient complains of left greater than right low back pain. Pain is at the lumbosacral junction. Sheis experiencing spasms in the lower back. On the left, she feels the pain radiating down the posterior lateral thigh into the posterior calf. On the right, she feels some pain in the groin. Patient hasnumbness and tingling in the left heel. She states the left leg feels weak compared with the right. She rates her pain today is a 10 out of 10. At its worst it is a 10 out of 10. At its best it is a 5 out of 10. Pain is aggravated with bending, walking, sitting. She denies any alleviating factors for the pain. She denies any loss of bowel or bladder control. Patient had her first session of physical therapy yesterday. Patient is been using gabapentin 200 mgat bedtime. She uses nabumetone 2 tabs twice daily. She completed a Medrol Dosepak. She ran out of oxycodone. Past medical history is reviewed and is unchanged. Review of Systems: Positive for numbness/tingling, weakness, headache. Negative for loss of bowel/bladder control, inability to urinate, pain worse at night, drips, difficulty swallowing, difficulty with hand skills, fevers, unintentional weight loss. Objective: CONSTITUTIONAL: Vital signs as above. Patient appears to be in a great deal of pain. The patient is well nourished and well groomed. PSYCHIATRIC: The patient is awake, alert, oriented to person, place and time. The patient is answering questions appropriately with clear speech. Normal affect. HEENT: Normocephalic, atraumatic. Sclera clear. SKIN: Skin over the face, posterior torso, bilateral upper and lower extremities is clean, dry, intact without rashes. MUSCULOSKELETAL: Gait is severely antalgic, favoring the left.. Patient demonstrates difficulty ambulate and at both the toes and heels. She is unable to single-leg toe raise on the left x5 (only able to do it twice). Able to single leg toe raise on the right x5 without difficulty. Significant tenderness over the left lower lumbar paraspinal muscles. The patient has 4/5 strength left ankle plantar flexors, otherwise 5/5 strength for the bilateral hip flexors, knee flexors/extensors, ankle dorsiflexors, right ankle plantar flexors. NEUROLOGICAL: Reflexes are 2+ bilateral patellar, 2+ right Achilles, absent left Achilles. No ankle clonus bilaterally. Subjective diminished sensation left S1 dermatome. RESULTS: I reviewed a CT abd/pelvis from 03/10/18 which shows a disc bulge at L5/S1. documented in this encounter Plan of Treatment [...] documented as of this encounter Care Teams Seismic Prospecting Observer Relationship Specialty Start Date End Date No Ref-Primary, Physician PCP - General 07/27/15 04/14/20 documented as of this encounter
--- OUTSIDE RECORDS SUMMARY | 2022-08-31 22:24 | XMS_ITS | Encounter Summary ---
:1990 Author Organization [facility] Address [address] [place] [address] Care Team Providers Name Role Phone No Ref-Primary, Physician Primary Care Provider [phone] Encounter Details Date Type Department Care Team Description 12/20/2017 Hospital Encounter [facility] Social History Tobacco Use Types Packs/Day Years [...] MG TABS documented as of this encounter Plan of Treatment Not on filedocumented as of this encounter Visit Diagnoses Not on filedocumented in this encounter Additional Health Concerns Assessment Noted Time PHQ-9 Depression Total Score: 19 09/04/2015 7:20 AM CD T documented as of this encounter Care Teams Sugar Chipper Machine Operator Relationship Specialty Start Date End Date No Ref-Primary, Physician PCP - General 07/27/15 04/14/20 documented as of this encounter
--- OUTSIDE RECORDS SUMMARY | 2022-08-31 22:25 | XMS_ITS | Encounter Summary ---
:1990 Author Organization [facility] Address [address] [place] [address] Care Team Providers Name Role Phone No Ref-Primary, Physician Primary Care Provider [phone] Reason for Visit Reason Comments Headache Encounter Details Date Type Department Care Team Description 02/27/2017 [facility] Donovan Giraldo MD [facility] Emergency [facility]5 [place] [address] [place] [address] [place] [address] [place] [address] [phone] Social History Tobacco Use Types Packs/Day Years [...] documented as of this encounter ED Notes Donovan Miller MD - 02/27/2017 4:20 PM CDT ED CONSULTATION Date/Time:02/27/2017 4:20 PM I am seeing this patient along with Tray Carpio PA-C. I, Dr. Donovan Miller have reviewed the documentation, personally taken the patient's history, performed an exam and agree with the physical finds, diagnosis and management plan. HPI:Keyla Porter is a 26 y.o. female with a known history of migraines, who presents to the ED for evaluation of a headache. Last night, the patient reports that she developed the gradual onset ofa headache with associated nausea, that has persisted since onset. Today, the patient reports that she developed the onset of multiple episodes of vomiting and has not been able to keep anything down. The patient then became concerned with her symptoms, causing her to present to the ED for evaluation. Currently in the ED, the patient continues to complain of right-sided headache, which she rates a 7/10 in severity. The patient also complains of photophobia, but denies any other associated symptoms, injuries or complaints. This headache is like her previous migraine headaches. She is concerned though because of her family history of cerebral aneuryms. This document serves as a record of services performed by Dr. Donovan Miller, it was created on hisbehalf by Janeth Daly, trained medical registrar. The creation of this record is based on the scribe's personal observations and the providers statements to her. This document has been checked and approved by the attending provider. Physical Exam: General Appearance: Alert, cooperative, appears stated age ?? Head: Normocephalic, without obvious abnormality, atraumatic Eyes: PERRL, conjunctiva/corneas clear ENT: Lips, mucosa, and tongue normal; teeth and gums normal Neuro: AOx3, scalemaker grossly intact, Strength symmetric I, Dr. Donovan Miller, personally performed the services described in this documentation, as scribed by Janeth Daly in my presence, and it is both accurate and complete. Donovan Miller MD 02/27/17 1818 Lex Carpio PA-C - 02/27/2017 3:23 PM CDT eMERGENCY dEPARTMENT eNCOUnter CHIEF COMPLAINT Chief Complaint Patient presents with ??? Headache HPI Keyla Porter is a 26 y.o. female with a history of migraines who presents to the ED for evaluation of a headache. Last night, patient reports developing a gradual headache with associated nausea. She notes that she tried taking Advil last night with minimal relief. She states that her symptoms have progressively worsened since. This morning, patient states that she began to have multiple episodes of vomiting and has not been able to keep anything down today. She notes similar migraines inthe past and has had CT scans that were negative, with the last being in 2012. She notes that her father of multiple brain aneurisms, so she is concerned that she may have one. Currently in the ED, patient endorses a headache with associated nausea. She denies any pain radiation and rates her pain 10/10 in severity. She denies any definite alleviating factors and notes that her pain is provoked with exposure to light. She denies any recent fever, diarrhea, blood in stool, urinary problems, numbn ess, weakness, tingling, chest pain, shortness of breath, speech difficulty, dizziness, or any otherassociated injuries or complaints. PAST MEDICAL HISTORY Past Medical History: Diagnosis Date ??? Abnormal Pap smear of cervix 2012 Repeat WNL ??? Allergic Morphine ??? 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 Endometriosis dx at 14, 3 laproscopic procedures ??? Kidney stone 1 instance - prior to 2007 ~15 years ??? Migraine migraines - back of neck ??? PID (pelvic inflammatory disease) in an ER visit, got a shot - feels like it was misdiagnosed, endometriosis mis-diagnosed? depression 2011 Was doing the period alone ??? Urinary tract infection ??? Varicella twice as a child SURGICAL HISTORY Past Surgical History: Procedure Laterality Date ??? SECTION N/A 11/17/2016 Procedure: SECTION; Surgeon: Holland Thomas MD; Location: [facility]; Service: ??? COLPOSCOPY 2011 ??? ENDOMETRIAL ABLATION during one of the laparotomies ??? EXPLORATORY LAPAROTOMY 3x - last in 10/2015, 2010, Gyne surgeon in 2015 states no contraindication to vaginal per patient ??? IUD removal 11/13/2015 laproscopic procedure CURRENT MEDICATIONS Patient's Medications New Prescriptions No medications on file Previous Medications FERROUS SULFATE 325 (65 FE) MG TABLET Take 1 tablet by mouth once as needed (takes twice per week). MUPIROCIN 15 G, BETAMETHASONE VALERATE 15 G, MICONAZOLE NITRATE 0.6 G, PROPYLENE GLYCOL 1 ML Apply topically as needed for irritation. Apply to nipples sparingly after each feeding. Do not wash or wipe off. PNV CMB#80-SPLI-SPHUP ACID ( COMPLETE) 14-400 MG-MCG TAB Take 1 tablet by mouth daily. Modified Medications No medications on file Discontinued [...] Social History Main Topics ??? Smoking status: Former Smoker ??? Smokeless tobacco: Never Used Comment: quit at 12 weeks ??? Alcohol use No ??? Drug use: No ??? Sexual activity: Yes control/ protection: IUD, None Other Topics Concern ??? Not on file Social History Narrative REVIEW OF SYSTEMS Constitutional: Denies fever, chills, weight loss or weakness Eyes: Denies photophobia or discharge HENT: Denies sore throat or ear pain Respiratory: Denies cough or shortness of breath Cardiovascular: Denies chest pain, palpitations or swelling GI: Endorses nausea and vomiting. Denies abdominal pain or dark, bloody stools. Musculoskeletal: Denies any new muscle/joint pain. Skin: No rash. Neurologic: Endorses headache. Denies focal weakness or sensory changes All systems negative except as marked. PHYSICAL EXAM VITAL SIGNS: BP 116/72 (Patient Position: Sitting) Pulse 79 Temp 98.8 ??F (37.1 ??C) (Oral) Resp 16 LMP 01/14/2017 (Exact Date) SpO2 98% Constitutional: Well developed, Well nourished, alert, awake, in mild distress, nontoxic HEENT: Head is atraumatic, external ears and nose exam is benign. No evidence of meningismus. Pupilsare equal round reactive to light Respiratory: No respiratory distress Musculoskeletal: Non-tender, FROM, No edema, No calf tenderness Integument: Warm, Dry, No erythema, No rash. Neurologic: Alert & oriented x 3, No sensory or motor deficit noted Psychiatric: Affect normal, Mood normal. RADIOLOGY Please see official radiology report. Cta Head Result Date: 02/27/2017 [facility] CTA HEAD 02/27/2017 4:12 PM INDICATION: Headache, chronic, new features or neuro deficit TECHNIQUE: Head CT angiogram with IV contrast. Noncontrast head CT followed by axial helical CTimages of the intracranial vessels obtained during the arterial phase of intravenous contrast adminis tration. Axial helical 2D reconstructed images and multiplanar 3D MIP reconstructed images of the intracranial vessels were performed by the technologist. Dose reduction techniques were used. CONTRAST:Iohexol (Omni) 100 mL COMPARISON: None FINDINGS: NONCONTRAST HEAD CT: No acute intracranial hemorrhage. No mass effect. Normal ventricles. The crespo-white matter differentiation is maintained. The calvarium and skull base are unremarkable. Visualized portions of the orbits are unremarkable. The visualized portions of the paranasal sinuses and mastoid air cells are clear. HEAD CTA: No significant stenosis or occlusion in the proximal intracranial vessels. No aneurysm or vascular malformation identified. The vertebrobasilar system is unremarkable. The major dural venous sinuses are patent. CONCLUSION: HEAD CT: 1. Normal head CT. 2. No mass, hemorrhage or stroke. Head CTA 1. Normal head CTA. 2. No aneurysm, stenosis or vascular malformation. I have independently reviewed and interpreted the above imaging, pending the final radiology read. ED COURSE & MEDICAL DECISION MAKING Pertinent Labs & Imaging studies reviewed. (See chart for details) No results found for this visit on 02/27/17. New Prescriptions No medications on file Based on the patient's family history of aneurysms I did plan to screen with the CTA of the head. Low suspicion for subarachnoid hemorrhage. Patient states that this feels similar to previous migraineshowever because of the strong family history I did evaluate with CAT scans. Her last imaging of the head was 4 years ago, and she gets infrequent migraines. No concern for infection based on history ofpresent illness or physical exam findings. FINAL IMPRESSION 1. Migraine This is an accurate record of my words and actions during this visit as documented by the scribe. Lex Carpio PA-C 02/27/17 1712 documented in this encounter Plan of Treatment Not on filedocumented as of this encounter Procedures Procedure Name Priority Date/Time Associated Diagnosis Comme nts CTA HEAD WITH Routine 02/27/2017 4:12 PM Results for this CONTRAST CDT procedure are i n the results section. documented in this encounter Results CTA Head with Contrast (02/27/2017 4:12 PM CDT) Anatomical Region Laterality Modality Head, SUBRAD CT NEURO, SUBRAD CT NEURO, UMP CT NEURO, Computed Tomography RAD CT Specimen (Source) Anatomical Location Collection Method / Collectio n Time Received Time / Laterality Volume Impressions 02/27/2017 4:55 PM CDT CONCLUSION: HEAD CT: 1. ??Normal head CT. 2. ??No mass, hemorrhage or stroke. Head CTA 1. ??Normal head CTA. 2. ??No aneurysm, stenosis or vascular m alformation. Narrative 02/27/2017 4:55 PM CDT [facility] CTA HEAD 02/27/2017 4:12 PM INDICATION: Headache, chronic, new featu res or neuro deficit TECHNIQUE: Head CT angiogram with IV con trast. Noncontrast head CT followed by axial helical CT images of the intracranial vessels obtained during the arterial phase of intravenous contrast administration. Axial helical 2D reconstructed images and multiplanar 3D MIP reconstructed images of the intracranial vessels were performed by the technologist. Dose reduction techniques were used. CONTRAST: Iohexol (Omni) 100 mL COMPARISON: None FINDINGS: NONCONTRAST HEAD CT: No acute intracrani al hemorrhage. No mass effect. Normal ventricles. The crespo-white matter differentiation is maintained. The calvarium and skull base are unremarkable. ??Visualized portions of the orbits are unremarkable. The visualized portions of the paranasal sin uses and mastoid air cells are clear. HEAD CTA: No significant stenosis or occ lusion in the proximal intracranial vessels. ??No aneurysm or vascular malformation identified. ??The vertebrobasilar system is unremarkable. The major dural venous sinuses are patent. Procedure Note Lyle Alvarado Benito - 04/27/2021 [facility] CTA HEAD 02/27/2017 4:12 PM INDICATION: Headache, chronic, new featu res or neuro deficit TECHNIQUE: Head CT angiogram with IV con trast. Noncontrast head CT followed by axial helical CT images of the intracranial vessels obtained during the arterial phase of intravenous contrast administration. Axial helical 2D reconstructed images and multiplanar 3D MIP reconstructed images of the intracranial vessels were performed by the technologist. Dose reduction techniques were used. CONTRAST: Iohexol (Omni) 100 mL COMPARISON: None FINDINGS: NONCONTRAST HEAD CT: No acute intracrani al hemorrhage. No mass effect. Normal ventricles. The crespo-white matter differentiation is maintained. The calvarium and skull base are unremarkable. Visualized portions of the orbits are unremarkable. The visualized portions of the paranasal sin uses and mastoid air cells are clear. HEAD CTA: No significant stenosis or occ lusion in the proximal intracranial vessels. No aneurysm or vascular malformation identified. The vertebrobasilar system is unremarkable. The major dural venous sinuses are patent. IMPRESSION: CONCLUSION: HEAD CT: 1. Normal head CT. 2. No mass, hemorrhage or stroke. Head CTA 1. Normal head CTA. 2. No aneurysm, stenosis or vascular mal formation. Lex Carpio PA-C IMFarhan CT ORDERABLES documented in this encounter Visit Diagnoses Diagnosis Migraine Migraine, unspecified, without mention o f intractable migraine without mention of status migrainosus documented in this encounter Additional Health Concerns Assessment Noted Time PHQ-9 Depression Total Score: 19 09/04/2015 7:20 AM CD T documented as of this encounter Care Teams Diagnostics Sales Developer Relationship Specialty Start Date End Date No Ref-Primary, Physician PCP - General 07/27/15 04/14/20 documented as of this encounter
--- OUTSIDE RECORDS SUMMARY | 2022-08-31 22:25 | XMS_ITS | Encounter Summary ---
:1990 Author Organization [place] Address [address] [place] [id number] Care Team Providers Name Role Phone No Ref-Primary, Physician Primary Care Provider [phone] Holland Thomas MD Primary Care Provider [phone] Amarilys Friedman ELEVATOR SUPERVISOR Unavailable Encounter Details Date Type Department Care Team Description 12/02/2016 Records - [facility] Provider, Histo [facility] [address] [address] Social History Tobacco Use Types Packs/Day Years Used Date Smoking Tobacco: Former Cigarettes 0.1 Smokeless Tobacco: Never Comments: smoking 10cig/day- down to 1-2 with Alcohol Use Standard Drinks/Week Comments No 0 (1 standard drink = 0.6 oz pure alcoho l) Sex Assigned at Date Recorded Not on file documented as of this encounter Progress Notes Historical Provider - 12/02/2016 9:20 AM CST Assessment: plugged duct resolved, now fredo Plan: 1) discussed fredo protocol, Rx APNO and gentian marianne 2) f/u prn Subjective: Pt is here today because: baby tx for yeast with gentian marianne, Rx nystatin for mom, taking 600 mg Ibuprofin Infants name: Chantelle Hager 's bday: 16 Infant's weight: 7lb 2 oz Mode of delivery: c Infants MD: Virgen Discharge weight: 6lb 10.2 Frequency and duration of feedings: not since yest, q-2-3 hr, 10- 20 min, left side shorter time Swallows audible per mother: yes Numbers of feedings in 24 hours: 8-10 Number urines per day: 7 Number of stools per day and their color: 4-5 yellow seedy, last night more mucousy Supplementation: every other feeding 2-3 oz formula Pumping: left making less than right, but can get as much 1 oz from the left, 4x a day, total 3-5 oz Objective/Physical exam: Mother: Noticed breasts grew larger and areolas darkened during and she noticed primary engorgement when her milk came in. Her nipples are everted, the areola is compressible, the breast is soft and full. Sore nipples: left dimples a little, erythematous both sides, baby being treated for yeast EPDS: [place] Depression Scale EPDS Total Score: 6 (11/25/2016 1:00 PM) Pretty good Current Outpatient Prescriptions: ??? ferrous sulfate 325 (65 FE) MG tablet, Take 1 tablet by mouth once as needed (takes twice per week)., Disp: , Rfl: ??? oxyCODONE-acetaminophen (PERCOCET) 5-325 mg per tablet, Take 1-2 tablets by mouth every 4 (four)hours as needed for pain., Disp: , Rfl: ??? PNV cmb#76-noeg-bwqal acid ( COMPLETE) 14-400 mg-mcg Tab, Take 1 tablet by mouth daily.,Disp: 60 tablet, Rfl: 0 Past Medical History Diagnosis Date ??? Abnormal Pap smear of cervix 2012 Repeat WNL ??? Allergic Morphine ??? 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 Endometriosis dx at 14, 3 laproscopic procedures ??? Kidney stone 1 instance - prior to 2008 ~15 years ??? Migraine migraines - back of neck ??? PID (pelvic inflammatory disease) in an ER visit, got a shot - feels like it was misdiagnosed, endometriosis mis-diagnosed? depression 2012 Was doing the period alone ??? Urinary tract infection ??? Varicella twice as a child Past Surgical History Procedure Laterality Date ??? Iud removal 11/13/2015 laproscopic procedure ??? Colposcopy 2011 ??? Endometrial ablation during one of the laparotomies ??? Exploratory laparotomy 3x - last in 10/2015, 2010, Gyne surgeon in 2015 states no contraindication to vaginal per patient ??? section N/A 11/17/2016 Procedure: SECTION; Surgeon: Holland Thomas MD; Location: [facility] [place]; Service: Family History Problem Relation Age of Onset [...] loss Paternal Grandfather ??? Stroke Paternal Grandfather Visit Vitals ??? BP 130/76 ??? LMP 02/29/2016 (Exact Date) ??? Yes TT 40 min >50% debt counselor and ed. Yulisa Mart CNM/IBCLC documented in this encounter Plan of Treatment Not on filedocumented as of this encounter Visit Diagnoses Not on filedocumented in this encounter Additional Health Concerns Assessment Noted Time PHQ-9 Depression Total Score: 19 09/04/2015 7:20 AM CD T documented as of this encounter Care Teams Child Nutrition Assistant Relationship Specialty Start Date End Date No Ref-Primary, Physician PCP - General 07/27/15 04/14/20 Holland Thomas MD PCP - General social media sr strategy manager 04/15/20 [address] [place] [id number] Amarilys Friedman NP Assigned PCP 06/05/21 [address] [place] [address] documented as of this encounter
--- OUTSIDE RECORDS SUMMARY | 2022-08-31 22:25 | XMS_ITS | Encounter Summary ---
:1990 Author Organization [facility] Address [address] [place] [id number] Care Team Providers Name Role Phone No Ref-Primary, Physician Primary Care Provider [phone] Reason for Visit Reason Comments Swelling pt wants a second opinion. [facility] doctors at [place] Encounter Details Date Type Department Care Team Description [facility] [place] [id number] [place] [address] [place] [address] [phone] (Wo rk) Social History Tobacco Use Types [...] Sign Reading Time Taken Comments Blood Pressure 120/63 11/15/2016 5:45 PM DIRECTOR TELEVISION Pulse - - Temperature 36.9 ??C (98.4 ??F) 11/15/2016 3:36 PM DIRECTOR TELEVISION Respiratory Rate 18 11/15/2016 3:36 PM DIRECTOR TELEVISION Oxygen Saturation - - Inhaled Oxygen Concentration - - Weight - - Height - - Body Mass Index - - documented in this encounter Discharge Instructions Discharge InstructionsLa Nena Cool RN - 11/15/2016 6:02 PM CST Discharge Instructions for Undelivered Patients [facility] Diet: * Drink 8 to 12 glasses of liquids (milk, juice, water) every day * You may eat meals and snacks. Activity: * Count kicks every day (see handout). * Call your doctor or nurse living coach if your baby is moving less than usual. Call your provider if you notice: * Swelling in your face or increased swelling in your hands or legs. * Headaches that are not relieved by Tylenol (acetaminophen). * Changes in your vision (blurring; seeing spots or stars). * Nausea (sick to your stomach) and vomiting (throwing up). * Weight gain of 5 pounds per week. * Heartburn that doesn't go away. * Signs of bladder infection: Pain when you urinate (use the toilet), needing to go more often or more urgently. * The bag of ashton (membrane) breaks, or you notice leaking in your underwear. * Bright red blood in your underwear. * Abdominal (lower belly) or stomach pain. * For first baby: Contractions (tightenings) less than 5 minutes apart for one hour or more. * Second (plus) baby: Contractions (tightenings) less than 10 minutes apart and getting stronger. * Increase or change in vaginal discharge (note the color and amount). Make sure you follow up with your primary provider this week. CTOR TELEVISION documented in this encounter Medications at Time of Discharge Medication Sig Dispensed Refills Start Date End Date Vit-Fe Take 1 tablet by 0 04/07/201603/2018 Fumarate-FA ( mouth daily COMPLETE) 14-0.4 MG TABS documented as of this encounter Progress Notes La Nena oCol RN - 11/15/2016 6:12 PM CST Discharge instructions reviewed and questions answered. Pt left in stable condition ambulatory with her Mother. CTOR TELEVISION La Nena Cool RN - 11/15/2016 5:[address] Cintron sat at pt's bedside for a while to discuss pt's situation. Pt reports that it was nice tohave a doctor actually talk with her about what was going on. Lab results negative so far, random protein just on the border of elevated. Vitals are stable. Pt is to follow up with her primary providerthis week. CTOR TELEVISION documented in this encounter H&P Notes Becca Cintron MD - 11/15/2016 4:33 PM CST 26 yo @ 36.2 weeks (EDD1/ by LMP c/w 1st TM U/S) here with swelling and pain. Usually receives her care with [facility] (planning on delivery at [facility]). Feeling frustrated due to swelling and pain. + FM, no ctx, no LOF, no VB. Originally had low lying placenta that resolved. complicated by 2nd TM bleeding that resolved. Was discharged from hospital last month. For past 1-2 weeks, she has had painful swelling in her hands and feet. Tried massage, bathing, lying her side, or tylenol. Headache started 3 days ago but constantly there behind her left eye. Some weakness in hands. Low back pain as well. Was given percocet for hip pain when she was last in hospital. Takes rarely. Last taken 3 days ago. Different FOB compared to last . Patient Active Problem List Diagnosis Date Noted ??? care, subsequent 11/15/2016 Priority: Medium ??? Warm reactive antibody (H) 07/23/2016 Priority: Medium Overview: Overview: Initial Ab screen pos for unidentified Ab; recommend repeat Ab screen later in - antibody+for warm auto antibody, Connie negative and E negative (per blood bank, no risk to baby, only important if she needs a blood transfusion). Repeat antibody screen at 28 week visit ??? History of laparoscopy 07/23/2016 Priority: Medium Overview: 03/2010 for endometriosis, Also on 11/13/2015 had Laser co2 laparoscopic vaporization andometrium with combined D&C, operative hysteroscopy (IUD strings up in uterus, and cleared out endometriosis) - OB has cleared for vaginal , Requested Op report. LOBITO 07/23 ??? Depression with anxiety 09/03/2015 Priority: Medium Was on buspar. Off for ??? CARDIOVASCULAR SCREENING; LDL GOAL LESS THAN 160 09/20/2010 Priority: Medium Past Medical History Diagnosis Date ??? Heart murmur ??? Chickenpox x2 ??? Papanicolaou smear of cervix with low grade squamous intraepithelial lesion (LGSIL) 05/03/12 ??? Suicidal ideation 07/27/2015 ??? Endometriosis ??? IUD migration (H) Past Surgical History Procedure Laterality Date ??? C oral surgery procedure wisdom teeth x 5 ??? Dilation and curettage suction, treat incomplete 2008 D&E ??? Laparoscopy 03/2010 endometriosis ??? Colonoscopy ??? Laser co2 laparoscopic vaporization endometrium N/A 11/13/2015 vaporization of endometriosis ??? Dilation and curettage, operative hysteroscopy, combined N/A 11/13/2015 D&C HSC ??? C laparoscopic iud removal 11/13/2015 Allergies Allergen Reactions ??? Blood Transfusion Related (Informational Only) Other (See Comments) Patient has a history of a clinically significant antibody against RBC antigens. A delay in compatible RBCs may occur. ??? Morphine Unknown Nerve pain ??? [place] Meds prior: vitamin, vistaril, percocet or tylenol, flagyl for BV, iron supplement Social History Substance Use Topics ??? Smoking status: Former Smoker -- 0.10 packs/day Types: Cigarettes ??? Smokeless tobacco: Never Used Comment: smoking 10cig/day- down to 1-2 with ??? Alcohol Use: No PE: BP 128/69 mmHg Temp(Src) 98.4 ??F (36.9 ??C) (Oral) Resp 18 LMP 02/29/2016 (Exact Date) Gen: NAD ABd: soft, gravid, minimally tender Ext: trace edema, 2+ DTRs. Component Latest Ref Rng 11/15/2016 WBC 4.0 - 11.0 10e9/L 7.1 RBC Count 3.8 - 5.2 10e12/L 3.38 (L) Hemoglobin 11.7 - 15.7 g/dL 10.4 (L) Hematocrit 35.0 - 47.0 % 31.7 (L) MCV 78 - 100 fl 94 MCH 26.5 - 33.0 pg 30.8 MCHC 31.5 - 36.5 g/dL 32.8 RDW 10.0 - 15.0 % 12.9 Platelet Count 150 - 450 10e9/L 196 Protein Random Urine 0.44 Protein Total Urine g/gr Creatinine 0 - 0.2 g/g Cr 0.22 (H) AST 0 - 45 U/L 20 ALT 0 - 50 U/L 14 Uric Acid 2.6 - 6.0 mg/dL 4.3 Creatinine Urine Random 202 A/P 36.2 weeks here with swelling and pain No evidence of pre-eclampsia. Discussed aches and pains of . Patient reassured. Reviewed supportive measures, compression stocking, wrist splints, and tylenol. Patient declined any pain medication as she has some at home. Becca Cintron M.D. Face to face time: 20 min. CTOR TELEVISION documented in this encounter Miscellaneous Notes Provider Notification - La Nena Cool RN - 11/15/2016 4:03 PM CST 11/15/16 1602 Provider Notification Provider Name/Title Dr. Cintron Method of Notification Phone Request Evaluate - Remote Notification Reason Patient Arrived;Labor Status;Pain;Maternal Vital Sign Change;Lab/Diagnostic Study;Patient Request Pt here from [place] for a 2nd opinion. Pt states that she has had swelling for 3 days in her hands and legs/feet, so bad that she can not bear weight on them when she wakes up, currently she is unable to make a fist. Pt reports having a headache for the past 3 days behind her eye that will not go away even with tylenol. Pt has had vomitingand diarrhea since yesterday. Pt denies LOF, denies bleeding and reports + movement. Pt is currently being treated for BV and is on her last day of flagyl. Pt's records do not show that a urine was ran today. Vitals stable 128/69 HR=84 temp 98.4 oral. Category 1 FHT, some irritability noted on monitor. Plan: obtain PIH labs and urine. Pt unable to void yet. CTOR TELEVISION documented in this encounter Plan of Treatment Not on filedocumented as of this encounter Procedures Procedure Name Priority Date/Time Associated Comments Diagnosis PROTEIN RANDOM URINE STAT 11/15/2016 5:05 PM R esults for this DIRECTOR TELEVISION procedure are i n the results section. CREATININE RANDOM Routine 11/15/2016 5:05 PM Resu lts for this URINE DIRECTOR TELEVISION procedure are i n the results section. URIC ACID STAT 11/15/2016 4:30 PM Results f or this DIRECTOR TELEVISION procedure are i n the results section. AST STAT 11/15/2016 4:30 PM Results f or this DIRECTOR TELEVISION procedure are i n the results section. ALT STAT 11/15/2016 4:30 PM Results f or this DIRECTOR TELEVISION procedure are i n the results section. CBC WITH PLATELETS STAT 11/15/2016 4:30 PM Res ults for this DIRECTOR TELEVISION procedure are i n the results section. documented in this encounter Results Creatinine random urine (11/15/2016 5:05 PM DIRECTOR TELEVISION) athologist Signature Creatinine 202 mg/dL [facility] Specimen Anatomical Collection Method Collection Time Receive d Time (Source) Location / / Volume Laterality 11/15/2016 5:05 PM 6 5:14 DIRECTOR TELEVISION PM DIRECTOR TELEVISION Becca Cintron MD LAB - URINE ORDERABLES Performing Organization Address City/[facility]/ZIP Code Phon e Number [facility] [address] [place], [place] [address] (ABNORMAL) Protein random urine (11/15/2016 5:05 PM DIRECTOR TELEVISION) Analysis Performed At Path logist Time Signature Protein Random 0.44 g/L [facility] Protein Total 0.22 (H) 0 - 0.2 [facility] Urine g/gr g/g [facility] Creatinine URBANA Specimen Anatomical Collection Method Collection Time Receive d Time (Source) Location / / Volume Laterality Urine specimen URINE SPECIMEN 11/15/2016 5:05 PM 11/15 5:14 (specimen) OBTAINED BY CLEAN DIRECTOR TELEVISION PM DIRECTOR TELEVISION CATCH PROCEDURE / Unknown Becca Cintron MD LAB - URINE ORDERABLES Performing Organization Address City/[facility]/ZIP Code Phon e Number [facility] [address] [place], [place] [address] Uric acid (11/15/2016 4:30 PM DIRECTOR TELEVISION) athologist Signature Uric Acid 4.3 2.6 - 6.0 [facility] mg/dL [facility] Specimen Anatomical Collection Method Collection Time Receive d Time (Source) Location / / Volume Laterality Blood specimen 11/15/2016 4:30 PM 016 4:31 (specimen) DIRECTOR TELEVISION PM DIRECTOR TELEVISION Becca Cintron MD LAB - BLOOD ORDERABLES Performing Organization Address City/[facility] Phon e Number [facility] [address] [place], [place] [address] ALT (11/15/2016 4:30 PM DIRECTOR TELEVISION) athologist Signature ALT 14 0 - 50 U/L [facility] Specimen Anatomical Collection Method Collection Time Receive d Time (Source) Location / / Volume Laterality Blood specimen 11/15/2016 4:30 PM 016 4:31 (specimen) DIRECTOR TELEVISION PM DIRECTOR TELEVISION Becca Cintron MD LAB - BLOOD ORDERABLES Performing Organization Address City/[facility]/ZIP Code Phon e Number [facility] [address] [place], [place] [address] AST (11/15/2016 4:30 PM DIRECTOR TELEVISION) athologist Signature AST 20 0 - 45 U/L [facility] Specimen Anatomical Collection Method Collection Time Receive d Time (Source) Location / / Volume Laterality Blood specimen 11/15/2016 4:30 PM 016 4:31 (specimen) DIRECTOR TELEVISION PM DIRECTOR TELEVISION Becca Cintron MD LAB - BLOOD ORDERABLES Performing Organization Address City/[facility] Phon e Number [facility] [address] [place], [place] [address] (ABNORMAL) CBC with platelets (11/15/2016 4:30 PM DIRECTOR TELEVISION) Analysis Performed At Patho logist Time Signature WBC 7.1 4.0 - 11.0 [facility] 10e9/L [facility] RBC Count 3.38 (L) 3.8 - 5.2 [facility] 10e12/L [facility] Hemoglobin 10.4 (L) 11.7 - [facility] 15.7 g/dL [facility] Hematocrit 31.7 (L) 35.0 - [facility] 47.0 % [facility] MCV 94 78 - 100 [facility] MCH 30.8 26.5 - [facility] 33.0 pg [facility] MCHC 32.8 31.5 - [facility] 36.5 g/dL [facility] RDW 12.9 10.0 - [facility] 15.0 % [facility] Platelet Count 196 150 - 450 [facility] 10e9/L [facility] Specimen Anatomical Collection Method Collection Time Receive d Time (Source) Location / / Volume Laterality Blood specimen 11/15/2016 4:30 PM 016 4:31 (specimen) DIRECTOR TELEVISION PM DIRECTOR TELEVISION Becca Cintron MD LAB - BLOOD ORDERABLES Performing Organization Address City/State/ZIP Code Phon e Number [facility] [address] [place], [place] [address] documented in this encounter Visit Diagnoses Diagnosis care, subsequent Supervision of other normal documented in this encounter Active and Recently Administered Medications Additional Health Concerns Assessment Noted Time PHQ-9 Depression Total Score: 19 09/04/2015 7:20 AM CD T documented as of this encounter Care Teams Industrial Manufacturing Technician Relationship Specialty Start Date End Date No Ref-Primary, Physician PCP - General 07/27/15 04/14/20 documented as of this encounter
--- OUTSIDE RECORDS SUMMARY | 2022-08-31 22:25 | XMS_ITS | Encounter Summary ---
:1990 Author Organization [facility] Address [address] [place] [id number] Care Team Providers Name Role Phone No Ref-Primary, Physician Primary Care Provider [phone] Reason for Visit Reason Comments Spontaneous Rupture of Membrane Encounter Details Date Type Department Care Team Description 11/16/2016 - Hospital Encounter [facility] Holland Thomas Sami livered by 11/20/2016 [facility] Valente MD section Maternity Care [address] [place] [phone] Social History Tobacco Use Types Packs/Day Years [...] - Inhaled Oxygen Concentration - - Weight 79.4 kg (175 lb) 11/16/2016 5:10 AM RUSSET REPAIRER Height 170.2 cm (5' 7) 11/16/2016 5:10 AM RUSSET REPAIRER Body Mass Index 27.41 11/16/2016 5:10 AM RUSSET REPAIRER documented in this encounter Discharge Summaries Juan Neves MD - 11/20/2016 12:00 AM CST DATE OF SERVICE: 11/20/2016 DATE OF ADMISSION: 11/16/2016 DATE OF DISCHARGE: 11/20/2016 ADMITTING DIAGNOSES: 1. Intrauterine , term. 2. Third trimester bleeding. 3. Prolonged rupture of membranes. 4. Failure to progress. DISCHARGE DIAGNOSES: 1. Intrauterine , term. 2. Third trimester bleeding. 3. Prolonged rupture of membranes. 4. Failure to progress. HOSPITAL COURSE: Keyla was admitted. Attempt was made to induce labor. She failed to deliver and section was performed. Follow up 2 weeks. DISCHARGE MEDICATIONS: Percocet. JUAN NEVES MD ta D 11/20/2016 08:42:28 T 11/20/2016 09:49:03 R 11/20/2016 09:49:03 [id number] cc:HOLLAND FREITAS MD ET REPAIRER documented in this encounter Medications at Time of Discharge Medication Sig Dispensed Refills Start Date End Date Vit-Fe Take 1 tablet by 0 04/07/201603/2018 Fumarate-FA ( mouth daily COMPLETE) 14-0.4 MG TABS documented as of this encounter Progress Notes Mariluz Brumfield - 11/20/2016 1:11 PM CST SW received tox screen results which was positive for cannabinoids in baby's system. [facility] faxed results to [facility]. No further follow up needed. MARICHUY August 11/24/2016 9:32 AM ET REPAIRER Juan Neves MD - 11/20/2016 8:35 AM CST POD 3 DOING WELL DISCHARGE ET REPAIRER Historical Provider - 11/19/2016 3:48 PM CST This lead technical writer met with patient to introduce role of funeral workers and to provide resources as appropriate. Patient reports she has a car seat. Her partner is bringing the car seat and will be buying diapers/other necessities. She shares they were going to buy baby supplies this week, however, her baby arrived early. She reports having support from her family and friends. She asked about housing information. Loan Processor encouraged patient to search online for housing/apartment rental listings and to check at stores to see if there are catalogs. Patient verbalized understanding. She and her partner is currently staying with her family. She also shares they are a blended family; she has 1 daughter, her partn er has 2 daughters. She denies needing resources at this time. CLIFTON Saavedra 11/19/2016 Lluvia Dickinson DO - 11/19/2016 10:10 AM CST Day 2: Subjective: The patient feels well. The patient has no emotional concerns. Pain is well controlled with current medications. The patient is ambulating well. She is voiding and passing gas.The amount and color of the lochia is appropriate for the duration of recovery, patient denies clots. The baby is well. Objective The patient has a blood pressure which is within the normal range. Urinary output is adequate. Exam: Visit Vitals ??? BP 128/77 ??? Pulse 93 ??? Temp 98 ??F (36.7 ??C) (Oral) ??? Resp 18 ??? Ht 5' 7 (1.702 m) ??? Wt 175 lb (79.4 kg) ??? LMP 02/29/2016 (Exact Date) ??? SpO2 98% ??? Unknown ??? BMI 27.41 kg/m2 General: NAD Abdomen: soft, NT Fundus: firm, nontender Incision: C/D/I Ext: no pain Impression: Normal course. POD#2, LTCS secondary to arrest of dilation Acute blood loss anemia - stable Plan: - Continue current care. - Doing well - Likely home tomorrow Lluvia Dickinson DO ET REPAIRER Carlie Neves MD - 11/18/2016 3:19 PM CST [employer] Progress Note Doing well. No complaints. Pain controlled. Tolerating PO. Ambulating. Voiding. Temp: [97.7 ??F (36.5 ??C)-99.3 ??F (37.4 ??C)] 99.3 ??F (37.4 ??C) Heart Rate: [67-98] 84 Resp: [16-20] 16 BP: (99-129)/(51-75) 118/61 NAD, AAO x 3 Abdomen soft, non tender Incision - clean and dry No c/c/e Hgb: 10.3 --> 8.7 --> 7.5 A/P: 26 yo POD #1 s/p primary C/S 2/2 arrest of dilation -- Asymptomatic acute blood loss anemia. BPs normotensive, non tachycardic. Will repeat Hgb and monitor closely. -- PPx - SCDs and ambulation Carlie Neves MD (P) [phone] ET REPAIRER Angelique Yang MD - 11/18/2016 2:10 PM CST ADMISSION Date of Admission: 1990 Hospital Assigned Name Keyla Porter ?? 1990 ?? Parent Assigned Name ? Time of 9:50 PM ?? Gender female ?? Gestational Age at Gestational Age: <None> ?? Primary Care Physician Orion Freitas MD MOTHER'S INFORMATION Mother's Name & Age This patient's mother is not on file. Mother's Parity This patient's mother is not on file. Maternal Blood Type A pos Mother's GBS Status negative Antibiotics received in labor: penicillin x3 Mother's Hep B Status negative Mother's Labs HIV, RPR, Hep C All negative steroids: Labor complications: Failure to Progress in First Stage Induction/Augmentation: Induction: Oxytocin Augmentation: None Delivery Mode , Low Vertical Indication for C/S (if applicable): Arrest of First Stage Delivering Provider Problems: none Significant Family History:Her mother was born with an enlarged heart and has a heart murmur. This patient's mother is not on file. Scores 1 minute: 9 5 minute: 9 Weight 175 lb (79.4 kg) Feeding Type Risk Factors for Jaundice Gestational age 35-36 weeks Concerns:Her mother had a positive syphilis test. Her mother was informed this was a false positive and her confirmatory test was negative. [place] Admission Examination Age at exam: 67216 days weight (gm): 175 lb (79.4 kg) length (cm): 5' 7 (170.2 cm) Head circumference (cm): Exam: Blood pressure 113/68, pulse 76, temperature 98.2 ??F (36.8 ??C), temperature source Oral, resp. rate 18, height 5' 7 (1.702 m), weight 175 lb (79.4 kg), last menstrual period 02/29/2016, SpO2 99 %, unknown if currently . General Appearance: Healthy-appearing, vigorous , strong cry. Head: Normal sutures and fontanelle Eyes: Sclerae white, red reflex not evaluated Ears: Normal position and pinnae; no ear pits Nose: Clear, normal mucosa Throat: Lips, tongue, and mucosa are moist, pink and intact; palate intact Neck: Supple, symmetrical; no sinus tracts or pits Chest: Lungs clear to auscultation, no increased work of breathing Heart: Regular rate & rhythm, normal S1 and S2, no murmurs, rubs, or gallops Abdomen: Soft, non-distended, no masses; umbilical cord clamped Pulses: Strong symmetric femoral pulses, brisk capillary refill Hips: Negative Quinn & Ortolani, gluteal creases equal : Normal female genitalia Extremities: Well-perfused, warm and dry; all digits present; no crepitus over clavicles Neuro: Symmetric tone and strength; positive root and suck; symmetric normal reflexes Skin: No lesions or rashes. Back: Normal; spine without dimples or gladis Lab Values on Admission Results for orders placed or performed during the hospital encounter of 11/16/16 Syphilis Screen, [place] Result Value Ref Range Syphilis Screen [place] Reactive (!) Non-Reactive Treponema pallidum by TP-PA Result Value Ref Range Scan Result See Scanned Report Hemoglobin (If not done this hospitalization) Result Value Ref Range Hemoglobin 10.3 (L) 12.0 - 16.0 g/dL Type and screen (If not done this hospitalization) Result Value Ref Range ABORh A POS Antibody Screen Positive (!) Negative Platelet Count Result Value Ref Range Platelets 191 140 - 440 thou/uL Hemoglobin Result Value Ref Range Hemoglobin 8.7 (L) 12.0 - 16.0 g/dL Platelet Count Result Value Ref Range Platelets 167 140 - 440 thou/uL Hemoglobin Result Value Ref Range Hemoglobin 7.5 (L) 12.0 - 16.0 g/dL HIV Antigen/Antibody Screening [place] Result Value Ref Range HIV Antigen / Antibody Negative Negative Hepatitis B Surface Antigen (HBsAG) Result Value Ref Range Hepatitis B Surface Ag Negative Negative Hemoglobin Result Value Ref Range Hemoglobin 7.6 (L) 12.0 - 16.0 g/dL Hemoglobin Result Value Ref Range Hemoglobin 7.3 (L) 12.0 - 16.0 g/dL Reference Lab Workup Result Value Ref Range Antibody ID See scanned report Placenta Path Exam Result Value Ref Range Case Report Surgical Pathology Case: [id number] Authorizing Provider: Holland Thomas MD Collected: 11/17/2016 2333 Ordering Location: [facility] Received: 11/18/2016 [facility] Pathologist: Chris Page MD PhD Specimen: Placenta Final Diagnosis PLACENTA, DELIVERY - MILD TO MODERATE STAGE 1 CHORIOAMNIONITIS - PATCHY SECONDARY VILLOUS EDEMA - THREE-VESSEL UMBILICAL CORD WITH NO EVIDENCE OF FUNISITIS - VILLOUS MATURATION CONSISTENT WITH LATE THIRD TRIMESTER - PLACENTAL WEIGHT IS AT THE 50TH PERCENTILE FOR GESTATIONAL AGE Clinical Information Clinical history: See comments Reason for procedure: Suspected abruption Time placed in formalin: NA Comment Order Information for the patient's : [place] Female-Keyla [[id number]] Date and Time of Delivery: 11/17 ??9:50 PM Type of delivery: , Low Vertical Delivering Provider: Birthing Room/OR: [facility] OR 2 Infant Clinical Information Gender: Female Living Status: Yes [1] Birthweight: 114 ounces Apgars 1: ??1 minute: 9 ??[9] ?5 minutes: 9 ??[9] Cord Complications: Fluid Color: Clear [1] Amniotic Fluid Amount: Normal Maternal Clinical Information Estimated Date of Delivery: 12/11/16 Gestational Age: ??36w4d : ? /Intapartum History: Eclampsia: No; Hypertension: No; Drug Use: No; Smoker: Yes; Diabetes: No; Abnormal Bleeding: Yes; Maternal Fever: No Additional Clinical Information: ??36 week 4 day gestation, PPROM for almost 48 hours Describe cords if multiple : N/A Gross Description The specimen is labeled with the patient's name, received unfixed transferred to formalin at 7:12 am on November 18, consisting of a 22 x 17 x 2 cm placental disc with marginally attached crump-pink membranes and a centrally attached three- vessel umbilical cord, with a mild helical pattern, 37 cm long and 1.5 cm in average diameter. There is no discoloration or opacification of the membranes. The maternal surface shows a mildly disrupted cotyledonous architecture. The surface has the usual branching vascular pattern without abnormality. The cut surface shows maroon spongy tissue without abnormality. Without the cord and membranes the disc is 450 grams. Storage Administrator sections are submitted. BLOCK LABELS: 1) Umbilical cord and membranes; 2) Peripheral edge of placental disc; 3) More centralportion of placental disc CTM:dls Charges CPT: 74237 ICD-10:O41.1230 Result Flag Normal Antibody Identification Result Value Ref Range Unidentified Antibody REFERRED FOR I.D. [place] Meds: Vitamin K: Yes EES: Yes Hep B Vaccine: Yes Assessment: Keyla Porter is a 26 y.o. old born at Gestational Age: <None> via C- Section, Low Vertical delivery on 1990 at . Patient Active Problem List Diagnosis ??? Generalized anxiety disorder ??? Hx of depression, currently ??? History of laparoscopy ??? Encounter for supervision of other normal , second trimester ??? Abnormal antibody titer ??? Hypotension ??? Anxiety ??? Vaginal bleeding during , antepartum ??? Pelvic pain ??? Vaginal bleeding ? Postoperative fever Plan: Routine cares. . discuss syphilis testing with MD Because mom's confirmatory test was negative, baby does not need any further evaluation I, Tita Lacey, am scribing for and in the presence of, Dr. Angelique Yang. I, Dr. Angelique Yang, personally performed the services described in this documentation, as scribed by Tita Lacey in my presence, and it is both accurate and complete. Com[facility]: [facility] 12/01/2016 2:11 PM Angelique Yang MD ET REPAIRER Holland Thomas MD - 11/17/2016 10:18 PM CST PROCEDURE NOTE: NAME: Keyla Porter RECORD # [id number] ADMIT DATE: 11/16/2016 DATE OF SERVICE: 11/17/2016 PREOPERATIVE DIAGNOSIS: IUP at 36+3 weeks, prolonged PROM, Hx of prolonged 3rd trimester bleeding, arrest of dilitation PROCEDURE: Low transverse section SURGEON: Holland Thomas GAUGE INSPECTOR: OR staff ANESTHESIA: spinal ESTIMATED BLOOD LOSS: 1000cc DRAINS: Toney catheter. COMPLICATIONS: Possible occult abruption FINDINGS: Normal uterus, tubes and ovaries bilateral. Normal appearance to the adnexae. Live female born, Apgars of 9 at 1 minute, 9 at 5 minutes, Weight (oz): 114 oz. CONSENT: Patient was met preoperatively where we discussed the procedure and the risks associated with the procedure. She understood these to include but not limited to injury to adjacent organs including bowel, bladder, ureter, infection and bleeding. Understanding these risks her consents were signed. PROCEDURE: Patient was brought to the operating room in stable condition. After induction of a spinal anesthetic, heart tones were checked and were stable. She was prepped and draped in sterile fashion for the procedure. A timeout was then performed. A pfannensteil skin incision was made to the level of the fascia. The fascia was incised laterally. Nalini clamps were applied to the superior aspect of the incision which was sharply dissected from the rectus muscles. The nalini clamps were then reapplied to the inferior aspect of the incision which was similarly sharply dissected from the rectus muscles. The rectus muscles were bluntly inthe midline. The peritoneum was entered sharply. This incision was then extended. A bladder blade was introduced. The vesicouterine peritoneum was identified and a bladder flap was was created. A low transverse uterine incision was made and amniotic sac was ruptured revealing copiuos amounts of bloody amniotic fluid. The baby's head was then delivered using a Kiwi vacuum: 2 pulls, 1 pop-off.There wasnot a nuchal cord noted. There was a spontaneous cry and therefore bulb suction was performed. The remainder of the infant was easily delivered. The cord was clamped x 2 and cut and the infant handed off to waiting nursing personnel. The placenta was then manually removed from the uterus. The uterus was exteriorized, covered with a moist laparotomy sponge and cleared of all clots and debris. The uterine incision was closed with 0 chromic from both angles in a running locking suture and A second imbricating suture of 0 was used for hemostasis. The uterus was returned to the abdominopelvic cavity. The pericolic gutters were clearedof all clots and debris. The uterine incision was again inspected and noted to be hemostatic. The peritoneum was closed with suture superiorly to inferiorly. The rectus muscles were made hemostatic with the use of electrocautery and brought together with figure-of-8 sutures of suture, the fascia was brought together with PDS loop from both angles in a running nonlocking suture, met at the midline, the subcutaneous tissues were irrigated, made hemostatic with use of electrocautery and brought together with 3-0 plain. Skin was closed with narendra. Patient tolerated this procedure well. Sponge, lap and needle counts were correct x two. Because of possible occult abruption, the placenta was submitted for pathologic exam. Holland Thomas MD CC: Orion Freitas MD, Holland Thomas ET REPAIRER Holland Thomas MD - 11/17/2016 8:57 PM CST OB NOTE Minimal change in cervix Increasing pitocin has lead to late decels RISK - C SECTION Patient counseled on risks, benefits, alternatives and expectations of section. Risks detailed to include, but not be limited to: Pain, bleeding, infection, anesthesia complications, possible injury to bowel, bladder, baby and/or adjacent tissues, possible need for blood transfusion (with 1/50,000 risk of bloodborne pathogen [HIV and/or Hepatitis B/C] transmission) or even hysterectomy. Patient voiced understanding of all R/B/A/E and has agreed to proceed with section for delivery if needed or recommended. Holland Thomas MD ET REPAIRER Historical Provider - 11/17/2016 8:15 PM CST 2013- Dr. Thomas updated on FHTs catgeroy I, most recent SVE results with no change, and patient requesting section. See new orders. Historical Provider - 11/17/2016 5:[address] Thomas updated on patient now feeling contraction pain, most recent SVE results, FHTs with minimal variability and late decelerations, and interventions for FHTs including pitocin dosage halved. No new orders at this time. Lyndsey Rick RN - 11/17/2016 10:00 AM CST Report received from Carey Johnson RN. Introduced myself to Keyla and that care assumed, Pt asking where Dr Thomas is and why he didn't come by this am. Discussed pitocin orders with her and she became agitated with this plan of care itdidn't work yesterday. She is planning on ordering breakfast now, discussed second day of pit very common. ET REPAIRER Lyndsey Rick RN - 11/17/2016 9:40 AM CST Keyla declined pitocin to be started until she speaks with Dr Thomas in person, She is agitated that she was not part of the dicision planning this morning. Dr Thomas paged. Returned call at 0950 he will be down to see her in the next 5-10 min aware that pitocin is not yet started. Keyla is aware that he will be coming and that he did stop by her room this morning but she was sound asleep so hedid not wake her. ET REPAIRER documented in this encounter H&P Notes Holland Thomas MD - 11/16/2016 5:51 PM CST OB ADMISSION Date: 11/16/2016 NAME: Keyla Porter : 1990 CC: I think that my water broke HPI: Keyla Porter is a 26 y.o. female, with single inter-uterine gestation at 36w3d, with Estimated Date of Delivery: 12/11/16. She presented to L&D with concern that her water had broken . has been complicated by third trimester bleeding.. Patient denies headache, visual changes, RUQ pain. She reports good movement. OB HISTORY OB History Para Term AB SAB TAB Ectopic Multiple Living 3 1 1 1 1 1 # Outcome Date GA Lbr Rob/2nd Weight Sex Delivery Anes PTL Lv 3 Current 2 Term 10/07/12 39w4d 7 lb 3 oz (3.26 kg) F Vag-Spont None N Y Comments: no pain meds, episiotomy - delivered by Adefris and Toppin 1 SAB 2007 16w0d Comments: D&C, subchorionic uterine bleeding and placental PAST MEDICAL HISTORY: Past Medical History Diagnosis Date ??? Abnormal Pap smear of cervix 2011 Repeat WNL ??? Allergic Morphine ??? Depression [...] a child PAST SURGICAL HISTORY: Past Surgical History Procedure Laterality Date ??? Iud removal 11/13/2015 laproscopic procedure ??? Colposcopy 2011 ??? Endometrial ablation during one of the laparotomies ??? Exploratory laparotomy 3x - last in 10/2015, 2010, Gyne surgeon in 2015 states no contraindication to vaginal per patient SOCIAL HISTORY Reviewed, patient denies smoking, alcohol and drug use She is . Father is involved MEDICATIONS No current facility-administered medications on file prior to encounter. Current Outpatient Prescriptions on File Prior to Encounter Medication Sig Dispense Refill ??? ferrous sulfate 325 (65 FE) MG tablet Take 1 tablet by mouth once as needed (takes twice per week). ??? hydrOXYzine (VISTARIL) 50 MG capsule Take 50 mg by mouth 4 (four) times a day as needed for itching. ??? metroNIDAZOLE (FLAGYL) 500 MG tablet Take 500 mg by mouth 2 (two) times a day. ??? oxyCODONE-acetaminophen (PERCOCET) 5-325 mg per tablet Take 1-2 tablets by mouth every 4 (four) hours as needed for pain. ??? PNV cmb#15-fgwg-[id number] acid ( COMPLETE) 14-400 mg-mcg Tab Take 1 tablet by mouth daily. 60 tablet 0 ALLERGIES Allergies Allergen Reactions ??? Blood-Group Specific Substance Other (See Comments) Warm autoantibodies present. Blood for transfusion will be delayed. Draw 3 lavender and 1 red tube for type and screen orders. ??? Morphine Nausea And Vomiting and Myalgia Nerve pain ROS: otherwise negative except what is stated in HPI. PHYSICAL EXAM Visit Vitals ??? BP 106/51 ??? Pulse 78 ??? Temp 98.6 ??F (37 ??C) ??? Resp 16 ??? Ht 5' 7 (1.702 m) ??? Wt 175 lb (79.4 kg) ??? LMP 02/29/2016 (Exact Date) ??? BMI 27.41 kg/m2 Gen: no acute distress, resting comfortably CV: acyanotic Heart: regular rate and rhythm Pulm: unlabored respirations, clear to ausculation bilaterally Abd: gravid, soft, nontender Cervix: closed Extremities: soft, nontender FHR: positive, category 1 [place]: irregular contractions LABS Labs Result Component Result Previous Result ABO/Rh External Result A Positive (05/19/2016) No Results ABORh A POS (09/27/2016) No Results Hemoglobin External Result 11.8 (05/19/2016) No Results IMPRESSION 26 y.o. at 36w3d single inter uterine at term complications include: third trimester bleeding spontaneous rupture of membranes PLAN - Admit to hospital - Proceed towards delivery - induction with Cytotec, - Augment with low dose pitocin, - epidural if patient desires and - Anticipate normal spontaneous vaginal delivery Holland Thomas MD ET REPAIRER documented in this encounter Miscellaneous Notes Op Note - Holland Thomas MD - 11/17/2016 11:11 PM CST PROCEDURE NOTE: NAME: Keyla Porter RECORD # [id number] ADMIT DATE: 11/16/2016 DATE OF SERVICE: 11/21/2016 PREOPERATIVE DIAGNOSIS: failure to progress: arrest of dilation;Prolonged PROM;IUP at 36+ weeks;Hx of unexplained third trimester bleeding PROCEDURE: Low transverse section SURGEON: Holland Thomas GAUGE INSPECTOR: OR Staff ANESTHESIA: spinal ESTIMATED BLOOD LOSS: 1000 mL from 11/17/2016 9:26 PM to 11/17/2016 10:20 PM 1000cc DRAINS: Toney catheter. COMPLICATIONS: Possible occult abruption FINDINGS: Normal uterus, tubes and ovaries bilateral. Normal appearance to the adnexae. Live infant born, Apgars of 9 at 1 minute, 9 at 5 minutes, Weight (oz): 114 oz. CONSENT: Patient was met preoperatively where we discussed the procedure and the risks associated with the procedure. She understood these to include but not limited to injury to adjacent organs including bowel, bladder, ureter, infection and bleeding. Understanding these risks her consents were signed. PROCEDURE: Patient was brought to the operating room in stable condition. After induction of a spinal anesthetic, heart tones were checked and were stable. She was prepped and draped in sterile fashion for the procedure. A timeout was then performed. A pfannensteil skin incision was made to the level of the fascia. The fascia was incised laterally. Nalini clamps were applied to the superior aspect of the incision which was sharply dissected from the rectus muscles. The nalini clamps were then reapplied to the inferior aspect of the incision which was similarly sharply dissected from the rectus muscles. The rectus muscles were bluntly inthe midline. The peritoneum was entered sharply. This incision was then extended. A bladder blade was introduced. The vesicouterine peritoneum was identified and a bladder flap was was created. A low transverse uterine incision was made and amniotic sac was ruptured revealing bloody amniotic fluid. The amount of blood was significant and the possibility of occult abruption was entertained. The baby'shead was then delivered.There was not a nuchal cord noted. There was a spontaneous cry and thereforebulb suction was performed. The remainder of the infant was easily delivered. The cord was clamped x2 and cut and the infant handed off to waiting nursing personnel. The placenta was then manually removed from the uterus. The uterus was exteriorized, covered with a moist laparotomy sponge and cleared of all clots and debris. The uterine incision was closed with 0 chromic from both angles in a running locking suture and A second imbricating suture of 0 was used for hemostasis. The uterus was returned to the abdominopelvic cavity. The pericolic gutters were clearedof all clots and debris. The uterine incision was again inspected and noted to be hemostatic. The peritoneum was closed with suture superiorly to inferiorly. The rectus muscles were made hemostatic with the use of electrocautery and brought together with figure-of-8 sutures of suture, the fascia was brought together with PDS loop from both angles in a running nonlocking suture, met at the midline, the subcutaneous tissues were irrigated, made hemostatic with use of electrocautery and brought together with 3-0 plain. Skin was closed with narendra. Patient tolerated this procedure well. Sponge, lap and needle counts were correct x two. Because of the possible occult abruption, the placenta was sent to pathology. Holland Thomas MD CC: Orion Freitas MD, Holland Thomas ET REPAIRER documented in this encounter Plan of Treatment Not on filedocumented as of this encounter Procedures Procedure Name Priority Date/Time Associated Comments Diagnosis LAB RESULT - HIM SCAN 11/19/2016 10:24 AM RUSSET REPAIRER HIV ANTIGEN ANTIBODY Routine 11/18/2016 12:29 Res ults for this COMBO AM RUSSET REPAIRER procedure are i n the results section. HEPATITIS B SURFACE Routine 11/18/2016 12:29 Resu lts for this ANTIGEN AM RUSSET REPAIRER procedure are i n the results section. SURGICAL PATHOLOGY EXAM Routine 11/17/2016 11:33 Results for this PM RUSSET REPAIRER procedure are i n the results section. ANTIBODY IDENTIFICATION Routine 11/17/2016 8:48 PM Results for this RUSSET REPAIRER procedure are i n the results section. REFERENCE LAB WORKUP Routine 11/17/2016 8:48 PM R esults for this ([facility]) RUSSET REPAIRER procedure are i n the results section. TREPONEMA ABS W REFLEX Routine 11/16/2016 5:57 AM Results for this TO RPR AND TITER RUSSET REPAIRER procedure a re in the results section. TREPONEMA PALLIDUM Routine 11/16/2016 5:57 AM Res ults for this ANTIBODY CONFIRM RUSSET REPAIRER procedure a re in the results section. documented in this encounter Results LAB RESULT - HIM SCAN (11/19/2016 10:24 AM RUSSET REPAIRER) Specimen (Source) Anatomical Location Collection Method / Collectio n Time Received Time / Laterality Volume Narrative This result has an attachment that is no t available. Historical Provider NON-BEAKER LAB TESTING Hepatitis B surface antigen (11/18/2016 12:29 AM RUSSET REPAIRER) Analysis Performed At Patho logist Time Signature Hepatitis B Negative Negative 11/18/2016 HEALTH Surface 2:[address] [facility] LABORATORY Specimen Anatomical Collection Method / Collection Time Recei cooper Time (Source) Location / Volume Laterality Blood specimen Venipuncture / 11/18/2016 12:29 11/18/ 016 (specimen) Unknown AM RUSSET REPAIRER 12:14 PM RUSSET REPAIRER Holland Thomas MD LAB - BLOOD ORDERABLES Performing Organization Address City/State/[facility] Code Phon e [place] [address] [address] [facility] HIV Antigen Antibody Combo (11/18/2016 12:29 AM RUSSET REPAIRER) Analysis Performed At Patho logist Time Signature HIV Antigen Negative Negative 11/18/2016 [facility] Antibody Combo 1:31 PM RUSSET REPAIRER [facility] Specimen Anatomical Collection Method / Collection Time Recei cooper Time (Source) Location / Volume Laterality Blood specimen Venipuncture / 11/18/2016 12:29 016 (specimen) Unknown AM RUSSET REPAIRER 12:14 PM RUSSET REPAIRER Holland Thomas MD LAB - BLOOD ORDERABLES Performing Organization Address City/[facility] Phon [place] [address] [address] [facility] Surgical Pathology Exam (11/17/2016 11:33 PM RUSSET REPAIRER) [facility] gist Method Time Signature Case Report Surgical Pathology ?Case: [id number] ? 11/19/2016 [facility] Authorizing Provider: ??Jody Thomas MD ?Collected: ? 11/17/2016 2333 ? 10:23 AM [facility] Ordering Location: ? [facility] ?Received: ?11/18/2016724 ? RUSSET REPAIRER [facility] ? LABORATORY Pathologist: ? Chris Page MD PhD ? Specimen: ?Placenta ? Final PLACENTA, DELIVERY 11/19/2016 HEALTH Diagnosis ??- MILD TO MODERATE STAGE 1 CHORIOAMNIONITIS 10:23 AM [facility] ??- PATCHY SECONDARY VILLOUS EDEMA RUSSET REPAIRER [facility] ??- THREE-VESSEL UMBILICAL CORD WITH NO EVIDENCE OF FUNISIT IS LABORATORY ??- VILLOUS MATURATION CONSISTENT WITH LATE THIRD TRIMESTER ??- PLACENTAL WEIGHT IS AT THE 50TH PERCENTILE FOR GESTATIO NAL AGE Electronically signed by Chris Page MD PhD on 6 at 10:23 AM Clinical Clinical history: See comments 6 M [facility] Information Reason for procedure: Suspected abruption 10:23 AM [facility] Time placed in formalin: NA RUSSET REPAIRER [facility] Comment Order Information for the patient's : Regi Porter-Darryl flores [[id number]] Date and Time of Delivery: 11/17 ??9:50 PM Type of delivery: , Low Vertical Delivering Provider: Birthing Room/OR: [facility] OR 2 Clinical Information Gender: Female Living Status: ??Yes [1] Birthweight: 114 ounces Apgars Infant 1: ??1 minute: 9 ??[9] ?5 minutes: 9 ??[9] Cord Complications: Fluid Color: Clear [1] Amniotic Fluid Amount: Normal Maternal Clinical Information Estimated Date of Delivery: 12/11/16 Gestational Age: ??36w4d : ? /Intapartum History: Eclampsia: No; Hypertension : No; Drug Use: No; Smoker: Yes; Diabetes: No; Abnormal Bleeding: Yes; Maternal Fever: No Additional Clinical Informat ion: ??36 week 4 day gestation, PPROM for almost 48 hours Describe cords if multiple : N/A Gross The specimen is labeled with the patient's name, received unfixed transferred to formalin at 7:12 am on November 18, consisting of a 22 x 17 x 2 cm placental disc with marginally attached crump-pink membr 11/19/2016 [facility] Description anes and a centrally phosphatic fertilizer supervisor d three-vessel umbilical cord, with a mild helical pattern, 37 cm long and 1.5 cm in average diameter. There is no discoloration or opacification of the membranes. The matern 10:23 AM [facility] al surface shows a mildly di srupted cotyledonous architecture. The surface has the usual branching vascular pattern without abnormality. The cut surface shows maroon spongy tissue without abnormal CS T [facility] ity. Without the cord and me mbranes the disc is 450 grams. Storage Administrator sections are submitted. LABORATORY BLOCK LABELS: 1) Umbilical c ord and membranes; 2) Peripheral edge of placental disc; 3) More central portion of placental disc ??CTM:dls Charges CPT: 10780 11/19/2016 [facility] ICD-10:O41.1230 10:23 AM [facility] LAB[facility] Result Flag Normal 11/19/2016 [facility] 10:23 AM [facility] Comment: SPECIMEN PROCESSING: All histology slide preparation and stai ns; and cytology slide preparation, staining, and cyanide case hardener screening done at [facility] are performed at [facility], [address] [place] [address], [id number], with final interpretatio n, frozen section analysis, and cytology adequacy assessment at indicated laboratory. Specimen Anatomical Collection Method Collection Time Receive d Time (Source) Location / / Volume Laterality Tissue specimen PLACENTAL 11/17/2016 11:33 11/18/20 16 7:25 (specimen) STRUCTURE / PM RUSSET REPAIRER AM RUSSET REPAIRER Unknown Holland Thomas MD LAB - BEAKER AP Performing Organization Address City/[facility] Phon e Number [facility] LAB[facility] [place] [address] [address] [facility] [address] [place] [address] LABORATORY Antibody identification (11/17/2016 8:48 PM RUSSET REPAIRER) [facility] Method Time Signature ANTIBODY REFERRED FOR 11/17/2016 JN BLOOD UNIDENTIFIED I.D. 10:24 PM RUSSET REPAIRER BANK Specimen Anatomical Collection Method / Collection Time Recei cooper Time (Source) Location / Volume Laterality Blood specimen STRUCTURE OF LEFT Venipuncture / 11/17/2016 8:48 8:54 (specimen) UPPER LIMB / Unknown PM RUSSET REPAIRER PM RUSSET REPAIRER Unknown Holland Thomas MD LAB - BLOOD BANK TEST ORDER Performing Organization Address City/[facility] Phon e Number N BLOOD BANK [address] [place] [address] BLOOD BANK [address] [place] [address] Reference Lab Workup ([facility]) (11/17/2016 8:48 PM RUSSET REPAIRER) [facility] Ref Lab Antibody See scanned 11/23/2016 [facility] Identification report 1:49 PM RUSSET REPAIRER BLOOD RESOURCES Specimen Anatomical Collection Method / Collection Time Recei cooper Time (Source) Location / Volume Laterality Blood specimen Venipuncture / 11/17/2016 8:48 11/23/19 17 8:28 (specimen) Unknown PM RUSSET REPAIRER AM RUSSET REPAIRER Narrative This result has an attachment that is no t available. Holland Thomas MD LAB - [facility] Performing Organization Address City/State/ZIP Code Phon e Number [facility] [place] [address] [address] [facility]/PENDING SALE TO [facility] BLOOD [address] [place] [address] RESOURCES (ABNORMAL) Treponema Abs w Reflex to RPR and Titer (11/16/2016 5:57 AM RUSSET REPAIRER) [facility] Syphilis Reactive (A) Non-React 11/16/2016 [facility] Screen monique 11:06 AM RUSSET REPAIRER [facility] LABORATORY Specimen Anatomical Collection Method / Collection Time Recei cooper Time (Source) Location / Volume Laterality Blood specimen Venipuncture / 11/16/2016 5:57 11/16/20 16 8:21 (specimen) Unknown AM RUSSET REPAIRER AM RUSSET REPAIRER Holland Thomas MD LAB - BLOOD ORDERABLES Performing Organization Address City/[facility]/ZIP [place] [address] [address] [facility] LABORATORY Treponema pallidum antibody confirm (11/16/2016 5:57 AM RUSSET REPAIRER) [facility] See Scanned See Scanned 11/21/2016 [place] Result Report 8:01 AM RUSSET REPAIRER DEPARTMENT OF HEALTH Specimen Anatomical Collection Method / Collection Time Recei cooper Time (Source) Location / Volume Laterality Blood specimen Venipuncture / 11/16/2016 5:57 11/16/20 16 (specimen) Unknown AM RUSSET REPAIRER 11:10 AM RUSSET REPAIRER Narrative This result has an attachment that is no t available. Holland Thomas MD LAB - BLOOD ORDERABLES Performing Organization Address City/State/ZIP Code Phon e Number [place] [facility] [place] [address] [facility] Lab Building [address] [address] [place] [address] [facility] LOADING DOCK documented in this encounter Visit Diagnoses Diagnosis Delivered by section documented in this encounter Additional Health Concerns Assessment Noted Time PHQ-9 Depression Total Score: 19 09/04/2015 7:20 AM CD T documented as of this encounter Care Teams Animal Control Supervisor Relationship Specialty Start Date End Date No Ref-Primary, Physician PCP - General 07/27/15 04/14/20 documented as of this encounter
--- OUTSIDE RECORDS SUMMARY | 2022-08-31 22:25 | XMS_ITS | Encounter Summary ---
:1990 Author Organization [place] Address [address] [place] [address] Care Team Providers Name Role Phone No Ref-Primary, Physician Primary Care Provider [phone] Reason for Visit Reason Comments Fever Encounter Details Date Type Department Care Team Description 11/21/2016 Emergency [facility] Song Jansen MD Postoperative fever [facility] Emergency [address] [place] [address] [place] [address] [place] [address] [address] [id number] [phone] Social History Tobacco Use Types Packs/Day Years [...] - - Weight 80.7 kg (178 lb) 11/21/2016 1:30 AM GARBAGE COLLECTION SUPERVISOR Height 170.2 cm (5' 7) 11/21/2016 1:30 AM GARBAGE COLLECTION SUPERVISOR Body Mass Index 27.88 11/21/2016 1:30 AM GARBAGE COLLECTION SUPERVISOR documented in this encounter Medications at Time of Discharge Medication Sig Dispensed Refills Start Date End Date Vit-Fe Take 1 tablet by 0 04/07/201603/2018 Fumarate-FA ( mouth daily COMPLETE) 14-0.4 MG TABS documented as of this encounter ED Notes Issa Jansen MD - 11/21/2016 1:51 AM CST eMERGENCY dEPARTMENT eNCOUnter CHIEF COMPLAINT Chief Complaint Patient presents with ??? Fever HPI Keyla Porter is a 26 y.o. female who presents for evaluation of fevers. Patient had delivery on November 17 without difficulties. She went home feeling well. Tonight while sleeping with her boyfriend he noted her to be very hot. He took her temperature with a digital thermometer was 101.8. He placed a call the nursing hot line and waited for response. When returning to his girlfriend's side she still felt quite hot. He retook her temperature and it was slightly higher at 102.4. She awakened at this point with a thermometer in my mouth. She reports feeling well other than slight achiness in her low back and slowly improving and discomfort from her incision. She also has fullness in her breast but no obvious pain. REVIEW OF SYSTEMS Positive fevers. No vomiting, diarrhea, dysuria, frequency, vaginal discharge. No cough or shortnessof breath. No headache. Remainder review of systems otherwise negative PAST MEDICAL HISTORY Past Medical History Diagnosis Date ??? Abnormal [...] as a child SURGICAL HISTORY Past Surgical History Procedure Laterality Date ??? Iud removal 11/13/2015 laproscopic procedure ??? Colposcopy 2011 ??? Endometrial ablation during one of the laparotomies ??? Exploratory laparotomy 3x - last in 10/2015, 2010, Gyne surgeon in 2015 states no contraindication to vaginal per patient ??? section N/A 11/17/2016 Procedure: SECTION; Surgeon: Holland Thomas MD; Location: [facility] L[facility] OR; Service: CURRENT MEDICATIONS [email or web address] Allergies Allergen Reactions ??? Blood-Group Specific [...] ??? Not on file Social History Narrative PHYSICAL EXAM VITAL SIGNS: Visit Vitals ??? BP 135/70 (Patient Position: Sitting) ??? Pulse (!) 105 ??? Temp 99.1 ??F (37.3 ??C) (Oral) ??? Resp 16 ??? Ht 5' 7 (1.702 m) ??? Wt 178 lb (80.7 kg) ??? LMP 02/29/2016 (Exact Date) ??? SpO2 99% ??? BMI 27.88 kg/m2 Constitutional: Well developed, well nourished, female in mild distress Eyes: PERRL, conjunctiva normal HENT: Atraumatic, external ears normal, nose normal, oropharynx moist. Neck supple Respiratory: No respiratory distress, normal breath sounds Cardiovascular: Normal rate, normal rhythm, no murmurs, no gallops, no rubs GI: Normoactive soft. Mild. Incisional tenderness. Incision well approximated with minimal erythema at the wound and she did no fluctuance. : Minimal suprapubic tenderness. Musculoskeletal: No edema Integument: Well hydrated Neurologic: Alert & oriented x 3, no focal deficits Results for orders placed or performed during the hospital encounter of 11/21/16 Urinalysis-UC if Indicated Result Value Ref Range Color, UA Yellow Colorless, Yellow, Straw, Light Yellow Clarity, UA Clear Clear Glucose, UA Negative Negative Bilirubin, UA Negative Negative Ketones, UA Negative Negative, 60 mg/dL Specific Lena, UA 1.008 1.001 - 1.030 Blood, UA Negative Negative pH, UA 6.5 4.5 - 8.0 Protein, UA Negative Negative mg/dL Urobilinogen, UA <2.0 E.U./dL <2.0 E.U./dL, 2.0 E.U./dL Nitrite, UA Negative Negative Leukocytes, UA Negative Negative ED COURSE & MEDICAL DECISION MAKING Pertinent Labs & Imaging studies reviewed. (See chart for details) Patient is a typically healthy 26-year-old female who had performed on November 17. She presents tonight with reports of fever of 102.4 at home. This was discovered by her boyfriend awakened next heroin and she was feeling hot. Patient denies any significant breast pain. She does report fullness but no pain. She does have discomfort associated with her incision but this is improving. She denies any urinary symptoms. She does not have cough. Presentation consistent more with simple viral process. Urinalysis is unremarkable. I do not suspect endometritis nor cellulitis given her exam. Beltran mmendations are for aggressive treatment of fevers with Tylenol and follow-up with her ObGyn in 24 hours. She is to return should her symptoms worsen. FINAL IMPRESSION 1. Fever 2. Recent Issa Jansen MD 11/21/16 0217 AGE COLLECTION SUPERVISOR Issa Jansen MD - 11/21/2016 12:22 AM CST Patient is a 26-year-old female who delivered November 17 by . Tonight she has fevers of 102. She is in route to the emergency room per Dr. Dickinson who is on-call for ObGyn. Issa Jansen MD 11/21/16 0023 Issa Jansen MD 11/21/16 0151 AGE COLLECTION SUPERVISOR documented in this encounter Plan of Treatment Not on filedocumented as of this encounter Visit Diagnoses Diagnosis Postoperative fever Postprocedural fever documented in this encounter Additional Health Concerns Assessment Noted Time PHQ-9 Depression Total Score: 19 09/04/2015 7:20 AM CD T documented as of this encounter Care Teams Asp Net Mvc Developer Relationship Specialty Start Date End Date No Ref-Primary, Physician PCP - General 07/27/15 04/14/20 documented as of this encounter
--- OUTSIDE RECORDS SUMMARY | 2022-08-31 22:25 | XMS_ITS | Encounter Summary ---
:1990 Author Organization [place] Address [address] [place] [address] Care Team Providers Name Role Phone No Ref-Primary, Physician Primary Care Provider [phone] Encounter Details Date Type Department Care Team Description 12/01/2016 Hospital Encounter [facility] Provider, Histo rical Breast abscess U [address] [place] [id number] Social History Tobacco Use Types Packs/Day [...] Priority Date/Time Associated Diagnosis Comme nts US BREAST LEFT Routine 12/01/2016 9:37 AM Breast abscess Resul ts for this LIMITED 1-3 JOINT CUTTER procedure are i n QUADRANTS the results section. documented in this encounter Results US Breast Left Limited 1-3 Quadrants (12/01/2016 9:37 AM JOINT CUTTER) Anatomical Region Laterality Modality Breast Left Other Specimen (Source) Anatomical Location Collection Method / Collectio n Time Received Time / Laterality Volume Impressions 12/01/2016 10:02 AM JOINT CUTTER No sign of neoplasia or abscess. ACR BI-RADS Category 2: Benign. ?? Narrative 12/01/2016 10:02 AM JOINT CUTTER US BREAST LIMITED (FOCAL) LEFT 12/01/2016 9:37 AM INDICATION: Pain on the left without red ness or fever since on November 17. COMPARISON: Contralateral side ULTRASOUND FINDINGS: Ample hypoechoic pa renchyma with some small ducts. No phlegmon or abscess. Findings are not significantly different than the normal right side. Procedure Note Josh Savage MD - 04/27/2021Formattin g of this note might be different from the original. US BREAST LIMITED (FOCAL) LEFT 12/01/2016 9:37 AM INDICATION: Pain on the left without red ness or fever since on November 17. COMPARISON: Contralateral side ULTRASOUND FINDINGS: Ample hypoechoic pa renchyma with some small ducts. No phlegmon or abscess. Findings are not significantly different than the normal right side. IMPRESSION: No sign of neoplasia or abscess. ACR BI-RADS Category 2: Benign. Historical Provider IMG US ORDERABLES documented in this encounter Visit Diagnoses Diagnosis Breast abscess Inflammatory disease of breast documented in this encounter Additional Health Concerns Assessment Noted Time PHQ-9 Depression Total Score: 19 09/04/2015 7:20 AM CD T documented as of this encounter Care Teams Litigation Assistant Relationship Specialty Start Date End Date No Ref-Primary, Physician PCP - General 07/27/15 04/14/20 documented as of this encounter
--- OUTSIDE RECORDS SUMMARY | 2022-08-31 22:25 | XMS_ITS | Encounter Summary ---
:1990 Author Organization [place] Address [address] [place] [address] Care Team Providers Name Role Phone No Ref-Primary, Physician Primary Care Provider [phone] Holland Thomas MD Primary Care Provider [phone] Encounter Details Date Type Department Care Team Description 11/20/2016 Home Care/Hospice - [facility] Provider, [facility] [address] [place] [address] [address] [place] [address] Social History Tobacco Use Types Packs/Day Years [...] documented as of this encounter Care Teams Money Manager Relationship Specialty Start Date End Date No Ref-Primary, Physician PCP - General 07/27/15 04/14/20 Holland Thomas MD PCP - General final finisher forging dies 04/15/20 [address] [place], [place] [id number] documented as of this encounter
--- OUTSIDE RECORDS SUMMARY | 2022-08-31 22:25 | XMS_ITS | Encounter Summary ---
:1990 Author Organization [place] Address [address] [place] [address] Care Team Providers Name Role Phone No Ref-Primary, Physician Primary Care Provider [phone] Holland Thomas MD Primary Care Provider [phone] Encounter Details Date Type Department Care Team Description 11/29/2016 [facility] [place] Provider, [facility] [address] [place] [address] Social History Tobacco Use Types Packs/Day [...] as of this encounter Visit Diagnoses Diagnosis Breast abscess Inflammatory disease of breast documented in this encounter Additional Health Concerns Assessment Noted Time PHQ-9 Depression Total Score: 19 09/04/2015 7:20 AM CD T documented as of this encounter Care Teams Firmware Software Verification Engineer Relationship Specialty Start Date End Date No Ref-Primary, Physician PCP - General 07/27/15 04/14/20 Holland Thomas MD PCP - General hammerer helper 04/15/[address] [place] [id number] documented as of this encounter
--- OUTSIDE RECORDS SUMMARY | 2022-08-31 22:25 | XMS_ITS | Encounter Summary ---
:1990 Author Organization [place] Address [address] [place] [address] Care Team Providers Name Role Phone No Ref-Primary, Physician Primary Care Provider Reason for Visit Reason Comments Vaginal Bleeding Encounter Details Date Type Department Care Team Description 09/25/2016 - Hospital Encounter [facility] William Holland Neris ginal bleeding during , antepartum; 10/10/2016 [facility] Valente MD Pelvic pain Maternity Care [address] [place] [id number] [phone] Social History Tobacco Use Types Packs/Day Years [...] - Inhaled Oxygen Concentration - - Weight 73.9 kg (163 lb) 09/25/2016 10:35 AM CDT Height 170.2 cm (5' 7) 09/25/2016 10:35 AM CDT Body Mass Index 25.53 09/25/2016 10:35 AM CDT documented in this encounter Discharge Summaries Lluvia Dickinson DO - 10/10/2016 11:37 AM CST ANTEPARTUM DISCHARGE SUMMARY Patient Name: Keyla Porter Date of : 1990 Primary Physician: Orion Puente MD Admission Date: 09/25/2016 Discharge date: 10/10/2016 Gestational age at discharge: 34w6d Reason for admission: vaginal bleeding Diagnosis: vaginal bleeding in 3rd trimester Procedures completed while in hospital: Ultrasound Diagnostic imaging: Us Ob Limited Result Date: 09/27/2016 ULTRASOUND LIMITED OBSTETRICAL 09/27/2016 12:05 PM INDICATION: Continued vaginal bleeding at 29 weeks. TECHNIQUE: Transabdominal COMPARISON: 09/25/2016 and older studies. FINDINGS: POSITION: Cephalic PLACENTA LOCATION: Anterior without evidence of a subplacental hematoma. AMNIOTIC FLUID: 19.7. Cervix is closed and of normal length. Dependently, adjacent to the internal cervical os, patient has developed a thin echogenic, layer within the amniotic fluid. This measures 1.8 cm in length and 3 mm inthickness was not seen on the prior study. The superior wall of the bladder is again noted to have aslightly lobulated appearance. This is similar to the most recent study but is not appreciated on the prior exams. HEART RATE: 157 bpm CONCLUSION: 1. Single, living intrauterine gestation in cephalic presentation. 2. Placenta is anterior without evidence of previa or subplacental hematoma. There is minimal, slightly echogenic layeringmaterial dependently along the internal cervical os as described above which is new. This may reflect a tiny amount of hemorrhage. 3. As seen before, the superior wall of the bladder has a slightly lobulated appearance, not appreciated on the earlier OB ultrasounds. It's uncertain if these may reflectsome pelvic varices in this region. Follow-up of the maternal bladder could be done postnatally. NOTE: ABNORMAL REPORT THE DICTATION ABOVE DESCRIBES AN ABNORMALITY FOR WHICH FOLLOW-UP IS NEEDED. Us Ob Limited Result Date: 09/25/2016 ULTRASOUND LIMITED OBSTETRICAL 09/25/2016 11:59 AM INDICATION: vaginal bleeding, assess low lying placenta, CELSA, position TECHNIQUE: Transabdominal and endovaginal ultrasound. COMPARISON: Ultrasound 07/27/2016. FINDINGS: POSITION: Vertex PLACENTA LOCATION: Anterior. Inferior placental edge is6.3 cm from the internal os which is normal. AMNIOTIC FLUID: 18 cm HEART RATE: 138 bpm No abnormalities. CONCLUSION: 1. Normal placental location. 2. No bleeding etiology found. Us Biophysical Profile Result Date: 10/04/2016 BIOPHYSICAL PROFILE 10/04/2016 4:22 PM INDICATION: Vaginal bleeding. COMPARISON: 09/30/2016 and 09/27/2016 ultrasounds. FINDINGS: Single living fetus, vertex presentation. Heart rate of 150 beats per minute. CELSA 16 cm. Placenta location anterior. No hemorrhage adjacent the cervical os is visualized. 2/2 movements 2/2 tone 2/2 breathing 2/2 amniotic fluid Total biophysical profile 06/28 CONCLUSION: Normal 06/28 biophysical profile. No hemorrhage seen. Us Biophysical Profile Result Date: 09/30/2016 BIOPHYSICAL PROFILE 09/30/2016 8:44 AM INDICATION: small hem noted on previous ultrasound COMPARISON: 09/27/2016 FINDINGS: Single living fetus, breech presentation. Heart rate of 143 beats per minute. CELSA 13.3 cm. Placenta location anterior. 2/2 movements 2/2 tone 2/2 breathing 2/2 amniotic fluid Total biophysical profile 06/28 Debris previously seen layering by the cervical os is no longer visualized. CONCLUSION: Normal 06/28 biophysical profile. Fetus is now in breech presentation. The patient's maternity care nurse, Nakita, was notified of this at the time of dictation. Us Abdomen Limited Result Date: 09/27/2016 US ABDOMEN LIMITED 09/27/2016 12:05 PM INDICATION: RUQ pain/R flank pain COMPARISON: None. FINDINGS: GALLBLADDER: Normal, without cholelithiasis. BILE DUCTS: No bile duct dilation. The common hepatic duct measures 2 mm. LIVER: Normal where seen. RIGHT KIDNEY: No hydronephrosis. PANCREAS: Not imaged in d etail on this limited study. No incidental abnormalities. No ascites in the right upper quadrant. CONCLUSION: 1. Normal RUQ ultrasound. Us Biophysical Profile W Est Weight Result Date: 10/07/2016 US BIOPHYSICAL PROFILE W EST WEIGHT 10/07/2016 12:33 PM INDICATION: h/o bleeding in this with ? blood noted on previous ultrasound COMPARISON: Biophysical profile 3 days ago. FINDINGS: Single living fetus, breech presentation. Heart rate of 147 beats per minute. CELSA 23.1 cm. 2/2 m ovements 2/2 tone 2/2 breathing 2/2 amniotic fluid Total biophysical profile 06/28 BIOMETRY: Biparietal Diameter: 7.9 cm, 31 weeks 5 days Head Circumference: 29.6 cm, 32 weeks 6 days Abdominal Circumference: 26.5 cm, 30 weeks 5 days Femur Length: 5.7 cm, 30 weeks 1 day Estimated Weight: 1624 +/- 237 g EFW Percentile: 54 percent Cervical Length: 4.2 cm EDC by First US exam: 12/11/2016 EDC by This US exam: 12/06/2016 Composite Age by First US: 30 weeks 5 days Composite Age by This US: 31weeks 3 days CONCLUSION: 1. Normal 06/28 biophysical profile. 2. Single intrauterine gestation 31 weeks 3 days. There is normal interval growth. 3. First ultrasound EDC 12/11/2016. 4. No hemorrhage seen. Consults: OB - [facility] COURSE: Keyla Porter is a 26 y.o. female, whose Estimated Date of Delivery: 12/11/16. Patient was admitted at 29 weeks gestation for vaginal bleeding. She was admitted and monitored closely x2wks Today patient is 31w1d gestation. States she feels well and is ready for discharge. Patient reports no new complaints. She reports good movement today. She denies contractions, cramping, pelvic pressure, backache. She denies vaginal bleeding and denies vaginal discharge. She is voiding without di fficulty. Has a normal appetite, is tolerating a general diet, and denies constipation. She denies headache, blurred vision, shortness of breath, chest pain or epigastric pain, nausea, and pain in her lower extremities. She will be discharged today to home in good condition. Recommendations going forward include return for worsen symptoms or return of vaginal bleeding. DISPOSITION: Home DISCHARGE CONDITION: Good/Stable DISCHARGE MEDICATIONS: Medication List CONTINUE taking these medications ferrous sulfate 325 (65 FE) MG tablet PNV cmb#[id number] acid 14-400 mg-mcg Tab Commonly known as: COMPLETE Take 1 tablet by mouth daily. ASK your doctor about these medications docusate sodium 100 MG capsule Commonly known as: COLACE Take 1 capsule (100 mg total) by mouth 2 (two) times a day for 10 days. Ask about: Should I take this medication? hydrOXYzine 50 MG capsule Commonly known as: VISTARIL Take 1 capsule (50 mg total) by mouth every 6 (six) hours as needed. Ask about: Should I take this medication? oxyCODONE-acetaminophen 5-325 mg per tablet Commonly known as: PERCOCET Take 1-2 tablets by mouth every 4 (four) hours as needed. Ask about: Should I take this medication? Where to Get Your Medications These medications were sent to [id number] - [place] - [address] [facility] [facility] [address] ??? hydrOXYzine 50 MG capsule ??? oxyCODONE-acetaminophen 5-325 mg per tablet You can get these medications from any pharmacy You don't need a prescription for these medications ??? docusate sodium 100 MG capsule DISCHARGE PLAN: - Follow up with Dr Thomas, in 2 weeks - Take medication as prescribed - Physical activity: As directed per provider - Diet: Regular - Medication: Please see MAR - Warning signs discussed with patient about when to call the clinic/hospital - Reviewed signs and symptoms of labor. - All questions and concerns were answered for the patient prior to discharge. Lluvia Dickinson I saw the patient on the date of discharge Total time spent for discharge on date of discharge: 20 minutes Physician(s) in addition to primary physician who should receive a copy: CC: Orion Puente MD. HE CNMs ULTING SERVICES MANAGER documented in this encounter Medications at Time of Discharge Medication Sig Dispensed Refills Start Date End Date Vit-Fe Take 1 tablet by 0 04/07/201603/2018 Fumarate-FA ( mouth daily COMPLETE) 14-0.4 MG TABS documented as of this encounter Progress Notes Jeanna Luke - 10/10/2016 10:24 AM CST into to see pt. Went over discharge orders with her will be sending note for her work to no longer work she acknowledged understanding is excited to go home. Has no complaints of pain,headache or visual disturbance. ULTING SERVICES MANAGER Lluvia Dickinson DO - 10/10/2016 9:12 AM CST OB ANTEPARTUM PROGRESS NOTE IUP at 31w1d, admitted for vaginal bleeding SUBJECTIVE: Patient feels well. She has no new complaints. Patient states the baby is active, and is completing kick counts. States that she is experiencing no contractions. Patient denies headache, change in vision or upper abdominal pain. She denies vaginal bleeding. denies leaking of fluids. denies change in discharge. OBJECTIVE: Visit Vitals ??? BP 105/46 ??? Pulse 69 ??? Temp 98.1 ??F (36.7 ??C) (Oral) ??? Resp 14 ??? Ht 5' 7 (1.702 m) ??? Wt 163 lb (73.9 kg) ??? LMP 02/29/2016 (Exact Date) ??? SpO2 99% ??? BMI 25.53 kg/m2 Abd: gravid NST: reactive TOCO: acontractile LABS: OB LABS: Labs Result Component Result Previous Result ABO/Rh External Result A Positive (05/19/2016) No Results ABORh A POS (09/27/2016) No Results Hemoglobin External Result 11.8 (05/19/2016) No Results LABS: GBS unknown MEDICATIONS: Current Facility-Administered Medications: ??? docusate sodium capsule 100 mg (COLACE), 100 mg, Oral, BID, Rosa Sharpe PA-C, 100 mg at 10/09/162117 ??? ferrous sulfate tablet 325 mg, 325 mg, Oral, Daily with brkfst, Rosa Sharpe PA-C, 325 mg at 10/09/16 1144 ??? hydrOXYzine capsule 200 mg (VISTARIL), 200 mg, Oral, Bedtime PRN, Holland Thomas MD, 200 mg at112/09/152118 ??? hydrOXYzine capsule 50 mg (VISTARIL), 50 mg, Oral, Q6H PRN, Carlie Manzo MD ??? lactated ringers, 0-500 mL/hr, Intravenous, Continuous, Kerri Casey, AMMUNITION ASSEMBLY I LABORER,CNM, 0 mL/hr at 09/25/16 1100 ??? naloxone injection 0.04-0.1 mg (NARCAN), 0.04-0.1 mg, Intravenous, PRN OR naloxone injection0.1-0.4 mg (NARCAN), 0.1-0.4 mg, Intramuscular, PRN, Holland Thomas MD ??? oxyCODONE-acetaminophen 5-325 mg 1-2 tablet (PERCOCET), 1-2 tablet, Oral, Q4H PRN, Holland Thomas MD, 1 tablet at 10/10/16 0202 ??? polyethylene glycol packet 17 g (MIRALAX), 17 g, Oral, Daily PRN, Alberto Guevara MD ??? vitamin iron-folic acid 27mg-0.8mg tablet 1 tablet ( S), 1 tablet, Oral, DAILY,Rosa Sharpe PA-C, 1 tablet at 10/09/162118 ASSESSMENT: 26 y.o. at 30w6d vaginal bleeding in 3rd trimester - resolved + antibody - warm auto antibody, Connie negative, E negative anemia of Hip pain ?? PLAN: ANTEPARTUM - 31w1d - admit to hospital - continue bed rest with bathroom priledges - may have wheel chair rides/ may shower ?? RUQ pain - describes as a pulling sensation - resolved currently - US normal - labs within in normal limits ?? Right hip pain - improved - PT consult - percocet PRN - did discuss ramifications of being on narcotics in ?? + antibody - warm auto antibody ,[place] negative, E negative, noted on - discussed with pathology ?? Vaginal bleeding - ? Small abruption - resolved - denies contractions - slightly echogenic layering material dependently along the internal cervical os as described abovewhich is new. This may reflect a tiny amount of hemorrhage - RESOLVED - not noted on 10/07 ultrasound - patient has been stable for the last week - Discharge to home. Plan follow up with Dr. Thomas in 1-2wks - Patient planning transfer of care to [facility] OFFICE: [phone] ULTING SERVICES MANAGER Sandhya Rodriguez MD - 10/09/2016 9:41 AM CST OB ANTEPARTUM PROGRESS NOTE IUP at 31+0 weeks SUBJECTIVE: Patient feels well. No issues. No further bleeding. OBJECTIVE: Visit Vitals ??? BP 123/65 ??? Pulse 72 ??? Temp 98.2 ??F (36.8 ??C) (Oral) ??? Resp 14 ??? Ht 5' 7 (1.702 m) ??? Wt 163 lb (73.9 kg) ??? LMP 02/29/2016 (Exact Date) ??? SpO2 99% ??? BMI 25.53 kg/m2 Abd: gravid NST: Pending this morning OB LABS: Labs Result Component Result Previous Result ABO/Rh External Result A Positive (05/19/2016) No Results ABORh A POS (09/27/2016) No Results Hemoglobin External Result 11.8 (05/19/2016) No Results MEDICATIONS: Current Facility-Administered Medications: ??? docusate sodium capsule 100 mg (COLACE), 100 mg, Oral, BID, Rosa Sharpe PA-C, 100 mg at 10/09/16 0102 ??? ferrous sulfate tablet 325 mg, 325 mg, Oral, Daily with brkfst, Rosa Sharpe PA-C, 325 mg at 10/08/16 0755 ??? hydrOXYzine capsule 200 mg (VISTARIL), 200 mg, Oral, Bedtime PRN, Holland Thomas MD, 200 mg at112/09/15 0130 ??? hydrOXYzine capsule 50 mg (VISTARIL), 50 mg, Oral, Q6H PRN, Carlie Manzo MD ??? lactated ringers, 0-500 mL/hr, Intravenous, Continuous, Kerri Casey, AMMUNITION ASSEMBLY I LABORER,CNM, 0 mL/hr at 09/25/16 1100 ??? naloxone injection 0.04-0.1 mg (NARCAN), 0.04-0.1 mg, Intravenous, PRN OR naloxone injection0.1-0.4 mg (NARCAN), 0.1-0.4 mg, Intramuscular, PRN, Holland Thomas MD ??? oxyCODONE-acetaminophen 5-325 mg 1-2 tablet (PERCOCET), 1-2 tablet, Oral, Q4H PRN, Holland Thomas MD, 2 tablet at 10/08/16 1415 ??? polyethylene glycol packet 17 g (MIRALAX), 17 g, Oral, Daily PRN, Alberto Guevara MD ??? vitamin iron-folic acid 27mg-0.8mg tablet 1 tablet ( S), 1 tablet, Oral, DAILY,Rosa Sharpe PA-C, 1 tablet at 10/09/16 0103 ASSESSMENT: 26 y.o. at 31w0d Bleeding of unknown etiology PLAN: CPM No new changes Sandhya Rodriguez MD ULTING SERVICES MANAGER Most, Rosa Baker PA-C - 10/08/2016 8:44 AM CST OB ANTEPARTUM PROGRESS NOTE IUP at 30w6d, admitted for vaginal bleeding SUBJECTIVE: Patient feels about the same. She has no new complaints. Patient states the baby is active, and is completing kick counts. States that she is experiencing no contractions. Patient denies headache, change in vision or upper abdominal pain. Denies bleeding. denies leaking of fluids. denies change in discharge. States no further tinged spot bleeding since yesterday OBJECTIVE: Visit Vitals ??? BP 101/61 ??? Pulse 74 ??? Temp 98 ??F (36.7 ??C) (Oral) ??? Resp 16 ??? Ht 5' 7 (1.702 m) ??? Wt 163 lb (73.9 kg) ??? LMP 02/29/2016 (Exact Date) ??? SpO2 99% ??? BMI 25.53 kg/m2 Abd: gravid NST: reactive TOCO: irritable, no OB LABS: Labs Result Component Result Previous Result ABO/Rh External Result A Positive (05/19/2016) No Results ABORh A POS (09/27/2016) No Results Hemoglobin External Result 11.8 (05/19/2016) No Results IMAGING: todays pending ASSESSMENT: 26 y.o. at 30w6d vaginal bleeding in 3rd trimester - resolved + antibody - warm auto antibody, Connie negative, E negative anemia of Hip pain PLAN: ANTEPARTUM - 30w6d - admit to hospital - continue bed rest with bathroom priledges - may have wheel chair rides/ may shower RUQ pain - describes as a pulling sensation - resolved currently - US normal - labs within in normal limits Right hip pain - improved - PT consult - percocet PRN - did discuss ramifications of being on narcotics in + antibody - warm auto antibody ,Connie negative, E negative, noted on - discussed with pathology Vaginal bleeding - ? Small abruption - denies contractions - slightly echogenic layering material dependently along the internal cervical os as described abovewhich is new. This may reflect a tiny amount of hemorrhage - not noted on 10/07 ultrasound - will plan to continue hospitalization Discussed with MARLA Bruce [facility] OFFICE: [phone] ULTING SERVICES MANAGER Rosa Canseco PA-C - 10/07/2016 8:28 AM CST OB ANTEPARTUM PROGRESS NOTE IUP at 30w5d, admitted for vaginal bleeding SUBJECTIVE: Patient feels about the same. She has no new complaints. Patient states the baby is active, and is completing kick counts. States that she is experiencing no contractions. Patient denies headache, change in vision or upper abdominal pain. Denies bleeding. denies leaking of fluids. denies change in discharge. States no further tinged spot bleeding since yesterday OBJECTIVE: Visit Vitals ??? BP 107/59 ??? Pulse 76 ??? Temp 98 ??F (36.7 ??C) (Oral) ??? Resp 18 ??? Ht 5' 7 (1.702 m) ??? Wt 163 lb (73.9 kg) ??? LMP 02/29/2016 (Exact Date) ??? SpO2 99% ??? BMI 25.53 kg/m2 Abd: gravid NST: reactive TOCO: irritable, no OB LABS: Labs Result Component Result Previous Result ABO/Rh External Result A Positive (05/19/2016) No Results ABORh A POS (09/27/2016) No Results Hemoglobin External Result 11.8 (05/19/2016) No Results IMAGING: todays pending ASSESSMENT: 26 y.o. at 30w5d vaginal bleeding in 3rd trimester - resolved + antibody - warm auto antibody, Connie negative, E negative anemia of Hip pain PLAN: ANTEPARTUM - 30w5d - admit to hospital - continue bed rest with bathroom priledges - may have wheel chair rides/ may shower RUQ pain - describes as a pulling sensation - resolved currently - US normal - labs within in normal limits Right hip pain - improved - PT consult - percocet PRN - did discuss ramifications of being on narcotics in + antibody - warm auto antibody ,[place] negative, E negative, noted on - discussed with pathology Vaginal bleeding - ? Small abruption - denies contractions - slightly echogenic layering material dependently along the internal cervical os as described abovewhich is new. This may reflect a tiny amount of hemorrhage - not noted on 10/04 ultrasound - will plan to continue hospitalization D[facility]ed with Dr. Alberto Sharpe PA-C [facility] OFFICE: [phone] ULTING SERVICES MANAGER Historical Provider - 10/06/2016 3:20 PM CST Report received, cares assumed. Patient in bed, denies pain or discomfort at this time Rosa Canseco PA-C - 10/06/2016 11:56 AM CST OB ANTEPARTUM PROGRESS NOTE IUP at 30w4d, admitted for vaginal bleeding SUBJECTIVE: Patient feels about the same. She has no new complaints. Patient states the baby is active, and is completing kick counts. States that she is experiencing no contractions. Patient denies headache, change in vision or upper abdominal pain. Denies bleeding. denies leaking of fluids. denies change in discharge. OBJECTIVE: Visit Vitals ??? BP 110/53 ??? Pulse 71 ??? Temp 98.2 ??F (36.8 ??C) (Oral) ??? Resp 18 ??? Ht 5' 7 (1.702 m) ??? Wt 163 lb (73.9 kg) ??? LMP 02/29/2016 (Exact Date) ??? SpO2 99% ??? BMI 25.53 kg/m2 Abd: gravid NST: reactive TOCO: irritable, no OB LABS: Labs Result Component Result Previous Result ABO/Rh External Result A Positive (05/19/2016) No Results ABORh A POS (09/27/2016) No Results Hemoglobin External Result 11.8 (05/19/2016) No Results ASSESSMENT: 26 y.o. at 30w4d vaginal bleeding in 3rd trimester - resolved + antibody - warm auto antibody, Connie negative, E negative anemia of Hip pain PLAN: ANTEPARTUM - 30w4d - admit to hospital - continue bed rest with bathroom priledges - may have wheel chair rides/ may shower RUQ pain - describes as a pulling sensation - resolved currently - US normal - labs within in normal limits Right hip pain - improved - PT consult - percocet PRN - did discuss ramifications of being on narcotics in + antibody - warm auto antibody ,[place] negative, E negative, noted on - discussed with pathology Vaginal bleeding - ? Small abruption - denies contractions - slightly echogenic layering material dependently along the internal cervical os as described abovewhich is new. This may reflect a tiny amount of hemorrhage - not noted on 10/04 ultrasound - will plan to continue hospitalization Discussed with Dr. Alberto Sharpe PA-C [facility] OFFICE: [phone] Ivania Santo - 10/06/2016 8:00 AM CST Pt alert and oriented. Talkative and cheerful. Discuss plan for increased small periods of ambulation today. Discusses her desire to be home soon with her young daughter and step daughters. Abdominal binder and belly band offered to pt for additional tummy support. Ivania Richards Mariajose Gomez RN - 10/05/2016 3:14 PM CST Patient ambulated in room for 10 mins. Noticed some lower left quadrant cramping Will try bath to see if helps. ULTING SERVICES MANAGER Rosa Canseco PA-C - 10/05/2016 1:58 PM CST OB ANTEPARTUM PROGRESS NOTE IUP at 30w3d, admitted for vaginal bleeding SUBJECTIVE: Patient feels about the same. She has no new complaints. Patient states the baby is active, and is completing kick counts. States that she is experiencing no contractions. Patient denies headache, change in vision or upper abdominal pain. Denies bleeding. denies leaking of fluids. denies change in discharge. Increased activity level yesterday - patient is excited. OBJECTIVE: Visit Vitals ??? BP 122/59 ??? Pulse 72 ??? Temp 98.5 ??F (36.9 ??C) (Oral) ??? Resp 18 ??? Ht 5' 7 (1.702 m) ??? Wt 163 lb (73.9 kg) ??? LMP 02/29/2016 (Exact Date) ??? SpO2 99% ??? BMI 25.53 kg/m2 Abd: gravid NST: reactive TOCO: irritable, no OB LABS: Labs Result Component Result Previous Result ABO/Rh External Result A Positive (05/19/2016) No Results ABORh A POS (09/27/2016) No Results Hemoglobin External Result 11.8 (05/19/2016) No Results ASSESSMENT: 26 y.o. at 30w3d vaginal bleeding in 3rd trimester + antibody - warm auto antibody, Connie negative, E negative anemia of Hip pain PLAN: ANTEPARTUM - 30w3d - admit to hospital - continue bed rest with bathroom priledges - may have wheel chair rides/ may shower RUQ pain - describes as a pulling sensation - resolved currently - US normal - labs within in normal limits Right hip pain - improved - PT consult - percocet PRN - did discuss ramifications of being on narcotics in + antibody - warm auto antibody ,Connie negative, E negative, noted on - discussed with pathology Vaginal bleeding - ? Small abruption - denies contractions - slightly echogenic layering material dependently along the internal cervical os as described abovewhich is new. This may reflect a tiny amount of hemorrhage - not noted on 10/04 ultrasound - will plan to continue hospitalization Discussed with MARLA Suarez [facility] OFFICE: [phone] ULTING SERVICES MANAGER Vi Stephen - 10/04/2016 9:19 PM CST No bleeding; fetus active. Wearing SCDs. In good spirits. Reviewed plan of care ULTING SERVICES MANAGER Rosa Canseco PA-C - 10/04/2016 3:27 PM CST OB ANTEPARTUM PROGRESS NOTE IUP at 30w2d, admitted for vaginal bleeding SUBJECTIVE: Patient feels about the same. She has no new complaints. Patient states the baby is active, and is completing kick counts. States that she is experiencing no contractions. Patient denies headache, change in vision or upper abdominal pain. Denies bleeding. denies leaking of fluids. denies change in discharge. OBJECTIVE: Visit Vitals ??? BP 116/60 ??? Pulse 73 ??? Temp 97.9 ??F (36.6 ??C) (Oral) ??? Resp 14 ??? Ht 5' 7 (1.702 m) ??? Wt 163 lb (73.9 kg) ??? LMP 02/29/2016 (Exact Date) ??? SpO2 100% ??? BMI 25.53 kg/m2 Abd: gravid NST: reactive TOCO: irritable, no OB LABS: Labs Result Component Result Previous Result ABO/Rh External Result A Positive (05/19/2016) No Results ABORh A POS (09/27/2016) No Results Hemoglobin External Result 11.8 (05/19/2016) No Results ASSESSMENT: 26 y.o. at 30w2d vaginal bleeding in 3rd trimester + antibody - warm auto antibody, Connie negative, E negative anemia of Hip pain PLAN: ANTEPARTUM - 30w2d - admit to hospital - continue bed rest with bathroom priledges - may have wheel chair rides/ may shower RUQ pain - describes as a pulling sensation - resolved currently - US normal - labs within in normal limits Right hip pain - PT consult - percocet PRN - did discuss ramifications of being on narcotics in + antibody - warm auto antibody ,Connie negative, E negative, noted on - discussed with pathology - will await results Vaginal bleeding - ? Small abruption - minimal - denies contractions - slightly echogenic layering material dependently along the internal cervical os as described abovewhich is new. This may reflect a tiny amount of hemorrhage - us on was clear - will plan to continue hospitalization Discussed with Dr. Alberto Sharpe PA-C [facility] OFFICE: [phone] ULTING SERVICES MANAGER Amirah Vallejo - 10/04/2016 2:03 PM CST Clinical Nutrition Therapy Assessment Note Reason for Assessment: Keyla Porter is a 26 y.o. female assessed by the registered Dietitian for length of stay screen. Pt admitted for vaginal bleeding with diagnosed partial abruption. She is 30 weeks . Nutrition History: Information obtained from patient. Patients diet prior to admission has been regular. Recent food/fluid intake has been good. Patient has been consuming the following supplements none. 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 Labs: Labs reviewed Assessed Nutritional Needs: Assessment weight is 61 Kg with a weight source of [place] (prepregnancy) Estimated Energy Needs: 6918-2754 kcals daily per 25-30 kcal/kg (Plus 300 Calories/day for ) Estimated Protein Needs: 73-92 g daily, 1.2-1.5 g/kg. Estimated Fluid Needs: >2135 mls daily, >35 mls/kg Malnutrition Assessment: Not noted Nutrition Risk Level: no risk Nutrition dx: None at this time Goal: Continued gradual weight gain Meet nutritional needs via po diet Consume 75% or more of meals tid Intervention: Provided cafeteria menu for more food options since pt has been here over a week Monitoring: Po intake, weight, labs, plan of care See Care Plan for Problems, Goals, and Interventions. Meryl Hughes - 10/03/2016 10:55 AM CST Care assumed from CHADWICK CALHOUN. Introduced to [place] and informed her of change in staffing. Finished eating breakfast. States she was a bit nauseous I think from taking the Percocet before having ate breakfast this morning. No emesis. Denies any pain, LOF, vaginal bleeding, uterine activity at this time. It's much better. Reports feeling tired and wanting to take a nap. Decreased environmental stimuli. Room dark. Will call out with any needs or concerns. Carlie Bain MD - 10/03/2016 7:54 AM CST Carlie Manzo MD Physician Signed Obstetrics Progress Notes OB ANTEPARTUM PROGRESS NOTE ?? IUP at 30w1 d, admitted for vaginal bleeding with diagnosed partial abruption. ?? SUBJECTIVE: Patient feels pain in LLQ- has had crampy pain there intermittently but now more sharp and searing in last hour. No vb, good fm, hungry. Last BM 5 days ago- states normal for her, last pain meds last night.?? OBJECTIVE: Visit Vitals? BP?? 118/55? Pulse?? 75? Temp?? 97.4 ??F (36.3 ??C) (Oral)? Resp?? 16? Ht?? 5' 7 (1.702 m)? Wt?? 163 lb (73.9 kg)? LMP?? 02/29/2016 (Exact Date)? SpO2?? 99%? BMI?? 25.53 kg/m2? Abd: gravid. Tender in LLQ, voluntary guards but no rebound, Previous l/s no obvious hernia NST: pending TOCO: no contractions ?? OB LABS: Labs Result Component?? Result?? Previous Result?? ABO/Rh External Result?? A Positive (05/19/2016)?? No Results?? ABORh?? A POS (09/27/2016)?? No Results?? Hemoglobin External Result?? 11.8 (05/19/2016)?? No Results? MEDICATIONS: ?? Current Facility-Administered Medications: ? docusate sodium capsule 100 mg (COLACE), 100 mg, Oral, BID, Rosa Sharpe PA-C, 100 mg at 10/02/16 0838 ??? ferrous sulfate tablet 325 mg, 325 mg, Oral, Daily with brkfst, Rosa Sharpe PA-C, 325 mg at 10/02/16 0838 ??? hydrOXYzine capsule 200 mg (VISTARIL), 200 mg, Oral, Bedtime PRN, Holland Thomas MD, 100 mg at112/01/15 2136 ??? lactated ringers, 0-500 mL/hr, Intravenous, Continuous, Kerri Casey APRN,CNM, 0 mL/hr at 09/25/16 1100 ??? naloxone injection 0.04-0.1 mg (NARCAN), 0.04-0.1 mg, Intravenous, PRN OR naloxone injection0.1-0.4 mg (NARCAN), 0.1-0.4 mg, Intramuscular, PRN, Holland Thomas MD ??? oxyCODONE-acetaminophen 5-325 mg 1-2 tablet (PERCOCET), 1-2 tablet, Oral, Q4H PRN, Holland Thomas MD, 1 tablet at 10/02/16 1357 ??? vitamin iron-folic acid 27mg-0.8mg tablet 1 tablet ( S), 1 tablet, Oral, DAILY,Rosa Sharpe PA-C, 1 tablet at 10/01/16 1850 ?? ASSESSMENT: 26 y.o. at 30 weeks 1d stable partial abruption- I do not think this pain is related, suspect more musculoskelatal/constipation ?? PLAN: Continue current care plan. Repeat pain meds. Await reactive NST then ok for tub. Carlie Manzo MD [employer] DIGESTER OPERATOR HELPER [phone] ? ULTING SERVICES MANAGER Eliza Suárez - 10/03/2016 7:53 AM CST Keyla called out this morning around 0710 c/o LLQ abdominal pain rated a 9- 10/10. She says she woke up feeling a stabbing feeling that has gotten sharper and not gone away. EFM applied. VSS. Physicalassessment WDL. Patient denies any BM since last Tuesday but reports that is normal for her. Dr. Manzo on unit and notified. Dr. Manzo to bedside for assessment. Plan to try pain meds, see MAR,a little food, and continue to monitor pain. ULTING SERVICES MANAGER Esthela Vee - 10/02/2016 4:29 PM CST OB ANTEPARTUM PROGRESS NOTE IUP at 30w0d, admitted for vaginal bleeding with diagnosed partial abruption. SUBJECTIVE: Patient feels well. She has no new complaints. Patient states the baby is active. States that she isexperiencing no contractions. Patient denies headache, change in vision or upper abdominal pain. Shedenies vaginal bleeding. Denies leaking of fluids. Denies change in discharge. OBJECTIVE: Visit Vitals ??? BP 118/55 ??? Pulse 75 ??? Temp 97.4 ??F (36.3 ??C) (Oral) ??? Resp 16 ??? Ht 5' 7 (1.702 m) ??? Wt 163 lb (73.9 kg) ??? LMP 02/29/2016 (Exact Date) ??? SpO2 99% ??? BMI 25.53 kg/m2 Abd: gravid NST: reactive TOCO: no contractions OB LABS: Labs Result Component Result Previous Result ABO/Rh External Result A Positive (05/19/2016) No Results ABORh A POS (09/27/2016) No Results Hemoglobin External Result 11.8 (05/19/2016) No Results MEDICATIONS: Current Facility-Administered Medications: ??? docusate sodium capsule 100 mg (COLACE), 100 mg, Oral, BID, Rosa Sharpe PA-C, 100 mg at 10/02/16 0838 ??? ferrous sulfate tablet 325 mg, 325 mg, Oral, Daily with brkfst, Rosa Sharpe PA-C, 325 mg at 10/02/16 0838 ??? hydrOXYzine capsule 200 mg (VISTARIL), 200 mg, Oral, Bedtime PRN, Holland Thomas MD, 100 mg at112/01/15 2136 ??? lactated ringers, 0-500 mL/hr, Intravenous, Continuous, Kerri Casey APRN,CNM, 0 mL/hr at 09/25/16 1100 ??? naloxone injection 0.04-0.1 mg (NARCAN), 0.04-0.1 mg, Intravenous, PRN OR naloxone injection0.1-0.4 mg (NARCAN), 0.1-0.4 mg, Intramuscular, PRN, Holland Thomas MD ??? oxyCODONE-acetaminophen 5-325 mg 1-2 tablet (PERCOCET), 1-2 tablet, Oral, Q4H PRN, Holland Thomas MD, 1 tablet at 10/02/16 1357 ??? vitamin iron-folic acid 27mg-0.8mg tablet 1 tablet ( S), 1 tablet, Oral, DAILY,Rosa Sharpe PA-C, 1 tablet at 10/01/16 1850 ASSESSMENT: 26 y.o. at 30w0d stable partial abruption. PLAN: Continue current care plan. Will allow to sit in chair or take wheel chair ride for short time periods. Esthela Vee M.D. ULTING SERVICES MANAGER Dunia Alfaro - 10/02/2016 8:45 AM CST RN at the bedside at this time. Patient noted to be feeling well. Patient declines having any new bleeding. Patient declines feeling any pain or contractions and declines any LOF. Patient reports positive FM. Patient would like for her NST and vitals to be done after breakfast. Patient declines further needs at this time. ULTING SERVICES MANAGER Rosa Canseco PA-C - 10/01/2016 4:02 PM CST OB ANTEPARTUM PROGRESS NOTE IUP at 29w6d, admitted for vaginal bleeding SUBJECTIVE: Patient feels about the same. She has no new complaints. Patient states the baby is active, and is completing kick counts. States that she is experiencing no contractions. Patient denies headache, change in vision or upper abdominal pain. Denies bleeding. denies leaking of fluids. denies change in discharge. OBJECTIVE: Visit Vitals ??? BP 101/61 ??? Pulse 64 ??? Temp 98.2 ??F (36.8 ??C) (Oral) ??? Resp 16 ??? Ht 5' 7 (1.702 m) ??? Wt 163 lb (73.9 kg) ??? LMP 02/29/2016 (Exact Date) ??? SpO2 100% ??? BMI 25.53 kg/m2 Abd: gravid NST: reactive TOCO: irritable, no OB LABS: Labs Result Component Result Previous Result ABO/Rh External Result A Positive (05/19/2016) No Results ABORh A POS (09/27/2016) No Results Hemoglobin External Result 11.8 (05/19/2016) No Results ASSESSMENT: 26 y.o. at 29w6d vaginal bleeding in 3rd trimester + antibody - warm auto antibody, Connie negative, E negative anemia of Hip pain PLAN: ANTEPARTUM - 29w6d - admit to hospital - continue bed rest with bathroom priledges - may have wheel chair rides/ may shower RUQ pain - describes as a pulling sensation - resolved currently - US normal - labs within in normal limits Right hip pain - PT consult - percocet PRN - did discuss ramifications of being on narcotics in + antibody - warm auto antibody ,[place] negative, E negative, noted on - discussed with pathology - will await results Vaginal bleeding - ? Small abruption - minimal - denies contractions - slightly echogenic layering material dependently along the internal cervical os as described abovewhich is new. This may reflect a tiny amount of hemorrhage - repeating US today - clear of debris - will plan to continue hospitalization Discussed with MD Rosa Sinha PA-C [facility] OFFICE: [phone] ULTING SERVICES MANAGER Cathy Agustin RN - 10/01/2016 8:33 AM CST RN spoke with Dr Thomas informing him that the type and screen that was originally obtained expiredat midnight last night. Will need a new order to run a new one. Per , will not reorder at this time. Eliza Griffith - 09/30/2016 4:18 PM CST 1240 pt called blurb writer to room , states I feel like I cant breath vital signs stable 02 stats 99%. Salvador spencer will be here to see pt. 1315 Pt states she is feeling better, seen be Dr Guevara. Plan is for pt to tub and vistaril. Pt agreesthat she feels better. Alberto Simms MD - 09/30/2016 1:28 PM CST Slightly SOB. No CP. Symptoms are not exactly like her anxiety symptoms in the past. No abd pain or bleeidng Afeb, Pulse 80, resp 12, O2 sat 99% on RA Lungs CTAB CV RRR without murmur Abd NT NST-reactive and no UCs Imp: Likely anxiety related. Plan: Shower, vistaril and observation. If it persists or worsens, hospitalist consult ULTING SERVICES MANAGER Rosa Canseco PA-C - 09/30/2016 8:58 AM CST OB ANTEPARTUM PROGRESS NOTE IUP at 29w5d, admitted for vaginal bleeding SUBJECTIVE: Patient feels about the same. She has no new complaints. Patient states the baby is active, and is completing kick counts. States that she is experiencing no contractions. Patient denies headache, change in vision or upper abdominal pain. She admits small amount of vaginal bleeding. denies leaking of fluids. denies change in discharge. OBJECTIVE: Visit Vitals ??? BP 106/64 ??? Pulse 60 ??? Temp 98.1 ??F (36.7 ??C) ??? Resp 16 ??? Ht 5' 7 (1.702 m) ??? Wt 163 lb (73.9 kg) ??? LMP 02/29/2016 (Exact Date) ??? SpO2 100% ??? BMI 25.53 kg/m2 Abd: gravid NST: reactive TOCO: irritable, no OB LABS: Labs Result Component Result Previous Result ABO/Rh External Result A Positive (05/19/2016) No Results ABORh A POS (09/27/2016) No Results Hemoglobin External Result 11.8 (05/19/2016) No Results ASSESSMENT: 26 y.o. at 29w5d vaginal bleeding in 3rd trimester + antibody - warm auto antibody, [place] negative, E negative anemia of Hip pain PLAN: ANTEPARTUM - 29w5d - admit to hospital - continue bed rest with bathroom priledges - may have wheel chair rides/ may shower RUQ pain - describes as a pulling sensation - resolved currently - US normal - labs within in normal limits Right hip pain - PT consult - percocet PRN - did discuss ramifications of being on narcotics in + antibody - warm auto antibody ,Connie negative, E negative, noted on - discussed with pathology - will await results Vaginal bleeding - minimal - denies contractions - slightly echogenic layering material dependently along the internal cervical os as described abovewhich is new. This may reflect a tiny amount of hemorrhage - repeating US today - will plan to continue hospitalization Discussed with MD Rosa Sinha PA-C [facility] OFFICE: [phone] ULTING SERVICES MANAGER Historical Provider - 09/29/2016 11:52 PM CST Keyla is describing lower left abdominal pain. Continuous, somewhat tender to touch, worse with baby moving, aching with some referral up her left side. Discussed with William, will keep EFM running for a bit longer and watch. Rosa Canseco PA-C - 09/29/2016 10:43 AM CST OB ANTEPARTUM PROGRESS NOTE IUP at 29w4d, admitted for vaginal bleeding SUBJECTIVE: Patient feels about the same. She has no new complaints. Patient states the baby is active, and is completing kick counts. States that she is experiencing no contractions. Patient denies headache, change in vision or upper abdominal pain. She admits small amount of vaginal bleeding. denies leaking of fluids. denies change in discharge. OBJECTIVE: Visit Vitals ??? BP 102/58 ??? Pulse 71 ??? Temp 98.1 ??F (36.7 ??C) ??? Resp 16 ??? Ht 5' 7 (1.702 m) ??? Wt 163 lb (73.9 kg) ??? LMP 02/29/2016 (Exact Date) ??? SpO2 100% ??? BMI 25.53 kg/m2 Abd: gravid NST: reactive TOCO: irritable, no LABS: Pending OB LABS: Labs Result Component Result Previous Result ABO/Rh External Result A Positive (05/19/2016) No Results ABORh A POS (09/27/2016) No Results Hemoglobin External Result 11.8 (05/19/2016) No Results ASSESSMENT: 26 y.o. at 29w4d vaginal bleeding in 3rd trimester + antibody - warm auto antibody, [place] negative, E negative anemia of Hip pain PLAN: ANTEPARTUM - 29w4d - admit to hospital - continue bed rest with bathroom priledges - may have wheel chair rides/ may shower RUQ pain - describes as a pulling sensation - resolved currently - US normal - labs within in normal limits Right hip pain - PT consult - percocet PRN - did discuss ramifications of being on narcotics in + antibody - warm auto antibody ,[place] negative, E negative, noted on - discussed with pathology - will await results Vaginal bleeding - some this am - minimal - denies contractions - slightly echogenic layering material dependently along the internal cervical os as described abovewhich is new. This may reflect a tiny amount of hemorrhage - will plan to continue hospitalization Discussed with MD Rosa Sinha PA-C [facility] OFFICE: [phone] ULTING SERVICES MANAGER Historical Provider - 09/28/2016 11:39 PM CST [place] will call with needs overnight. Accepted vistaril, will call for percocet if needed. Rosa Canseco PA-C - 09/28/2016 3:27 PM CST OB ANTEPARTUM PROGRESS NOTE IUP at 29w3d, admitted for vaginal bleeding SUBJECTIVE: Patient feels about the same. She has no new complaints. Patient states the baby is active, and is completing kick counts. States that she is experiencing no contractions. Patient denies headache, change in vision or upper abdominal pain. She admits small amount of vaginal bleeding. denies leaking of fluids. denies change in discharge. OBJECTIVE: Visit Vitals ??? BP 110/60 ??? Pulse (!) 57 ??? Temp 98 ??F (36.7 ??C) (Oral) ??? Resp 16 ??? Ht 5' 7 (1.702 m) ??? Wt 163 lb (73.9 kg) ??? LMP 02/29/2016 (Exact Date) ??? SpO2 99% ??? BMI 25.53 kg/m2 Abd: gravid NST: reactive TOCO: irritable, no LABS: Pending OB LABS: Labs Result Component Result Previous Result ABO/Rh External Result A Positive (05/19/2016) No Results ABORh A POS (09/27/2016) No Results Hemoglobin External Result 11.8 (05/19/2016) No Results ASSESSMENT: 26 y.o. at 29w2d vaginal bleeding in 3rd trimester + antibody - warm auto antibody, [place] negative, E negative anemia of Hip pain PLAN: ANTEPARTUM - 29w3d - admit to hospital - continue bed rest with bathroom priledges - may have wheel chair rides/ may shower RUQ pain - describes as a pulling sensation - resolved currently - US normal - labs within in normal limits Right hip pain - PT consult - percocet PRN - did discuss ramifications of being on narcotics in + antibody - warm auto antibody ,[place] negative, E negative, noted on - discussed with pathology - will await results Vaginal bleeding - some this am - minimal - denies contractions - slightly echogenic layering material dependently along the internal cervical os as described abovewhich is new. This may reflect a tiny amount of hemorrhage - will plan to continue hospitalization Discussed with MD Rosa Sinha PA-C [facility] OFFICE: [phone] ULTING SERVICES MANAGER Eliza Jimenez - 09/28/2016 8:51 AM CST Pt report received, pt awake. States she felt a little cramping during the night, but nothing right now. Will continue to monitor. 1055 integrative therapy here to see pt. 1220 pt up to shower pt States she has a headache will continue to monitor. 1320 pt done in shower, PT here to see pt. ULTING SERVICES MANAGER Holland Thomas MD - 09/27/2016 9:45 PM CST OB NOTE Reviewed US findings that are consistent with small blood collection at area of lower uterine segment Blood bank has also indicated the presence of a positive antibody screen, work- up in progress Plan is for prolonged hospitalization, monitoring, biweekly US Pt in agreement Holland Thomas MD ULTING SERVICES MANAGER Danielle Padilla - 09/27/2016 7:05 PM CST U/S Results have been reviewed by Rosa WORTHY and communicated to Dr. Thomas. MLong at bedside,reviewed noted variables and EFM strip. Plan of care discussed with pt. Lab work ordered - determined that A Pos + antibodies - sample sent to [facility] - type and cross per Maryanne in Blood Bank. Pt remains on EFM - occ irritabilty seen, Occ variable seen. Pelvic pain Sciatica pain well managed with prn percocet. No jasmine bleeding/clot seen throughout this shift.. Continues to have small brownish discharge on peripad. ULTING SERVICES MANAGER Danielle Padilla - 09/27/2016 3:48 PM CST ZAYNAB Sharpe requested order of type and cross 2 units r/t pt + antibody. This blurb writer spoke with Blood Bank (Maryanne). Pt has been typed and screen and due to + antibody has been sent to [facility] to identify anitbody. Per policy when antibody is identified [facility] will send 2 units to this hospital. Rosa Perez PA-C - 09/27/2016 1:46 PM CST OB ANTEPARTUM PROGRESS NOTE IUP at 29w2d, admitted for vaginal bleeding SUBJECTIVE: Patient feels about the same. She complains of vaginal bleeding and ruq pain . Patient states the baby is active, and is completing kick counts. States that she is experiencing no contractions. Patient denies headache, change in vision or upper abdominal pain. She admits to vaginal bleeding, some this am small amount, none since. denies leaking of fluids. denies change in discharge. OBJECTIVE: Visit Vitals ??? BP 115/64 ??? Pulse 75 ??? Temp 98.1 ??F (36.7 ??C) ??? Resp 18 ??? Ht 5' 7 (1.702 m) ??? Wt 163 lb (73.9 kg) ??? LMP 02/29/2016 (Exact Date) ??? SpO2 99% ??? BMI 25.53 kg/m2 Abd: gravid NST: reactive TOCO: irritable, no LABS: Pending OB LABS: Labs Result Component Result Previous Result ABO/Rh External Result A Positive (05/19/2016) No Results ABORh A POS (09/27/2016) No Results Hemoglobin External Result 11.8 (05/19/2016) No Results IMAGING: Us Ob Limited Result Date: 09/27/2016 ULTRASOUND LIMITED OBSTETRICAL 09/27/2016 12:05 PM INDICATION: Continued vaginal bleeding at 29 weeks. TECHNIQUE: Transabdominal COMPARISON: 09/25/2016 and older studies. FINDINGS: POSITION: Cephalic PLACENTA LOCATION: Anterior without evidence of a subplacental hematoma. AMNIOTIC FLUID: 19.7. Cervix is closed and of normal length. Dependently, adjacent to the internal cervical os, patient has developed a thin echogenic, layer within the amniotic fluid. This measures 1.8 cm in length and 3 mm inthickness was not seen on the prior study. The superior wall of the bladder is again noted to have aslightly lobulated appearance. This is similar to the most recent study but is not appreciated on the prior exams. HEART RATE: 157 bpm CONCLUSION: 1. Single, living intrauterine gestation in cephalic presentation. 2. Placenta is anterior without evidence of previa or subplacental hematoma. There is minimal, slightly echogenic layeringmaterial dependently along the internal cervical os as described above which is new. This may reflect a tiny amount of hemorrhage. 3. As seen before, the superior wall of the bladder has a slightly lobulated appearance, not appreciated on the earlier OB ultrasounds. It's uncertain if these may reflectsome pelvic varices in this region. Follow-up of the maternal bladder could be done postnatally. NOTE: ABNORMAL REPORT THE DICTATION ABOVE DESCRIBES AN ABNORMALITY FOR WHICH FOLLOW-UP IS NEEDED. Us Abdomen Limited Result Date: 09/27/2016 US ABDOMEN LIMITED 09/27/2016 12:05 PM INDICATION: RUQ pain/R flank pain COMPARISON: None. FINDINGS: GALLBLADDER: Normal, without cholelithiasis. BILE DUCTS: No bile duct dilation. The common hepatic duct measures 2 mm. LIVER: Normal where seen. RIGHT KIDNEY: No hydronephrosis. PANCREAS: Not imaged in d etail on this limited study. No incidental abnormalities. No ascites in the right upper quadrant. CONCLUSION: 1. Normal RUQ ultrasound. ASSESSMENT: 26 y.o. at 29w2d vaginal bleeding in 3rd trimester + antibody - warm auto antibody, [place] negative, E negative anemia of Hip pain PLAN: ANTEPARTUM - admit to hospital - continue bed rest with bathroom priledges - may have wheel chair rides/ may shower RUQ pain - describes as a pulling sensation - resolved currently - US normal - labs within in normal limits Right hip pain - PT consult - percocet PRN - did discuss ramifications of being on narcotics in + antibody - warm auto antibody ,[place] negative, E negative, noted on - discussed with pathology - will await todays results Vaginal bleeding - some this am - minimal - denies contractions - slightly echogenic layering material dependently along the internal cervical os as described abovewhich is new. This may reflect a tiny amount of hemorrhage Discussed with MD Rosa Sinha PA-C [facility] OFFICE: [phone] ULTING SERVICES MANAGER Historical Provider - 09/27/2016 12:57 PM CST Met with pt regarding help with MA penny process. Pt has been working on an MA penny since last Dec. Shehas been having a lot of problems with the process. Pt agreeable to working together to get her MA application processed and coverage in place. Pt signed a consent for BHARAT, faxed to [facility] and placed a call asking for confirmation of MA penny pending and the status. Will follow and assist pt withthe MNsure/MA penny process. Anyi Bah MD - 09/27/2016 6:31 AM CST S: Notified by RN that pt c/o more RUQ pain around 5 am. She describes it as 'pulling', maybe pressure. She had some bleeding at about 4 and mucus at about 5. Bleeding was light, and then color became brown. Pain makes her feel dizzy, but not nauseated. Enough to wipe away, but not a flow. No contractions on the monitor, and FHR is Cat 1. She took a percocet and now the pain is getting better. Was a '4''. Her hip pain continues. O: Exam is nonfocal - she relays pain with palpation of the R abdomen. No CVAT, no rebound, etc A: IUP 29.2 weeks, Vaginal bleeding - does not appear to be in PTL, and has a RUQ/R flank pain. P: Formal OB US, and RUQ US this am. Anyi Bah MD ULTING SERVICES MANAGER Gabby Soto - 09/27/2016 6:20 AM CST 0520; Pt c/o right ribcage pain and hip pain. Rates the pain 02/28. Percocet 1 tablet given. Not actively bleeding but notices blood on the toilet paper when she wipes. 0610; Dr Bah notified Rosalee Ambrocio - 09/26/2016 9:59 AM CST 0900 pt eating breakfast, denies having any vaginal bleeding since 05 am ( up to shower and had a little bit of bleeding). Pt c/o still has some hip pain, will ask for percocet after breakfast. Care plans to continue monitor bleeding and pain control. 1315 pt c/o hip pain is gone, denies any vaginal bleeding. Anyi Bae MD - 09/26/2016 8:13 AM CST Progress Note - Antepartum Subjective: Doing okay. No bleeding since 0500. (+) FM. Has hip pain whenever she lays on either one. Has been going on for awhile. She took 1 percocet and would like another. Has been using tylenol and taking showers when it would happen at home. Objective: Visit Vitals ??? BP 110/59 ??? Pulse 76 ??? Temp 97.7 ??F (36.5 ??C) (Oral) ??? Resp 16 ??? Ht 5' 7 (1.702 m) ??? Wt 163 lb (73.9 kg) ??? LMP 02/29/2016 (Exact Date) ??? SpO2 99% ??? BMI 25.53 kg/m2 General: no apparent distress EFM - no contractions, FHR wnl Ext: No edema or pain. Lab Results Component Value Date HGB 10.6 (L) 06/27/2016 Assement: Plan: Continue bedrest with BRPs Should get second dose of steroids today If starts tulio - will tocolyse Pain management discussed - has percocet or tylenol for her hip pain. WIll monitor use. continue current cares Anyi Bah MD ULTING SERVICES MANAGER Ligia Yeung - 09/26/2016 5:[address] Thomas updated on 4 ctx in last hour and frequent uterine irritability, pt currently sleeping. states to continue to monitor and alert him if contractions become more frequent or painful. Ligia Vidal - 09/26/2016 2:25 AM CST Patient complaining of constant pain in hips and thighs- thinks it may be due to being in bed all day. Patient does have uterine irritability but it is not palpable or painful. Category 1 tracing. 200 mg Vistaril was administered earlier in shift but ineffective with helping patient rest. Dr. Thomas called and given update on hip/thigh pain, uterine irritability, scant to no bleeding tonight, category 1 tracing. orders 2 Percocet and patient may be off monitor to shower. ULTING SERVICES MANAGER Kay Penaloza - 09/25/2016 6:38 PM CDT Pt called and said she had passed a clot that was a quarter size and redder than the last clot. Reassured her that baby has been looking good and that she did the right thing to let me know. She said she has had a few contractions in the last hour. She flushed the clot down the toilet. I put an outputPan in the toilet to catch any more clots. Will continue to monitor as ordered. Rosalee Kellogg - 09/25/2016 3:01 PM CDT 1445 pt c/o feeling flush and heart racing. Vital signs stable, afebrile, lavender oil essential andemotional support given. Reyna Carbajal RN - 09/25/2016 1:53 PM CDT Progress Note Keyla's chart and today's events reviewed with Dr. Mora Thomas. Patient received betamethasone 12 mg IM per consult with Dr. Thomas. Given the gestational age and the uncertainty re: status SKY to Dr. Mora Thomas until , maternal, and labor status are clarified to be within scope of CNM practice. Reyna Carbajal APRN, CN Bandt, Kerri Bruce, AMMUNITION ASSEMBLY I LABORER CNM - 09/25/2016 1:10 PM CDT Outpatient/Triage Note: Patient Name: Keyla Porter : 1990 Assessment: @ 29w0d here for evaluation of vaginal bleeding. Plan: -Dr. Thomas consulted concerning continued vaginal bleeding, normal ultrasound result, negative ROM+, wet prep positive for clue cells. Recommends admission to [facility] overnight with continuous monitoring and administering betamethasone for lung maturity. -Dr. Thomas recommends co-management and he will visit patient today. -Low threshold for transfer of care to DIGESTER OPERATOR HELPER with any changes in status. -Betamethasone ordered -Monitor vaginal bleeding -Patient may have regular diet Subjective: Keyla Porter is a 26 y.o. at 29 weeks, with an EDC of 12-11-16 who [place] [facility] [place] [place]. States the low abdominal cramping that she was feeling on arrival has now stopped and she feels occasional achyness in her back. Denies any regular contractions. Reports normal movement. States she just passed a dark red clot of blood into toilet while voiding. Objective: Vital signs: Visit Vitals ??? BP 118/61 ??? Pulse 69 ??? Temp 98.1 ??F (36.7 ??C) (Oral) ??? Resp 16 ??? Ht 5' 7 (1.702 m) ??? Wt 163 lb (73.9 kg) ??? LMP 02/29/2016 (Exact Date) ??? BMI 25.53 kg/m2 FHR: Baseline 135, moderate variability, no accelerations, no decelerations Uterine contractions: none Physical Exam: Abdomen: SIUP, abdomen non-tender SVE: Dimple/30%/high, unable to feel presenting part Temp: [98.1 ??F (36.7 ??C)] 98.1 ??F (36.7 ??C) Heart Rate: [69] 69 Resp: [16] 16 BP: (118)/(61) 118/61 No intake or output data in the 24 hours ending 09/25/16 1310 Results: Wet prep positive for clue cells ROM+ negative GBS pending ULTRASOUND LIMITED OBSTETRICAL 09/25/2016 11:59 AM ?? INDICATION: vaginal bleeding, assess low lying placenta, CELSA, position TECHNIQUE: Transabdominal and endovaginal ultrasound. COMPARISON: Ultrasound 07/27/2016. ?? FINDINGS: POSITION: Vertex PLACENTA LOCATION: Anterior. Inferior placental edge is 6.3 cm from the internal os which is normal. AMNIOTIC FLUID: 18 cm HEART RATE: 138 bpm ?? No abnormalities. ?? IMPRESSION: CONCLUSION: 1. Normal placental location. 2. No bleeding etiology found. Provider:Kerri Casey APRN, CNM TT with patient 30mn >50% time spent counseling. Kerri Casey APRN CNM - 09/25/2016 11:21 AM CDT Outpatient/Triage Note: Patient Name: Keyla Porter : 1990 Assessment: @ 29w0d here for evaluation of vaginal bleeding. Plan: -OB ultrasound ordered to evaluate placenta position, position and CELSA -Wet prep, GBS and ROM +, UA/UC if indicated collected and pending -Dr. Thomas, [facility], consulted on patient's current status, agrees with plan -Cervical exam deferred at this time -Evaluate an needed Subjective: Keyla Porter is a 26 y.o. at 29 weeks gestation, with an EDC of --17 who [place] [facility] [place] [place] vaginal bleeding. States that she woke up at 0400 and used the restroom and felt a gush of fluid. Then at 0630 she felt she needed to go to the restroom again and noted another large gush of fluid. States she did not look at the fluid at that time. At 0930 she wasawoken again and when she went to go upstairs she felt another large gush and noted at that time that she was bleeding. States blood was dark red but enough to soak her underwear and pants. States she has felt occasional cramping that feels like light menstrual cramps. Denies feeling any contractions or back pain. Denies intercourse in last 72 hours. Denies changes in movement. Objective: Vital signs: Visit Vitals ??? BP 118/61 ??? Pulse 69 ??? Resp 16 ??? Ht 5' 7 (1.702 m) ??? Wt 163 lb (73.9 kg) ??? LMP 02/29/2016 (Exact Date) ??? BMI 25.53 kg/m2 FHR: Baseline 140, moderate variability, 10 X 10 accelerations present, no decelerations Uterine contractions: occasional Physical Exam: Abdomen: SIUP, abdomen non-tender SVE: deferred at this time Sterile speculum exam: Thin dark red blood noted in vagina, filled end of speculum, unable to visualize cervix due to amount of blood present in vagina Legs: moves all freely Heart Rate: [69] 69 Resp: [16] 16 BP: (118)/(61) 118/61 No intake or output data in the 24 hours ending 09/25/16 1122 Results: Wet prep collected and pending ROM + collected and pending GBS collected and pending UA, UC if indicated collected and pending Provider:Kerri Casey APRN, CNM TT with patient 30 min >50% time spent counseling. documented in this encounter H&P Notes Holland Thomas MD - 09/25/2016 4:42 PM CDT OB CONSULTATION - BLEEDING IN NAME:Keyla Porter : 1990 GESTATIONAL AGE: 29w0d [facility] ADMISSION DATE: 09/25/2016 PCP: Orion Puente MD CHIEF COMPLAINT: vaginal bleeding in third trimester HPI: I have been requested by Dr Lyndsey Akbar CNM, PHD to evaluate Keyla Porter for vaginal bleeding in her third trimester. Patient is a 26 y.o., female at 29w0d gestation. History obtained through the patient and chart review. Patient has not had bleeding previously in this . Patient reports that she was fine prior to the bleeding starting. Patient denies having had intercourse recently. Patient denies a history of placenta previa. Hx of low lying placenta not seen on todays exam. Patient denies history of cervical insufficiency, placenta previa, Abruptio placenta, uterine rupture and vasa previa. Patient reports good movement since bleeding began. She denies any burning with urination, increased frequency or urgency. Patient denies vaginal discharge/discomfort. DIAGNOSES COMPLICATING Third trimester bleeding OBSTETRICAL HISTORY: OB History Para Term AB TAB SAB Ectopic Multiple Living 3 1 1 1 1 1 PAST MEDICAL HISTORY: Past Medical History Diagnosis [...] no contraindication to vaginal per patient SOCIAL HISTORY: Social History Social History ??? Marital status: [...] ??? Not on file Social History Narrative MEDICATIONS: No current facility-administered medications on file prior to encounter. Current Outpatient Prescriptions on File Prior to Encounter Medication Sig Dispense Refill ??? ferrous sulfate 325 (65 FE) MG tablet Take 1 tablet by mouth once as needed (takes twice per week). ??? PNV cmb#[id number] acid ( COMPLETE) 14-400 mg-mcg Tab Take 1 tablet by mouth daily. 60 tablet 0 ALLERGIES: Allergies Allergen Reactions ??? Morphine Unknown Nerve pain REVIEW OF SYSTEMS Negative except what is stated in the HPI PHYSICAL EXAM Visit Vitals ??? BP 111/57 ??? Pulse 71 ??? Temp 97.7 ??F (36.5 ??C) (Oral) ??? Resp 18 ??? Ht 5' 7 (1.702 m) ??? Wt 163 lb (73.9 kg) ??? LMP 02/29/2016 (Exact Date) ??? SpO2 99% ??? BMI 25.53 kg/m2 General Appearance: Alert, appropriate appearance for age. No acute distress, HEENT Exam: Grossly normal Chest/Respiratory: Clear to auscultation. Cardiovascular: Regular rate and rhythm Gastrointestinal: gravid, non tender, Heart Tones: 140s bpm, non-reactive, Contractions: none Cervix: closedcm, per CNM Membranes: intact Musculoskeletal: moving all four extremities without difficulty Skin: no rash or abnormalities, Neurologic: Normal gait and speech, Psychiatric: Alert and oriented, appropriate affect. LABS: Lab Results Component Value Date HGB 10.6 (L) 06/27/2016 Labs Result Component Result Previous Result ABO/Rh External Result A Positive (05/19/2016) No Results Hemoglobin External Result 11.8 (05/19/2016) No Results Lab Results: personally reviewed IMAGING: Us Ob Limited Result Date: 09/25/2016 ULTRASOUND LIMITED OBSTETRICAL 09/25/2016 11:59 AM INDICATION: vaginal bleeding, assess low lying placenta, CELSA, position TECHNIQUE: Transabdominal and endovaginal ultrasound. COMPARISON: Ultrasound 07/27/2016. FINDINGS: POSITION: Vertex PLACENTA LOCATION: Anterior. Inferior placental edge is6.3 cm from the internal os which is normal. AMNIOTIC FLUID: 18 cm HEART RATE: 138 bpm No abnormalities. CONCLUSION: 1. Normal placental location. 2. No bleeding etiology found. I have reviewed the radiologists interpretation IMPRESSION: 26 y.o., , 29w0d, bleeding in her third trimester complications include: None Recommendations: Admit to the hospital Bedrest with bathroom privileges Bleeding likely due to unknown Check UA and WET prep Complete betamethasone course Obervation Thank you for allowing us to participate in the care of this patient. Please contact us with any questions/concerns. Holland Thomas MD CC: documented in this encounter Plan of Treatment Not on filedocumented as of this encounter Procedures Procedure Name Priority Date/Time Associated Comments Diagnosis US OB BIOPHYS SINGLE Routine 10/07/2016 12:33 Res ults for this GESTATION W MEASURE PM CONSULTING SERVICES MANAGER procedur e are in the results section. US OB BIOPHY Routine 10/04/2016 4:22 PM Res ults for this PROFILE W/O NON CONSULTING SERVICES MANAGER procedure ar e in STRESS SINGLE the results section. HEPATITIS C ANTIBODY Routine 10/01/2016 7:40 AM R esults for this CONSULTING SERVICES MANAGER procedure are i n the results section. HIV ANTIGEN ANTIBODY Routine 10/01/2016 7:40 AM R esults for this COMBO CONSULTING SERVICES MANAGER procedure are i n the results section. CROSSMATCH RED CELLS Routine 10/01/2016 12:04 Res ults for this AM CONSULTING SERVICES MANAGER procedure are i n the results section. CROSSMATCH RED CELLS Routine 10/01/2016 12:04 Res ults for this AM CONSULTING SERVICES MANAGER procedure are i n the results section. US OB BIOPHY Routine 09/30/2016 8:44 AM Res ults for this PROFILE W/O NON CONSULTING SERVICES MANAGER procedure ar e in STRESS SINGLE the results section. CREATININE Routine 09/28/2016 6:25 AM Results f or this CONSULTING SERVICES MANAGER procedure are i n the results section. AST Routine 09/28/2016 6:25 AM Results f or this CONSULTING SERVICES MANAGER procedure are i n the results section. ALT Routine 09/28/2016 6:25 AM Results f or this CONSULTING SERVICES MANAGER procedure are i n the results section. CREATININE Routine 09/27/2016 1:59 PM Results f or this CONSULTING SERVICES MANAGER procedure are i n the results section. AST Routine 09/27/2016 1:59 PM Results f or this CONSULTING SERVICES MANAGER procedure are i n the results section. ALT Routine 09/27/2016 1:59 PM Results f or this CONSULTING SERVICES MANAGER procedure are i n the results section. REFERENCE LAB WORKUP Routine 09/27/2016 1:59 PM R esults for this ([facility]) CONSULTING SERVICES MANAGER procedure are i n the results section. US OB LIMITED >14 Routine 09/27/2016 12:05 Result s for this WEEKS WO PM CONSULTING SERVICES MANAGER procedure are in MEASUREMENT the results section. US ABDOMEN LIMITED Routine 09/27/2016 12:05 Resul ts for this PM CONSULTING SERVICES MANAGER procedure are i n the results section. US OB LIMITED >14 Routine 09/25/2016 11:59 Result s for this WEEKS WO AM CDT procedure are in MEASUREMENT the results section. documented in this encounter Results US OB Biophys Single Gestation Measure (10/07/2016 12:33 PM CONSULTING SERVICES MANAGER) Anatomical Region Laterality Modality Abdomen/Pelvis Other Specimen (Source) Anatomical Location Collection Method / Collectio n Time Received Time / Laterality Volume Impressions 10/07/2016 1:09 PM CONSULTING SERVICES MANAGER CONCLUSION: 1. ??Normal 06/28 biophysical profile. 2. ??Single intrauterine gestation 31 we eks 3 days. There is normal interval growth. 3. ??First ultrasound EDC 12/11/2016. 4. ??No hemorrhage seen. Narrative 10/07/2016 1:09 PM CONSULTING SERVICES MANAGER US BIOPHYSICAL PROFILE W EST WEIGHT 10/07/2016 12:33 PM INDICATION: h/o bleeding in this pregnan cy with ? blood noted on previous ultrasound COMPARISON: Biophysical profile 3 days a go. FINDINGS: Single living fetus, breech presentation . Heart rate of 147 beats per minute. CELSA 23.1 cm. 2/2 movements 2/2 tone 2/2 breathing 2/2 amniotic fluid Total biophysical profile 06/28 BIOMETRY: Biparietal Diameter: 7.9 cm, 31 weeks 5 days Head Circumference: 29.6 cm, 32 weeks 6 days Abdominal Circumference: 26.5 cm, 30 wee ks 5 days Femur Length: 5.7 cm, 30 weeks 1 day Estimated Weight: 1624 +/- 237 g EFW Percentile: 54 percent Cervical Length: 4.2 cm EDC by First US exam: 12/11/2016 EDC by This US exam: 12/06/2016 Composite Age by First US: 30 weeks 5 da ys Composite Age by This US: 31 weeks 3 day s Procedure Note Sandoval Cyr MD - 04/26/2021Fo rmatting of this note might be different from the original. US BIOPHYSICAL PROFILE W EST WEIGH T 10/07/2016 12:33 PM INDICATION: h/o bleeding in this pregnan cy with ? blood noted on previous ultrasound COMPARISON: Biophysical profile 3 days a go. FINDINGS: Single living fetus, breech presentation . Heart rate of 147 beats per minute. CELSA 23.1 cm. 2/2 movements 2/2 tone 2/2 breathing 2/2 amniotic fluid Total biophysical profile 06/28 BIOMETRY: Biparietal Diameter: 7.9 cm, 31 weeks 5 days Head Circumference: 29.6 cm, 32 weeks 6 days Abdominal Circumference: 26.5 cm, 30 wee ks 5 days Femur Length: 5.7 cm, 30 weeks 1 day Estimated Weight: 1624 +/- 237 g EFW Percentile: 54 percent Cervical Length: 4.2 cm EDC by First US exam: 12/11/2016 EDC by This US exam: 12/06/2016 Composite Age by First US: 30 weeks 5 da ys Composite Age by This US: 31 weeks 3 day s IMPRESSION: CONCLUSION: 1. Normal 06/28 biophysical profile. 2. Single intrauterine gestation 31 week s 3 days. There is normal interval growth. 3. First ultrasound EDC 12/11/2016. 4. No hemorrhage seen. Rosa Canseco PA-C IMFarhan US ORDERABLES US OB Biophys Prf wo NonStrs Singls Sgl (10/04/2016 4:22 PM CONSULTING SERVICES MANAGER) Anatomical Region Laterality Modality Abdomen/Pelvis Other Specimen (Source) Anatomical Location Collection Method / Collectio n Time Received Time / Laterality Volume Impressions 10/04/2016 5:04 PM CONSULTING SERVICES MANAGER CONCLUSION: Normal 06/28 biophysical profile. No hemorrhage seen. Narrative 10/04/2016 5:04 PM CONSULTING SERVICES MANAGER BIOPHYSICAL PROFILE 10/04/2016 4:22 PM INDICATION: Vaginal bleeding. COMPARISON: 09/30/2016 and 09/27/2016 ult rasounds. FINDINGS: Single living fetus, vertex presentation . Heart rate of 150 beats per minute. CELSA 16 cm. Placenta location anterior. No hemorrhag e adjacent the cervical os is visualized. 2/2 movements 2/2 tone 2/2 breathing 2/2 amniotic fluid Total biophysical profile 06/28 Procedure Note Sandoval Cyr MD - 04/26/2021Fo rmatting of this note might be different from the original. BIOPHYSICAL PROFILE 10/04/2016 4:22 PM INDICATION: Vaginal bleeding. COMPARISON: 09/30/2016 and 09/27/2016 ult rasounds. FINDINGS: Single living fetus, vertex presentation . Heart rate of 150 beats per minute. CELSA 16 cm. Placenta location anterior. No hemorrhag e adjacent the cervical os is visualized. 2/2 movements 2/2 tone 2/2 breathing 2/2 amniotic fluid Total biophysical profile 06/28 IMPRESSION: CONCLUSION: Normal 06/28 biophysical profile. No hemorrhage seen. Rosa Canseco PA-C [facility] ORDERABLES Hepatitis C antibody (10/01/2016 7:40 AM CONSULTING SERVICES MANAGER) Analysis Performed At Patho logist Time Signature Hepatitis C Negative Negative 10/01/2016 HEALTH Antibody 12:28 PM CONSULTING SERVICES MANAGER [facility] Specimen Anatomical Collection Method / Collection Time Recei cooper Time (Source) Location / Volume Laterality Blood specimen Venipuncture / 10/01/2016 7:40 10/01/20 16 (specimen) Unknown AM CONSULTING SERVICES MANAGER 11:22 AM CONSULTING SERVICES MANAGER Rosa Canseco PA-C LAB - BLOOD ORDERABLES Performing Organization Address City/[facility] Phon e Number [place] [address] [address] [facility] HIV Antigen Antibody Combo (10/01/2016 7:40 AM CONSULTING SERVICES MANAGER) Analysis Performed At Patho logist Time Signature HIV Antigen Negative Negative 10/01/2016 HEALTH Antibody Combo 12:11 PM [facility] Specimen Anatomical Collection Method / Collection Time Recei cooper Time (Source) Location / Volume Laterality Blood specimen Venipuncture / 10/01/2016 7:40 10/01/20 16 (specimen) Unknown AM CONSULTING SERVICES MANAGER 11:22 AM CONSULTING SERVICES MANAGER Holland Thomas MD LAB - BLOOD ORDERABLES Performing Organization Address City/[facility] Phon e Number [place] [address] [address] [facility] Crossmatch red cells (10/01/2016 12:04 AM CONSULTING SERVICES MANAGER) Patholo gist Method Time Signature Crossmatch COMPATIBLE 10/01/2016 BLOODBANK 12:04 AM CONSULTING SERVICES MANAGER BLOOD [id number] 10/01/2016 JN BLOODBANK EXPIRATION 12:04 AM DATE CONSULTING SERVICES MANAGER Unit ABO/RH A Pos 10/01/2016 JN BLOODBANK 12:04 AM CONSULTING SERVICES MANAGER Unit Number [id number] 10/01/2016 JN BLOODBANK 12:04 AM CONSULTING SERVICES MANAGER Status Released 10/01/2016 JN BLOODBANK 12:04 AM CONSULTING SERVICES MANAGER Component Red Blood Cells 10/01/2016 JN BLOODBANK 12:04 AM CONSULTING SERVICES MANAGER Product Code [id number] 10/01/2016 BLOODBANK 12:04 AM CONSULTING SERVICES MANAGER BLOOD TYPE 6200 10/01/2016 JN BLOODBANK 12:04 AM CONSULTING SERVICES MANAGER CODING SYSTEM [id number] 10/01/2016 JN BLOODBANK 12:04 AM CONSULTING SERVICES MANAGER Specimen (Source) Anatomical Location Collection Method / Collectio n Time Received Time / Laterality Volume Rosa Canseco PA-C LAB - BLOOD BANK PRODUCT ORD ER Performing Organization Address City/[facility]/ZIP Code Phon e Number [facility]LO[facility] [address] [place] [address] BLOODBANK [address] [facility] [place] [address] Crossmatch red cells (10/01/2016 12:04 AM CONSULTING SERVICES MANAGER) [facility] Method Time Signature Crossmatch COMPATIBLE 10/01/2016 JN BLOODBANK 12:04 AM CONSULTING SERVICES MANAGER BLOOD [id number] 10/01/2016 BLOODBANK EXPIRATION 12:04 AM DATE CONSULTING SERVICES MANAGER Unit ABO/RH A Pos 10/01/2016 JN BLOODBANK 12:04 AM CONSULTING SERVICES MANAGER Unit Number [id number] 10/01/2016 JN BLOODBANK 12:04 AM CONSULTING SERVICES MANAGER Status Released 10/01/2016 BLOODBANK 12:04 AM CONSULTING SERVICES MANAGER Component Red Blood Cells 10/01/2016 JN BLOODBANK 12:04 AM CONSULTING SERVICES MANAGER Product Code [id number] 10/01/2016 JN BLOODBANK 12:04 AM CONSULTING SERVICES MANAGER BLOOD TYPE 6200 10/01/2016 JN BLOODBANK 12:04 AM CONSULTING SERVICES MANAGER CODING SYSTEM [id number] 10/01/2016 BLOODBANK 12:04 AM CONSULTING SERVICES MANAGER Specimen (Source) Anatomical Location Collection Method / Collectio n Time Received Time / Laterality Volume Rosa Canseco PA-C LAB - BLOOD BANK PRODUCT ORD ER Performing Organization Address City/[facility]/ZIP Code Phon e Number [facility] BLOOD BANK [address] [place] [address] [place] [address] US OB Biophys Prf wo NonStrs Singls Sgl (09/30/2016 8:44 AM CONSULTING SERVICES MANAGER) Anatomical Region Laterality Modality Abdomen/Pelvis Other Specimen (Source) Anatomical Location Collection Method / Collectio n Time Received Time / Laterality Volume Impressions 09/30/2016 9:07 AM CONSULTING SERVICES MANAGER CONCLUSION: Normal 8/8 biophysical profile. Fetus is now in breech presentation. The patient's maternity care nurse, Nakita, was notified of this at the time of dictation. Narrative 09/30/2016 9:07 AM CONSULTING SERVICES MANAGER BIOPHYSICAL PROFILE 09/30/2016 8:44 AM INDICATION: small hem noted on previous ultrasound COMPARISON: 09/27/2016 FINDINGS: Single living fetus, breech presentation . Heart rate of 143 beats per minute. CELSA 13.3 cm. Placenta location anterior. 2/2 movements 2/2 tone 2/2 breathing 2/2 amniotic fluid Total biophysical profile 8/8 Debris previously seen layering by the c ervical os is no longer visualized. Procedure Note Shelley Figueroa MD - 1 BIOPHYSICAL PROFILE 09/30/2016 8:44 AM INDICATION: small hem noted on previous ultrasound COMPARISON: 09/27/2016 FINDINGS: Single living fetus, breech presentation . Heart rate of 143 beats per minute. CELSA 13.3 cm. Placenta location anterior. 2/2 movements 2/2 tone 2/2 breathing 2/2 amniotic fluid Total biophysical profile 8/8 Debris previously seen layering by the c ervical os is no longer visualized. IMPRESSION: CONCLUSION: Normal 8/8 biophysical profile. Fetus is now in breech presentation. The patient's maternity care nurse, Nakita, was notified of this at the time of dictation. Rosa Canseco PA-C IMG US ORDERABLES (ABNORMAL) Creatinine (09/28/2016 6:25 AM CONSULTING SERVICES MANAGER) [facility] Method Time Signature Creatinine 0.52 (L) 0.60 - 09/28/2016 HEALTH 1.10 mg/dL 6:48 AM CONSULTING SERVICES MANAGER [facility] GFR Estimate If >60 >60 09/28/2016 HEALTH Black mL/min/1.7 6:48 AM CONSULTING SERVICES MANAGER [address] LABORATORY GFR Estimate >60 >60 09/28/2016 [facility] mL/min/1.7 6:48 AM CONSULTING SERVICES MANAGER [place] [id number] [facility] Specimen Anatomical Collection Method / Collection Time Recei cooper Time (Source) Location / Volume Laterality Blood specimen Venipuncture / 09/28/2016 6:25 09/28/20 16 6:29 (specimen) Unknown AM CONSULTING SERVICES MANAGER AM CONSULTING SERVICES MANAGER Rosa Canseco PA-C LAB - BLOOD ORDERABLES Performing Organization Address City/[facility] Phon e Number [facility] [place] [address] [address] [facility] [address] [place] [address] LABORATORY AST (09/28/2016 6:25 AM CONSULTING SERVICES MANAGER) P athologist Signature AST 11 0 - 40 U/L 09/28/2016 [facility] 6:48 AM CONSULTING SERVICES MANAGER [facility] LABORATORY Specimen Anatomical Collection Method / Collection Time Recei cooper Time (Source) Location / Volume Laterality Blood specimen Venipuncture / 09/28/2016 6:25 09/28/20 16 6:29 (specimen) Unknown AM CONSULTING SERVICES MANAGER AM CONSULTING SERVICES MANAGER Rosa Canseco PA-C LAB - BLOOD ORDERABLES Performing Organization Address [facility] Phon e Number [facility] [place] [address] [address] [facility] [address] [place] [address] LABORATORY ALT (09/28/2016 6:25 AM CONSULTING SERVICES MANAGER) P athologist Signature ALT 8 0 - 45 U/L 09/28/2016 [facility] 6:48 AM CONSULTING SERVICES MANAGER [facility] LABORATORY Specimen Anatomical Collection Method / Collection Time Recei cooper Time (Source) Location / Volume Laterality Blood specimen Venipuncture / 09/28/2016 6:25 09/28/20 16 6:29 (specimen) Unknown AM CONSULTING SERVICES MANAGER AM CONSULTING SERVICES MANAGER Rosa Canseco PA-C LAB - BLOOD ORDERABLES Performing Organization Address City/[facility]/ZIP Code Phon e Number [facility] [place] [address] [address] [facility] [address] [place] [address] LABORATORY (ABNORMAL) Creatinine (09/27/2016 1:59 PM CONSULTING SERVICES MANAGER) Patholo gist Method Time Signature Creatinine 0.57 (L) 0.60 - 09/27/2016 [facility] 1.10 mg/dL 2:35 PM CONSULTING SERVICES MANAGER [facility] GFR Estimate If >60 >60 09/27/2016 [facility] Black mL/min/1.7 2:35 PM CONSULTING SERVICES MANAGER [facility] 3m2 [facility] GFR Estimate >60 >60 09/27/2016 [facility] mL/min/1.7 2:35 PM CONSULTING SERVICES MANAGER [place] [address] [facility] Specimen Anatomical Collection Method / Collection Time Recei cooper Time (Source) Location / Volume Laterality Blood specimen STRUCTURE OF RIGHT Venipuncture / 09/27/2016 1:59 2:05 (specimen) UPPER LIMB / Unknown PM CONSULTING SERVICES MANAGER PM CONSULTING SERVICES MANAGER Unknown Rosa Canseco PA-C LAB - BLOOD ORDERABLES Performing Organization Address City/[facility]/ZIP Code Phon e Number [facility] [place] [address] [address] [place] [id number] [place] [address] LABORATORY AST (09/27/2016 1:59 PM CONSULTING SERVICES MANAGER) P athologist Signature AST 11 0 - 40 U/L 09/27/2016 [facility] 2:35 PM CONSULTING SERVICES MANAGER [facility] LABOR[facility]ORY Specimen Anatomical Collection Method / Collection Time Recei cooper Time (Source) Location / Volume Laterality Blood specimen STRUCTURE OF RIGHT Venipuncture / 09/27/2016 1:59 2:05 (specimen) UPPER LIMB / Unknown PM CONSULTING SERVICES MANAGER PM CONSULTING SERVICES MANAGER Unknown Rosa Canseco PA-C LAB - BLOOD ORDERABLES Performing Organization Address City/[facility]/ZIP Code Phon e Number [facility] [place] [address] [facility] [address] [place] [address] LABORATORY ALT (09/27/2016 1:59 PM CONSULTING SERVICES MANAGER) P athologist Signature ALT <6 0 - 45 U/L 09/27/2016 [facility] 2:35 PM CONSULTING SERVICES MANAGER [facility] LABORATORY Specimen Anatomical Collection Method / Collection Time Recei cooper Time (Source) Location / Volume Laterality Blood specimen STRUCTURE OF RIGHT Venipuncture / 09/27/2016 1:59 2:05 (specimen) UPPER LIMB / Unknown PM CONSULTING SERVICES MANAGER PM CONSULTING SERVICES MANAGER Unknown Rosa Canseco PA-C LAB - BLOOD ORDERABLES Performing Organization Address City/State/ZIP Code Phon e Number [facility] [place] [address] [facility] [address] [place] [address] LABORATORY Reference Lab Workup ([facility]) (09/27/2016 1:59 PM CONSULTING SERVICES MANAGER) Patholo gist Method Time Signature Ref Lab Antibody See scanned 09/29/2016 [facility] Identification report 7:16 AM CONSULTING SERVICES MANAGER VE BLOOD RESOURCES Specimen Anatomical Collection Method / Collection Time Recei cooper Time (Source) Location / Volume Laterality Blood specimen Venipuncture / 09/27/2016 1:59 09/27/20 16 3:00 (specimen) Unknown PM CONSULTING SERVICES MANAGER PM CONSULTING SERVICES MANAGER Narrative This result has an attachment that is no t available. Holland Thomas MD LAB - [facility] Performing Organization Address City/State/ZIP Code Phon e Number [facility] [place] [address] [address] [facility]/INNOVATIVE BLOOD [address] [place] [address] RESOURCES US OB >14 Weeks Limited wo Measurement (09/27/2016 12:05 PM CONSULTING SERVICES MANAGER) Anatomical Region Laterality Modality Abdomen/Pelvis Other Specimen (Source) Anatomical Location Collection Method / Collectio n Time Received Time / Laterality Volume Impressions 09/27/2016 2:33 PM CONSULTING SERVICES MANAGER CONCLUSION: 1. ??Single, living intrauterine gestati on in cephalic presentation. 2. ??Placenta is anterior without eviden ce of previa or subplacental hematoma. There is minimal, slightly echogenic layering material dependently along the internal cervical os as described above which is new. This may reflect a tiny amount of hemorrhage. 3. ??As seen before, the superior wall o f the bladder has a slightly lobulated appearance, not appreciated on the earlier OB ultrasounds. It's uncertain if these may reflect some pelvic varices in this region. Follow-up of the maternal etienne r could be done postnatally. NOTE: ABNORMAL REPORT THE DICTATION ABOVE DESCRIBES AN ABNORMA LITY FOR WHICH FOLLOW-UP IS NEEDED. Narrative 09/27/2016 2:33 PM CONSULTING SERVICES MANAGER ULTRASOUND LIMITED OBSTETRICAL 09/27/2016 12:05 PM INDICATION: Continued vaginal bleeding a t 29 weeks. TECHNIQUE: Transabdominal ? COMPARISON: 09/25/2016 and older studies. FINDINGS: POSITION: Cephalic PLACENTA LOCATION: Anterior without evid ence of a subplacental hematoma. AMNIOTIC FLUID: 19.7. Cervix is closed a nd of normal length. Dependently, adjacent to the internal cervical os, patient has developed a thin echogenic, layer within the amniotic fluid. This measures 1.8 cm in length and 3 mm in thickness was not seen on the prior study. The superior wall of th e bladder is again noted to have a slightly lobulated appearance. This is similar to the most recent study but is not appreciated on the prior exams. HEART RATE: 157 bpm Procedure Note Nadia Mcclendon MD - 04/26/2021Format ting of this note might be different from the original. ULTRASOUND LIMITED OBSTETRICAL 09/27/2016 12:05 PM INDICATION: Continued vaginal bleeding a t 29 weeks. TECHNIQUE: Transabdominal COMPARISON: 09/25/2016 and older studies. FINDINGS: POSITION: Cephalic PLACENTA LOCATION: Anterior without evid ence of a subplacental hematoma. AMNIOTIC FLUID: 19.7. Cervix is closed a nd of normal length. Dependently, adjacent to the internal cervical os, patient has developed a thin echogenic, layer within the amniotic fluid. This measures 1.8 cm in length and 3 mm in thickness was not seen on the prior study. The superior wall of th e bladder is again noted to have a slightly lobulated appearance. This is similar to the most recent study but is not appreciated on the prior exams. HEART RATE: 157 bpm IMPRESSION: CONCLUSION: 1. Single, living intrauterine gestation in cephalic presentation. 2. Placenta is anterior without evidence of previa or subplacental hematoma. There is minimal, slightly echogenic layering material dependently along the internal cervical os as described above which is new. This may reflect a tiny amount of hemorrhage. 3. As seen before, the superior wall of the bladder has a slightly lobulated appearance, not appreciated on the earlier OB ultrasounds. It's uncertain if these may reflect some pelvic varices in this region. Follow-up of the maternal bladder could be done postnatally. NOTE: ABNORMAL REPORT THE DICTATION ABOVE DESCRIBES AN ABNORMA LITY FOR WHICH FOLLOW-UP IS NEEDED. Holland Thomas MD IMG US ORDERABLES US Abdomen Limited (09/27/2016 12:05 PM CONSULTING SERVICES MANAGER) Anatomical Region Laterality Modality Abdomen/Pelvis Other Specimen (Source) Anatomical Location Collection Method / Collectio n Time Received Time / Laterality Volume Impressions 09/27/2016 12:18 PM CONSULTING SERVICES MANAGER CONCLUSION: 1. ??Normal RUQ ultrasound. Narrative 09/27/2016 12:18 PM CONSULTING SERVICES MANAGER US ABDOMEN LIMITED 09/27/2016 12:05 PM INDICATION: RUQ pain/R flank pain COMPARISON: None. FINDINGS: GALLBLADDER: Normal, without cholelithia sis. BILE DUCTS: No bile duct dilation. The c ommon hepatic duct measures 2 mm. LIVER: Normal where seen. RIGHT KIDNEY: No hydronephrosis. PANCREAS: Not imaged in detail on this l imited study. No incidental abnormalities. No ascites in the right upper quadrant. Procedure Note Sha Hsu M - 04/26/2021Formatting o f this note might be different from the original. US ABDOMEN LIMITED 09/27/2016 12:05 PM INDICATION: RUQ pain/R flank pain COMPARISON: None. FINDINGS: GALLBLADDER: Normal, without cholelithia sis. BILE DUCTS: No bile duct dilation. The c ommon hepatic duct measures 2 mm. LIVER: Normal where seen. RIGHT KIDNEY: No hydronephrosis. PANCREAS: Not imaged in detail on this l imited study. No incidental abnormalities. No ascites in the right upper quadrant. IMPRESSION: CONCLUSION: 1. Normal RUQ ultrasound. Anyi Bah MD IMG US ORDERABLES US OB >14 Weeks Limited wo Measurement (09/25/2016 11:59 AM CDT) Anatomical Region Laterality Modality Abdomen/Pelvis Other Specimen (Source) Anatomical Location Collection Method / Collectio n Time Received Time / Laterality Volume Impressions 09/25/2016 12:12 PM CDT CONCLUSION: 1. ??Normal placental location. 2. ??No bleeding etiology found. Narrative 09/25/2016 12:12 PM CDT ULTRASOUND LIMITED OBSTETRICAL 09/25/2016 11:59 AM INDICATION: vaginal bleeding, assess low lying placenta, CELSA, position TECHNIQUE: Transabdominal and endovagina l ultrasound. COMPARISON: Ultrasound 07/27/2016. FINDINGS: POSITION: Vertex PLACENTA LOCATION: Anterior. Inferior pl acental edge is 6.3 cm from the internal os which is normal. AMNIOTIC FLUID: 18 cm HEART RATE: 138 bpm No abnormalities. Procedure Note Sandoval Cyr MD - 04/26/2021Fo rmatting of this note might be different from the original. ULTRASOUND LIMITED OBSTETRICAL 09/25/2016 11:59 AM INDICATION: vaginal bleeding, assess low lying placenta, CELSA, position TECHNIQUE: Transabdominal and endovagina l ultrasound. COMPARISON: Ultrasound 07/27/2016. FINDINGS: POSITION: Vertex PLACENTA LOCATION: Anterior. Inferior pl acental edge is 6.3 cm from the internal os which is normal. AMNIOTIC FLUID: 18 cm HEART RATE: 138 bpm No abnormalities. IMPRESSION: CONCLUSION: 1. Normal placental location. 2. No bleeding etiology found. Kerri Janis Bandt AMMUNITION ASSEMBLY I LABORER CNM IMG US ORDERABLES documented in this encounter Visit Diagnoses Diagnosis Vaginal bleeding during , antep artum Pelvic pain Unspecified symptom associated with fema le genital organs documented in this encounter Additional Health Concerns Assessment Noted Time PHQ-9 Depression Total Score: 19 09/04/2015 7:20 AM CD T documented as of this encounter Care Teams Technical Staff Assistant Relationship Specialty Start Date End Date No Ref-Primary, Physician PCP - General 07/27/15 04/14/20 documented as of this encounter
--- OUTSIDE RECORDS SUMMARY | 2022-08-31 22:25 | XMS_ITS | Encounter Summary ---
:1990 Author Organization [facility] Address [address] [place] [address] Care Team Providers Name Role Phone No Ref-Primary, Physician Primary Care Provider [phone] Reason for Visit Reason Comments Nausea Vomiting Diarrhea Encounter Details Date Type Department Care Team Description 11/15/2016 Hospital Encounter [facility] Jody gonsalez [facility] Care MD Ambrosio [address] RIZVI [address] [place] [address] 551 25 [id number] [phone] Social History Tobacco Use Types Packs/Day Years [...] - - Weight 79.4 kg (175 lb) 11/15/2016 11:45 AM TRAY CHECKER Height 170.2 cm (5' 7) 11/15/2016 11:45 AM TRAY CHECKER Body Mass Index 27.41 11/15/2016 11:45 AM TRAY CHECKER documented in this encounter Medications at Time of Discharge Medication Sig Dispensed Refills Start Date End Date Vit-Fe Take 1 tablet by 0 04/07/201603/2018 Fumarate-FA ( mouth daily COMPLETE) 14-0.4 MG TABS documented as of this encounter Progress Notes Historical Provider - 11/15/2016 12:29 PM CST Discharge instructions given to patient. Patient verbalizes understanding of discharge instructions. Historical Provider - 11/15/2016 12:[address] Thomas updated on patient arrival to unit c/o nausea and vomiting, headache, and swelling of hands and feet, and diarrhea. Dr. Thomas also updated on FHTs category I and reactive and contraction pattern and strength. See new orders for discharge. documented in this encounter Plan of Treatment Not on filedocumented as of this encounter Visit Diagnoses Not on filedocumented in this encounter Additional Health Concerns Assessment Noted Time PHQ-9 Depression Total Score: 19 09/04/2015 7:20 AM CD T documented as of this encounter Care Teams Milk Deliverer Relationship Specialty Start Date End Date No Ref-Primary, Physician PCP - General 07/27/15 04/14/20 documented as of this encounter
--- OUTSIDE RECORDS SUMMARY | 2022-08-31 22:25 | XMS_ITS | Encounter Summary ---
:1990 Author Organization [facility] Address [address] [place] [address] Care Team Providers Name Role Phone No Ref-Primary, Physician Primary Care Provider [phone] Holland Thomas MD Primary Care Provider [phone] Encounter Details Date Type Department Care Team Description 03/25/2017 [facility] [place] [address] [place] [address] 551 25 [id number] [phone] Social History Tobacco Use Types Packs/Day Years [...] - Inhaled Oxygen Concentration - - Weight 64.4 kg (142 lb) 03/25/2017 3:00 PM CDT Height 167.6 cm (5' 6) 03/25/2017 3:00 PM CDT Body Mass Index 22.92 03/25/2017 3:00 PM CDT documented in this encounter Plan of Treatment Not on filedocumented as of this encounter Visit Diagnoses Not on filedocumented in this encounter Additional Health Concerns Assessment Noted Time PHQ-9 Depression Total Score: 19 09/04/2015 7:20 AM CD T documented as of this encounter Care Teams Mold Maker Relationship Specialty Start Date End Date No Ref-Primary, Physician PCP - General 07/27/15 04/14/20 Holland Thomas MD PCP - General department director 04/15/[address] [id number] documented as of this encounter
--- OUTSIDE RECORDS SUMMARY | 2022-08-31 22:25 | XMS_ITS | Encounter Summary ---
:1990 Author Organization [place] Address [address] [place] [address] Care Team Providers Name Role Phone No Ref-Primary, Physician Primary Care Provider [phone] Holland Thomas MD Primary Care Provider [phone] Encounter Details Date Type Department Care Team Description 12/01/2016 [facility] Provider, [address] [phone] Social History Tobacco Use Types Packs/Day Years [...] documented as of this encounter Care Teams Brush Cleaner Relationship Specialty Start Date End Date No Ref-Primary, Physician PCP - General 07/27/15 04/14/20 Holland Thomas MD PCP - General paratransit driver 04/15/20 [facility] [address] [place] [phone] documented as of this encounter
--- OUTSIDE RECORDS SUMMARY | 2022-08-31 22:25 | XMS_ITS | Encounter Summary ---
:1990 Author Organization [address] [address] Care Team Providers Name Role Phone No Ref-Primary, Physician Primary Care Provider [phone] Holland Thomas MD Primary Care Provider [phone] Reason for Visit Reason Comments Headache Encounter Details Date Type Department Care Team Description 09/19/2016 Communication - [facility] Esthela Salgado Hea dache [facility] [address] [place] [phone] Social History Tobacco Use Types Packs/Day [...] as of this encounter Visit Diagnoses Diagnosis Generalized anxiety disorder Hx of depression, currently p regnant with other poor obstetric hist ory History of laparoscopy Personal history of surgery to other org ans Abnormal antibody titer Other and unspecified nonspecific immuno logical findings Encounter for supervision of other filiberto l , second trimester documented in this encounter Additional Health Concerns Assessment Noted Time PHQ-9 Depression Total Score: 19 09/04/2015 7:20 AM CD T documented as of this encounter Care Teams Cone Tender Relationship Specialty Start Date End Date No Ref-Primary, Physician PCP - General 07/27/15 04/14/20 Holland Thomas MD PCP - General controller coal or ore 04/15/20 [address] [facility] [address] [place], [place] [phone] documented as of this encounter
--- OUTSIDE RECORDS SUMMARY | 2022-08-31 22:25 | XMS_ITS | Encounter Summary ---
:1990 Author Organization [place] Address [address] [place] [address] Care Team Providers Name Role Phone No Ref-Primary, Physician Primary Care Provider [phone] Reason for Visit Reason Comments Laboring Encounter Details Date Type Department Care Team Description 09/19/2016 Hospital Encounter [facility] Reyna Carbajal RN [facility] [address] [place], [place] [phone] [facility] Care Provider, [address] [phone] Social History Tobacco Use Types Packs/Day [...] - - Weight 73.9 kg (163 lb) 09/19/2016 2:02 PM CDT Height 170.2 cm (5' 7) 09/19/2016 2:02 PM CDT Body Mass Index 25.53 09/19/2016 2:02 PM CDT documented in this encounter Medications at Time of Discharge Medication Sig Dispensed Refills Start Date End Date Vit-Fe Take 1 tablet by 0 04/07/201603/2018 Fumarate-FA ( mouth daily COMPLETE) 14-0.4 MG TABS documented as of this encounter Progress Notes Reyna Carbajal RN - 09/19/2016 2:54 PM CDT OB Triage Visit S: Keyla is a at 28 1/7 weeks GA who called c/o bilateral arm weakness, SOB, dependent edema, and rapid heartrate. These symptoms have been repeatedly occurring in the last two weeks or more.This morning she was additionally nauseous. 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 Keyla does not know what brings on the symptoms. Hx anxiety and depression: previously medicated, not on medications throughout this . AP record reviewed. O: Temp: [98.3 ??F (36.8 ??C)] 98.3 ??F (36.8 ??C) Heart Rate: [69] 69 Resp: [18] 18 BP: (110)/(54) 110/54 FHR 145s-150s, moderate variability, no decelerations, accelerations noted. No contraction activity noted. No dependent edema noted in any part of the arms/hands and/or legs/feet. A: Multigravida at 28+ weeks gestation in stable condition. Hypotensive. Hx chronic anxiety. No evidence of PTL/PTB. No evidence of maternal and/or compromise. P: Third trimester teaching and anticipatory guidance provided. Potential range of symptoms resulting from orthostatic hypotension addressed; also need to limit lifting in excess of 15 lbs at work. Note for employer provided. Self-care promoted. Guarded reassurance provided. Signs and symptoms warranting further evaluation addressed including danger signs. 30 minutes of CNM 1:1 [id number] care, > 50% of the time was spent on education and counseling. Jeanna Luke - 09/19/2016 2:42 PM CDT PT. Here for evaluation by CNM c/o swollen hands and feet,nausea and feeling dizzy. Placed on EFM category 1 strip noted. documented in this encounter Plan of Treatment Not on filedocumented as of this encounter Visit Diagnoses Not on filedocumented in this encounter Additional Health Concerns Assessment Noted Time PHQ-9 Depression Total Score: 19 09/04/2015 7:20 AM CD T documented as of this encounter Care Teams Artificial Inseminator Relationship Specialty Start Date End Date No Ref-Primary, Physician PCP - General 07/27/15 04/14/20 documented as of this encounter
--- OUTSIDE RECORDS SUMMARY | 2022-08-31 22:25 | XMS_ITS | Encounter Summary ---
:1990 Author Organization [place] Address [address] [place] [address] Care Team Providers Name Role Phone No Ref-Primary, Physician Primary Care Provider [phone] Holland Thomas MD Primary Care Provider [phone] Encounter Details Date Type Department Care Team Description 03/[facility] [place] [facility] [address] Social History Tobacco Use Types Packs/Day Years Used Date Smoking Tobacco: Former Cigarettes 0.1 Smokeless Tobacco: Never Comments: smoking 10cig/day- down to 1-2 with Alcohol Use Standard Drinks/Week Comments No 0 (1 standard drink = 0.6 oz pure alcoho l) Sex Assigned at Date Recorded Not on file documented as of this encounter OR Notes Anesthesia Postprocedure Evaluation - Timothy Gongora MD - 03/25/2017 7:22 PM CDT Patient: Keyla Porter LAPAROSCOPY, OVARIAN CYSTECTOMY Anesthesia type: general Patient location: Phase II Recovery Last vitals: Vitals: 03/25/17 1900 BP: 112/60 Pulse: (!) 49 Resp: 28 Temp: 36.8 ??C (98.3 ??F) SpO2: 100% Post vital signs: stable Level of consciousness: [...] Safety: ASA10A - No serious adverse event ASA# 38 - New Corneal Injury: ASA38A - No new exposure keratitis or corneal abrasion in PACU Additional Notes: Anesthesia Preprocedure Evaluation - Jimi Engle MD - 03/25/2017 5:01 PM CDT Images from the original note were not included. Anesthesia Preprocedure Evaluation by Jimi Engle MD at 03/25/2017 5:01 PM Author: Jimi Engle MD Service: -- Author Type: Physician Filed: 03/25/2017 5:03 PM Date of Service: 03/25/2017 5:01 PM Status: Signed Screening Specialist: Jimi Engle MD (Physician) Anesthesia Evaluation Patient summary reviewed No history of anesthetic complications Airway Mallampati: I Neck ROM: full Pulmonary - negative ROS and normal exam Cardiovascular - negative ROS and normal exam Rhythm: regular Rate: normal, Neuro/Psych (+) depression, Endo/Other - negative ROS GI/Hepatic/Renal - negative ROS (-) renal disease Dental (+) chipped Anesthesia Plan Planned anesthetic: general endotracheal ASA 1 Induction: intravenous Anesthetic plan and risks discussed with: patient Anesthesia plan special considerations: antiemetics, Post-op plan: routine recovery documented in this encounter Miscellaneous Notes Anesthesia Care Transfer Note - July Monique APRN MURAL PAINTER - 03/25/2017 6:24 PM CDT Last vitals: Vitals: 03/25/17 1822 BP: 116/60 Pulse: 72 Resp: 16 Temp: 36.9 ??C (98.4 ??F) SpO2: 100% Patient's level of consciousness is awake Spontaneous respirations: yes Maintains airway independently: yes Dentition unchanged: yes Oropharynx: oropharynx clear of all foreign objects QCDR Measures: ASA# 20 - Surgical Safety Checklist: ASA20A - Safety Checks Done PQRS# 430 - Adult PONV Prevention: 4558F [...] experience pain >= 7 out of 10 I completed my SBAR handoff to the receiving nurse per policy and procedure. documented in this encounter Plan of Treatment Not on filedocumented as of this encounter Visit Diagnoses Not on filedocumented in this encounter Additional Health Concerns Assessment Noted Time PHQ-9 Depression Total Score: 19 09/04/2015 7:20 AM CD T documented as of this encounter Care Teams Back Digger Operator Relationship Specialty Start Date End Date No Ref-Primary, Physician PCP - General 07/27/15 04/14/20 Holland Thomas MD PCP - General traffic engineering technician 04/15/[address] [address] documented as of this encounter
--- OUTSIDE RECORDS SUMMARY | 2022-08-31 22:25 | XMS_ITS | Encounter Summary ---
:1990 Author Organization [place] Address [address] [place] [address] Care Team Providers Name Role Phone No Ref-Primary, Physician Primary Care Provider [phone] Encounter Details Date Type Department Care Team Description 03/25/2017 Hospital Encounter [facility] [place] [address] [place] [address] [address] RIZVI [facility] [address] [phone] [phone] Social History Tobacco Use Types Packs/Day Years [...] 3:00 PM CDT documented in this encounter Medications at Time of Discharge Medication Sig Dispensed Refills Start Date End Date Vit-Fe Take 1 tablet by 0 04/07/201603/2018 Fumarate-FA ( mouth daily COMPLETE) 14-0.4 MG TABS documented as of this encounter Progress Notes Gladis Rick [facility] - 03/25/2017 3:20 PM CDT Pharmacy Note - Brief Admission Medication History Note Pharmacist completed medication history with the patient while in the [facility]. 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 The patient was asked about OTC/herbal products specifically and the FIRE PROTECTION DESIGNER med list reflects the patient's response. Allergies were reviewed and assessed with the patient, responses were updated in the EMR. Thank you for the opportunity to participate in the care of this patient. Gladis Rick, PharmD 03/25/2017 3:20 PM FIRE PROTECTION DESIGNER Med List Medication Sig Last Dose ??? ferrous sulfate 325 (65 FE) MG tablet Take 1 tablet by mouth once a week. On Wednesdays03/23/2017 documented in this encounter H&P Notes Dion Thomas MD - 03/25/2017 3:15 PM CDT Admission History and Physical Keyla Porter, 1990, PCP: Dion hTomas MD, Code status: Prior Extended Emergency Contact Information Primary Emergency Contact: Jose Hager [facility] Relation: Significant Other Assessment and Plan Active Problems: * No active hospital problems. * Chief Complaint: Pelvic pain HPI: Keyla Porter is a 26 y.o. old female recently seen in ER with severe pelvic pain. US showed complex right ovarian cyst. Medical History Active Ambulatory (Non-Hospital) Problems Diagnosis ??? Postoperative fever ? Pelvic pain ??? Vaginal bleeding ??? Vaginal bleeding during , antepartum ??? Hypotension ??? Anxiety ??? Generalized anxiety disorder ??? Hx of depression, currently ??? History of laparoscopy ??? Abnormal antibody titer ??? Encounter for supervision of other normal , second trimester Past Medical History: Diagnosis Date ??? Abnormal Pap smear of cervix 2011 ??? Allergic ??? Depression ??? Endometriosis ??? Kidney stone ??? Migraine ??? PID (pelvic inflammatory disease) ??? depression 2011 ??? Urinary tract infection ??? Varicella Surgical History She has a past surgical history that includes IUD removal (11/13/2015); Colposcopy (2011); Endometrial ablation; Exploratory laparotomy; and section (N/A, 11/17/2016). Social History Reviewed, and she reports that she has quit smoking. She has never used smokeless tobacco. She reports that she does not drink alcohol or use illicit drugs. Allergies Allergies Allergen Reactions ??? Blood-Group Specific Substance Other (See Comments) Warm autoantibodies present. Blood for transfusion will be delayed. Draw 3 lavender and 1 red tube for type and screen orders. ??? Morphine Nausea And Vomiting and Myalgia Nerve pain Family History Reviewed, and family history includes Alcohol abuse in her maternal aunt; Arthritis in her maternal grandmother, mother, and paternal grandfather; Asthma in her paternal grandfather; Cancer in her paternal grandfather; Dementia in her maternal grandfather; Depression in her mother and paternal grandfather; Diabetes in her paternal grandmother; Drug abuse in her maternal aunt and mother; Early in her father and paternal uncle; Hearing loss in her maternal grandmother and paternal grandfather; Heart disease in her maternal grandmother; Hypertension in her maternal aunt, maternal grandfather, and paternal grandmother; Kidney disease in her maternal aunt; Mental illness in her mother and sister;Stroke in her father, paternal grandfather, and paternal uncle. Prior to Admission Medications Prescriptions Prior to Admission Medication Sig Dispense Refill Last Dose ??? ferrous sulfate 325 (65 FE) MG tablet Take 1 tablet by mouth once as needed (takes twice per week). 03/23/2017 at 0800 Review of Systems: A 12 point comprehensive review of systems was negative except as noted. Physical Exam: Temp: [98.9 ??F (37.2 ??C)] 98.9 ??F (37.2 ??C) Heart Rate: [78] 78 Resp: [16] 16 BP: (120)/(69) 120/69 General Appearance: Alert, cooperative, no distress, appears stated age Head: Normocephalic, without obvious abnormality, atraumatic Eyes: PERRL, conjunctiva/corneas clear, EOM's intact, fundi benign, both eyes Ears: Normal TM's and external ear canals, both ears Nose: Nares normal, septum midline, mucosa normal, no drainage or sinus tenderness Throat: Lips, mucosa, and tongue normal; teeth and gums normal Neck: Supple, symmetrical, trachea midline, no adenopathy; thyroid: no enlargement/tenderness/nodules; no carotid bruit or JVD Back: Symmetric, no curvature, ROM normal, no CVA tenderness Lungs: Clear to auscultation bilaterally, respirations unlabored Chest Wall: No tenderness or deformity Heart: Regular rate and rhythm, S1 and S2 normal, no murmur, rub or gallop Breast Exam: No tenderness, masses, or nipple abnormality Abdomen: Soft, non-tender, bowel sounds active all four quadrants, no masses, no organomegaly Genitalia: Normal female without lesion, discharge or tenderness Rectal: Normal tone, no masses or tenderness; guaiac negative stool Extremities: Extremities normal, atraumatic, no cyanosis or edema Pulses: 2+ and symmetric all extremities Skin: Skin color, texture, turgor normal, no rashes or lesions Lymph nodes: Cervical, supraclavicular, and axillary nodes normal Neurologic: CNII-XII intact, normal strength, sensation and reflexes throughout Pertinent Labs Lab Results: personally reviewed. Pertinent Radiology Radiology Results: Personally reviewed impression/s EKG Results: not reviewed. Advanced Care Planning Discharge Planning discussed with Patient Discussed care with patient for 15 minutes with greater than 50% of time spent in counseling and coordination of care. documented in this encounter Miscellaneous Notes Op Note - Dion Thomas MD - 03/25/2017 12:00 AM CDT DATE OF SERVICE: 03/25/2017 DATE OF SERVICE: 03/25/2017 PREOPERATIVE DIAGNOSIS: Right lower quadrant pain, complex right ovarian cyst. POSTOPERATIVE DIAGNOSIS: Right lower quadrant pain, complex right ovarian cyst. PROCEDURE: Laparoscopy, right ovarian cystectomy. SURGEON: Dion Thomas MD ANESTHESIA: General. ESTIMATED BLOOD LOSS: 5 mL replaced with lactated Ringer's. DRAINS: None. COMPLICATIONS: None. HISTORY OF PRESENT ILLNESS: This is a 26-year-old female with severe right lower quadrant pain. She was given informed consent for the above. The risks, benefits and alternatives were discussed. She expressed understanding and wished to proceed. OPERATIVE FINDINGS: The right ovary was scarred into the right pelvic sidewall. There was a large approximately 8 cm cyst that contained clear fluid. It did have septations within it. No other abnormalities were noted. PROCEDURE NOTE: The patient was brought to the operating room and after induction of general anesthesia, was prepped and draped in the dorsal lithotomy position. A timeout was called, and the patient and procedure were verified. A Toney was placed, and attention was directed to the abdomen where a small infraumbilical incision was made. A Veress needle was inserted, and the abdomen was insufflated with 3 liters of CO2. A 5 mm trocar and trocar sheath was inserted, and a laparoscope was introduced. Two additional incision where then made, 1 in the right, 1 in the left lower quadrant, and 5 mm trocars were placed under direct visualization. The pelvis was inspected with findings as noted above. The cyst was fenestrated and all adhesions around the ovary were taken down so that it was freely mobile. Good hemostasis was noted. At this point, the decision was made to terminate the procedure. CO2 was allowed to be released from the abdomen. All the instruments were removed. The incisions were closed with 4-0 nylon. Sponge and instrument counts were correct. The patient tolerated the procedure well and was taken to the recovery room in good condition. DION THOMAS MD ta D 04/03/2017 10:00:59 T 04/03/2017 13:44:15 R 04/03/2017 13:44:15 [id number] cc:DION THOMAS MD documented in this encounter Plan of Treatment Not on filedocumented as of this encounter Visit Diagnoses Not on filedocumented in this encounter Additional Health Concerns Assessment Noted Time PHQ-9 Depression Total Score: 19 09/04/2015 7:20 AM CD T documented as of this encounter Care Teams Stock Sorter Relationship Specialty Start Date End Date No Ref-Primary, Physician PCP - General 07/27/15 04/14/20 documented as of this encounter
--- OUTSIDE RECORDS SUMMARY | 2022-08-31 22:25 | XMS_ITS | Encounter Summary ---
:1990 Author Organization [place] Address [address] [place] [address] Care Team Providers Name Role Phone No Ref-Primary, Physician Primary Care Provider [phone] Holland Thomas MD Primary Care Provider [phone] Encounter Details Date Type Department Care Team Description 09/01/2016 [facility] [place] [facility], [facility] [address] [place], [place] [phone] [place] [address] (Wo rk) Social History Tobacco Use Types [...] documented as of this encounter Care Teams Chemical Inspector Relationship Specialty Start Date End Date No Ref-Primary, Physician PCP - General 07/27/15 04/14/20 Holland Thomas MD PCP - General cd manufacturing supervisor 04/15/[address] [place] [address] [address] [place] [address] documented as of this encounter
--- OUTSIDE RECORDS SUMMARY | 2022-08-31 22:25 | XMS_ITS | Encounter Summary ---
:1990 Author Organization [facility] Address [address] [place] [address] Care Team Providers Name Role Phone No Ref-Primary, Physician Primary Care Provider [phone] Reason for Visit Reason Comments Pelvic Pain Encounter Details Date Type Department Care Team Description 03/16/2017 Emergency [facility] ProviderEmilie Right ovarian cyst; [facility] Yeast vagini tis Emergency Department [address] [place] [id number] Social History Tobacco Use Types Packs/Day [...] - - Weight 64.4 kg (142 lb) 03/16/2017 6:29 PM CDT Height 167.6 cm (5' 6) 03/16/2017 6:29 PM CDT Body Mass Index 22.92 03/16/2017 6:29 PM CDT documented in this encounter Medications at Time of Discharge Medication Sig Dispensed Refills Start Date End Date Vit-Fe Take 1 tablet by 0 04/07/201603/2018 Fumarate-FA ( mouth daily COMPLETE) 14-0.4 MG TABS documented as of this encounter ED Notes Historical Provider - 03/16/2017 6:47 PM CDT eMERGENCY dEPARTMENT eNCOUnter CHIEF COMPLAINT Chief Complaint Patient presents with ??? Pelvic Pain HPI Keyla Porter is a 26 y.o. female with a history including endometrial ablation, IUD removal, and who presents to the emergency department for evaluation of pelvic pain. She reports onsetof pelvic pain last night which was exacerbated after intercourse this morning. She reports a year-long history of pelvic problems including recently diagnosed endometriosis, tubal ligation, and perforated uterus due to IUD. She normally takes one half-tablet of percocet 535 which resolves pain from endometriosis. Today's sharp pain which began suddenly after intercourse and was severe enough such that she had difficulty and worsening pain with sitting, walking, standing and with urination. She local izes the pain internally near the cervix. No urinary symptoms such as frequency, dysuria or hematuria, vaginal discharge or bleeding, or change in bathroom habits. She attempted hot showers, muscle rubs and percocet without success, prior to arrival. No fever or chills, blurry vision, sore throat, chest pain, dysuria or hematuria, bleeding, or numbness or tingling or weakness in the extremities. The creation of this record is based on the scribe???s observations of the work being performed by Néstor Bragg MD and the provider???s statements to them. It was created on his behalf by Darya Jain??o, a trained medical communication specialist. This document has been checked and approved by the attending provider. PAST MEDICAL HISTORY Past Surgical History: Procedure Laterality Date ??? SECTION N/A 11/17/2016 Procedure: SECTION; Surgeon: Holland Thomas MD; Location: [facility] L+D MD; Service: ??? COLPOSCOPY 2011 ??? ENDOMETRIAL ABLATION during one of the laparotomies ??? EXPLORATORY LAPAROTOMY 3x - last in 10/2015, 2010, Gyne surgeon in 2015 states no contraindication to vaginal per patient ??? IUD removal 11/13/2015 laproscopic procedure Past Medical History: Diagnosis Date ??? Abnormal Pap smear of cervix 2011 ??? Allergic ??? Depression ??? Endometriosis ??? Kidney stone ??? Migraine ??? PID (pelvic inflammatory disease) ??? depression 2011 ??? Urinary tract infection ??? Varicella ALLERGIES Allergies Allergen Reactions ??? Blood-Group Specific [...] protection: IUD, None Other Topics Concern ??? None Social History Narrative REVIEW OF SYSTEMS Review of Systems Constitutional: Negative for fever. Gastrointestinal: Negative for vomiting. PHYSICAL EXAM VITAL SIGNS: BP 118/64 Pulse 78 Temp 98.2 ??F (36.8 ??C) (Oral) Resp 16 Ht 5' 6 (1.676 m) Wt 142 lb (64.4 kg) LMP Comment: Tubal January 2017 SpO2 100% BMI 22.92 kg/m2 Physical Exam Constitutional: She appears well-developed and well-nourished. No distress. HENT: Head: Normocephalic and atraumatic. Right Ear: External ear normal. Left Ear: External ear normal. Nose: Nose normal. Mouth/Throat: Oropharynx is clear and moist. No oropharyngeal exudate. Eyes: Conjunctivae and EOM are normal. Cardiovascular: Normal rate, regular rhythm and normal heart sounds. No murmur heard. Pulmonary/Chest: Effort normal and breath sounds normal. No respiratory distress. She has no wheezes. She exhibits no tenderness. Abdominal: Soft. Bowel sounds are normal. She exhibits no distension and no mass. There is tenderness in the suprapubic area. Genitourinary: Genitourinary Comments: Pelvic examination performed by me in presence of female nurse flooring installer. Inspection of external genitalia shows no abnormality. Speculum examination shows watery white discharge in the vaginal vault. No blood present. Os is closed. Minimal bleeding from os with cervical swab. Right adnexal tenderness, cervical motion tenderness, no left adnexal tenderness. Musculoskeletal: She exhibits no edema, tenderness or deformity. Neurological: She is alert. No cranial nerve deficit. Skin: Skin is warm and dry. Psychiatric: She has a normal mood and affect. Her behavior is normal. Nursing note and vitals reviewed. LABS Pertinent lab results reviewed in chart. Recent Results (from the past 48 hour(s)) Urinalysis-UC if Indicated Collection Time: 03/16/17 7:06 PM Result Value Ref Range Color, UA Yellow Colorless, Yellow, Straw, Light Yellow Clarity, UA Clear Clear Glucose, UA Negative Negative Bilirubin, UA Negative Negative Ketones, UA Negative Negative, 60 mg/dL Specific [place], UA 1.019 1.001 - 1.030 Blood, UA Negative Negative pH, UA 6.5 4.5 - 8.0 Protein, UA Negative Negative mg/dL Urobilinogen, UA <2.0 E.U./dL <2.0 E.U./dL, 2.0 E.U./dL Nitrite, UA Negative Negative Leukocytes, UA Negative Negative POCT , urine Collection Time: 03/16/17 7:06 PM Result Value Ref Range POC Preg, Urine Negative Negative POCt Kit Lot Number [id number] POCT Kit Expiration Date Pos Control Valid Control Valid Control Neg Control Valid Control Valid Control Dipstick Lot Number [id number] Dipstick Expiration Date 2017-07 POC Specific [place], Urine 1.015 Wet Prep, Vaginal Collection Time: 03/16/17 8:19 PM Result Value Ref Range Yeast Result Yeast Seen (!) No yeast seen Trichomonas No Trichomonas seen No Trichomonas seen Clue Cells, Wet Prep No Clue cells seen No Clue cells seen EKG RADIOLOGY Us Pelvis With Transvaginal Non Ob Result Date: 03/16/2017 US PELVIS WITH TRANSVAGINAL NON OB 03/16/2017 9:00 PM INDICATION: PELVIC PAIN TECHNIQUE: Transabdominal scans were performed. Endovaginal ultrasound was performed to better visualize the adnexa. COMPARISON: 02/06/2017 FINDINGS: Uterus measures 9.2 x 4.4 x 5.8 cm. Normal uterus with no masses. Endometrial thickness is 8 mm. Previously seen IUD is no longer present. Right ovary measures 4.6 x 2.2 x 2 cm.2.7 cm complex right ovarian cyst is new from previous. Normal Doppler flow to the ovary. Left ovarymeasures 3.3 x 1.3 x 2.9 cm. Normal left ovary. Normal arterial duplex. Small amount of free pelvic fluid. CONCLUSION: 1. Small hemorrhagic right ovarian cyst is new from previous. 2. Small amount of free pelvic fluid. 3. Previously seen IUD is no longer present. PROCEDURES TELEPHONE CONSULTS ED MEDS Medications HYDROmorphone injection 1 mg (DILAUDID) (1 mg Subcutaneous Given 03/16/172003) fluconazole tablet 200 mg (DIFLUCAN) (200 mg Oral Given 03/16/172211) ED COURSE & MEDICAL DECISION MAKING This is a 26-year-old woman who presents to the emergency department with 1 day of pelvic pain. Examination shows watery white vaginal discharge, right adnexal tenderness, cervical motion tenderness, otherwise unremarkable. She is afebrile and not hypoxic. Differential includes ovarian cyst, sexually transmitted infection, Transvaginal pelvic ultrasound with small hemorrhagic right ovarian cyst, otherwise unremarkable HCG negative UA negative for infection or blood Wet prep positive for yeast, negative for trichomonas or clue cells On reevaluation by me patient appears comfortable. She denies concern for sexually transmitted infection. She is stable for discharge home with expectant management for ovarian cyst. She reports she has medications at home. She is agreeable to treatment plan. IMPRESSION 1. Right ovarian cyst 2. Yeast vaginitis DISCHARGE MEDICATIONS Discharge Medication List as of 03/16/2017 9:26 PM Néstor Gonzalez MD personally performed the services described in this documentation, as scribed by Darya Jain??o in my presence, and it is both accurate and complete. Néstor Bragg MD 03/17/17 0124 documented in this encounter Plan of Treatment Not on filedocumented as of this encounter Procedures Procedure Name Priority Date/Time Associated Comments Diagnosis US PELVIC Routine 03/16/2017 9:00 PM Results f or this TRANSABDOMINAL AND CDT procedure are in TRANSVAGINAL the results section. documented in this encounter Results US Pelvic Complete with Transvaginal (03/16/2017 9:00 PM CDT) Anatomical Region Laterality Modality Abdomen/Pelvis Other Specimen (Source) Anatomical Location Collection Method / Collectio n Time Received Time / Laterality Volume Impressions 03/16/2017 9:14 PM CDT CONCLUSION: 1. ??Small hemorrhagic right ovarian cys t is new from previous. 2. ??Small amount of free pelvic fluid. 3. ??Previously seen IUD is no longer pr esent. Narrative 03/16/2017 9:14 PM CDT US PELVIS WITH TRANSVAGINAL NON OB 03/16/2017 9:00 PM INDICATION: PELVIC PAIN TECHNIQUE: Transabdominal scans were per formed. Endovaginal ultrasound was performed to better visualize the adnexa. COMPARISON: 02/06/2017 FINDINGS: Uterus measures 9.2 x 4.4 x 5.8 cm. Norm al uterus with no masses. Endometrial thickness is 8 mm. Previousl y seen IUD is no longer present. Right ovary measures 4.6 x 2.2 x 2 cm. 2 .7 cm complex right ovarian cyst is new from previous. Normal Doppler flow to the ovary. Left ovary measures 3.3 x 1.3 x 2.9 cm. Normal left ovary. Normal arterial duplex. Small amount of free pelvic fluid. Procedure Note Alvin Salter MD - 04/27/2021Fo rmatting of this note might be different from the original. US PELVIS WITH TRANSVAGINAL NON OB 03/16/2017 9:00 PM INDICATION: PELVIC PAIN TECHNIQUE: Transabdominal scans were per formed. Endovaginal ultrasound was performed to better visualize the adnexa. COMPARISON: 02/06/2017 FINDINGS: Uterus measures 9.2 x 4.4 x 5.8 cm. Norm al uterus with no masses. Endometrial thickness is 8 mm. Previousl y seen IUD is no longer present. Right ovary measures 4.6 x 2.2 x 2 cm. 2 .7 cm complex right ovarian cyst is new from previous. Normal Doppler flow to the ovary. Left ovary measures 3.3 x 1.3 x 2.9 cm. Normal left ovary. Normal arterial duplex. Small amount of free pelvic fluid. IMPRESSION: CONCLUSION: 1. Small hemorrhagic right ovarian cyst is new from previous. 2. Small amount of free pelvic fluid. 3. Previously seen IUD is no longer pres ent. Historical Provider IMG US ORDERABLES documented in this encounter Visit Diagnoses Diagnosis Right ovarian cyst Other and unspecified ovarian cyst Yeast vaginitis Candidiasis of vulva and vagina documented in this encounter Additional Health Concerns Assessment Noted Time PHQ-9 Depression Total Score: 19 09/04/2015 7:20 AM CD T documented as of this encounter Care Teams Lead Cargoman Relationship Specialty Start Date End Date No Ref-Primary, Physician PCP - General 07/27/15 04/14/20 documented as of this encounter
--- OUTSIDE RECORDS SUMMARY | 2022-08-31 22:25 | XMS_ITS | Encounter Summary ---
:1990 Author Organization [facility] Address [facility] [place] [address] Care Team Providers Name Role Phone No Ref-Primary, Physician Primary Care Provider [phone] Holland Thomas MD Primary Care Provider [phone] Encounter Details Date Type Department Care Team Description 11/21/2016 Home Care/Hospice - [facility] Zeenat Olson RN [facility] [address] [facility] [address] [place] [phone] Social History Tobacco Use Types Packs/Day [...] documented as of this encounter Care Teams Account Development Representative Relationship Specialty Start Date End Date No Ref-Primary, Physician PCP - General 07/27/15 04/14/20 Holland Thomas MD PCP - General after school teacher [facility] [address] [facility] [address] [place], [place] [id number] documented as of this encounter
--- OUTSIDE RECORDS SUMMARY | 2022-08-31 22:25 | XMS_ITS | Encounter Summary ---
:1990 Author Organization [facility] Address [address] [place] [address] Care Team Providers Name Role Phone No Ref-Primary, Physician Primary Care Provider [phone] Reason for Visit Reason Comments Back Pain Encounter Details Date Type Department Care Team Description 07/08/2017 [facility] Ramírez barron MD Back pain [facility] Emergency [address] [place] [address] [phone] Social History Tobacco Use Types Packs/Day Years [...] - Inhaled Oxygen Concentration - - Weight 60.8 kg (134 lb) 07/08/2017 1:23 PM CDT Height - - Body Mass Index 20.99 04/16/2017 1:15 PM CDT documented in this encounter Medications at Time of Discharge Medication Sig Dispensed Refills Start Date End Date Vit-Fe Take 1 tablet by 0 04/07/201603/2018 Fumarate-FA ( mouth daily COMPLETE) 14-0.4 MG TABS documented as of this encounter ED Notes Ramírez Bethea - 07/08/2017 2:46 PM CDT eMERGENCY dEPARTMENT eNCOUnter CHIEF COMPLAINT Chief Complaint Patient presents with ??? Back Pain HPI Keyla Porter is a 26 y.o. female who presents with for evaluation of back pain. 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 in her lower mid back. She was not concerned at first because she did not have much pain. On her drive home, her pain increased. She took ibuprofen and had no relief. She tried to take a hot bath and her pain increased. She then switched to icing her back with minimal relief. She states this morning she tried to brick picker her infant when she had a sharp ???white noise sensation?? in her back again that shot down her left leg to her knee. Currently in the ED, the patient rates her pain an 8/10 in severity. She states that her pain radiates up and outwards, and sometimes to her left leg down to her knee. She states that moving and laying on her back makes her pain worse. She states that laying on her side with her knees bent helps alleviate her pain. She denies having trauma to her back, spinal surgeries, history of recurrent infections, diabetes, HIV, fever, or any other associated injury or complaint. The creation of this record is based on the scribe???s observations of the work being performed by Ramírez Nova MD and the provider???s statements to them. It was created on his behalf by Jenni Mccord, a trained pediatrician/medical doctor. This document has been checked and approved by the attending provider. PAST MEDICAL HISTORY Past Medical History: Diagnosis Date ??? Abnormal Pap smear of cervix 2011 ??? Allergic ??? Anemia ??? Depression ??? Endometriosis ??? Endometriosis ??? Kidney stone ??? Migraine ??? PID (pelvic inflammatory disease) ??? depression 2011 ??? Urinary tract infection ??? Varicella SURGICAL HISTORY Past Surgical History: Procedure Laterality Date ??? SECTION N/A 11/17/2016 Procedure: SECTION; Surgeon: Holland Thomas MD; Location: [facility] [place]; Service: ??? COLPOSCOPY 2011 ??? ENDOMETRIAL ABLATION during one of the laparotomies ??? EXPLORATORY LAPAROTOMY 3x - last in 10/2015, 2010, Gyne surgeon in 2015 states no contraindication to vaginal per patient ??? IUD removal 11/13/2015 laproscopic procedure ??? HI LAP,FULGURATE/EXCISE LESIONS Right 03/25/2017 Procedure: LAPAROSCOPY, OVARIAN CYSTECTOMY; Surgeon: Holland Thomas MD; Location: [facility] OR; Service: Gynecology CURRENT MEDICATIONS Discharge Medication List as of 07/08/2017 3:10 PM START taking these medications Details cyclobenzaprine (FLEXERIL) 10 MG tablet Take 1 tablet (10 mg total) by mouth 2 (two) times a day as needed for muscle spasms., Starting 07/08/2017, Until Discontinued, Print naproxen (NAPROSYN) 500 MG tablet Take 1 tablet (500 mg total) by mouth 2 (two) times a day with meals., Starting 07/08/2017, Until Discontinued, Print CONTINUE these medications which have NOT CHANGED Details ferrous sulfate 325 (65 FE) MG tablet Take 1 tablet by mouth once a week. On Wednesdays, Until Discontinued, Historical Med ALLERGIES Allergies Allergen Reactions ??? Blood-Group Specific [...] None Social History Narrative REVIEW OF SYSTEMS Constitutional: Denies fever, chills, excessive weight loss Eyes: Denies any vision changes Respiratory: Denies productive cough or shortness of breath Cardiovascular: Denies chest pain or palpitations GI: Denies abdominal pain, nausea, vomiting, or change in bowel or bladder habits Musculoskeletal: Endorses lower back pain Skin: Denies rash Neurologic: Denies headache, focal weakness or sensory changes Psych: Mood and affect normal All systems negative except as marked. PHYSICAL EXAM VITAL SIGNS: BP 113/74 (Patient Position: Sitting) Pulse 62 Temp 97.2 ??F (36.2 ??C) (Oral) Resp 22 Wt 134 lb (60.8 kg) SpO2 98% BMI 20.99 kg/m2 Constitutional: Awake, alert, in no apparent distress HENT: Normocephalic, Atraumatic, Bilateral external ears normal, Oropharynx moist, Nose normal. Neck- Normal range of motion, No tenderness, Supple, No stridor. Eyes: PERRL, EOMI, Conjunctiva normal, No discharge. Respiratory: Normal breath sounds, No respiratory distress, No wheezing Cardiovascular: Normal heart rate, Normal rhythm, No appreciable rubs or gallops. GI: Soft, No tenderness, No distension, No palpable masses Musculoskeletal: Intact distal pulses, No edema. Good range of motion in all major joints. No tenderness to palpation or major deformities noted. Back: non-tender along midline, c, and t spine with minimal lumbar tenderness, no step offs or signsof trauma Integument: Warm, Dry, No erythema, No rash. Neurologic: Alert & oriented, Normal motor function, Normal sensory function, No focal deficits noted. Negative straight leg test bilaterally Psychiatric: Affect normal, Judgment normal, Mood normal. ED COURSE & MEDICAL DECISION MAKING Again, the patient is a 26 y.o. female who presents with acute, mild low back pain. The patient appears nontoxic with stable vital signs. Overall, the patient has a benign physical exam. Patient has a GCS of 15 with no focal neuro deficits. She denies any saddle anesthesia, bowel or bladder incontinence, numbness or tingling, fever or chills, recurrent infections, recent spinal instrumentation, or other red flags. Clinically, given history and exam noted, nothing to suggest cauda equina, spinal cordcompromise, epidural bleed or abscess, discitis, osteomyelitis, or other more malicious etiology of symptoms. Given her otherwise benign exam and well appearance, no indication for emergent MRI or other imaging studies, no indications for laboratory studies. No flank pain, no change in bowel or bladder habits, nothing to suggest torsion, AAA, GI bleed, nephrolithiasis or pyelonephritis. History and exam consistent with muscle skeletal strain/sprain. Will discharge with a course of naproxen and Flexeril, advised no other NSAIDs while taking naproxen. Also please referral to the spine care center. Recommended that she follows up with her primary care provider or spine care center in the next 3-5 days. Because all these recommendations with the patient was in agreement. Return precautions provided. All questions were answered and reasons to return were again discussed. Patient felt comfortable withthis plan and the patient was discharged in stable condition. FINAL IMPRESSION 1. Back pain Discharge Medication List as of 07/08/2017 3:10 PM START taking these medications Details cyclobenzaprine (FLEXERIL) 10 MG tablet Take 1 tablet (10 mg total) by mouth 2 (two) times a day as needed for muscle spasms., Starting 07/08/2017, Until Discontinued, Print naproxen (NAPROSYN) 500 MG tablet Take 1 tablet (500 mg total) by mouth 2 (two) times a day with meals., Starting 07/08/2017, Until Discontinued, Print Ramírez Gonzalez MD personally performed the services described in this documentation, as scribed by Jenni Mccord in my presence, and it is both accurate and complete. Ramírez Bethea MD 07/08/17 3573 documented in this encounter Plan of Treatment Not on filedocumented as of this encounter Visit Diagnoses Diagnosis Back pain Backache, unspecified documented in this encounter Additional Health Concerns Assessment Noted Time PHQ-9 Depression Total Score: 19 09/04/2015 7:20 AM CD T documented as of this encounter Care Teams Sap Technical Architect Relationship Specialty Start Date End Date No Ref-Primary, Physician PCP - General 07/27/15 04/14/20 documented as of this encounter
--- OUTSIDE RECORDS SUMMARY | 2022-08-31 22:25 | XMS_ITS | Encounter Summary ---
:1990 Author Organization [facility] Address [address] [place] [address] Care Team Providers Name Role Phone No Ref-Primary, Physician Primary Care Provider [phone] Encounter Details Date Type Department Care Team Description 12/01/2016 Hospital Encounter [facility] Provider, Histo rical Breast abscess U [address] [place] [id number] Social History Tobacco Use Types Packs/Day [...] as of this encounter Care Teams Agriculture Science Teacher Relationship Specialty Start Date End Date No Ref-Primary, Physician PCP - General 07/27/15 04/14/20 documented as of this encounter
--- OUTSIDE RECORDS SUMMARY | 2022-08-31 22:25 | XMS_ITS | Encounter Summary ---
:1990 Author Organization [place] Address [address] [place] [address] Care Team Providers Name Role Phone No Ref-Primary, Physician Primary Care Provider [phone] Holland Thomas MD Primary Care Provider [phone] Amarilys Friedman BINDERY TECHNICIAN Unavailable Encounter Details Date Type Department Care Team Description 11/25/2016 Records - [facility] Provider, [facility] [address] [address] Social History Tobacco Use Types Packs/Day Years Used Date Smoking Tobacco: Former Cigarettes 0.1 Smokeless Tobacco: Never Comments: smoking 10cig/day- down to 1-2 with Alcohol Use Standard Drinks/Week Comments No 0 (1 standard drink = 0.6 oz pure alcoho l) Sex Assigned at Date Recorded Not on file documented as of this encounter Progress Notes Historical Provider - 11/25/2016 1:20 PM CST Assessment: plugged duct vs abscess Plan: 1)prolonged moist heat 2) electric toothbrush at sore spot 3) soy lecithin 4) RTC next 5) put to breast 2 more times a day Subjective: Pt is here today because: d/c milk came in , engorgement, painful, hard to get anything from pump at first, right breast quite a bit, 15mL out of L, pain in the nipple, feels more solid, left side feels hard Infants name: Chantelle Hager Infant's bday: [birth year] 's weight: 7lb 2 oz Mode of delivery: c Infants MD: Virgen Discharge weight: 6lb 10.2 Frequency and duration of feedings: 10-20 min per breast, supplement with formula, feed first, 6x, both breasts for most feedings Swallows audible per mother: yes Numbers of feedings in 24 hours: 6 Number urines per day: 7 Number of stools per day and their color: 4-5 yellow seedy Supplementation: 1.5 oz of formula 10 min Pumpin oz out of right, but hard to get anything out of left Objective/Physical exam: Mother: Noticed breasts grew larger and areolas darkened during and she noticed primary engorgement when her milk came in. Her nipples are everted, the areola is compressible, the breast is soft and full. Sore nipples: left sore, left breast has mass that you can see through skin EPDS: [place] Depression Scale EPDS Total Score: 6 (11/25/2016 1:00 PM) Assessment of : 21% Weight for age percentile and 5 oz away from birthweight at 8 days old Age today: 8d Today's weight: 6lb 13 oz Amount of milk transferred from LEFT side: 0 oz Amount of milk transferred from RIGHT side: 0.8oz Baby has full flexion of arms and legs, normal tone, behavior is alert and active, respiratory is normal, skin is normal, jaw is normal size and alignment, palate is normal, frenulum is normal, baby can lateralize tongue, lift tongue to the roof of mouth, tongue can protrude tongue past bottom gum line, and hydration is normal. Baby thrush: none, white tongue only Jaundice: none Feeding assessment by IBCLC: latches well. Suck swallow ratio good on the R. Baby can hold suction with tongue while at the breast. Alignment: The baby was flex relaxed. Baby's head was aligned with its trunk. Baby did face mother. Baby was in cradle position today. Areolar Grasp: Baby was able to open mouth wide. Babies lips were not pursed. Baby's lips did flangeoutward. Baby had complete seal. Aerolar Compression: Baby made rhythmic motion. There were no clicking or smacking sounds. There wasno severe nipple discomfort. Audible swallowing: Baby made quiet sounds of swallowing: There was an increase in frequency after milk ejection relfex. The milk ejection reflex is normal and milk supply is normal on R side. Current Outpatient Prescriptions: ??? ferrous sulfate 325 (65 FE) MG tablet, Take 1 tablet by mouth once as needed (takes twice per week)., Disp: , Rfl: ??? oxyCODONE-acetaminophen (PERCOCET) 5-325 mg per tablet, Take 1-2 tablets by mouth every 4 (four)hours as needed for pain., Disp: , Rfl: ??? PNV cmb#74-tavb-niuxp acid ( COMPLETE) 14-400 mg-mcg Tab, Take [...] Procedure: SECTION; Surgeon: Holland Thomas MD; Location: [facility] [place]; Service: Family History Problem Relation Age of [...] Stroke Paternal Grandfather Visit Vitals ??? BP 120/80 ??? LMP 02/29/2016 (Exact Date) ??? Yes TT 40 min >50% college counselor and ed. Yulisa Mart CNM/IBCLC documented in this encounter Plan of Treatment Not on filedocumented as of this encounter Visit Diagnoses Not on filedocumented in this encounter Additional Health Concerns Assessment Noted Time PHQ-9 Depression Total Score: 19 09/04/2015 7:20 AM CD T documented as of this encounter Care Teams Hammer Shop Supervisor Relationship Specialty Start Date End Date No Ref-Primary, Physician PCP - General 07/27/15 04/14/20 Holland Thomas MD PCP - General warehouse incentive selector 04/15/[address] [address] Amarilys Friedman BINDERY TECHNICIAN Assigned PCP 06/05/21 [address] [place], [place] [id number] documented as of this encounter
--- OUTSIDE RECORDS SUMMARY | 2022-08-31 22:25 | XMS_ITS | Encounter Summary ---
:1990 Author Organization [place] [facility] Address [address] [place] [address] Care Team Providers Name Role Phone No Ref-Primary, Physician Primary Care Provider [phone] Holland Thomas MD Primary Care Provider [phone] Encounter Details Date Type Department Care Team Description 11/17/2016 Surgery - [facility] Maternity Care MD Ambrosio [address] [id number] [phone] Social History Tobacco Use Types Packs/Day Years [...] 79.4 kg (175 lb) 11/16/2016 5:10 AM SCHOOL OCCUPATIONAL THERAPIST Height 170.2 cm (5' 7) 11/16/2016 5:10 AM SCHOOL OCCUPATIONAL THERAPIST Body Mass Index 27.41 11/16/2016 5:10 AM SCHOOL OCCUPATIONAL THERAPIST documented in this encounter Plan of Treatment Not on filedocumented as of this encounter Visit Diagnoses Not on filedocumented in this encounter Additional Health Concerns Assessment Noted Time PHQ-9 Depression Total Score: 19 09/04/2015 7:20 AM CD T documented as of this encounter Care Teams Junior Architect Relationship Specialty Start Date End Date No Ref-Primary, Physician PCP - General 07/27/15 04/14/20 Holland Thomas MD PCP - General distillation operator helper 04/15/[address] [address] documented as of this encounter
--- OUTSIDE RECORDS SUMMARY | 2022-08-31 22:25 | XMS_ITS | Encounter Summary ---
:1990 Author Organization [place] Address [facility] [place] [address] Care Team Providers Name Role Phone No Ref-Primary, Physician Primary Care Provider [phone] Holland Thomas MD Primary Care Provider [phone] Encounter Details Date Type Department Care Team Description 11/21/2016 Home Care/Hospice - [facility] Zeenat Olson RN [facility] [address] [facility] [address] [place] [address] Social History Tobacco Use Types Packs/Day [...] documented as of this encounter Care Teams Hazmat Truck Driver Relationship Specialty Start Date End Date No Ref-Primary, Physician PCP - General 07/27/15 04/14/20 Holland Thomas MD PCP - General video rental clerk [facility]/15/[facility] [address] [facility] [address] [place], [place] [id number] documented as of this encounter
--- OUTSIDE RECORDS SUMMARY | 2022-08-31 22:25 | XMS_ITS | Encounter Summary ---
:1990 Author Organization [place] [facility] Address [address] [place] [address] Care Team Providers Name Role Phone No Ref-Primary, Physician Primary Care Provider [phone] Holland Thomas MD Primary Care Provider [phone] Encounter Details Date Type Department Care Team Description [facility]/17[facility] [address] Social History Tobacco Use Types Packs/Day Years Used Date Smoking Tobacco: Former Cigarettes 0.1 Smokeless Tobacco: Never Comments: smoking 10cig/day- down to 1-2 with Alcohol Use Standard Drinks/Week Comments No 0 (1 standard drink = 0.6 oz pure alcoho l) Sex Assigned at Date Recorded Not on file documented as of this encounter OR Notes Anesthesia Postprocedure Evaluation - Tyler Irene MD - 11/18/2016 7:20 AM CST Patient: Keyla Porter SECTION Anesthesia type: spinal Patient location: Labor and Delivery Last vitals: Vitals: 11/18/16 0229 BP: 119/62 Pulse: 95 Resp: 16 Temp: 36.5 ??C (97.7 ??F) SpO2: 98% Post vital signs: stable Level of consciousness: [...] NOT ASA# 13 - PACU Re-Intubation Rate: NA - No ETT / LMA used for case ASA# 10 - Composite Anes Safety: ASA10A - No serious adverse event ASA# 38 - New Corneal Injury: ASA38A - No new exposure keratitis or corneal abrasion in PACU Additional Notes: Pt. S/p SAB for . Satisfied with anesthetic care. Spinal resolving. Denies headache. Only complaint is of shoulder pain, likely referred from abdominal surgical procedure. No apparent complications. No follow up indicated. NG LAYER Anesthesia Procedure Notes - Historical Provider - 11/17/2016 9:39 PM LINING LAYER Spinal Block Patient location during procedure: OB Start time: 11/17/2016 9:32 PM End time: 11/17/2016 9:36 PM Reason for block: primary anesthetic Staffing: Performing Anesthesiologist: OMA NEVAREZ Preanesthetic Checklist Completed: patient identified, risks, benefits, and alternatives discussed, timeout performed, consent obtained, at patient's request, airway assessed, oxygen available, suction available, emergency drugs available and hand hygiene performed Spinal Block Patient position: sitting Prep: ChloraPrep Patient monitoring: blood pressure, continuous pulse ox and heart rate Location: L3-4 Injection technique: single-shot Needle type: Quincke Needle gauge: 24 G Anesthesia Preprocedure Evaluation - Historical Provider - 11/17/2016 8:36 PM CST Anesthesia Evaluation Patient summary reviewed No history of anesthetic complications Airway Mallampati: II Neck ROM: full Pulmonary - negative ROS and normal exam Cardiovascular - negative ROS and normal exam Rhythm: regular Rate: normal, Neuro/Psych - negative ROS Endo/Other (+) GI/Hepatic/Renal - negative ROS Dental - normal exam Chemistry Component Value Date/Time NA 135 (L) 06/27/2016 0650 K 3.8 06/27/2016 0650 CL 104 06/27/2016 0650 CO2 20 (L) 06/27/2016 0650 BUN 8 09/28/2016 0625 CREATININE 0.52 (L) 09/28/2016 0625 GLU 89 06/27/2016 0650 Component Value Date/Time CALCIUM 8.8 06/27/2016 0650 ALKPHOS 32 (L) 06/27/2016 0650 AST 11 09/28/2016 0625 ALT 8 09/28/2016 0625 BILITOT 0.4 06/27/2016 0650 Lab Results Component Value Date WBC 6.2 06/27/2016 HGB 10.3 (L) 10/01/2016 HCT 30.6 (L) 06/27/2016 MCV 91 06/27/2016 PLT 178 09/28/2016 Anesthesia Plan Planned anesthetic: spinal ASA 2 Anesthetic plan and risks discussed with: patient and spouse Post-op plan: routine recovery documented in this encounter Miscellaneous Notes Anesthesia Care Transfer Note - Raquel Neville - 11/17/2016 10:30 PM LINING LAYER Last vitals: Vitals: 11/17/16 2229 BP: 122/54 Pulse: 76 Resp: 20 Temp: 36.7 ??C (98.1 ??F) SpO2: 100% Patient's level of consciousness is drowsy Spontaneous [...] documented as of this encounter Care Teams Gear Room Keeper Relationship Specialty Start Date End Date No Ref-Primary, Physician PCP - General 07/27/15 04/14/20 Holland Thomas MD PCP - General air sealing technician 04/15/[address] [address] documented as of this encounter
--- OUTSIDE RECORDS SUMMARY | 2022-08-31 22:25 | XMS_ITS | Encounter Summary ---
:1990 Author Organization [facility] Address [address] [place] [address] Care Team Providers Name Role Phone No Ref-Primary, Physician Primary Care Provider [phone] Reason for Visit Reason Comments Abdominal Pain Encounter Details Date Type Department Care Team Description 04/16/[address] [facility] Chani Bethea MD Pelvic pain [facility] Emergency [address] Department [place] [id number] [address] [place] [address] [place] [address] [phone] Social History Tobacco Use Types Packs/Day Years [...] - Inhaled Oxygen Concentration - - Weight 63.5 kg (140 lb) 04/16/2017 1:15 PM CDT Height 170.2 cm (5' 7) 04/16/2017 1:15 PM CDT Body Mass Index 21.93 04/16/2017 1:15 PM CDT documented in this encounter Medications at Time of Discharge Medication Sig Dispensed Refills Start Date End Date Vit-Fe Take 1 tablet by 0 04/07/201603/2018 Fumarate-FA ( mouth daily COMPLETE) 14-0.4 MG TABS documented as of this encounter ED Notes Ramírez Bethea - 04/16/2017 1:43 PM CDT eMERGENCY dEPARTMENT eNCOUnter CHIEF COMPLAINT Chief Complaint Patient presents with ??? Abdominal Pain HPI Keyla Porter is a 26 y.o. female with a history of an IUD removal (11/13/16), (11/17/16), kidney stones, recurrent endometriosis, PID, and UTI, who presents with LLQ abdominal pain. Patient reports onset of LLQ abdominal pain this morning at 0200. She reports that the pain woke her up and describes it as a shooting pain that radiates down her left leg and to her left flank. She reportsthat this pain feels similar to pain she feels when she has endometriotic flare ups. She took ibuprofen and applied heat packs with minimal relief. She also endorses intense vaginal tenderness. Denies new vaginal bleeding or discharge, problems passing stools, dysuria, hematuria, urinary frequency, orurinary urgency. The creation of this record is based on the scribe???s observations of the work being performed by Ramírez Nova MD and the provider???s statements to them. It was created on his behalf by Neville Valera, a trained medical receptionist medical assistant. This document has been checked and approved [...] SECTION; Surgeon: Holland Thomas MD; [facility]: [facility]; Service: ??? COLPOSCOPY 2011 ??? ENDOMETRIAL ABLATION during one of the laparotomies ??? EXPLORATORY LAPAROTOMY 3x - last in 10/2015, 2010, Gyne surgeon in 2014 states no contraindication to vaginal per patient ??? IUD removal 11/13/2015 laproscopic procedure ??? WI LAP,FULGURATE/EXCISE LESIONS Right 03/25/2017 Procedure: LAPAROSCOPY, OVARIAN CYSTECTOMY; Surgeon: Holland Thomas MD; Location: [facility] Main OR; Service: Gynecology CURRENT MEDICATIONS Patient's Medications New Prescriptions TRAMADOL (ULTRAM) 50 MG TABLET Take 1 tablet (50 mg total) by mouth every 6 (six) hours as needed for pain. Previous Medications FERROUS SULFATE 325 (65 FE) MG TABLET Take 1 tablet by mouth once a week. On Wednesdays Modified Medications No medications on file Discontinued [...] Cardiovascular: Denies chest pain or palpitations GI: Endorses abdominal pain. Denies nausea, vomiting, or change in bowel or bladder habits Musculoskeletal: Denies any new muscle/joint pain. Skin: Denies rash Neurologic: Denies headache, focal weakness or sensory changes Psych: Mood and affect normal All systems negative except as marked. PHYSICAL EXAM VITAL SIGNS: BP 111/70 Pulse (!) 55 Temp 97.8 ??F (36.6 ??C) (Oral) Resp 18 Ht 5' 7 (1.702 m) Wt 140 lb (63.5 kg) SpO2 100% BMI 21.93 kg/m2 Constitutional: Awake, alert, in no apparent distress HENT: Normocephalic, Atraumatic, Bilateral external ears normal, Oropharynx moist, Nose normal. Neck- Normal range of motion, No tenderness, Supple, No stridor. Eyes: PERRL, EOMI, Conjunctiva normal, No discharge. Respiratory: Normal breath sounds, No respiratory distress, No wheezing Cardiovascular: Normal heart rate, Normal rhythm, No appreciable rubs or gallops. GI: LLQ tenderness. Soft, No distension, No palpable masses Gu: Patient deferred pelvic exam Musculoskeletal: Intact distal pulses, No edema. Good range of motion in all major joints. No tenderness to palpation or major deformities noted. Integument: Warm, Dry, No erythema, No rash. Well appearing, well healed surgical scar over the suprapubic region with no drainage or bleeding. Neurologic: Alert & oriented, Normal motor function, Normal sensory function, No focal deficits noted. Psychiatric: Affect normal, Judgment normal, Mood normal. RADIOLOGY Please see official radiology report. Us Pelvis With Transvaginal Non Ob Result Date: 04/16/2017 US PELVIS WITH TRANSVAGINAL NON OB 04/16/2017 2:44 PM INDICATION: pain, history of endometriosis TECHNIQUE: Transabdominal scans were performed. Endovaginal ultrasound was performed to better visualize the adnexa. COMPARISON: 03/16/2017 FINDINGS: Uterus measures 9.2 x 4.3 x 4.9 cm. A few benign nabothian cysts are seen in the cervix. Endometrial thickness is 12 mm. A few tiny foci of fluid is seen in the endometrial canal. Right ovary measures 4.3 x 2.1 x 1.9 cm. Normal right ovary. Normal arterial duplex. Left ovary measures 3.9 x 1.7 x 2.1 cm. Normal left ovary. Normal arterial duplex. A small amount of free fluid is seen in the pelvic cul-de-sac. CONCLUSION: 1. A few tiny round areas of fluid are seen in the endometrial cavity, of uncertain significance. They may be related to current bleeding. Clinical correlation is recommended. I have independently reviewed and interpreted the above imaging findings, pending the final radiology read. LABS Results for orders placed or performed during the hospital encounter of 04/16/17 Basic Metabolic Panel Result Value Ref Range Sodium 138 136 - 145 mmol/L Potassium 3.7 3.5 - 5.0 mmol/L Chloride 109 (H) 98 - 107 mmol/L CO2 26 22 - 31 mmol/L Anion Gap, Calculation 3 (L) 5 - 18 mmol/L Glucose 88 70 - 125 mg/dL Calcium 9.1 8.5 - 10.5 mg/dL BUN 12 8 - 22 mg/dL Creatinine 0.74 0.60 - 1.10 mg/dL GFR MDRD Af Amer >60 >60 mL/min/1.73m2 GFR MDRD Non Af Amer >60 >60 mL/min/1.73m2 HM2 (CBC W/O DIFF) Result Value Ref Range WBC 4.4 4.0 - 11.0 thou/uL RBC 3.79 (L) 3.80 - 5.40 mill/uL Hemoglobin 11.2 (L) 12.0 - 16.0 g/dL Hematocrit 32.7 (L) 35.0 - 47.0 % MCV 86 80 - 100 fL MCH 29.6 27.0 - 34.0 pg MCHC 34.3 32.0 - 36.0 g/dL RDW 14.2 11.0 - 14.5 % Platelets 211 140 - 440 thou/uL MPV 10.1 8.5 - 12.5 fL HCG, Qual Result Value Ref Range Beta hCG Qualitative Negative Negative ED COURSE & MEDICAL DECISION MAKING Again, the patient is a 26 y.o. female who presents with acute, moderate pelvic pain. The patient appears nontoxic with stable vital signs. Overall, the patient has a benign physical exam. Patient had recent right ovarian cystectomy on April 03, [address] Enriquez. Surgical site appears very clean, dry and intact, nothing to suggest surgical site infection. Patient does have a history of endometriosis with similar symptoms. Concern for flare of this, consider but lower suspicion for ectopic, miscarriage, cysts, torsion. Patient denies any vaginal bleeding or discharge, nothing to suggest PID or STI. We will obtain screening labs and ultrasound imaging. Patient deferred pelvic exam. She has had no urinary symptoms, no indication for urinalysis. Patient was given oxycodone for her pain. Pertinent Labs & Imaging studies reviewed. (See chart for details) Reassessment: The testing is negative, laboratory studies showed no acute concerning findings, ultrasound imaging reported no acute concerning findings. Repeat exam is benign the patient feels improvedhere. Because all these findings with the patient overall felt very reassured. Given benign exam, well appearance and negative workup, feel she is safe for discharge and close follow-up. Will recommendibuprofen but also sent home with a very short course of tramadol as needed for pain. Recommend thatshe follows up with her primary DEVELOPMENT ARCHITECT provider in the next 3-4 days. Return precautions provided. All questions were answered and reasons to return were again discussed. Patient felt comfortable with this plan and the patient was discharged in stable condition. FINAL IMPRESSION 1. Pelvic pain New Prescriptions TRAMADOL (ULTRAM) 50 MG TABLET Take 1 tablet (50 mg total) by mouth every 6 (six) hours as needed for pain. I, Ramírez Nova MD personally performed the services described in this documentation, as scribed by Neville Valera in my presence, and it is both accurate and complete. Ramírez Bethea MD 04/16/17 1544 documented in this encounter Plan of Treatment Not on filedocumented as of this encounter Procedures Procedure Name Priority Date/Time Associated Comments Diagnosis US PELVIC Routine 04/16/2017 2:44 PM Results f or this TRANSABDOMINAL AND CDT procedure are in TRANSVAGINAL the results section. documented in this encounter Results US Pelvic Complete with Transvaginal (04/16/2017 2:44 PM CDT) Anatomical Region Laterality Modality Abdomen/Pelvis Other Specimen (Source) Anatomical Location Collection Method / Collectio n Time Received Time / Laterality Volume Impressions 04/16/2017 2:51 PM CDT CONCLUSION: 1. ??A few tiny round areas of fluid are seen in the endometrial cavity, of uncertain significance. They may be related to current bleeding. Clinical correlation is recommended. Narrative 04/16/2017 2:51 PM CDT US PELVIS WITH TRANSVAGINAL NON OB 04/16/2017 2:44 PM INDICATION: pain, history of endometrios is TECHNIQUE: Transabdominal scans were per formed. Endovaginal ultrasound was performed to better visualize the adnexa. COMPARISON: 03/16/2017 FINDINGS: Uterus measures 9.2 x 4.3 x 4.9 cm. A fe w benign nabothian cysts are seen in the cervix. Endometrial thickness is 12 mm. A few ti ny foci of fluid is seen in the endometrial canal. Right ovary measures 4.3 x 2.1 x 1.9 cm. Normal right ovary. Normal arterial duplex. Left ovary measures 3.9 x 1.7 x 2.1 cm. Normal left ovary. Normal arterial duplex. A small amount of free fluid is seen in the pelvic cul-de-sac. Procedure Note Shelley Figueroa MD - 1 US PELVIS WITH TRANSVAGINAL NON OB 04/16/2017 2:44 PM INDICATION: pain, history of endometrios is TECHNIQUE: Transabdominal scans were per formed. Endovaginal ultrasound was performed to better visualize the adnexa. COMPARISON: 03/16/2017 FINDINGS: Uterus measures 9.2 x 4.3 x 4.9 cm. A fe w benign nabothian cysts are seen in the cervix. Endometrial thickness is 12 mm. A few ti ny foci of fluid is seen in the endometrial canal. Right ovary measures 4.3 x 2.1 x 1.9 cm. Normal right ovary. Normal arterial duplex. Left ovary measures 3.9 x 1.7 x 2.1 cm. Normal left ovary. Normal arterial duplex. A small amount of free fluid is seen in the pelvic cul-de-sac. IMPRESSION: CONCLUSION: 1. A few tiny round areas of fluid are s een in the endometrial cavity, of uncertain significance. They may be related to current bleeding. Clinical correlation is recommended. Ramírez Bethea MD IM US ORDERABLES documented in this encounter Visit Diagnoses Diagnosis Pelvic pain Unspecified symptom associated with fema le genital organs documented in this encounter Additional Health Concerns Assessment Noted Time PHQ-9 Depression Total Score: 19 09/04/2015 7:20 AM CD T documented as of this encounter Care Teams Marine Erector Relationship Specialty Start Date End Date No Ref-Primary, Physician PCP - General 07/27/15 04/14/20 documented as of this encounter
--- OUTSIDE RECORDS SUMMARY | 2022-08-31 22:25 | XMS_ITS | Encounter Summary ---
:1990 Author Organization [place] Address [address] [place] [address] Care Team Providers Name Role Phone No Ref-Primary, Physician Primary Care Provider [phone] Holland Thomas MD Primary Care Provider [phone] Encounter Details Date Type Department Care Team Description 11/27/2016 [facility] Provider, [address] [address] Social History Tobacco Use Types [...] documented as of this encounter Care Teams Sales Planning Coordinator Relationship Specialty Start Date End Date No Ref-Primary, Physician PCP - General 07/27/15 04/14/20 Holland Thomas MD PCP - General clay worker 04/15/[address] [place] [address] documented as of this encounter
--- OUTSIDE RECORDS SUMMARY | 2022-08-31 22:25 | XMS_ITS | Encounter Summary ---
:1990 Author Organization [facility] Address [address] [place] [id number] Care Team Providers Name Role Phone No Ref-Primary, Physician Primary Care Provider Reason for Visit Reason Comments Post-op Problem Encounter Details Date Type Department Care Team Description 02/06/2017 - [facility], Jennifer dove IUD, 02/07/[address] [facility] [address] [facility] Emergency Room [address] [place] [address] [phone] Social History Tobacco Use Types Packs/Day Years [...] - - Weight 63.5 kg (140 lb) 02/06/2017 7:23 PM CDT Height 170.2 cm (5' 7) 02/06/2017 7:23 PM CDT Body Mass Index 21.93 02/06/2017 7:23 PM CDT documented in this encounter Medications at Time of Discharge Medication Sig Dispensed Refills Start Date End Date Vit-Fe Take 1 tablet by 0 04/07/201603/2018 Fumarate-FA ( mouth daily COMPLETE) 14-0.4 MG TABS documented as of this encounter ED Notes Historical Provider - 02/06/2017 8:47 PM CDT eMERGENCY dEPARTMENT eNCOUnter CHIEF COMPLAINT Chief Complaint Patient presents with ??? Post-op Problem HPI Keyla Porter is a 26 y.o. female who presents to the emergency department for evaluation of a post-op problem. The patient is 2.5 months S/P . She is also 1 month S/P IUD placement. Yesterday, she states she developed a sharp pain to the left-side of the incision site after rolling onto her stomach, which resolved after 15 minutes. She also notes ???pinkish?? vaginal discharge since yesterday. Today, she states she developed a gradual onset of pain to the right side of her incision. Concerned with her symptoms, she presents to the ED for evaluation. Currently in the ED, the patient reports ???tearing?? right- sided incisional pain that she rates 8/10 in severity. She denies any pain radiation. Movement provokes her pain. She denies any palliating factors. She denies vomiting or diarrhea. The creation of this record is based on the scribe???s observations of the work being performed by Néstor Bragg MD and the provider???s statements to them. It was created on his behalf by Yadi Trinidad, a trained ophthalmic medical technician. This document has been checked and approved by the attending provider. PAST MEDICAL HISTORY Past Surgical History: Procedure Laterality Date ??? SECTION N/A 11/17/2016 Procedure: SECTION; Surgeon: Holland Thomas MD; Location: [facility]; Service: ??? COLPOSCOPY 2011 ??? ENDOMETRIAL ABLATION [...] file Social History Narrative REVIEW OF SYSTEMS Review of Systems Constitutional: Positive for chills. Negative for fever. HENT: Negative for sore throat. Eyes: Negative for visual disturbance. Respiratory: Negative for shortness of breath. Cardiovascular: Negative for chest pain. Gastrointestinal: Positive for abdominal pain. Genitourinary: Negative for dysuria and hematuria. Musculoskeletal: Negative for myalgias. Neurological: Negative for numbness. Hematological: Does not bruise/bleed easily. PHYSICAL EXAM VITAL SIGNS: Visit Vitals ??? BP 116/73 (Patient Position: Lying) ??? Pulse 65 ??? Temp 97.9 ??F (36.6 ??C) (Oral) ??? Resp 16 ??? Ht 5' 7 (1.702 m) ??? Wt 140 lb (63.5 kg) ??? LMP 01/14/2017 (Exact Date) ??? SpO2 100% ??? BMI 21.93 kg/m2 Physical Exam Constitutional: She appears well-developed [...] distension and no mass. There is tenderness (Suprapubic). Low transverse scar appropriately healing with no surrounding erythema, no dehiscence. Musculoskeletal: She exhibits no edema, tenderness or deformity. Neurological: She is alert. No cranial nerve deficit. Skin: Skin is warm and dry. Psychiatric: She has a normal mood and affect. Her behavior is normal. Nursing note and vitals reviewed. LABS Pertinent lab results reviewed in chart. Recent Results (from the past 48 hour(s)) Urinalysis-UC if Indicated Collection Time: 02/06/17 9:47 PM Result Value Ref Range Color, UA Yellow Colorless, Yellow, Straw, Light Yellow Clarity, UA Clear Clear Glucose, UA Negative Negative Bilirubin, UA Negative Negative Ketones, UA 25 mg/dL (!) Negative Specific Hamlin, UA 1.020 1.001 - 1.030 Blood, UA Negative Negative pH, UA 6.0 4.5 - 8.0 Protein, UA Negative Negative mg/dL Urobilinogen, UA <2.0 E.U./dL <2.0 E.U./dL, 2.0 E.U./dL Nitrite, UA Negative Negative Leukocytes, UA Negative Negative Comprehensive Metabolic Panel Collection Time: 02/06/17 9:55 PM Result Value Ref Range Sodium 137 136 - 145 mmol/L Potassium 3.6 3.5 - 5.0 mmol/L Chloride 106 98 - 107 mmol/L CO2 23 22 - 31 mmol/L Anion Gap, Calculation 8 5 - 18 mmol/L Glucose 84 70 - 125 mg/dL BUN 12 8 - 22 mg/dL Creatinine 0.78 0.60 - 1.10 mg/dL GFR MDRD Af Amer >60 >60 mL/min/1.73m2 GFR MDRD Non Af Amer >60 >60 mL/min/1.73m2 Bilirubin, Total 0.3 0.0 - 1.0 mg/dL Calcium 9.2 8.5 - 10.5 mg/dL Protein, Total 8.2 (H) 6.0 - 8.0 g/dL Albumin 4.1 3.5 - 5.0 g/dL Alkaline Phosphatase 43 (L) 45 - 120 U/L AST 20 0 - 40 U/L ALT 20 0 - 45 U/L Lipase Collection Time: 02/06/17 9:55 PM Result Value Ref Range Lipase 10 0 - 52 U/L Magnesium Collection Time: 02/06/17 9:55 PM Result Value Ref Range Magnesium 1.9 1.8 - 2.6 mg/dL APTT(PTT) Collection Time: 02/06/17 9:55 PM Result Value Ref Range PTT 30 24 - 37 seconds INR Collection Time: 02/06/17 9:55 PM Result Value Ref Range INR 1.10 0.90 - 1.10 Beta-hCG, Qualitative, Serum Collection Time: 02/06/17 9:55 PM Result Value Ref Range Beta hCG Qualitative Negative Negative HM1 (CBC with Diff) Collection Time: 02/06/17 9:55 PM Result Value Ref Range WBC 5.4 4.0 - 11.0 thou/uL RBC 3.93 3.80 - 5.40 mill/uL Hemoglobin 11.4 (L) 12.0 - 16.0 g/dL Hematocrit 34.1 (L) 35.0 - 47.0 % MCV 87 80 - 100 fL MCH 28.9 27.0 - 34.0 pg MCHC 33.4 32.0 - 36.0 g/dL RDW 14.6 (H) 11.0 - 14.5 % Platelets 231 140 - 440 thou/uL MPV 8.4 7.0 - 10.0 fL Neutrophils % 49 (L) 50 - 70 % Lymphocytes % 41 (H) 20 - 40 % Monocytes % 8 2 - 10 % Eosinophils % 1 0 - 6 % Basophils % 1 0 - 2 % Neutrophils Absolute 2.7 2.0 - 7.7 thou/uL Lymphocytes Absolute 2.2 0.8 - 4.4 thou/uL Monocytes Absolute 0.4 0.0 - 0.9 thou/uL Eosinophils Absolute 0.1 0.0 - 0.4 thou/uL Basophils Absolute 0.0 0.0 - 0.2 thou/uL EKG RADIOLOGY Us Pelvis With Transvaginal Non Ob Result Date: 02/07/2017 US PELVIS WITH TRANSVAGINAL NON OB 02/06/2017 11:06 PM INDICATION: POSSIBLE CSECTION WOUND DEHISCENCETECHNIQUE: Transabdominal scans were performed. Endovaginal ultrasound was performed to better visualize the adnexa. COMPARISON: CT 02/06/2017 FINDINGS: Uterus measures 9 x 6.6 x 4.5 cm. IUD is abnormally positioned. It is not entirely in the endometrial cavity. This is better seen on CT where it is high in position with the left limb exiting the uterus. Endometrial thickness 5 mm. Right ovary measures 3.2 x 2.4 x 2.4 cm. Left ovary measures 2.9 x 1.8 x 1.6 cm. Flow is documented to the ovaries. No significant free fluid. CONCLUSION: 1. Malpositioned IUD Ct Abdomen Pelvis Without Oral With Iv Contrast Result Date: 02/06/2017 CT ABDOMEN PELVIS WO ORAL W IV CONTRAST 02/06/2017 11:13 PM INDICATION: Abdominal pain. Pelvic pain. TECHNIQUE: CT abdomen and pelvis. Multiplanar reformation images (MPR). Dose reduction techniques were used. IV CONTRAST: Iohexol (Omni) 100 mL COMPARISON: Pelvic ultrasound 02/06/2017 FINDINGS: LUNG BASES: Clear. ABDOMEN: Subcentimeter hepatic hypodensities which are small for characterization. The spleen, pancreas, adrenals and kidneys are within normal limits. Bowel is normal in caliber. PELVIS: IUD is malpositioned. It has an oblique orientation relative to the endometrial cavity, is high in location and is not entirely within the endometrial cavity. On sagittal images 55-62 majority of the IUD can be seen within the posterior myometrium of the upper uterus with the left limb either subserosal or external to the uterus. Trace amount of pelvic free fluid. MUSCULOSKELETAL: Normal appendix. CONCLUSION: 1. IUD is malpositioned. 2. Trace amount of pelvic free fluid. PROCEDURES TELEPHONE CONSULTS 9:05 PM: Consult with OFFICE MANAGER (Dr. Nath) - Advises imaging, CT or ultrasound ED MEDS Medications HYDROmorphone injection 1 mg (DILAUDID) (1 mg Subcutaneous Given 02/06/172058) sodium chloride 0.9% 1,000 mL (0 mL Intravenous Stopped 02/06/172323) iohexol 350 mg iodine/mL injection 100 mL (OMNIPAQUE) (100 mL Intravenous Given 02/06/17 2314) ketorolac injection 30 mg (TORADOL) (30 mg Intravenous Given 02/06/17 832) ondansetron injection 4 mg (ZOFRAN) (4 mg Intravenous Given 02/07/17 0005) ED COURSE & MEDICAL DECISION MAKING This is a 26-year-old female approximately 2.5 months status post who presents to the emergency department with pain near her incision concerning to her that it is opening on the inside. Examination shows a properly healing incision, suprapubic tenderness, otherwise unremarkable. She is afebrile and not hypoxic. Differential includes musculoskeletal pain, intra-abdominal infection, electrolyte imbalance CT abdomen and pelvis with malpositioned IUD Pelvic ultrasound with malpositioned IUD HCG negative UA negative for infection WBC 5.4, normal Remainder laboratory studies unremarkable On reevaluation by me patient appears comfortable. She states she can follow-up with her ObGyn doctor tomorrow. She is stable for discharge home with symptom treatment, gynecology management of malpositioned IUD. She is agreeable to treatment plan. IMPRESSION 1. Malpositioned IUD, initial encounter DISCHARGE MEDICATIONS Discharge Medication List as of 02/07/2017 12:26 AM START taking these medications Details metoclopramide (REGLAN) 10 MG tablet Take 1 tablet (10 mg total) by mouth 2 (two) times a day as needed for nausea., Starting 02/07/2017, Until Marizol 02/17/17, Print This is an accurate record of my words and actions during this visit as documented by the scribe. Néstor Bragg MD 02/07/17 0357 documented in this encounter Plan of Treatment Not on filedocumented as of this encounter Procedures Procedure Name Priority Date/Time Associated Comments Diagnosis CT ABDOMEN PELVIS W Routine 02/06/2017 11:13 Resu lts for this CONTRAST PM CDT procedure are i n the results section. US PELVIC Routine 02/06/2017 11:06 Results for this TRANSABDOMINAL AND PM CDT procedure are in TRANSVAGINAL the results section. documented in this encounter Results CT Abdomen Pelvis w Contrast (02/06/2017 11:13 PM CDT) Anatomical Region Laterality Modality Abdomen/Pelvis, SUBRAD CT BODY, UMP CT ABDOMEN PELVIS, Computed Tomography RAD CT Specimen (Source) Anatomical Location Collection Method / Collectio n Time Received Time / Laterality Volume Impressions 02/06/2017 11:33 PM CDT CONCLUSION: 1. ??IUD is malpositioned. 2. ??Trace amount of pelvic free fluid. Narrative 02/06/2017 11:[address] ABDOMEN PELVIS WO ORAL W IV CONTRAST 02/06/2017 11:13 PM ? INDICATION: Abdominal pain. Pelvic pain. TECHNIQUE: CT abdomen and pelvis. Multip lanar reformation images (MPR). Dose reduction techniques were used. IV CONTRAST: Iohexol (Omni) 100 mL COMPARISON: Pelvic ultrasound 02/06/2017 FINDINGS: LUNG BASES: Clear. ABDOMEN: Subcentimeter hepatic hypodensi ties which are small for characterization. The spleen, pancreas, adrenals and kidneys are within normal limits. Bowel is normal in caliber. PELVIS: IUD is malpositioned. It has an oblique orientation relative to the endometrial cavity, is high in location and is not entirely within the endometrial cavity. On sagittal images 55-62 majority of the IUD can be seen within the posterior myometrium of the upper uterus with the left limb either subserosal or external to the uterus. Trace amount of pelvic free fluid. MUSCULOSKELETAL: Normal appendix. Procedure Note Rosie Abarca MD, MD - 05/2021 CT ABDOMEN PELVIS WO ORAL W IV CONTRAST 02/06/2017 11:13 PM INDICATION: Abdominal pain. Pelvic pain. TECHNIQUE: CT abdomen and pelvis. Multip lanar reformation images (MPR). Dose reduction techniques were used. IV CONTRAST: Iohexol (Omni) 100 mL COMPARISON: Pelvic ultrasound 02/06/2017 FINDINGS: LUNG BASES: Clear. ABDOMEN: Subcentimeter hepatic hypodensi ties which are small for characterization. The spleen, pancreas, adrenals and kidneys are within normal limits. Bowel is normal in caliber. PELVIS: IUD is malpositioned. It has an oblique orientation relative to the endometrial cavity, is high in location and is not entirely within the endometrial cavity. On sagittal images 55-62 majority of the IUD can be seen within the posterior myometrium of the upper uterus with the left limb either subserosal or external to the uterus. Trace amount of pelvic free fluid. MUSCULOSKELETAL: Normal appendix. IMPRESSION: CONCLUSION: 1. IUD is malpositioned. 2. Trace amount of pelvic free fluid. Historical Provider IMG CT ORDERABLES US Pelvic Complete with Transvaginal (02/06/2017 11:06 PM CDT) Anatomical Region Laterality Modality Abdomen/Pelvis Other Specimen (Source) Anatomical Location Collection Method / Collectio n Time Received Time / Laterality Volume Impressions 02/07/2017 12:01 AM CDT CONCLUSION: 1. ??Malpositioned IUD Narrative 02/07/2017 12:01 AM CDT US PELVIS WITH TRANSVAGINAL NON OB 02/06/2017 11:06 PM INDICATION: POSSIBLE CSECTION WOUND DEHI SCENCE TECHNIQUE: Transabdominal scans were per formed. Endovaginal ultrasound was performed to better visualize the adnexa. COMPARISON: CT 02/06/2017 FINDINGS: Uterus measures 9 x 6.6 x 4.5 cm. IUD is abnormally positioned. It is not entirely in the endometrial cavity. This is better seen on CT where it is high in position with the left limb exiting the uterus. Endometrial thickness 5 mm. Right ovary measures 3.2 x 2.4 x 2.4 cm. ? Left ovary measures 2.9 x 1.8 x 1.6 cm. ? Flow is documented to the ovaries. No si gnificant free fluid. Procedure Note Rosie Abarca MD, MD - 05/2021 US PELVIS WITH TRANSVAGINAL NON OB 02/06/2017 11:06 PM INDICATION: POSSIBLE CSECTION WOUND DEHI SCENCE TECHNIQUE: Transabdominal scans were per formed. Endovaginal ultrasound was performed to better visualize the adnexa. COMPARISON: CT 02/06/2017 FINDINGS: Uterus measures 9 x 6.6 x 4.5 cm. IUD is abnormally positioned. It is not entirely in the endometrial cavity. This is better seen on CT where it is high in position with the left limb exiting the uterus. Endometrial thickness 5 mm. Right ovary measures 3.2 x 2.4 x 2.4 cm. Left ovary measures 2.9 x 1.8 x 1.6 cm. Flow is documented to the ovaries. No si gnificant free fluid. IMPRESSION: CONCLUSION: 1. Malpositioned IUD Historical Provider IMG US ORDERABLES documented in this encounter Visit Diagnoses Diagnosis Malpositioned IUD, initial encounter documented in this encounter Additional Health Concerns Assessment Noted Time PHQ-9 Depression Total Score: 19 09/04/2015 7:20 AM CD T documented as of this encounter Care Teams Social Science Research Assistant Relationship Specialty Start Date End Date No Ref-Primary, Physician PCP - General 07/27/15 04/14/20 documented as of this encounter
--- OUTSIDE RECORDS SUMMARY | 2022-08-31 22:26 | XMS_ITS | Encounter Summary ---
:1990 Author Organization [facility] Address [address] [place] [address] Care Team Providers Name Role Phone No Ref-Primary, Physician Primary Care Provider [phone] Holland Thomas MD Primary Care Provider [phone] Reason for Visit Reason Comments Care 24w 6d Encounter Details Date Type Department Care Team Description 08/27/2016 Office [facility] Libertad Contreras Enco unter for supervision of other normal , second trimester; Visit - [facility] WATCH PARTS GRINDER CNM Vaginal discharge during [facility] [address] [facility] [id number] [place] [address] [phone] (Work) [phone] Social History Tobacco Use Types Packs/Day Years [...] - Inhaled Oxygen Concentration - - Weight 71.4 kg (157 lb 8 oz) 08/27/2016 11:04 AM CDT Height 170.8 cm (5' 7.25) 08/27/2016 11:04 AM CDT Body Mass Index 24.48 08/27/2016 11:04 AM CDT documented in this encounter Progress Notes Libertad Contreras, AMINA - 08/27/2016 11:10 AM CDT Keyla Porter is here with FOB for a routine visit at 24w6d. She has c/o bilateral arm weakness, SOB and rapid heartrate. These symptoms have occurred simultaneously 4-5 times in the last week and a half. She notices the symptoms in the evening when sitting downand relaxed. Symptoms appear suddenly and last for ~ 10-30 minutes. She does not know what brings onthe symptoms. She has never experienced the symptoms before and notes that the increased heart rate/SOB is not similar to panic attacks that she has had in the past. She describes the arm numbness as occurring between her bicep and forearm, sometimes her fingers tingle, she finds it hard to lift her arms when the numbness is present. 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 She currently not experiencing these symptoms and has full ROM at this time. Recommend follow up with her PCP ALESIA (early next week). However, if symptoms return between now and herappointment, she should present to the ED. She verbalizes understanding. She also notes itching of her legs. She scratches them so much that she has bruised her legs. She adds that she has always bruised easily and that the bruises are consistent with how hard she has been scratching. Discussed checking platelets today, she prefers not to as they were drawn in June and this bruising is not unusual for her. There is no rash present on her legs. She has tried lotion with no relief. Recommended trying Benadryl PRN. She has complaints of vaginal discharge with odor. Wet prep obtained today. Milky, white discharge noted at introitus. 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 Discussed comfort measures. She is feeling movement regularly. Denies vaginal bleeding/loss of fluid. Appetite is normal. Interval weight gain is appropriate. Reviewed weight gain chart with patient. Discussed 28 week labs/screening for gestational diabetes, anemia,syphillis, are recommended at her next visit. Handouts given on glucose testing, and TdaP during . Anticipatory guidance, warning signs,when to call and CNM contact information reviewed. Received flu vaccine today. RTC in 4 weeks documented in this encounter Plan of Treatment Not on filedocumented as of this encounter Visit Diagnoses Diagnosis Encounter for supervision of other filiberto leblanc , second trimester Vaginal discharge during documented in this encounter Additional Health Concerns Assessment Noted Time PHQ-9 Depression Total Score: 19 09/04/2015 7:20 AM CD T documented as of this encounter Care Teams Mutuel Department Manager Relationship Specialty Start Date End Date No Ref-Primary, Physician PCP - General 07/27/15 04/14/20 Holland Thomas MD PCP - General cardiovascular invasive specialist 04/15/[address] [address] documented as of this encounter
--- OUTSIDE RECORDS SUMMARY | 2022-08-31 22:26 | XMS_ITS | Encounter Summary ---
:1990 Author Organization [place] Address [facility] [place] [address] Care Team Providers Name Role Phone No Ref-Primary, Physician Primary Care Provider [phone] Encounter Details Date Type Department Care Team Description 04/30/2016 Radiant Appointment [facility] Pelvic pain in female AND SURGERY [facility] [address] [place] [address] Social History Tobacco Use Types Packs/Day Years [...] Priority Date/Time Associated Comments Diagnosis US OB TRANSVAGINAL Routine 04/30/2016 2:53 PM Pelvic pain in R esults for this ONLY CDT female procedure are i n the results section. documented in this encounter Results US OB Transvaginal Only (04/30/2016 2:53 PM CDT) Anatomical Region Laterality Modality Abdomen/Pelvis Computed Radiography Specimen (Source) Anatomical Location Collection Method / Collectio n Time Received Time / Laterality Volume Narrative 04/30/2016 3:11 PM CDT US OB Transvaginal Only Order #: [id number] Study Notes? Alvin Leal on 04/30/2016 ??2:5 6 PM ?? ULTRASOUND - EARLY OB (0-11 WEEKS) Referring Provider: SONALI DEVRIES Clinic: [facility] PREVENTION OFFICER [facility] ORTHOTIST/PROSTHETIST NARRATIVE: Uterus contains a single central gestati onal sac with one yolk sac and one embryo with a normal amount of amniotic fluid. CRL: 14.5mm (7wks/6days lmp). FHR: 162 bpm. No IU hematoma or fi broid. Left and right ovaries and luzmaria-adnexae appear normal. No pelvic cy st, mass or free fluid. Type of ultrasound performed: OB TRANSVA GINAL ONLY ? Discussed here Sonali Devries CLINIC OFFICE ASSISTANT AUTHORIZATION SPECIALIST IMG US ORDERABLES documented in this encounter Visit Diagnoses Diagnosis Pelvic pain in female Unspecified symptom associated with fema le genital organs documented in this encounter Additional Health Concerns Assessment Noted Time PHQ-9 Depression Total Score: 19 09/04/2015 7:20 AM CD T documented as of this encounter Care Teams Principal Product Manager Relationship Specialty Start Date End Date No Ref-Primary, Physician PCP - General 07/27/15 04/14/20 documented as of this encounter
--- OUTSIDE RECORDS SUMMARY | 2022-08-31 22:26 | XMS_ITS | Encounter Summary ---
:1990 Author Organization [place] Address [address] [place] [address] Care Team Providers Name Role Phone No Ref-Primary, Physician Primary Care Provider [phone] Holland Thomas MD Primary Care Provider [phone] Encounter Details Date Type Department Care Team Description 04/30/2016 Records - [facility] CONVERSION Provider, Emilie leblanc Social History Tobacco Use Types Packs/Day Years [...] Priority Date/Time Associated Diagnosis Comme nts US IMAGING - HIM SCAN 08/02/2016 documented in this encounter Results US IMAGING - HIM SCAN (08/02/2016) Anatomical Region Laterality Modality Other Specimen (Source) Anatomical Location Collection Method / Collectio n Time Received Time / Laterality Volume Narrative This result has an attachment that is no t available. Historical Provider IMG US ORDERABLES documented in this encounter Visit Diagnoses Not on filedocumented in this encounter Additional Health Concerns Assessment Noted Time PHQ-9 Depression Total Score: 19 09/04/2015 7:20 AM CD T documented as of this encounter Care Teams Environmental Emergencies Assistant Relationship Specialty Start Date End Date No Ref-Primary, Physician PCP - General 07/27/15 04/14/20 Holland Thomas MD PCP - General extension service specialist 04/15/[address] [place] [address] documented as of this encounter
--- OUTSIDE RECORDS SUMMARY | 2022-08-31 22:26 | XMS_ITS | Encounter Summary ---
:1990 Author Organization [place] Address [facility] [place] [address] Care Team Providers Name Role Phone No Ref-Primary, Physician Primary Care Provider [phone] Reason for Visit Reason Comments RECHECK review ultrasound Encounter Details Date Type Department Care Team Description 04/12/2016 Office Visit [facility] Orion Puente, In[place] egnancy examination AND SURGERY CINDI WAYNE or test, positive SERVICE CENTER REPRESENTATIVE [address] result (Primary Dx) [address] [place] [address] [place] [id number] Social History Tobacco Use Types Packs/Day Years [...] Sign Reading Time Taken Comments Blood Pressure 110/60 04/12/2016 2:51 PM CDT Pulse - - Temperature - - Respiratory Rate - - Oxygen Saturation - - Inhaled Oxygen Concentration - - Weight 64 kg (141 lb) 04/12/2016 2:51 PM CDT Height 170.2 cm (5' 7) 04/12/2016 2:51 PM CDT Body Mass Index 22.08 04/12/2016 2:51 PM CDT documented in this encounter Progress Notes Orion Puente MD - 04/12/2016 3:34 PM CDT The patient is seen in follow-up today for an early . She had been seen in the emergency room and had a hCG level in the 800 range. This was followed up in 48 hours later with a value above 1500. She has had no pain and no bleeding. She had a mild right flank muscle cramp that went away with Tylenol. Ultrasound today shows a early intrauterine and although heart tones could not be identified they felt it was just early. The patient is counseled to continue to monitor this clinical situation and report any increased pain or bleeding. We will see her back in 2 weeks for repeat ultrasound and then transfer her care to her principal systems architect at the [facility]. The majority of the visi t was concerning review of her clinical findings the ultrasound and counseling as to activity level and future issues that may come up in the next 2 weeks. documented in this encounter Nursing Notes Haydee Pozo - 04/12/2016 2:51 PM CDT Chief Complaint Patient presents with ??? RECHECK review ultrasound Initial BP 110/60 mmHg Ht 5' 7 (1.702 m) Wt 141 lb (63.957 kg) BMI 22.08 kg/m2 LMP 02/29/2016 (Exact Date) ? No Estimated body mass index is 22.08 kg/(m^2) as calculated from the following: Height as of this encounter: 5' 7 (1.702 m). Weight as of this encounter: 141 lb (63.957 kg). BP completed using cuff size: carla Pozo MA 04/12/2016 documented in this encounter Plan of Treatment Not on filedocumented as of this encounter Visit Diagnoses Diagnosis examination or test, positive result - Primary documented in this encounter Additional Health Concerns Assessment Noted Time PHQ-9 Depression Total Score: 19 09/04/2015 7:20 AM CD T documented as of this encounter Care Teams Forensic Manager Relationship Specialty Start Date End Date No Ref-Primary, Physician PCP - General 07/27/15 04/14/20 documented as of this encounter
--- OUTSIDE RECORDS SUMMARY | 2022-08-31 22:26 | XMS_ITS | Encounter Summary ---
:1990 Author Organization [place] Address [address] [place] [id number] Care Team Providers Name Role Phone No Ref-Primary, Physician Primary Care Provider Holland Thomas MD Primary Care Provider [phone] Encounter Details Date Type Department Care Team Description 04/12/2016 Records - [facility] CONVERSION Provider, Emilie [...] documented as of this encounter Care Teams Strategic Sourcing Manager Relationship Specialty Start Date End Date No Ref-Primary, Physician PCP - General 07/27/15 04/14/20 Holland Thomas MD PCP - General manager transition 04/15/[address] [place] [address] documented as of this encounter
--- OUTSIDE RECORDS SUMMARY | 2022-08-31 22:26 | XMS_ITS | Encounter Summary ---
:1990 Author Organization [place] Address [facility] [place] [address] Care Team Providers Name Role Phone No Ref-Primary, Physician Primary Care Provider [phone] Encounter Details Date Type Department Care Team Description 10/31/2015 Radiant Appointment Orion Martinez Intrau terine device GYNECOLOGY AND MMD surveillance SURGERY [place] [address] [place] [address] [address] [place], [place] (Work) [phone] Social History Tobacco Use Types Packs/Day [...] Priority Date/Time Associated Diagnosis Comme nts US TRANSVAGINAL Routine 10/31/2015 2:50 PM Intrauterine device Results for this PELVIC NON-OB ART GALLERY DIRECTOR surveillance procedure are in the results section. documented in this encounter Results US Transvaginal Non OB (10/31/2015 2:50 PM ART GALLERY DIRECTOR) Anatomical Region Laterality Modality Abdomen/Pelvis Computed Radiography Specimen (Source) Anatomical Location Collection Method / Collectio n Time Received Time / Laterality Volume Narrative 10/31/2015 3:12 PM ART GALLERY DIRECTOR US Transvaginal Non OB Order #: [id number] Study Notes ? Alvin Leal on 10/31/2015 2:55 P M ULTRASOUND - [facility] RETAIL PHARMACY MANAGER Referring MD: DR FREITAS Primary Clinic: [facility] [place] TECHNICAL AID NARRATIVE: Uterus appears normal in size and conten ts. Endometrium is normal and contains a well-positioned central IUD w ithin the cavity. Possible IUD string is noted at internal cervical os. Endometrial lining is thin and appears normal. Bilateral follicular ova jill appear normal with single clear right ovarian cyst 1.4cm noted. Pe ri-adnexal regionas appear normal. No additional pelvic cyst, mass or free fluid. Ut: 5.1x5.1x3.4cm (46cm3). End Lininmm. Lt. Ov: [id number]. Rt. Ov : [id number]. Type of ultrasound: TRANSVAGINAL NON OB Orion Freitas MD IMG US ORDERABLES documented in this encounter Visit Diagnoses Diagnosis Intrauterine device surveillance Surveillance of previously prescribed in trauterine contraceptive device documented in this encounter Additional Health Concerns Assessment Noted Time PHQ-9 Depression Total Score: 19 09/04/2015 7:20 AM CD T documented as of this encounter Care Teams Hotel Baggage Handler Relationship Specialty Start Date End Date No Ref-Primary, Physician PCP - General 07/27/15 04/14/20 documented as of this encounter
--- OUTSIDE RECORDS SUMMARY | 2022-08-31 22:26 | XMS_ITS | Encounter Summary ---
:1990 Author Organization [facility] Address [address] [place] [address] Care Team Providers Name Role Phone No Ref-Primary, Physician Primary Care Provider [phone] Reason for Visit Auth/Cert - Closed Specialty Diagnoses / Procedures Referred By Contact Refer red To Contact Surgery Diagnoses PELVIC PAIN, LOST IUD Sh Periop Services Procedures LASER CO2 LAPAROSCOPIC VAPORIZATION ENDOMETRIUM OPERATIVE HYSTEROSCOPY [address], [address] [place] [address] Phone: Referral ID Status Reason Start Date Expiration Date Visits Requ ested Visits Authorized [id number] Closed 1 1 Encounter Details Date Type Department Care Team Description 11/13/2015 Hospital Encounter [facility] Orion Freitas Pe lvic pain in [facility] Phase II MD [place] female (Primary Dx) [address] [place] [id number] [place] [address] [place] [id number] Social History Tobacco Use Types Packs/Day Years [...] Sign Reading Time Taken Comments Blood Pressure 106/60 11/13/2015 11:03 AM CHEMICAL RESEARCH TECHNICIAN Pulse - - Temperature 36.7 ??C (98.1 ??F) 11/13/2015 10:59 AM CHEMICAL RESEARCH TECHNICIAN Respiratory Rate 16 11/13/2015 10:30 AM CHEMICAL RESEARCH TECHNICIAN Oxygen Saturation 100% 11/13/2015 11:03 AM CHEMICAL RESEARCH TECHNICIAN Inhaled Oxygen Concentration - - Weight 65.8 kg (145 lb) 11/13/2015 7:47 AM CHEMICAL RESEARCH TECHNICIAN Height 167.6 cm (5' 6) 11/13/2015 7:47 AM CHEMICAL RESEARCH TECHNICIAN Body Mass Index 23.4 11/13/2015 7:47 AM CHEMICAL RESEARCH TECHNICIAN documented in this encounter Discharge Instructions Discharge Don Larios RN - 11/13/2015 9:13 AM CST HOME CARE FOLLOWING LAPAROSCOPY Dr. Freitas, Dr. Gallegos, Dr. Colmenares [phone] Diet You have no restrictions on your diet. During the evening following surgery, drink plenty of fluids and eat a light supper. Nausea The anesthesia may produce some nausea. If you feel nauseated try drinking fluids such as 7-Up, tea,or soup. Discomfort The amount of discomfort you can expect is very unpredictable. If you have pain that cannot be controlled with Tylenol or with the prescription you may have received, you should notify your physician. The following complaints are not uncommon and should not be cause for concern: 1. Abdominal tenderness; abdominal cramping. 2. Low backache or pain radiating to your shoulders, chest or back. This is a result of the gas usedto inflate your abdomen during surgery. Lying flat in bed seems to help relieve this. 3. Sore throat for a day or two resulting from the anesthesia tube used during surgery. 4. Some bruising on your abdomen. Drainage You may expect a small amount of drainage from the incision on your abdomen and you may change the bandage when necessary. You will also have a small amount of vaginal drainage for several days; this is normal and no cause for concern. If excessive bleeding occurs, notify your physician. If dye was used during your procedure, your urine will initially be bright blue. It will gradually return to yellow throughout the day. Drinking plenty of fluids will help to filter the dye from your urine. Fever A low grade fever (not over 101?? Fahrenheit) is usual after this procedure. Do not hesitate to notify your physician if your fever seems excessive. Activity Rest on the day of surgery then you may resume your normal activity, as tolerated. Avoid heavy lifting for one week. You may shower. Do not douche or use tampons. If you also had a D&C, do not resume intercourse until bleeding has ceased. Emergency Care Contact your physician if you have any of these problems: 1. A fever over 101?? Fahrenheit 2. A large amount of bleeding or drainage 3. Severe pain While you were at the hospital today you received Toradol, an antiinflammatory medication similar toIbuprofen. You should not take other antiinflammatory medication, such as Ibuprofen, Motrin, Advil, Aleve, Naprosyn, etc, until 3:00 this afternoon. You may take Ibuprofen products while on your prescribed narcotic. Same Day Surgery Discharge Instructions for Sedation and General Anesthesia ?? It's not unusual to feel dizzy, light-headed or faint for up to 24 hours after surgery or while taking pain medication. If you have these symptoms: sit for a few minutes before standing and have someone assist you when you get up to walk or use the bathroom. ?? You should rest and relax for the next 24 hours. You must make arrangements to have an adult staywith you for at least 24 hours after your discharge. Avoid hazardous and strenuous activity. ?? DO NOT DRIVE any vehicle or operate mechanical equipment for 24 hours following the end of your surgery. Even though you may feel normal, your reactions may be affected by the medication you have received. ?? Do not drink alcoholic beverages for 24 hours following surgery. ?? It's not unusual to feel nauseated and/or vomit after receiving anesthesia. If you develop these symptoms, drink clear liquids (apple juice, mic mazin, broth, 7-up, etc. ) until you feel better. Slowly progress to your regular diet as you feel able. If your nausea and vomiting persists for 24 hours, please notify your surgeon. ?? All narcotic pain medications, along with inactivity and anesthesia, can cause Constipation. Drinking plenty of liquids and increasing fiber intake will help. ?? For any questions of a medical nature, call your surgeon. ?? Do not make important decisions for 24 hours. ?? If you had general anesthesia, you may have a sore throat for a couple of days related to the breathing tube used during surgery. You may use Cepacol lozenges to help with this discomfort. If it worsens or if you develop a fever, contact your surgeon. ?? If you feel your pain is not well managed with the pain medications prescribed by your surgeon, please contact your surgeon's office to let them know so they can address your concerns. If you have questions or concerns about your procedure, call Dr. Freitas at [phone] ICAL RESEARCH TECHNICIAN documented in this encounter Medications at Time of Discharge Medication Sig Dispensed Refills Start Date End Date Ferrous Sulfate (IRON 0 10/2016 SUPPLEMENT PO) HYDROcodone-acetaminoph Take 1-2 tablets by 30 tablet 0 11/26/2015 en (NORCO) 5-325 MG per mouth every 4 hours tabletIndications: as needed for other Pelvic pain in female (Moderate to Severe Pain) IBUPROFEN PO Take 400 mg by mouth 0 as needed for moderate pain traZODone (DESYREL) 100 Take 1.5 tablets (150 30 tablet 0 1 03/02/2016 MG tabletIndications: mg) by mouth At Persistent disorder of Bedtime initiating or maintaining sleep busPIRone (BUSPAR) 15 Take 1 tablet (15 mg) 180 tablet 3 04/201504/30/2016 MG tabletIndications: by mouth 2 times CAMERON (generalised daily anxiety disorder) levonorgestrel (MIRENA) 1 each by 0 0 03/02/2016 20 MCG/24HR IUD Intrauterine route documented as of this encounter Progress Notes Orion Freitas MD - 11/17/2015 12:21 PM CHEMICAL RESEARCH TECHNICIAN Quick Note: Pathology noted, will discuss at post op visit. ICAL RESEARCH TECHNICIAN Don Mccabe RN - 11/13/2015 11:28 AM CST PNDS met, po per I&O sheet. Pt dressed, up in recliner and transported to Phase 2. ICAL RESEARCH TECHNICIAN Neville Cooper RN - 11/13/2015 10:53 AM CST Pt develops hives and itch to l FA post Fentanyl IV meds- Dr notified and at bedside- orders for benadryl 25 IV now- being administered by Nurse Murray ICAL RESEARCH TECHNICIAN Don Mccabe RN - 11/13/2015 9:57 AM CST Patient woke up calm. Surgeon at bedside informing patient that he found the IUD, there was small adhesion and endometriosis; and that her boyfriend has the pictures. ICAL RESEARCH TECHNICIAN Don Mccabe RN - 11/13/2015 9:48 AM CST Patient woke up very anxious and crying. Tried to calm patient and re-oriented to situation. Patientcontinued to cry and stated she was having a panic attack. MDA informed. MDA at bedside. Patient started to calm down but stated she is still very anxious inside. Versed 1 mg IV given per order. Patient currently resting. Will continue to monitor. ICAL RESEARCH TECHNICIAN documented in this encounter H&P Notes Meggan Marley - 11/10/2015 10:54 AM CST This note is for the purpose of making the H&P performed in clinic within the last 30 days available in the hospital encounter. ICAL RESEARCH TECHNICIAN Source Note - Orion Freitas MD - 10/31/2015 3:46 PM CHEMICAL RESEARCH TECHNICIAN The patient is a 25-year-old 1 para 1 who was seen earlier this week for progressive increase in pelvic pain and dyspareunia to the point of avoidance. She had an IUD placed to control her cycles but has not been able to feel the string for the last year. An ultrasound today showed a 1.4 cm follicular cyst on the right and an IUD that is centrally located. The string is most likely in the upper canal. There were no other signs of pelvic adhesive disease or endometriosis. Her examination on first visit to the office showed some much tenderness that it was impossible to discern any adnexal pathology. The option of further observation has been discussed. The patient wants the IUD removed. Sheis desirous of further childbearing capacity somewhere down the road. We presented the option of probing in trying to find the string in the canal for removal of the IUD or if she opted for laparoscopic evaluation of her pain we could also do a hysteroscopy with removal of the IUD. The risks and compli cations of both procedures have been presented to the patient. This includes general anesthesia blood loss infection and injury to bowel bladder or ureters and major vessels. Examination shows a healthy alert and white female. Height 66 inches weight 141. Blood pressure 122/74. HEENT is negative. Chest is clear in all marie. Cardiovascular exam within normal limits with normal S1-S2 no murmur. Abdominal examination shows no mass effect and normal bowel sounds. Pelvic examination shows normal external genitalia vagina and cervix. There is no IUD string present. The corpus is tender on motion. Thereis tenderness in the posterior cul-de-sac. Extremities negative. Impression-patient with progressive increase in pelvic pain and dyspareunia to the point of avoidance. She has a lost IUD that she wantsremoved. We will plan a hysteroscopy for IUD removal and a laparoscopy with CO2 laser for evaluationof her pain and dyspareunia. ICAL RESEARCH TECHNICIAN Orion Freitas MD - 10/31/2015 3:46 PM CST The patient is a 25-year-old 1 para 1 who was seen earlier this week for progressive increase in pelvic pain and dyspareunia to the point of avoidance. She had an IUD placed to control her cycles but has not been able to feel the string for the last year. An ultrasound today showed a 1.4 cm follicular cyst on the right and an IUD that is centrally located. The string is most likely in the upper canal. There were no other signs of pelvic adhesive disease or endometriosis. Her examination on first visit to the office showed some much tenderness that it was impossible to discern any adnexal pathology. The option of further observation has been discussed. The patient wants the IUD removed. Sheis desirous of further childbearing capacity somewhere down the road. We presented the option of probing in trying to find the string in the canal for removal of the IUD or if she opted for laparoscopic evaluation of her pain we could also do a hysteroscopy with removal of the IUD. The risks and compli cations of both procedures have been presented to the patient. This includes general anesthesia blood loss infection and injury to bowel bladder or ureters and major vessels. Examination shows a healthy alert and white female. Height 66 inches weight 141. Blood pressure 122/74. HEENT is negative. Chest is clear in all marie. Cardiovascular exam within normal limits with normal S1-S2 no murmur. Abdominal examination shows no mass effect and normal bowel sounds. Pelvic examination shows normal external genitalia vagina and cervix. There is no IUD string present. The corpus is tender on motion. Thereis tenderness in the posterior cul-de-sac. Extremities negative. Impression-patient with progressive increase in pelvic pain and dyspareunia to the point of avoidance. She has a lost IUD that she wantsremoved. We will plan a hysteroscopy for IUD removal and a laparoscopy with CO2 laser for evaluationof her pain and dyspareunia. ICAL RESEARCH TECHNICIAN documented in this encounter Miscellaneous Notes Op Note - Orion Freitas MD - 11/13/2015 9:19 AM CST PREOPERATIVE DIAGNOSIS: Lost IUD, severe pelvic pain. POSTOPERATIVE DIAGNOSIS: Lost IUD, severe pelvic pain. PROCEDURE: Hysteroscopy, removal of lost IUD, laparoscopy, laser vaporization of endometriosis, laser lysis of pericecal adhesions. OPERATIVE FINDINGS: The IUD string was completely coiled up inside the endometrial cavity. This was removed without difficulty. A gentle curettage was performed and tissue submitted. Intraabdominally, there was a relatively clean anterior and posterior cul-de-sac with endometriosis on both ovaries andtubes. There were also multiple dense adhesions around the terminal ileum and cecum. There was a retrocecal appendix that was involved in the adhesions. The liver and gallbladder looked normal. OPERATIVE PROCEDURE: After general anesthesia was induced, the patient was placed in the dorsal lithotomy position and prepped and draped in the usual fashion. The cervix was grasped and carefully dilated. The hysteroscope was placed and the IUD identified with the string completely inside. This was gr asped with an alligator forceps and removed without difficulty. A gentle curettage was undertaken. Auterine manipulator was placed. Through a subumbilical incision, the Veress needle was placed and 3 liters of CO2 were insufflated. The laparoscope, trocar and sheath were placed without incident. A 5 mm left lower quadrant trocar was placed without incident. The above findings were noted. The laser scope was brought in and all areas of endometriosis on the tubes and ovaries were vaporized away. The cyst on the right ovary looked like a corpus luteum cyst which is interesting in light of her Mirena IUD. All of the pericecal adhesions were taken down to release a coiled retrocecal appendix. There was no sign of any endometriosis present. Upper abdomen exploration was negative. Reinspection of the pelvis showed complete hemostasisof all sites of vaporization. At this time, gas was exhausted and instruments were removed. The incisions were closed with 3-0 Vicryl and Steri-Strips. The patient will be discharged to home and given [place] as needed for pain. She is asked to call for any fever, chills, change in bowel or bladder function. She will return to the office in 2 weeks for a postoperative check. ORION FREITAS JR, MD MT: [id number] Name: GEORGE PORTER MRN: [id number] Account: [id number] : 1990 Procedure Date: 11/13/2015 Document: [id number] ICAL RESEARCH TECHNICIAN Brief Op Note - Orion Freitas MD - 11/13/2015 9:13 AM CST [facility] Brief Operative Note Pre-operative diagnosis: PELVIC PAIN, LOST IUD Post-operative diagnosis Same, endometriosis Procedure: Procedure(s): HYSTEROSCOPY, DILATION AND CURETTAGE, LAPAROSCOPIC C02 LASER VAPORIZATION OF ENDOMETRIOSIS AND LYSISOF PELVIC ADHESIONS Surgeon(s): Surgeon(s) and Role: Panel 1: Orion Freitas MD - Primary Panel 2: Orion Freitas MD - Primary Estimated blood loss: 2 cc Specimens: ID Type Source Tests Collected by Time Destination A : endometrial curettings Tissue Endometrium SURGICAL PATHOLOGY EXAM Orion Freitas MD 11/13/2015 8:47 AM Pathology Findings: See op note ICAL RESEARCH TECHNICIAN documented in this encounter Plan of Treatment Not on filedocumented as of this encounter Procedures Procedure Name Priority Date/Time Associated Comments Diagnosis SURGICAL PATHOLOGY Routine 11/13/2015 8:47 AM Res ults for this EXAM CHEMICAL RESEARCH TECHNICIAN procedure are i n the results section. HYSTEROSCOPY, WITH 11/13/2015 8:32 AM PELVIC PAIN, LOS T DILATION AND CHEMICAL RESEARCH TECHNICIAN IUD CURETTAGE OF UTERUS VAPORIZATION, 11/13/2015 8:32 AM PELVIC PAIN, LOST ENDOMETRIOSIS, CHEMICAL RESEARCH TECHNICIAN IUD LAPAROSCOPIC, USING CO2 LASER HCG QUALITATIVE URINE STAT 11/13/2015 7:30 AM Results for this CHEMICAL RESEARCH TECHNICIAN procedure are i n the results section. documented in this encounter Results Surgical pathology exam (11/13/2015 8:47 AM CHEMICAL RESEARCH TECHNICIAN) Component Value Ref Test Analysis Performed At [facility] Range Method Time Signature Copath Report Patient Name: GEORGE PORTER MR#: [id number] Specimen #: [id number] Collected: 11/13/2015 Received: 11/13/2015 Reported: 11/17/2015 08:41 Ordering Phy(s): ORION FREITAS SPECIMEN(S): Endometrial curettings FINAL DIAGNOSIS: Endometrium, curettage - Benign squamous and endocervical ti ssue and benign endometrium with inactive appearance and progestation al agent like stromal changes without hyperplasia or malignancy Electronically signed out by: Heber Hinojosa M.D. CLINICAL HISTORY: Pelvic pain and loss IUD GROSS: The specimen is received in formalin with proper patient levy ntification labeled endometrial curettings. ??The specimen consists of pink spongy tissue fragment and hemorrhagic material measuring up to 2.0 cm in aggregate. ??The specimen is entirely submitted in one casse tte. (Dictated by: Panfilo Franz 11/13/2015 10:43 AM) MICROSCOPIC: Microscopic performed CPT Codes: A: 46912-IK6 TESTING LAB LOCATION: [address], [place] ??[address] COLLECTION SITE: Client: [facility] Location: [facility] (S) Specimen Anatomical Collection Method Collection Time Receive d Time (Source) Location / / Volume Laterality 11/13/2015 8:47 AM 5 CHEMICAL RESEARCH TECHNICIAN 10:24 AM CHEMICAL RESEARCH TECHNICIAN Orion Freitas MD LAB - BEAKER AP Performing Organization Address City/[facility]/ZIP [facility] [place] Number COPATH HCG qualitative urine (11/13/2015 7:30 AM CHEMICAL RESEARCH TECHNICIAN) P athologist Signature HCG Qual Urine Negative NEG [facility] Specimen Anatomical Collection Method Collection Time Receive d Time (Source) Location / / Volume Laterality Urine specimen URINE SPECIMEN 11/13/2015 7:30 AM 11/13 7:54 (specimen) OBTAINED BY CLEAN CHEMICAL RESEARCH TECHNICIAN AM CHEMICAL RESEARCH TECHNICIAN CATCH PROCEDURE / Unknown Orion Freitas MD LAB - URINE ORDERABLES Performing Organization Address [facility] Phon e Number M [place] [address] [place] [address] [phone] [address] [place] [address], [facility] [phone] documented in this encounter Visit Diagnoses Diagnosis Pelvic pain in female - Primary Unspecified symptom associated with fema le genital organs documented in this encounter Administered Medications Inactive Administered Medications - up to 3 most recent administrations Medication Order MAR Action Action Date Dose Rate Site diphenhydrAMINE (BENADRYL) Given 11/13/2015 10:58 AM CHEMICAL RESEARCH TECHNICIAN 25 mg injection 25 mg 25 mg, Intravenous, ONCE, On Marizol 11/13/15 at 1100, For 1 dose, Post-procedure fentaNYL (SUBLIMAZE) injection 25-50 mcg Given 11/13/2015 10:48 AM CHEMICAL RESEARCH TECHNICIAN 25 mcg 25-50 mcg, Intravenous, EVERY 5 MIN PRN, other, acute pain while in PACU., Starting on Marizol 11/13/15 at 0910, MAX cumulative dose = 250 mcg. Use Fentanyl initially, as a short acting agent for acute pain control. If insufficient, or a longer acting agent is needed, begin Morphine or Hydromorphone if ordered., PACU Given 11/13/2015 10:01 AM CHEMICAL RESEARCH TECHNICIAN 50 mcg Given 11/13/2015 9:20 AM CHEMICAL RESEARCH TECHNICIAN 50 mcg HYDROcodone-acetaminophen (NORCO) 5-325 MG Given 11/13 11:05 AM CHEMICAL RESEARCH TECHNICIAN 1 tablet per tablet 1-2 tablet 1-2 tablet, Oral, ONCE PRN, moderate to severe pain, Starting on Marizol 11/13/15 at 0943, For 1 dose, One time prior to discharge. Maximum acetaminophen dose from all sources= 75 mg/kg/day not to exceed 4 grams, Post-procedure lactated ringers infusion New Bag 11/13/2015 10:24 AM CHEMICAL RESEARCH TECHNICIAN 1,000 mLs 100 mL/hr at 100 mL/hr, Intravenous, CONTINUOUS, Continue until IV catheter is weaned, PACU/Phase II, Starting on Marizol 11/13/15 at 0915, Until Marizol 11/13/15 at 1346 meperidine (DEMEROL) injection 12.5 mg Given 11/13/2015 10:41 AM CHEMICAL RESEARCH TECHNICIAN 12.5 mg 12.5 mg, Intravenous, EVERY 15 MIN PRN, post anesthesia shivering, Starting on Marizol 11/13/15 at 0910, For 2 doses, PACU/Phase II midazolam (VERSED) injection 0.5-1 mg Given 11/13/2015 9:44 AM CHEMICAL RESEARCH TECHNICIAN 1 mg 0.5-1 mg, Intravenous, EVERY 5 MIN PRN, muscle spasms, Starting on Marizol 11/13/15 at 0910, Max cumulative dose = 2 mg, PACU documented in this encounter Active and Recently Administered Medications Times are shown in CHEMICAL RESEARCH TECHNICIAN. Scheduled Medication Order 11/11/2015 11/12/2015 11/13/2015 diphenhydrAMINE (BENADRYL) injection 25 mg (COMPLETED) 1058 (Given - Provider: Don Mccabe RN) 25 mg, Intravenous, ONCE, On Marizol 11/13/15 at 1100, For 1 dose, P ost-procedure Continuous Medication Order 11/11/2015 11/12/2015 11/13/2015 lactated ringers infusion (CANCELED) 1024 (New Bag - Provider: Don Mccabe, [place]) at 100 mL/hr, Intravenous, CONTINUOUS, C ontinue until IV catheter is weaned, PACU/Phase II, Starting on Marizol 11/13/15 at 0915, Until Marizol 11/13/15 at 1346 PRN Medication Order 11/11/2015 11/12/2015 11/13/2015 bupivacaine 0.25% (MARCAINE) 0.25 % injection (CANCELED) 0908 (Given - Provider: Orion Freitas MD) PRN, Starting on Marizol 11/13/15 at 0908, Intra-procedure fentaNYL (SUBLIMAZE) injection 25-50 mcg (CANCELED) 0920 (Given - Provider: Don Mccabe RN)1001 (Given - Provider: Don Mccabe RN)1048 (Given - Provider: Neville Cooper, [place]AD[place]ICK) 25-50 mcg, Intravenous, EVERY 5 MIN PRN, other, acute pain while in PACU., Starting on Marizol 11/13/15 at 0910, MAX cumulative dose = 250 mcg. Use Fentanyl initially, as a short acting agent for acute pain control. If insufficient, or a longer a cting agent is needed, begin Morphine or Hydromorphone if ordered., PACU heparin 5,000 units in lactated ringers soln 1,000mL (CANCELED) 0908 (Given - Provider: Orion Freitas MD) PRN, Starting on Marizol 11/13/15 at 0908, Intra-procedure HYDROcodone-acetaminophen (NORCO) 5-325 MG per tablet 1-2 tablet (COMPLETED) 1105 (Given - Provider: Don Mccabe RN) 1-2 tablet, Oral, ONCE PRN, moderate to severe pain, Starting on Marizol 11/13/15 at 0943, For 1 dose, One time prior to discharge. Maximum acetaminophen dose from all sources= 75 mg/kg/day not to exceed 4 grams, Post-procedure meperidine (DEMEROL) injection 12.5 mg (CANCELED) 1041 (Given - Provider: Neville Cooper, CHAD[place]ICK) 12.5 mg, Intravenous, EVERY 15 MIN PRN, post anesthesia shivering, Starting on Marizol 11/13/15 at 0910, For 2 doses, PACU/Phase II midazolam (VERSED) injection 0.5-1 mg (CANCELED) 0944 (Given - Provider: Don Mccabe RN) 0.5-1 mg, Intravenous, EVERY 5 MIN PRN, muscle spasms, Starting on Marizol 11/13/15 at 0910, Max cumulative dose = 2 mg, PACU sodium chloride 0.9% (bag) irrigation (CANCELED) 0854 (Given - Provider: Orion Freitas MD) PRN, Starting on Marizol 11/13/15 at 0854, Intra-procedure sodium chloride 0.9% (bottle) irrigation (CANCELED) 0855 (Given - Provider: Orion Freitas MD - Comment: 900ML ADMINISTERED TO FIELD FOR PRN USE) PRN, Starting on Marizol 11/13/15 at 0855, Intra-procedure documented in this encounter Additional Health Concerns Assessment Noted Time PHQ-9 Depression Total Score: 19 09/04/2015 7:20 AM CD T documented as of this encounter Care Teams Assistant Boiler Operator Relationship Specialty Start Date End Date No Ref-Primary, Physician PCP - General 07/27/15 04/14/20 documented as of this encounter
--- OUTSIDE RECORDS SUMMARY | 2022-08-31 22:26 | XMS_ITS | Encounter Summary ---
:1990 Author Organization [place] Address [facility] [place] [address] Care Team Providers Name Role Phone No Ref-Primary, Physician Primary Care Provider [phone] Reason for Visit Reason Comments Consult pregancy postive test at ER, and BV not treated Encounter Details Date Type Department Care Team Description 04/09/2016 Office Visit [facility] Orion Puente Pr egnancy test positive (Primary Dx); AND SURGERY CINDI WAYNE Pelvic pain in female [facility] [address] [address] [place] [id number] Social History Tobacco Use Types Packs/Day [...] Reading Time Taken Comments Blood Pressure 110/60 04/09/2016 10:29 AM CDT Pulse - - Temperature - - Respiratory Rate - - Oxygen Saturation - - Inhaled Oxygen Concentration - - Weight 64 kg (141 lb) 04/09/2016 10:29 AM CDT Height 170.2 cm (5' 7) 04/09/2016 10:29 AM CDT Body Mass Index 22.08 04/09/2016 10:29 AM CDT documented in this encounter Progress Notes Sonali Us, DIANA LIFE SKILLS EDUCATOR - 04/12/2016 9:43 AM CDT Quick Note: Called patient LM with results. Orion Puente MD - 04/09/2016 10:21 AM CDT SUBJECTIVE: Keyla Porter is a 25 year old female who presents to clinic today for the following health issue(s): Patient presents with: Vaginal Problem Additional information: Quantitative hCG of 850. Ultrasound emergency room that showed no free fluidin the abdominal cavity or adnexal abnormality but no pole identified in the endometrial cavity. HPI: The patient is seen in follow-up from a emergency room visit on Tuesday. She was having some shoulder pain and had a positive test. She does not report any pelvic pain. Her hCG level was at 850 and no intrauterine gestation was identified on ultrasound. We were consulted and certainlyare concerned about the possibility of ectopic . We will get her hCG level today and have her come back Tuesday for an ultrasound. She will be beyond 5 weeks at that point and if this is an intrauterine gestation it should be identifiable. No LMP recorded. Patient is not currently having periods (Reason: Control).. Patient is sexually active, . Using none for contraception. reports that she has been smoking Cigarettes. She has been smoking about 0.10 packs per day. She has never used smokeless tobacco. STD testing offered? Declined Health maintenance updated: yes Today's PHQ-2 Score: PHQ-2 (??1998 Pfizer) 12/02/2015 Q1: Little interest or pleasure in doing things 0 Q2: Feeling down, depressed or hopeless 0 PHQ-2 Score 0 Today's PHQ-9 Score: PHQ-9 SCORE 09/02/2015 Total Score 19 Today's CAMERON-7 Score: CAMERON-7 SCORE 09/02/2015 Total Score 16 Problem list and histories reviewed & adjusted, as indicated. Additional history: as documented. Patient Active Problem List Diagnosis ??? ASCUS on Pap smear ??? CARDIOVASCULAR SCREENING; LDL GOAL LESS THAN 160 ??? Supervision of normal first ??? Suicidal ideation ??? Major depressive disorder, recurrent, severe without psychotic features (H) ??? Generalized anxiety disorder ??? Chronic migraine without aura without status migrainosus, not intractable Past Surgical History Procedure Laterality Date ??? C oral surgery procedure ??? Dilation and curettage suction, treat incomplete 2008 ??? Laparoscopy 03/2010 ??? Colonoscopy ??? Laser co2 laparoscopic vaporization endometrium N/A 11/13/2015 Procedure: LASER CO2 LAPAROSCOPIC VAPORIZATION ENDOMETRIUM; Surgeon: Orion Puente MD; Location: [facility] ??? Dilation and curettage, operative hysteroscopy, combined N/A 11/13/2015 Procedure: COMBINED DILATION AND CURETTAGE, OPERATIVE HYSTEROSCOPY; Surgeon: Orion Puente MD; Location: [place] History Substance Use Topics ??? Smoking status: Current Every Day Smoker -- 0.10 packs/day Types: Cigarettes ??? Smokeless tobacco: Never Used Comment: smoking 10cig/day- down to 1-2 with ??? Alcohol Use: No Problem (# of Occurrences) Relation (Name,Age of Onset) Alcohol/Drug (2) Mother: meth, Father: drugs Blood Disease (1) Paternal Grandfather: anemia Cancer (1) Paternal Grandfather: lung and skin Cerebrovascular Accident (2) Father: also brain aneurysm, Paternal Grandfather: also [place] Depression (1) Mother Diabetes (1) Paternal Grandmother Current Outpatient Prescriptions Medication Sig ??? norethindrone-ethinyl estradiol (MICROGESTIN .04/19) 1.5-30 MG-MCG per tablet Take 1 tablet by mouth daily ??? IBUPROFEN PO Take 400 mg by mouth as needed for moderate pain ??? busPIRone (BUSPAR) 15 MG tablet Take 1 tablet (15 mg) by mouth 2 times daily (Patient taking differently: Take 7.5 mg by mouth daily ) No current facility-administered medications for this visit. Allergies Allergen Reactions ??? Morphine Unknown Nerve pain ??? [place] ROS: 12 point review of systems negative other than symptoms noted below. Constitutional: Fatigue Gastrointestinal: Abdominal Pain and Nausea Genitourinary: Cramps, Pelvic Pain and Vaginal Discharge Skin: Acne Neurologic: Headaches Psychiatric: Anxiety OBJECTIVE: There were no vitals taken for this visit. There is no weight on file to calculate BMI. Exam: Constitutional: Appearance: Well nourished, well developed alert, in no acute distress. Patient denies pelvic examination at this time as she had to the emergency room. She certainly walks without any difficulty. In-Clinic Test Results: No results found for this or any previous visit (from the past 24 hour(s)). ASSESSMENT/PLAN: Patient with positive test both qualitatively and quantitatively. Her ultrasound may have been too early by her last menstrual period to show an intrauterine gestation. With her past history we are certainly concerned about an ectopic gestation. She will get an ultrasound on Tuesday. She is instructed to call us immediately for any increased pain abnormal bleeding or dizziness. She has not bled up to this point and certainly was very comfortable in the office today. Orion Puente MD [facility] AND SURGERY [place] [employer] S[employer] documented in this encounter Plan of Treatment Not on filedocumented as of this encounter Procedures Procedure Name Priority Date/Time Associated Comments Diagnosis HCG QUANTITATIVE Routine 04/09/2016 10:47 test Resul ts for this AM CDT positive procedure are i n the results section. documented in this encounter Results HCG quantitative (04/09/2016 10:47 AM CDT) P athologist Signature HCG Quantitative 1,587 IU/L [facility] Comment: Non- ?0 - 5 , weeks from LMP: ??1 - 10 weeks ? 64 - 151,000 IU/L 11 - 15 weeks 11,800 - 152,000 IU/L 16 - 22 weeks ??9,380 - 61,400 IU/L 23 - 40 weeks ??1,740 - 98,600 IU/L Specimen Anatomical Collection Method Collection Time Receive d Time (Source) Location / / Volume Laterality Blood specimen 04/09/2016 10:47 6 (specimen) AM CDT 10:49 AM CDT Orion Puente MD LAB - BLOOD ORDERABLES Performing Organization Address City/State/ZIP Code Phon e Number M [facility] [address] [address] [facility] [address] [address], [facility] [phone] documented in this encounter Visit Diagnoses Diagnosis test positive - Primary examination or test, positive result Pelvic pain in female Unspecified symptom associated with fema le genital organs documented in this encounter Additional Health Concerns Assessment Noted Time PHQ-9 Depression Total Score: 19 09/04/2015 7:20 AM CD T documented as of this encounter Care Teams Electrical Products Engineer Relationship Specialty Start Date End Date No Ref-Primary, Physician PCP - General 07/27/15 04/14/20 documented as of this encounter
--- OUTSIDE RECORDS SUMMARY | 2022-08-31 22:26 | XMS_ITS | Encounter Summary ---
:1990 Author Organization [place] Address [facility] [place] [address] Care Team Providers Name Role Phone No Ref-Primary, Physician Primary Care Provider [phone] Encounter Details Date Type Department Care Team Description 04/12/2016 Radiant Appointment Orion Martinez Pelvic pain in GYNECOLOGY AND MD [place] female SURGERY [place] [address] ULTR[address]OUND [address] [place] [address] [address] [place] (Work) [phone] Social History Tobacco Use Types [...] Associated Comments Diagnosis US OB TRANSVAGINAL Routine 04/12/2016 3:29 PM Pelvic pain in R esults for this ONLY CDT female procedure are i n the results section. documented in this encounter Results US OB Transvaginal Only (04/12/2016 3:29 PM CDT) Anatomical Region Laterality Modality Abdomen/Pelvis Computed Radiography Specimen (Source) Anatomical Location Collection Method / Collectio n Time Received Time / Laterality Volume Narrative 04/13/2016 4:13 PM CDT US OB Transvaginal Only Order #: [id number] Study Notes? Alvin Leal on 04/12/2016 ??3:3 3 PM ?? ULTRASOUND - EARLY OB (0-11 WEEKS) Referring Provider: ROSS DEVRIES Clinic: [place] TRANSMITTER ENGINEER IN CHARGE [place] DIAGNOSTIC SALES SPECIALIST NARRATIVE: Uterus shows single IU gestational sac c entrally located measuring 5wks 1day in size with yolk sac identified. N o FHT's noted today. No IU hematoma or fibroid. Left and right ovar ies and luzmaria-adnexal regions appear normal. Resolving right ovarian c orpus luteum cyst is noted. Type of ultrasound performed: OB TRANSVA GINAL ONLY ? Discussed here Orion Puente MD IMG US ORDERABLES documented in this encounter Visit Diagnoses Diagnosis Pelvic pain in female Unspecified symptom associated with fema le genital organs documented in this encounter Additional Health Concerns Assessment Noted Time PHQ-9 Depression Total Score: 19 09/04/2015 7:20 AM CD T documented as of this encounter Care Teams Linking Machine Operator Relationship Specialty Start Date End Date No Ref-Primary, Physician PCP - General 07/27/15 04/14/20 documented as of this encounter
--- OUTSIDE RECORDS SUMMARY | 2022-08-31 22:26 | XMS_ITS | Encounter Summary ---
:1990 Author Organization [place] Address [facility] [place] [place] [address] Care Team Providers Name Role Phone No Ref-Primary, Physician Primary Care Provider [phone] Reason for Visit Reason Comments Care Encounter Details Date Type Department Care Team Description 05/19/2016 Office Visit [facility] Sonali Us tage of [facility] APRN CNP (Primary Dx) BUSINESS SUPPORT PROFESSIONAL [address] [place] [address] [place] [address] Social History Tobacco Use Types Packs/Day [...] Sign Reading Time Taken Comments Blood Pressure 114/64 05/19/2016 9:28 AM CDT Pulse - - Temperature - - Respiratory Rate - - Oxygen Saturation - - Inhaled Oxygen Concentration - - Weight 65.3 kg (144 lb) 05/19/2016 9:28 AM CDT Height - - Body Mass Index 22.55 04/12/2016 2:51 PM CDT documented in this encounter Progress Notes Sonali Us APRN CNP - 05/21/2016 8:19 AM CDT Quick Note: Letter with results sent to patient. Sonali Us APRN CNP - 05/19/2016 9:24 AM CDT SUBJECTIVE: Keyla Porter is a 25 year old female who presents to clinic today for the following health issue(s): Patient presents with: Care HPI: Pt is 10w 4 days based on LMP. She has been nauseous and has a few episodes of vomiting. She is planning OB care at [facility] with the cooler room worker group. She is here with her significant other. Patient's last menstrual period was 02/29/2016 (exact date).. Patient is sexually active, . Using none for contraception. reports that she has quit smoking. Her smoking use included Cigarettes. She smoked 0.10 packs per day. She has never used smokeless tobacco. STD testing offered? Declined Health maintenance updated: yes Today's PHQ-2 Score: PHQ-2 (??1999 Pfizer) 12/02/2015 Q1: Little interest or pleasure [...] VAPORIZATION ENDOMETRIUM; Surgeon: Orion Puente MD; Location: [facility] ??? Dilation and curettage, operative hysteroscopy, combined N/A 11/13/2015 Procedure: COMBINED DILATION AND CURETTAGE, OPERATIVE HYSTEROSCOPY; Surgeon: Orion Puente MD; Location: [facility] History Substance Use Topics ??? Smoking status: [...] Father: also brain aneurysm, Paternal Grandfather: also [place] Depression (1) Mother Diabetes (1) Paternal Grandmother Current Outpatient Prescriptions Medication Sig ??? Vit-Fe Fumarate-FA ( COMPLETE) 14-0.4 MG TABS Take 1 tablet by mouth daily No current facility-administered medications for this visit. Allergies Allergen Reactions ??? Morphine Unknown Nerve pain ??? [place] ROS: 12 point review of systems negative other than symptoms noted below. Constitutional: Fatigue and Loss of Appetite Gastrointestinal: Nausea and Vomiting Genitourinary: Vaginal Discharge Skin: Acne Neurologic: Dizziness and Headaches Psychiatric: Anxiety and [place] OBJECTIVE: BP 114/64 mmHg Wt 144 lb (65.318 kg) LMP 02/29/2016 (Exact Date) ? No Body mass index is 22.55 kg/(m^2). Exam: Constitutional: Appearance: Well nourished, well developed alert, in no acute distress Neurologic/Psychiatric: Mental Status: Oriented X3 In-Clinic Test Results: Results for orders placed or performed in visit on 05/19/16 (from the past 24 hour(s)) ABO type Result Value Ref Range ABO Pending RH(D) Pending Specimen Expires Pending Rh type Result Value Ref Range ABO Pending RH(D) Pending Specimen Expires Pending Antibody screen red cell Result Value Ref Range Antibody Screen Pending ASSESSMENT/PLAN: ICD-10-CM 1. Early stage of Z33.1 CBC with platelets Urine macroscopic only Hepatitis B surface antigen Rubella Antibody IgG Quantitative Anti Treponema Urine Culture Aerobic Bacterial ABO type Rh type Antibody screen red cell Pap smear up to date. Pt wishes to do OB labs today will transfer care to [facility] after this visit. I have encouraged her to call to set up appointment. Sonali Us APRN CNP [facility] [place] BUSINESS SUPPORT PROFESSIONAL documented in this encounter Plan of Treatment Not on filedocumented as of this encounter Procedures Procedure Name Priority Date/Time Associated Comments Diagnosis URINE CULTURE Routine 05/19/2016 10:09 Early stage of Results for this AM CDT procedure are i n the results section. URINE MACROSCOPIC Routine 05/19/2016 10:08 Early stage of Resu lts for this ONLY AM CDT procedure are i n the results section. RH TYPE Routine 05/19/2016 9:53 AM Early stage of Results for this CDT procedure are i n the results section. ANTIBODY SCREEN - RED Routine 05/19/2016 9:53 AM Early stage o f Results for this CELL CDT procedure are i n the results section. RUBELLA ANTIBODY IGG Routine 05/19/2016 9:52 AM Early stage of Results for this CDT procedure are i n the results section. HEPATITIS B SURFACE Routine 05/19/2016 9:52 AM Early stage of Results for this ANTIGEN CDT procedure are i n the results section. ANTI TREPONEMA Routine 05/19/2016 9:52 AM Early stage of Resul ts for this CDT procedure are i n the results section. ABO TYPE Routine 05/19/2016 9:52 AM Early stage of Results for this CDT procedure are i n the results section. CBC WITH PLATELETS Routine 05/19/2016 9:52 AM Early stage of R esults for this CDT procedure are i n the results section. documented in this encounter Results Urine Culture Aerobic Bacterial (05/19/2016 10:09 AM CDT) Component Value Ref Test Analysis Performed At [facility] Range Method Time Signature Specimen Midstream Urine [place] Description [facility] [employer] [facility]OC[facility] SUR[facility] Culture Micro <10,000 colonies/mL urogenital jero [facility] testing not routinely done [facility] Micro Report FINAL 05/20/2016 [facility] Specimen Anatomical Collection Method Collection Time Receive d Time (Source) Location / / Volume Laterality Urine specimen 05/19/2016 10:09 6 (specimen) AM CDT 10:10 AM CDT Sonali Riddle Abeba ORTIZ RECREATIONAL THERAPY AIDE LAB - MICRO GENERAL ORDERAB LES Performing Organization Address City/State/ZIP Code Phon e Number [address] [address] [facility] B[employer]FU[employer]S PRODUCTION ASSOCIATE SURG (ABNORMAL) Urine macroscopic only (05/19/2016 10:08 AM CDT) Patholo gist Method Time Signature Color Urine Yellow [facility] [employer] ASSOCIATE SURG Appearance Urine Clear [facility] [employer]ODUCTION ASSOCIATE SURG Glucose Urine Negative NEG mg/dL [facility] [employer] PRODUCTION ASSOCIATE SURG Bilirubin Urine Negative NEG [facility] [employer] PRODUCTION ASSOCIATE SURG Ketones Urine Negative NEG mg/dL [facility] [employer]FU[employer]S PRODUCTION ASSOCIATE SURG Specific [place] 1.025 1.003 - [place] Urine 1.035 [facility] [employer] PRODUCTION ASSOCIATE SURG Blood Urine Negative NEG [facility] [employer] PRODUCTION ASSOCIATE SURG pH Urine 6.5 5.0 - 7.0 [place] pH [facility] [employer] PRODUCTION ASSOCIATE SURG Protein Albumin Trace (A) NEG mg/dL [place] Urine [facility] [employer] PRODUCTION ASSOCIATE SURG Urobilinogen 0.2 0.2 - 1.0 [place] Urine EU/dL [facility] [employer] PRODUCTION ASSOCIATE SURG Nitrite Urine Negative NEG [facility] [employer]S PRODUCTION ASSOCIATE SURG Leukocyte Negative NEG [place] Esterase Urine [facility] [employer] PRODUCTION ASSOCIATE SURG Source Midstream [place] Urine [facility] [employer] PRODUCTION ASSOCIATE SURG Specimen Anatomical Collection Method Collection Time Receive d Time (Source) Location / / Volume Laterality Urine specimen 05/19/2016 10:08 6 (specimen) AM CDT 10:09 AM CDT Sonali Janessa Us APRN RECREATIONAL THERAPY AIDE LAB - URINE ORDERABLES Performing Organization Address City/[facility]/ZIP Code Phon e Number [facility] B[employer]FU[employer]S PRODUCTION ASSOCIATE SURG Antibody screen red cell (05/19/2016 9:53 AM CDT) Patholo gist Method Time Signature Antibody Screen Pos [facility] Antibody Warm Auto [place] Identification Antibody [facility] Antigen Type [place] Negative [facility] E Negative [facility] Specimen Anatomical Collection Method Collection Time Receive d Time (Source) Location / / Volume Laterality Blood specimen 05/19/2016 9:53 AM 016 9:54 (specimen) CDT AM CDT Sonali Silveirajeremi Us APRN RECREATIONAL THERAPY AIDE LAB - BLOOD BANK TEST ORDER Performing Organization Address City/State/ZIP Code Phon e Number M [facility] [address] [place] [address] [facility] [address] [place] [address], [place] [phone] Rh type (05/19/2016 9:53 AM CDT) Analysis Performed At Patho logist Time Signature ABO A [facility] RH(D) Pos [facility] Specimen 05/22/2016 [facility] Specimen Anatomical Collection Method Collection Time Receive d Time (Source) Location / / Volume Laterality Blood specimen 05/19/2016 9:53 AM 016 9:54 (specimen) CDT AM CDT Sonali Us APRN RECREATIONAL THERAPY AIDE LAB - BLOOD BANK TEST ORDER Performing Organization Address City/State/ZIP Code Phon e Number M [facility] [address] [place] [address] [facility] [address] [place] [address], [place] [phone] ABO type (05/19/2016 9:52 AM CDT) Analysis Performed At Patho logist Time Signature ABO A [facility] RH(D) Pos [facility] Specimen 05/22/2016 [facility] Specimen Anatomical Collection Method Collection Time Receive d Time (Source) Location / / Volume Laterality Blood specimen 05/19/2016 9:52 AM 016 9:54 (specimen) CDT AM CDT Sonali Us APRN, CNP LAB - BLOOD BANK TEST ORDER Performing Organization Address City/State/ZIP Code Phon e Number M [facility] [address] [place] [address] [facility] [address] [place] [address], [place] [phone] Anti Treponema (05/19/2016 9:52 AM CDT) Analysis Performed At Patho logist Time Signature Treponema Negative NEG [facility] Antibody [facility] Specimen Anatomical Collection Method Collection Time Receive d Time (Source) Location / / Volume Laterality Blood specimen 05/19/2016 9:52 AM 016 9:53 (specimen) CDT AM CDT Sonali Souzafilippo ORTIZ RECREATIONAL THERAPY AIDE LAB - BLOOD ORDERABLES Performing Organization Address City/[facility]/ZIP Code Phon e Number [address] Rubella Antibody IgG Quantitative (05/19/2016 9:52 AM CDT) Analysis Performed At Patho logist Time Signature Rubella Antibody 12 IU/mL [facility] IgG [facility] Comment: Positive. ??Suggests previous exposure o r immunization and probable immunity Reference Range: ?? Unvaccinated Negative 0-7 IU/mL Vaccinated or previous exposure Positiv e 10 IU/ml or greater Specimen Anatomical Collection Method Collection Time Receive d Time (Source) Location / / Volume Laterality Blood specimen 05/19/2016 9:52 AM 016 9:53 (specimen) CDT AM CDT Sonali Souzafilippo ORTIZ RECREATIONAL THERAPY AIDE LAB - BLOOD ORDERABLES Performing Organization Address City/[facility]/ZIP Code Phon e Number [address] Hepatitis B surface antigen (05/19/2016 9:52 AM CDT) Patholo gist Method Time Signature Hep B Surface Nonreactive NR [facility] Specimen Anatomical Collection Method Collection Time Receive d Time (Source) Location / / Volume Laterality Blood specimen 05/19/2016 9:52 AM 016 9:53 (specimen) CDT AM CDT Sonali Souzafilippo ORTIZ RECREATIONAL THERAPY AIDE LAB - BLOOD ORDERABLES Performing Organization Address City/[facility]/ZIP Code Phon e Number [address] (ABNORMAL) CBC with platelets (05/19/2016 9:52 AM CDT) Analysis Performed At Path logist Time Signature WBC 6.3 4.0 - 11.0 [place] 10e9/L [facility] RBC Count 3.80 3.8 - 5.2 [facility] 10e12/L [facility] Hemoglobin 11.8 11.7 - [place] 15.7 g/dL [facility] Hematocrit 34.4 (L) 35.0 - [place] 47.0 % [facility] MCV 91 78 - 100 [place] fl [facility] MCH 31.1 26.5 - [place] 33.0 pg [facility] MCHC 34.3 31.5 - [place] 36.5 g/dL [facility] RDW 12.7 10.0 - [place] 15.0 % [facility] Platelet Count 205 150 - 450 [place] 10e9/L [facility] Specimen Anatomical Collection Method Collection Time Receive d Time (Source) Location / / Volume Laterality Blood specimen 05/19/2016 9:52 AM 016 9:53 (specimen) CDT AM CDT Sonali Us HOUSEKEEPER CLEANING COOKING RECREATIONAL THERAPY AIDE LAB - BLOOD ORDERABLES Performing Organization Address City/State/ZIP Code Phon e Number M [facility] [address] [address] [facility] [address] [address], [facility] [phone] documented in this encounter Visit Diagnoses Diagnosis Early stage of - Primary documented in this encounter Additional Health Concerns Assessment Noted Time PHQ-9 Depression Total Score: 19 09/04/2015 7:20 AM CD T documented as of this encounter Care Teams Machine Repairer Relationship Specialty Start Date End Date No Ref-Primary, Physician PCP - General 07/27/15 04/14/20 documented as of this encounter
--- OUTSIDE RECORDS SUMMARY | 2022-08-31 22:26 | XMS_ITS | Encounter Summary ---
:1990 Author Organization [facility] Address [address] [place] [address] Care Team Providers Name Role Phone No Ref-Primary, Physician Primary Care Provider [phone] Holland Thomas MD Primary Care Provider [phone] Encounter Details Date Type Department Care Team Description 05/19/2016 Records - [facility] CONVERSION Provider, Historpancho leblanc Social History Tobacco Use Types Packs/Day [...] documented as of this encounter Care Teams Nutrition Intern Relationship Specialty Start Date End Date No Ref-Primary, Physician PCP - General 07/27/15 04/14/20 Holland Thomas MD PCP - General plant utilities engineer 04/15/20 Tobias RIZVI [address] [place] [address] [id number] documented as of this encounter
--- OUTSIDE RECORDS SUMMARY | 2022-08-31 22:26 | XMS_ITS | Encounter Summary ---
:1990 Author Organization [facility] Address [address] [place] [address] Care Team Providers Name Role Phone No Ref-Primary, Physician Primary Care Provider [phone] Holland Thomas MD Primary Care Provider [phone] Reason for Visit Reason Comments Flank Pain Encounter Details Date Type Department Care Team Description 04/10/2016 Communication - [facility] Centralized Provider, Chiquis guevara Pain [facility] Scheduling Historical [address] [place] [id number] Social History Tobacco Use Types Packs/Day Years [...] documented as of this encounter Care Teams Inspector [employer] Relationship Specialty Start Date End Date No Ref-Primary, Physician PCP - General 07/27/15 04/14/20 Holland Thomas MD PCP - General laboratory monitor [facility] [place] [id number] documented as of this encounter
--- OUTSIDE RECORDS SUMMARY | 2022-08-31 22:26 | XMS_ITS | Encounter Summary ---
:1990 Author Organization [place] Address [facility] [place] [address] Care Team Providers Name Role Phone No Ref-Primary, Physician Primary Care Provider [phone] Reason for Visit Reason Comments Abdominal Pain Shoulder Pain Encounter Details Date Type Department Care Team Description 04/07/[address] [facility] Ras Fernandez LLQ abdomi nal tenderness; [facility] DO Paramjit ; Emergency Room [address] Vaginosis [address] [place] [address] [place] [address] [phone] Social History Tobacco Use Types Packs/Day Years [...] Sig Dispensed Refills Start Date End Date ondansetron (ZOFRAN) 4 MG Take 4 mg by mouth 0 04/11/2016 tablet as needed busPIRone (BUSPAR) 15 MG Take 1 tablet (15 180 tablet 3 04/201504/30/2016 tabletIndications: CAMERON mg) by mouth 2 (generalised anxiety times daily disorder) IBUPROFEN PO Take 400 mg by 0 05/19/20 16 mouth as needed for moderate pain norethindrone-ethinyl Take 1 tablet by 63 tablet 3 12/02/19 16 04/12/2016 estradiol (MICROGESTIN mouth daily 1.530) 1.5-30 MG-MCG per tabletIndications: Aftercare following surgery of the genitourinary system Vit-Fe Take 1 tablet by 0 04/07/201603/2018 Fumarate-FA ( mouth daily COMPLETE) 14-0.4 MG TABS documented as of this encounter ED Notes Ras Fernandez, - 04/07/2016 9:44 AM CDT I am seeing this patient along with FRIDA Mondragon. HPI: The patient is a 25-year-old female, A1, who presents to the ED for evaluation of abdominalpain. Five days ago, the patient took a positive at home test. She called and scheduled anappointment with her OB. Yesterday, she developed LLQ abdominal cramping that radiates into her right shoulder. Later in the day, she developed light pink vaginal spotting. She became concerned about her and presents to the ED for evaluation. Currently, she reports sharp LLQ abdominal pain that 7/10 in severity. She reports nausea, but denies any vomiting, diarrhea, cough, sore throat, fevers, rash, or any other associated injury or complaint. The creation of this record is based on the scribe???s observations of the work being performed by No att. providers found and the provider???s statements to them. It was created on his behalf by Rodolfo Fernandez, a trained registered medical transcriptionist. This document has been checked and approved by the attendingprovider. ROS: Constitutional: Denies fever, chills, weight loss or weakness Eyes: No pain, discharge, redness HENT: Denies sore throat, ear pain, congestion Respiratory: No SOB, wheeze or cough Cardiovascular: No CP, palpitations GI: Has abdominal pain, nausea. Denies vomiting, diarrhea Musculoskeletal: Abdominal pain radiates into right shoulder. Denies any other new muscle/joint pain, swelling or loss of function. Skin: Denies rash, pallor Neurologic: Denies headache, focal weakness or sensory changes All other systems negative unless noted in HPI. Physical Exam: VITAL SIGNS: Visit Vitals ??? BP 114/55 ??? Pulse 60 ??? Temp 98.4 ??F (36.9 ??C) (Oral) ??? Resp 16 ??? LMP 02/29/2016 ??? SpO2 99% General Appearance: Well-appearing, well-nourished, no acute distress Head: Normocephalic, without obvious abnormality, atraumatic Eyes: PERRL, conjunctiva/corneas clear, EOM's intact, ENT: Lips, mucosa, and tongue normal; teeth and gums normal, membranes are moist without pallor Neck: Supple, symmetrical, trachea midline, no adenopathy; Cardio: Regular rate and rhythm, no murmur, rub or gallop, 2+ pulses symmetric in all extremities Pulm: Clear to auscultation bilaterally, respirations unlabored, Abdomen: Soft, mild LLQ abdominal tenderness, bowel sounds active all four quadrants, no rebound or guarding. Extremities: Extremities normal, atraumatic, no cyanosis or edema, full ROM and motor tone intact, bilateral pulses intact upper and lower Skin: Skin warm, dry, no rashes Neuro: Alert and oriented ??3, moving all extremities, no gross sensory defects LABS Pertinent lab results reviewed in chart. Results for orders placed or performed during the hospital encounter of 04/07/16 Wet Prep, Vaginal Result Value Ref Range Yeast Result No yeast seen No yeast seen Trichomonas No Trichomonas seen No Trichomonas seen Clue Cells, Wet Prep Clue cells seen (A) No Clue cells seen Urinalysis-UC if Indicated Result Value Ref Range Color, UA Yellow Colorless, Yellow, Straw, Light Yellow Clarity, UA Clear Clear Glucose, UA Negative Negative Bilirubin, UA Negative Negative Ketones, UA Negative Negative Specific [place], UA 1.025 1.001 - 1.030 Blood, UA Negative Negative pH, UA 6.0 4.5 - 8.0 Protein, UA Negative Negative mg/dL Urobilinogen, UA <2.0 E.U./dL <2.0 E.U./dL, 2.0 E.U./dL Nitrite, UA Negative Negative Leukocytes, UA Negative Negative UPT (lab test) Result Value Ref Range Test, Urine Positive (A) Negative Specific [place], UA 1.025 1.001 - 1.030 HM2 (CBC W/O DIFF) Result Value Ref Range WBC 4.9 4.0 - 11.0 thou/uL RBC 4.28 3.80 - 5.40 mill/uL Hemoglobin 12.9 12.0 - 16.0 g/dL Hematocrit 38.7 35.0 - 47.0 % MCV 91 80 - 100 fL MCH 30.1 27.0 - 34.0 pg MCHC 33.3 32.0 - 36.0 g/dL RDW 12.9 11.0 - 14.5 % Platelets 184 140 - 440 thou/uL MPV 8.1 7.0 - 10.0 fL Basic Metabolic Panel Result Value Ref Range Sodium 139 136 - 145 mmol/L Potassium 3.9 3.5 - 5.0 mmol/L Chloride 111 (H) 98 - 107 mmol/L CO2 22 22 - 31 mmol/L Anion Gap, Calculation 6 5 - 18 mmol/L Glucose 89 70 - 125 mg/dL Calcium 9.1 8.5 - 10.5 mg/dL BUN 13 8 - 22 mg/dL Creatinine 0.72 0.60 - 1.10 mg/dL GFR MDRD Af Amer >60 >60 mL/min/1.73m2 GFR MDRD Non Af Amer >60 >60 mL/min/1.73m2 Hepatic Profile Result Value Ref Range Bilirubin, Total 0.4 0.0 - 1.0 mg/dL Bilirubin, Direct 0.2 <=0.5 mg/dL Protein, Total 7.6 6.0 - 8.0 g/dL Albumin 3.9 3.5 - 5.0 g/dL Alkaline Phosphatase 35 (L) 45 - 120 U/L AST 21 0 - 40 U/L ALT 22 0 - 45 U/L Lipase Result Value Ref Range Lipase 11 0 - 52 U/L HCG, Quant Result Value Ref Range Beta-hCG, Quantitative 890 (H) 0 - 4 mlU/mL RADIOLOGY Us Ob < 14 Weeks With Transvaginal Result Date: 04/07/2016 US OB < 14 WEEKS WITH TRANSVAGINAL 04/07/2016 10:08 AM INDICATION: Early with left lowerquadrant pain. TECHNIQUE: Transabdominal scans were performed. Endovaginal ultrasound was performed to better visualize the embryo. COMPARISON: None. FINDINGS: UTERUS: No intrauterine . Endometrial thickness of 15 mm.. RIGHT OVARY: 3.8 x 2.2 x 3.3, suggestion of a collapsed corpus luteal cystin the right ovary. Normal arterial flow. LEFT OVARY: 3.9 x 2.5 x 2.2. No abnormal masses. Normal arterial flow. CONCLUSION: 1. No intrauterine with slight thickening to the endometrium. 2. No abnormal adnexal masses. 3. Question to early to visualize a gestation. Recommend correlating with quantitativebeta-hCG.. ED COURSE & MEDICAL DECISION MAKING Pertinent Labs and Imagaing reviewed (see chart for details) 25 y.o. female presenting with left lower quadrant abdominal tenderness and known positive pregnancytest. Ultrasound was performed that did not reveal an IUP however did not reveal any adnexal masses or obvious ectopic . Based on the quantitative hCG it is possible that this patient either sp ontaneously aborted or is too early to detect a on ultrasound. Did discuss the patient with her ObGyn, and once the patient follow-up in office, to call later today for an appointment. The ObGyn recommended no treatment for the clue cells seen on the wet prep. This time I believe the patientis stable does not require surgical intervention or other emergent treatment. Her blood type is A+ does not require RhoGAM. Will discharge his plan of follow-up with ObGyn. Return precautions discussed. At the conclusion of the encounter I discussed the results of all of the tests and the disposition. The questions were answered. The patient or family acknowledged understanding and was agreeable with the care plan. I, Ras Fernandez DO, personally performed the services described in this documentation , as scribed by Davina Canchola in my presence, and it is both accurate and complete. FINAL IMPRESSION Final diagnoses: LLQ abdominal tenderness Vaginosis Ras Fernandez DO 04/07/16 1336 Louis Friedman - 04/07/2016 9:17 AM CDT eMERGENCY dEPARTMENT eNCOUnter FINAL ASSESMENT 1. LLQ abdominal tenderness 2. 3. Vaginosis ED COURSE & MEDICAL DECISION MAKING Exam start time: 924 Pertinent Labs & Imaging studies reviewed. (See chart for details) Results for orders placed or performed during the hospital encounter of 04/07/16 Wet Prep, Vaginal Result Value Ref Range Yeast Result No yeast seen No yeast seen Trichomonas No Trichomonas seen No Trichomonas seen Clue Cells, Wet Prep Clue cells seen (A) No Clue cells seen Urinalysis-UC if Indicated Result Value Ref Range Color, UA Yellow Colorless, Yellow, Straw, Light Yellow Clarity, UA Clear Clear Glucose, UA Negative Negative Bilirubin, UA Negative Negative Ketones, UA Negative Negative Specific [place], UA 1.025 1.001 - 1.030 Blood, UA Negative Negative pH, UA 6.0 4.5 - 8.0 Protein, UA Negative Negative mg/dL Urobilinogen, UA <2.0 E.U./dL <2.0 E.U./dL, 2.0 E.U./dL Nitrite, UA Negative Negative Leukocytes, UA Negative Negative UPT (lab test) Result Value Ref Range Test, Urine Positive (A) Negative Specific [place], UA 1.025 1.001 - 1.030 HM2 (CBC W/O DIFF) Result Value Ref Range WBC 4.9 4.0 - 11.0 thou/uL RBC 4.28 3.80 - 5.40 mill/uL Hemoglobin 12.9 12.0 - 16.0 g/dL Hematocrit 38.7 35.0 - 47.0 % MCV 91 80 - 100 fL MCH 30.1 27.0 - 34.0 pg MCHC 33.3 32.0 - 36.0 g/dL RDW 12.9 11.0 - 14.5 % Platelets 184 140 - 440 thou/uL MPV 8.1 7.0 - 10.0 fL Basic Metabolic Panel Result Value Ref Range Sodium 139 136 - 145 mmol/L Potassium 3.9 3.5 - 5.0 mmol/L Chloride 111 (H) 98 - 107 mmol/L CO2 22 22 - 31 mmol/L Anion Gap, Calculation 6 5 - 18 mmol/L Glucose 89 70 - 125 mg/dL Calcium 9.1 8.5 - 10.5 mg/dL BUN 13 8 - 22 mg/dL Creatinine 0.72 0.60 - 1.10 mg/dL GFR MDRD Af Amer >60 >60 mL/min/1.73m2 GFR MDRD Non Af Amer >60 >60 mL/min/1.73m2 Hepatic Profile Result Value Ref Range Bilirubin, Total 0.4 0.0 - 1.0 mg/dL Bilirubin, Direct 0.2 <=0.5 mg/dL Protein, Total 7.6 6.0 - 8.0 g/dL Albumin 3.9 3.5 - 5.0 g/dL Alkaline Phosphatase 35 (L) 45 - 120 U/L AST 21 0 - 40 U/L ALT 22 0 - 45 U/L Lipase Result Value Ref Range Lipase 11 0 - 52 U/L HCG, Quant Result Value Ref Range Beta-hCG, Quantitative 890 (H) 0 - 4 mlU/mL No results found for: ABORH Nurse's notes and vitals reviewed Visit Vitals ??? BP 114/55 ??? Pulse 60 ??? Temp 98.4 ??F (36.9 ??C) (Oral) ??? Resp 16 ??? LMP 02/29/2016 ??? SpO2 99% . Patient with left lower quadrant abdominal cramping ??1 day. Patient with vaginal spotting since earlier today. A1. LNMP 02/29/16 Patient was afebrile otherwise normal vitals. Patient was in no acute distress. Patient declines anypain medications or antinausea medications. Exam today revealed only minimal tenderness to palpationover the left lower quadrant. Abdomen was soft without rebound tenderness or guarding. No flank or CVA tenderness. No midline spinal tenderness without any history of trauma. Patient did state that sheslept on her side wrong and patient awoke with this pain which was not present last night. Currentlyno meningeal signs. Pulse exam revealed mild white discharge with no cervical motion tenderness. No active bleeding. Cervical os was closed. Mild left adnexal tenderness. Labs that show no leukocytosis. HCG 890. Wet prep was positive for clue cells suggesting vaginosis. Remaining labs were unremarkable. Ultrasound today could not visualize gestational sac. No signs of ovarian torsion. Cannot rule out ectopic . Discussed patient with patient's FINANCIAL COMPLIANCE MANAGER physician, Dr. Puente. She is to follow- up in his office on Tuesday. Currently no treatment for vaginosis and will wait patient follows up in his office. Currently no signs of PID, sepsis, bacteremia, or acute abdomen. Plan and all results were discussed Time was taken to answer all questions. Patient understood and was agreeable to treatment plan. Patient given warning signs to return to the ED and was discharged with discharge instructions outlining plan for further care and follow up. Discussed and reviewed with ED attending physician, Dr. Fernandez. CONSULTS Dr. Puente, OB-CHIEF CLINICAL OFFICER MEDICATIONS GIVEN IN ED: Medications acetaminophen tablet 650 mg (TYLENOL) (650 mg Oral Given 04/07/16 1043) PRESCRIPTIONS PROVIDED: New Prescriptions ONDANSETRON (ZOFRAN) 4 MG TABLET Take 1 tablet (4 mg total) by mouth every 6 (six) hours for 4 days. PN CMB#50-[id number]-[id number] ACID ( COMPLETE) 14-400 MG-MCG TAB Take 1 tablet by mouth daily. CHIEF COMPLAINT Chief Complaint Patient presents with ??? Abdominal Pain ??? Shoulder Pain HPI Keyla Porter is a A1 25 y.o. female with LNMP 02/29/2016 with history of endometriosis and right-sided ovarian cysts who presents today to the ED c/o left lower quadrant abdominal pain. Patientstates that she took in a home test recently and found out she was . Patient states that she developed left lower quadrant abdominal [id number] sharp cramping yesterday afternoon. No radiation the pain. Patient states the pain is episodic and comes and goes. Patient also complaining of mild vaginal spotting earlier this morning without clots or abnormal discharge. Also complaining of right lower back pain which radiates up into her right shoulder. No urinary symptoms. No constipation or diarrhea. Patient having nausea without emesis. Denies history of STDs. Patient with history of abdominal laparoscopy for her endometriosis in the past. No chest pain, shortness of breath, dyspnea. No headache or neck pain. Patient has a history of smoking but is currently quitting. No vitamins. REVIEW OF SYSTEMS Constitutional: Denies fever, chills, weight loss or weakness Eyes: Denies photophobia, blurry vision, or discharge. HENT: Denies headache, sore throat or ear pain Respiratory: Denies cough, dyspnea, or shortness of breath Cardiovascular: Denies chest pain, palpitations or swelling GI: Denies vomiting, diarrhea, or dark, bloody stools. +abdominal pain, nausea Musculoskeletal: Denies any new muscle/joint pain. Skin: Denies rash Neurologic: Denies focal weakness or sensory changes Endocrine: Denies polyuria or polydypsia, no bleeding troubles, and no troubles fighting infection. Lymphatic: Denies swollen glands Psychiatric: Denies depression, anxiety, suicidal ideation, or homicidal ideation All systems negative except as marked. PAST MEDICAL HISTORY Past Medical History Diagnosis Date ??? Endometriosis SURGICAL HISTORY No past surgical history on file. CURRENT MEDICATIONS Patient's Medications New Prescriptions ONDANSETRON (ZOFRAN) 4 MG TABLET Take 1 tablet (4 mg total) by mouth every 6 (six) hours for 4 days. PNV CMB#40-[id number] ACID ( COMPLETE) 14-400 MG-MCG TAB Take 1 tablet by mouth daily. Previous Medications No medications on file Modified Medications No medications on file Discontinued Medications HYDROCODONE-ACETAMINOPHEN 5-325 MG PER TABLET 1-2 tablets by mouth every 6 hours as needed for pain ALLERGIES Allergies Allergen Reactions ??? Morphine FAMILY HISTORY No family history on file. SOCIAL HISTORY History Social History ??? Marital status: Single Spouse name: N/A ??? Number of children: N/A ??? Years of education: N/A Social History Main Topics ??? Smoking status: Current Every Day Smoker ??? Smokeless tobacco: Not on file ??? Alcohol use: Not on file ??? Drug use: Not on file ??? Sexual activity: Yes control/ protection: IUD Other Topics Concern ??? Not on file Social History Narrative PHYSICAL EXAM VITAL SIGNS: Visit Vitals ??? BP 114/55 ??? Pulse 60 ??? Temp 98.4 ??F (36.9 ??C) (Oral) ??? Resp 16 ??? LMP 02/29/2016 ??? SpO2 99% Patient Vitals for the past 24 hrs: BP Temp Temp src Pulse Resp SpO2 04/07/16 1043 - - - 60 - 99 % 04/07/16 1041 114/55 - - - - - 04/07/16 1027 100/56 - - (!) 56 - 98 % 04/07/16 0908 115/72 98.4 ??F (36.9 ??C) Oral 69 16 98 % Constitutional: Well developed, Well nourished, alert, awake, in NAD, not ill- appearing, nontoxic, Head: Normocephalic. GCS 15 Eyes: No icterus, scleral injection, or conjunctival injection. PERRL Chest: Nontender without swelling, bruising, or deformity Neck/Back: No midline CTLS spine TTP. +right lumbar and thoracic paraspinal muscle tenderness without spasm. No swelling, bruising, or deformity. Full active range of motion of neck and back. No meningeal signs. Respiratory: Regular rhythm. No respiratory distress. Normal breath sounds with lungs clear to auscultation bilaterally. Cardiovascular: RRR without murmur, gallops or rubs. S1 and S2 normal. GI: Bowel sounds normal. Soft. +minimal LLQ without rebound or guarding noted. Negative Cruz's sign. No organomegaly. No flank tenderness : External genitalia appear normal. No masses or lesions. No discharge. No CVA tenderness. Pulses/Vascular: Radial pulses equal bilaterally with good cap refill in fingers. Musculoskeletal: No antalgic gait noted. No assisted device used for ambulation. FAROM of all extremities with good muscle strength. Integument: Skin is warm and dry with no lesions, bruising, erythema, or rash observed. Neurologic: Alert & oriented x 3, Normal motor function, Normal sensory function, No focal deficits noted. Speech normal. Psychiatric: Affect normal, Mood normal, Judgement normal. RADIOLOGY Results read and images reviewed. Us Ob < 14 Weeks With Transvaginal Result Date: 04/07/2016 US OB < 14 WEEKS WITH TRANSVAGINAL 04/07/2016 10:08 AM INDICATION: Early with left lowerquadrant pain. TECHNIQUE: Transabdominal scans were performed. Endovaginal ultrasound was performed to better visualize the embryo. COMPARISON: None. FINDINGS: UTERUS: No intrauterine . Endometrial thickness of 15 mm.. RIGHT OVARY: 3.8 x 2.2 x 3.3, suggestion of a collapsed corpus luteal cystin the right ovary. Normal arterial flow. LEFT OVARY: 3.9 x 2.5 x 2.2. No abnormal masses. Normal arterial flow. CONCLUSION: 1. No intrauterine with slight thickening to the endometrium. 2. No abnormal adnexal masses. 3. Question to early to visualize a gestation. Recommend correlating with quantitativebeta-hCG.. PROCEDURES Informed consent obtained. Discussed risks, benefits, and alternatives. Time out conducted. Pelvic Exam: A female nurse was in attendance for the exam. The external genitalia reveals normal urethra and labia. Normal vaginal mucosa with no significant bleeding. +mild white discharge. No CMT. Left adnexa mildly tender to palpation. Uterus is normal size. Os is closed. Harley Gonzalez PA-C, personally performed the services described in this documentation. Louis Friedman PA-C 04/07/16 1380 documented in this encounter Plan of Treatment Not on filedocumented as of this encounter Procedures Procedure Name Priority Date/Time Associated Comments Diagnosis US OB <14 WEEKS WITH Routine 04/07/2016 10:08 Res ults for this TRANSVAGINAL SINGLE AM CDT procedur e are in the results section. documented in this encounter Results US OB <14 Weeks w Transvaginal Single (04/07/2016 10:08 AM CDT) Anatomical Region Laterality Modality Abdomen/Pelvis Other Specimen (Source) Anatomical Location Collection Method / Collectio n Time Received Time / Laterality Volume Impressions 04/07/2016 10:16 AM CDT CONCLUSION: 1. ??No intrauterine with slig ht thickening to the endometrium. 2. ??No abnormal adnexal masses. 3. ??Question to early to visualize a ge station. Recommend correlating with quantitative beta-hCG.. Narrative 04/07/2016 10:16 AM CDT US OB < 14 WEEKS WITH TRANSVAGINAL 04/07/2016 10:08 AM INDICATION: Early with left lo wer quadrant pain. TECHNIQUE: Transabdominal scans were per formed. Endovaginal ultrasound was performed to better visualize the embryo. COMPARISON: None. FINDINGS: UTERUS: No intrauterine . Endom etrial thickness of 15 mm.. RIGHT OVARY: 3.8 x 2.2 x 3.3, suggestion of a collapsed corpus luteal cyst in the right ovary. Normal arterial flow. LEFT OVARY: 3.9 x 2.5 x 2.2. No abnormal masses. Normal arterial flow. Procedure Note Sha Hsu - 04/26/2021Formatting o f this note might be different from the original. US OB < 14 WEEKS WITH TRANSVAGINAL 04/07/2016 10:08 AM INDICATION: Early with left lo wer quadrant pain. TECHNIQUE: Transabdominal scans were per formed. Endovaginal ultrasound was performed to better visualize the embryo. COMPARISON: None. FINDINGS: UTERUS: No intrauterine . Endom etrial thickness of 15 mm.. RIGHT OVARY: 3.8 x 2.2 x 3.3, suggestion of a collapsed corpus luteal cyst in the right ovary. Normal arterial flow. LEFT OVARY: 3.9 x 2.5 x 2.2. No abnormal masses. Normal arterial flow. IMPRESSION: CONCLUSION: 1. No intrauterine with slight thickening to the endometrium. 2. No abnormal adnexal masses. 3. Question to early to visualize a gest ation. Recommend correlating with quantitative beta-hCG.. Louis Friedman PA-C IMG US ORDERABLES documented in this encounter Visit Diagnoses Diagnosis LLQ abdominal tenderness Abdominal tenderness, left lower quadran t Vaginosis Vaginitis and vulvovaginitis, unspecifie d documented in this encounter Additional Health Concerns Assessment Noted Time PHQ-9 Depression Total Score: 19 09/04/2015 7:20 AM CD T documented as of this encounter Care Teams Drafter Geological Relationship Specialty Start Date End Date No Ref-Primary, Physician PCP - General 07/27/15 04/14/20 documented as of this encounter
--- OUTSIDE RECORDS SUMMARY | 2022-08-31 22:26 | XMS_ITS | Encounter Summary ---
:1990 Author Organization [place] Address [address] [place] [address] Care Team Providers Name Role Phone No Ref-Primary, Physician Primary Care Provider [phone] Reason for Visit Reason Comments Abdominal Pain Encounter Details Date Type Department Care Team Description 06/27/2016 [facility] Rachael-Laney Reed, Abdominal pain [facility] Emergency Room [facility] [address] [address] [place] [address] [phone] Social History Tobacco Use Types Packs/Day Years [...] - - Weight 68 kg (150 lb) 06/27/2016 6:27 AM CDT Height 167.6 cm (5' 6) 06/27/2016 6:27 AM CDT Body Mass Index 24.21 06/27/2016 6:27 AM CDT documented in this encounter Medications at Time of Discharge Medication Sig Dispensed Refills Start Date End Date Vit-Fe Take 1 tablet by 0 04/07/201603/2018 Fumarate-FA ( mouth daily COMPLETE) 14-0.4 MG TABS documented as of this encounter ED Notes Laney Amaya MD - 06/27/2016 7:10 AM CDT eMERGENCY dEPARTMENT eNCOUnter CHIEF COMPLAINT Chief Complaint Patient presents with ??? Abdominal Pain HPI Keyla Porter is a 25 y.o. female who presents to the ED for evaluation of abdominal pain that started a couple hours ago when she woke up. She describes her pain as sharp, constant, located in herupper abdomen, radiates to her right back, it is not relieved or exacerbated by any particular activity. She has nausea but no vomiting. She has had normal bowel movements. She denies any dysuria, urgency, or frequency. The patient is 16 weeks . PAST MEDICAL HISTORY Past Medical History Diagnosis Date ??? Endometriosis SURGICAL HISTORY Reviewed surgical history and nothing pertient CURRENT MEDICATIONS Discharge Medication List as of 06/27/2016 7:20 AM CONTINUE these medications which have NOT CHANGED Details PNV cmb#[id number] acid ( COMPLETE) 14-400 mg-mcg Tab Take 1 tablet by mouth daily., Starting 04/07/2016, Until Discontinued, Print Reviewed and nothing pertinent. ALLERGIES Allergies Allergen Reactions ??? Morphine SOCIAL HISTORY reports that she has been smoking. She does not have any smokeless tobacco history on file. REVIEW OF SYSTEMS Constitutional: Denies fever, chills, excessive weight loss Eyes: Denies any vision changes HENT: Denies sore throat. Respiratory: Denies productive cough or shortness of breath Cardiovascular: Denies chest pain or palpitations GI: abdominal pain, nausea : Denies hematuria or dysuria. Musculoskeletal: Denies any new muscle/joint pain. Skin: Denies rash Neurologic: Denies headache, focal weakness or sensory changes Psych: Mood and affect normal All systems negative except as marked. PHYSICAL EXAM VITAL SIGNS: Visit Vitals ??? BP 148/76 (Patient Position: Sitting) ??? Pulse 78 ??? Temp 98 ??F (36.7 ??C) (Oral) ??? Resp 18 ??? Ht 5' 6 (1.676 m) ??? Wt 150 lb (68 kg) ??? LMP 02/29/2016 ??? SpO2 96% ??? BMI 24.21 kg/m2 Constitutional: Awake, alert, in mild distress HENT: Normocephalic, Atraumatic, Bilateral external ears normal, Oropharynx moist, Nose normal. Neck- Normal range of motion, No tenderness, Supple, No stridor. Eyes: PERRL, EOMI, Conjunctiva normal, No discharge. Respiratory: Normal breath sounds, No respiratory distress, No wheezing Cardiovascular: Normal heart rate, Normal rhythm, No appreciable rubs or gallops. GI: Soft, diffuse tenderness, No distension, No palpable masses Musculoskeletal: Intact distal pulses, No edema. Good range of motion in all major joints. No tenderness to palpation or major deformities noted. Integument: Warm, Dry, No erythema, No rash. Neurologic: Alert & oriented, Normal motor function, Normal sensory function, No focal deficits noted. Psychiatric: Affect normal, Judgment normal, Mood normal. LABS Results for orders placed or performed during the hospital encounter of 06/27/16 Comprehensive metabolic panel Result Value Ref Range Sodium 135 (L) 136 - 145 mmol/L Potassium 3.8 3.5 - 5.0 mmol/L Chloride 104 98 - 107 mmol/L CO2 20 (L) 22 - 31 mmol/L Anion Gap, Calculation 11 5 - 18 mmol/L Glucose 89 70 - 125 mg/dL BUN 10 8 - 22 mg/dL Creatinine 0.60 0.60 - 1.10 mg/dL GFR MDRD Af Amer >60 >60 mL/min/1.73m2 GFR MDRD Non Af Amer >60 >60 mL/min/1.73m2 Bilirubin, Total 0.4 0.0 - 1.0 mg/dL Calcium 8.8 8.5 - 10.5 mg/dL Protein, Total 6.8 6.0 - 8.0 g/dL Albumin 3.3 (L) 3.5 - 5.0 g/dL Alkaline Phosphatase 32 (L) 45 - 120 U/L AST 26 0 - 40 U/L ALT 23 0 - 45 U/L Lipase Result Value Ref Range Lipase 8 0 - 52 U/L HM1 (CBC with Diff) Result Value Ref Range WBC 6.2 4.0 - 11.0 thou/uL RBC 3.36 (L) 3.80 - 5.40 mill/uL Hemoglobin 10.6 (L) 12.0 - 16.0 g/dL Hematocrit 30.6 (L) 35.0 - 47.0 % MCV 91 80 - 100 fL MCH 31.5 27.0 - 34.0 pg MCHC 34.6 32.0 - 36.0 g/dL RDW 13.6 11.0 - 14.5 % Platelets 184 140 - 440 thou/uL MPV 7.6 7.0 - 10.0 fL Neutrophils % 78 (H) 50 - 70 % Lymphocytes % 15 (L) 20 - 40 % Monocytes % 7 2 - 10 % Eosinophils % 0 0 - 6 % Basophils % 0 0 - 2 % Neutrophils Absolute 4.9 2.0 - 7.7 thou/uL Lymphocytes Absolute 0.9 0.8 - 4.4 thou/uL Monocytes Absolute 0.4 0.0 - 0.9 thou/uL Eosinophils Absolute 0.0 0.0 - 0.4 thou/uL Basophils Absolute 0.0 0.0 - 0.2 thou/uL ED COURSE & MEDICAL DECISION MAKING Unclear etiology of patient's abdominal pain. Her pain could be secondary to biliary colic. Her liver function tests and lipase are normal. I think she can follow-up as an outpatient for ultrasound testing of her gallbladder. Her pain is improved in the emergency department. FINAL IMPRESSION 1. Abdominal pain Laney Amaya MD 07/20/16 0218 documented in this encounter Plan of Treatment Not on filedocumented as of this encounter Visit Diagnoses Diagnosis Abdominal pain Abdominal pain, unspecified site documented in this encounter Additional Health Concerns Assessment Noted Time PHQ-9 Depression Total Score: 19 09/04/2015 7:20 AM CD T documented as of this encounter Care Teams Boiler Shop Mechanic Relationship Specialty Start Date End Date No Ref-Primary, Physician PCP - General 07/27/15 04/14/20 documented as of this encounter
--- OUTSIDE RECORDS SUMMARY | 2022-08-31 22:26 | XMS_ITS | Encounter Summary ---
:1990 Author Organization [place] Address [facility] [place] [address] Care Team Providers Name Role Phone No Ref-Primary, Physician Primary Care Provider [phone] Reason for Visit Reason Comments Surgical Followup Encounter Details Date Type Department Care Team Description 12/02/2015 Office Visit [facility] Orion Puente, Raul tercare following AND SURGERY CINDI WAYNE surgery of the BLACKSMITH HAMMER OPERATOR [address] genitourinary system [address] (Primary Dx) [address] [place] [address] [place] [address] Social History Tobacco Use Types Packs/Day [...] Sign Reading Time Taken Comments Blood Pressure 110/62 12/02/2015 4:46 PM EMERGENCY WORKER Pulse - - Temperature - - Respiratory Rate - - Oxygen Saturation - - Inhaled Oxygen Concentration - - Weight 65.8 kg (145 lb) 12/02/2015 4:46 PM EMERGENCY WORKER Height 170.2 cm (5' 7) 12/02/2015 4:46 PM EMERGENCY WORKER Body Mass Index 22.71 12/02/2015 4:46 PM EMERGENCY WORKER documented in this encounter Progress Notes Orion Puente MD - 12/02/2015 4:53 PM CST The patient is seen for follow-up of a laparoscopy with treatment of endometriosis on her ovaries and tubes and removal of a lost IUD. Her examination is unremarkable. The patient needs something for suppression and we will call in some continuous low-dose Microgestin. We have asked her to return to see us in 3 months. GENCY WORKER documented in this encounter Nursing Notes Pamela Arceo - 12/02/2015 4:46 PM CST Chief Complaint Patient presents with ??? Surgical Followup Initial BP 110/62 mmHg Ht 5' 7 (1.702 m) Wt 145 lb (65.772 kg) BMI 22.71 kg/m2 Estimated bodymass index is 22.71 kg/(m^2) as calculated from the following: Height as of this encounter: 5' 7 (1.702 m). Weight as of this encounter: 145 lb (65.772 kg). BP completed using cuff size: carla Arceo MA GENCY WORKER documented in this encounter Plan of Treatment Not on filedocumented as of this encounter Procedures Procedure Name Priority Date/Time Associated Diagnosis Comme nts HEMOGLOBIN Routine 12/02/2015 4:48 PM Aftercare following Re sults for this EMERGENCY WORKER surgery of the procedure are in genitourinary system the res ults section. documented in this encounter Results (ABNORMAL) Hemoglobin (12/02/2015 4:48 PM EMERGENCY WORKER) P athologist Signature Hemoglobin 11.4 (L) 11.7 - 15.7 [place] g/dL [facility] Specimen Anatomical Collection Method Collection Time Receive d Time (Source) Location / / Volume Laterality Blood specimen 12/02/2015 4:48 PM 016 4:49 (specimen) EMERGENCY WORKER PM EMERGENCY WORKER Orion Puente MD LAB - BLOOD ORDERABLES Performing Organization Address City/State/ZIP Code Phon e Number [place] [facility] documented in this encounter Visit Diagnoses Diagnosis Aftercare following surgery of the genit ourinary system - Primary Aftercare following surgery of the genit ourinary system, NEC documented in this encounter Additional Health Concerns Assessment Noted Time PHQ-9 Depression Total Score: 19 09/04/2015 7:20 AM CD T documented as of this encounter Care Teams Indirect Fire Infantryman Relationship Specialty Start Date End Date No Ref-Primary, Physician PCP - General 07/27/15 04/14/20 documented as of this encounter
--- OUTSIDE RECORDS SUMMARY | 2022-08-31 22:26 | XMS_ITS | Encounter Summary ---
:1988 Author Organization [place] Address [facility] [place] [address] Care Team Providers Name Role Phone No Ref-Primary, Physician Primary Care Provider [phone] Reason for Visit Auth/Cert - Closed Specialty Diagnoses / Procedures Referred By Contact Refer red To Contact Surgery Diagnoses PELVIC PAIN, LOST IUD Sh Periop Services Procedures LASER CO2 LAPAROSCOPIC VAPORIZATION ENDOMETRIUM OPERATIVE HYSTEROSCOPY [address] [place] [address] Phone: Referral ID Status Reason Start Date Expiration Date Visits Requ ested Visits Authorized [id number] Closed 1 1 Encounter Details Date Type Department Care Team Description 11/13/2015 Anesthesia Event M [facility] Kasandra White MD [facility] PeriOP [address] S Services [place] [address] [facility] [place] [address] Anesthesia Record Procedure Summary Procedure Name Responsible Anesthesia Start Anesthesia Stop Anesthesiologist Time Time HYSTEROSCOPY, DILATION Deepak White MD 11/13/15 0832 0919 AND CURETTAGE, LAPAROSCOPIC C02 LASER VAPORIZATION OF ENDOMETRIOSIS AND LYSIS OF PELVIC ADHESIONS (Abdomen) Events Date Time Event Comment 11/13/2015 0644 0832 An Start 0832 An Start Data 0835 An Induction 0837 An Intubation 0843 AN INCISION 0915 AN Extubation 0915 an stop data 0919 An Stop Electronically s igned by Olga Anderson on November 13 9:19 AM Name Total dexamethasone 4mg/mL 4 mg fentanyl 50mcg/mL 200 mcg glycopyrrolate 0.2mg/mL 0.4 mg ketorolac 30mg/mL 30 mg lidocaine 2% 40 mg midazolam 1mg/mL 2 mg neostigmine 1mg/mL 3 mg ondansetron 2mg/mL 4 mg propofol 10mg/mL 200 mg propofol infusion (mcg/kg/min) 355.32 mg rocuronium 10mg/mL 30 mg No abx ordered pre-op 1 each LR 500 mL Agents Name O2 N2O Air Blood No blood administrations on file. Lines, Drains, and Airways Type Details Placement Removal Incision/Surgical Site 11/13/15; 0856; 11/13/15 0856 by Abdomen; PORT SITES X Zaida Hearn, 2 RN Peripheral IV 11/13/15; 0832; 20 G; 11/13/15 0832 by 11/13/15 1127 by Left; Hand; Tolerated Olga Anderson Albe rto, CHADWICK Crowe APRN CRNA RETIRED ETT 11/13/15; 0837; Mask 11/13/15 0837 by 11/13/15 0 915 by Ventilation: Easy; Olga Anderson Sh anon Ease of Intubation: DIANA Crowe CRNA, APRN C RNA Easy; Airway Size: 7; Cuffed; Oral; Blade Type: Guzman; Blade Size: 2; Place by: Gopi Oneill CRNA; Insertion Attempts: 1; Secured at (cm)to lip: 22 cm; Breath Sounds: Equal, clear and bilateral; End Tidal CO2: Present; Dentition: Intact; Grade View of Cords: 1 Urethral Catheter 11/13/15; 0843; No; 11/13/15 0843 by 11/13/15 0905 by /GI/OUTBOARD SYSTEM OPERATOR Pelvic Zaida Hearn, Zaida Hearn, Procedure; 16 fr RN RN documented in this encounter Social History Tobacco Use Types Packs/Day Years Used Date Smoking Tobacco: Every Day Cigarettes 0.1 Smokeless Tobacco: Never Comments: smoking 10cig/day- down to 1-2 with Alcohol Use Standard Drinks/Week Comments No 0 (1 standard drink = 0.6 oz pure alcoho l) Sex Assigned at Date Recorded Not on file documented as of this encounter OR Notes Anesthesia Postprocedure Evaluation - Deepak White MD - 11/13/2015 9:23 AM CST Patient: Keyla Porter LASER CO2 LAPAROSCOPIC VAPORIZATION ENDOMETRIUM (N/A Abdomen) COMBINED DILATION AND CURETTAGE, OPERATIVE HYSTEROSCOPY (N/A Vagina) Additional InformationProcedure(s): HYSTEROSCOPY, DILATION AND CURETTAGE, LAPAROSCOPIC C02 LASER VAPORIZATION OF ENDOMETRIOSIS AND LYSISOF PELVIC ADHESIONS Diagnosis:PELVIC PAIN, LOST IUD Diagnosis Additional Information: No value filed. Anesthesia Type: General Note: Anesthesia Post Evaluation Patient location during evaluation: PACU Patient participation: Able to fully participate in evaluation Level of consciousness: awake Pain management: adequate Airway patency: patent Anesthetic complications: no Cardiovascular status: acceptable Respiratory status: acceptable Hydration status: acceptable PONV: controlled Last vitals: Filed Vitals: 11/13/15 0747 BP: 118/70 Temp: 36.7 ??C (98 ??F) SpO2: 98% Electronically Signed By: Deepak White MD November 13, 2015 9:23 AM L OPERATOR PNEUMATIC Anesthesia Preprocedure Evaluation - Deepak White MD - 11/13/2015 6:43 AM CST Anesthesia Evaluation . Pt has had prior anesthetic. Type: General ROS/MED HX ENT/Pulmonary: Neurologic: (+)migraines, Cardiovascular: METS/Exercise Tolerance: Hematologic: Musculoskeletal: GI/Hepatic: Renal/Genitourinary: Endo: Psychiatric: (+) psychiatric history anxiety and depression Infectious Disease: Malignancy: Other: Anesthesia Plan ASA Score: 2 . Plan for General - with Propofol induction. Maintenance will be TIVA. Anesthetic plan, risks, benefits and alternatives discussed with: patient or marketing representative. Routine analgesia and antiemetics . Propofol, Zofran, and decadron History & Physical Review History and physical reviewed and following examination; no interval change. . L OPERATOR PNEUMATIC documented in this encounter Miscellaneous Notes Anesthesia Care Transfer Note - Olga Anderson APRN CRNA - 11/13/2015 9:18 AM CST Patient: Keyla Porter LASER CO2 LAPAROSCOPIC VAPORIZATION ENDOMETRIUM (N/A Abdomen) COMBINED DILATION AND CURETTAGE, OPERATIVE HYSTEROSCOPY (N/A Vagina) Additional Information@[email or web address]@ Diagnosis: PELVIC PAIN, LOST IUD Diagnosis Additional Information: No value filed. Anesthesia Type: General Note: Airway :Face Mask Patient transferred to:PACU Comments: spontaneouis resp., vsdsd Electronically Signed By: Olga Anderson APRN CRNA November 13, 2015 9:18 AM L OPERATOR PNEUMATIC documented in this encounter Plan of Treatment Not on filedocumented as of this encounter Visit Diagnoses Not on filedocumented in this encounter Administered Medications Inactive Administered Medications - up to 3 most recent administrations Medication Order MAR Action Action Date Dose Rate Site dexamethasone (DECADRON) injection Given 11/13/2015 8:39 AM DRILL OPERATOR PNEUMATIC 4 mg PRN, Administer over 1-4 Minutes, Starting on Marizol 11/13/15 at 0839, Anesthesia Intra-op fentaNYL (SUBLIMAZE) injection Given 11/13/2015 8:57 AM DRILL OPERATOR PNEUMATIC 50 mcg PRN, moderate to severe pain, Starting on Marizol 11/13/15 at 0835, Anesthesia Intra-op Given 11/13/2015 8:51 AM DRILL OPERATOR PNEUMATIC 50 mcg Given 11/13/2015 8:42 AM DRILL OPERATOR PNEUMATIC 50 mcg glycopyrrolate (ROBINUL) injection Given 11/13/2015 9:01 AM DRILL OPERATOR PNEUMATIC 0.4 mg PRN, Starting on Marizol 11/13/15 at 0901, Anesthesia Intra-op ketorolac (TORADOL) injection Given 11/13/2015 9:00 AM DRILL OPERATOR PNEUMATIC 30 mg PRN, moderate pain, Starting on Marizol 11/13/15 at 0900, Anesthesia Intra-op lactated ringers infusion New Bag 11/13/2015 8:32 AM DRILL OPERATOR PNEUMATIC Intravenous, CONTINUOUS PRN, Anesthesia Intra-op, Starting on Marizol 11/13/15 at 0832, Until Marizol 11/13/15 at 0919 lidocaine injection 2% (MDV) Given 11/13/2015 8:35 AM DRILL OPERATOR PNEUMATIC 40 mg PRN, Starting on Marizol 11/13/15 at 0835, Anesthesia Intra-op midazolam (VERSED) injection Given 11/13/2015 8:34 AM DRILL OPERATOR PNEUMATIC 2 mg PRN, anxiety, Starting on Marizol 11/13/15 at 0834, Anesthesia Intra-op neostigmine (PROSTIGMINE) injection Given 11/13/2015 9:01 AM DRILL OPERATOR PNEUMATIC 3 mg Intravenous, PRN, Starting on Marizol 11/13/15 at 0901, Anesthesia Intra-op No abx ordered pre-op Given 11/13/2015 8:40 AM DRILL OPERATOR PNEUMATIC 1 each PRN, Starting on Marizol 11/13/15 at 0840, Until Marizol 11/13/15 at 0919, Anesthesia Intra-op ondansetron (ZOFRAN) injection Given 11/13/2015 9:01 AM DRILL OPERATOR PNEUMATIC 4 mg PRN, nausea, vomiting, Administer over 2-5 Minutes, Starting on Marizol 11/13/15 at 0901, Anesthesia Intra-op propofol (DIPRIVAN) infusion New Bag 11/13/2015 8:35 AM 200 mcg/kg/min 79 mL/hr Intravenous, CONTINUOUS PRN, DRILL OPERATOR PNEUMATIC Starting on Marizol 11/13/15 at 0835, Anesthesia Intra-op propofol (DIPRIVAN) injection 10 mg/mL v ial Given 11/13/2015 8:35 AM DRILL OPERATOR PNEUMATIC 200 mg PRN, Starting on Marizol 11/13/15 at 0835, Anesthesia Intra-op rocuronium (ZEMURON) injection Given 11/13/2015 8:35 AM DRILL OPERATOR PNEUMATIC 30 mg PRN, Starting on Marizol 11/13/15 at 0835, Anesthesia Intra-op documented in this encounter Additional Health Concerns Assessment Noted Time PHQ-9 Depression Total Score: 19 09/04/2015 7:20 AM CD T documented as of this encounter Care Teams Grants Officer Relationship Specialty Start Date End Date No Ref-Primary, Physician PCP - General 07/27/15 04/14/20 documented as of this encounter
--- OUTSIDE RECORDS SUMMARY | 2022-08-31 22:26 | XMS_ITS | Encounter Summary ---
:1990 Author Organization [facility] Address [address] [place] [address] Care Team Providers Name Role Phone No Ref-Primary, Physician Primary Care Provider [phone] Holland Thomas MD Primary Care Provider [phone] Reason for Visit Reason Comments Other SKY Encounter Details Date Type Department Care Team Description 07/08/2016 [facility] Spencer Daniels [facility] [address] [address] [place], [place] [id number] Other (SKY) [facility] Midwifery Provider, Historical Patient Access [address] [place] [address] Social History Tobacco Use Types [...] documented as of this encounter Care Teams Drug And Alcohol Counselor Relationship Specialty Start Date End Date No Ref-Primary, Physician PCP - General 07/27/15 04/14/20 Holland Thomas MD PCP - General plug stitcher 04/15/[address] [place] [address] documented as of this encounter
--- OUTSIDE RECORDS SUMMARY | 2022-08-31 22:26 | XMS_ITS | Encounter Summary ---
:1990 Author Organization [facility] Address [address] [place] [address] Care Team Providers Name Role Phone No Ref-Primary, Physician Primary Care Provider [phone] Holland Thomas MD Primary Care Provider [phone] Encounter Details Date Type Department Care Team Description 07/28/2016 [facility] [address] [address] [place], [place] [address] [facility] Services - Womens and Provider, Historical Child Service Line [address] [place] [address] Social History Tobacco Use Types Packs/Day [...] documented as of this encounter Care Teams Artistic Director Relationship Specialty Start Date End Date No Ref-Primary, Physician PCP - General 07/27/15 04/14/20 Holland Thomas MD PCP - General machine tailer 04/15/[address] [place] [address] documented as of this encounter
--- OUTSIDE RECORDS SUMMARY | 2022-08-31 22:26 | XMS_ITS | Encounter Summary ---
:1990 Author Organization [place] Address [address] [place] [address]. [place] [address] Care Team Providers Name Role Phone No Ref-Primary, Physician Primary Care Provider [phone] Reason for Visit Reason Comments RECHECK review ultrasound results Encounter Details Date Type Department Care Team Description 04/30/2016 Office Visit [facility] Orion Puente, Inés egnancy examination AND SURGERY CINDI WAYNE or test, LAYAWAY CLERK [address] unconfirmed (Primary [address] Dx) [address] [place] [address] [place] [id number] Social History Tobacco Use Types Packs/Day Years [...] Sign Reading Time Taken Comments Blood Pressure 104/62 04/30/2016 2:55 PM CDT Pulse - - Temperature - - Respiratory Rate - - Oxygen Saturation - - Inhaled Oxygen Concentration - - Weight 63.5 kg (140 lb) 04/30/2016 2:55 PM CDT Height - - Body Mass Index 21.93 04/12/2016 2:51 PM CDT documented in this encounter Progress Notes Orion Puente MD - 04/30/2016 3:09 PM CDT Patient is seen as follow-up of a ultrasound to confirm any intrauterine . She has had no pain or bleeding and ultrasound showed positive heart tones at 7-1/2 weeks. She will return for present first visit and then transfer care to a radiology technician service at [facility]. documented in this encounter Plan of Treatment Not on filedocumented as of this encounter Visit Diagnoses Diagnosis examination or test, unconfirmed - Primary documented in this encounter Additional Health Concerns Assessment Noted Time PHQ-9 Depression Total Score: 19 09/04/2015 7:20 AM CD T documented as of this encounter Care Teams Buffing Turner And Counter Relationship Specialty Start Date End Date No Ref-Primary, Physician PCP - General 07/27/15 04/14/20 documented as of this encounter
--- OUTSIDE RECORDS SUMMARY | 2022-08-31 22:26 | XMS_ITS | Encounter Summary ---
:[address] [facility] Address [address] [place] [address] Care Team Providers Name Role Phone No Ref-Primary, Physician Primary Care Provider [phone] Reason for Visit Auth/Cert - Closed Specialty Diagnoses / Procedures Referred By Contact Refer red To Contact Surgery Diagnoses PELVIC PAIN, LOST IUD Sh Periop Services Procedures LASER CO2 LAPAROSCOPIC VAPORIZATION ENDOMETRIUM OPERATIVE HYSTEROSCOPY [address] [place] [address] Phone: Referral ID Status Reason Start Date Expiration Date Visits Requ ested Visits Authorized [id number] Closed 1 1 Encounter Details Date Type Department Care Team Description 11/13/2015 [facility] Orion Freitas HY[facility], Services [address] LAPAROSCOPIC C02 LASER [address], [address] VAPOR[address] OF [address] [place] [address] ENDOMETRIOSIS AND LYSIS [place] [address] OF PELVIC ADHESIONS Surgery Details Date/Time Status Location OR Service Patient Case Case Traum a Class Class Type Case? 11/13/15 8:50 Posted Z SH SD SD 21 Laser Same Day AM Gynecology Surgery Panel 1 Procedure LRB Anes Op Region Wound Class Commen ts HYSTEROSCOPY, DILATION N/A General Abdomen II-Clean HY STEROSCOPY, AND CURETTAGE, Contaminated DILATION AND LAPAROSCOPIC C02 LASER CU RETTAGE, VAPORIZATION OF LAPAROSCO PIC C02 ENDOMETRIOSIS AND LASER V APORIZATION OF LYSIS OF PELVIC ENDOMETRI OSIS AND ADHESIONS LYSIS OF PELVI C ADHESIONS Panel 2 Procedure LRB Anes Op Region Wound Class Commen ts HYSTEROSCOPY, WITH DILATION AND N/A General Vagina II-C lean Contaminated CURETTAGE OF UTERUS Surgeon Surgeon Role Service Panel Orion Freitas MD Primary Laser Gynecology 1 Orion Freitas MD Primary Gynecology 2 documented in this encounter Social History Tobacco [...] Sign Reading Time Taken Comments Blood Pressure 101/63 11/13/2015 9:30 AM QUALITY FACILITATOR Pulse - - Temperature 36.2 ??C (97.2 ??F) 11/13/2015 9:17 AM QUALITY FACILITATOR Respiratory Rate 14 11/13/2015 9:30 AM QUALITY FACILITATOR Oxygen Saturation 100% 11/13/2015 9:30 AM QUALITY FACILITATOR Inhaled Oxygen Concentration - - Weight 65.8 kg (145 lb) 11/13/2015 7:47 AM QUALITY FACILITATOR Height 167.6 cm (5' 6) 11/13/2015 7:47 AM QUALITY FACILITATOR Body Mass Index 23.4 11/13/2015 7:47 AM QUALITY FACILITATOR documented in this encounter Discharge Instructions Discharge InstructionsDon Mccabe RN - 11/13/2015 9:13 AM CST HOME CARE FOLLOWING LAPAROSCOPY Dr. Freitas, Dr. Gallegos, Dr. Colmenares [phone] Diet You have no restrictions on your [...] about your procedure, call Dr. Freitas at [phone] ITY FACILITATOR documented in this encounter Medications at Time [...] Orion Freitas MD - 11/17/2015 12:21 PM QUALITY FACILITATOR Quick Note: Pathology noted, will discuss at post op visit. ITY FACILITATOR Don Mccabe RN - 11/13/2015 11:28 AM CST PNDS met, po per I&O sheet. Pt dressed, up in recliner and transported to Phase 2. ITY FACILITATOR Neville Cooper RN - 11/13/2015 10:53 AM CST Pt develops hives and itch to l FA post Fentanyl IV meds- Dr notified and at bedside- orders for benadryl 25 IV now- being administered by Nurse Gao ITY FACILITATOR Don Mccabe RN - 11/13/2015 9:57 AM CST Patient woke up calm. Surgeon at bedside informing patient that he found the IUD, there was small adhesion and endometriosis; and that her boyfriend has the pictures. ITY FACILITATOR Don Mccabe RN - 11/13/2015 9:48 AM [...] Patient currently resting. Will continue to monitor. ITY FACILITATOR documented in this encounter H&P Notes Meggan Marley - 11/10/2015 10:54 AM CST This note is for the purpose of making the H&P performed in clinic within the last 30 days available in the hospital encounter. ITY FACILITATOR Source Note - Orion Freitas MD - 10/31/2015 3:46 PM QUALITY FACILITATOR The patient is a 25-year-old 1 para [...] laser for evaluationof her pain and dyspareunia. ITY FACILITATOR Orion Freitas MD - 10/31/2015 3:46 PM [...] laser for evaluationof her pain and dyspareunia. ITY FACILITATOR documented in this encounter Miscellaneous Notes Op [...] will be discharged to home and given [place] as needed for pain. She is asked to call for any fever, chills, change in bowel or bladder function. She will return to the office in 2 weeks for a postoperative check. ORION FREITAS JR, MD [place]: [id number] Name: GEORGE PORTER MRN: [id number] Account: [id number] : 1990 Procedure Date: 11/13/2015 Document: [id number] ITY FACILITATOR Brief Op Note - Orion Freitas MD - 11/13/2015 9:13 AM CST [facility] Brief Operative Note Pre-operative diagnosis: PELVIC PAIN, [...] 8:47 AM Pathology Findings: See op note ITY FACILITATOR documented in this encounter Plan of Treatment Not on filedocumented as of this encounter Procedures Procedure Name Priority Date/Time Associated Comments Diagnosis SURGICAL PATHOLOGY Routine 11/13/2015 8:47 AM Res ults for this EXAM QUALITY FACILITATOR procedure are i n the results section. HYSTEROSCOPY, WITH 11/13/2015 8:32 AM PELVIC PAIN, LOS T DILATION AND QUALITY FACILITATOR IUD CURETTAGE OF UTERUS VAPORIZATION, 11/13/2015 8:32 AM PELVIC PAIN, LOST ENDOMETRIOSIS, QUALITY FACILITATOR IUD LAPAROSCOPIC, USING CO2 LASER HCG QUALITATIVE URINE STAT 11/13/2015 7:30 AM Results for this QUALITY FACILITATOR procedure are i n the results section. documented in this encounter Results Surgical pathology exam (11/13/2015 8:47 AM QUALITY FACILITATOR) Component Value Ref Test Analysis Performed At [facility] Method Time Signature Copath Report Patient Name: GEORGE PORTER MR#: [id number] Specimen #: [id number] Collected: 11/13/2015 Received: 11/13/2015 Reported: 11/17/2015 08:41 [...] in one casse tte. (Dictated by: Panfilo Frnaz 11/13/2015 10:43 AM) MICROSCOPIC: Microscopic performed CPT Codes: A: 49598-PS9 TESTING LAB LOCATION: [address] ??[id number] COLLECTION SITE: Client: [facility] Location: SHSDOR (S) Specimen Anatomical Collection Method Collection Time Receive d Time (Source) Location / / Volume Laterality 11/13/2015 8:47 AM 5 QUALITY FACILITATOR 10:24 AM QUALITY FACILITATOR Orion Freitas MD LAB - BEAKER AP Performing Organization Address City/[facility]/ZIP Code Phon e Number COPATH HCG qualitative urine (11/13/2015 7:30 AM QUALITY FACILITATOR) P athologist Signature HCG Qual Urine Negative NEG [facility] Specimen Anatomical Collection Method Collection Time Receive d Time (Source) Location / / Volume Laterality Urine specimen URINE SPECIMEN 11/13/2015 7:30 AM 11/13 7:54 (specimen) OBTAINED BY CLEAN QUALITY FACILITATOR AM QUALITY FACILITATOR CATCH PROCEDURE / Unknown Orion Freitas MD LAB - URINE ORDERABLES Performing Organization Address [facility]/ZIP Code Phon e Number [place] [address] [place] [address] [place] [address] [place] [address], [facility] [phone] documented in this encounter Visit Diagnoses Not on filedocumented in this encounter Administered Medications Inactive Administered Medications - up to 3 most recent administrations Medication Order MAR Action Action Date Dose Rate Site bupivacaine 0.25% Given 11/13/2015 9:08 AM 10 mLs Operative (MARCAINE) 0.25 % QUALITY FACILITATOR Site/Montemayor rgical Site injection PRN, Starting on Marizol 11/13/15 at 0908, Intra-procedure diphenhydrAMINE (BENADRYL) injection 25 mg Given 11/13/2015 10:58 AM QUALITY FACILITATOR 25 mg 25 mg, Intravenous, ONCE, On Marizol 11/13/15 at 1100, For 1 dose, Post-procedure fentaNYL (SUBLIMAZE) injection 25-50 mcg Given 11/13/2015 10:48 AM QUALITY FACILITATOR 25 mcg 25-50 mcg, Intravenous, EVERY 5 MIN PRN, other, acute pain while in PACU., Starting on Marizol 11/13/15 at 0910, MAX cumulative dose = 250 mcg. Use Fentanyl initially, as a short acting agent for acute pain control. If insufficient, or a longer acting agent is needed, begin Morphine or Hydromorphone if ordered., PACU Given 11/13/2015 10:01 AM QUALITY FACILITATOR 50 mcg Given 11/13/2015 9:20 AM QUALITY FACILITATOR 50 mcg heparin 5,000 units in Given 11/13/2015 9:08 AM 800 mLs Operative Site/Surgical lactated ringers soln QUALITY FACILITATOR Sit e 1,000mL PRN, Starting on Marizol 11/13/15 at 0908, Intra-procedure HYDROcodone-acetaminophen (NORCO) 5-325 MG Given 11/13 11:05 AM QUALITY FACILITATOR 1 tablet per tablet 1-2 tablet 1-2 tablet, Oral, ONCE PRN, moderate to severe pain, Starting on Marizol 11/13/15 at 0943, For 1 dose, One time prior to discharge. Maximum acetaminophen dose from all sources= 75 mg/kg/day not to exceed 4 grams, Post-procedure lactated ringers infusion New Bag 11/13/2015 10:24 AM QUALITY FACILITATOR 1,000 mLs 100 mL/hr at 100 mL/hr, Intravenous, CONTINUOUS, Continue until IV catheter is weaned, PACU/Phase II, Starting on Marizol 11/13/15 at 0915, Until Marizol 11/13/15 at 1346 meperidine (DEMEROL) injection 12.5 mg Given 11/13/2015 10:41 AM QUALITY FACILITATOR 12.5 mg 12.5 mg, Intravenous, EVERY 15 MIN PRN, post anesthesia shivering, Starting on Marizol 11/13/15 at 0910, For 2 doses, PACU/Phase II midazolam (VERSED) injection 0.5-1 mg Given 11/13/2015 9:44 AM QUALITY FACILITATOR 1 mg 0.5-1 mg, Intravenous, EVERY 5 MIN PRN, muscle spasms, Starting on Marizol 11/13/15 at 0910, Max cumulative dose = 2 mg, PACU sodium chloride 0.9% (bag) Given 11/13/2015 8:54 AM 300 mLs Operative Site/Surgical irrigation QUALITY FACILITATOR Site PRN, Starting on Marizol 11/13/15 at 0854, Intra-procedure sodium chloride 0.9% Given 11/13/2015 8:55 AM 900 mLs Operative Site/Surgical (bottle) irrigation QUALITY FACILITATOR Site PRN, Starting on Marizol 11/13/15 at 0855, Intra-procedure documented in this encounter Active and Recently Administered Medications Times are shown in QUALITY FACILITATOR. Scheduled Medication Order 11/11/2015 11/12/2015 11/13/2015 diphenhydrAMINE (BENADRYL) injection 25 mg (COMPLETED) 1058 (Given - Provider: Don Mccabe, [place]) 25 mg, Intravenous, ONCE, On Marizol 11/13/15 at 1100, For 1 dose, P ost-procedure Continuous Medication Order 11/11/2015 11/12/2015 11/13/2015 lactated ringers infusion (CANCELED) 1024 (New Bag - Provider: Don Mccabe, RN) at 100 mL/hr, Intravenous, CONTINUOUS, C ontinue [...] documented as of this encounter Care Teams Pottery Kiln Builder Relationship Specialty Start Date End Date No Ref-Primary, Physician PCP - General 07/27/15 04/14/20 documented as of this encounter
--- OUTSIDE RECORDS SUMMARY | 2022-08-31 22:26 | XMS_ITS | Encounter Summary ---
:1990 Author Organization [place] Address [address] [place] [address]. [place] [address] Care Team Providers Name Role Phone No Ref-Primary, Physician Primary Care Provider Reason for Visit Reason Comments Recheck Medication control Encounter Details Date Type Department Care Team Description 03/02/2016 Office Visit [facility] Orion Puente Pr egnancy examination AND SURGERY CINDI WAYNE or test, KNOCKOUT MACHINE OPERATOR [address] unconfirmed (Primary [address] Dx) [address] [place] [address] [place] [id number] Social History Tobacco Use Types Packs/Day Years [...] Sign Reading Time Taken Comments Blood Pressure 136/70 03/02/2016 2:35 PM CDT Pulse - - Temperature - - Respiratory Rate - - Oxygen Saturation - - Inhaled Oxygen Concentration - - Weight 64 kg (141 lb) 03/02/2016 2:35 PM CDT Height 170.2 cm (5' 7) 03/02/2016 2:35 PM CDT Body Mass Index 22.08 03/02/2016 2:35 PM CDT documented in this encounter Progress Notes Orion Puente MD - 03/02/2016 2:39 PM CDT Gastrointestinal: Abdominal Examination: Abdomen nontender to palpation, tone normal without rigidity or guarding, no masses present, umbilicus without lesions; Liver/Spleen: No hepatomegaly present, liver nontender to palpation; Hernias: No hernias present Lymphatic: Lymph Nodes: No other lymphadenopathy present Skin:General Inspection: No rashes present, no lesions present, no areas of discoloration; Genitaliaand Groin: No rashes present, no lesions present, no areas of discoloration, no masses present. Pelvic Exam: External Genitalia: Normal appearance for age, no discharge present, no tenderness present, no inflammatory lesions present, color normal Vagina: Normal vaginal vault without central or paravaginal defects, no discharge present, no inflammatory lesions present, no masses present Bladder: Nontender to palpation Urethra: Urethral Body: Urethra palpation normal, urethra structural support normal Urethral Meatus: No erythema or lesions present Cervix: Appearance healthy, no lesions present, nontender to palpation, no bleeding present Uterus: Nontender to palpation, no masses present, position anteflexed, mobility: normal Adnexa: No adnexal tenderness present, no adnexal masses present Perineum: Perineum within normal limits, no evidence of trauma, no rashes or skin lesions present Anus: Anus within normal limits, no hemorrhoids present Inguinal Lymph Nodes: No lymphadenopathy present Pubic Hair: Normal pubic hair distribution for age Genitalia and Groin: No rashes present, no lesions present, no areas of discoloration, no masses present SUBJECTIVE: Keyla Porter is a 25 year old female who presents to clinic today for the following health issue(s): Patient presents with: Recheck Medication: control Additional information: Breakthrough bleeding on control suppression for treatment of endometriosis HPI: The patient is a 25-year-old who underwent laparoscopic treatment of endometriosis in October 2015. She has been on continuous suppression with control pills and has had breakthrough twice without taking any pills late. She is not having any pain with either intercourse or a full bladder. She no longer has any other pressure symptomatology she had before. Patient's last menstrual period was 01/30/2016.. Patient is sexually active, . Using oral contraceptives for contraception. reports that she has been smoking Cigarettes. She has been smoking about 0.10 packs per day. She has never used smokeless tobacco. Tobacco Cessation Action Plan: home plan STD testing offered? Declined Today's PHQ-2 Score: PHQ-2 (??1998 Pfizer) 12/02/2015 [...] depressive disorder, recurrent, severe without psychotic features ??? Generalized anxiety disorder ??? Chronic migraine without aura without status migrainosus, not intractable Past Surgical History Procedure Laterality Date ??? C oral surgery procedure ??? Dilation and curettage suction, treat incomplete 2008 ??? Laparoscopy 03/2010 ??? Colonoscopy ??? Laser co2 laparoscopic vaporization endometrium N/A 11/13/2015 Procedure: LASER CO2 LAPAROSCOPIC VAPORIZATION ENDOMETRIUM; Surgeon: Orion Puente MD; Location: [facility] ??? Dilation and curettage, operative hysteroscopy, combined N/A 11/13/2015 Procedure: COMBINED DILATION AND CURETTAGE, OPERATIVE HYSTEROSCOPY; Surgeon: Orion Puente MD; Location: [facility] History Substance Use Topics ??? Smoking [...] Father: also brain aneurysm, Paternal Grandfather: also [place] Depression (1) Mother Diabetes (1) Paternal Grandmother Current Outpatient Prescriptions Medication Sig ??? norethindrone-ethinyl estradiol (MICROGESTIN 1.5/30) 1.5-30 MG-MCG per tablet Take 1 tablet by mouth daily ??? HYDROcodone-acetaminophen (NORCO) 5-325 MG per tablet Take 1-2 tablets by mouth every 4 hours asneeded for other (Moderate to Severe Pain) ??? Ferrous Sulfate (IRON SUPPLEMENT PO) ??? levonorgestrel (MIRENA) 20 MCG/24HR IUD 1 each by Intrauterine route ??? IBUPROFEN PO Take 400 mg by mouth as needed for moderate pain ??? busPIRone (BUSPAR) 15 MG tablet Take 1 tablet (15 mg) by mouth 2 times daily ??? traZODone (DESYREL) 100 MG tablet Take 1.5 tablets (150 mg) by mouth At Bedtime No current facility-administered medications for this visit. Allergies Allergen Reactions ??? Morphine Unknown Nerve pain ??? Mcpherson ROS: 12 point review of systems negative other than symptoms noted below. Constitutional: Fatigue and Weight Gain Gastrointestinal: Nausea and Vomiting Genitourinary: Irregular Menses, Night Sweats and Spotting Skin: Acne Neurologic: Headaches Endocrine: Excessive Thirst Psychiatric: Anxiety and Difficulty Sleeping OBJECTIVE: BP 136/70 mmHg Ht 5' 7 (1.702 m) Wt 141 lb (63.957 kg) BMI 22.08 kg/m2 LMP 01/30/2016 ? No Body mass index is 22.08 kg/(m^2). Exam: Gastrointestinal: Abdominal Examination: Abdomen nontender to palpation, tone normal without rigidity or guarding, no masses present, umbilicus without lesions; Liver/Spleen: No hepatomegaly present, liver nontender to palpation; Hernias: No hernias present Lymphatic: Lymph Nodes: No other lymphadenopathy present Skin:General Inspection: No rashes present, no lesions present, no areas of discoloration; Genitaliaand Groin: No rashes present, no lesions present, no areas of discoloration, no masses present. Pelvic Exam: External Genitalia: Normal appearance for age, no discharge present, no tenderness present, no inflammatory lesions present, color normal Vagina: Normal vaginal vault without central or paravaginal defects, no discharge present, no inflammatory lesions present, no masses present Bladder: Nontender to palpation Urethra: Urethral Body: Urethra palpation normal, urethra structural support normal Urethral Meatus: No erythema or lesions present Cervix: Appearance healthy, no lesions present, nontender to palpation, no bleeding present Uterus: Nontender to palpation, no masses present, position anteflexed, mobility: normal Adnexa: No adnexal tenderness present, no adnexal masses present Perineum: Perineum within normal limits, no evidence of trauma, no rashes or skin lesions present Anus: Anus within normal limits, no hemorrhoids present Inguinal Lymph Nodes: No lymphadenopathy present Pubic Hair: Normal pubic hair distribution for age Genitalia and Groin: No rashes present, no lesions present, no areas of discoloration, no masses present In-Clinic Test Results: No results found for this or any previous visit (from the past 24 hour(s)). ASSESSMENT/PLAN: Patient with known history of endometriosis who has had good suppression with pills but some breakthrough bleeding. Her examination shows actually no tenderness or nodularity. She will shift to a 60 day active pill/5 day off her menses scheduled. She is due for a yearly examination this fall. Orion Puente MD [facility] [place] KNOCKOUT MACHINE OPERATOR documented in this encounter Nursing Notes Haydee Pozo - 03/02/2016 2:40 PM CDT Chief Complaint Patient presents with ??? Recheck Medication control Initial BP 136/70 mmHg Ht 5' 7 (1.702 m) Wt 141 lb (63.957 kg) BMI 22.08 kg/m2 LMP 01/30/2016 ? No Estimated body mass index is 22.08 kg/(m^2) as calculated from the following: Height as of this encounter: 5' 7 (1.702 m). Weight as of this encounter: 141 lb (63.957 kg). BP completed using cuff size: carla Pozo MA 03/02/2016 documented in this encounter Plan of Treatment Not on filedocumented as of this encounter Procedures Procedure Name Priority Date/Time Associated Diagnosis Comme nts HCG QUALITATIVE Routine 03/02/2016 3:13 PM Result s for this URINE CDT examination or test, procedu re are in the results unconfirmed section. documented in this encounter Results HCG qualitative urine (03/02/2016 3:13 PM CDT) P athologist Signature HCG Qual Urine Negative NEG [facility] Specimen Anatomical Collection Method Collection Time Receive d Time (Source) Location / / Volume Laterality Urine specimen 03/02/2016 3:13 PM 016 3:14 (specimen) CDT PM CDT Orion Puente MD LAB - URINE ORDERABLES Performing Organization Address City/State/ZIP Code Phon e Number [facility] documented in this encounter Visit Diagnoses Diagnosis examination or test, unconfirmed - Primary documented in this encounter Additional Health Concerns Assessment Noted Time PHQ-9 Depression Total Score: 19 09/04/2015 7:20 AM CD T documented as of this encounter Care Teams Pallet Repairer Relationship Specialty Start Date End Date No Ref-Primary, Physician PCP - General 07/27/15 04/14/20 documented as of this encounter
--- OUTSIDE RECORDS SUMMARY | 2022-08-31 22:26 | XMS_ITS | Encounter Summary ---
:1990 Author Organization [place] Address [address] [place] [address] Care Team Providers Name Role Phone No Ref-Primary, Physician Primary Care Provider [phone] Holland Thomas MD Primary Care Provider [phone] Reason for Visit Reason Comments Other SKY FROM DR FORTINO VALERIO 06/25 AT [facility] Encounter Details Date Type Department Care Team Description [facility]2016 [facility] [address] FORTINO VALERIO 06/25 AT Patient Access [facility]) [address] [phone] [place], [place] (Work) [address] Social History Tobacco Use Types Packs/Day [...] documented as of this encounter Care Teams Order Desk Clerk Relationship Specialty Start Date End Date No Ref-Primary, Physician PCP - General 07/27/15 04/14/20 Holland Thomas MD PCP - General numerical control machine operator 04/15/20 [address] [place], [place] [id number] documented as of this encounter
--- OUTSIDE RECORDS SUMMARY | 2022-08-31 22:26 | XMS_ITS | Encounter Summary ---
:1990 Author Organization [place] Address [facility] [place] [address] Care Team Providers Name Role Phone No Ref-Primary, Physician Primary Care Provider [phone] Reason for Visit Reason Onset Date Comments Erroneous encounter-disregard 12/01/2015 Encounter Details Date Type Department Care Team Description 11/26/2015 Office Visit [facility] Orion Puente Af tercare following surgery of the genitourinary system (Primary Dx); AND SURGERY CINDI WAYNE ERRONEOUS ENCOUNTER--DISREGARD BEEF SPLITTER [address] [place] [address] [place] [address] Social History Tobacco Use Types Packs/Day Years Used Date Smoking Tobacco: Every Day Cigarettes 0.1 Smokeless Tobacco: Never Comments: smoking 10cig/day- down to 1-2 with Alcohol Use Standard Drinks/Week Comments No 0 (1 standard drink = 0.6 oz pure alcoho l) Sex Assigned at Date Recorded Not on file documented as of this encounter Progress Notes Sonali Us APRN CNP - 12/01/2015 7:57 AM CST This encounter was opened in error. Please disregard. TH DATA ANALYST documented in this encounter Plan of Treatment Not on filedocumented as of this encounter Visit Diagnoses Diagnosis Aftercare following surgery of the genit ourinary system - Primary Aftercare following surgery of the genit ourinary system, NEC ERRONEOUS ENCOUNTER--DISREGARD documented in this encounter Additional Health Concerns Assessment Noted Time PHQ-9 Depression Total Score: 19 09/04/2015 7:20 AM CD T documented as of this encounter Care Teams Dishtank Operator Relationship Specialty Start Date End Date No Ref-Primary, Physician PCP - General 07/27/15 04/14/20 documented as of this encounter
--- OUTSIDE RECORDS SUMMARY | 2022-08-31 22:26 | XMS_ITS | Encounter Summary ---
:1990 Author Organization [place] Address [address] [place] [id number] Care Team Providers Name Role Phone No Ref-Primary, Physician Primary Care Provider [phone] Holland Thomas MD Primary Care Provider [phone] Amarilys Friedman TRAINMASTER Unavailable Encounter Details Date Type Department Care Team Description 07/13/2016 Records - [facility] CONVERSION Scan, Non-Provider Social History Tobacco Use Types Packs/Day Years [...] documented as of this encounter Care Teams Veterinary Toxicologist Relationship Specialty Start Date End Date No Ref-Primary, Physician PCP - General 07/27/15 04/14/20 Holland Thomas MD PCP - General street light repairer 04/15/20 [address] RIZVI [address] [place] [address] [id number] Amarilys Friedman, TRAINMASTER Assigned PCP 06/05/21 [address] [place], [place] [id number] documented as of this encounter
--- OUTSIDE RECORDS SUMMARY | 2022-08-31 22:26 | XMS_ITS | Encounter Summary ---
:1990 Author Organization [place] Address [address] [place] [address] Care Team Providers Name Role Phone No Ref-Primary, Physician Primary Care Provider [phone] Holland Thomas MD Primary Care Provider [phone] Encounter Details Date Type Department Care Team Description 04/09/2016 Records - [facility] CONVERSION Provider, Historpancho [...] documented as of this encounter Care Teams Hospice/Home Health Aide Relationship Specialty Start Date End Date No Ref-Primary, Physician PCP - General 07/27/15 04/14/20 Holland Thomas MD PCP - General air hammer operator 04/15/20 Tobias RIZVI [address] [place] [address] [phone] documented as of this encounter
--- OUTSIDE RECORDS SUMMARY | 2022-08-31 22:26 | XMS_ITS | Encounter Summary ---
:1990 Author Organization [place] Address [address] [facility] [place] [address] Care Team Providers Name Role Phone No Ref-Primary, Physician Primary Care Provider [phone] Reason for Visit Reason Onset Date Comments Pain 11/26/2015 Encounter Details Date Type Department Care Team Description 11/26/2015 Telephone [facility] Sonali Us, DIANA Pain SURGERY FRESNO OB/ MANAGER MEDIA RELATIONS OFFICE COMMUNICATION PROFESSOR [address] [address] [place] [address] [phone] Social History Tobacco Use Types Packs/Day Years Used Date Smoking Tobacco: Every Day Cigarettes 0.1 Smokeless Tobacco: Never Comments: smoking 10cig/day- down to 1-2 with Alcohol Use Standard Drinks/Week Comments No 0 (1 standard drink = 0.6 oz pure alcoho l) Sex Assigned at Date Recorded Not on file documented as of this encounter Miscellaneous Notes Telephone Encounter - Sonali Us APRN OFFICE COMMUNICATION PROFESSOR - 11/26/2015 4:37 PM JIG BORE TOOL MAKER Patient having increased post op pain. She went back to work today and had to cancel her post op appointment. Discussed limited access with narcotics. Offered tramadol, pt had reaction to this. Offeredsending toradol tonight, pt doesn't have access to a car to get to pharmacy tonight. She will have access to a vehicle tomorrow over the lunch hour and she will brass pickler her rx for norco then. She rescheduled her post op appointment for next Tuesday. She is voiding, with some irritation, and having BM's. She denies fever and chills. BORE TOOL MAKER documented in this encounter Plan of Treatment Not on filedocumented as of this encounter Visit Diagnoses Diagnosis Pelvic pain in female - Primary Unspecified symptom associated with fema le genital organs documented in this encounter Additional Health Concerns Assessment Noted Time PHQ-9 Depression Total Score: 19 09/04/2015 7:20 AM CD T documented as of this encounter Care Teams Rn Community Relationship Specialty Start Date End Date No Ref-Primary, Physician PCP - General 07/27/15 04/14/20 documented as of this encounter
--- OUTSIDE RECORDS SUMMARY | 2022-08-31 22:26 | XMS_ITS | Encounter Summary ---
:1990 Author Organization [place] Address [address] [facility] [address] Care Team Providers Name Role Phone No Ref-Primary, Physician Primary Care Provider [phone] Encounter Details Date Type Department Care Team Description 04/26/2016 Orders Only [facility] Sonali Devries Pelvic pain in female AND SURGERY TROY DIANA Riddle CANNED FOOD RECONDITIONING INSPECTOR (Primary Dx) GIVER [address] [address] [place] [phone] Social History Tobacco Use Types Packs/Day Years Used Date Smoking Tobacco: Former Cigarettes 0.1 Smokeless Tobacco: Never Comments: smoking 10cig/day- down to 1-2 with Alcohol Use Standard Drinks/Week Comments No 0 (1 standard drink = 0.6 oz pure alcoho l) Sex Assigned at Date Recorded Not on file documented as of this encounter Plan of Treatment Not on filedocumented as of this encounter Results US OB Transvaginal Only (04/30/2016 2:53 PM CDT) Anatomical Region Laterality Modality Abdomen/Pelvis Computed Radiography Specimen (Source) Anatomical Location Collection Method / Collectio n Time Received Time / Laterality Volume Narrative 04/30/2016 3:11 PM CDT US OB Transvaginal Only Order #: [id number] Study Notes? Alvin Leal on 04/30/2016 ??2:5 6 PM ?? ULTRASOUND - EARLY OB (0-11 WEEKS) Referring Provider: SONALI DEVRIES Clinic: [place] SOUND RECORDIST TROY CHORAL TEACHER NARRATIVE: Uterus contains a single central gestati [...] GINAL ONLY ? Discussed here Sonali Devries MANUAL WINDER CANNED FOOD RECONDITIONING INSPECTOR IMG US ORDERABLES documented in this encounter Visit Diagnoses Diagnosis Pelvic pain in female - Primary Unspecified symptom associated with fema le genital organs Pelvic pain in female Unspecified symptom associated with fema le genital organs documented in this encounter Additional Health Concerns Assessment Noted Time PHQ-9 Depression Total Score: 19 09/04/2015 7:20 AM CD T documented as of this encounter Care Teams Cam Milling Machine Operator Relationship Specialty Start Date End Date No Ref-Primary, Physician PCP - General 07/27/15 04/14/20 documented as of this encounter
--- OUTSIDE RECORDS SUMMARY | 2022-08-31 22:26 | XMS_ITS | Encounter Summary ---
:1990 Author Organization [place] Address [address] [place] [id number] Care Team Providers Name Role Phone No Ref-Primary, Physician Primary Care Provider Holland Thomas MD Primary Care Provider [phone] Reason for Visit Reason Comments Care SKY Encounter Details Date Type Department Care Team Description 07/23/[address] [facility] Spencer Daniesl [facility] [address] [place], [place] [address] Encounter for supervision of little leblanc , second trimester; Visit - [facility] Provider, Historical Generalized anxiety disorder; [facility] Hx of depression, currently ; [address] [facility] History of la paroscopy; Drive [address] [place] [address] Social History Tobacco Use Types [...] - Inhaled Oxygen Concentration - - Weight 67.5 kg (148 lb 12.8 oz) 07/23/2016 10:55 AM CDT Height 170.8 cm (5' 7.25) 07/23/2016 10:55 AM CDT Body Mass Index 23.13 07/23/2016 10:55 AM CDT documented in this encounter Progress Notes Mariajose Daniels, WALESKA - 07/23/2016 1:30 PM CDT VISIT TRANSFER OF CARE FIRST OBSTETRICAL EXAM - OB Assessment / Impression , Normal transfer of care visit at 19w6d Hx of laparotomy for endometrosis and missing IUD strings - IUD in uterus Hx of depression/anxiety Hx of depression Former tobacco user - quit at 12 weeks of +antibody screen - warm auto-antibody (Amberson negative, E negative) - Per blood bank: No risk to baby,may repeat antibody screen at 28 weeks Plan: 1. Transfer [facility] care visit. [facility] Patient had 1 visits after starting care on 05/13/16 at 10.4 weeks gestation. 2. Review of her records revealed the following complications: *Hx of laparotomy for endometrosis and missing IUD strings - IUD in uterus *Hx of depression/anxiety *Hx of depression *Former tobacco user - quit at 12 weeks of *+antibody screen - warm auto-antibody (Connie negative, E negative) - Per blood bank: No risk to baby, repeat dionte screen at 28 weeks 3. IOB labs reviewed, WNL (see external labs and info above about dionte screen) 4. Pap smear: 10/2015 - NILM 5. GC/CT not in transfer labs 6. Lead screen: declines 7. Medications: vitamins. Encouraged a vitamin D3, an omega 3 fatty acid supplement daily as well. 8. Problem list reviewed and updated. 9. Genetic screening: discussed and declined. 10. Role of ultrasound in discussed; survey ultrasound ordered 11. Oriented to [facility] care and philosophy; group, on-call and contact info discussed. Desires waterbirth - will need Hep C at 28 week draw 12. Appropriate anticipatory guidance including nutrition & supplements, weight gain recommendations: 25-35 lbs, exercise, resources, lab testing & warning signs discussed. . 13. Follow up: 4 weeks Addressed EPDS: 10 - no thoughts of self-harm. Patient feels that this is a normal score for her. Feels anxiety is well-controlled at this time. TT with patient 45 minutes >50% time spent in counseling or coordination of care. Subjective: Keyla Porter is a 26 y.o. here today for her First Obstetrical Exam. Here with Jose Patient's last menstrual period was 02/29/2016 (exact date). Last period was normal. is dated off of first trimester ultrasound. Both Keyla and her partner are excited for this . He has 2 girls from a previous relationship and Keyla has one girl from a previous relationship. Very interested in waterbirth, had last unmedicated, and labored most of the time in the tub. +FM. OB History Para Term AB SAB TAB [...] Comments: D&C, subchorionic uterine bleeding and placental 12/11/2016, by Ultrasound Past Medical History Diagnosis Date ??? Abnormal [...] states no contraindication to vaginal per patient Social History Substance Use Topics ??? Smoking status: Former Smoker ??? Smokeless tobacco: Never Used Comment: quit at 12 weeks ??? Alcohol use No Current Outpatient Prescriptions Medication Sig Dispense Refill ??? ferrous sulfate 325 (65 FE) MG tablet Take 1 tablet by mouth once as needed (takes twice per week). ??? PNV cmb#18-[id number] acid ( COMPLETE) 14-400 mg-mcg Tab Take 1 tablet by mouth daily. 60 tablet 0 No current facility-administered medications for this visit. Allergies Allergen Reactions ??? Morphine Unknown Nerve pain High Risk Behavior: None Review of Systems General: Denies problem Eyes: Denies problem Ears/Nose/Throat: Denies problem Cardiovascular: Denies problem Respiratory: Denies problem Gastrointestinal: Denies problem, Genitourinary: Denies problem Musculoskeletal: Denies problem Skin: Denies problem Neurologic: Denies problem Psychiatric: Denies problem, some anxiety - well controlled Endocrine: Denies problem Objective: Objective Vitals: 07/23/16 1055 BP: 106/60 Pulse: 80 Weight: 148 lb 12.8 oz (67.5 kg) Height: 5' 7.25 (1.708 m) EPDS: 10 Physical Exam: General Appearance: Alert, cooperative, no distress, appears stated age Skin: Skin color, texture, turgor normal, no rashes or lesions Throat: Lips, mucosa, and tongue normal; teeth and gums normal HEENT: grossly normal; otoscopic and opthalmic exam not performed. Neck: Supple, symmetrical, trachea midline, no adenopathy; thyroid: not enlarged, symmetric, no tenderness/mass/nodules Lungs: Clear to auscultation bilaterally, respirations unlabored Breasts: No breast masses, tenderness, asymmetry, or nipple discharge. Heart: Regular rate and rhythm, S1 and S2 normal, no murmur, rub, or gallop Abdomen: Soft, non-tender, no masses, no organomegaly, gravid Pelvic: deferred Extremities: Extremities normal without varicosities or edema Lab: External labs entered documented in this encounter Plan of Treatment Not on filedocumented as of this encounter Visit Diagnoses Diagnosis Encounter for supervision of little leblanc , second trimester Generalized anxiety disorder Hx of depression, currently p regnant with other poor obstetric hist ory History of laparoscopy Personal history of surgery to other org ans Abnormal antibody titer Other and unspecified nonspecific immuno logical findings documented in this encounter Additional Health Concerns Assessment Noted Time PHQ-9 Depression Total Score: 19 09/04/2015 7:20 AM CD T documented as of this encounter Care Teams Telegraphic Service Dispatcher Relationship Specialty Start Date End Date No Ref-Primary, Physician PCP - General 07/27/15 04/14/20 Holland Thomas MD PCP - General category specialist 04/15/[address] [phone] documented as of this encounter
--- OUTSIDE RECORDS SUMMARY | 2022-08-31 22:26 | XMS_ITS | Encounter Summary ---
:1990 Author Organization [place] Address [address] [place] [address] Care Team Providers Name Role Phone No Ref-Primary, Physician Primary Care Provider [phone] Encounter Details Date Type Department Care Team Description 07/27/2016 Hospital Encounter [facility] Emerson[facility] [address] [place], [place] [address] Encounter for [facility] Provider, Historical supervision of [facility] other normal [address] [facility] , [place] [address] Social History Tobacco Use Types [...] Priority Date/Time Associated Diagnosis Comme nts US OB > 14 WEEKS Routine 07/27/2016 11:10 AM Encounter for Res ults for this CDT supervision of other procedu re are in normal , the result s second trimester section. documented in this encounter Results US OB > 14 Weeks (07/27/2016 11:10 AM CDT) Anatomical Region Laterality Modality Abdomen/Pelvis Other Specimen (Source) Anatomical Location Collection Method / Collectio n Time Received Time / Laterality Volume Impressions 07/27/2016 11:47 AM CDT CONCLUSION: ?? 1. ??Single living intrauterine gestatio n. 2. ??Based on this ultrasound, composite age of 20 weeks 5 days. 3. ??Normal interval growth. 4. ??Normal survey. 5. ??Low lying placenta. Narrative 07/27/2016 11:47 AM CDT US OB > = 14 WEEKS 07/27/2016 11:10 AM INDICATION: survey. TECHNIQUE: Routine. COMPARISON: Ultrasound 04/07/2016. FINDINGS: Single intrauterine gestation, vertex pr esentation. Placenta is located anteriorly and is low lying with the placental margin 1.7 cm from the cervical os. Amniotic fluid is normal. Uterus is normal. Maternal adnexa (right and left ovaries) show no abnormalities. ANOMALY SCREEN: ?? Cerebral Ventricles: Normal Cisterna Magna: Normal Spine: Normal Stomach: Normal Bladder: Normal Kidneys: Normal Lips/Nares: Normal Four-Chamber Heart: Normal Outflow Tract: Normal Three-Vessel Cord: Normal Cord Insertion: Normal Extremities: Normal Diaphragms: Normal BIOMETRY: Biparietal Diameter: 4.9 cm, 20 weeks, 5 days Head Circumference: 18.6 cm, 21 weeks, 0 days Abdominal Circumference: 15.9 cm, 21 wee ks, 1 day Femur Length: 3.2 cm, 20 weeks, 0 days Estimated Weight: 364 g +/- 53 g EFW Percentile: 50% Heart Rate: 149 bpm Cervical Length: 4.3 cm EDC by First US Exam: 12/11/2016 EDC by This US Exam: 12/09/2016 Composite Age by First US: 20 weeks, 3 d ays Composite Age by This US: 20 weeks, 5 da ys Procedure Note Alvin Pang MD - 04/26/2021Formattin g of this note might be different from the original. US OB > = 14 WEEKS 07/27/2016 11:10 AM INDICATION: survey. TECHNIQUE: Routine. COMPARISON: Ultrasound 04/07/2016. FINDINGS: Single intrauterine gestation, vertex pr esentation. Placenta is located anteriorly and is low lying with the placental margin 1.7 cm from the cervical os. Amniotic fluid is normal. Uterus is normal. Maternal adnexa (right and left ovaries) show no abnormalities. ANOMALY SCREEN: Cerebral Ventricles: Normal Cisterna Magna: Normal Spine: Normal Stomach: Normal Bladder: Normal Kidneys: Normal Lips/Nares: Normal Four-Chamber Heart: Normal Outflow Tract: Normal Three-Vessel Cord: Normal Cord Insertion: Normal Extremities: Normal Diaphragms: Normal BIOMETRY: Biparietal Diameter: 4.9 cm, 20 weeks, 5 days Head Circumference: 18.6 cm, 21 weeks, 0 days Abdominal Circumference: 15.9 cm, 21 wee ks, 1 day Femur Length: 3.2 cm, 20 weeks, 0 days Estimated Weight: 364 g +/- 53 g EFW Percentile: 50% Heart Rate: 149 bpm Cervical Length: 4.3 cm EDC by First US Exam: 12/11/2016 EDC by This US Exam: 12/09/2016 Composite Age by First US: 20 weeks, 3 d ays Composite Age by This US: 20 weeks, 5 da ys IMPRESSION: CONCLUSION: 1. Single living intrauterine gestation. 2. Based on this ultrasound, composite a ge of 20 weeks 5 days. 3. Normal interval growth. 4. Normal survey. 5. Low lying placenta. Mariajose Daniels [facility] IM US ORDERABLES documented in this encounter Visit Diagnoses Diagnosis Encounter for supervision of other filiberto leblanc , second trimester documented in this encounter Additional Health Concerns Assessment Noted Time PHQ-9 Depression Total Score: 19 09/04/2015 7:20 AM CD T documented as of this encounter Care Teams Dehydrogenation Supervisor Relationship Specialty Start Date End Date No Ref-Primary, Physician PCP - General 07/27/15 04/14/20 documented as of this encounter
--- OUTSIDE RECORDS SUMMARY | 2022-08-31 22:27 | XMS_ITS | Encounter Summary ---
:1990 Author Organization [place] Address [address] [facility] [place] [address] Care Team Providers Name Role Phone No Ref-Primary, Physician Primary Care Provider [phone] Encounter Details Date Type Department Care Team Description 08/26/2015 Office Visit [facility] Ollie Myles Adjustment disorder [facility] MARICHUY Ellis with depressed mood [address] (Primary Dx) [address] [place] [phone] Social History Tobacco Use Types Packs/Day Years Used Date Smoking Tobacco: Every Day Cigarettes 0.1 Smokeless Tobacco: Never Comments: smoking 10cig/day- down to 1-2 with Alcohol Use Standard Drinks/Week Comments Yes 0 (1 standard drink = 0.6 oz pure 5-6 dr inks weekly- quit with alcohol) Sex Assigned at Date Recorded Not on file documented as of this encounter Progress Notes Ollie Myles LICSW - 08/27/2015 12:16 PM CDT [facility] August 26, 2015 Behavioral Health Clinician Progress Note Patient Name: Keyla Porter Service Type: Individual Service Location: in clinic Session Start Time: 1:40pm Session End Time: 2pm Session Length: 16 - 37 Attendees: Patient Visit Activities (Refresh list every visit): NEW and [facility] [employer] See Flowsheets for today's PHQ-9 and CAMERON-7 results Previous PHQ-9: PHQ-9 SCORE 08/26/2015 Total Score 22 Previous CAMERON-7: CAMERON-7 SCORE 08/26/2015 Total Score 15 NGOZI LEVEL: No flowsheet data found. DATA Extended Session (60+ minutes): No Interactive Complexity: No Crisis: No Treatment Objective(s) Addressed in This Session: Target Behavior(s): disease management/lifestyle changes mental health Depressed Mood: Increase interest, engagement, and pleasure in doing things Decrease frequency and intensity of feeling down, depressed, hopeless Improve quantity and quality of night time sleep / decrease daytime naps Improve diet, appetite, mindful eating, and / or meal planning Identify negative self-talk and behaviors: challenge core beliefs, myths, and actions Improve concentration, focus, and mindfulness in daily activities Anxiety: will experience a reduction in anxiety, will develop more effective coping skills to manageanxiety symptoms, will develop healthy cognitive patterns and beliefs and will increase ability to function adaptively Psychological distress related to Sleep Disturbance Current Stressors / Issues: The patient scored 22 on PHQ-9 and 15 on GADS-7 and she stated this to be consistent with how she has been feeling. She has been recently discharged from acute psychiatric care due to suicidal thoughts-she is a single mother of 3 year old child-her depression and anxiety increased after the of her child-she works fulltime and is the provider for her family-she stated to have intense anxiety anddepression and that she pushes herself to go to work and take care of necessary things because she has to provide for herself and daughter-she has history of issues in relationship to mother as her mother has history of chemical abuse-she stopped having contact with her mother and as a result family members have been critical of the patient. The patient only sleeps about 4 to 5 hours a night and she has low appetite. She expressed the worry in taking medications due to her desire to not get addicted. The patient has history of panic attacks. Progress on Treatment Objective(s) / Homework: No improvement - PREPARATION (Decided to change - considering how); Intervened by negotiating a change plan and determining options / strategies for behavior change, identifying triggers, exploring social supports, and working towards setting a date to begin behavior change Motivational Interviewing AK Intervention: Expressed Empathy/Understanding, Supported Autonomy, Collaboration, Evocation, Permission to raise concern or advise, Open-ended questions, Reflections: simple and complex and Change talk (evoked) Change Talk Expressed by the Patient: Desire to change Reasons to change Need to change Activation Taking steps Provider Response to Change Talk: E - Evoked more info from patient about behavior change, A - Affirmed patient's thoughts, decisions, or attempts at behavior change, R - Reflected patient's change talk and S - Summarized patient's change talk statements Care Plan review completed: No Medication Review: No changes to current psychiatric medication(s) Medication Compliance: NA Changes in Health Issues: None reported Chemical Use Review: Substance Use: Chemical use reviewed, no active concerns identified Tobacco Use: No change in amount of tobacco use since last session. Patient declined discussion at this time Assessment: Current Emotional / Mental Status (status of significant symptoms): Risk status (Self / Other harm or suicidal ideation) Patient denies current fears or concerns for personal safety. Patient denies current or recent suicidal ideation or behaviors. Patient denies current or recent homicidal ideation or behaviors. Patient denies current or recent self injurious behavior or ideation. Patient denies other safety concerns. A safety and risk management plan has not been developed at this time, however patient was encouraged to call [place] [phone] should there be a change in any of these risk factors. Appearance: Appropriate Eye Contact: Good Psychomotor Behavior: Restless Attitude: Cooperative Orientation: All Speech Rate / Production: Normal Volume: Normal Mood: Anxious Affect: Restricted Worrisome Thought Content: Clear Thought Form: Coherent Goal Directed Logical Insight: Good Provisional Diagnoses: 1. Adjustment disorder with depressed mood Collateral Reports Completed: Not Applicable Plan: (Homework, other): Patient was given information about behavioral services and encouraged to schedule a follow up appointment with the clinic [facility] in 1 week. She was also given information about mental health symptoms andtreatment options . CD Recommendations: No indications of CD issues. MARICHUY Almanzar, [facility] documented in this encounter Plan of Treatment Not on filedocumented as of this encounter Visit Diagnoses Diagnosis Adjustment disorder with depressed mood - Primary documented in this encounter Additional Health Concerns Assessment Noted Time PHQ-9 Depression Total Score: 22 08/27/2015 7:24 AM CD T documented as of this encounter Care Teams Smoke Control Supervisor Relationship Specialty Start Date End Date No Ref-Primary, Physician PCP - General 07/27/15 04/14/20 documented as of this encounter
--- OUTSIDE RECORDS SUMMARY | 2022-08-31 22:27 | XMS_ITS | Encounter Summary ---
:1990 Author Organization [place] Address [address] [place] [address] Care Team Providers Name Role Phone Unavailable Primary Care Provider Unavailable Reason for Visit Reason Comments Abdominal Pain epigastric pain down to lowe r abd. Encounter Details Date Type Department Care Team Description 03/17/2011 Emergency [facility] Issa Hurley Abdom inal pain, [place] Emergency De pt MD Donn epigastric [address] [facility] [place] [address] [place], [place] [phone] [id number] Social History Tobacco Use Types Packs/Day Years Used Date Smoking Tobacco: Every Day Cigarettes 0.1 Comments: 2-3 a day, cutting down 09 Alcohol Use Standard Drinks/Week Comments No 0 (1 standard drink = 0.6 oz pure alcoho l) Sex Assigned at Date Recorded Not on file documented as of this encounter Last Filed Vital Signs Vital Sign Reading Time Taken Comments Blood Pressure 113/73 03/17/2011 3:53 AM CDT Pulse 59 03/17/2011 3:30 AM CDT Temperature 36.4 ??C (97.6 ??F) 03/17/2011 3:53 AM CDT Respiratory Rate 16 03/17/2011 3:53 AM CDT Oxygen Saturation 95% 03/17/2011 3:53 AM CDT Inhaled Oxygen Concentration - - Weight - - Height - - Body Mass Index - - documented in this encounter Discharge Instructions Discharge InstructionsRonIssa haddad - 03/17/2011 3:39 AM CDT Advance diet and activity as tolerated. Follow up with primary md if symptoms persist, return to the ED if significant clinical worsening. documented in this encounter ED Notes Khalif Torres RN - 03/17/2011 3:31 AM CDT Pt given Zofran for nausea. States the GI cocktail took her pain down to a 3. Khalif Torres RN - 03/17/2011 3:06 AM CDT Pt states she has had some nausea since arriving. Camila Reese RN - 03/17/2011 2:17 AM CDT To ultrasound per cart. Issa Hurley - 03/17/2011 1:19 AM CDT History Chief Complaint Patient presents with ??? Abdominal Pain epigastric pain down to lower abd. HPI 20-year-old presents to the emergency department with abdominal pain. The pain started just prior toarrival, relatively rapid onset, sharp and crampy in nature, radiating slightly to the right and down the bellybutton. Associated with nausea but no vomiting, no chills, worsening by sitting upright, in a patient with no prior history of similar symptoms.Patient had previous laparoscopy for endometriosis, otherwise no prior abdominal surgeries. Father had a history of gallstones, otherwise family history is negative. Is moderate in intensity. Last meal was about 4 hours ago eating potato chips. Patient was drinking a soda prior to the onset of pain. I have reviewed the Medications, Allergies, Past Medical and Surgical History, and Social History inthe Epic system. Review of Systems Constitutional: Negative for fever and fatigue. HENT: Negative for sore throat and trouble swallowing. Respiratory: Negative for cough and shortness of breath. Cardiovascular: Negative for chest pain. Gastrointestinal: Positive for nausea and abdominal pain. Genitourinary: Negative for urgency. Musculoskeletal: Negative for back pain. Skin: Negative for rash. Neurological: Negative for headaches. All other systems reviewed and are negative. Physical Exam BP: 120/79 mmHg Heart Rate: 70 Temp: 97.2 ??F (36.2 ??C) SpO2: 97 % Physical Exam Constitutional: No distress. HENT: Head: Atraumatic. Mouth/Throat: Oropharynx is clear and moist. No oropharyngeal exudate. Eyes: Pupils are equal, round, and reactive to light. No scleral icterus. Cardiovascular: Normal heart sounds and intact distal pulses. Pulmonary/Chest: Breath sounds normal. No respiratory distress. Abdominal: There is no hepatosplenomegaly. Tenderness is present in the right upper quadrant and epigastric area. She has positive Cruz's sign. She has no rigidity, no rebound and no CVA tenderness. Musculoskeletal: She exhibits no edema and no tenderness. Skin: Skin is warm. No rash noted. She is not diaphoretic. ED Course Procedures Labs Resulted from Time of ED Arrival Up to the Time of Departure from the ED URINE MACROSCOPIC WITH REFLEX TO MICRO - Abnormal; Notable for the following: ??? Protein Albumin Urine 10 (*) ??? Squamous Epithelial /HPF Urine 4 (*) ??? Mucous Urine Present (*) All other components within normal limits CBC WITH PLATELETS DIFFERENTIAL COMPREHENSIVE METABOLIC PANEL LIPASE HCG QUALITATIVE URINE Assessments & Plan (with Medical Decision Making) Patient's limited ultrasound normal. In addition her laboratory results today are all within normal limits. During the Ed course, she had good improvement in symptoms. She was given a GI cocktail, withgood results.Discharge patient to home,advance diet and activity as tolerated, followup with primaryM.D., clinical worsening. I have reviewed the nursing notes. I have reviewed the findings, diagnosis, plan and need for follow up with the patient. New Prescriptions No medications on file Final diagnoses: Abdominal pain, epigastric Issa Hurley 03/17/11 0339 Renetta Henriquez RN - 03/17/2011 12:59 AM CDT Pt c/o severe sudden sharp abd pain that started 20 min ago. No nausea. No diarrhea. No fevers. Painis on/off. Pain is in upper abd as well as lower but more intense in upper abd. documented in this encounter Plan of Treatment Not on filedocumented as of this encounter Procedures Procedure Name Priority Date/Time Associated Comments Diagnosis US ABDOMEN LIMITED STAT 03/17/2011 2:38 AM Res ults for this CDT procedure are i n the results section. HCG QUALITATIVE URINE STAT 03/17/2011 1:42 AM Results for this CDT procedure are i n the results section. URINE MACROSCOPIC WITH Routine 03/17/2011 1:42 AM Results for this REFLEX TO MICRO CDT procedure ar e in the results section. CBC WITH PLATELETS & STAT 03/17/2011 1:40 AM R esults for this DIFFERENTIAL CDT procedure are i n the results section. LIPASE STAT 03/17/2011 1:40 AM Results f or this CDT procedure are i n the results section. COMPREHENSIVE STAT 03/17/2011 1:40 AM Results for this METABOLIC PANEL CDT procedure ar e in the results section. documented in this encounter Results US Abdomen Limited* (03/17/2011 2:38 AM CDT) Anatomical Region Laterality Modality Abdomen/Pelvis Other Specimen (Source) Anatomical Collection Method Collection Time Re ceived Time Location / / Volume Laterality 03/17/2011 2:38 AM CDT Impressions 03/17/2011 1:43 PM CDT US ABDOMEN LIMITED Mar 17, 2011 2:38:00 AM HISTORY: Right upper quadrant pain. TECHNIQUE: Limited abdominal ultrasound to the right upper quadrant is performed. COMPARISON: 12/01/05. FINDINGS: No gallstones, gallbladder wal l thickening, or biliary dilatation are seen. The body and tail o f the pancreas are within normal limits. The head of the pancreas is partially obscured by overlying bowel gas. The right kidney is unremarkable. ?? IMPRESSION: ??No gallstones or other spe cific reason for right upper quadrant pain is seen. Issa Hurley MD IMG US ORDERABLES HCG qualitative urine (03/17/2011 1:42 AM CDT) athologist Signature HCG Qual Urine Negative NEG [facility] Specimen Anatomical Collection Method Collection Time Receive d Time (Source) Location / / Volume Laterality Urine specimen URINE SPECIMEN 03/17/2011 1:42 AM 03/17 1:48 (specimen) OBTAINED BY CLEAN CDT AM CDT CATCH PROCEDURE / Unknown Issa Hurley MD LAB - URINE ORDERABLES Performing Organization Address [facility] Phon e Number [facility] [address] [place], [place] [address] [facility] (ABNORMAL) Urine macroscopic with reflex to micro (03/17/2011 1:42 AM CDT) [facility] Method Time Signature Color Urine Yellow [facility] Appearance Urine Slightly MOUNDS Cloudy [facility] Glucose Urine Negative NEG mg/dL [facility] Bilirubin Urine Negative NEG [facility] Ketones Urine Negative NEG mg/dL [facility] Specific [place] 1.024 1.003 - MOUNDS Urine 1.035 [facility] Blood Urine Negative NEG [facility] pH Urine 6.0 5.0 - 7.0 [facility] Protein Albumin 10 (A) NEG mg/dL [facility] Urobilinogen Normal 0.0 - 2.0 MOUNDS mg/dL mg/dL [facility] Nitrite Urine Negative NEG [facility] Leukocyte Negative NEG MOUNDS Esterase Urine [facility] Source Midstream [facility] RBC Urine <1 0 - 2 MOUNDS /HPF [facility] WBC Urine <1 0 - 2 MOUNDS /[facility] Squamous 4 (H) 0 - 1 MOUNDS Epithelial /HPF /HPF [facility] Mucous Urine Present (A) NEG /LPF [facility] Specimen Anatomical Collection Method Collection Time Receive d Time (Source) Location / / Volume Laterality Urine specimen URINE SPECIMEN 03/17/2011 1:42 AM 03/17 1:48 (specimen) OBTAINED BY CLEAN CDT AM CDT CATCH PROCEDURE / Unknown Issa Hurley MD LAB - URINE ORDERABLES Performing Organization Address [facility] Phon e Number [facility] [address] [place], [place] [address] [facility] Lipase (03/17/2011 1:40 AM CDT) athologist Signature Lipase 43 20 - 250 [facility] U/L [facility] Specimen Anatomical Collection Method Collection Time Receive d Time (Source) Location / / Volume Laterality Blood specimen 03/17/2011 1:40 AM 011 1:47 (specimen) CDT AM CDT Issa Hurley MD LAB - BLOOD ORDERABLES Performing Organization Address City/State/ZIP Code Phon e Number [facility] [address] [place], [place] [address] [facility] Comprehensive metabolic panel (03/17/2011 1:40 AM CDT) athologist Signature Sodium 143 133 - 144 [facility] mmol/L [facility] Potassium 3.8 3.4 - 5.3 [facility] mmol/L [facility] Chloride 108 94 - 109 [facility] mmol/L [facility] Carbon Dioxide 26 20 - 32 [facility] mmol/L [facility] Anion Gap 9 6 - 17 [facility] mmol/L [facility] Glucose 91 60 - 99 [facility] mg/dL [facility] Urea Nitrogen 14 5 - 24 [facility] mg/dL [facility] Creatinine 0.66 0.52 - [facility] 1.04 mg/dL [facility] GFR Estimate >90 >60 [facility] mL/min/1.7 [facility] m2 [facility] GFR Estimate If >90 >60 [facility] Black mL/min/1.7 [facility] m2 [facility] Calcium 9.7 8.5 - 10.4 [facility] mg/dL [facility] Bilirubin Total 0.3 0.2 - 1.3 [facility] mg/dL [facility] Albumin 4.7 3.9 - 5.1 [facility] g/dL [facility] Protein Total 7.9 6.8 - 8.8 [facility] g/dL [facility] Alkaline 54 40 - 150 [facility] Phosphatase U/L [facility] ALT 25 0 - 50 U/L [facility] AST 26 0 - 45 U/L [facility] Specimen Anatomical Collection Method Collection Time Receive d Time (Source) Location / / Volume Laterality Blood specimen 03/17/2011 1:40 AM 011 1:47 (specimen) CDT AM CDT Issa Hurley MD LAB - BLOOD ORDERABLES Performing Organization Address City/State/ZIP Code Phon e Number [facility] [address] [place], [place] [address] [facility] CBC with platelets differential (03/17/2011 1:40 AM CDT) [facility] Method Time Signature WBC 4.8 4.0 - MOUNDS 11.0 [facility] 10e9[facility] RBC Count 4.22 3.8 - 5.2 MOUNDS 10e12/L [facility] Hemoglobin 13.0 11.7 [facility] 15.7 g/dL [facility] Hematocrit 38.7 35.0 - MOUNDS 47.0 % [facility] MCV 92 78 - 100 [facility] MCH 30.8 26.5 - MOUNDS 33.[address] [facility] MCHC 33.6 31.5 - MOUNDS 36.5 g/dL [facility] RDW 12.3 10.0 - MOUNDS 15.0 % [facility] Platelet Count 248 150 - 450 MOUNDS 10e9/L [facility] Diff Method Automated [facility] % Neutrophils 42.9 40 - 75 % [facility] % Lymphocytes 43.4 20 - 48 % [facility] % Monocytes 11.6 0 - 12 % [facility] % Eosinophils 1.9 0 - 6 % [facility] % Basophils 0.2 0 - 2 % [facility] Absolute 2.1 1.6 - 8.3 MOUNDS Neutrophil 10e9/L [facility] Absolute 2.1 0.8 - 5.3 MOUNDS Lymphocytes 10e9/L [facility] Absolute 0.6 0.0 - 1.3 MOUNDS Monocytes 10e9/L [facility] Absolute 0.1 0.0 - 0.7 MOUNDS Eosinophils 10e9/L [facility] Absolute 0.0 0.0 - 0.2 MOUNDS Basophils 10e9/L [facility] Specimen Anatomical Collection Method Collection Time Receive d Time (Source) Location / / Volume Laterality Blood specimen 03/17/2011 1:40 AM 011 1:47 (specimen) CDT AM CDT Issa Hurley MD LAB - BLOOD ORDERABLES Performing Organization Address City/State/ZIP Code Phon e Number [facility] [address] [place], [place] [address] [facility] documented in this encounter Visit Diagnoses Diagnosis Abdominal pain, epigastric documented in this encounter Administered Medications Inactive Administered Medications - up to 3 most recent administrations Medication Order MAR Action Action Date Dose Rate Site HYDROmorphone (DILAUDID) injection Given 03/17/2011 1:50 AM CDT 0.4 mg 0.4 mg 0.4 mg, Intravenous, ONCE PRN, moderate to severe pain, Starting on Tue03/17/11 at 0119, For 1 dose lidocaine (XYLOCAINE) 2 % 15 mL, alum & mag Given 03/17/2011 3:04 AM CDT 30 mLs hydroxide-simethicone (MYLANTA ES/MAALOX ES) 15 mL GI Cocktail 30 mL, Oral, ONCE, On Tue03/17/11 at 0255, For 1 dose ondansetron (ZOFRAN) injection 4 mg Given 03/17/2011 1:48 AM CDT 4 mg 4 mg, Intravenous, ONCE PRN, nausea, vomiting, Starting on Tue03/17/11 at 0119, For 1 dose ondansetron (ZOFRAN) injection 4 mg Given 03/17/2011 3:30 AM CDT 4 mg 4 mg, Intravenous, ONCE, On Tue03/17/11 at 0316, For 1 dose sodium chloride 0.9 % BOLUS 1,000 New Bag 03/17/2011 1:47 AM C DT 1,000 mLs mL/hr mL Intravenous, 1,000 mL, ONCE, On Tue03/17/11 at 0120, For 1 dose, Wide Open documented in this encounter Active and Recently Administered Medications Times are shown in CDT. Scheduled Medication Order 03/15/2011 03/16/2011 03/17/2011 lidocaine (XYLOCAINE) 2 % 15 mL, alum & mag hydroxide-simethicone (MYLANTA ES/MAALOX ES) 15 mL GI Cocktail (COMPLETED) 0304 (Given - Provider: Khalif Torres RN) 30 mL, Oral, ONCE, On Tue03/17/11 at 0255, For 1 dose ondansetron (ZOFRAN) injection 4 mg (COMPLETED) 0330 (Given - Provider: Khalif Torres, RN) 4 mg, Intravenous, ONCE, On Tue03/17/11 at 0316, For 1 dose sodium chloride 0.9 % BOLUS 1,000 mL (CANCELED) 0147 (New Bag - Provider: Renetta Henriquez, [place]) Intravenous, 1,000 mL, ONCE, On Tue03/17/11 at 0120, For 1 dose, Wide Open PRN Medication Order 03/15/2011 03/16/2011 03/17/2011 HYDROmorphone (DILAUDID) injection 0.4 mg (COMPLETED) 0150 (Given - Provider: Renetta Henriquez, [place]) 0.4 mg, Intravenous, ONCE PRN, moderate to severe pain, Starting on Tue03/17/11 at 0119, For 1 dose ondansetron (ZOFRAN) injection 4 mg (COMPLETED) 0148 (Given - Provider: Renetta Henriquez, [place]) 4 mg, Intravenous, ONCE PRN, nausea, vom iting, Starting on Tue03/17/11 at 0119, For 1 dose documented in this encounter
--- OUTSIDE RECORDS SUMMARY | 2022-08-31 22:27 | XMS_ITS | Encounter Summary ---
:1990 Author Organization [place] Address [address] [place] [address] Care Team Providers Name Role Phone Primary Dr, Unknown MD Primary Care Provider Unavailable Reason for Visit Reason Comments Abrasion Encounter Details Date Type Department Care Team Description 03/19/2012 Emergency [facility] Rubi Will PA-C Skin rash Emergency Dept [address] [facility] [address] [place] [address] [place] [address] [phone] Social History Tobacco Use Types Packs/Day Years Used Date Smoking Tobacco: Former Cigarettes 0.1 Comments: 2-3 a day, cutting down 6-7-09 Alcohol Use Standard Drinks/Week Comments No 0 (1 standard drink = 0.6 oz pure alcoho l) Sex Assigned at Date Recorded Not on file documented as of this encounter Last Filed Vital Signs Vital Sign Reading Time Taken Comments Blood Pressure 115/67 03/19/2012 5:36 PM CDT Pulse - - Temperature 37.3 ??C (99.1 ??F) 03/19/2012 5:36 PM CDT Respiratory Rate - - Oxygen Saturation - - Inhaled Oxygen Concentration - - Weight - - Height - - Body Mass Index - - documented in this encounter Discharge Instructions AttachmentsThe following attachments cannot be sent through Care Everywhere. HIVES (IRISH)documented in this encounter Medications at Time of Discharge Medication Sig Dispensed Refills Start Date End Date Vit-Fe Take 1 tablet by 0 02/08/201204/2015 Sulfate-FA ( mouth daily. VITAMIN OR) documented as of this encounter ED Notes Rubi Will PA-C - 03/19/2012 5:40 PM CDT History Chief Complaint Patient presents with ??? Abrasion HPI Keyla Porter is a 21 year old female who presents to the clinic today for a rash for the last two days. She states that rash is intensely pruritic, which has lead to mild pain after itching. She denies any burning in the area. She denies any new known exposures such as soaps, detergents, foods, medications or rashes. Rash seems to improve with cold water showers. She was evaluated at [facility] yesterday and was given diagnosis of PUPPPS vs allergic urticaria. She was prescribed 20 mg of prednisone once daily, vistaril and hydrocortisone. She has not taken any of her medications in the last twenty four hours because she is concerned symptoms were worsening. Since then she complains of swelling in her wrists and ankles. She is ten weeks . Her EDC 10/10/12. Past Medical History Diagnosis Date ??? Adjustment disorder with depressed mood No current facility-administered medications on file. Current outpatient prescriptions Medication Sig ??? Vit-Fe Sulfate-FA ( VITAMIN OR) Take 1 tablet by mouth daily. History Substance Use Topics ??? Smoking status: Former Smoker -- 0.1 packs/day Types: Cigarettes ??? Smokeless tobacco: Not on file Comment: 2-3 a day, cutting down -05-29 ??? Alcohol Use: No I have reviewed the Medications, Allergies, Past Medical and Surgical History, and Social History inthe [employer] system. Review of Systems CONSTITUTIONAL:POSITIVE for chills and myalgias NEGATIVE for fever INTEGUMENTARY/SKIN: POSITIVE for generalized pruritic rash EYES: NEGATIVE for vision changes or irritation ENT/MOUTH: POSITIVE for sore throat and NEGATIVE for nasal congestion or ear pain RESP:NEGATIVE for significant cough or SOB GI: POSITIVE for new onset nausea and NEGATIVE for vomited, diarrhea or abdominal pain Physical Exam BP 115/67 Temp(Src) 99.1 ??F (37.3 ??C) (Oral) Physical Exam GENERAL: alert, no acute distress. SKIN: generalized papular and urticarial rash GENERAL APPEARANCE: healthy, alert and no distress EYES: EOMI, PERRL, conjunctiva clear NECK: supple, non-tender to palpation, no adenopathy noted RESP: lungs clear to auscultation - no rales, rhonchi or wheezes CV: regular rates and rhythm, normal S1 S2, no murmur noted ED Course Procedures Labs Ordered and Resulted from Time of ED Arrival Up to the Time of Departure from the ED - No data to display Assessments & Plan (with Medical Decision Making) I have reviewed the nursing notes. I have reviewed the findings, diagnosis, plan and need for follow up with the patient. New Prescriptions No medications on file Final diagnoses: Skin rash Suspect that this is allergic urticaria due to associated swelling. Patient was instructed that symptoms likely worsened because she was not on medication. She was instructed to continue her nadkvixobl33 mg daily for five days and take Vistaril or an OTC antihistamine as needed for itching. Follow upagain if no improvement in 3 days or sooner if new or worsening symptoms. Rubi Will PA-C 03/21/12 1338 documented in this encounter Plan of Treatment Not on filedocumented as of this encounter Visit Diagnoses Diagnosis Skin rash Rash and other nonspecific skin eruption documented in this encounter Care Teams Field Foreman Relationship Specialty Start Date End Date Primary Barbi Matamoros MD PCP - General 02/16/1207/26 documented as of this encounter
--- OUTSIDE RECORDS SUMMARY | 2022-08-31 22:27 | XMS_ITS | Encounter Summary ---
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 sweating, shaking, shortness of breath, derealization and depersonalization. She endorses no symptoms of seb, psychosis, eating disorders, ADD/ADHD, ODD or conduct disorder. She has had one prior episode similar to this current presentation before that required hospitalization. Besides these incidents, her depressive and anxious symptoms have not been severe enough to interfere with her daily functioning. There has been significant alcohol consumption (a liter of Jagermeister every two days), marijuana use and experimentation with a promethazine / codeine cough syrup mixture over the last 2 months in response to her inability to sleep. She has been on an antidepressant, Prozac, before for one month due to anxieties she washaving about raising her child as a single parent with minimal social support, yet she found it ineffective and stopped taking it. She reports a 40 lb unintentional weight loss over the last month which she attributes to anxiety and a lack of appetite from her hangovers. Social stressors include raising her three year old child as a single parent without any social support, stress over her deteriorating job performance attributable to excessive alcohol consumption and breaking up with her boyfriend.Though she has suicidal ideation with passive intent and plan, her love for her child compelled her to seek care. She would likely benefit from acute stabilization in the inpatient setting, an antidepressant to ameliorate her debilitating depressive symptoms and psychotherapy to improve her coping skills and provide emotional support. Current hospitalization is warranted due to persistent active SI in the context of a severe major depressive episode. Hospital course: Keyla Porter was admitted to station 20 under the care of Dr. Johnson as a voluntary patient, status 15, with an MSSA and suicide and self- injury precautions in place. Routine labswere ordered, as well as a routine IM consult. A nutritional consult was ordered in light of her reported weight loss. She was prescribed citalopram on 07/28, yet experienced nausea and stomach pain. Her dose was lowered, starting on 07/30. She was amenable to the suggestion to pursue psychotherapy. Current inpatient hospitalization is warranted due to persistent active SI in the context of a severe major depressive episode. Medical course: Keyla arrived at [facility] on 07/27. A HCG, UTox, CBC w/ autodiff, lipid panel, TSH w/ free T4 and CMP were ordered. A routine IM and nutrition were obtained on 07/28, with problems and recommendations listed below. Plan Principal Diagnosis: Major Depressive Disorder, severe, recurrent Scheduled Medications: Citalopram 10 mg starting 07/30 (dereased from 20 mg starting dose due to nausea and abd pain), goal to increase to 20mg pending GI symptom resolution PRN Medications: Trazodone 50 mg hs for sleep - as of 07/29 Olanzapine 10 mg q2 hrs for agitation Diazepam per [facility] protocol score - Laboratory/Imaging: None - Consults: None - Recommending outpatient therapy and psychiatry appointments - Patient will be treated in therapeutic milieu with appropriate individual and group therapies as described. Secondary psychiatric diagnoses of concern this admission: Polysubstance Use Plan: [facility], outpatient therapist that has training in working with CD Medical diagnoses to be addressed this admission: Medicine consult requested. Recs appreciated. # Weight loss -- Most likely related to decreased intake in setting of low mood, EtOH use - Regular diet with supplements, per nutrition consult #Endometriosis, h/o: - Tylenol and Ibuprofen prn - IUD Relevant psychosocial stressors: Single parenthood, working [employer], job stress, recent break up, recent loss of father Legal Status: Voluntary Safety Assessment: Checks: Status 15 Precautions: Suicide, Self-harm Pt has not required locked seclusion or restraints in the past 24 hours to maintain safety, please refer to engineering documentation specialist for further details. Anticipated Disposition/Discharge Date: Pending further clinical stabilization, tolerance of medication regimen, and adequate improvement of current symptoms. The risks, benefits, alternatives and side effects have been discussed and are understood by the patient and other caregivers. Attestation: Scribed by Galileo Hill, MS3, for Dr. Sandoval. ATTESTATION: I have reviewed and edited the documentation recorded by the scribe. This documentationaccurately reflects the services I personally performed and treatment decisions made by me in consultation with the attending physician. Pablo Sandoval MD/MPH PGY1, [facility] Psychiatry Pager: [phone] Attestation: This patient has been seen and evaluated by me, India Johnson MD. I have discussed this patient with the house staff team including the resident and medical student and I agree with the findings and plan in this note. I have reviewed today's vital signs, medications, labs and imaging. India Johnson MD Interim History: The patient's care was discussed with the treatment team and chart notes were reviewed. Reported sleep last night: 7 Psychotropic PRN's used: none - she reported feeling upset, numb and detached. She emphasized that she does not normally feel likethis, and that this depressive episode she has been experiencing is an extreme circumstance for her.She felt suicidal this morning. - she relayed that her father recently and that that has been upsetting for her. - her first trial with an antidepressant, Prozac, took place a month after giving . She was exceptionally stressed about raising her daughter and had no social support. She did not find the medication helpful at this time. - she feels like she 'needs to get better for [her] daughter.' - she became weepy when describing her emotional state leading up to her current inpatient hospitalization Review of systems: The Review of Systems is negative other than noted in the HPI Medications: Current Facility-Administered Medications Medication ??? [START ON 07/30/2015] citalopram (celeXA) tablet 10 mg ??? nicotine Patch in Place ??? [START ON 07/30/2015] nicotine patch REMOVAL ??? nicotine (NICODERM CQ) 7 MG/24HR 1 patch ??? ibuprofen (ADVIL,MOTRIN) tablet 600 mg ??? traZODone (DESYREL) tablet 50 mg ??? acetaminophen (TYLENOL) tablet 650 mg ??? magnesium hydroxide (MILK OF MAGNESIA) suspension 30 mL ??? OLANZapine (zyPREXA) tablet 10 mg Or ??? OLANZapine (zyPREXA) injection 10 mg ??? diazepam (VALIUM) tablet 5-20 mg ??? multivitamin, therapeutic with minerals (THERA-VIT-M) 1 tablet ??? folic acid (FOLVITE) tablet 1 mg Allergies: Allergies Allergen Reactions ??? [place]ou Psychiatric Examination: BP 114/70 mmHg Pulse 57 Temp(Src) 97.9 ??F (36.6 ??C) (Oral) Resp 16 Ht 1.702 m (5' 7) Wt62.143 kg (137 lb) BMI 21.45 kg/m2 SpO2 99% Weight is 137 lbs 0 oz Body mass index is 21.45 kg/(m^2). Appearance: awake, alert, adequately groomed and dressed in hospital scrubs Attitude: cooperative Eye Contact: fair Mood: depressed Affect: mood congruent; weepy; frustrated Speech: clear, coherent and normal prosody Psychomotor Behavior: no evidence of tardive dyskinesia, dystonia, or tics Thought Process: logical, linear and goal oriented Associations: no loose associations Thought Content: active suicidal ideation present, plan for suicide present, no auditory hallucinations present and no visual hallucinations present Insight: fair Judgment: intact Oriented to: time, person, and place Attention Span and Concentration: intact Recent and Remote Memory: intact Language: Normal [place] Fund of Knowledge: appropriate Muscle Strength and Tone: normal Gait and Station: Normal Labs: 07/27 - HCG negative - UTox positive for cannabinoids 07/28 - WBC low, otherwise CBC wnl - Albumin land alkaline phosphate low, otherwise CMP wnl - TSH wnl - Lipid panel wnl Margie Muñoz RD - 07/28/2015 9:24 AM CDT CLINICAL NUTRITION SERVICES - ASSESSMENT NOTE REASON FOR ASSESSMENT Keyla Porter is a 25 year old female seen by the dietitian for MD Order - Patient reports significant weight loss in the past month and wants to gain weight NUTRITION HISTORY - Information obtained from Patient and chart review. - Patient is on a regular diet at home. - Food allergies / intolerances: strawberry - Typical food/fluid intake is 2 meals per day plus snacks. Pt reports eating only one meal per day plus snacks for the last couple of months. -Pt with hx of ETOH use per chart review. CURRENT NUTRITION ORDERS - Diet:Regular-strawberry allergy - Intake/Tolerance: Per pt not able to eat much today due to nausea and emesis this am. She is agreeable to receiving nutrition supplements between meals--Ensure Clear (apple flavor). She states would like to gain some weight back. - Factors affecting nutrition intake include: Altered mood, hx ETOH use PHYSICAL FINDINGS Observed Thin appearance. ANTHROPOMETRICS Height: 5' 7 Current Weight: Not available Admission Weight: 137 lbs 0 oz(07/27) Body mass index is 21.45 kg/(m^2). IBW: 135 lbs % IBW: 101% Weight History: Recent weight hx not available per chart review, but on admission pt reported 40 lbsweight loss in the past month. Today she states her UBW is around 160 lbs, but recently had gained to around 170 lbs. This represents a 33 lb (19%) weight loss over 1-2 months which is severe. Wt Readings from Last 10 Encounters: 07/27/15 62.143 kg (137 lb) 05/03/12 72.213 kg (159 lb 3.2 oz) 05/07/10 60.963 kg (134 lb 6.4 oz) 04/08/10 62.143 kg (137 lb) 03/26/10 61.871 kg (136 lb 6.4 oz) 04/28/09 69.4 kg (153 lb) 04/16/09 70.943 kg (156 lb 6.4 oz) 03/24/09 69.763 kg (153 lb 12.8 oz) 03/03/09 69.4 kg (153 lb) 02/17/09 67.132 kg (148 lb) Dosing Weight: 62 kg (admission weight) LABS Labs reviewed MEDICATIONS Medications reviewed ASSESSED NUTRITION NEEDS: Estimated Energy Needs: 1873-7345 kcals (30-35 kcals per kg) Justification: maintenance/weight gain Estimated Protein Needs: 62-74 grams protein (1-1.2 g pro/Kg) Justification: maintenance/repletion with recent wt loss. Estimated Fluid Needs: (1 mL/Kcal) Justification: per MD pending fluid status NUTRITION STATUS VALIDATION % Intake:<75% for > 1 month - chronic illness non-severe malnutrition % Weight Loss: >5% in 1 month-severe malnutrition Subcutaneous Fat Loss: mild Muscle Loss: Unable to assess Fluid/Edema: None noted At least non-severe malnutrition in the context of social or environmental circumstances. Weight Status:Normal BMI NUTRITION DIAGNOSIS: Inadequate protein-energy intakes due decreased appetite with altered mood and ETOH use AEB per pt report of poor appetite and reduced intakes with severe 19% weight loss over the past 1-2 months. INTERVENTIONS Recommendations / Nutrition Prescription Regular Diet plus supplements and snacks with oral intakes to meet assessed nutritional needs. Recommend monitor for further nausea and need for anti-nausea medication. Implementation Nutrition education: Encouraged oral intakes at meals and of supplements plus snacks from unit as desired. Provided with 6 small feeding guideline with snack ideas and also tips to increase calories. Entered order for Ensure Clear apple flavor in afternoon and at HS daily. Goals 1. PO intakes >50% tid meals and 2 supplements daily. 2. Weight maintenance with gain (per pt preference) of 1-2 lbs per week. Follow up/Monitoring: Food intake, Fluid/beverage intake, Liquid meal replacement or supplement Weight trends. Margie Muñoz RD, LD Amirah Werner, [facility] - 07/28/2015 8:37 AM CDT Initial Psychosocial Assessment I have reviewed the chart, met with the patient, and developed Care Plan. Information for assessmentwas obtained from: Pt, medical record Presenting Problem: Keyla Porter is a 25 year old female with a significant past psychiatric history of depression and anxiety, and post depression who presents with suicidal ideation with thoughts of driving her car off of a bridge in the context of worsening depression. This is the patient's first psychiatric hospitalization as an adult although she was hospitalized as a teenager. Her stressors include being a single parent, moving to a new home, working [employer], job stress and recent break up. Patient reported that she does not have any outpatient providers including primary care provider, psychiatrist of therapist. In addition, she reports that aside from briefly being prescribed Prozac for post- depression, patient has not been prescribed psychotropic medications. She reports that she has been using a significant amount of Jagermeister to help her sleep at night. She also reported that she used marijuana and a mixture called Lean two days ago, which is reportedly uncharacteristic for her. Although she reports her last use of alcohol was two days ago and utox is currently negative,will place patient on MSSA precautions. In addition, patient has reported that she has lost a significant amount of weight which she attributes to worsening symptoms of depresion will order internal medicine consult and nutrition consult. Will defer to primary team to start any medications, patient will likely benefit from outpatient therapy and referral for outpatient psychiatry. History of Mental Health and Chemical Dependency: Substance Use History: Alcohol: none prior to recently Cannabis: none prior to recently Cocaine: None Stimulants: None Narcotics/Opium: None Sedatives/Hypnotics: None Hallucinogens: None Inhalants: None Tobacco: 1 pack every 4 days Prior Chemical Dependency Treatment: none Family History: Unsure, possibly mother has depression Father from multiple untreated aneurysms which ruptured due to cocaine use, mother struggled with methamphetamine for the past 15 years ago, sister had a methamphetamine problem but has been sober for over 6 years. Maternal aunt on everything unsure of diagnosis Significant Life Events (Illness, Abuse, Trauma, ): father when pt was 17, single parent, found friend aftersuicide Living Situation: moving from an apartment in [place] a [place]. 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 Legal Issues: none Ethnic/Cultural Issues: none Spiritual Orientation: Non-baptist, believes in higher power Service History: none Social Functioning (organization, interests): music, art, reading Current Treatment Providers are: none Social Service Assessment/Plan: Patient to track symptoms, utilize TIPP skills for anxiety, CTC to explore options for follow up, offer groups for coping skills Jairo Thompson - 07/27/2015 5:08 PM CDT 07/27/15 [id number] (R) Patient Belongings (R) Did you bring any home meds/supplements to the hospital? No (R) Patient Belongings other (see comments) (R) Belongings Search Yes With Patient on unit: -Blue jeans In Patient Locker #6: -Black flats -Flower tank top -Zenni case with lip balm, pink siphon operator, pen, earphones, $4.10 -Cellphone (2-samsung), cellphone collar padder blindstitch, ike cigarettes (5) -2 [place] ID's and E[place] card in black wallet, keys, toy helmet, blue headband, little pouch ADMISSION: I am responsible for any personal items that are not sent to the safe or pharmacy. [facility] is not responsible for loss, theft or damage of any property in my possession. Patient Signature Date/Time Staff Signature Date/Time 2nd Staff person, if patient is unable/unwilling to sign Date/Time DISCHARGE: All personal items have been returned to me. Patient Signature Date/Time Staff Signature Date/Time documented in this encounter H&P Notes Salvatore Mcdonnell MD - 07/27/2015 4:41 PM CDT [facility] Psychiatric History and Physical Name: Keyla Porter Age: [age] year old Date of : 1990 Date of Admission: 07/27/2015 Contacts: Primary Outpatient Psychiatrist: none Therapist: none Primary Physician: none [facility] CM: None Probation/Director Of Convention Services: None Family/Friends/Contacts: none Chief Complaint: fear of taking of my own life. Interviewed at 4:41 PM in the interview room History is obtained from the patient and electronic health record History of Present Illness: Keyla Porter is a 25 year old female with a significant past psychiatric history of depression and anxiety, and post depression who presents with suicidal ideation with thoughts of driving her car off of a bridge in the context of worsening depression. She reported that she began having suicidal ideation for the past 3 months. She reports that her anxiety has worsened 6 months ago with panic attacks, including hyperventilation, blacking out, fear of social situations and then depressive symptoms started 3 months. She reported that she does not currently have any outpatient providers including therapist or PCP. She reported that she was admitted to the Child and Adolescent unit for cutting 10 years ago and was briefly taking Prozac for post- depression for about a month after the of her daughter but discontinued it because she felt it wasn't helpful. Three days ago almost ran her car off a bridge, more of a physical thing, I didn't realize I was doing it and at first I didn't care I felt numb and didn't care then I started to hyperventilate and then pulled off the side of the road and decided to let it pass. This morning she reported, I woke up next to my kid and I don't know if I need to get better for her but I can't do this anymore, and decided to be hospitalized. She reported in the past 2 months have 1L of jagermeister about every 2 days and two days ago tried marijuana something called Lean a mixture of cough syrup, codeine and promethazine. She reports that she sleeps 1-2 hours of sleep, which is why she started drinking. She reports she has lost 40 lbs in the past month because she doesn't eatbut attributes it to,throwing up and hangovers all the time. She reports that she is actually trying to gain weight. She also reports that she is concerned about losing her job. 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 She reported that she has had to miss work frequently because, of situations with my daughter's father and the day care, I've had to miss a lot of work and my boss doesn't seem too happy. She reported that her daughter's father lives close to her butfeels he is not a good support. She also reported that she broke up with a boyfriend of 2 years earlier this summer. She reported that they used to live together and she has had to contact him because she is moving to a new home but reported that the conversations are all, one sided, I call him and he doesn't call me back. She reports that she is in the process of moving out of an apartment to a new home and that has beenstressful for her. She reports that she is currently living with a roommate but will be living alonewith her daughter at their new home. She reported that her daughter is currently staying with her sister. Patient reports feeling overwhelmed and hopeless and endorses thoughts of, hanging myself, overdosing on pills to the point of trying to figure out what to buy and how to do it and jumping off a bridge. Psychiatric History: Past Diagnoses: none since she was a teenager, post depression Past Hospitalizations: on the Child and Adolescent Unit as a teenager Prior use of Psychotropic Medications: Prozac Prior ECT: None Court Commitments: None Past suicide attempts: none Self-injurious behaviors: history of cutting as a teenager, started at age 10 History of violent/aggressive behaviors: none Substance Use History: Alcohol: none prior to recently Cannabis: none prior to recently Cocaine: None Stimulants: None Narcotics/Opium: None Sedatives/Hypnotics: None Hallucinogens: None Inhalants: None Tobacco: 1 pack every 4 days Prior Chemical Dependency Treatment: none Psychiatric Review of Systems: Depression: She feels hopeless, helpless, and worthless. She has low motivation, low energy and decreased interest in activities. She has been having significant ruminations and feelings of guilt. She endorses suicidal ideation. Suicide Risk: - Risk factors: single status and anxiety - Protective factors: commitment to family and absence of past attempts Anxiety: She endorses symptoms of anxiety in the setting of depression. Panic: Positive for racing heartbeat, sweating, shaking, shortness of breath, derealization and depersonalization Seb: No symptoms of racing thoughts, increase in goal-directed activity, or pressured speech. No history of seb. Psychosis: No auditory or visual hallucinations. No paranoia or delusions. PTSD: Negative for history of trauma, increased arousal and re-experiencing of trauma OCD: Positive checking, cleaning and counting, lists, routines, Eating Disorder: Negative for food restricting, binging and purging, refusal to maintain weight No history of ADD/ADHD No history or symptoms of ODD No history of conduct disorder Medical Review of Systems: The Review of Systems is negative other than noted in the HPI Past Medical History: Past Medical History Diagnosis Date ??? Adjustment disorder with depressed mood ??? Depression ??? Anxiety ??? Heart murmur ??? Chickenpox x2 ??? Papanicolaou smear of cervix with low grade squamous intraepithelial lesion (LGSIL) 05/03/12 Endometriosis No History of: head trauma with or without loss of consciousness and seizures Home Medications: No prescriptions prior to admission Allergies: Allergies Allergen Reactions ??? Caribou Family History: Unsure, possibly mother has depression Father from multiple untreated aneurysms which ruptured due to cocaine use, mother struggled with methamphetamine for the past 15 years ago, sister had a methamphetamine problem but has been sober for over 6 years. Maternal aunt on everything unsure of diagnosis Social History: Upbringing: Parents when she was 1 years old. Dad not in her life until age 10 or 11. Has astepbrother and stepmother Relationship: in 2006 Children: daughter going to be 3 in September Current Living Situation: moving from an apartment in [place] a [place] [facility]. 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 Financial Support: None Legal: None Abuse: None Lab Results: Results for orders placed or performed during the hospital encounter of 07/27/15 (from the past 24 hour(s)) Drug abuse screen 6 urine (tox) Result Value Ref Range Amphetamine Qual Urine NEG Negative Cutoff for a negative amphetamine is 500 ng/mL or less. Barbiturates Qual Urine NEG Negative Cutoff for a negative barbiturate is 200 ng/mL or less. Benzodiazepine Qual Urine NEG Negative Cutoff for a negative benzodiazepine is 200 ng/mL or less. Cannabinoids Qual Urine (A) NEG Positive Cutoff for a positive cannabinoid is greater than 50 ng/mL. This is an unconfirmed screening result to be used for medical purposes only. Cocaine Qual Urine NEG Negative Cutoff for a negative cocaine is 300 ng/mL or less. Ethanol Qual Urine NEG Negative Cutoff for a negative urine ethanol is 0.05 g/dL or less Opiates Qualitative Urine NEG Negative Cutoff for a negative opiate is 300 ng/mL or less. HCG qualitative urine Result Value Ref Range HCG Qual Urine Negative NEG Psychiatric Examination: Appearance: awake, alert and adequately groomed Psychomotor Behavior: no evidence of tardive dyskinesia, dystonia, or tics and intact station, gait and muscle tone Eye Contact: fair Attitude: cooperative but somewhat guarded Mood: depressed, hopeless, overwhelmed and anxious Affect: mood congruent, tearful Speech: Normal volume, clear, coherent Language: Gibraltarian is primary, communicates coherently in conversational context Thought Process: logical and linear, no loose associations Thought Content: plan for suicide present, endorses suicidal ideation Perceptions: no auditory hallucinations present and no visual hallucinations present Insight: limited Judgment: limited Oriented to: time, person, and place Attention Span and Concentration: intact Recent and Remote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 value of having them involved in their treatment plan, and provided options to meet their current needs/self identified goals. Plan of Care - Jessica Carter RN - 07/28/2015 9:11 PM CDT Problem: Depressive Symptoms Goal: Depressive Symptoms Signs and symptoms of listed problems will be absent or manageable. Outcome: Improving Pt states she is still feeling anxious and overwhelmed , denies si , states her 3 yr old daughter isher motivation to live . Pt has little support and wants to consult with telephonic case manager regarding childcare assistance and low income housing . She states she makes 14.00 per hour fulltime but unable to meet all her finacial needs, rent , 600.00 per month childcare and car expenses etc. Pt complains of feeling dehydrated, pushing fluids , mssa score 1 Plan of Care - Pippa Castle - 07/28/2015 2:45 PM CDT Problem: General Plan of Care (Inpatient Behavioral) Goal: Individualization/Patient Specific Goal (IP Behavioral) The patient and/or their client services representative will achieve their patient-specific goals related to the plan of care. The patient-specific goals include: Illness Management Recovery model: Objectives Patient will identify reason(s) for hospitalization from their perspective. Patient will identify a minimum of three goals for discharge. Patient will identify a minimum of three triggers that may increase their symptoms. Patient will identify a minimum of three coping skills they can do to stay well. Patient will identify their support system to demonstrate readiness for discharge. Illness Management Recovery model: Triggers. Patient identified the following triggers which may exacerbate their illness: 1. Having little support in caring for child 2. Lack of positive communication with child father Plan of Care - Amirah Werner LICSW - 07/28/2015 10:07 AM CDT Problem: General Plan of Care (Inpatient Behavioral) Goal: Team Discussion Team Plan: BEHAVIORAL TEAM DISCUSSION Continued Stay Criteria/Rationale: suicide attempt Plan: utilize TIPP skills, track symptoms daily, CTC to explore out pt services Participants: Amirah Werner CTC, RN Anh Martinez Illness Management Recovery model: Personal Plan of Care Patient completed Personal Plan of Care, identifying reasons for hospitalization and goals for discharge. Form reviewed in team meeting and signed by patient, physician, comic book writer and RN. Form given to SENIOR SYSTEM OPERATOR to be scanned into [employer]. Plan of Care - Amirah Werner LICSW - 07/28/2015 10:06 AM CDT Problem: General Plan of Care (Inpatient Behavioral) Goal: Individualization/Patient Specific Goal (IP Behavioral) The patient and/or their client services representative will achieve their patient-specific goals related to the plan of care. The patient-specific goals include: Illness Management Recovery model: Objectives Patient will identify reason(s) for hospitalization from their perspective. Patient will identify a minimum of three goals for discharge. Patient will identify a minimum of three triggers that may increase their symptoms. Patient will identify a minimum of three coping skills they can do to stay well. Patient will identify their support system to demonstrate readiness for discharge. Reason: suicide attempt, anxiety, depression, substance abuse Goals: to feel healthy, happier, learn to cope with anxiety and depression, not want to attempt suicide. Plan of Care - Jessica Wheat RN - 07/27/2015 5:56 PM CDT Problem: Depressive Symptoms Goal: Depressive Symptoms Signs and symptoms of listed problems will be absent or manageable. 25 yo female admitted on a voluntary basis. She is depressed and suicidal. She has had a breakup of a 2 year relationship. She is a single parent of a 3 yr old dre. Pt's sister has her dre. Now. She has been drinking heavily lately and she is a smoker. She has lost 40 pounds in the last mo. She doeslook thin and unkempt. She is articulate and cooperative. Pharmacy-Admission Medication History - Cb Sanabria RPH - 07/27/2015 4:31 PM CDT Admission Medication History status for the 07/27/2015 admission is complete. See [facility] admission navigator for Prior to Admission medications. Medication history interview sources: Patient Medication history source reliability: Good Additional medication history information (including reliability of information, actions taken by pharmacist): The patient reports taking no prescription or over the counter medications. Time spent in this activity: 5 min Medication history completed by: Cb Sanabria PharmChani, BCPS documented in this encounter Plan of Treatment Not on filedocumented as of this encounter Procedures Procedure Name Priority Date/Time Associated Comments Diagnosis CBC WITH PLATELETS & Routine 07/28/2015 7:19 AM Major depressi ve Results for this DIFFERENTIAL CDT disorder, single procedure a re in episode, severe the results without psychotic section. features (H) TSH WITH FREE T4 Routine 07/28/2015 7:19 AM Major depressive R esults for this REFLEX CDT disorder, single procedure a re in episode, severe the results without psychotic section. features (H) LIPID PROFILE Routine 07/28/2015 7:19 AM Major depressive Resu lts for this CDT disorder, single procedure a re in episode, severe the results without psychotic section. features (H) COMPREHENSIVE Routine 07/28/2015 7:19 AM Major depressive Resu lts for this METABOLIC PANEL CDT disorder, single procedur e are in episode, severe the results without psychotic section. features (H) HCG QUALITATIVE URINE STAT 07/27/2015 2:55 PM Results for this CDT procedure are i n the results section. DRUG ABUSE SCREEN 6 STAT 07/27/2015 2:55 PM Major depressiv e Results for this CHEM DEP URINE ([facility]) CDT disorder, single pr ocedure are in episode, severe the results without psychotic section. features (H) documented in this encounter Results (ABNORMAL) CBC with platelets differential (07/28/2015 7:19 AM CDT) [facility] gist Method Time Signature WBC 3.8 (L) 4.0 - [facility] 11.0 [facility] 10e9/L [facility] RBC Count 4.06 3.8 - 5.2 [facility] 10e12/L [facility] Hemoglobin 12.7 11.7 - [facility] 15.7 g/dL [facility] Hematocrit 38.0 35.0 - [facility] 47.0 % [facility] MCV 94 78 - 100 [facility] fl [facility] MCH 31.3 26.5 - [facility] 33.0 pg [facility] MCHC 33.4 31.5 - [facility] 36.5 g/dL [facility] RDW 12.5 10.0 - [facility] 15.0 % [facility] Platelet Count 166 150 - 450 [facility] 10e9/L [facility] Diff Method Automated [facility] % Neutrophils 47.2 % [facility] % Lymphocytes 42.6 % [facility] % Monocytes 8.6 % [facility] % Eosinophils 1.3 % [facility] % Basophils 0.3 % [facility] % Immature 0.0 % [facility] Granulocytes [facility] Absolute 1.8 1.6 - 8.3 [facility] Neutrophil 10e9/L [facility] Absolute 1.6 0.8 - 5.3 [facility] Lymphocytes 10e9/L [facility] Absolute 0.3 0.0 - 1.3 [facility] Monocytes 10e9/L [facility] Absolute 0.1 0.0 - 0.7 [facility] Eosinophils 10e9/L [facility] Absolute 0.0 0.0 - 0.2 [facility] Basophils 10e9/L [facility] Abs Immature 0.0 0 - 0.4 [facility] Granulocytes 10e9/L [facility] Specimen Anatomical Collection Method Collection Time Receive d Time (Source) Location / / Volume Laterality Blood specimen 07/28/2015 7:19 AM 015 7:21 (specimen) CDT AM CDT Esthela Copeland DO LAB - BLOOD ORDERABLES Performing Organization Address City/[facility]/ZIP Code Phon e Number [address] [address] [facility] Lipid panel (07/28/2015 7:19 AM CDT) athologist Signature Cholesterol 112 <200 mg/dL [facility] Comment: LDL Cholesterol is the primary guide to therapy. The NCEP recommends further evaluation of: patients with cholesterol greater than 200 mg/dL if additional risk facto rs are present, cholesterol greater than 240 mg/dL, triglycerides greater than 1 50 mg/dL, or HDL less than 40 mg/dL. Triglycerides 39 0 - 150 mg/dL [facility] HDL Cholesterol 65 >50 mg/dL [facility] LDL Cholesterol Calculated 39 0 - 129 mg/dL [facility] Comment: LDL Cholesterol is the primary guide to therapy: LDL-cholesterol goal in high risk patients is <100 mg/dL and in very high risk patients is <70 mg/dL. VLDL-Cholesterol 8 0 - 30 mg/dL [facility] Cholesterol/HDL Ratio 1.7 0.0 - 5.0 [facility] Specimen Anatomical Collection Method Collection Time Receive d Time (Source) Location / / Volume Laterality Blood specimen 07/28/2015 7:19 AM 015 7:21 (specimen) CDT AM CDT Esthela Copeland DO LAB - BLOOD ORDERABLES Performing Organization Address City/State/ZIP Code Phon e Number [address] [address] [facility] TSH with free T4 reflex and/or T3 as indicated (07/28/2015 7:19 AM CDT) athologist Signature TSH 1.88 0.40 - 4.[address] [facility] mU/L [facility] Specimen Anatomical Collection Method Collection Time Receive d Time (Source) Location / / Volume Laterality Blood specimen 07/28/2015 7:19 AM 015 7:21 (specimen) CDT AM CDT Esthela Copeland DO LAB - BLOOD ORDERABLES Performing Organization Address City/State/ZIP Code Phon e Number [address] (ABNORMAL) Comprehensive metabolic panel (07/28/2015 7:19 AM CDT) [facility] Method Time Signature Sodium 137 133 - 144 [facility] mmol/L [facility] Potassium 3.8 3.4 - 5.3 [facility] mmol/L [facility] Chloride 109 94 - 109 [facility] mmol/L [facility] Carbon Dioxide 25 20 - 32 [facility] mmol/L [facility] Anion Gap 3 3 - 14 [facility] mmol/L [facility] Glucose 95 70 - 99 [facility] mg/dL [facility] Urea Nitrogen 10 7 - 30 [facility] mg/dL [facility] Creatinine 0.62 0.52 - [facility] 1.04 [facility] mg/dL [facility] GFR Estimate >90 >60 [place] OF Non GFR Calc mL/min/1. [facility] 7m2 [facility] GFR Estimate If >90 >60 [place] OF Black GFR Calc mL/min/1. [place] [facility] 7m2 [facility] Calcium 8.5 8.5 - [facility] 10.1 [place] [facility] mg/dL [facility] Bilirubin Total 0.4 0.2 - 1.3 [facility] mg/dL [facility] Albumin 3.3 (L) 3.4 - 5.0 [facility] g/dL [facility] Protein Total 7.1 6.8 - 8.8 [facility] g/dL [facility] Alkaline 35 (L) 40 - 150 [facility] Phosphatase U/L [facility] ALT 26 0 - 50 [facility] U/L [facility] AST 16 0 - 45 [facility] U/L [facility] Specimen Anatomical Collection Method Collection Time Receive d Time (Source) Location / / Volume Laterality Blood specimen 07/28/2015 7:19 AM 015 7:21 (specimen) CDT AM CDT Esthela Copeland DO LAB - BLOOD ORDERABLES Performing Organization Address City/State/ZIP Code Phon e Number [facility] [address] [id number] [facility] HCG qualitative urine (07/27/2015 2:55 PM CDT) Analysis Performed At Patho logist Time Signature HCG Qual Urine Negative NEG [facility] Specimen Anatomical Collection Method Collection Time Receive d Time (Source) Location / / Volume Laterality Urine specimen URINE SPECIMEN / 07/27/2015 2:55 PM 04/2015 3:07 (specimen) Unknown CDT PM CDT Toni Nunez MD LAB - URINE ORDERABLES Performing Organization Address City/[facility] Phon e Number [address] [address] [facility] (ABNORMAL) Drug abuse screen 6 urine (tox) (07/27/2015 2:55 PM CDT) Component Value Ref Test [facility] Range Method Time Signature Amphetamine Qual Negative NEG [place] Urine Cutoff for a negative amphetamine is 500 ng/mL or less. OF [facility] Barbiturates Qual Negative NEG [place] Urine Cutoff for a negative barbiturate is 200 ng/mL or less. OF [facility] Benzodiazepine Negative NEG [facility] Qual Urine Cutoff for a negative benzodiazepine is 200 ng/mL or less. OF [facility] Cannabinoids Qual Positive NEG [place] Urine Cutoff for a positive cannabinoid is greater than 50 ng/mL. This is an [facility] unconfirmed screening result to be used for medical purpose s only. [facility] (A) [facility] Cocaine Qual Negative NEG [place] Urine Cutoff for a negative cocaine is 300 ng/mL or less. OF [facility] Ethanol Qual Negative NEG [place] Urine Cutoff for a negative urine ethanol is 0.05 g/dL or less OF [facility] Opiates Negative NEG [facility] Qualitative Urine Cutoff for a negative opiate is 300 ng/mL or less. OF [facility] Specimen Anatomical Collection Method Collection Time Receive d Time (Source) Location / / Volume Laterality Urine specimen URINE SPECIMEN / 07/27/2015 2:55 PM 04/2015 3:07 (specimen) Unknown CDT PM CDT Toni Nunez MD LAB - URINE ORDERABLES Performing Organization Address City/[facility] Phon e Number [address] [address] [facility] documented in this encounter Visit Diagnoses Diagnosis Persistent disorder of initiating or princess ntaining sleep - Primary Major depressive disorder, single episod e, severe without psychotic features (H) Major depressive disorder, single episod e, severe, without mention of psychotic behavior Personal history of tobacco use, present ing hazards to health Suicidal ideation documented in this encounter Administered Medications Inactive Administered Medications - up to 3 most recent administrations Medication Order MAR Action Action Date Dose Rate Site acetaminophen (TYLENOL) tablet 650 Given 08/03/2015 4:32 PM CDT 650 mg mg 650 mg, Oral, EVERY 4 HOURS PRN, mild pain, Starting on Tue07/27/15 at 1715, Do not use if the patient has significant liver disease. MAX acetaminophen = 4000 mg/24 hrs. MAX acetaminophen <3000 mg/24 hrs for patients > or = 65 years old. Maximum acetaminophen dose from all sources = 75 mg/kg/day not to exceed 4 grams/day. Given 07/31/2015 2:27 PM CDT 650 mg Given 07/29/2015 7:37 PM CDT 650 mg citalopram (celeXA) tablet 10 mg Given 07/31/2015 2:25 PM CDT 10 mg 10 mg, Oral, DAILY, First dose (after last modification) on Tue07/30/15 at 0800 Given 07/30/2015 8:36 AM CDT 10 mg citalopram (celeXA) tablet 20 mg Given 07/29/2015 8:37 AM CDT 20 mg 20 mg, Oral, DAILY, First dose on Tue07/28/15 at 0915 Given 07/28/2015 9:29 AM CDT 20 mg folic acid (FOLVITE) tablet 1 mg Given 08/01/2015 8:34 AM CDT 1 mg 1 mg, Oral, DAILY, First dose on Tue07/27/15 at 1730 Given 07/31/2015 10:26 AM CDT 1 mg Given 07/30/2015 8:35 AM CDT 1 mg ibuprofen (ADVIL,MOTRIN) tablet 600 mg Given 08/03/2015 7:47 PM CDT 600 mg 600 mg, Oral, EVERY 6 HOURS PRN, moderate pain, Starting on Tue07/28/15 at 1158 menthol (ICY HOT) 5 % patch 1 patch Given 08/04/2015 8:26 AM CDT 1 patch 1 patch, Topical, EVERY 8 HOURS PRN, muscle soreness, Starting on Marizol 07/31/15 at 1428, Apply to Skin. Remove 'old patch' and chart on Medication Patch Removal order when new patch is applied. Avoid placing heating pad over the patch. Given 08/03/2015 8:02 AM CDT 1 patch Given 08/02/2015 4:58 PM CDT 1 patch Other (see comments) menthol (ICY HOT) Patch in Place Given 08/01/2015 8:15 AM CDT First dose on Tue07/31/15 at 1430, Chart every shift, confirming that patch is still in place on patient (no barcode scan needed). See patch order for dose information. Given 07/31/2015 2:43 PM CDT multivitamin, therapeutic with minerals Given 08/01/2015 8:35 AM CDT 1 tablet (THERA-VIT-M) 1 tablet 1 tablet, Oral, DAILY, First dose on Tue07/27/15 at 1730 Given 07/31/2015 10:27 AM CDT 1 tablet Given 07/30/2015 8:35 AM CDT 1 tablet jfenyvui-agzxlumlup-gklifbjvc (NEOSPORIN) Given 07/30/2015 10:00 PM CDT ointment Topical, 3 TIMES DAILY PRN, signs of infection, Starting on Tue07/30/15 at 2143, Apply to affected area nicotine (NICODERM CQ) 7 MG/24HR 1 Given 08/04/2015 8:23 AM CDT 1 patch Right Arm patch 1 patch, Transdermal, DAILY, First dose on Tue07/29/15 at 1430 Given 08/03/2015 8:04 AM CDT 1 patch Left Arm Given 08/02/2015 8:32 AM CDT 1 patch Left Arm nicotine Patch in Place Given 08/01/2015 8:35 AM CDT First dose on Tue07/29/15 at 1430, Chart every shift, confirming that patch is still in place on patient (no barcode scan needed). See patch order for dose information. Given 07/31/2015 10:26 AM CDT Given 07/30/2015 8:37 AM CDT ranitidine (ZANTAC) tablet 150 mg Given 08/04/2015 8:23 AM CDT 150 mg 150 mg, Oral, 2 TIMES DAILY, First dose on Tue07/31/15 at 1430 Given 08/03/2015 9:09 PM CDT 150 mg Given 08/03/2015 8:03 AM CDT 150 mg thiamine tablet 100 mg Given 07/29/2015 8:37 AM CDT 100 mg 100 mg, Oral, DAILY, First dose on 07/27/15 at 1730, For 3 doses Given 07/28/2015 9:29 AM CDT 100 mg Given 07/27/2015 6:59 PM CDT 100 mg traZODone (DESYREL) tablet 100 mg Given 08/03/2015 9:10 PM CDT 100 mg 100 mg, Oral, AT BEDTIME PRN, sleep, Starting on Tue07/30/15 at 0918, May repeat x 1 Given 08/02/2015 9:04 PM CDT 100 mg Given 08/01/2015 8:28 PM CDT 100 mg traZODone (DESYREL) tablet 50 mg Given 07/29/2015 9:59 PM CDT 50 mg 50 mg, Oral, AT BEDTIME PRN, sleep, Starting on 07/27/15 at 1715, May repeat x 1 Given 07/29/2015 8:54 PM CDT 50 mg Given 07/28/2015 8:40 PM CDT 50 mg documented in this encounter Active and Recently Administered Medications Times are shown in CDT. Scheduled Medication Order 08/02/2015 08/03/2015 08/04/2015 nicotine (NICODERM CQ) 7 MG/24HR 1 patch 0832 (Given - Provider: Amrita Hernandez RN)2235 (Patch/Med Removed - Provider: Vickie Berkowitz RN) 08 (Given - Provider: Amrita Hernandez RN) 0823 (Given - Provider: Mindy Cortez) 1 patch, Transdermal, DAILY, First dose on Tue07/29/15 at 1430 ranitidine (ZANTAC) tablet 150 mg (CANCELED) 0830 (Giv en - Provider: Amrita Hernandez RN)2103 (Given - Provider: Vickie Berkowitz RN) 08 (Given - Provider: Amrita Hernandez RN)210 (Given - Provider: Vickie Berkowitz RN) 0823 (Given - Provider: Amrita Hernandez RN) 150 mg, Oral, 2 TIMES DAILY, First dose on Tue07/31/15 at 1430 PRN Medication Order 08/02/2015 08/03/2015 08/04/2015 acetaminophen (TYLENOL) tablet 650 mg (CANCELED) 1632 (Given - Provider: Vickie Berkowitz RN) 650 mg, Oral, EVERY 4 HOURS PRN, mild pa in, Starting on 07/27/15 at 1715, Do not use if the patient has significant liver disease. MAX acetaminophen = 4000 mg/24 hrs. MAX acetaminophen <3000 mg/24 hrs for patients > or = 65 years old. Ma ximum acetaminophen dose from all sources = 75 mg/kg/day not to exceed 4 grams/day. ibuprofen (ADVIL,MOTRIN) tablet 600 mg (CANCELED) 194 (Given - Provider: Vickie Berkowitz RN) 600 mg, Oral, EVERY 6 HOURS PRN, moderate pain, Starting on 07/28/15 at 1158 menthol (ICY HOT) 5 % patch 1 patch (CANCELED) 0831 (G iven - Provider: Amrita Hernandez RN)1658 (Given - Provider: Vickie Berkowitz RN) 0802 (Given - Provider: Amrita Hernandez RN) 0826 (Given - Provider: Amrita Hernandez, R N) 1 patch, Topical, EVERY 8 HOURS PRN, mus nehemiah soreness, Starting on Marizol 07/31/15 at 1428, Apply to Skin. Remove 'old patch' and chart on Medication Patch Removal order when new patch is applied. Avoid placing heating pad over the patch. 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
--- OUTSIDE RECORDS SUMMARY | 2022-08-31 22:27 | XMS_ITS | Encounter Summary ---
:1990 Author Organization [facility] Address [address] [place] [id number] Care Team Providers Name Role Phone Unavailable Primary Care Provider Unavailable Reason for Visit Reason Comments Loss of Vision awoke with blurred vision, l oss of visual field and right eye pain Encounter Details Date Type Department Care Team Description 12/16/2010 Emergency [facility] Dion Phillips Visual f ield defects; [facility] pt MD Alberto Unspecified visual field defect [address] [place] [address] [place] [address] [phone] (Wo rk) Social History Tobacco Use Types [...] Sign Reading Time Taken Comments Blood Pressure 112/67 12/16/2010 9:45 AM CAGE SUPERVISOR Pulse - - Temperature 36.7 ??C (98.1 ??F) 12/16/2010 7:33 AM CAGE SUPERVISOR Respiratory Rate 20 12/16/2010 7:33 AM CAGE SUPERVISOR Oxygen Saturation 99% 12/16/2010 7:33 AM CAGE SUPERVISOR Inhaled Oxygen Concentration - - Weight - - Height - - Body Mass Index - - documented in this encounter ED Notes Dion Phillips MD - 12/16/2010 9:44 AM CST Dictated Doin Phillips MD 12/16/10 0944 SUPERVISOR Dion Phillips MD - 12/16/2010 9:44 AM CAGE SUPERVISOR SUBJECTIVE: George Davila is a 20-year-old female whose past medical history is significant for adjustment disorder with depressed mood. She presents today with concerns of a sudden visual field loss shortly after awakening this morning. She describes multiple black areas and specifically the left eye inferiorly visual field and also the right eye central visual area. This is associated with a mild headache behind the right eye. She has been getting intermittent headaches, which she does not normally get, over the last week on an almost daily basis. There was mild nausea at the time was set this morning but no nausea now. There has been no vomiting at all. She had some initial blurred vision but that cleared relatively quickly. She does not feel there was any visual blurring or loss at the present time. She has had some mild cough and nasal congestion over the last 3 days. No fevers. She wears corrective lenses. Her last prescription was when she was in grade 8 and she is 20 now. PAST SURGICAL HISTORY, PAST MEDICAL HISTORY, ALLERGIES, MEDICATIONS: Reviewed in [facility]. FAMILY HISTORY: Taken by myself today that is notable for cerebral aneurysms as well as retinal detachment in multiple relatives. There is also family history for cancer but she did not know what types. PAST MEDICAL HISTORY: Endometriosis. REVIEW OF SYSTEMS: Pertinent as above. PHYSICAL EXAMINATION: GENERAL: The patient was alert, pleasant, no acute distress. VITAL SIGNS: Reviewed in [facility] with a temp of 98.1, respiration of 20, BP 112/63, O2 sat 99%, pulse is 75. HEENT: Oropharynx is clear. TMs are normal. Sinuses were nontender. Pupils are equal, round, reactive to light and accommodation. Extraocular movements are normal. Visual marie by confrontation are normal. Optic fundi with simple hand held white light ophthalmoscopy nondilated exam is normal. I see no abnormality of the fundi. Anterior chambers were clear. The cornea surfaces were normal bilaterally. I did not anya her lids. Visual acuity is reviewed. LABORATORIES: CBC, basic chemistry, magnesium, phosphorus are within normal limits. Her CRP is normal; however, her sedimentation rate is elevated today at 36. Head CT without contrast was performed and that was normal per Radiology. I spoke with Dr. Cramer for [facility] (Ophthalmology) and requested that he evaluate the patient. He requested that she be sent over to [facility], which was done. Further disposition is per Dr. Cramer. IMPRESSION: Visual field abnormalities (subjective). PLAN: The patient is transferred to Dr. Cramer of [facility] for further evaluation by Ophthalmology. All questions answered. DION PHILLIPS MD MT: [id number] Name: GEORGE DAVILA MRN: [id number] Account: [id number] : 1990 Visit Date: 12/16/2010 Document: [id number] SUPERVISOR Denise Heredia - 12/16/2010 8:40 AM CST Pt to ct SUPERVISOR Lyndsey Sy RN - 12/16/2010 7:35 AM CST Awoke with loss of vision and blurred vision SUPERVISOR documented in this encounter Plan of Treatment Not on filedocumented as of this encounter Procedures Procedure Name Priority Date/Time Associated Comments Diagnosis CT HEAD W/O CONTRAST STAT 12/16/2010 8:43 AM R esults for this CAGE SUPERVISOR procedure are i n the results section. CBC WITH PLATELETS & STAT 12/16/2010 8:01 AM R esults for this DIFFERENTIAL CAGE SUPERVISOR procedure are i n the results section. TSH STAT 12/16/2010 8:01 AM Results f or this CAGE SUPERVISOR procedure are i n the results section. INR STAT 12/16/2010 8:01 AM Results f or this CAGE SUPERVISOR procedure are i n the results section. PHOSPHORUS STAT 12/16/2010 8:01 AM Results f or this CAGE SUPERVISOR procedure are i n the results section. PARTIAL THROMBOPLASTIN STAT 12/16/2010 8:01 AM Results for this TIME CAGE SUPERVISOR procedure are i n the results section. MAGNESIUM STAT 12/16/2010 8:01 AM Results f or this CAGE SUPERVISOR procedure are i n the results section. HCG QUALITATIVE STAT 12/16/2010 8:01 AM Result s for this CAGE SUPERVISOR procedure are i n the results section. ERYTHROCYTE STAT 12/16/2010 8:01 AM Results f or this SEDIMENTATION RATE AUTO CAGE SUPERVISOR proc edure are in the results section. CRP INFLAMMATION STAT 12/16/2010 8:01 AM Resul ts for this CAGE SUPERVISOR procedure are i n the results section. COMPREHENSIVE METABOLIC STAT 12/16/2010 8:01 AM Results for this PANEL CAGE SUPERVISOR procedure are i n the results section. documented in this encounter Results CT Head w/o contrast* (12/16/2010 8:43 AM CAGE SUPERVISOR) Anatomical Region Laterality Modality Head, SUBRAD CT NEURO, SUBRAD CT NEURO, UMP CT NEURO Computed Tomography Specimen (Source) Anatomical Collection Method Collection Time Re ceived Time Location / / Volume Laterality 12/16/2010 8:43 AM CAGE SUPERVISOR Impressions 12/16/2010 8:48 AM CAGE SUPERVISOR HEAD CT WITHOUT IV ??CONTRAST Dec 16 8:43:00 AM COMPARISON: None. HISTORY: ??ocular headache,family histor y of cerebral aneurysm, TECHNIQUE: Axial CT images of the head f rom the skull base to the vertex were acquired without ??IV contra st. FINDINGS: ??The ventricles and basal cis terns are within normal limits in configuration. There is no midline sh ift. There are no extra-axial fluid collections. There is no evidence for acute intracranial hemorrhage. ??Dumont-white differentiation is well maintained. There is no sinusitis or mastoiditis. Th ere are no fractures of the visualized bones. IMPRESSION: ??Normal head CT. Dion Phillips MD IMG CT ORDERABLES HCG qualitative (12/16/2010 8:01 AM CAGE SUPERVISOR) [facility] gist Method Time Signature HCG Qualitative Negative NEG [facility] LAB Specimen Anatomical Collection Method Collection Time Receive d Time (Source) Location / / Volume Laterality Blood specimen 12/16/2010 8:01 AM 011 8:11 (specimen) CAGE SUPERVISOR AM CAGE SUPERVISOR Dion Phillips MD LAB - BLOOD ORDERABLES Performing Organization Address City/State/ZIP Code Phon e Number [facility] [address] [place], [place] [address] [facility] TSH (12/16/2010 8:01 AM CAGE SUPERVISOR) athologist Signature TSH 2.72 0.4 - 5.0 [facility] mU/L [facility] Specimen Anatomical Collection Method Collection Time Receive d Time (Source) Location / / Volume Laterality Blood specimen 12/16/2010 8:01 AM 011 8:11 (specimen) CAGE SUPERVISOR AM CAGE SUPERVISOR Dion Phillips MD LAB - BLOOD ORDERABLES Performing Organization Address City/State/ZIP Code Phon e Number [facility] [address] [place], [place] [address] [facility] (ABNORMAL) Comprehensive metabolic panel (12/16/2010 8:01 AM CAGE SUPERVISOR) athologist Signature Sodium 140 133 - 144 [facility] mmol/L [facility] Potassium 4.1 3.4 - 5.3 [facility] mmol/[facility] Chloride 106 94 - 109 [facility] mmol/L [facility] Carbon Dioxide 25 20 - 32 [facility] mmol/L [facility] Anion Gap 9 6 - 17 [facility] mmol/L [facility] Glucose 82 60 - 99 [facility] mg/dL [facility] Urea Nitrogen 17 5 - 24 [facility] mg/dL [facility] Creatinine 0.72 0.52 - [facility] 1.04 mg/dL [facility] Comment: New IDMS-traceable calibration beginning 03/21/08 GFR Estimate >90 >60 mL/min/1.7m2 [facility] GFR Estimate If Black >90 >60 mL/min/1.7m2 F [facility] Calcium 9.1 8.5 - 10.4 mg/dL [facility] Bilirubin Total <0.1 (L) 0.2 - 1.3 mg/dL [facility] Albumin 4.3 3.9 - 5.1 g/dL [facility] Protein Total 7.3 6.8 - 8.8 g/dL [facility] Alkaline Phosphatase 48 40 - 150 U/L [facility] ALT 34 0 - 50 U/L [facility] AST 30 0 - 45 U/L [facility] LAB Specimen Anatomical Collection Method Collection Time Receive d Time (Source) Location / / Volume Laterality Blood specimen 12/16/2010 8:01 AM 011 8:11 (specimen) CAGE SUPERVISOR AM CAGE SUPERVISOR Dion Phillips MD LAB - BLOOD ORDERABLES Performing Organization Address City/[facility]/ZIP Code Phon e Number [facility] [address] [place], [place] [address] [facility] Phosphorus (12/16/2010 8:01 AM CAGE SUPERVISOR) P athologist Signature Phosphorus 3.9 2.5 - 4.5 [facility] mg/dL [facility] Specimen Anatomical Collection Method Collection Time Receive d Time (Source) Location / / Volume Laterality Blood specimen 12/16/2010 8:01 AM 011 8:11 (specimen) CAGE SUPERVISOR AM CAGE SUPERVISOR Dion Phillips MD LAB - BLOOD ORDERABLES Performing Organization Address City/[facility]/ZIP Code Phon e Number [facility] [address] [place], [place] [address] [facility] Magnesium (12/16/2010 8:01 AM CAGE SUPERVISOR) P athologist Signature Magnesium 1.8 1.6 - 2.3 [facility] mg/dL [facility] Specimen Anatomical Collection Method Collection Time Receive d Time (Source) Location / / Volume Laterality Blood specimen 12/16/2010 8:01 AM 011 8:11 (specimen) CAGE SUPERVISOR AM CAGE SUPERVISOR Dion Phillips MD LAB - BLOOD ORDERABLES Performing Organization Address City/[facility]/ZIP Code Phon e Number [facility] [address] [place], [place] [address] [facility] Partial thromboplastin time (12/16/2010 8:01 AM CAGE SUPERVISOR) P athologist Signature PTT 27 22 - 37 sec [facility] LAB Specimen Anatomical Collection Method Collection Time Receive d Time (Source) Location / / Volume Laterality Blood specimen 12/16/2010 8:01 AM 011 8:11 (specimen) CAGE SUPERVISOR AM CAGE SUPERVISOR Dion Phillips MD LAB - BLOOD ORDERABLES Performing Organization Address City/[facility]/ZIP Code Phon e Number [facility] [address] [place], [place] [address] [facility] INR (12/16/2010 8:01 AM CAGE SUPERVISOR) P athologist Signature INR 0.95 0.86 - 1.14 [facility] Specimen Anatomical Collection Method Collection Time Receive d Time (Source) Location / / Volume Laterality Blood specimen 12/16/2010 8:01 AM 011 8:11 (specimen) CAGE SUPERVISOR AM CAGE SUPERVISOR Dion Phillips MD LAB - BLOOD ORDERABLES Performing Organization Address City/[facility] Phon e Number [facility] [address] [place], [place] [address] [facility] CRP inflammation (12/16/2010 8:01 AM CAGE SUPERVISOR) athologist Signature CRP Inflammation <5.0 0.0 - 8.0 [place] mg/L [facility] LAB Specimen Anatomical Collection Method Collection Time Receive d Time (Source) Location / / Volume Laterality Blood specimen 12/16/2010 8:01 AM 011 8:11 (specimen) CAGE SUPERVISOR AM CAGE SUPERVISOR Dion Phillips MD LAB - BLOOD ORDERABLES Performing Organization Address City/[facility]/ZIP Code Phon e Number [facility] [address] [place], [place] [address] [facility] (ABNORMAL) Erythrocyte sedimentation rate auto (12/16/2010 8:01 AM CAGE SUPERVISOR) P athologist Signature Sed Rate 36 (H) 0 - 20 mm/h [facility] Specimen Anatomical Collection Method Collection Time Receive d Time (Source) Location / / Volume Laterality Blood specimen 12/16/2010 8:01 AM 011 8:11 (specimen) CAGE SUPERVISOR AM CAGE SUPERVISOR Dion Phillips MD LAB - BLOOD ORDERABLES Performing Organization Address City/[facility] Phon e Number [facility] [address] [place], [place] [address] [facility] (ABNORMAL) CBC with platelets differential (12/16/2010 8:01 AM CAGE SUPERVISOR) Patholo gist Method Time Signature WBC 3.8 (L) 4.0 - [place] 11.0 [place] 10e9/L [facility] RBC Count 4.09 3.8 - 5.2 [place] 10e12/L [facility] Hemoglobin 12.6 11.7 - [place] 15.7 g/dL [facility] Hematocrit 37.4 35.0 - [place] 47.0 % [facility] MCV 91 78 - 100 [place] fl [facility] MCH 30.8 26.5 - [facility] 33.0 pg [facility] MCHC 33.7 31.5 - [place] 36.5 g/dL [facility] RDW 12.3 10.0 - [place] 15.0 % [facility] Platelet Count 204 150 - 450 [place] 10e9/L [facility] Diff Method Automated [facility] LAB % Neutrophils 46.2 40 - 75 % [facility] % Lymphocytes 40.7 20 - 48 % [facility] % Monocytes 10.1 0 - 12 % [facility] % Eosinophils 1.9 0 - 6 % [facility] % Basophils 1.1 0 - 2 % [facility] Absolute 1.8 1.6 - 8.3 [place] Neutrophil 10e9/L [facility] Absolute 1.5 0.8 - 5.3 [place] Lymphocytes 10e9/L [facility] Absolute 0.4 0.0 - 1.3 [place] Monocytes 10e9/L [facility] Absolute 0.1 0.0 - 0.7 [place] Eosinophils 10e9/L [facility] Absolute 0.0 0.0 - 0.2 [place] Basophils 10e9/L [facility] Specimen Anatomical Collection Method Collection Time Receive d Time (Source) Location / / Volume Laterality Blood specimen 12/16/2010 8:01 AM 011 8:11 (specimen) CAGE SUPERVISOR AM CAGE SUPERVISOR Dion Phillips MD LAB - BLOOD ORDERABLES Performing Organization Address City/State/ZIP Code Phon e Number [facility] [address] [place], [place] [address] [facility] documented in this encounter Visit Diagnoses Diagnosis Visual field defects Visual field defect, unspecified Visual field defect, unspecified documented in this encounter
--- OUTSIDE RECORDS SUMMARY | 2022-08-31 22:27 | XMS_ITS | Encounter Summary ---
:1990 Author Organization [place] Address [facility] [place] [address] Care Team Providers Name Role Phone Primary Dr, Barbi WAYNE Primary Care Provider Unavailable Reason for Visit Reason Comments Care Encounter Details Date Type Department Care Team Description 05/03/2012 Office [facility] Dorene Fournier ervision of other normal (Primary Dx); Visit Clinic Gaurang Lee MD ASCUS on Pap smear [address] [facility] [address] [address] [place], [place] [phone] [id number] Social History Tobacco Use Types Packs/Day Years [...] Sign Reading Time Taken Comments Blood Pressure 125/73 05/03/2012 1:12 PM CDT Pulse 100 05/03/2012 1:12 PM CDT Temperature - - Respiratory Rate - - Oxygen Saturation - - Inhaled Oxygen Concentration - - Weight 72.2 kg (159 lb 3.2 oz) 05/03/2012 1:12 PM CDT Height 168.9 cm (5' 6.5) 05/03/2012 1:12 PM CDT Body Mass Index 25.31 05/03/2012 1:12 PM CDT documented in this encounter Patient Instructions Patient InstructionsMaDorene cast MD - 05/03/2012 5:10 PM CDT Labs today Ultrasound in 3 weeks documented in this encounter Progress Notes Dorene Fournier MD - 05/03/2012 5:04 PM CDT SUBJECTIVE: George Davila is an 21 year old female here for initial OB visit. She has been seen during this for bleeding at 6 weeks US established dating Estimated Date of Delivery: Oct 10, 2012 Past Medical History of Father of Baby: No significant medical history Review of Systems: ROS: 10 point ROS neg other than the symptoms noted above in the HPI. History Since Last Menstrual Period: No Problems EXAM: Blood pressure 125/73, pulse 100, height 5' 6.5 (1.689 m), weight 159 lb 3.2 oz (72.213 kg), last menstrual period 01/04/2012. GENERAL APPEARANCE: healthy, alert and no distress EYES: EOMI, PERRL HENT: ear canals and TM's normal and nose and mouth without ulcers or lesions NECK: no adenopathy, no asymmetry, masses, or scars and thyroid normal to palpation RESP: lungs clear to auscultation - no rales, rhonchi or wheezes BREAST: normal without masses, tenderness or nipple discharge and no palpable axillary masses or adenopathy CV: regular rates and rhythm, normal S1 S2, no S3 or S4 and no murmur, click or rub - ABDOMEN: soft, nontender, no HSM or masses and bowel sounds normal : normal cervix, adnexae, and uterus without masses or discharge MS: extremities normal- no gross deformities noted, no evidence of inflammation in joints, FROM in all extremities. SKIN: no suspicious lesions or rashes NEURO: Normal strength and tone, sensory exam grossly normal, mentation intact and speech normal PSYCH: mentation appears normal and affect normal/bright LYMPHATICS: No axillary, cervical, inguinal, or supraclavicular nodes Pelvix exam: Perineum: Intact; Vulva: Normal; Vagina: Normal mucosa, no discharge, Cervix: Nulliparous, closed, mobile, no discharge; Uterus: 17 weeks, Normal shape, position and consistency; Adnexa: Normal; Rectum: Normal without lesion or mass; Bony Pelvis: Adequate and Gynecoid. ASSESSMENT/ PLAN: Follow up in 4 weeks. Normal exercise. Normal sexual activity. vitamins. US for Anatomic screen in 3 weeks Sexual History S: George is a 21 year old y/o, G 2, P 0100. She is 17 weeks today based on US @ 6 weeks George has been feeling well. She works . Family is healthy and supportive. Her aunt was here today [facility]. Assessment: vitamins: Is taking them. Diet: Regular diet, no history of an eating disorder. Adequate calcium intake discussed. She has notbeen referred to meet with the skilled trades teacher. Transportation issues: no Safe relationship: yes feels safe in current relationship. She has no history of abusive relationhips. Financial Concerns: no Insurance: yes Social Service/Public Health: yes She is not a smoker. She is planning to breastfeed her baby. Discussed wt. gain and exercise, caffeine, cat litter, choosing a baby doctor, toxic substances. O: Physical Exam: Appropriate affect and grooming. Good eye contact during interview. There is no Lymph adenopathy, or thyromegaly. Lungs are clear bilaterally, heart has regular rate and rhythm. Breasts are slightly tender, related to the . Abdomen is soft without masses. External genitalia is without lesions, discharge is normal. Pap smear was obtained. . CT/GC obtained. Cervix appeared normal. Uterine size is consistant with dates, no adenexal masses. Early dating US was obtained at an earlier date. A: 1. Appropriate and health seeking behaviors toward her 2. Verbalizes understanding of care schedule, and the importance of coming to each visit as scheduled. 3. Supportive relationship with her SO and family Plan:1. Discussed materials in the new OB folder, proper diet, exercise and enc. her to abstain fromalcohol. We also discussed childbirth ed. classes, she was given dates today. 2. Her next appointment will be in 4 weeks with me. She was enc. to call with any questions. Referrals: None Daniella Ruiz - 05/03/2012 1:04 PM CDT 1st ob appt. GC and Pap due today. documented in this encounter Nursing Notes 05/03/2012 1:00 PM CDT >> DANIELLA ELIZABETH Wed May 03, 2012 1:17 PM Initial BP 125/73 Pulse 100 Ht 5' 6.5 (1.689 m) Wt 159 lb 3.2 oz (72.213 kg) BMI 25.31 kg/m2 LMP 01/04/2012 Estimated Body mass index is 25.31 kg/(m^2) as calculated from the following: Height as of this encounter: 5' 6.5(1.689 m). Weight as of this encounter: 159 lb 3.2 oz(72.213 kg). . documented in this encounter Plan of Treatment Not on filedocumented as of this encounter Procedures Procedure Name Priority Date/Time Associated Comments Diagnosis PAP IMAGED THIN Routine 05/03/2012 1:46 PM ASCUS on Pap smear Results for this LAYER, DIAGNOSTIC CDT Supervision of procedur e are in other normal the results section. NEISSERIA GONORRHOEAE Routine 05/03/2012 1:45 PM ASCUS o n Pap smear Results for this PCR CDT Supervision of procedure are in other normal the results section. CHLAMYDIA TRACHOMATIS Routine 05/03/2012 1:45 PM ASCUS o n Pap smear Results for this PCR CDT Supervision of procedure are in other normal the results section. RUBELLA ANTIBODY IGG Routine 05/03/2012 1:42 PM ASCUS on Pap smear Results for this CDT Supervision of procedure are in other normal the results section. MATERNAL QUAD MARKER Routine 05/03/2012 1:42 PM ASCUS on Pap smear Results for this 2ND TRIMESTER CDT Supervision of procedure ar e in other normal the results section. HIV 1 AND 2 ANTIBODY Routine 05/03/2012 1:42 PM ASCUS on Pap smear Results for this (QUEST) CDT Supervision of procedure are in other normal the results section. HEPATITIS B SURFACE Routine 05/03/2012 1:42 PM ASCUS on Pap smear Results for this ANTIGEN CDT Supervision of procedure are in other normal the results section. ANTI TREPONEMA Routine 05/03/2012 1:42 PM ASCUS on Pap smear Results for this CDT Supervision of procedure are in other normal the results section. CBC WITH PLATELETS Routine 05/03/2012 1:42 PM ASCUS on P ap smear Results for this CDT Supervision of procedure are in other normal the results section. ABO/RH TYPE AND Routine 05/03/2012 1:41 PM ASCUS on Pap smear Results for this SCREEN CDT Supervision of procedure are in other normal the results section. URINE CULTURE Routine 05/03/2012 1:28 PM ASCUS on Pap smear Results for this CDT Supervision of procedure are in other normal the results section. URINE MICROSCOPIC Routine 05/03/2012 1:20 PM ASCUS on Pa p smear Results for this CDT Supervision of procedure are in other normal the results section. UA MACROSCOPIC WITH Routine 05/03/2012 1:20 PM ASCUS on Pap smear Results for this REFLEX TO MICRO CDT Supervision of procedure are in other normal the results section. documented in this encounter Results (ABNORMAL) PAP imaged thin layer, diagnostic (05/03/2012 1:46 PM CDT) Component Value Ref Test Analysis Performed At [facility] MyTinks Method Time Signature PAP LSIL (A) [facility]ATH [facility] Name: GEORGE DAVILA MR#: [id number] Specimen #: [id number] Collected: 05/03/2012 Received: 05/04/2012 Reported: 05/08/2012 19:38 Ordering Phy(s): DORENE FOURNIER SPECIMEN/STAIN PROCESS: Pap Imaged thin layer prep diagnostic (SurePath, FocalPoint with guided screening) ? Pap-Cyto x 1, Reflex HPV x 1 SOURCE: Cervical, endocervical ---- Pap Imaged thin layer prep diagnostic (SurePath, FocalPoint with guided screening) SPECIMEN ADEQUACY: Satisfactory for evaluation. -Transformation zone component present. CYTOLOGIC INTERPRETATION: Epithelial Cell Abnormality: ??Squamous Cell: ??Low-grade sq uamous intraepithelial lesion (LSIL) encompassing: ??HPV/ mild dysp lasia/ MICHELE 1. ? Organism(s): -Fungal organisms morphologically consistent with Karla sp p. Electronically signed out by: Shaneka Farfan M.D. Processed and screened at [facility] CLINICAL HISTORY: LMP: 2-14-12 , Previous ASC-US Date of Last Pap: 03-03-09, Papanicolaou Test Limitations: ??Cervical cytology is a scre ening test with limited sensitivity; regular screening is critical for cancer prevention; Pap tests are primarily effective for the diagnosis/prevention of squamous cell carcinoma, not adenoca rcinomas or other cancers. TESTING LAB LOCATION: [facility] [address], [place] [address] [place] Phone: ??[phone] COLLECTION SITE: Client: ??[facility] Location: [facility] () Specimen (Source) Anatomical Collection Method Collection Time Re ceived Time Location / / Volume Laterality Cytologic 05/03/2012 1:46 05/04/2012 2 :42 material PM CDT PM CDT (specimen) Dorene Fournier MD LAB - OPTIME CLINICAL SPECIM EN Performing Organization Address City/State/ZIP Code Phon e Number [place] Chlamydia trachomatis PCR (05/03/2012 1:45 PM CDT) Component Value Ref Test Analysis Performed At [facility] Range Method Time Signature Specimen Cervix [facility] LAB Chlamydia Negative for C. trachomatis rRNA by manufacturing maintenance mechanic mediated amplification. [facility] Trachomatis A negative result by transc ription mediated amplification does not preclude the MICROBIOLOGY PCR presence of C. trachomatis infection because results are dependent on proper and adequate collection, absence of inhibitors, and suffici ent rRNA to be detected. Specimen Anatomical Collection Method Collection Time Receive d Time (Source) Location / / Volume Laterality Cervical swab 05/03/2012 1:45 PM 05/03/20 12 1:55 (specimen) CDT PM CDT Dorene Fournier MD LAB - MICRO GENERAL ORDERABL ES Performing Organization Address City/State/ZIP Code Phon e Number [facility] [address] [place] [address] [facility] LAB [facility] MICROBIOLOGY Neisseria gonorrhoeae PCR (05/03/2012 1:45 PM CDT) Component Value Ref Test Analysis Performed At [facility] Range Method Time Signature Specimen Cervix [facility] LAB N Gonorrhea Negative for N. gonorrhoeae rRNA by manufacturing maintenance mechanic mediated amplification. [facility] PCR A negative result by transc ription mediated amplification does not preclude the MICROBIOLOGY presence of N. gonorrhoeae infection because re sults are dependent on proper and adequate collection, absence of inhibitors, and suffici ent rRNA to be detected. Specimen Anatomical Collection Method Collection Time Receive d Time (Source) Location / / Volume Laterality Cervical swab 05/03/2012 1:45 PM 05/03/20 12 1:55 (specimen) CDT PM CDT Dorene Fournier MD LAB - MICRO GENERAL ORDERABL ES Performing Organization Address City/State/ZIP Code Phon e Number [facility] [address] [place], [place] [id number] [place] [address] LAB [facility] MICROBIOLOGY Maternal quad screen (05/03/2012 1:42 PM CDT) [facility] Cavis microcaps Method Time Signature Pt Date of [facility] Patient Weight 159 [facility] Due Date [facility] Dating Method US [facility] Last Mens Period [facility] Twins No [facility] Race of Mother [facility] Diabetic at No [facility] Fam History Of No [place] NTD [facility] Prev Hx No [place] Chromosome [facility] LAB Alpha Feto 27 [place] Protein [facility] Comment: Unit: ng/mL MoM for AFP 0.77 [facility] BHCG [address] [facility] Comment: Unit: IU/L MoM For HCG 0.86 [facility] Estriol 0.80 [facility] Comment: Unit: ng/mL MoM uE3 0.73 [facility] AFP Interpretation Normal [facility] (Note) [facility] LAB ?Maternal Serum Quad Screen (AFP/hCG/uE3/GABE) ? NORMAL SCREEN Risks ? Pre-test ?Post-test ? (Cu toff) Open NTD ?1 in 900 ? <1 in [address] Down Syndrome ?? 1 in 1100 ? 1 in 2800 ? (1 in 150) Trisomy 18 ?1 in [address] ?? <1 in [address] ?(1 in 100 ) Assuming the patient information listed is correct, this maternal serum screen is within normal limits. ??The interpretation is based on maternal age, gestational age, maternal weight, the presence or absence of insulin requiring maternal diabetes, maternal race, and number of fetuses, if known. Specimen Iteration First [facility] Maternal Age 24.2 [facility] Comment: Unit: yr Dating US [facility] Estimated Due Date [facility] Gest Age Exact 17.14 [facility] Comment: Unit: weeks Patient Weight 159 [facility] Comment: Unit: lbs Insulin Diabetic No [facility] S [facility] Fam History of NTD No [facility] Prev Hx Chromosome abnormality No [facility] Maternal Race White [facility] Num of Fetuses One [facility] Dimeric Inhibin A 182 [facility] ES [facility] LAB Comment: Unit: pg/mL MoM Dimeric Inhibin A 1.12 [facility] Electronic Enhanced Report See Note [facility] (Note) [facility] To download an enhanced report for this test go to: [email or web address] [email or web address] Performed by [facility], [address] [place] [id number] [email or web address], Dasha Ivy MD, Lab. Director Specimen Anatomical Collection Method Collection Time Receive d Time (Source) Location / / Volume Laterality Blood specimen 05/03/2012 1:42 PM 012 1:44 (specimen) CDT PM CDT Dorene Fournier MD LAB - BLOOD ORDERABLES Performing Organization Address City/State/ZIP Code Phon e Number [place] [phone] [facility] Rubella antibody IgG (05/03/2012 1:42 PM CDT) P athologist Signature Rubella JIAN 20 IU/mL [facility] IgG CAMPUS LABS Comment: Interpretation: Positive, Immun e Specimen Anatomical Collection Method Collection Time Receive d Time (Source) Location / / Volume Laterality Blood specimen 05/03/2012 1:42 PM 012 1:44 (specimen) CDT PM CDT Dorene Fournier MD LAB - BLOOD ORDERABLES Performing Organization Address City/State/ZIP Code Phon e Number [facility] [address] LABS Hepatitis B surface antigen (05/03/2012 1:42 PM CDT) Analysis Performed At Patho logist Time Signature Hep B Surface Negative NEG [facility] Agn [facility] LABS Specimen Anatomical Collection Method Collection Time Receive d Time (Source) Location / / Volume Laterality Blood specimen 05/03/2012 1:42 PM 012 1:44 (specimen) CDT PM CDT Dorene Fournier MD LAB - BLOOD ORDERABLES Performing Organization Address City/State/ZIP Code Phon e Number [facility] [address] LABS HIV 1 and 2 Antibody (05/03/2012 1:42 PM CDT) Analysis Performed At Patho logist Time Signature HIV 1&2 Negative NEG [facility] Antibody [facility] LABS Specimen Anatomical Collection Method Collection Time Receive d Time (Source) Location / / Volume Laterality Blood specimen 05/03/2012 1:42 PM 012 1:44 (specimen) CDT PM CDT Dorene Fournier MD LAB - BLOOD ORDERABLES Performing Organization Address City/State/ZIP Code Phon e Number [facility] [address] [place], [place] [phone] [place] [address] LABS (ABNORMAL) CBC with platelets (05/03/2012 1:42 PM CDT) Analysis Performed At [facility] Signature WBC 6.0 4.0 - 11.0 [facility] 10e9/L [facility] RBC Count 3.59 (L) 3.8 - 5.2 [facility] 10e12/L [facility] Hemoglobin 11.4 (L) 11.7 - [facility] 15.7 g/dL [facility] LAB Hematocrit 32.3 (L) 35.0 - [facility] 47.0 % [facility] MCV 90 78 - 100 [facility] fl [facility] MCH 31.8 26.5 - [facility] 33.0 pg [facility] MCHC 35.3 31.5 - [facility] 36.5 g/dL [facility] RDW 12.7 10.0 - [facility] 15.0 % [facility] Platelet Count 191 150 - 450 [place] 10e9/L [facility] Specimen Anatomical Collection Method Collection Time Receive d Time (Source) Location / / Volume Laterality Blood specimen 05/03/2012 1:42 PM 012 1:44 (specimen) CDT PM CDT Dorene Fournier MD LAB - BLOOD ORDERABLES Performing Organization Address City/State/ZIP Code Phon e Number [place] [phone] [facility] Anti treponema EIA (05/03/2012 1:42 PM CDT) Analysis Performed At [facility] Signature Treponema Negative NEG [facility] Antibody [place] LABS Specimen Anatomical Collection Method Collection Time Receive d Time (Source) Location / / Volume Laterality Blood specimen 05/03/2012 1:42 PM 012 1:44 (specimen) CDT PM CDT Dorene Fournier MD LAB - BLOOD ORDERABLES Performing Organization Address City/State/ZIP Code Phon e Number [address] [address] [facility] LABS ABO/Rh type and screen (05/03/2012 1:41 PM CDT) Component Value Ref Test Analysis Performed At [facility] Range Method Time Signature ABO A [facility] RH(D) Pos [facility] Antibody Screen Pos [facility] LAB Specimen Expires 05/06/2012 [facility] Blood Bank Sent to Reference Lab [facility] Comment IGG POS, C3 POS. ELUTION NOT INDICATED. [facility] LABS [place] Broad Pos 1+ [facility] Spectrum [facility]S [place] Anti-IgG Pos 1+ [facility] [place] Anti-C3 Pos 1+ [facility] Antibody Unidentified Antibody Present [facility] Identification Antibody with no identifiable specific reactivity. [facility] LABS Specimen Anatomical Collection Method Collection Time Receive d Time (Source) Location / / Volume Laterality Blood specimen 05/03/2012 1:41 PM 012 1:43 (specimen) CDT PM CDT Dorene Fournier MD LAB - BLOOD BANK TEST ORDER Performing Organization Address City/[facility]/ZIP Code Phon e Number [facility] [address] [place] [address] [facility] Urine culture (05/03/2012 1:28 PM CDT) Component Value Ref Test Analysis Performed At [facility] Method Time Signature Specimen Midstream Urine [facility] LAB Culture Micro <10,000 colonies/mL Mixed gram positive jero [place] No Beta hemolytic Streptococcus [facility] LAB Micro Report FINAL 05/05/2012 [facility] LAB Specimen Anatomical Collection Method Collection Time Receive d Time (Source) Location / / Volume Laterality Urine specimen 05/03/2012 1:28 PM 012 1:30 (specimen) CDT PM CDT Dorene Fournier MD LAB - MICRO GENERAL ORDERABL ES Performing Organization Address City/[facility]/ZIP Code Phon e Number [facility] [address] [place], [place] [address] [facility] (ABNORMAL) Urine Microscopic (05/03/2012 1:20 PM CDT) [facility] Method Time Signature WBC Urine 2-5 (A) 0 - 2 [facility] /HPF [facility] RBC Urine O - 2 0 - 2 [place] /HPF [facility] Squamous Moderate (A) FEW /LPF [facility] [place] /LPF Urine [facility] Bacteria Urine Few (A) NEG /HPF [facility] Mucous Urine Present (A) NEG /LPF [facility] Specimen Anatomical Collection Method Collection Time Receive d Time (Source) Location / / Volume Laterality 05/03/2012 1:20 PM 2 1:30 CDT PM CDT Dorene Fournier MD LAB - URINE ORDERABLES Performing Organization Address City/[facility] Phon e Number [address] [phone] [facility] (ABNORMAL) *UA relfex to Microscopic (05/03/2012 1:20 PM CDT) [facility] Method Time Signature Color Urine Yellow [facility] Appearance Urine Clear [facility] Glucose Urine Negative NEG mg/dL [facility] Bilirubin Urine Negative NEG [facility] Ketones Urine Negative NEG mg/dL [facility] Specific [place] >1.030 1.003 - [place] Urine 1.035 [facility] Blood Urine Negative NEG [facility] pH Urine 6.0 5.0 - 7.0 [place] pH [facility] Protein Albumin 30 (A) NEG mg/dL [facility] LAB Urobilinogen 0.2 0.2 - 1.0 [place] Urine EU/dL [facility] Nitrite Urine Negative NEG [facility] Leukocyte Negative NEG [place] Esterase Urine [facility] Source Midstream [place] Urine [facility] Specimen Anatomical Collection Method Collection Time Receive d Time (Source) Location / / Volume Laterality Urine specimen 05/03/2012 1:20 PM 012 1:30 (specimen) CDT PM CDT Dorene Fournier MD LAB - URINE ORDERABLES Performing Organization Address City/[facility]/ZIP Code Phon e Number [address] [phone] [facility] documented in this encounter Visit Diagnoses Diagnosis Supervision of other normal - Primary ASCUS on Pap smear Papanicolaou smear of cervix with atypic al squamous cells of undetermined significance (ASC-US) documented in this encounter Care Teams Front Desk Clerk Relationship Specialty Start Date End Date Primary Dr, Unknown, MD PCP - General 02/16/1207/26 documented as of this encounter
--- OUTSIDE RECORDS SUMMARY | 2022-08-31 22:27 | XMS_ITS | Encounter Summary ---
:1990 Author Organization [place] Address [facility] [place] [address] Care Team Providers Name Role Phone No Ref-Primary, Physician Primary Care Provider [phone] Reason for Visit Reason Comments RECHECK Encounter Details Date Type Department Care Team Description 10/31/2015 Office Visit [facility] Orion Puente, Olu lvic pain in female (Primary Dx); AND SURGERY CINDI WAYNE Preop examination [employer] [address] [place] [address] [place] [address] Social History Tobacco Use Types [...] Sign Reading Time Taken Comments Blood Pressure 122/74 10/31/2015 3:12 PM PENSIONS RETIREMENT PLAN SPECIALIST Pulse - - Temperature - - Respiratory Rate - - Oxygen Saturation - - Inhaled Oxygen Concentration - - Weight 64 kg (141 lb) 10/31/2015 3:12 PM PENSIONS RETIREMENT PLAN SPECIALIST Height 167.6 cm (5' 6) 10/31/2015 3:12 PM PENSIONS RETIREMENT PLAN SPECIALIST Body Mass Index 22.76 10/31/2015 3:12 PM PENSIONS RETIREMENT PLAN SPECIALIST documented in this encounter Progress Notes Orion Puente MD - 10/31/2015 3:38 PM CST The patient is a 25-year-old [...] laser for evaluationof her pain and dyspareunia. IONS RETIREMENT PLAN SPECIALIST documented in this encounter Nursing Notes Nohelia Haydee - 10/31/2015 3:13 PM CST Chief Complaint Patient presents with ??? RECHECK Initial BP 122/74 mmHg Ht 5' 6 (1.676 m) Wt 141 lb (63.957 kg) BMI 22.77 kg/m2 ? No Estimated body mass index is 22.77 kg/(m^2) as calculated from the following: Height as of this encounter: 5' 6 (1.676 m). Weight as of this encounter: 141 lb (63.957 kg). BP completed using cuff size: carla Pozo MA 10/31/2015 IONS RETIREMENT PLAN SPECIALIST documented in this encounter Plan of Treatment Not on filedocumented as of this encounter Procedures Procedure Name Priority Date/Time Associated Diagnosis Comme nts HEMOGLOBIN Routine 10/31/2015 3:45 PM Preop examination Resu lts for this PENSIONS RETIREMENT PLAN SPECIALIST procedure are i n the results section . documented in this encounter Results Hemoglobin (10/31/2015 3:45 PM PENSIONS RETIREMENT PLAN SPECIALIST) P athologist Signature Hemoglobin 12.2 11.7 - 15.7 GORDO g/dL CLINICS-[facility] PERINATAL SPECIALIST SURG Specimen Anatomical Collection Method Collection Time Receive d Time (Source) Location / / Volume Laterality Blood specimen 10/31/2015 3:45 PM 015 3:47 (specimen) PENSIONS RETIREMENT PLAN SPECIALIST PM PENSIONS RETIREMENT PLAN SPECIALIST Orion Puente MD LAB - BLOOD ORDERABLES Performing Organization Address City/State/ZIP Code Phon e Number [facility] PERINATAL SPECIALIST SURG documented in this encounter Visit Diagnoses Diagnosis Pelvic pain in female - Primary Unspecified symptom associated with fema le genital organs Preop examination Preoperative examination, unspecified documented in this encounter Additional Health Concerns Assessment Noted Time PHQ-9 Depression Total Score: 19 09/04/2015 7:20 AM CD T documented as of this encounter Care Teams Plastic Block Boiler Reliner Relationship Specialty Start Date End Date No Ref-Primary, Physician PCP - General 07/27/15 04/14/20 documented as of this encounter
--- OUTSIDE RECORDS SUMMARY | 2022-08-31 22:27 | XMS_ITS | Encounter Summary ---
:1990 Author Organization [place] Address [address] [facility] [place] [address] Care Team Providers Name Role Phone Primary Dr, Unknown MD Primary Care Provider Unavailable Reason for Visit Reason Onset Date Comments Hip Pain 05/02/2012 Encounter Details Date Type Department Care Team Description 05/02/2012 Telephone [facility] Women's Andres son, Kaushal Lee MD [facility] [place] [address] [facility] [address] [facility] [place] [address] [place] [address] [phone] Social History Tobacco Use Types Packs/Day Years Used Date Smoking Tobacco: Every Day Cigarettes 0.1 Comments: smoking 10cig/day- down to 1-2 with Alcohol Use Standard Drinks/Week Comments Yes 0 (1 standard drink = 0.6 oz pure 5-6 dr francesca weekly- quit with alcohol) Sex Assigned at Date Recorded Not on file documented as of this encounter Miscellaneous Notes Telephone Encounter - Jaqui Rubio RN - 05/02/2012 4:15 PM CDT Pt is 15 Weeks . Pt reporting she started having hip pain 3 days ago. Pt reports it is bilateral and has gradually gotten worse. Pt reports she went to work last night and was only able to work 1/2 hour of her shift asshe was in so much pain that it brought her to tears. Pt reports I thought my legs were going to give out and I would fall down. Pt reports she needs a work note for tonight as she is not able to goto work again due to the pain. Pt reports occasionally pain will radiate around to her front side and shoot through her abdomen. Pt has 1st OB appt tomorrow with [facility]. Pt denies vaginal bleeding, menstrual like contractions or LOF. Pt denies low back pain. Advised pt to UC/ED if unable to work tonight due to the pain. Pt reports understanding and agreeable. Will follow up in UC. Jaqui Rubio [facility] RN Telephone Encounter - Imelda Alexander - 05/02/2012 4:12 PM CDT 17 wks - last 3 days gradual hip pain and now unbearable to walk or bend over. Had to leave work yesterday. Wondering if she should go into the ER? Please call. Thanks- -Imelda Alexander [facility] Crystal Growing Technician documented in this encounter Plan of Treatment Not on filedocumented as of this encounter Visit Diagnoses Not on filedocumented in this encounter Care Teams Aquatics Lifeguard Relationship Specialty Start Date End Date Primary Barbi Matamoros MD PCP - General 02/16/1207/26 documented as of this encounter
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
--- OUTSIDE RECORDS SUMMARY | 2022-08-31 22:27 | XMS_ITS | Encounter Summary ---
:1990 Author Organization [place] Address [address] [facility] [place] [address] Care Team Providers Name Role Phone No Ref-Primary, Physician Primary Care Provider [phone] Reason for Visit Reason Comments Headache Pain Encounter Details Date Type Department Care Team Description 08/26/2015 Office Visit [facility] Arpita Marc epressive disorder, recurrent episode, moderate (H) (Primary Dx); Clinic Asif Degroot MD CAMERON (generalised anxiety dis order); [address] Persistent disorder of initi ating or maintaining sleep; [address] Migraine without aura and wi thout status migrainosus, not intractable; [place], [place]ometri[place] [id number] Social History Tobacco Use Types Packs/Day Years Used Date Smoking Tobacco: Every Day Cigarettes 0.1 Smokeless Tobacco: Never Tobacco Cessation: Ready to [...] Sign Reading Time Taken Comments Blood Pressure 116/79 08/26/2015 1:09 PM CDT Pulse 80 08/26/2015 1:09 PM CDT Temperature 36.8 ??C (98.3 ??F) 08/26/2015 1:09 PM CDT Respiratory Rate 18 08/26/2015 1:09 PM CDT Oxygen Saturation 100% 08/26/2015 1:09 PM CDT Inhaled Oxygen Concentration - - Weight 61.9 kg (136 lb 8 oz) 08/26/2015 1:09 PM CDT Height 170.2 cm (5' 7) 08/26/2015 1:09 PM CDT Body Mass Index 21.38 08/26/2015 1:09 PM CDT documented in this encounter Patient Instructions Patient InstructionsAbdoul Layne - 08/26/2015 1:40 PM CDT I increased dose of Trazodone to 1.5 tablets (150 mg) nightly. Start Buspar 15 mg two times daily. Follow up with Dr. Marc in two weeks. documented in this encounter Progress Notes Arpita Marc MD - 08/26/2015 1:10 PM CDT SUBJECTIVE: Keyla Porter is a 25 year old female who presents to clinic today to establish care for the following health issues: Depression and Anxiety ?? She is recently discharged from hospital in July 2015 for depression and suicidal ideation. She was admitted from July 27 to . She is here for a hospital follow up. Patient states heranxiety has not changed since her hospital stay. She was given Celexa in hospital, but when she started having stomach cramps, it was discontinued. Pt states there was a plan to start Buspar during hospitalization, but it was not started. patient would like to discuss starting Buspar. ?? Pt states she has been prescribed Prozac in the past for depression, but had to discontinue due to intolerable nausea. She has not been on medications specifically for anxiety. ?? Patient states that in spite her anxiety the fear of failure gets me to go [to work] and I don't want to let my daughter down, I don't want to end up like my mom. Patient states her mother is apiece of shit and is a drug abuser. Patient also has an older sister with same issues as her mother. She feels that her mother and sister guilt and blame her. Patient states she recently cut her mother out of her daughter's life. ?? Patient has friends who are supportive of her decision to remain estranged from her mother. Patient has a boyfriend of two years who has been supportive. Recently had to move out of apartment that they shared due to making too much money, is now living alone with her daughter. ?? Other associated symptoms: Shaking, isolating, and rapid heart rate. ?? Complicating factors: Single mother, raising three year old daughter alone. Family issues, as above. ?? Significant life event: Recent hospital admission, as above. ?? Current substance abuse: None. Pt has been taking Trazodone 100 mg with intermittent effectiveness. Patient can sleep for 5-6 hourswhen Trazodone works, uninterrupted. Discussed increased dose of Trazodone, she expresses willingness PHQ-9 SCORE 08/26/2015 Total Score 22 CAMERON-7 SCORE 08/26/2015 Total Score 15 PHQ-9 [place] PHQ-9 Any Language GAD7 ?? Amount of exercise or physical activity: 2-3 days/week for an average of 30- 45 minutes ?? Problems taking medications regularly: Yes, remembering to take medications. ?? Medication side effects: none. ?? Diet: regular (no restrictions) Headache/Migraines ?? Onset: One month ?? Description: Location: unilateral in the right frontal area Character: throbbing, sharp pain Frequency: One weekly with sudden onset it feels like someone comes up to me and smacks me with a brick. Duration: hours ?? Intensity: severe ?? Progression of Symptoms: worsening ?? Accompanying Signs & Symptoms: Stiff neck: YES Neck or upper back pain: YES Fever: no Sinus pressure: no Nausea or vomiting: YES Dizziness: YES Numbness: no Weakness: no Visual changes: YES Other: Photosensitivity and sleeping difficulty. ?? History: Head trauma: no. Family history of migraines: YES. Previous tests for headaches: YES- spinal tap, head CT. Neurologist evaluations: no Able to do daily activities: no Wake with a headaches: no Do headaches wake you up: no Daily pain medication use: no Work/school stressors/changes: no ?? Precipitating factors: Does light make it worse: YES. Does sound make it worse: no. ?? Alleviating factors: Does sleep help: no. Other: Ice and darkness help somewhat. ?? Therapies Tried and outcome: Ibuprofen (Advil, Motrin),. Endometriosis Pain Duration of complaint: Since the age of 14. [facility] Patient has been going into ED as needed for endometriosis. Problem list and histories reviewed & adjusted, as indicated. 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 Patient Active Problem List Diagnosis ??? ADJUSTMENT DISORDER WITH DEPRESSED MOOD ??? ASCUS on Pap smear ??? CARDIOVASCULAR SCREENING; LDL GOAL LESS THAN 160 ??? Supervision of normal first ??? Suicidal ideation Past Surgical History Procedure Laterality Date ??? C oral surgery procedure ??? Dilation and curettage suction, treat incomplete 2008 ??? Laparotomy exploratory 03/2010 ??? Colonoscopy History Substance Use Topics ??? Smoking status: Current Every Day Smoker -- 0.10 packs/day Types: Cigarettes ??? Smokeless tobacco: Never Used Comment: smoking 10cig/day- down to 1-2 with ??? Alcohol Use: Yes Comment: 5-6 drinks weekly- quit with Family History Problem Relation Age of Onset ??? Blood Disease Paternal Grandfather anemia ??? Cancer Paternal Grandfather lung and skin ??? Diabetes Paternal Grandmother ??? Cerebrovascular Accident Father also brain aneurysm ??? Cerebrovascular Accident Paternal Grandfather also [place] ??? Depression Mother ??? Alcohol/Drug Mother meth ??? Alcohol/Drug Father drugs Current Outpatient Prescriptions Medication Sig Dispense Refill ??? IBUPROFEN PO Take 400 mg by mouth as needed for moderate pain ??? traZODone (DESYREL) 100 MG tablet Take 1 tablet (100 mg) by mouth nightly as needed for sleep 30tablet 0 ??? nicotine (NICODERM CQ) 7 MG/24HR patch 2h hr Place 1 patch onto the skin daily 30 patch 0 Allergies Allergen Reactions ??? Morphine Unknown ??? [place] BP Readings from Last 3 Encounters: 08/26/15 116/79 07/28/15 114/70 05/03/12 125/73 Wt Readings from Last 3 Encounters: 08/26/15 136 lb 8 oz (61.916 kg) 08/03/15 139 lb (63.05 kg) 05/03/12 159 lb 3.2 oz (72.213 kg) Labs reviewed in [facility] Problem list, Medication list, Allergies, and Medical/Social/Surgical histories reviewed in [facility] andupdated as appropriate. ROS: Constitutional, HEENT, cardiovascular, pulmonary, GI, , musculoskeletal, neuro, skin, endocrine and psych systems are negative, except as otherwise noted. This document serves as a record of the services and decisions personally performed and made by Arpita Marc MD. It was created on her behalf by Abdoul Layne, a trained certified medical biller. The creation of this document is based the provider's statements to the certified medical biller. Abdoul Layne 1:18 PM August 26, 2015 OBJECTIVE: BP 116/79 mmHg Pulse 80 Temp(Src) 98.3 ??F (36.8 ??C) (Oral) Resp 18 Ht 5' 7 (1.702 m) Wt136 lb 8 oz (61.916 kg) BMI 21.37 kg/m2 SpO2 100% ? No Body mass index is 21.37 kg/(m^2). GENERAL: healthy, alert and appears anxious and depressed. Recent complete exam and workup for migraines at [facility] with CT and LP. PSYCH: MENTAL STATUS EXAM Appearance:as above, wearing glasses, neat and well groomed, Attitude: cooperative, tearful during visit Behavior: sitting quietly in chair, flicking pen against her fingers repeatedly Eye Contact: good Speech: regular rate and volume Orientation: to person, place, time Mood: anxious and depressed, as above Affect: Mood congruent Thought Process: logical, tight associations Insight: good Judgement: good Suicidal Ideation: None Hallucination: None Diagnostic Test Results: none ASSESSMENT/PLAN: (F33.1) Major depressive disorder, recurrent episode, moderate (primary encounter diagnosis) Comment: patient has taken Prozac in the past which she needed to discontinue due to nausea. Celexa in hospital caused stomach cramps, SSRIs were discontinued and due to pt appearing to have improved sx, no other medication was started. She requests buspar, which was suggested in the hospital. Plan: Will begin Buspar for patient's anxiety and monitor depressive sx. (F41.1) CAMERON (generalised anxiety disorder) Comment: patient has not been prescribed a medication for anxiety in the past Plan: busPIRone (BUSPAR) 15 MG tablet two times a day (G47.00) Persistent disorder of initiating or maintaining sleep Comment: patient has had difficulty sleeping Plan:take 1.5 tablets of traZODone (DESYREL) 100 MG (G43.009) Migraine without aura and without status migrainosus, not intractable Comment: patient has had headaches with sudden onset for the past month, possibly related to anxiety, has had a recent workup at [facility], had CT and LP, diagnosed as migraines. Has had about one weekly Plan: continue Ibuprofen, increase trazodone, will monitor for symptoms and status as anxiety is treated. (N80.9) Endometriosis Comment: since 14 years of age, unable to address today due to time shortage Plan: follow up next visit regarding management options for patient pain Patient Instructions I increased dose of Trazodone to 1.5 tablets (150 mg) nightly. Start Buspar 15 mg two times daily. Follow up with Dr. Marc in two weeks. Greater than 40 minutes was spent with this patient, with greater than 50 % in counselling about patient's recent hospitalization, depression, anxiety headaches and family life. The information in this document, created by the certified medical biller for me, accurately reflects the services I personally performed and the decisions made by me. I have reviewed and approved this document for accuracy prior to leaving the patient care area . Dr. Arpita Marc, August 26, 2015 1:18 PM Arpita Marc MD, MD [facility] documented in this encounter Nursing Notes Breanna Lovell - 08/26/2015 1:10 PM CDT Chief Complaint Patient presents with ??? Headache ??? Pain Initial BP 116/79 mmHg Pulse 80 Temp(Src) 98.3 ??F (36.8 ??C) (Oral) Resp 18 Ht 5' 7 (1.702m) Wt 136 lb 8 oz (61.916 kg) BMI 21.37 kg/m2 SpO2 100% ? No Estimated body mass index is 21.37 kg/(m^2) as calculated from the following: Height as of this encounter: 5' 7 (1.702 m). Weight as of this encounter: 136 lb 8 oz (61.916 kg). BP completed using cuff size: regular(rt0 LIZBET GREEN documented in this encounter Plan of Treatment Not on filedocumented as of this encounter Visit Diagnoses Diagnosis Major depressive disorder, recurrent epi sode, moderate (H) - Primary Major depressive disorder, recurrent epi sode, moderate CAMERON (generalised anxiety disorder) Generalized anxiety disorder Persistent disorder of initiating or dara ntaining sleep Migraine without aura and without status migrainosus, not intractable Migraine without aura, without mention o f intractable migraine without mention of status migrainosus Endometriosis Endometriosis, site unspecified documented in this encounter Additional Health Concerns Assessment Noted Time PHQ-9 Depression Total Score: 22 08/27/2015 7:24 AM CD T documented as of this encounter Care Teams Offbearer Sewer Pipe Relationship Specialty Start Date End Date No Ref-Primary, Physician PCP - General 07/27/15 04/14/20 documented as of this encounter
--- OUTSIDE RECORDS SUMMARY | 2022-08-31 22:27 | XMS_ITS | Encounter Summary ---
:1990 Author Organization [place] Address [address] [place] [address] Care Team Providers Name Role Phone Primary Dr, Barbi MD Primary Care Provider Unavailable Reason for Referral - Closed Specialty Diagnoses / Procedures Referred By Contact Refer red To Contact Diagnoses ASCUS on Pap smear Supervision of other normal Kaushal Christopher MD Procedures US OB 14 + weeks single or first gestation [address] [place], [place] [address] Referral ID Status Reason Start Date Expiration Date Visits Requ ested Visits Authorized [id number] Closed 05/03/2012 10/30/2012 1 1 Reason for Visit - Closed Specialty Diagnoses / Procedures Referred By Contact Refer red To Contact Diagnoses ASCUS on Pap smear Supervision of other normal Kaushal Christopher MD Procedures US OB 14 + weeks single or first gestation [address] [place], [place] [address] Referral ID Status Reason Start Date Expiration Date Visits Requ ested Visits Authorized [id number] Closed 05/03/2012 10/30/2012 1 1 Encounter Details Date Type Department Care Team Description 05/23/2012 Hospital Encounter [facility] Kaushal Henderson ASCUS on Pap smear; [place] Ricco Lee MD Supervision of other normal [address] [place] [address] [place] [address] [phone] Social History Tobacco Use Types Packs/Day Years [...] Start Date End Date acetaminophen (TYLENOL) Take 1-2 tablets by 0 07/27/2015 325 MG tablet mouth every 6 hours as needed. Vit-Fe Sulfate-FA Take 1 tablet by 0 07/27/2015 ( VITAMIN OR) mouth daily. documented as of this encounter Progress Notes Kaushal Christopher MD - 05/31/2012 10:02 AM CDTEncounter addended by: Kaushal Christopher MD on: 05/31/2012 10:02 AM
Documentation filed: Orders documented in this encounter Plan of Treatment Not on filedocumented as of this encounter Procedures Procedure Name Priority Date/Time Associated Diagnosis Comme nts US OB > 14 WEEKS Routine 05/23/2012 10:58 AM ASCUS on Pa p smear Results for this CDT Supervision of other procedu re are in normal the results section. documented in this encounter Results US OB 14 + weeks single or first gestation (05/23/2012 10:58 AM CDT) Anatomical Region Laterality Modality Abdomen/Pelvis Ultrasound Specimen (Source) Anatomical Collection Method Collection Time Re ceived Time Location / / Volume Laterality 05/23/2012 10:58 AM CDT Impressions 05/23/2012 11:17 AM CDT US OB 2-3 TRIMESTER-1 May 23, 2012 10:58: 00 AM HISTORY: Screening. TECHNIQUE: For the survey portion of the study routine assessed structures include intracranial anatomy (ventricles, cerebellum, and cisterna magna), spine, stomach, kidneys , bladder, four chambered heart, three vessel cord, cord insertion site, and anterior abdominal wall. Growth ratios between the BPD, HC, AC, and FL are also routinely assessed. Any growth ratios that are abn ormal are reported. COMPARISON: 02/16/12. FINDINGS: There is a single live intraut erine in a cephalic presentation of approximately 19 weeks a nd 4 days gestation. heart rate is 147 beats per minute. The survey shows no abnormality. Volume of amniotic fluid is normal. ??The placenta is posterior. The cervical length is approx imately 4.0 cm. The head circumference is measuring 19 w eeks and 5 days. The abdominal circumference is measuring 18 weeks and 6 days. The head circumference to abdominal circumference ratio is 1.28 (1.09-1.26). IMPRESSION: There is a single live intra uterine of approximately 19 weeks and 4 days gestat ion. survey is normal. There is mild asymmetry in ??growth, as described above. No anatomic reason for this is seen. Followup ultras ound in 4 weeks is suggested to assess for any continuing trend. Kaushal Christopher MD IMG US ORDERABLES documented in this encounter Visit Diagnoses Diagnosis ASCUS on Pap smear Papanicolaou smear of cervix with atypic al squamous cells of undetermined significance (ASC-US) Supervision of other normal documented in this encounter Care Teams Sweat Band Sewer Relationship Specialty Start Date End Date Primary Barbi Matamoros, PCP - General 02/16/1207/26 documented as of this encounter
--- OUTSIDE RECORDS SUMMARY | 2022-08-31 22:27 | XMS_ITS | Encounter Summary ---
:1990 Author Organization [place] Address [address] [place] [address]. [place] [address] Care Team Providers Name Role Phone No Ref-Primary, Physician Primary Care Provider Holland Thomas MD Primary Care Provider [phone] Encounter Details Date Type Department Care Team Description 10/28/2015 [facility] Service Line [address] [place] [phone] Social History Tobacco Use Types Packs/Day Years [...] Name Priority Date/Time Associated Diagnosis Comme nts PAP SMEAR - [facility] Routine 10/28/2015 Results for this PATIENT REPORTED procedure a re in the results section . documented in this encounter Results PAP Smear - [facility] Patient Reported (10/28/2015) [facility] gist Method Time Signature PAP Smear - See Scanned [facility] Patient Report [facility] Comment: NIL Specimen (Source) Anatomical Location Collection Method / Collectio n Time Received Time / Laterality Volume 10/28/2015 Narrative Ruma Ervin - 10/28/2015 [facility] Provider LAB[facility]ATORY Performing Organization Address City/State/ZIP Code Phon e Number [facility] [address] [address] documented in this encounter Visit Diagnoses Not on filedocumented in this encounter Additional Health Concerns Assessment Noted Time PHQ-9 Depression Total Score: 19 09/04/2015 7:20 AM CD T documented as of this encounter Care Teams Medicaid Eligibility Specialist Relationship Specialty Start Date End Date No Ref-Primary, Physician PCP - General 07/27/15 04/14/20 Holland Thomas MD PCP - General body shop manager 04/15/[address] [address] documented as of this encounter
--- OUTSIDE RECORDS SUMMARY | 2022-08-31 22:27 | XMS_ITS | Encounter Summary ---
:1990 Author Organization [place] Address [address] [place] [address] Care Team Providers Name Role Phone Primary Dr, Unknown Primary Care Provider Unavailable Reason for Visit Reason Comments Hip Pain bilat hip pain. low abd and back pain. pain with urination. 17 wks preg. Encounter Details Date Type Department Care Team Description 05/02/2012 Emergency [facility] Quintin Benitez cy related condition in second trimester; [place] [facility] DO Jefe Myofascial muscle pain- pelvic ligaments [address] [facility] [address] [place] [address] [place] [address] [phone] (Wo rk) Social History Tobacco Use Types Packs/Day Years Used Date Smoking Tobacco: Every Day Cigarettes 0.1 Comments: smoking 10cig/day- down to 1-2 with Alcohol Use Standard Drinks/Week Comments Yes 0 (1 standard drink = 0.6 oz pure 5-6 dr ma weekly- quit with alcohol) Sex Assigned at Date Recorded Not on file documented as of this encounter Last Filed Vital Signs Vital Sign Reading Time Taken Comments Blood Pressure 115/83 05/02/2012 4:55 PM CDT Pulse - - Temperature 36.6 ??C (97.8 ??F) 05/02/2012 4:55 PM CDT Respiratory Rate 14 05/02/2012 7:23 PM CDT Oxygen Saturation 98% 05/02/2012 7:23 PM CDT Inhaled Oxygen Concentration - - Weight - - Height - - Body Mass Index - - documented in this encounter Discharge Instructions Discharge InstructionsQuintin Benitez DO - 05/02/2012 6:54 PM CDT Tylenol Work restrictions documented in this encounter Medications at Time of Discharge Medication Sig Dispensed Refills Start Date End Date acetaminophen (TYLENOL) Take 1-2 tablets by 0 07/27/2015 325 MG tablet mouth every 6 hours as needed. Vit-Fe Sulfate-FA Take 1 tablet by 0 07/27/2015 ( VITAMIN OR) mouth daily. documented as of this encounter ED Notes Quintin Benitez DO - 05/02/2012 6:06 PM CDT History Chief Complaint Patient presents with ??? Hip Pain bilat hip pain. low abd and back pain. pain with urination. 17 wks preg. HPI Keyla Porter is a 21 year old female who presents with hip pain. The patient is currently 17 weeks . She claims that over the last 3 days she has been experiencing bilateral outer hip painand lower back pain. Yesterday when the patient was at work she was having shooting pain bilaterallyin her outer hips that radiated into her back and shoulders, that seemed like it was brought on by increased periods of standing at work. During these long periods of standing and shooting pain, she says that her legs felt like they were going to give out from under her. The patient says she took Tylenol for this pain last night and found relief. Today the pain is back and she says that her pain isin her bilateral outer hips and lower back. The patient states that her pain is making it difficult for her to urinate and notes it as a stop and go sensation. She denies a burning sensation while urinating or blood in her urine. The patient states she has gained 6 pounds since her and states she has not had any previous back problems. Patient Active Problem List Diagnoses ??? ADJUSTMENT DISORDER WITH DEPRESSED MOOD ??? ASCUS on PAP Smear ??? Other Specified Aftercare Following Surgery ??? CARDIOVASCULAR SCREENING; LDL GOAL LESS THAN 160 ??? Supervision of normal first Past Surgical History Procedure Date ??? C oral surgery procedure ??? Dilation and curettage suction, treat incomplete 2008 ??? Laparotomy exploratory 03/2010 ??? Colonoscopy Social History: Employed Student Allergies: Allergies Allergen Reactions ??? [place] I have reviewed the Medications, Allergies, Past Medical and Surgical History, and [facility]. Review of Systems Genitourinary: Positive for difficulty urinating (stop and go sensation secondary to hip pain). Negative for hematuria. Negative for burning sensation while urinating. Musculoskeletal: Positive for back pain (lower). Positive for bilateral outer hip pain. Pertinent positives and negatives listed in ROS section above. All other systems reviewed and are negative. Physical Exam BP: 115/83 mmHg Heart Rate: 69 Temp: 97.8 ??F (36.6 ??C) SpO2: 100 % Physical Exam Constitutional: She is oriented to person, place, and time. She appears well- developed and well-nourished. No distress. Baby heart rate is 156 HENT: Head: Normocephalic and atraumatic. Eyes: Conjunctivae and EOM are normal. Neck: Normal range of motion. Cardiovascular: Normal rate, regular rhythm, normal heart sounds and intact distal pulses. Pulmonary/Chest: Effort normal and breath sounds normal. No respiratory distress. She has no wheezes. She has no rales. She exhibits no tenderness. Abdominal: Soft. Bowel sounds are normal. Genitourinary: Uterus normal. Musculoskeletal: Normal range of motion. Tenderness to palpation bilaterally at the suspensory round ligaments. No tenderness to palpation at the iliiac crest. Neurological: She is alert and oriented to person, place, and time. Skin: Skin is warm and dry. She is not diaphoretic. Psychiatric: She has a normal mood and affect. ED Course Procedures Critical Care time: none [facility] Diagnoses: None 6:06 PM Patient evaluated. Course of care discussed. 6:55 PM The patient agrees with the care plan and will be discharged home. Assessments & Plan (with Medical Decision Making) Patient given work restrictions refer to letter Tylenol for mild fascial pain Do some stretching of pelvic ligaments and musculature I have reviewed the nursing notes. I have reviewed the findings, diagnosis, plan and need for follow up with the patient. New Prescriptions No medications on file Final diagnoses: related condition in second trimester Myofascial muscle pain- pelvic ligaments This document serves as a record of service personally performed by, Dr. Benitez. It was created on his behalf by, Paulette Garrett, a trained internist medical doctor md. The creation of this record is based on the scribe's personal observations and the provider's statements to them. This document has been checked and approved by the attending provider. Quintin Benitez DO 05/02/12 190 Jimi Bobby RN - 05/02/2012 6:02 PM CDT Patient stated woke up 3 days ago with hip pain that now has progressed into her pelvis bilateral painful to walk. Patient denies injury to area prior to the onset documented in this encounter Plan of Treatment Not on filedocumented as of this encounter Procedures Procedure Name Priority Date/Time Associated Comments Diagnosis HCG QUALITATIVE URINE Routine 05/02/2012 6:06 PM Results for this CDT procedure are i n the results section. URINE MACROSCOPIC Routine 05/02/2012 6:06 PM Resu lts for this WITH REFLEX TO MICRO CDT procedu re are in the results section. documented in this encounter Results (ABNORMAL) HCG qualitative urine (05/02/2012 6:06 PM CDT) [facility] flaveit Method Time Signature HCG Qual Urine Positive (A) NEG [facility] Specimen Anatomical Collection Method Collection Time Receive d Time (Source) Location / / Volume Laterality Urine specimen URINE SPECIMEN 05/02/2012 6:06 PM 05/02 6:16 (specimen) OBTAINED BY CLEAN CDT PM CDT CATCH PROCEDURE / Unknown Quintin Benitez DO LAB - URINE ORDERABLES Performing Organization Address City/State/ZIP Code Phon e Number [facility] [address] [place], [place] [address] [facility] (ABNORMAL) Urine macroscopic with reflex to micro (05/02/2012 6:06 PM CDT) [facility] flaveit Method Time Signature Color Urine Yellow [facility] Appearance Urine Slightly [place] Cloudy [facility] Glucose Urine Negative NEG mg/dL [facility] Bilirubin Urine Negative NEG [facility] Ketones Urine Negative NEG mg/dL [facility] Specific [place] 1.016 1.003 - [place] Urine [address] [facility] Blood Urine Negative NEG [facility] pH Urine 7.5 (H) 5.0 - 7.[address] [place] [address] [facility] Protein Albumin Negative NEG mg/dL [facility] Urobilinogen Normal 0.0 - 2.0 [place] mg/dL mg/dL [facility] Nitrite Urine Negative NEG [facility] Leukocyte Negative NEG [place] Esterase Urine [facility] Source Midstream [facility] RBC Urine 2 0 - 2 [place] /HPF [facility] WBC Urine 1 0 - 2 [place] /[facility] Squamous 1 0 - 1 [place] Epithelial /HPF /HPF [facility] Mucous Urine Present (A) NEG /LPF [facility] Amorphous Many (A) NEG /HPF [place] Crystals [facility] Specimen Anatomical Collection Method Collection Time Receive d Time (Source) Location / / Volume Laterality Urine specimen URINE SPECIMEN 05/02/2012 6:06 PM 05/02 6:16 (specimen) OBTAINED BY CLEAN CDT PM CDT CATCH PROCEDURE / Unknown Quintin Benitez DO LAB - URINE ORDERABLES Performing Organization Address City/State/ZIP Code Phon e Number [facility] [address] [place], [place] [address] [facility] documented in this encounter Visit Diagnoses Diagnosis related condition in second tr imester Unspecified complication of , a ntepartum Myofascial muscle pain- pelvic ligaments Mylagia and myositis, unspecified documented in this encounter Care Teams Retail Event Assistant Relationship Specialty Start Date End Date Primary Barbi Matamoros MD PCP - General 02/16/1207/26 documented as of this encounter
--- OUTSIDE RECORDS SUMMARY | 2022-08-31 22:27 | XMS_ITS | Encounter Summary ---
:1990 Author Organization [place] Address [address] [facility] [place] [address] Care Team Providers Name Role Phone Primary Barbi Matamoros MD Primary Care Provider Unavailable Reason for Visit Reason Comments Care OB Intake/Carolynn Arceo Encounter Details Date Type Department Care Team Description 05/02/2012 Office [facility] Kaushal Christopher ervision of Visit [facility] MD Jesus normal first [place] [address] [address] (Primary [address] [place] [phone] Social History Tobacco Use Types Packs/Day Years Used Date Smoking Tobacco: Every Day Cigarettes 0.1 Comments: smoking 10cig/day- down to 1-2 with Alcohol Use Standard Drinks/Week Comments Yes 0 (1 standard drink = 0.6 oz pure 5-6 dr francesca weekly- quit with alcohol) Sex Assigned at Date Recorded Not on file documented as of this encounter Progress Notes Carolynn Arceo - 05/02/2012 3:57 PM CDT Lifestyle and nutrition teaching completed Carolynn Arceo OB Intake Nurse documented in this encounter Plan of Treatment Not on filedocumented as of this encounter Visit Diagnoses Diagnosis Supervision of normal first - Primary documented in this encounter Care Teams Draftsperson Relationship Specialty Start Date End Date Primary Barbi Matamoros MD PCP - General 02/16/1207/26 documented as of this encounter
--- OUTSIDE RECORDS SUMMARY | 2022-08-31 22:27 | XMS_ITS | Encounter Summary ---
:1990 Author Organization [place] Address [address] [place] [address] Care Team Providers Name Role Phone Primary Dr, Unknown MD Primary Care Provider Unavailable Reason for Visit Reason Comments Abdominal Pain Encounter Details Date Type Department Care Team Description 03/24/2015 [facility] Magdaleno mas MD Pelvic pain [facility] Emergency [address] [facility] [place] [address] [place] [address] [place] [address] [phone] Social History Tobacco Use Types Packs/Day Years [...] documented as of this encounter ED Notes Magdaleno Gavin - 03/24/2015 12:24 PM CDT ED CONSULTATION I, Magdaleno Gavin MD, have reviewed the notes, assessments, and/or procedures performed by Sergio Zhanna, CN-P. I have taken a history, review of systems, physical exam, and I concur with his documentation of Keyla Porter. HPI: Keyla Porter is a 24 y.o. female with a known history of endometriosis who presents to theED for evaluation of abdominal pain. 3 weeks ago the patient began experiencing intermittent episodes of lower abdominal pain. The episodes of pain last a few hours before subsiding. She also reports vaginal bleeding with vaginal discharge. She reports intermittent general weakness and fatigue. She has had intermittent nausea with vomiting. She reports theses symptoms have been worse over the past three days. She has never experienced similar symptoms in the past. Currently in the ED, the patient describes her lower abdominal pain as mild, sharp. The pain has significantly improved since arrival in the ED. The patient denies any palliating or provoking factors. The patient denies fever, chills, urinary symptoms, or any other associated injury or complaint. Of note, the patient reports she has an IUD in place. The patient reports she is in the process of establishing contact with a new AUTOMOTIVE BRAKE TECHNICIAN. The patient reports she underwent pelvic laparoscopy in 2009 for endometriosis. This document serves as a record of services performed by Magdaleno Gavin MD. It was created on his behalf by Giorgi Lawrence, trained coroner/medical examiner. The creation of this record is based on the scribe???s personal observations and the provider???s statements to him. BHARAT: A ten-point ROS was performed. All pertinent positives and negatives noted in the HPI. Physical Exam: Constitutional: Awake. NAD. Respiratory: Normal breath sounds, No respiratory distress, No wheezing, No chest tenderness. Cardiovascular: Normal heart rate, Normal rhythm, No murmurs, No rubs, No gallops. GI: No reproducible abdominal pain to palpation. Bowel sounds normal, Soft. No masses, No flank tenderness. Integument: Warm, Dry, No erythema, No rash. MDM: No clear etiology for patient's symptoms was identified. Probable flare of patient's endometriosis. Testing in the emergency department was negative. I did not feel that additional testing was indicated at this time given the patient's symptoms were improving and the negative workup. She'll be discharged home with a short course of pain medications and instructions to contact her bar turner for follow-up tomorrow. I, Magdaleno Gavin MD, personally performed the services described in this documentation, as scribed by Giorgi Lawrence in my presence, and it is both accurate and complete. Magdaleno Gavin MD 03/25/15 6181 Quintin Chao P - 03/24/2015 10:35 AM CDT eMERGENCY dEPARTMENT eNCOUnter CHIEF COMPLAINT Chief Complaint Patient presents with ??? Abdominal Pain HPI Kelya Porter is a 24 y.o. female who presents for evaluation of lower abdominal pain. History of endometriosis. She is noted fairly constant pain in the lower abdomen for the past 3 weeks. Recently associated with some spotting and at times heavier vaginal bleeding. Pain does not radiate. Denies any relief with Tylenol. She has noted some whitish discharge. Unsure if she may be . She does currently have an IUD. She is in a monogamous relationship and she does not use any other forms of control. She is concerned that she may be or there may be trouble with the IUD. She has not had any previous evaluation of past 3 weeks for this issue. She denies any associated fever, urinary symptoms, or change in bowel habits. She has noted some nausea and has had 1 or 2 episodes of emesis. No additional complaints Review of Systems Constitutional: Negative for fever. Night sweats in the past few weeks Gastrointestinal: Positive for nausea and vomiting. Negative for diarrhea and constipation. Genitourinary: Positive for vaginal bleeding, vaginal discharge and pelvic pain. Negative for dysuria, frequency, hematuria and flank pain. Musculoskeletal: Negative for back pain. Neurological: Positive for light-headedness. Negative for syncope. Hematological: Does not bruise/bleed easily. All other systems reviewed and are negative. PAST MEDICAL HISTORY Past Medical History Diagnosis Date ??? Endometriosis SURGICAL HISTORY History reviewed. No pertinent past surgical history. CURRENT MEDICATIONS Current Outpatient Rx Name Route Sig Dispense Refill ??? HYDROcodone-acetaminophen 5-325 mg per tablet 1-2 tablets by mouth every 6 hours as needed for pain 15 tablet 0 ALLERGIES Allergies no known allergies FAMILY HISTORY History reviewed. No pertinent family history. SOCIAL HISTORY History Social History ??? Marital Status: Single Spouse Name: N/A Number of Children: N/A ??? Years of Education: N/A Social History Main Topics ??? Smoking status: Current Every Day Smoker ??? Smokeless tobacco: None ??? Alcohol Use: None ??? Drug Use: None ??? Sexual Activity: Yes Control/ Protection: IUD Other Topics Concern ??? None Social History Narrative ??? None PHYSICAL EXAM VITAL SIGNS: BP 112/61 Pulse 56 Temp(Src) 98 ??F (36.7 ??C) Resp 16 SpO2 97% Constitutional: Well developed, well nourished, no apparent distress Eyes: conjunctiva normal HENT: Atraumatic, oropharynx moist. Respiratory: No respiratory distress, normal breath sounds Cardiovascular: Normal rate, normal rhythm, no murmurs, no gallops, no rubs GI: Mild suprapubic tenderness. No rebound or guarding. Bowel sounds are normal. : Normal external genitalia. No bleeding is noted. There is physiologic discharge. There is mild cervical motion tenderness. The IUD strings are not evident on exam. No mass or tenderness in either adnexa. Musculoskeletal: No edema Integument: Well hydrated Neurologic: Alert & oriented x 3 RADIOLOGY/PROCEDURES Please see official radiology report. Us Pelvis With Transvaginal Non Ob 03/24/2015 US PELVIS WITH TRANSVAGINAL NON OB 03/24/2015 11:42 AM INDICATION: Pelvic pain. IUD present for 3 years and TECHNIQUE: Transabdominal scans were performed. Endovaginal ultrasound was performed to better visualize the adnexa. COMPARISON: None. FINDINGS: Normal size uterus measures 8.5 x 5.3 x 3.7 cm. Small nabothian cyst in the cervix. Normal endometrium measures 2 mm. The IUD appears in good position. Both ovaries normal in size. Right ovary measures 3.6 x 1.6 cm. Left measures 3.1 x 2.4 cm and contains a dominant 2 cm follicle. No free pelvic fluid. 03/24/2015 CONCLUSION: 1. Negative ultrasound of the pelvis. No etiology for pain. IUD in good position. ED COURSE & MEDICAL DECISION MAKING Pertinent Labs & Imaging studies reviewed. (See chart for details) Labs Reviewed BASIC METABOLIC PANEL - Abnormal; Notable for the following: Chloride 109 (*) All other components within normal limits Narrative: Fasting Glucose reference range is 70-99 mg/dL per [employer] (ADA) guidelines. WET PREP, VAGINAL - Normal URINALYSIS,MACRO REFLEX MICRO, UC IF INDICATED - Normal Narrative: Microscopic not indicated UC not indicated BETA-HCG, QUALITATIVE, SERUM - Normal HM2(CBC W/O DIFFERENTIAL) - Normal CHLAMYDIA TRACHOMATIS & NEISSERIA GONORRHOEAE, AMPLIFIED DETECTION No obvious cause for the patient's pelvic pain identified - there does not appear to be any malignant etiology. Patient was advised to follow-up with her bar turner. Vicodin for pain control. Advisedto return if symptoms worsen or if new symptoms develop. FINAL IMPRESSION 1. Pelvic pain Medications This Visit Medications ketorolac injection 30 mg (TORADOL) (30 mg Intravenous Given 03/24/15 2659) ondansetron injection 4 mg (ZOFRAN) (4 mg Intravenous Given 03/24/15 1302) Prescriptions Discharge Medication List as of 03/24/2015 12:30 PM START taking these medications Details HYDROcodone-acetaminophen 5-325 mg per tablet 1-2 tablets by mouth every 6 hours as needed for pain,Print Quintin Chao CNP 03/24/15 0394 documented in this encounter Plan of Treatment Not on filedocumented as of this encounter Procedures Procedure Name Priority Date/Time Associated Comments Diagnosis US PELVIC Routine 03/24/2015 11:42 Results for this TRANSABDOMINAL AND AM CDT procedure are in TRANSVAGINAL the results section. documented in this encounter Results US Pelvic Complete with Transvaginal (03/24/2015 11:42 AM CDT) Anatomical Region Laterality Modality Abdomen/Pelvis Other Specimen (Source) Anatomical Location Collection Method / Collectio n Time Received Time / Laterality Volume Impressions 03/24/2015 11:53 AM CDT CONCLUSION: 1. ??Negative ultrasound of the pelvis. No etiology for pain. IUD in good position. Narrative 03/24/2015 11:53 AM CDT US PELVIS WITH TRANSVAGINAL NON OB 03/24/2015 11:42 AM INDICATION: Pelvic pain. IUD present for 3 years and TECHNIQUE: Transabdominal scans were per formed. Endovaginal ultrasound was performed to better visualize the adnexa. COMPARISON: None. FINDINGS: Normal size uterus measures 8.5 x 5.3 x 3.7 cm. Small nabothian cyst in the cervix. Normal endometrium measures 2 mm. The IU D appears in good position. Both ovaries normal in size. Right ovary measures 3.6 x 1.6 cm. Left measures 3.1 x 2.4 cm and contains a dominant 2 cm follicle. No free pelvic fluid. Procedure Note Andrea Rubio MD - 04/25/2021Formatt ing of this note might be different from the original. US PELVIS WITH TRANSVAGINAL NON OB 03/24/2015 11:42 AM INDICATION: Pelvic pain. IUD present for 3 years and TECHNIQUE: Transabdominal scans were per formed. Endovaginal ultrasound was performed to better visualize the adnexa. COMPARISON: None. FINDINGS: Normal size uterus measures 8.5 x 5.3 x 3.7 cm. Small nabothian cyst in the cervix. Normal endometrium measures 2 mm. The IU D appears in good position. Both ovaries normal in size. Right ovary measures 3.6 x 1.6 cm. Left measures 3.1 x 2.4 cm and contains a dominant 2 cm follicle. No free pelvic fluid. IMPRESSION: CONCLUSION: 1. Negative ultrasound of the pelvis. No etiology for pain. IUD in good position. Quintin Chao APRN OIL DERRICK OPERATOR IMG US ORDERABLES documented in this encounter Visit Diagnoses Diagnosis Pelvic pain Unspecified symptom associated with fema le genital organs documented in this encounter Care Teams Payroll Clerk Relationship Specialty Start Date End Date Primary Barbi Matamoros MD PCP - General 02/16/1207/26 documented as of this encounter
--- OUTSIDE RECORDS SUMMARY | 2022-08-31 22:27 | XMS_ITS | Encounter Summary ---
:1990 Author Organization [place] Address [facility] [place] [address] Care Team Providers Name Role Phone No Ref-Primary, Physician Primary Care Provider [phone] Reason for Visit Reason Comments Physical Encounter Details Date Type Department Care Team Description 10/28/2015 Office Visit [facility] Orion Freitas, En counter for gynecological examination without abnormal finding (Primary Dx); AND SURGERY CINDI WAYNE Intrauterine device surveillance DRILLING MACHINE OPERATOR [address] [facility] SYSTEM[facility]ith[facility] [address] [place] [address] [place] [address] Social History Tobacco Use Types [...] Reading Time Taken Comments Blood Pressure 122/74 10/28/2015 3:12 PM MR TEACHER Pulse - - Temperature - - Respiratory Rate - - Oxygen Saturation - - Inhaled Oxygen Concentration - - Weight 64 kg (141 lb) 10/28/2015 3:12 PM MR TEACHER Height 167.6 cm (5' 6) 10/28/2015 3:12 PM MR TEACHER Body Mass Index 22.76 10/28/2015 3:12 PM MR TEACHER documented in this encounter Progress Notes Yakelin Garcia APRN [employer] SPRINKLER INSTALLER - 11/04/2015 3:02 PM MR TEACHER Quick Note: Letter with results sent to patient. TEACHER Orion Freitas MD - 10/28/2015 3:13 PM CST SUBJECTIVE: George is a 25 year old female who presents for annual exam. Menses are NA and NA lasting NA days. Menses flow: na. No LMP recorded. Patient is not currently having periods (Reason: IUD).. Using IUD for contraception. She is currently considering . She has a history of endometriosis, which was treated in 2010 at an outside clinic. In 2011 she gavebirth to her daughter and since then has had an IUD in place. She has not been able to feel the strings of her IUD for 1.5years, but was told this is normal. She is considering removing the IUD. Today she presents with increasing dyspareunia and intermittent pelvic pain. She is now avoiding intercourse due to the pain. She also complains of right breast tenderness x2 months. Her last annual exam/pap was in 2011. She has a history of abnormal pap smears (LSIL in 2012), is HPV positive, and had colposcopy in 2012 which showed no abnormalities. Her main complaint today is pelvic pain, dyspareunia, and possible recurrence of endometriosis. GYNECOLOGIC HISTORY: George is sexually active with 1 male partner(s) and is currently in a monogamous relationship. History sexually transmitted infections:No STD history STI testing offered? Declined History of abnormal Pap smear: YES - updated in Problem List and Health Maintenance accordingly Family history of breast CA: No Family history of uterine/ovarian CA: No Family history of colon CA: No HEALTH MAINTENANCE: Cholesterol: ( CHOLESTEROL Date Value Ref Range Status 07/28/2015 112 <200 mg/dL Final Comment: LDL Cholesterol is the primary guide to therapy. The NCEP recommends further evaluation of: patients with cholesterol greater than 200 mg/dL if additional risk factors are present, cholesterol greater than 240 mg/dL, triglycerides greater than 150 mg/dL, or HDL less than 40 mg/dL. History of abnormal lipids: No History of abnormal Mammo: Not applicable. Performs regular Self Breast Exams: Yes Calcium/Vitamin D intake: source: dairy TSH: ( TSH Date Value Ref Range Status 07/28/2015 1.88 0.40 - 4.00 mU/L Final ) Pap; (PAP LSIL 05/03/2012 PAP ASC-US 03/03/2009 PAP NIL 05/28/2005 ) HISTORY: Obstetric History T0 TAB0 SAB1 E0 M0 L0 # Outcome Date GA Lbr Rob/2nd Weight Sex Delivery Anes PTL Lv 2 2008 16w0d AB, COMPLETE 1 Past Medical History Diagnosis Date ??? Adjustment disorder with depressed mood ??? Depression ??? Anxiety ??? Heart murmur ??? Chickenpox x2 ??? Papanicolaou smear of cervix with low grade squamous intraepithelial lesion (LGSIL) 05/03/12 Past Surgical History Procedure Laterality Date ??? C oral surgery procedure ??? Dilation and curettage suction, treat incomplete 2008 ??? Laparotomy exploratory 03/2010 ??? Colonoscopy Family History Problem Relation Age of Onset ??? Blood Disease Paternal Grandfather anemia ??? Cancer Paternal Grandfather lung and skin ??? Diabetes Paternal Grandmother ??? Cerebrovascular Accident Father also brain aneurysm ??? Cerebrovascular Accident Paternal Grandfather also SD ??? Depression Mother ??? Alcohol/Drug Mother meth ??? Alcohol/Drug Father drugs History Social History ??? Marital Status: Single Spouse Name: N/A Number of Children: N/A ??? Years of Education: N/A Social History Main Topics ??? Smoking status: Current Every Day Smoker -- 0.10 packs/day Types: Cigarettes ??? Smokeless tobacco: Never Used Comment: smoking 10cig/day- down to 1-2 with ??? Alcohol Use: No ??? Drug Use: No ??? Sexual Activity: Partners: Male Other Topics Concern ??? Parent/Sibling W/ Cabg, Mi Or Angioplasty Before 65f 55m? No Social History Narrative Current outpatient prescriptions: levonorgestrel (MIRENA) 20 MCG/24HR IUD, 1 each by Intrauterine route, Disp: , Rfl: ; IBUPROFEN PO, Take 400 mg by mouth as needed for moderate pain, Disp: , Rfl: ; busPIRone (BUSPAR) 15 MG tablet, Take 1 tablet (15 mg) by mouth 2 times daily, Disp: 180 tablet, Rfl: 3; traZODone (DESYREL) 100 MG tablet, Take 1.5 tablets (150 mg) by mouth At Bedtime, Disp: 30 tablet, Rfl: 0 Allergies Allergen Reactions ??? Morphine Unknown ??? [place] Past medical, surgical, social and family history were reviewed and updated in [facility]. ROS: C: NEGATIVE for fever, chills, change in weight I: NEGATIVE for worrisome rashes, moles or lesions E: NEGATIVE for vision changes or irritation E/M: NEGATIVE for ear, mouth and throat problems R: NEGATIVE for significant cough or SOB CV: NEGATIVE for chest pain, palpitations or peripheral edema GI: NEGATIVE for nausea, abdominal pain, heartburn, or change in bowel habits : NEGATIVE for frequency, dysuria, hematuria, vaginal discharge, or irregular bleeding M: NEGATIVE for significant arthralgias or myalgia N: NEGATIVE for weakness, dizziness or paresthesias E: NEGATIVE for temperature intolerance, skin/hair changes P: NEGATIVE for changes in mood or affect. OBJECTIVE: EXAM: BP 122/74 mmHg Ht 5' 6 (1.676 m) Wt 141 lb (63.957 kg) BMI 22.77 kg/m2 BMI: Body mass index is 22.77 kg/(m^2). Constitutional: healthy, alert and no distress Head: Normocephalic. No masses, lesions, tenderness or abnormalities Neck: Neck supple. Trachea midline. No adenopathy. Thyroid symmetric, normal size. Cardiovascular: RRR, without clicks or murmurs Respiratory: Negative. Breast: No nodularity, asymmetry or nipple discharge bilaterally. Right breast tender to palpation above nipple, but no abnormalities palpated Gastrointestinal: Abdomen soft, non-tender, non-distended. No masses, organomegaly. Vulva: No external lesions, normal female hair distribution, no inguinal adenopathy. Urethra: Midline, non-tender, well supported, no discharge Vagina: Moist, pink, no abnormal discharge, no lesions Cervix: no lesions, no discharge. IUD strings not visualized Uterus: anteverted, smooth contour, without enlargement, mobile. CMT present. Ovaries: No masses appreciated, Adnexa tender to palpation, no masses felt. Mobile Rectal Exam: deferred Musculoskeletal: extremities normal Skin: no suspicious lesions or rashes Psychiatric: Affect appropriate, cooperative,mentation appears normal. COUNSELING: Yearly exams regular exercise healthy diet/nutrition reports that she has been smoking Cigarettes. She has been smoking about 0.10 packs per day. She has never used smokeless tobacco. Body mass index is 22.77 kg/(m^2). FRAX Risk Assessment ASSESSMENT/PLAN: 25 year old female with satisfactory annual exam (Z01.419) Encounter for gynecological examination without abnormal finding (primary encounter diagnosis) Comment: Patient with multiple issues.-Abnormal Pap smear in the past with repeat today, lost IUD strings, recurrence of debilitation from endometriosis with avoidance dyspareunia. Plan: PAP imaged thin layer screen Ultrasound for lost IUD check and assessment of endometriosis in the pelvis. Dr. Orion Freitas TEACHER documented in this encounter Nursing Notes Pamela Arceo - 10/28/2015 3:13 PM CST Chief Complaint Patient presents with ??? Physical Initial BP 122/74 mmHg Ht 5' 6 (1.676 m) Wt 141 lb (63.957 kg) BMI 22.77 kg/m2 Estimated bodymass index is 22.77 kg/(m^2) as calculated from the following: Height as of this encounter: 5' 6 (1.676 m). Weight as of this encounter: 141 lb (63.957 kg). BP completed using cuff size: regular Pamela Arceo MA TEACHER documented in this encounter Plan of Treatment Pending Results Name Type Priority Associated Diagnoses Date/Ti me PAP imaged thin layer Lab Routine Encounter for gynec ological 10/28/2015 3:22 PM MR TEACHER screen examination without abnormal finding documented as of this encounter Procedures Procedure Name Priority Date/Time Associated Diagnosis Comme nts PAP IMAGED THIN Routine 10/28/2015 3:22 PM Encounter for LAYER SCREEN MR TEACHER gynecological examination without abnormal finding A PAP THIN LAYER Routine 10/28/2015 3:22 PM Resul ts for this SCREEN MR TEACHER procedure are i n the results section. documented in this encounter Results US Transvaginal Non OB (10/31/2015 2:50 PM MR TEACHER) Anatomical Region Laterality Modality Abdomen/Pelvis Computed Radiography Specimen (Source) Anatomical Location Collection Method / Collectio n Time Received Time / Laterality Volume Narrative 10/31/2015 3:12 PM MR TEACHER US Transvaginal Non OB Order #: [id number] Study Notes ? Alvin Leal on 10/31/2015 2:55 P M ULTRASOUND - PELVIC FURNITURE ARRANGER Referring MD: DR FREITAS Primary Clinic: [facility] FURNITURE ARRANGER [place] TOOLING SUPERVISOR NARRATIVE: Uterus appears normal in size and [...] Ut: 5.1x5.1x3.4cm (46cm3). End Lininmm. Lt. Ov: [id number]. Rt. Ov : [id number]. Type of ultrasound: TRANSVAGINAL NON OB Orion Freitas MD IMG US ORDERABLES A pap thin layer screen (10/28/2015 3:22 PM MR TEACHER) Component Value Ref Test Analysis Performed At [facility] Range Method Time Signature PAP NIL COPATH Copath Report COPATH Patient Name: GEORGE DAVILA MR#: [id number] Specimen #: [id number] Collected: 10/28/2015 Received: 10/30/2015 Reported: 11/04/2015 11:40 Ordering Phy(s): ORION FREITAS SPECIMEN/STAIN PROCESS: Pap thin layer prep screening (Surepath) ? Pap-Cyto x 1, Reflex HPV if ASCUS/LSIL x 1 SOURCE: Cervical, endocervical ---- Pap thin layer prep screening (Surepath) SPECIMEN ADEQUACY: Satisfactory for evaluation. CYTOLOGIC INTERPRETATION: Negative for Intraepithelial Lesion or Malignancy Electronically signed out by: Quintin Chan M.D. Processed and screened at [facility] CLINICAL HISTORY: LMP: cidentally Intra-Uterine Device, Previous abnormal pap: LSIL Date of Last Pap: 05/03/2012, Papanicolaou Test Limitations: ??Cervical cytology is a scre ening test with limited sensitivity; regular screening is critical for cancer prevention; Pap tests are primarily effective for the diagnosis/prevention of squamous cell carcinoma, not adenoca rcinomas or other cancers. TESTING LAB LOCATION: [address] ??[address] COLLECTION SITE: Client: ??[facility] Location: MSGYN (S) Specimen Anatomical Collection Method Collection Time Receive d Time (Source) Location / / Volume Laterality 10/28/2015 3:22 PM 9:59 MR TEACHER AM MR TEACHER Orion Freitas MD LAB - [facility] CLINICAL SPECIM EN Performing Organization Address City/State/ZIP Code Phon e Number COPATH documented in this encounter Visit Diagnoses Diagnosis Encounter for gynecological examination without abnormal finding - Primary Routine gynecological examination Intrauterine device surveillance Surveillance of previously prescribed in trauterine contraceptive device Intrauterine device surveillance Surveillance of previously prescribed in trauterine contraceptive device documented in this encounter Additional Health Concerns Assessment Noted Time PHQ-9 Depression Total Score: 19 09/04/2015 7:20 AM CD T documented as of this encounter Care Teams Staff Writer Relationship Specialty Start Date End Date No Ref-Primary, Physician PCP - General 07/27/15 04/14/20 documented as of this encounter
--- OUTSIDE RECORDS SUMMARY | 2022-08-31 22:27 | XMS_ITS | Encounter Summary ---
:1990 Author Organization [place] Address [address] [place] [address] Care Team Providers Name Role Phone Primary Dr, Unknown MD Primary Care Provider Unavailable Reason for Visit Reason Comments Vaginal Bleeding <12 wks per pt, unk EDC Abdominal Cramping Encounter Details Date Type Department Care Team Description 02/16/2012 Emergency [facility] Quintin Benitez cy related condition in first trimester; [place] [facility] DO Jefe Bicornate uterus [address] [facility] [address] [place] [address] [place] [address] [phone] (Wo rk) Social History Tobacco Use Types [...] Sign Reading Time Taken Comments Blood Pressure 122/70 02/16/2012 8:49 PM CDT Pulse 88 02/16/2012 5:26 PM CDT Temperature 37.2 ??C (99 ??F) 02/16/2012 5:26 PM CDT Respiratory Rate 20 02/16/2012 8:49 PM CDT Oxygen Saturation 97% 02/16/2012 8:49 PM CDT Inhaled Oxygen Concentration - - Weight - - Height - - Body Mass Index - - documented in this encounter Discharge Instructions Discharge InstructionsQuintin Benitez DO - 02/16/2012 7:53 PM CDT Call to schedule OB visit Avoid intercourse. Return for heavy bleeding documented in this encounter Medications at Time of Discharge Medication Sig Dispensed Refills Start Date End Date Vit-Fe Take 1 tablet by 0 02/08/201204/2015 Sulfate-FA ( mouth daily. VITAMIN OR) documented as of this encounter ED Notes Quintin Benitez DO - 02/16/2012 6:09 PM CDT History Chief Complaint Patient presents with ??? Vaginal Bleeding <12 wks per pt, unk EDC ??? Abdominal Cramping HPI 21-year-old female 2 para 0010 Presents having missed her menstrual cycle in January Last cycle January 03-onset Presents with vaginal spotting bleeding and cramping No fever or dysuria Occasional intermittent sharp stabbing lower abdominal pain right side Previous -spontaneous miscarriage first trimester. I have reviewed the Medications, Allergies, Past Medical and Surgical History, and Social History inthe [facility] system. Allergies to strawberries Medications none Past medical and surgical history negative Review of Systems ROS: 10 point ROS neg other than the symptoms noted above in the HPI. Physical Exam BP: 137/75 mmHg Pulse: 88 Temp: 99 ??F (37.2 ??C) Resp: 16 SpO2: 99 % Physical Exam Abdomen is nondistended with no focal pain and active bowels Light vaginal spotting noted but no heavy bleeding No CVA tenderness None attempt heart tones at 6 weeks gestation ED Course Procedures Labs Ordered and Resulted from Time of ED Arrival Up to the Time of Departure from the ED URINE MACROSCOPIC WITH REFLEX TO MICRO - Abnormal; Notable for the following: ??? Ketones Urine 10 (*) ??? Leukocyte Esterase Urine Trace (*) ??? Bacteria Urine Few (*) ??? Squamous Epithelial /HPF Urine 3 (*) ??? Mucous Urine Present (*) ??? Amorphous Crystals Few (*) All other components within normal limits HCG QUALITATIVE URINE - Abnormal; Notable for the following: ??? HCG Qual Urine Positive (*) All other components within normal limits Assessments & Plan (with Medical Decision Making) 6:11 PM Urine test positive At 6 weeks zero days gestation per LMP-ultrasound and if necessary a limited hCG serial. Discussed bicornate uterus with patient Referral to OB clinic.Cyrus WAYNE I have reviewed the nursing notes. I have reviewed the findings, diagnosis, plan and need for follow up with the patient. New Prescriptions No medications on file Final diagnoses: related condition in first trimester Bicornate uterus Quintin Benitez DO 02/16/122041 documented in this encounter Plan of Treatment Not on filedocumented as of this encounter Procedures Procedure Name Priority Date/Time Associated Comments Diagnosis US OB <14 WEEKS WITH Routine 02/16/2012 7:02 PM R esults for this TRANSVAGINAL SINGLE CDT procedur e are in the results section. HCG QUALITATIVE URINE STAT 02/16/2012 5:35 PM Results for this CDT procedure are i n the results section. URINE MACROSCOPIC STAT 02/16/2012 5:35 PM Resu lts for this WITH REFLEX TO MICRO CDT procedu re are in the results section. documented in this encounter Results US OB 1st trimester w transvag (02/16/2012 7:02 PM CDT) Anatomical Region Laterality Modality Abdomen/Pelvis Other Specimen (Source) Anatomical Collection Method Collection Time Re ceived Time Location / / Volume Laterality 02/16/2012 7:02 PM CDT Impressions 02/16/2012 7:14 PM CDT ULTRASOUND OBSTETRIC FIRST TRIMESTER WIT H TRANSVAGINAL ?? Feb 16, 2012 7:02:00 PM HISTORY: ?? First trimester with bleedin g 6 weeks 0 days. COMPARISON: None. TECHNIQUE: Transabdominal and transvagin al imaging was performed. Transvaginal exam performed to better ev aluate gestational sac and pole. FINDINGS: There appears to be a bicornua te uterus. A gestational sac is seen within the left horn. A po le is identified. Heart rate is 104 beats per minute. [place]-rump danie th measures 4.1 mm. This corresponds to a gestational age of 6 we eks 1 day. Estimated date of delivery by crown-rump length is 012. No hemorrhage is identified. There is a complex cyst in t he right ovary measuring 1.7 x 1.2 x 1.8 cm in size. A small amount of free fluid is seen. IMPRESSION: 1. Bicornuate or septated uterus. 2. Viable intrauterine gestation. The ge stational sac is seen within the left uterine horn. Gestational age i s approximately 6 weeks 1 day. Quintin Bneitez DO IMG US ORDERABLES (ABNORMAL) HCG qualitative urine (02/16/2012 5:35 PM CDT) [facility] Method Time Signature HCG Qual Urine Positive (A) NEG [facility] Specimen Anatomical Collection Method Collection Time Receive d Time (Source) Location / / Volume Laterality Urine specimen URINE SPECIMEN 02/16/2012 5:35 PM 02/15 5:45 (specimen) OBTAINED BY CLEAN CDT PM CDT CATCH PROCEDURE / Unknown Lluvia Franks PA-C LAB - URINE ORDERABLES Performing Organization Address City/State/ZIP Code Phon e Number [facility] [address] [place], [place] [address] [facility] (ABNORMAL) Urine macroscopic with reflex to micro (02/16/2012 5:35 PM CDT) [facility] Method Time Signature Color Urine Yellow [facility] Appearance Urine Slightly [facility] Cloudy [facility] Glucose Urine Negative NEG mg/dL [facility] Bilirubin Urine Negative NEG [facility] Ketones Urine 10 (A) NEG mg/dL [facility] Specific [place] 1.021 1.003 - [facility] Urine 1.035 [facility] Blood Urine Negative NEG [facility] pH Urine 6.5 5.0 - 7.0 [facility] pH [facility] Protein Albumin Negative NEG mg/dL [facility] Urobilinogen Normal 0.0 - 2.0 [facility] mg/dL mg/dL [facility] Nitrite Urine Negative NEG [facility] Leukocyte Trace (A) NEG [facility] Esterase Urine [facility] Source Midstream [facility] RBC Urine 0 0 - 2 [facility] /HPF [facility] WBC Urine <1 0 - 2 [facility] /[facility] Bacteria Urine Few (A) NEG /HPF [facility] Squamous 3 (H) 0 - 1 [facility] Epithelial /HPF /HPF [facility] Mucous Urine Present (A) NEG /LPF [facility] Amorphous Few (A) NEG /HPF [facility] Specimen Anatomical Collection Method Collection Time Receive d Time (Source) Location / / Volume Laterality Urine specimen URINE SPECIMEN 02/16/2012 5:35 PM 02/15 5:45 (specimen) OBTAINED BY CLEAN CDT PM CDT CATCH PROCEDURE / Unknown Lluvia Franks PA-C LAB - URINE ORDERABLES Performing Organization Address City/State/[facility] Code Phon e Number [facility] [address] [place], [place] [address] [facility] documented in this encounter Visit Diagnoses Diagnosis related condition in first tri mester Unspecified complication of , a ntepartum Bicornate uterus Bicornuate uterus documented in this encounter Care Teams Biofuels Manager Relationship Specialty Start Date End Date Primary Barbi Matamoros MD PCP - General 02/16/1207/26 documented as of this encounter
--- OUTSIDE RECORDS SUMMARY | 2022-08-31 22:28 | XMS_ITS | Encounter Summary ---
:1990 Author Organization [place] Address [facility] [place] [address] Care Team Providers Name Role Phone Dayna Kirby MD Primary Care Provider [phone] Encounter Details Date Type Department Care Team Description 02/20/2009 Clinic Report Dayna Kirby MD (Barmaid) [address] [place] [address] (Wo rk) Social History Tobacco Use Types Packs/Day Years Used Date Smoking Tobacco: Never Cigarettes Comments: tried it only Alcohol Use Standard Drinks/Week Comments No 0 (1 standard drink = 0.6 oz pure alcoho l) Sex Assigned at Date Recorded Not on file documented as of this encounter Progress Notes Dayna Kirby - 02/26/2009 1:22 PM CDT FINAL SUBJECTIVE: Here with amenorrhea. HISTORY OF PRESENT ILLNESS: George Davila is a 18-year-old with amenorrhea, unknown LMP and was seen more recently for nausea. She was given Zofran and that has been somewhat helpful. Her abdominal pain is improving. She has had minimal cramping. No urine symptoms, does have ongoing nausea. No spotting. PAST MEDICAL HISTORY: Significant for adjustment disorder, depressed mood. She was admitted in 2004. Denies ongoing symptoms but I did not pursue a significant anxiety symptoms as she had a few friends with her today. Denies any ongoing drug use at all. PHYSICAL EXAMINATION: GENERAL: Pleasant 18-year-old, no acute distress. ABDOMEN: Soft, nontender, no heart tones documented. UA unremarkable. LABORATORY: Urine hCG positive. ASSESSMENT: Early . Get a serum quant, pending that scheduled for ultrasound for early dating. Plan: Drug screen in the future. Followup with Carolynn Arceo will be arranged and she will schedule for first OB in the near future pending that. She should be on folic acid every day. She had trouble with Zofran so she has metoclopramide had to use. She had that prior to this visit. Electronically signed on 02/26/2009 13:22 by DAYNA KIRBY MD MT: [id number] Name: GEORGE DAVILA MRN: [id number] Account: [id number] : 1990 Visit Date: 02/20/2009 Document: [id number] documented in this encounter Plan of Treatment Not on filedocumented as of this encounter Visit Diagnoses Not on filedocumented in this encounter Care Teams Senior Security Analyst Relationship Specialty Start Date End Date Dayna Kirby MD PCP - General 12/01/05 07/25/10 documented as of this encounter
--- OUTSIDE RECORDS SUMMARY | 2022-08-31 22:28 | XMS_ITS | Encounter Summary ---
:1990 Author Organization [place] Address [address] [place] [address] Care Team Providers Name Role Phone Jazmin Quiros MD Primary Care Provider [phone] Primary Barbi Matamoros MD Primary Care Provider Unavailable No Ref-Primary, Physician Primary Care Provider [phone] Holland Thomas MD Primary Care Provider [phone] Amarilys Friedman HAND FOLDER Unavailable Encounter Details Date Type Department Care Team Description 03/16/2010 Abstract [facility] OSMAR Piper Swanson Social History Tobacco Use Types Packs/Day Years [...] on filedocumented in this encounter Care Teams Mail Distribution Scheme Examiner Relationship Specialty Start Date End Date Jazmin Quiros MD PCP - General 12/01/05 07/25/10 Primary Barbi Matamoros MD PCP - General 02/16/1207/26 No Ref-Primary, Physician PCP - General 07/27/15 04/14/20 Holland Thomas MD PCP - General highway maintenance supervisor 04/15/20 [facility] [address] [address] Amarilys Friedman NP Assigned PCP 06/05/21 [address] [place] [address] documented as of this encounter
--- OUTSIDE RECORDS SUMMARY | 2022-08-31 22:28 | XMS_ITS | Encounter Summary ---
:1990 Author Organization [address] [address] Care Team Providers Name Role Phone Jazmin Quiros MD Primary Care Provider Encounter Details Date Type Department Care Team Description 04/15/2010 Abstract [facility] Jaycee Wesley Social History Tobacco Use Types Packs/Day Years [...] on filedocumented in this encounter Care Teams Automotive Parts Advisor Relationship Specialty Start Date End Date Jazmin Quiros MD PCP - General 12/01/05 07/25/10 documented as of this encounter
--- OUTSIDE RECORDS SUMMARY | 2022-08-31 22:28 | XMS_ITS | Encounter Summary ---
:1990 Author Organization [place] Address [address] [place] [address] Care Team Providers Name Role Phone Jazmin Quiros MD Primary Care Provider [phone] Encounter Details Date Type Department Care Team Description 11/03/2007 Emergency room [facility] Emergency Dilshad Toscano MD Department [address] [place], [place] [address] (Wo rk) Social History Tobacco Use Types Packs/Day Years Used Date Smoking Tobacco: Never Cigarettes Comments: tried it only Alcohol Use Standard Drinks/Week Comments No 0 (1 standard drink = 0.6 oz pure alcoho l) Sex Assigned at Date Recorded Not on file documented as of this encounter Progress Notes Dilshad Toscano - 11/07/2007 3:30 PM POWERHOUSE MECHANIC SUPERVISOR FINAL CHIEF COMPLAINT: Multiple complaints. HISTORY OF PRESENT ILLNESS: George Davila is 17-year-old female who comes in complaining of feeling dizzy. She blacked out 3 times, once while looking in the mirror in the bathroom. She describes a cough, congestion and low-grade fever a couple of days ago, none currently. She complains of some upper respiratory symptoms, some dyspnea with exertion, some chest tightness, nausea, vomiting 1-4 times per day, no hematemesis, no coffee-ground emesis. She denies alcohol or drug use. She smokes one-quarter pack of cigarettes per day. Her father in early September, and she has been having a very hard time with that loss. She does have a history of anxiety and what sounds like dysthymia. PAST MEDICAL HISTORY: Otherwise as above. MEDICATIONS: None. ALLERGIES: None. SOCIAL HISTORY: As above. FAMILY HISTORY: Diabetes, otherwise unremarkable. REVIEW OF SYSTEMS: As above. PHYSICAL EXAMINATION: VITAL SIGNS: Normal. GENERAL: Nontoxic-appearing, in no respiratory distress. PSYCHIATRIC: Her affect is slightly flat. Her mood is depressed. SKIN: Warm and dry. HEENT: Unremarkable. LUNGS: Clear. HEART: Regular, no murmur, S3 or rub. ABDOMEN: Soft, nontender, bowel sounds positive, no mass or organomegaly. NEUROVASCULAR: Exam intact grossly. LABORATORY AND DIAGNOSTIC STUDIES: CBC, chemistries, urinalysis, urine test are unremarkable. Chest x-ray is normal. IMPRESSION: 1. Upper respiratory infection. 2. Question generalized anxiety disorder/adjustment disorder. PLAN: I recommend she follow up with her regular doctor regarding possible medication to treat generalized anxiety. We will put her on some Compazine for her nausea. Electronically signed on 11/07/2007 15:29 by DILSHAD TOSCANO MD MT: [facility]AN[facility]#[id number] Name: GEORGE DAVILA MRN: [id number] Account: [id number] : 1990 Visit Date: 11/03/2007 Document: [id number] RHOUSE MECHANIC SUPERVISOR documented in this encounter Plan of Treatment Not on filedocumented as of this encounter Visit Diagnoses Not on filedocumented in this encounter Care Teams Public Health Service Officer Relationship Specialty Start Date End Date Jazmin Quiros MD PCP - General 12/01/05 07/25/10 documented as of this encounter
--- OUTSIDE RECORDS SUMMARY | 2022-08-31 22:28 | XMS_ITS | Encounter Summary ---
:1990 Author Organization [facility] Address [address] [place] [address] Care Team Providers Name Role Phone Jazmin Quiros MD Primary Care Provider [phone] Reason for Visit Reason Comments Pre-Op Exam Scheduled for laparoscopy on 04-13-2010. Encounter Details Date Type Department Care Team Description [facility] BILINGUAL TRAINER Clinic MD Paramjit Exam (Primary Dx) [facility] [address] [place] [address] Social History Tobacco Use Types Packs/Day Years Used Date Smoking Tobacco: Every Day Cigarettes 0.1 Comments: 2-3 a day, cutting down 04-27-09 Alcohol Use Standard Drinks/Week Comments No 0 (1 standard drink = 0.6 oz pure alcoho l) Sex Assigned at Date Recorded Not on file documented as of this encounter Last Filed Vital Signs Vital Sign Reading Time Taken Comments Blood Pressure 102/70 04/08/2010 4:29 PM CDT Pulse - - Temperature - - Respiratory Rate - - Oxygen Saturation - - Inhaled Oxygen Concentration - - Weight 62.1 kg (137 lb) 04/08/2010 4:29 PM CDT Height 168.9 cm (5' 6.5) 04/08/2010 4:29 PM CDT Body Mass Index 21.78 04/08/2010 4:29 PM CDT documented in this encounter Progress Notes Lex Alexis - 04/13/2010 12:38 PM CDT Lex Alexis W - 04/13/2010 8:04 AM CDT Patient is a 19-year-old induced AB one (D&E procedure) who presents today for preop exam.She presented for evaluation of treatment of pelvic pain. She stated she had a kidney infection in the past and developed pelvic pain. The pain was gradually increasing and doubled her over silk much so that she could not move. She also experienced massive bleeding at that time. Her last Depo- Provera injection was 07/30. She was seen in the emergency room and suggested that she may have endometriosis.Ultrasound showed fluid in the uterus. Her pain is now on and off. She has had no fever and has had no intercourse for more than a year. PAST MEDICAL HISTORY: She denies medical problems including hypertension, diabetes, heart disease, kidney disease, lung disease or seizures. She was given Provera 10 mg daily in the emergency room and has just finished. Her bleeding has now resolved. She was given a prescription for OxyContin 15 mg every 12 hours and it helps the pain. She had a colonoscopy 11/28 for rectal bleeding but otherwise has had no surgeries. PERSONAL, FAMILY AND SOCIAL HISTORY: She is single and smokes about one pack of cigarettes weekly. She drinks about 6 drinks a week. Her mother is in good health and her father is . She has onesister who is in good health. REVIEW OF SYSTEMS: 10 point review of systems is negative. Physical Exam: Vital signs: Bp: 102/70 R: Data Unavailable P: Data Unavailable T: Data Unavailable Ht: 5' 6.5 Wt: 137 lbs 0 oz General Appearance: Well developed, well nourished white female who is oriented x 3 with a normal gait and is no acute distress. Neck: Supple with no cervical or supraclavicular adenopathy.. Thyroid: Normal. Lungs: Clear. Heart: Normal sinus rhythm without significant murmurs. Breasts: Not examined. Abdomen: Soft. No masses, organomegaly, tenderness, hernias or inguinal adenopathy noted. Extremities: No cyanosis or edema. Skin: Clear. Pelvic Deferred. ASSESSMENT: 1. Increasingly severe midline lower abdominal pain of undetermined etiology. 2. Abnormal uterine bleeding coming off Depo-Provera 3. Smoker PLAN: I encouraged her to quit smoking. I discussed the abnormal bleeding and explained it would likely straighten out on its own given time as it is probably due to the Depo-Provera shot she last received. I discussed the pelvic pain and possible causes. It is unlikely to be pelvic inflammatory disease since she has been abstinent for more than a year. I discussed other causes of pain including adhesions, endometriosis, cysts or tumors or pain from other structures in the area. I discussed laparoscopy with possible laparotomy and the risks of infection, bleeding, anesthesia and injury to other organs and the small chance of a bigger surgery if needed or in emergency. She stated she definitely wanted to go ahead with the laparoscopy,voiced understanding and signed a consent form. Tray Alexis MD At least 30 minutes was spent with the patient, more than half spent discussing her problems. documented in this encounter Nursing Notes 04/08/2010 3:45 PM CDT >> JON ALLAN Wed April 08, 2010 4:37 PM Initial BP 102/70 Ht 5' 6.5 (1.689 m) Wt 137 lb (62.143 kg) Estimated Body mass index is 21.78 kg/(m^2) as calculated from the following: Height as of this encounter: 5' 6.5(1.689 m). Weight as of this encounter: 137 lb(62.143 kg). . Date of Surgery/ Procedure: 04-13-2010 Time of Surgery/ Procedure: 8:10 Hospital/Surgical Facility: [facility] Primary Physician: none Type of Anesthesia Anticipated: General History of anesthesia complications: NONE History of abnormal bleeding: NONE History of blood transfusions: NO Patient has a Health Care Directive or Living Will: NO PREOP QUESTIONNAIRE 1- NO - Do you ever have any pain or discomfort in your chest? 2- NO - Have you ever had a severe pain across the front of your chest lasting for half an hour or more? 3- YES - Do you have swelling in your feet or ankles at times? Happens occasionally. 4- NO - Are you troubled by shortness of breath when: walking on the level/ up a slight hill/ at night? 5- NO - Does your chest ever sound wheezy or whistling? 6- NO - Do you currently have a cold, bronchitis or other respiratory infection? 7- NO - Have you had a cold, bronchitis or other respiratory infection within the last 2 weeks? 8- NO - Do you usually have a cough? 9- NO - Do you sometimes get pains in the calves of your legs when you walk? 10-YES - Do you or anyone in your family have previous history of blood clots? Father has had multiple aneurysm's. 11-NO - Do you or does anyone in your family have serious bleeding problem such as prolonged bleeding following surgeries or cuts? 12-NO - Have you ever had problems with anemia or been told to take iron pills? 13-YES - Have you had any abnormal blood loss such as black, tarry or bloody stools, or abnormal vaginal bleeding? Vaginal bleeding and bloody stools. 14-NO - Have you or any of your relatives ever had problems with anesthesia? 15-YES - Do you snore or stop breathing at night? Snore. 16-NO - Do you have any prosthetic heart valves or joints? 17-NO - Is there any chance that you may be ? Olga Allan CMA documented in this encounter Plan of Treatment Not on filedocumented as of this encounter Procedures Procedure Name Priority Date/Time Associated Diagnosis Comme nts CL AFF CBC WITH Routine 04/08/2010 5:14 PM Preop General Resul ts for this PLATELETS CDT Physical Exam procedure are in the results section. documented in this encounter Results CBC WITH PLATELETS (04/08/2010 5:14 PM CDT) P athologist Signature WBC 4.2 4.0 - 11.0 [facility] 10e9/L [facility] RBC Count 4.19 3.8 - 5.2 [facility] 10e12/L [facility] Hemoglobin 12.7 11.7 - [facility] 15.7 g/dL [facility] Hematocrit 37.8 35.0 - [facility] 47.0 % [facility] MCV 90 78 - 100 [facility] fl [facility] MCH 30.3 26.5 - [facility] 33.0 pg [facility] MCHC 33.6 31.5 - [facility] 36.5 g/dL [facility] RDW 12.3 10.0 - [facility] 15.0 % [facility] Platelet Count 193 150 - 450 [facility] 10e9/L [facility] Specimen Anatomical Collection Method Collection Time Receive d Time (Source) Location / / Volume Laterality 04/08/2010 5:14 PM 0 5:16 CDT PM CDT Lex Alexis MD LABORATORY Performing Organization Address City/State/[facility] Code Phon e Number [facility] [address] [place], [place] [address] [facility] documented in this encounter Visit Diagnoses Diagnosis Preop general physical exam - Primary Other specified pre-operative examinatio n documented in this encounter Care Teams Employment Office Clerk Relationship Specialty Start Date End Date Jazmin Quiros MD PCP - General 12/01/05 07/25/10 documented as of this encounter
--- OUTSIDE RECORDS SUMMARY | 2022-08-31 22:28 | XMS_ITS | Encounter Summary ---
:1990 Author Organization [facility] Address [facility] [place] [address] Care Team Providers Name Role Phone Jazmin Quiros MD Primary Care Provider [phone] Primary Barbi Matamoros MD Primary Care Provider Unavailable No Ref-Primary, Physician Primary Care Provider [phone] Holland Thomas MD Primary Care Provider Amarilys Friedman DROP WIRE ALINER Unavailable Encounter Details Date Type Department Care Team Description 04/23/2009 [facility] Theodore Rivera MD [address] [address] (Wo rk) Social History Tobacco Use Types [...] on filedocumented in this encounter Care Teams Rotary Rig Engine Operator Relationship Specialty Start Date End Date Jazmin Quiros MD PCP - General 12/01/05 07/25/10 Primary Barbi Matamoros MD PCP - General 3/28/12 9/5 /15 No Ref-Primary, Physician PCP - General 07/27/15 04/14/20 Holland Thomas MD PCP - General cloud subject matter expert 04/15/20 [address] [id number] Amarilys Friedman, DROP WIRE ALINER Assigned PCP 06/05/21 [address] [facility] [place], [place] [id number] documented as of this encounter
--- OUTSIDE RECORDS SUMMARY | 2022-08-31 22:28 | XMS_ITS | Encounter Summary ---
:1990 Author Organization [place] Address [facility] [place] [address] Care Team Providers Name Role Phone Unavailable Primary Care Provider Unavailable Encounter Details Date Type Department Care Team Description 11/29/2005 Telephone [facility] Edy Ladd MD [address] [place], [place] [address] (Wo rk) Social History Tobacco Use Types Packs/Day Years Used Date Smoking Tobacco: Former Cigarettes Comments: tried it only Alcohol Use Standard Drinks/Week Comments No 0 (1 standard drink = 0.6 oz pure alcoho l) Sex Assigned at Date Recorded Not on file documented as of this encounter Miscellaneous Notes Telephone Encounter - July Chau - 11/29/2005 10:16 AM CST Pt was to call in if further problems. Pt. said she still feels uncomfortable. She rates her pain as5 1/2 and after eating it increases. Did not feel she needed to go to this weekend but mother feels it should be looked into further. talked about a US? Tried to call but no answer- left message for patient or mother to call again. Will order abdominal ultrasound to evaluate for gallbladder disease. CAPRICE LADD MD ER SPORTS MANAGER documented in this encounter Plan of Treatment Not on filedocumented as of this encounter Visit Diagnoses Not on filedocumented in this encounter
--- OUTSIDE RECORDS SUMMARY | 2022-08-31 22:28 | XMS_ITS | Encounter Summary ---
:1990 Author Organization [facility] Address [address] [place] [address] Care Team Providers Name Role Phone Jazmin Quiros MD Primary Care Provider [phone] Reason for Visit Reason Comments Surgical Followup Lap with fulguration of endo metriosis Encounter Details Date Type Department Care Team Description 05/07/2010 [facility] TECHNOLOG[facility] MD Paramjit Aftercare Following [facility] (Primar y Dx) CLINIC [address] [place] [address] Social History Tobacco Use Types Packs/Day Years Used Date Smoking Tobacco: Every Day Cigarettes 0.1 Comments: 2-3 a day, cutting down 6-709 Alcohol Use Standard Drinks/Week Comments No 0 (1 standard drink = 0.6 oz pure alcoho l) Sex Assigned at Date Recorded Not on file documented as of this encounter Last Filed Vital Signs Vital Sign Reading Time Taken Comments Blood Pressure 114/62 05/07/2010 3:33 PM CDT Pulse - - Temperature - - Respiratory Rate - - Oxygen Saturation - - Inhaled Oxygen Concentration - - Weight 61 kg (134 lb 6.4 oz) 05/07/2010 3:33 PM CDT Height - - Body Mass Index 21.37 04/08/2010 4:29 PM CDT documented in this encounter Progress Notes Lex Alexis W - 05/07/2010 3:41 PM CDT Patient presents for postoperative visit. 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 She states she feels well and her wounds have healed without difficulty. She states her pelvic pain is less than before. She is experiencing normal bowel and bladder function. OBJECTIVE: Vital signs: Bp: 114/62 R: Data Unavailable P: Data Unavailable T: Data Unavailable Ht: Data Unavailable Wt: 134 lbs 6.4 oz Abdomen: Soft. Healed laparoscopy scars present. No tenderness. ASSESSMENT: 1. Normal postoperative checkup PLAN: Recheck in 4 months to see how she is getting along with the pain and also to perform an annual exam. Resume normal activity. Tray Alexis M.D. documented in this encounter Nursing Notes 05/07/2010 3:30 PM CDT >> SUDHA RAM [facility] May 07, 2010 3:34 PM Initial BP 114/62 Wt 134 lb 6.4 oz (60.963 kg) Estimated Body mass index is 21.37 kg/(m^2) as calculated from the following: Height as of 04/08/10: 5' 6.5(1.689 m). Weight as of this encounter: 134 lb 6.4 oz(60.963 kg). . documented in this encounter Plan of Treatment Not on filedocumented as of this encounter Visit Diagnoses Diagnosis Other specified aftercare following surg bandar - Primary documented in this encounter Care Teams School Coordinator Relationship Specialty Start Date End Date Jazmin Quiros MD PCP - General 12/01/05 07/25/10 documented as of this encounter
--- OUTSIDE RECORDS SUMMARY | 2022-08-31 22:28 | XMS_ITS | Encounter Summary ---
:1990 Author Organization [place] Address [address] [place] [address] Care Team Providers Name Role Phone Jazimn Quiros MD Primary Care Provider [phone] Reason for Visit Reason Comments Care Abdominal Pain Encounter Details Date Type Department Care Team Description 03/24/2009 Office [facility] Jazmin Quiros Sup ervision of Visit CLINIC MD Janessa Normal First [address] (Primary [place] Dx) [place] [address] Social History Tobacco Use Types Packs/Day Years Used Date Smoking Tobacco: Every Day Cigarettes 0.1 Alcohol Use Standard Drinks/Week Comments No 0 (1 standard drink = 0.6 oz pure alcoho l) Sex Assigned at Date Recorded Not on file documented as of this encounter Last Filed Vital Signs Vital Sign Reading Time Taken Comments Blood Pressure 118/62 03/24/2009 1:20 PM CDT Pulse - - Temperature - - Respiratory Rate - - Oxygen Saturation - - Inhaled Oxygen Concentration - - Weight 69.8 kg (153 lb 12.8 oz) 03/24/2009 1:20 PM CDT Height - - Body Mass Index 24.27 02/17/2009 4:17 PM CDT documented in this encounter Progress Notes Jazmin Quiros - 07/30/2010 9:53 PM CDT Keyla Porter is a 18 year old female With Patient presents with: Care Abdominal Pain; epigastic. , just after food. ; today ; sharp, pain ; cereal , water, ; was midepigastric. Reminded her of post colonoscopy pain she had in epigastric area H.o fainting episode. , has occurred one time, near cyncope. Gets sweaty, she notes whe she adhikari sbeendehydrated. See vitals Recheck in 4 weeks To read info on quad screen Sonner followup if needed Reglan, 2x /day ; occ not at all Constipation no documented in this encounter Plan of Treatment Not on filedocumented as of this encounter Visit Diagnoses Diagnosis Supervision of normal first - Primary documented in this encounter Care Teams Trolley Collector Relationship Specialty Start Date End Date Jazmin Quiros MD PCP - General 12/01/05 07/25/10 documented as of this encounter
--- OUTSIDE RECORDS SUMMARY | 2022-08-31 22:28 | XMS_ITS | Encounter Summary ---
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 Started on legs and moved to my belly. Encounter Details Date Type Department Care Team Description 04/28/2009 Office [facility] Jazmin Quiros ervision of Normal First (Primary Dx); Visit CLINIC MD Janessa [address] [address] Social History Tobacco Use Types Packs/Day Years Used Date Smoking Tobacco: Every Day Cigarettes 0.1 Comments: 2-3 a day, cutting down 04-27-09 Alcohol Use Standard Drinks/Week Comments No 0 (1 standard drink = 0.6 oz pure alcoho l) Sex Assigned at Date Recorded Not on file documented as of this encounter Last Filed Vital Signs Vital Sign Reading Time Taken Comments Blood Pressure 110/68 04/28/2009 1:34 PM CDT Pulse 72 04/28/2009 1:34 PM CDT Temperature 36.7 ??C (98 ??F) 04/28/2009 1:34 PM CDT Respiratory Rate 20 04/28/2009 1:34 PM CDT Oxygen Saturation - - Inhaled Oxygen Concentration - - Weight 69.4 kg (153 lb) 04/28/2009 1:34 PM CDT Height - - Body Mass Index 24.14 02/17/2009 4:17 PM CDT documented in this encounter Progress Notes [place], Jazmin - 04/28/2009 2:36 PM CDT Chief Complaint Patient presents with ??? 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 Derm Problem Have many spots on my body that started 04-24-09 on my legs and are now all over, they itch and sometimes are painful. Started on legs and moved to my belly. on and off bleeding since last visit; to er in [place] No ultrasound Had 'hormone levels checked' . Told they were low Also spots on body . Not clearly pustular, more raised papules, variable Pruritic She declined quad screen today. - may complete next week After extended discussion . Pt having significant reservations about ; is seeking group home counselor on this Fob. Just heard about it. ; pt has spoken to family . BP 110/68 Pulse 72 Temp (Src) 98 ??F (36.7 ??C) (Tympanic) Resp 20 Wt 153 lb (69.4 kg) LMPOB (10/15/09) The neck is supple and free of adenopathy or masses, the thyroid is normal without enlargement or nodules. Affect reserved. Fhts 140 Fh, appropriate Results for orders placed on 04/28/2009 CBC WITH PLATELETS, DIFF Component Value Range ??? WBC 9.4 4.0-11.0 (10e9/L) ??? RBC 4.05 3.8-5.2 (10e12/L) ??? HGB 12.6 11.7-15.7 (g/dL) ??? Hct 36.8 35.0-47.0 (%) ??? MCV 91 78-100 (fl) ??? MCH 31.1 26.5-33.0 (pg) ??? MCHC 34.2 31.5-36.5 (g/dL) ??? RDW 12.8 10.0-15.0 (%) ??? PLT 220 150-450 (10e9/L) ??? Diff Method Automated Method - ??? Neutrophil % 73 40-75 (%) ??? Lymphocyte % 19 (*) 20-48 (%) ??? Monocytes % 7 0-12 (%) ??? Eosinophils % 1 0-6 (%) ??? Basophils % 0 0-2 (%) ??? abs Neutrophils, absolute 6.9 1.6-8.3 (10e9/L) ??? Lymphocytes, absolute 1.7 0.8-5.3 (10e9/L) ??? Monocytes, absolute 0.7 0.0-1.3 (10e9/L) ??? Eosinophils, absolute 0.1 0.0-0.7 (10e9/L) ??? Basophios, absolute 0.0 0.0-0.2 (10e9/L) MONO HETEROPHILE Component Value Range ??? MONO TEST Positive (*) NEG- ASSESSMENT / PLAN: V22.0 Supervision of Normal First (primary encounter diagnosis) Comment: Plan: US, UTERUS,LIMITED, 1/> FETUSES, ; offered repeat ultrasound for subchorionic hemorrhage Pt undecided about continuing Options given for adoption 782.1R Rash Comment:? Folliculitis vs mono In fact mono positive. Hold cephalexin Plan: CBC WITH PLATELETS, DIFF, MONO HETEROPHILE, May use claritin Hold cephalexin Recheck prn At least 15 minutes spent, with > 50% counseling, education, coordination of care documented in this encounter Nursing Notes 04/28/2009 1:45 PM CDT >> HEATHER MUNIZ TueApr 28, 2009 3:02 PM Patient informed by cell phone, has mono, rash is mon related. Viral illness transfer through the saliva. Will run its course, drink plenty fluids and rest. Call if further questions >> IVAN SAVAGE TueApr 28, 2009 1:38 PM Initial BP 110/68 Pulse 72 Temp (Src) 98 ??F (36.7 ??C) (Tympanic) Resp 20 Wt 153 lb (69.4 kg) LMP OB (10/15/09) Estimated Body mass index is 24.14 kg/(m^2) as calculated from: Height of 5' 6.75 (1.695 m) as of 02/17/09 Weight of 153 lb (69.4 kg) as of this encounter . 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 Started on legs and moved to my belly. FHT- about 155 when we were at [facility] ([place]04-24-09) documented in this encounter Plan of Treatment Not on filedocumented as of this encounter Procedures Procedure Name Priority Date/Time Associated Diagnosis Comme nts CL AFF CBC WITH Routine 04/28/2009 2:45 PM Rash Result s for this PLATELETS, DIFF CDT procedure ar e in the results section. HCL MONO TEST Routine 04/28/2009 2:45 PM Rash Results for this CDT procedure are i n the results section. documented in this encounter Results (ABNORMAL) MONO HETEROPHILE (04/28/2009 2:45 PM CDT) [facility] Method Time Signature Mononucleosis Positive (A) NEG [facility] LAB Specimen Anatomical Collection Method Collection Time Receive d Time (Source) Location / / Volume Laterality 04/28/2009 2:45 PM 9 2:47 CDT PM CDT Jazmin Quiros MD LABORATORY Performing Organization Address City/State/ZIP Code Phon e Number [place] [id number] [place], [place] [address] [facility] (ABNORMAL) CBC WITH PLATELETS, DIFF (04/28/2009 2:45 PM CDT) [facility] Method Time Signature WBC 9.4 4.0 - [place] 11.0 [facility] 10e9/L [facility] RBC Count 4.05 3.8 - 5.2 [place] 10e12/L [facility] Hemoglobin 12.6 11.7 - [place] 15.7 g/dL [facility] Hematocrit 36.8 35.0 - [facility] 47.0 % [facility] MCV 91 78 - 100 [place] fl [facility] MCH 31.1 26.5 - [facility] 33.0 pg [facility] MCHC 34.2 31.5 - [facility] 36.5 g/dL [facility] RDW 12.8 10.0 - [facility] 15.0 % [facility] Platelet Count 220 150 - 450 [place] 10e9/L [facility] Diff Method Automated [place] Method [facility] % Neutrophils 73 40 - 75 % [facility] % Lymphocytes 19 (L) 20 - 48 % [facility] % Monocytes 7 0 - 12 % [facility] % Eosinophils 1 0 - 6 % [facility] % Basophils 0 0 - 2 % [facility] Absolute 6.9 1.6 - 8.3 [place] Neutrophil 10e9/L [facility] Absolute 1.7 0.8 - 5.3 [place] Lymphocytes 10e9/L [facility] Absolute 0.7 0.0 - 1.3 [place] Monocytes 10e9/L [facility] Absolute 0.1 0.0 - 0.7 [place] Eosinophils 10e9/L [facility] Absolute 0.0 0.0 - 0.2 [place] Basophils 10e9/L [facility] Specimen Anatomical Collection Method Collection Time Receive d Time (Source) Location / / Volume Laterality 04/28/2009 2:45 PM 9 2:47 CDT PM CDT Jazmin Quiros MD LABORATORY Performing Organization Address City/State/ZIP Code Phon e Number [place] [phone] [facility] documented in this encounter Visit Diagnoses Diagnosis Supervision of normal first - Primary Rash Rash and other nonspecific skin eruption documented in this encounter Care Teams Dairy Specialist Relationship Specialty Start Date End Date Jazmin Quiros MD PCP - General 12/01/05 07/25/10 documented as of this encounter
--- OUTSIDE RECORDS SUMMARY | 2022-08-31 22:28 | XMS_ITS | Encounter Summary ---
:1990 Author Organization [place] Address [address] [place] [address] Care Team Providers Name Role Phone Jazmin Quiros MD Primary Care Provider [phone] Reason for Visit Reason Onset Date Comments Care 02/28/2009 2nd pregnanc y Encounter Details Date Type Department Care Team Description 02/28/2009 Telephone [facility] Jazmin Quiros [facility] al Care (2nd CLINIC MD Janessa pregnanc y) [address] [place] [address] (Wo rk) Social History Tobacco Use Types Packs/Day Years Used Date Smoking Tobacco: Every Day Cigarettes Comments: 12-15day- quit with preg Alcohol Use Standard Drinks/Week Comments Yes 0 (1 standard drink = 0.6 oz pure alcoho l) occas /quit with preg Sex Assigned at Date Recorded Not on file documented as of this encounter Miscellaneous Notes Telephone Encounter - Carolynn Arceo - 02/28/2009 8:42 PM CDT Lifestyle and nutrition teaching completed Carolynn Arceo OB Intake Nurse documented in this encounter Plan of Treatment Not on filedocumented as of this encounter Visit Diagnoses Not on filedocumented in this encounter Care Teams Laboratory Scientist Relationship Specialty Start Date End Date Jazmin Quiros MD PCP - General 12/01/05 07/25/10 documented as of this encounter
--- OUTSIDE RECORDS SUMMARY | 2022-08-31 22:28 | XMS_ITS | Encounter Summary ---
:1990 Author Organization [place] Address [facility] [place] [address] Care Team Providers Name Role Phone Jazmin Quiros MD Primary Care Provider [phone] Primary Barbi Matamoros MD Primary Care Provider Unavailable No Ref-Primary, Physician Primary Care Provider [phone] Holland Thomas MD Primary Care Provider [phone] Amarilys Friedman WOOLEN TESTER Unavailable Encounter Details Date Type Department Care Team Description 04/14/2009 [facility] Abstract, Provider [facility] Social History Tobacco Use Types Packs/Day Years [...] on filedocumented in this encounter Care Teams Supervisor [place] Relationship Specialty Start Date End Date Jazmin Quiros MD PCP - General 12/01/05 07/25/10 Primary Barbi Matamoros MD PCP - General 02/16/1207/26 No Ref-Primary, Physician PCP - General 07/27/15 04/14/20 Holland Thomas MD PCP - General watch guard gate 04/15/20 [address] [place] [address] Amarilys Friedman WOOLEN TESTER Assigned PCP 06/05/21 [address] [place] [address] documented as of this encounter
--- OUTSIDE RECORDS SUMMARY | 2022-08-31 22:28 | XMS_ITS | Encounter Summary ---
:1990 Author Organization [place] Address [facility] [place] [address] Care Team Providers Name Role Phone Jazmin Quiros MD Primary Care Provider [phone] Encounter Details Date Type Department Care Team Description 02/20/2009 Medical Correspondence [facility] Jazmin Quiros IN HEALTH CARE HIMBrennan Riddle MD PROGRAM - PROOF OF [address] [place] [address] Social History Tobacco Use Types Packs/Day Years [...] on filedocumented in this encounter Care Teams Draw Operator Relationship Specialty Start Date End Date Jazmin Quiros MD PCP - General 12/01/05 07/25/10 documented as of this encounter
--- OUTSIDE RECORDS SUMMARY | 2022-08-31 22:28 | XMS_ITS | Encounter Summary ---
:1990 Author Organization [place] Address [address] [place] [address] Care Team Providers Name Role Phone Jazmin Quiros MD Primary Care Provider [phone] Encounter Details Date Type Department Care Team Description 03/16/2010 Emergency room [facility] Social History Tobacco Use Types Packs/Day Years Used Date Smoking Tobacco: Every Day Cigarettes 0.1 Comments: 2-3 a day, cutting down 6-7-09 Alcohol Use Standard Drinks/Week Comments No 0 (1 standard drink = 0.6 oz pure alcoho l) Sex Assigned at Date Recorded Not on file documented as of this encounter ED Notes Abstract, Provider - 03/17/2010 9:37 AM CDT documented in this encounter Plan of Treatment Not on filedocumented as of this encounter Procedures Procedure Name Priority Date/Time Associated Comments Diagnosis CL AFF N.GONORRHOEAE, Routine 03/16/2010 1:13 PM Results for this DNA AMP PROBE CDT procedure are in the results section. CL AFF CHLMYD TRACH, Routine 03/16/2010 1:13 PM R esults for this DNA, AMP PROBE CDT procedure are in the results section. HCL WET PREP STAT 03/16/2010 1:11 PM Results f or this CDT procedure are i n the results section. HCL URINE MACROSCOPIC STAT 03/16/2010 12:57 Re sults for this REFLEX PM CDT procedure are i n the results section. HCL HCG URINE QUAL STAT 03/16/2010 12:57 Resul ts for this PM CDT procedure are i n the results section. CL AFF CBC WITH STAT 03/16/2010 12:50 Results for this PLATELETS, DIFF PM CDT procedure ar e in the results section. documented in this encounter Results N.GONORRHOEAE, DNA, (GC) (03/16/2010 1:13 PM CDT) Component Value Ref Test Analysis Performed At [facility] Method Time Signature Specimen Cervix [facility] LAB N Gonorrhea Negative for N. gonorrhoeae rRNA by knapsack sprayer mediated amplification. [facility] PCR A negative result by transc ription mediated amplification does not preclude the [place] presence of N. gonorrhoeae infection because re sults are dependent on proper CAMPUS LABS and adequate collection, absence of inhibitors, and suffici ent rRNA to be detected. Specimen Anatomical Collection Method Collection Time Receive d Time (Source) Location / / Volume Laterality 03/16/2010 1:13 PM 0 1:23 CDT PM CDT Holland Paredes MD LABORATORY Performing Organization Address City/[facility]/ZIP Code Phon e Number [facility] [address] LAB [facility] CHLMYD TRACH, DNA, AMP PROBE (03/16/2010 1:13 PM CDT) Component Value Ref Test Analysis Performed At [facility] Specimen Cervix [facility] Chlamydia Negative for C. trachomatis rRNA by knapsack sprayer mediated amplification. [facility] Trachomatis A negative result by transc ription mediated amplification does not preclude the [place] PCR presence of C. trachomatis infection because results are dependent on proper CAMPUS LABS and adequate collection, absence of inhibitors, and suffici ent rRNA to be detected. Specimen Anatomical Collection Method Collection Time Receive d Time (Source) Location / / Volume Laterality 03/16/2010 1:13 PM 0 1:23 CDT PM CDT Holland Paredes MD LABORATORY Performing Organization Address City/[facility] Code Phon e Number [facility] [address] LAB [facility] A WET PREP (03/16/2010 1:11 PM CDT) [facility] Time Signature Specimen Vagina [facility] LAB Wet Prep No Trichomonas seen [place] No clue cells seen [place] No yeast seen [facility] Micro Report FINAL [place] Status 03/16/2010 [facility] Specimen Anatomical Collection Method Collection Time Receive d Time (Source) Location / / Volume Laterality 03/16/2010 1:11 PM 0 1:21 CDT PM CDT Holland Paredes MD LABORATORY Performing Organization Address City/[facility]/ZIP Code Phon e Number [facility] [address] [place], [place] [address] [facility] URINE MACROSCOPIC REFLEX (03/16/2010 12:57 PM CDT) Component Value Ref Test Analysis Performed At [facility] gist Range Method Time Signature Color Urine Light Yellow [facility] Appearance Urine Clear [facility] Glucose Urine Negative NEG [place] mg/dL [facility] Bilirubin Urine Negative NEG [facility] Ketones Urine Negative NEG [place] mg/dL [facility] Specific Crary 1.009 1.003 - [place] Urine 1.035 [facility] Blood Urine Negative NEG [facility] pH Urine 7.0 5.0 - [place] 7.0 pH [facility] Protein Albumin Negative NEG [place] Urine mg/dL [facility] Urobilinogen Normal 0.0 - [place] mg/dL 2.0 [facility] mg/[facility] LAB Nitrite Urine Negative NEG [facility] Leukocyte Negative NEG [place] Esterase Urine [facility] Source Unspecified [facility] Specimen Anatomical Collection Method Collection Time Receive d Time (Source) Location / / Volume Laterality 03/16/2010 12:57 03/16/2010 1:07 PM CDT PM CDT Holland Paredes MD LABORATORY Performing Organization Address City/[facility]/ZIP Code Phon e Number [facility] [address] [place], [place] [address] [facility] HCG QUAL URINE (03/16/2010 12:57 PM CDT) [facility] gist Method Time Signature HCG Qual Negative NEG [place] Urine This test provides a presum ptive diagnosis of or non-. A [place] confirmed diagnosis should only be made by a ph ysician after all REGIONAL clinical and laboratory findings have been evaluated. HOSPITAL LAB Specimen Anatomical Collection Method Collection Time Receive d Time (Source) Location / / Volume Laterality 03/16/2010 12:57 03/16/2010 1:07 PM CDT PM CDT Holland Paredes MD LABORATORY Performing Organization Address City/[facility]/ZIP Code Phon e Number [facility] [address] [place], [place] [address] [facility] CBC WITH PLATELETS, DIFF (03/16/2010 12:50 PM CDT) [facility] Method Time Signature WBC 5.6 4.0 - [place] 11.0 [facility] 10e9[facility] RBC Count 4.36 3.8 - 5.2 [place] 10e12/L [facility] Hemoglobin 13.3 11.7 - [facility] 15.7 g/dL [facility] Hematocrit 39.4 35.0 - [place] 47.0 % [facility] MCV 90 78 - 100 [place] fl [facility] MCH 30.5 26.5 - [place] 33.0 pg [facility] MCHC 33.8 31.5 - [place] 36.5 g/dL [facility] RDW 12.7 10.0 - [place] 15.0 % [facility] Platelet Count 203 150 - 450 [place] 10e9/L [facility] Diff Method Automated [facility] LAB % Neutrophils 59 40 - 75 % [facility] % Lymphocytes 32 20 - 48 % [facility] % Monocytes 8 0 - 12 % [facility] % Eosinophils 1 0 - 6 % [facility] % Basophils 0 0 - 2 % [facility] Absolute 3.3 1.6 - 8.3 [place] Neutrophil 10e9/L [facility] Absolute 1.8 0.8 - 5.3 [place] Lymphocytes 10e9/L [facility] Absolute 0.5 0.0 - 1.3 [place] Monocytes 10e9/L [facility] Absolute 0.1 0.0 - 0.7 [place] Eosinophils 10e9/L [facility] Absolute 0.0 0.0 - 0.2 [place] Basophils 10e9/L [facility] Specimen Anatomical Collection Method Collection Time Receive d Time (Source) Location / / Volume Laterality 03/16/2010 12:50 03/16/2010 1:10 PM CDT PM CDT Holland Paredes MD LABORATORY Performing Organization Address City/[facility]/ZIP Code Phon e Number [facility] [address] [facility] [place], [place] [address] [facility] documented in this encounter Visit Diagnoses Not on filedocumented in this encounter Care Teams Etymology Teacher Relationship Specialty Start Date End Date Jazmin Quiros MD PCP - General 12/01/05 07/25/10 documented as of this encounter
--- OUTSIDE RECORDS SUMMARY | 2022-08-31 22:28 | XMS_ITS | Encounter Summary ---
:1990 Author Organization [place] Address [address] [place] [address] Care Team Providers Name Role Phone Jazmin Quiros MD Primary Care Provider [phone] Reason for Visit Reason Comments Confirmation Of seen in [place] on 02/09/2009, n ot taking ondan. Abdominal Pain Encounter Details Date Type Department Care Team Description 02/17/2009 Office Visit [facility] Jazmin Quiros Abdomi nal Cramps (Primary Dx); CLINIC MD Janessa Amenorrhea Secondary [address] [place] [address] Social History Tobacco Use Types Packs/Day Years Used Date Smoking Tobacco: Never Cigarettes Comments: tried it only Alcohol Use Standard Drinks/Week Comments No 0 (1 standard drink = 0.6 oz pure alcoho l) Sex Assigned at Date Recorded Not on file documented as of this encounter Last Filed Vital Signs Vital Sign Reading Time Taken Comments Blood Pressure 118/60 02/17/2009 4:17 PM CDT Pulse - - Temperature - - Respiratory Rate - - Oxygen Saturation - - Inhaled Oxygen Concentration - - Weight 67.1 kg (148 lb) 02/17/2009 4:17 PM CDT Height 169.5 cm (5' 6.75) 02/17/2009 4:17 PM CDT Body Mass Index 23.35 02/17/2009 4:17 PM CDT documented in this encounter Progress Notes Jazmin Quiros - 02/24/2009 7:36 PM CDT eKyla Porter is a 18 year old female With Chief Complaint Patient presents with ??? Confirmation Of seen in [place] on 02/09/2009, not taking ondan. ??? Abdominal Pain This office note has been dictated. documented in this encounter Nursing Notes 02/17/2009 4:00 PM CDT >> HEATHER MUNIZ Mon Feb 17, 2009 4:21 PM Initial BP 118/60 Ht 5' 6.75 (1.695 m) Wt 148 lb (67.132 kg) LMP UNKNOWN Body mass index is 23.35 kg/(m^2). . Here with FOB-Sammy,, friend-February documented in this encounter Plan of Treatment Not on filedocumented as of this encounter Procedures Procedure Name Priority Date/Time Associated Diagnosis Comme nts HCL HCG URINE QUAL Routine 02/17/2009 5:43 PM Abdominal Cramps Results for this CDT Amenorrhea Secondary procedu re are in the results section. HCL UA MICRO IF Routine 02/17/2009 5:43 PM Abdominal Supervisor Channel Process mps Results for this POSITIVE CDT Amenorrhea Secondary procedu re are in the results section. CL AFF MICRO Routine 02/17/2009 5:43 PM Amenorrhea Secondary R esults for this EXAM-URINE CDT procedure are i n the results section. ABO/RH TYPE & Routine 02/17/2009 5:00 PM Amenorrhea Secondary Results for this SCREEN CDT procedure are i n the results section. HCL HCG QUANT Routine 02/17/2009 5:00 PM Amenorrhea Secondary Results for this CDT procedure are i n the results section. documented in this encounter Results (ABNORMAL) MICRO EXAM-URINE (02/17/2009 5:43 PM CDT) [facility] Method Time Signature WBC Urine 2-5 (A) 0 - 2 [facility] /HPF [facility] RBC Urine O - 2 0 - 2 [facility] /HPF [facility] Squamous EPI Few FEW /LPF [facility] Bacteria Urine Few (A) NEG /HPF [facility] Mucous Urine Present (A) NEG /LPF [facility] Specimen Anatomical Collection Method Collection Time Receive d Time (Source) Location / / Volume Laterality 02/17/2009 5:43 PM 9 5:45 CDT PM CDT Jazmin Quiros MD LABORATORY Performing Organization Address City/[facility]/ZIP Code Phon e Number [address] [address] [facility] (ABNORMAL) UA MICRO IF POSITIVE (02/17/2009 5:43 PM CDT) [facility] Method Time Signature Color Urine Yellow [facility] Appearance Urine Clear [facility] Glucose Urine Negative NEG mg/dL [facility] Bilirubin Urine Small (A) NEG [facility] Ketones Urine Trace (A) NEG mg/dL [facility] Specific [place] 1.025 1.003 - [place] Urine 1.035 [facility] Blood Urine Negative NEG [facility] pH Urine 6.0 5.0 - 7.0 [place] pH [facility] Protein Albumin Trace (A) NEG mg/dL [place] Urine [facility] Urobilinogen 0.2 0.2 - 1.0 [place] Urine EU/dL [facility] Nitrite Urine Negative NEG [facility] Leukocyte Negative NEG [place] Esterase Urine [facility] Source Midstream [place] Urine [facility] Specimen Anatomical Collection Method Collection Time Receive d Time (Source) Location / / Volume Laterality 02/17/2009 5:43 PM 9 5:45 CDT PM CDT Jazmin Quiros MD LABORATORY Performing Organization Address City/State/ZIP Code Phon e Number [address] [address] [facility] (ABNORMAL) HCG QUAL URINE (02/17/2009 5:43 PM CDT) [facility] Method Time Signature HCG Qual Urine Positive (A) NEG [facility] Specimen Anatomical Collection Method Collection Time Receive d Time (Source) Location / / Volume Laterality 02/17/2009 5:43 PM 9 5:45 CDT PM CDT Jazmin Quiros MD LABORATORY Performing Organization Address City/State/ZIP Code Phon e Number [facility] [address] [place], [place] [address] [facility] HCG, QUANT, SERUM (02/17/2009 5:00 PM CDT) P athologist Signature HCG Quantitative 49415 IU/L [facility] Comment: Non- ?0 - 5 , weeks from LMP: ??1 - 10 weeks ? 64 - 151,000 IU/L 11 - 15 weeks 11,800 - 152,000 IU/L 16 - 22 weeks ??9,380 - 61,400 IU/L 23 - 40 weeks ??1,740 - 98,600 IU/L Specimen Anatomical Collection Method Collection Time Receive d Time (Source) Location / / Volume Laterality 02/17/2009 5:00 PM 9 5:02 CDT PM CDT Jazmin Quiros MD LABORATORY Performing Organization Address City/State/ZIP Code Phon e Number [facility] [address] [place], [place] [address] [facility] ABO/RH TYPE & SCREEN (02/17/2009 5:00 PM CDT) Component Value Ref Test Analysis Performed At Patholo gist Range Method Time Signature ABO A [facility] RH(D) Pos [facility] Antibody Screen Pos [facility] Specimen Expires 02/20/2009 [facility] Blood Bank Sent to [place] Comment Reference Lab [facility] Antibody Unidentified [facility] Identification Antibody [facility] Specimen Anatomical Collection Method Collection Time Receive d Time (Source) Location / / Volume Laterality 02/17/2009 5:00 PM 9 5:02 CDT PM CDT Jazmin Quiros MD LABORATORY Performing Organization Address City/State/ZIP Code Phon e Number [facility] [address] [place] [address] [facility] documented in this encounter Visit Diagnoses Diagnosis Abdominal cramps - Primary Abdominal pain, unspecified site Amenorrhea secondary Absence of menstruation documented in this encounter Care Teams Banquet Set Up Person Relationship Specialty Start Date End Date Jazmin Quiros MD PCP - General 12/01/05 07/25/10 documented as of this encounter
--- OUTSIDE RECORDS SUMMARY | 2022-08-31 22:28 | XMS_ITS | Encounter Summary ---
:1990 Author Organization [place] Address [address] [place] [address] Care Team Providers Name Role Phone Jazmin Quiros MD Primary Care Provider [phone] Reason for Visit Reason Comments Abnormal Uterine Bleeding ER F/U Vera, said bleeding, blood a nd urine normal, US, low lying placenta Encounter Details Date Type Department Care Team Description 04/16/2009 Office [facility] Jazmin Quiros Sup ervision of Visit CLINIC MD Janessa Normal First [address] (Primary [place] Dx) [place] [address] Social History Tobacco Use Types Packs/Day Years Used Date Smoking Tobacco: Every Day Cigarettes 0.1 Alcohol Use Standard Drinks/Week Comments No 0 (1 standard drink = 0.6 oz pure alcoho l) Sex Assigned at Date Recorded Not on file documented as of this encounter Last Filed Vital Signs Vital Sign Reading Time Taken Comments Blood Pressure 112/58 04/16/2009 2:09 PM CDT Pulse - - Temperature - - Respiratory Rate - - Oxygen Saturation - - Inhaled Oxygen Concentration - - Weight 70.9 kg (156 lb 6.4 oz) 04/16/2009 2:09 PM CDT Height - - Body Mass Index 24.68 02/17/2009 4:17 PM CDT documented in this encounter Progress Notes Jazmin Quiros - 04/18/2009 11:06 PM CDT Recent er visit from [place] reviwed, small sub chrionic hemorrhage Final records pending No cramping Min dark spotting Reviewed pelvic rest ASSESSMENT / PLAN: V22.0 Supervision of Normal First (primary encounter diagnosis) Comment: Plan: VITAMIN TABS OR Routinn followup 3 weeks followup for quad screen next visit Stop folic acid documented in this encounter Plan of Treatment Not on filedocumented as of this encounter Visit Diagnoses Diagnosis Supervision of normal first - Primary documented in this encounter Care Teams Culture Media Laboratory Assistant Relationship Specialty Start Date End Date Jazmin Quiros MD PCP - General 12/01/05 07/25/10 documented as of this encounter
--- OUTSIDE RECORDS SUMMARY | 2022-08-31 22:28 | XMS_ITS | Encounter Summary ---
:1990 Author Organization [place] Address [address] [place] [address] Care Team Providers Name Role Phone Jazmin Quiros MD Primary Care Provider [phone] Encounter Details Date Type Department Care Team Description 03/16/2010 Results Only HOSP RESULTS [facility] Quintin Rainey Jefe, [address] [place] [address] [facility] [phone] [place], [place] [address] (Wo rk) Social History Tobacco Use Types [...] Procedure Name Priority Date/Time Associated Diagnosis Comme Merged with [facility] US PELVIC Routine 03/16/2010 2:16 PM Results f or this NON-OB, COMPLETE CDT procedure a re in the results section. documented in this encounter Results SONO PELVIS COMPLETE (03/16/2010 2:16 PM CDT) Anatomical Region Laterality Modality Other Specimen (Source) Anatomical Collection Method Collection Time Re ceived Time Location / / Volume Laterality 03/16/2010 2:16 PM CDT Impressions 03/16/2010 2:29 PM CDT US [id number] Mar 16, 2010 2: 16:00 PM HISTORY: Bleeding. Pain. Question PID. TECHNIQUE: Transabdominal images of the pelvis are supplemented with endovaginal images to better define roosevelt og. COMPARISON: None. FINDINGS: The uterus measures 7.3 x 3.2 x 4.2 cm. No ??fibroids are present. The endometrium is expanded wit h ??complex material that measures 2.5 cm in thickness. This also extends down into the endocervical canal. Doppler shows no blo od flow within this complex material. It is also not hyperemic at it s margin. Within the endometrium up near the cornua a small a mount of complex fluid is seen. There is a collapsing dominant fol licle in the right ovary that measures 1.8 cm. There is a small amount of free pelvic fluid. The left ovary is unremarkable. IMPRESSION: Complex abnormality is prese nt within the endometrium. This is nonspecific. It may represent he matoma. Retained products of conception would be in the differential if the patient was . Endometrial hyperplasia or other abnorma lity is not excluded. Quintin Benitez DO SPECIAL IMAGING STUDIES documented in this encounter Visit Diagnoses Not on filedocumented in this encounter Care Teams Area Counselor Relationship Specialty Start Date End Date Jazmin Quiros MD PCP - General 12/01/05 07/25/10 documented as of this encounter
--- OUTSIDE RECORDS SUMMARY | 2022-08-31 22:28 | XMS_ITS | Encounter Summary ---
:1990 Author Organization [place] Address [address] [place] [address] Care Team Providers Name Role Phone Jazmin Quiros MD Primary Care Provider [phone] Encounter Details Date Type Department Care Team Description 11/03/2007 Emergency room [facility] Social [...] Name Priority Date/Time Associated Diagnosis Comme nts HC CHEST TWO VIEWS, Routine 11/03/2007 5:20 PM Re sults for this FRONT/LAT [employer] procedure are i n the results section. HCL HCG URINE QUAL STAT 11/03/2007 4:53 PM Res ults for this [employer] procedure are i n the results section. DRUGS OF ABUSE, STAT 11/03/2007 4:53 PM Result s for this URINE [employer] procedure are i n the results section. HCL UA MICRO IF STAT 11/03/2007 4:53 PM Result s for this POSITIVE [employer] procedure are i n the results section. CL AFF CBC WITH STAT 11/03/2007 4:53 PM Result s for this PLATELETS, DIFF [employer] procedure ar e in the results section. HCL BASIC METABOLIC STAT 11/03/2007 4:53 PM Re sults for this PANEL [employer] procedure are i n the results section. CL AFF MICRO Routine 11/03/2007 4:53 PM Results f or this EXAM-URINE [employer] procedure are i n the results section. documented in this encounter Results CHEST X-RAY 2 VW (11/03/2007 5:20 PM [employer]) Anatomical Region Laterality Modality Other Specimen (Source) Anatomical Collection Method Collection Time Re ceived Time Location / / Volume Laterality 11/03/2007 5:20 PM [employer] Impressions 11/04/2007 12:52 PM [employer] CHEST X-RAY, TWO VIEWS, Nov 03, 2007, 5: 20:00 PM. CLINICAL INDICATION: Cough. VIEWS: PA and lateral views of the chest were obtained. COMPARISON: There are no prior images of the chest for comparison. FINDINGS: The heart and mediastinal cont ours are within normal limits. Lungs are clear. The visualized bones an d soft tissues are unremarkable. IMPRESSION: Normal chest x-ray. Magdaleno Benitez MD GENERAL IMAGING MICRO EXAM-URINE (11/03/2007 4:53 PM [employer]) P athologist Signature WBC Urine O - 2 0 - 2 /HPF [facility] RBC Urine O - 2 0 - 2 /HPF [facility] Squamous EPI Few FEW /LPF [facility] Specimen Anatomical Collection Method Collection Time Receive d Time (Source) Location / / Volume Laterality 11/03/2007 4:53 PM 7 5:10 [employer] PM [employer] Néstor Huerta MD LABORATORY Performing Organization Address City/State/ZIP Code Phon e Number [facility] [address] [place], [place] [address] [facility] (ABNORMAL) UA MICRO IF POSITIVE (11/03/2007 4:53 PM [employer]) Component Value Ref Test Analysis Performed At Patholo gist Range Method Time Signature Color Urine Yellow [facility] Appearance Urine Clear [facility] Glucose Urine Negative NEG [place] mg/dL [facility] Bilirubin Urine Negative NEG [facility] Ketones Urine Negative NEG [place] mg/dL [facility] Specific [place] 1.020 1.003 - [place] Urine 1.035 [facility] Blood Urine Negative NEG [facility] pH Urine 6.0 5.0 - [place] 7.0 pH [facility] Protein Albumin Trace (A) NEG [place] Urine mg/dL [facility] Urobilinogen 1.0 0.2 - [place] Urine 1.0 [facility] EU/dL [facility] Nitrite Urine Negative NEG [facility] Leukocyte Negative NEG [facility] Esterase Urine [facility] Source Unspecified [facility] Urine [facility] Specimen Anatomical Collection Method Collection Time Receive d Time (Source) Location / / Volume Laterality 11/03/2007 4:53 PM 7 5:10 [employer] PM [employer] Néstor Huerta MD LABORATORY Performing Organization Address [facility] Phon e Number [facility] [address] [place], [place] [address] [facility] HCG QUAL URINE (11/03/2007 4:53 PM [employer]) P athologist Signature HCG Qual Urine Negative NEG [facility] Specimen Anatomical Collection Method Collection Time Receive d Time (Source) Location / / Volume Laterality 11/03/2007 4:53 PM 7 5:10 [employer] PM [employer] Néstor Huerta MD LABORATORY Performing Organization Address City/[facility] Phon e Number [facility] [address] [place], [place] [address] [facility] DRUGS OF ABUSE, URINE (11/03/2007 4:53 PM [employer]) Component Value Ref Test Analysis Performed At Patholo gist Range Method Time Signature PCP Qual Urine Not Detected [facility] ?Reference Range: ??Not Detected [facility] Cannabinoids Urine Detected, Abnormal Result [facility] ?Reference Range: ??Not Detected [facility] Amphetamine Qual Not Detected [facility] Urine ?Reference Range: ??Not Detected [facility] Methamphetamine Not Detected [facility] Qual Urine ?Reference Range: ??Not Detected [facility] Barbituates Qual Not Detected [facility] ?Reference Range: ??Not Detected [facility] Benzodiazepine Not Detected [facility] Urine ?Reference Range: ??Not Detected [facility] Cocaine Qual Urine Not Detected [facility] ?Reference Range: ??Not Detected [facility] Opiates Qualitative Not Detected [facility] Urine ?Reference Range: ??Not Detected [facility] Tricyc Anti Qual Not Detected [facility] Urine ?Reference Range: ??Not Detected [facility] Specimen Anatomical Collection Method Collection Time Receive d Time (Source) Location / / Volume Laterality 11/03/2007 4:53 PM 7 5:10 [employer] PM [employer] Néstor Huerta MD LABORATORY Performing Organization Address City/[facility]/ZIP Code Phon e Number [facility] [address] [place], [place] [address] [facility] A.M.A. BASIC METABOLIC PANEL (11/03/2007 4:53 PM [employer]) P athologist Signature Sodium 140 133 - 144 [facility] mmol/L [facility] Potassium 3.8 3.4 - 5.3 [facility] mmol/L [facility] Chloride 105 96 - 110 [facility] mmol/L [facility] Carbon Dioxide 22 20 - 32 [facility] mmol/L [facility] Anion Gap 13 6 - 17 [facility] mmol/L [facility] Glucose 95 60 - 99 [facility] mg/dL [facility] Urea Nitrogen 13 5 - 24 [facility] mg/dL [facility] Creatinine 0.70 0.60 - [facility] 1.20 mg/dL [facility] GFR Estimate >90 >60 [facility] mL/min/1.7 [facility] m2 [facility] GFR Estimate If >90 >60 [facility] Black mL/min/1.7 [facility] m2 [facility] Calcium 9.1 8.7 - 10.8 [facility] mg/dL [facility] Specimen Anatomical Collection Method Collection Time Receive d Time (Source) Location / / Volume Laterality 11/03/2007 4:53 PM 7 5:10 [employer] PM [employer] Néstor Huerta MD LABORATORY Performing Organization Address City/[facility]/ZIP Code Phon e Number [facility] [address] [place], [place] [address] [facility] (ABNORMAL) CBC WITH PLATELETS, DIFF (11/03/2007 4:53 PM [employer]) Patholo gist Method Time Signature WBC 5.5 4.0 - [facility] 11.0 [facility] 10e9/L [facility] RBC Count 4.78 3.8 - 5.2 [place] 10e12/L [facility] Hemoglobin 14.4 11.7 - [facility] 15.7 g/dL [facility] Hematocrit 44.4 35.0 - [facility] 47.0 % [facility] MCV 93 78 - 100 [facility] MCH 30.2 26.5 - [place] 33.0 pg [facility] MCHC 32.5 31.5 - [place] 36.5 g/dL [facility] RDW 13.7 10.0 - [place] 15.0 % [facility] Platelet Count 203 150 - 450 [place] 10e9/L [facility] Diff Method Automated [place] Method [facility] % Neutrophils 67 40 - 75 % [facility] % Lymphocytes 19 (L) 20 - 48 % [facility] % Monocytes 12 0 - 12 % [facility] % Eosinophils 1 0 - 6 % [facility] % Basophils 1 0 - 2 % [facility] Absolute 3.6 1.6 - 8.3 [place] Neutrophil 10e9/L [facility] Absolute 1.0 0.8 - 5.3 [place] Lymphocytes 10e9/L [facility] Absolute 0.7 0.0 - 1.3 [place] Monocytes 10e9/L [facility] Absolute 0.1 0.0 - 0.7 [place] Eosinophils 10e9/L [facility] Absolute 0.1 0.0 - 0.2 [place] Basophils 10e9/L [facility] Specimen Anatomical Collection Method Collection Time Receive d Time (Source) Location / / Volume Laterality 11/03/2007 4:53 PM 7 5:10 [employer] PM [employer] Néstor Huerta MD LABORATORY Performing Organization Address City/State/ZIP Code Phon e Number [facility] [address] [place], [place] [address] [facility] documented in this encounter Visit Diagnoses Not on filedocumented in this encounter Care Teams Entry Level Lab Technician Relationship Specialty Start Date End Date Jazmin Quiros MD PCP - General 12/01/05 07/25/10 documented as of this encounter
--- OUTSIDE RECORDS SUMMARY | 2022-08-31 22:28 | XMS_ITS | Encounter Summary ---
:1990 Author Organization [place] Address [address] [place] [address] Care Team Providers Name Role Phone Unavailable Primary Care Provider Unavailable Reason for Visit Reason Comments Eye Problem Rt. eye lids swollen and tram nful mornings only, tongue swelling x 3days Pain mid- and both lower quad abd ominal pain x 4 days, also c/o worse menstral cramps Chest Pain mid lower stabbing throbbing pain x1 day Encounter Details Date Type Department Care Team Description 11/26/2005 Office Visit [facility] Lauren, ABDOMINAL PAIN PERIUMBILICAL (Primary Dx); CLINIC Caprice Payne MD SWELLING IN HEAD & NECK [address] [place] [address] (Wo rk) Social History Tobacco Use Types Packs/Day Years Used Date Smoking Tobacco: Former Cigarettes Comments: tried it only Alcohol Use Standard Drinks/Week Comments No 0 (1 standard drink = 0.6 oz pure alcoho l) Sex Assigned at Date Recorded Not on file documented as of this encounter Last Filed Vital Signs Vital Sign Reading Time Taken Comments Blood Pressure 108/64 11/26/2005 3:30 PM FIELD ASSESSOR Pulse 64 11/26/2005 3:30 PM FIELD ASSESSOR Temperature 36.3 ??C (97.4 ??F) 11/26/2005 3:30 PM FIELD ASSESSOR Respiratory Rate 16 11/26/2005 3:30 PM FIELD ASSESSOR Oxygen Saturation - - Inhaled Oxygen Concentration - - Weight 74.8 kg (165 lb) 11/26/2005 3:30 PM FIELD ASSESSOR Height - - Body Mass Index - - documented in this encounter Progress Notes Caprice Ladd - 11/26/2005 5:40 PM CST SUBJECTIVE: Keyla Porter is a 15 year old female who complains of tongue pain and swelling in the am for the last 3 days. The swelling goes away by noon and does not return for the rest of the day. She also has had swelling around the right eye with no redness. No throat swelling, hives, rash, hand or leg swelling, or shortness of breath. She has no history of allergies to foods. She has not eaten any new food and takes no prescription or OTC meds. No new cosmetics. No family history of angioedema. She also complains of abdominal pain- both sides and mainly upper in the last 4 days after eating. She has vomited twice and can only eat about one third of her meals. No fever or chills or change in bowel movements. She has tried different foods which do not make a difference. She has not been sexually active for 4 months. OBJECTIVE: HEENT: atraumatic/normocephalic. PERRL. Conjunctivae clear.Normal lids. Left and right tympanic membranes lu with normal landmarks. No nasal discharge. Oropharynx is pink and moist. Tongue is normal size with white coating. Neck: Supple. No lymphadenopathy or thyromegaly. Lungs: Clear to auscultation. No tachypnea or retractions. Heart: RRR. S1 and S2 normal. No murmurs, rubs, or gallops. Abdomen: Soft. Normal bowel sounds. No distension. Mild epigatric tenderness. No masses, rebound, orguarding. ASSESSMENT / PLAN: 789.05 ABDOMINAL PAIN PERIUMBILICAL (primary encounter diagnosis) Note: Spoke with patient and her stepmother about differential: gastritis, PUD, gallbladder disease,gastroenteritis. Will get bloodwork and treat with [id number]. She is to avoid fatty foods. If no better in 2-3 days will schedule abdominal ultrasound. Plan: CBC WITH PLATELETS, DIFF, A.M.A. COMPREHENSIVE MET.PANEL, RANITIDINE HCL 150 MG OR CAPS BID, She should go to ER for increased pain, fever, worsening vomiting. 784.2 SWELLING IN HEAD & NECK Note: Etiology unclear-possible new onset angioedema. Plan: Take Benadryl OTC at bedtime and PRN in am. If swelling not improved will refer to mechanical service specialist. Call 911 for any throat swelling or difficulty breathing. CAPRICE LADD MD D ASSESSOR Caprice Ladd - 11/26/2005 3:30 PM FIELD ASSESSOR Addended by: CAPRICE LADD on: 11/29/2005 12:44:15 PM Modules accepted: Orders D ASSESSOR documented in this encounter Nursing Notes 11/26/2005 3:30 PM CST >> SUDHAKAR TOSCANO 11/26/2005 4:04 pm Initial BP 108/64 Pulse 64 Temp (Src) 97.4 (Tympanic) Resp 16 Wt 165 lbs (74.8kg) LMP 11/26/2005 There is no height information to calculate BMI. . BP cuff size: regular Do you feel safe in your environment? Yes Sudhakar Toscano LPN documented in this encounter Plan of Treatment Not on filedocumented as of this encounter Procedures Procedure Name Priority Date/Time Associated Diagnosis Comme nts HC US ABDOMEN Routine 12/01/2005 12:48 Abdominal pain, Results for this COMPLETE PM FIELD ASSESSOR periumbilic procedure are i n the results section. CL AFF CBC WITH Routine 11/26/2005 4:50 Abdominal Pain Results for this PLATELETS, DIFF PM FIELD ASSESSOR Periumbilical procedure a re in the results section. HCL COMPREHENSIVE Routine 11/26/2005 4:50 Abdominal Pain Resul ts for this METABOLIC PANEL PM FIELD ASSESSOR Periumbilical procedure a re in the results section. documented in this encounter Results US ABDOMEN COMPLETE (12/01/2005 12:48 PM FIELD ASSESSOR) Anatomical Region Laterality Modality Other Specimen (Source) Anatomical Collection Method Collection Time Re ceived Time Location / / Volume Laterality 12/01/2005 12:48 PM FIELD ASSESSOR Impressions 12/02/2005 8:38 AM FIELD ASSESSOR ABDOMINAL ULTRASOUND: ??12/01/2005 ? HISTORY: ??Periumbilical abdominal pain. ? FINDINGS: ?? The liver is unremarkable i n appearance without focal lesion. ??The gallbladder is normal with out intra-luminal stones or sludge. ??The common duct is normal abdullahi uring 2 mm in diameter. ??The pancreas, spleen, and kidneys are unrema rkable. ??No renal calculi or hydronephrosis is evident. ??The proxima l abdominal aorta and IVC are within normal limits. ? IMPRESSION: ??Unremarkable abdominal ult rasound. ??No evidence of gallbladder abnormality or gallstones. Caprice Ladd MD SPECIAL IMAGING STUDIES A.M.A. COMPREHENSIVE MET.PANEL (11/26/2005 4:50 PM FIELD ASSESSOR) athologist Signature Sodium 142 133 - 144 [facility] mmol/L [facility] Potassium 4.5 3.4 - 5.3 [facility] mmol/L [facility] Chloride 105 96 - 110 [facility] mmol/L [facility] Carbon Dioxide 29 20 - 32 [facility] mmol/L [facility] Anion Gap 7 6 - 17 [facility] mmol/L [facility] Glucose 104 60 - 110 [facility] mg/dL [facility] Urea Nitrogen 14 5 - 24 [facility] mg/dL [facility] Creatinine 0.80 0.60 - [place] 1.20 mg/dL [facility] GFR Estimate >80 >60 [facility] mL/min/1.7 [facility] m2 [facility] GFR Estimate If >80 >60 [facility] Black mL/min/1.7 [facility] m2 [facility] Calcium 9.6 8.7 - 10.8 [facility] mg/dL [facility] Bilirubin Total 0.2 0.2 - 1.3 [facility] mg/dL [facility] Albumin 4.1 3.3 - 4.6 [facility] g/dL [facility] Protein Total 7.3 6.0 - 8.2 [facility] g/dL [facility] Alkaline 48 40 - 150 [facility] Phosphatase U/L [facility] ALT 16 0 - 50 U/L [facility] AST 19 0 - 35 U/L [facility] Specimen Anatomical Collection Method Collection Time Receive d Time (Source) Location / / Volume Laterality 11/26/2005 4:50 PM 6 4:53 FIELD ASSESSOR PM FIELD ASSESSOR Caprice Ladd MD LABORATORY Performing Organization Address City/State/ZIP Code Phon e Number [facility] [address] [place], [place] [address] [facility] CBC WITH PLATELETS, DIFF (11/26/2005 4:50 PM FIELD ASSESSOR) Patholo gist Method Time Signature WBC 6.4 4.0 - [facility] 11.0 [facility] 10e9/L [facility] RBC Count 4.21 3.7 - 5.3 [place] 10e12/L [facility] Hemoglobin 12.9 11.7 - [facility] 15.7 g/dL [facility] Hematocrit 37.5 35.0 - [facility] 47.0 % [facility] MCV 89 77 - 100 [place] fl [facility] MCH 30.6 26.5 - [facility] 33.0 pg [facility] MCHC 34.4 32.0 - [place] 36.0 g/dL [facility] RDW 14.1 10.0 - [place] 15.0 % [facility] Platelet Count 216 150 - 450 [place] 10e9/L [facility] Diff Method Automated [place] Method [facility] % Lymphocytes 39 26 - 50 % [facility] % Monocytes 7 0 - 12 % [facility] % Granulocytes 54 32 - 64 % [facility] Absolute 2.5 1.0 - 5.8 [place] Lymphocytes 10e9/L [facility] Absolute 0.4 0.0 - 1.3 [place] Monocytes 10e9/L [facility] Absolute 3.5 1.3 - 7.0 [place] Granulocytes 10e9/L [facility] Specimen Anatomical Collection Method Collection Time Receive d Time (Source) Location / / Volume Laterality 11/26/2005 4:50 PM 6 4:53 FIELD ASSESSOR PM FIELD ASSESSOR Caprice Ladd MD LABORATORY Performing Organization Address City/State/ZIP Code Phon e Number [address] [address] [facility] documented in this encounter Visit Diagnoses Diagnosis Abdominal pain, periumbilic - Primary Swelling, mass, or lump in head and neck documented in this encounter
--- OUTSIDE RECORDS SUMMARY | 2022-08-31 22:28 | XMS_ITS | Encounter Summary ---
:1990 Author Organization [place] Address [address] [place] [address] Care Team Providers Name Role Phone Jazmin Quiros MD Primary Care Provider [phone] Reason for Visit Reason Comments Contraception w/l to change contraception, w/l to try Depo, quit taking ocp 09-25 Encounter Details Date Type Department Care Team Description 02/09/2006 Office Visit [facility] ANDRE L[place] NOS (Primary Dx); CLINIC Caprice Payne MD ABDOMINAL PAIN EPIGASTRIC; [address] [place], [place] [id number] (Wo rk) Social History Tobacco Use Types Packs/Day Years Used Date Smoking Tobacco: Never Cigarettes Comments: tried it only Alcohol Use Standard Drinks/Week Comments No 0 (1 standard drink = 0.6 oz pure alcoho l) Sex Assigned at Date Recorded Not on file documented as of this encounter Last Filed Vital Signs Vital Sign Reading Time Taken Comments Blood Pressure 110/64 02/09/2006 3:45 PM EQUINE SCIENCE INSTRUCTOR Pulse 78 02/09/2006 3:45 PM EQUINE SCIENCE INSTRUCTOR Temperature 36.4 ??C (97.6 ??F) 02/09/2006 3:45 PM EQUINE SCIENCE INSTRUCTOR Respiratory Rate 18 02/09/2006 3:45 PM EQUINE SCIENCE INSTRUCTOR Oxygen Saturation - - Inhaled Oxygen Concentration - - Weight 73.9 kg (163 lb) 02/09/2006 3:45 PM EQUINE SCIENCE INSTRUCTOR Height 171.5 cm (5' 7.5) 02/09/2006 3:45 PM EQUINE SCIENCE INSTRUCTOR Body Mass Index 25.15 02/09/2006 3:45 PM EQUINE SCIENCE INSTRUCTOR Body Mass Index Percentile 83.70 % 02/09/2006 3:45 PM CS T Growth Chart: [facility] (Girls, 2-20 Years) documented in this encounter Progress Notes Caprice Ladd - 02/10/2006 5:39 AM CST SUBJECTIVE: Keyla Porter is a 15 year old female here with her mother. She has no further abdominal pain. She finished the rx for Prilosec and has been off it for awhile with no pain. She is feeling more cheerful. She sees a counselor in [place] and that is helping a lot. She is back with her boyfriend. She did not take any antidepressants. She wants to try depo for contraception. She was on OCPs in the past but does not want to remember to take a pill every day. She has researched depo on the web. She has regular periods-last one in dec. She has not been sexually active for 6 months. She had a normal PAP in 05/25. No medical problems. OBJECTIVE:BP 110/64 Pulse 78 Temp (Src) 97.6 (Tympanic) Resp 18 Ht 5' 7.5 (1.72m) Wt 163 lbs (73.9kg) LMP 01/16/2006 Psych: Patient is awake, alert, and oriented times three. Mood and affect are appropriate. Speech isfluent and logical. No suicidal ideation. ASSESSMENT / PLAN: V25.9 CONTRACEPTIVE MANGMT NOS (primary encounter diagnosis) Note: I feel she is a good candidate for depo. Counselled about risks and benefits and gave pt. Info. Plan: MEDROXYPROGESTER ACETATE INJ, DEPO-PROVERA 150 MG/ML IM SUSP Return in 3 mo for repeat injection and in 05/26 for PAP 789.06 ABDOMINAL PAIN EPIGASTRIC Note: Resolved Plan: No further treatment needed [address] DEPRESSIVE DISORDER NEC Note: Improved Plan: Continue counselling. CAPRICE LADD MD NE SCIENCE INSTRUCTOR documented in this encounter Nursing Notes 02/09/2006 3:45 PM CST >> HEATHER MUNIZ 02/09/2006 3:31 pm Initial BP 110/64 Pulse 78 Temp (Src) 97.6 (Tympanic) Resp 18 Ht 5' 7.5 (1.72m) Wt 163 lbs (73.9kg) LMP 01/16/2006 Body mass index is 25.14 kg/(m^2). . BP cuff size: regular Do you feel safe in your environment? Yes contraception documented in this encounter Plan of Treatment Not on filedocumented as of this encounter Visit Diagnoses Diagnosis Unspecified contraceptive management - P rimary Abdominal pain, epigastric Depressive disorder, not elsewhere class ified documented in this encounter Care Teams Wool Batting Worker Relationship Specialty Start Date End Date Jazmin Quiros MD PCP - General 12/01/05 07/25/10 documented as of this encounter
--- OUTSIDE RECORDS SUMMARY | 2022-08-31 22:28 | XMS_ITS | Encounter Summary ---
:1990 Author Organization [place] Address [address] [place] [address] Care Team Providers Name Role Phone Jazmin Quiros MD Primary Care Provider [phone] Reason for Visit Reason Comments RECHECK 11/26/2005 appt. 12/01/2005 ultrasound Encounter Details Date Type Department Care Team Description 12/06/2005 Office Visit [facility] [place] [facility] Caprice Payne MD (Primary Dx) [address] [place], [place] [address] (Wo rk) Social History Tobacco Use Types Packs/Day Years Used Date Smoking Tobacco: Former Cigarettes Comments: tried it only Alcohol Use Standard Drinks/Week Comments No 0 (1 standard drink = 0.6 oz pure alcoho l) Sex Assigned at Date Recorded Not on file documented as of this encounter Last Filed Vital Signs Vital Sign Reading Time Taken Comments Blood Pressure 108/72 12/06/2005 1:30 PM JUDGE CLERK Pulse 64 12/06/2005 1:30 PM JUDGE CLERK Temperature 36.4 ??C (97.6 ??F) 12/06/2005 1:30 PM JUDGE CLERK Respiratory Rate 20 12/06/2005 1:30 PM JUDGE CLERK Oxygen Saturation - - Inhaled Oxygen Concentration - - Weight 75.3 kg (166 lb) 12/06/2005 1:30 PM JUDGE CLERK Height - - Body Mass Index - - documented in this encounter Progress Notes Caprice Ladd - 12/06/2005 4:43 PM CST SUBJECTIVE: The patient is brought to the clinic by her step mother. She is here to follow-up of nausea and vomiting. She had a negative right upper quadrant ultrasound. She took the ranitidine for about 4 days then stopped but it did not seem to help. She has some epigastric pain after she eats and she has been vomiting every other day. She denies bulemia. She has been seeing a counsellor and thinksshe may be depressed. There has been a lot of stress and changes lately but she is not comfortable about talking today. The tongue swelling has resolved. OBJECTIVE: The abdomen is soft without tenderness, guarding, mass, rebound or organomegaly. Bowel sounds are normal. ASSESSMENT / PLAN: 787.01 NAUSEA WITH VOMITING (primary encounter diagnosis) Note: Etiology unclear. This may represent gastritis, PUD or possibly nausea or vomiting related to anxiety/depression. Will try PPI and if no response consider EGD. Plan: Prilosec 20 mg daily. Call if no improvement in 5 days. CAPRICE LADD MD E CLERK documented in this encounter Nursing Notes 12/06/2005 1:30 PM CST >> SUDHAKAR TOSCANO 12/06/2005 1:32 pm Initial BP 108/72 Pulse 64 Temp (Src) 97.6 (Tympanic) Resp 20 Wt 166 lbs (75.3kg) LMP 11/26/2005 There is no height information to calculate BMI. . BP cuff size: regular Do you feel safe in your environment? Yes Sudhakar Toscano LPN documented in this encounter Plan of Treatment Not on filedocumented as of this encounter Visit Diagnoses Diagnosis Nausea with vomiting - Primary documented in this encounter Care Teams Lobbyist Relationship Specialty Start Date End Date Jazmin Quiros MD PCP - General 12/01/05 07/25/10 documented as of this encounter
--- OUTSIDE RECORDS SUMMARY | 2022-08-31 22:28 | XMS_ITS | Encounter Summary ---
:1988 Author Organization [facility] Address [address] [place] [address] Care Team Providers Name Role Phone Unavailable Primary Care Provider Unavailable Reason for Visit Reason Comments Pharyngitis Dr. Pearl pt. nurse only vis it on ENT /URI template Encounter Details Date Type Department Care Team Description 06/28/2005 Allied Health/Nurse [facility] jono (Dr. Pearl Visit CLINIC pt. nurse only visi... Social History Tobacco Use Types Packs/Day Years Used Date Smoking Tobacco: Never Assessed Sex Assigned at Date Recorded Not on file documented as of this encounter Plan of Treatment Not on filedocumented as of this encounter Procedures Procedure Name Priority Date/Time Associated Diagnosis Comme nts HCL BETA STREP Routine 06/28/2005 2:50 PM Acute Pharyngitis Re sults for this CONFIRM CDT procedure are i n the results section. HCL STREP GROUP A Routine 06/28/2005 2:50 PM Acute Pharyngitis Results for this AG (RAPID) CDT procedure are i n the results section. documented in this encounter Results BETA STREP CONFIRM (06/28/2005 2:50 PM CDT) [facility] Method Time Signature Specimen Throat MOBILE Description [facility] Culture Micro Beta MOBILE hemolytic [facility] Streptococcus REGIONAL , not group A [facility]OSPITAL [facility] Report status FINAL MOBILE [id number] [facility] Specimen Anatomical Collection Method Collection Time Receive d Time (Source) Location / / Volume Laterality 06/28/2005 2:50 PM 5 4:16 CDT PM CDT Dar Pearl MD LABORATORY Performing Organization Address City/State/ZIP Code Phon e Number [facility] [address] [place], [place] [address] [facility] STREP GROUP A AG (RAPID) (06/28/2005 2:50 PM CDT) [facility] Method Time Signature Specimen Throat MOBILE Description [facility] Rapid Strep A NEG MOBILE Screen [facility] Report status FINAL MOBILE [id number] [facility] Specimen Anatomical Collection Method Collection Time Receive d Time (Source) Location / / Volume Laterality 06/28/2005 2:50 PM 5 4:05 CDT PM CDT Dar Pearl MD LABORATORY Performing Organization Address City/State/ZIP Code Phon e Number [facility] [address] [address] [facility] documented in this encounter Visit Diagnoses Diagnosis Acute pharyngitis - Primary documented in this encounter
--- OUTSIDE RECORDS SUMMARY | 2022-08-31 22:28 | XMS_ITS | Encounter Summary ---
:1990 Author Organization [facility] Address [address] [place] [address] Care Team Providers Name Role Phone Jazmin Quiros MD Primary Care Provider [phone] Reason for Visit Reason Comments Pelvic Pain Pt here for pelvic pain whic h has gone on for about the last 3 months. She was seen in er last week for really bad pain and bleeding. On depo since age 15. Encounter Details Date Type Department Care Team Description 03/26/2010 Office Visit [facility] Bosch Pelvic Pain; [facility] MD Paramjit Abnormal Uterine Bleeding [facility] [address] [place] [address] Social History Tobacco Use Types Packs/Day Years Used Date Smoking Tobacco: Every Day Cigarettes 0.1 Comments: 2-3 a day, cutting down 6-7-09 Alcohol Use Standard Drinks/Week Comments No 0 (1 standard drink = 0.6 oz pure alcoho l) Sex Assigned at Date Recorded Not on file documented as of this encounter Last Filed Vital Signs Vital Sign Reading Time Taken Comments Blood Pressure 120/82 03/26/2010 2:38 PM CDT Pulse - - Temperature - - Respiratory Rate - - Oxygen Saturation - - Inhaled Oxygen Concentration - - Weight 61.9 kg (136 lb 6.4 oz) 03/26/2010 2:38 PM CDT Height 168.9 cm (5' 6.5) 03/26/2010 2:38 PM CDT Body Mass Index 21.69 03/26/2010 2:38 PM CDT documented in this encounter Progress Notes Lex Alexis - 04/09/2010 10:11 AM CDT Patient is a 19-year-old induced AB one (D&E procedure) who presents today for evaluation of treatment of pelvic pain. She states she had a kidney infection in the past and developed pelvic pain. The pain has been gradually increasing and has doubled her over silk much so that she could not move. She also experienced massive bleeding at that time. Her last Depo-Provera injection was 07/30. She was seen in the emergency room and suggested that she may have endometriosis. Ultrasound showed fluid in the uterus. Her pain [...] is negative. Physical Exam: Vital signs: Bp: 120/82 R: Data Unavailable P: Data Unavailable T: Data Unavailable Ht: 5' 6.5 Wt: 136 lbs 6.4 oz General Appearance: Well developed, well nourished white female who is oriented x 3 with a normal gait and is no acute distress. Neck: Supple with no cervical or supraclavicular adenopathy.. Thyroid: Normal. Lungs: Clear. Heart: Normal sinus rhythm without significant murmurs. Breasts: Not examined. Abdomen: Soft. No masses, organomegaly, hernias or inguinal adenopathy noted. There is mild tenderness in the lower abdomen bilaterally without rebound or guarding. Extremities: No cyanosis or edema. Skin: Clear. Pelvic Bimanual exam: Uterus is anterior, mobile, normal size, slightly tender. There are no adnexal masses or tenderness. ASSESSMENT: 1. Increasingly severe midline lower abdominal [...] definitely wanted to go ahead with the laparoscopy. The surgery will be scheduled and she will return for a preoperative exam and review the consent form. Tray Alexis MD At least 30 minutes was spent with the patient, more than half spent discussing her problems. documented in this encounter Nursing Notes 03/26/2010 2:30 PM CDT >> JON ALLAN Marizol March 26, 2010 2:41 PM Initial BP 120/82 Ht 5' 6.5 (1.689 m) Wt 136 lb 6.4 oz (61.871 kg) Estimated Body mass index is21.69 kg/(m^2) as calculated from the following: Height as of this encounter: 5' 6.5(1.689 m). Weight as of this encounter: 136 lb 6.4 oz(61.871 kg). . Olga Allan CMA documented in this encounter Plan of Treatment Not on filedocumented as of this encounter Visit Diagnoses Diagnosis Pelvic pain Unspecified symptom associated with fema le genital organs Abnormal uterine bleeding Unspecified disorder of menstruation and other abnormal bleeding from female genital tract documented in this encounter Care Teams Soldering Machine Tender Relationship Specialty Start Date End Date Jazmin Quiros MD PCP - General 12/01/05 07/25/10 documented as of this encounter
--- OUTSIDE RECORDS SUMMARY | 2022-08-31 22:28 | XMS_ITS | Encounter Summary ---
:1990 Author Organization [place] Address [address] [place] [address] Care Team Providers Name Role Phone Jazmin Quiros MD Primary Care Provider [phone] Encounter Details Date Type Department Care Team Description 03/16/2010 Hospital [facility] [address] [place], [place] [address] (Wo rk) Social History Tobacco [...] on filedocumented in this encounter Care Teams Underwriting Internship Relationship Specialty Start Date End Date Jazmin Quiros MD PCP - General 12/01/05 07/25/10 documented as of this encounter
--- OUTSIDE RECORDS SUMMARY | 2022-08-31 22:28 | XMS_ITS | Encounter Summary ---
:1990 Author Organization [place] Address [address] [place] [address] Care Team Providers Name Role Phone Dayna Kirby MD Primary Care Provider [phone] Reason for Visit Reason Comments Care Gastric Problem ran out of reglan Encounter Details Date Type Department Care Team Description 03/03/2009 Office [facility] Dayna Kirby Sup ervision of Normal First (Primary Dx); Visit CLINIC MD Janessa Vaginitis [address] [place] [address] Social History Tobacco Use Types Packs/Day Years [...] Sign Reading Time Taken Comments Blood Pressure 118/52 03/03/2009 1:24 PM CDT Pulse - - Temperature - - Respiratory Rate - - Oxygen Saturation - - Inhaled Oxygen Concentration - - Weight 69.4 kg (153 lb) 03/03/2009 1:24 PM CDT Height - - Body Mass Index 24.14 02/17/2009 4:17 PM CDT documented in this encounter Progress Notes Janis Saha - 03/03/2009 1:25 PM CDT SUBJECTIVE: George Davila is an 18 year old female here for initial OB visit. Past Medical History of Father of Baby: No significant medical history ROS: GENERAL: No change in weight, sleep or appetite. Normal energy. No fever or chills EYES: Negative for vision changes or eye problems ENT: No problems with ears, nose or throat. No difficulty swallowing. RESP: No coughing, wheezing or shortness of breath CV: No chest pains or palpitations GI: No nausea, vomiting, heartburn, abdominal pain, diarrhea, constipation or change in bowel habits : No urinary frequency or dysuria, bladder or kidney problems; some vag d.x MUSCULOSKELETAL: No significant muscle or joint pains NEUROLOGIC: No headaches, numbness, tingling, weakness, problems with balance or coordination Psychiatric: some moodiness. HEME/IMMUNE/ALLERGY: No history of bleeding or clotting problems or anemia. No allergies or immune system problems ENDOCRINE: No history of thyroid disease, diabetes or other endocrine disorders SKIN: No rashes,worrisome lesions or skin problems History Since Last Menstrual Period: Nausea EXAM: Blood pressure 118/52, weight 153 lb (69.4 kg), last menstrual period OB (10/15/09). GENERAL APPEARANCE: healthy, alert and no distress [...] HSM or masses and bowel sounds normal MS: extremities normal- no gross deformities noted, no evidence of inflammation in joints, FROM in all extremities. SKIN: no suspicious lesions or rashes NEURO: Normal strength and tone, sensory exam grossly normal, mentation intact and speech normal PSYCH: mentation appears normal. and affect normal/bright Pelvix exam: Perineum: Intact; Vulva: Normal genitalia; Vagina: Normal mucosa, thin lu discharge, pH ; Clue cells 2few; Cervix: Parous, closed, mobile, discharge; Uterus: 8 weeks, 8cm, Normal shape, position and consistency; Adnexa: Not palpable; Rectum: Normal; Bony Pelvis: Adequate. ASSESSMENT/ PLAN: Follow up in 4 weeks. Normal exercise. vitamins. Anticipated weight gain. documented in this encounter Plan of Treatment Not on filedocumented as of this encounter Procedures Procedure Name Priority Date/Time Associated Diagnosis Comme nts CL AFF Routine 03/03/2009 5:08 PM Supervision of Results for this N.GONORRHOEAE, DNA CDT Normal First procedure are in AMP PROBE the results section. CL AFF CHLMYD Routine 03/03/2009 5:08 PM Supervision of Result s for this TRACH, DNA, AMP CDT Normal First procedure ar e in PROBE the results section. HCL WET PREP Routine 03/03/2009 5:05 PM Supervision of Results for this CDT Normal First procedure are i n the results section. HCL VDRL TITER CSF Routine 03/03/2009 2:15 PM Supervision of R esults for this CDT Normal First procedure are i n the results section. CL AFF HEP B Routine 03/03/2009 2:15 PM Supervision of Results for this SURFACE ANTIGEN CDT Normal First procedure ar e in the results section. HCL RUBELLA AB IGG Routine 03/03/2009 2:15 PM Supervision of R esults for this CDT Normal First procedure are i n the results section. HCL HIV 1 & 2 Routine 03/03/2009 2:15 PM Supervision of Result s for this ANTIBODY CDT Normal First procedure are i n the results section. HCL HPV SCRN W/RFLX Routine 03/03/2009 12:00 AM R esults for this TO GENOTYPE CDT procedure are i n the results section. HCL PAP THIN LAYER Routine 03/03/2009 12:00 AM Supervision of Results for this SCREEN CDT Normal First procedure are i n the results section. documented in this encounter Results CHLMYD TRACH, DNA [[id number]] (03/03/2009 5:08 PM CDT) Component Value Ref Test Analysis Performed At [facility] gist Range Method Time Signature Specimen Vagina [place] Description [facility] LAB Chlamydia Negative for C. trachomatis rRNA by erp specialist mediated amplification. [facility] Trachomatis A negative result by transc ription mediated amplification does not preclude the [facility] PCR presence of C. trachomatis infection because results are dependent on proper CAMPUS LABS and adequate collection, absence of inhibitors, and suffici ent rRNA to be detected. Specimen Anatomical Collection Method Collection Time Receive d Time (Source) Location / / Volume Laterality 03/03/2009 5:08 PM 9 5:14 CDT PM CDT Dayna Kirby MD LABORATORY Performing Organization Address City/State/ZIP Code Phon e Number [facility] [address] [place] [address] [facility] [place] LAB [facility] LABS N.GONORRHOEAE, DNA, (GC) [[id number]] (03/03/2009 5:08 PM CDT) Component Value Ref Test Analysis Performed At [facility] Starteed Range Method Time Signature Specimen Vagina [facility] LAB N Gonorrhea Negative for N. gonorrhoeae rRNA by erp specialist mediated amplification. [facility] PCR A negative result by transc ription mediated amplification does not preclude the [facility] presence of N. gonorrhoeae infection because re sults are dependent on proper CAMPUS LABS and adequate collection, absence of inhibitors, and suffici ent rRNA to be detected. Specimen Anatomical Collection Method Collection Time Receive d Time (Source) Location / / Volume Laterality 03/03/2009 5:08 PM 9 5:14 CDT PM CDT Dayna Kirby MD LABORATORY Performing Organization Address City/[facility]/ZIP Code Phon e Number [facility] [address] [place], [place] [id number] [place] [address] LAB [facility] LABS A WET PREP [[id number]] (03/03/2009 5:05 PM CDT) [facility] Starteed Method Time Signature Specimen Vagina [facility] LAB Wet Prep No Trichomonas ALNA seen No yeast [facility] seen Few ue [facility] cells seen LAB Report status FINAL ALNA 03/03/2009 [facility] LAB Specimen Anatomical Collection Method Collection Time Receive d Time (Source) Location / / Volume Laterality 03/03/2009 5:05 PM 9 5:14 CDT PM CDT Dayna Kirby MD LABORATORY Performing Organization Address City/State/ZIP Code Phon e Number [facility] [address] [place], [place] [address] [facility] LAB ANTI-TREPONEMIA EIA (03/03/2009 2:15 PM CDT) Analysis Performed At Patho logist Time Signature Treponema Negative NEG [facility] [place] [facility] Specimen Anatomical Collection Method Collection Time Receive d Time (Source) Location / / Volume Laterality 03/03/2009 2:15 PM 9 2:17 CDT PM CDT Dayna Kirby MD LABORATORY Performing Organization Address City/State/ZIP Code Phon e Number [address] LABS HIV 1 & 2, SCREEN (03/03/2009 2:15 PM CDT) Analysis Performed At Patho logist Time Signature HIV 1&2 Negative NEG [facility] Antibody [facility] LABS Specimen Anatomical Collection Method Collection Time Receive d Time (Source) Location / / Volume Laterality 03/03/2009 2:15 PM 9 2:17 CDT PM CDT Dayna Kirby MD LABORATORY Performing Organization Address City/State/ZIP Code Phon e Number [address] LABS RUBELLA AB IGG (03/03/2009 2:15 PM CDT) P athologist Signature Rubella JIAN 27 IU/mL [facility] IgG CAMPUS LABS Comment: Interpretation: Positive, Immun e Specimen Anatomical Collection Method Collection Time Receive d Time (Source) Location / / Volume Laterality 03/03/2009 2:15 PM 9 2:17 CDT PM CDT Dayna Kirby MD LABORATORY Performing Organization Address City/State/ZIP Code Phon e Number [facility] [address] LABS HEP B SURFACE ANTIGEN (03/03/2009 2:15 PM CDT) Analysis Performed At Patho logist Time Signature Hep B Surface Negative NEG [facility] LABS Specimen Anatomical Collection Method Collection Time Receive d Time (Source) Location / / Volume Laterality 03/03/2009 2:15 PM 9 2:17 CDT PM CDT Dayna Kirby MD LABORATORY Performing Organization Address City/State/ZIP Code Phon e Number [address] [place] [address] [facility] LABS HPV SCRN W/RFLX TO GENOTYPE (03/03/2009 12:00 AM CDT) Component Value Ref Test Analysis Performed At [facility] Range Method Time Signature Copath Report Patient Name: GEORGE DAVILA MR#: [id number] Specimen #: [id number] Collected: 03/03/2009 00:00 Received: 03/10/2009 12:01 Reported: 03/13/2009 15:53 Ordering Phy(s): DAYNA KIRBY TEST(S) REQUESTED: A: Human Papillomavirus Screen Analysis B: Human Papillomavirus Molecular Genotyping Electrophoresis Analysis SPECIMEN DESCRIPTION: Cervical Cells CLINICAL COMMENTS: Patient with a diagnosis of ASC-US ICD-9:795.01 METHODOLOGY: ??Total cellular DNA was extracted from the abo ve specimen and up to 1 ug subjected to DNA amplification with a series of oligonucleotide primers directed to the L1 region of the hum an papillomavirus genome. ??The resulting PCR fragments were th en by capillary electrophoresis using a [employer] with iPosi software. ??The PCR products from samples positive for HPV D NA were then digested with a series of restriction endonuclease enzymes. ??The resulting pattern of bands corresponding to the digested DNA products were interpreted according to the corresponding HPV DNA cont rols. Amplification of a segment of the beta globin gene serves as an internal control of DNA amplification. RESULTS: HPV DNA (L1 region) ? 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 COMMENTS: HPV type 31 and 52 are associated with high risk of dysplasi a and or malignancy. The combined risk of these two viral infections should be regarded as high. Close clinical follow-up is recommended. Guidelines referenced to assign HPV carcinogenicity are [Dhruv stanford (2003) New Engl J Med 348(0) 511-527], [Prabhjot (2007) Am J Obstet G ynecol Aug 2007;346-355] and [Benito (2005) Lancet Oncol; February 2005; 6:204]. High risk types: 16, 18, 31, 33, 35, 39, 45, 51, 52, 56, 58, 59, 66, 68, 73, 82. This test was developed and its performance determined by chris blood [facility] [place] ??Molecular Diagnostic Laboratory. ?? It has not been cleared or approved by the U.S. Food and Drug Administr ation. ??The FDA has determined that such clearance or approval is not ne cessary. Pursuant to the requirements of CLIA' 88, this laboratory adhikari s established and verified the test' s accuracy and precision. ??This test is used for clinical purposes. Electronically Signed Out By: Cristian Barone MD, Physicians TESTING LAB LOCATION: [place] [id number] [facility] [address] [place] [id number] COLLECTION SITE: Client: ?? [facility] Location: ??[facility] (K) Specimen (Source) Anatomical Collection Method Collection Time Re ceived Time Location / / Volume Laterality 03/03/2009 03/10/2009 12:0 1 PM CDT Dayna Kirby MD LABORATORY Performing Organization Address City/State/ZIP Code Phon e Number [place] (ABNORMAL) A THIN LAYER PAP SCREEN [[id number]] (03/03/2009 12:00 AM CDT) Component Value Ref Test Analysis Performed At [facility] Range Method Time Signature PAP ASC-US (A) COPATH Copath Report COPATH Patient Name: GEORGE DAVILA MR#: [id number] Specimen #: [id number] Collected: 03/03/2009 Received: 03/04/2009 Reported: 03/07/2009 17:19 Ordering Phy(s): DAYNA KIRBY SPECIMEN/STAIN PROCESS: Pap thin layer prep screening (SurePath) ? Pap-Cyto x 1, Reflex HPV x 1 SOURCE: Cervical, endocervical ---- Pap thin layer prep screening (SurePath) SPECIMEN ADEQUACY: Satisfactory for evaluation. -Transformation zone component absent. CYTOLOGIC INTERPRETATION: Epithelial Cell Abnormality: ??Squamous Cell: ??Atypical squ amous cells-of undetermined significance (ASC-US). ? Organism(s): -Fungal organisms morphologically consistent with Karla sp p. RECOMMENDATIONS: Comment: Molecular testing for HPV has been ordered for this specimen. Electronically signed out by: Shaneka Farfan M.D. Processed and screened at [facility] CLINICAL HISTORY: , Previous normal pap Date of Last Pap: 05/28/05, TESTING LAB LOCATION: [facility] [address] [place], [place] [address] [place] Phone: ??[phone] COLLECTION SITE: Client: ?? [facility] Location: [facility] (K) Specimen (Source) Anatomical Collection Method Collection Time Re ceived Time Location / / Volume Laterality 03/03/2009 03/04/2009 2:58 PM CDT Dayna Kirby MD LABORATORY Performing Organization Address City/State/ZIP Code Phon e Number [place] documented in this encounter Visit Diagnoses Diagnosis Supervision of normal first - Primary Vaginitis Vaginitis and vulvovaginitis, unspecifie d documented in this encounter Care Teams Stoker Mechanic Relationship Specialty Start Date End Date Dayna Kirby MD PCP - General 12/01/05 07/25/10 documented as of this encounter
--- OUTSIDE RECORDS SUMMARY | 2022-08-31 22:28 | XMS_ITS | Encounter Summary ---
:1990 Author Organization [place] Address [address] [place] [address] Care Team Providers Name Role Phone Jazmin Quiros MD Primary Care Provider [phone] Reason for Visit Reason Onset Date Comments Results 12/01/2005 Does pt. need to com e in for appt for results of test? Encounter Details Date Type Department Care Team Description 12/01/2005 Telephone [facility] Caprice Aguilar Results (Does pt. need BRETT Payne MD to come in for appt [address] for results of test?) [place], [place] [address] (Wo rk) Social History [...] on filedocumented in this encounter Care Teams Silver Lap Machine Tender Relationship Specialty Start Date End Date Jazmin Quiros MD PCP - General 12/01/05 07/25/10 documented as of this encounter
--- OUTSIDE RECORDS SUMMARY | 2022-08-31 22:28 | XMS_ITS | Encounter Summary ---
:1990 Author Organization [place] Address [address] [place] [address] Care Team Providers Name Role Phone Jazmin Quiros MD Primary Care Provider [phone] Encounter Details Date Type Department Care Team Description 04/13/2010 [facility] Reuben , Lex Yusuf MD [facility] [address] [place] [address] (Wo rk) Social History Tobacco Use Types [...] on filedocumented in this encounter Care Teams Manager Wound Relationship Specialty Start Date End Date Jazmin Quiros MD PCP - General 12/01/05 07/25/10 documented as of this encounter
--- OUTSIDE RECORDS SUMMARY | 2022-08-31 22:28 | XMS_ITS | Encounter Summary ---
:1990 Author Organization [place] Address [address] [place] [address] Care Team Providers Name Role Phone Jazmin Quiros MD Primary Care Provider [phone] Encounter Details Date Type Department Care Team Description 04/13/2010 Hospital Laboratory [facility] Lex Alexis MD [facility] [address] [place] [address] (Wo rk) Social History Tobacco Use Types [...] Diagnosis Comme nts HCL HCG URINE QUAL STAT 04/13/2010 7:21 AM Res ults for this CDT procedure are i n the results section. documented in this encounter Results Hospital - HCG QUAL URINE (04/13/2010 7:21 AM CDT) [facility] Method Time Signature HCG Qual Negative NEG [facility] Urine This test provides a presum ptive diagnosis of or non-. A LAKES confirmed diagnosis should only be made by a ph ysician after all REGIONAL clinical and laboratory findings have been evaluated. HOSPITAL LAB Specimen Anatomical Collection Method Collection Time Receive d Time (Source) Location / / Volume Laterality 04/13/2010 7:21 AM 0 7:31 CDT AM CDT Lex Alexis MD LABORATORY Performing Organization Address City/State/ZIP Code Phon e Number [facility] [address] [place], [place] [address] [facility] documented in this encounter Visit Diagnoses Not on filedocumented in this encounter Care Teams Chief Engineer Relationship Specialty Start Date End Date Jazmin Quiros MD PCP - General 12/01/05 07/25/10 documented as of this encounter
--- OUTSIDE RECORDS SUMMARY | 2022-08-31 22:28 | XMS_ITS | Encounter Summary ---
:1990 Author Organization [place] Address [address] [place] [address] Care Team Providers Name Role Phone Jazmin Quiros MD Primary Care Provider [phone] Encounter Details Date Type Department Care Team Description 04/13/2010 Operative Report HOSP RESULTS Jaiden Angel (Simulation Technician) MD Paramjit [facility] [address] [address] (Wo rk) Social History Tobacco Use Types Packs/Day Years Used Date Smoking Tobacco: Every Day Cigarettes 0.1 Comments: 2-3 a day, cutting down 04-27-09 Alcohol Use Standard Drinks/Week Comments No 0 (1 standard drink = 0.6 oz pure alcoho l) Sex Assigned at Date Recorded Not on file documented as of this encounter Progress Notes Jaiden Alexis W - 04/15/2010 8:49 PM CDT FINAL PREOPERATIVE DIAGNOSES: Chronic pelvic pain. POSTOPERATIVE DIAGNOSIS: Mild pelvic endometriosis. PROCEDURE: Laparoscopy with fulguration of endometriosis. SURGEON: Jaiden Alexis MD ANESTHETIC AGENT: General. DESCRIPTION OF OPERATION: George Davila was placed in the boot-stirrup position with legs slightly above horizontal after the induction of adequate general anesthesia. The abdomen and perineum were prepped and draped for laparoscopy in the routine manner with a Toney catheter draining the urinary bl adder and Murguia cannula attached to the cervix. An infraumbilical incision was made through the skinand Veress needle was inserted intraperitoneally. The abdomen was insufflated with approximately 3 liters of carbon dioxide. The 5-mm trocar and sleeve were inserted with one thrust without difficulty.Insertion was confirmed by visualization through the laparoscope on the video screen. A suprapubic site was selected and a stab incision was made. A 5-mm port was placed suprapubically. The patient wasplaced in Trendelenburg and the pelvis was visualized. The uterus, tubes and ovaries were normal bilaterally. The bladder peritoneum appeared normal. The sidewalls were normal. In the cul-de-sac, slight ly to the left of the midline there were several implants of endometriosis and there was also an implant on the left part of the cul-de-sac just lateral to the uterosacral ligament. These areas were fulgurated. The appendix was normal and the liver was normal in color and smooth and the gallbladder appeared normal. The gas was then allowed to escape from the abdomen and the instruments were removed. The incisions were closed with interrupted sutures of 4-0 plain gut. The cannula and Toney catheter were removed. The patient tolerated the operation well. Estimated blood loss was 5 cc. Sponge and needle counts were correct. She was returned to the recovery room in good condition. Electronically signed on 04/15/2010 20:49 by JAIDEN ALEXIS MD MT: [id number] Name: GEORGE DAVILA MRN: [id number] Account: [id number] : 1990 Procedure Date: 04/13/2010 Document: [id number] documented in this encounter Plan of Treatment Not on filedocumented as of this encounter Visit Diagnoses Not on filedocumented in this encounter Care Teams Shuttle Route Vehicle Operator Relationship Specialty Start Date End Date Jazmin Quiros MD PCP - General 12/01/05 07/25/10 documented as of this encounter
--- OUTSIDE RECORDS SUMMARY | 2022-08-31 22:28 | XMS_ITS | Encounter Summary ---
:1990 Author Organization [place] Address [address] [place] [address] Care Team Providers Name Role Phone Jazmin Quiros MD Primary Care Provider [phone] Primary Barbi Matamoros MD Primary Care Provider Unavailable No Ref-Primary, Physician Primary Care Provider [phone] Holland Thomas MD Primary Care Provider [phone] Amarilys Friedman SPINNER FRAME Unavailable Encounter Details Date Type Department Care Team Description 10/15/2009 [facility] Jazmin Quiros MD [facility] [place] [address] (Wo rk) Social History Tobacco Use Types [...] on filedocumented in this encounter Care Teams Livestock Laborer Relationship Specialty Start Date End Date Jazmin Quiros MD PCP - General 12/01/05 07/25/10 Primary Barbi Matamoros MD PCP - General 02/16/1207/26 No Ref-Primary, Physician PCP - General 07/27/15 04/14/20 Holland Thomas MD PCP - General speech correction assistant 04/15/20 [address] [id number] Amarilys Friedman, KACI Assigned PCP 06/05/21 [address] [facility] [place] [address] documented as of this encounter
--- OUTSIDE RECORDS SUMMARY | 2022-08-31 22:28 | XMS_ITS | Encounter Summary ---
:1990 Author Organization [place] Address [address] [place] [address] Care Team Providers Name Role Phone Jazmin Quiros MD Primary Care Provider [phone] Encounter Details Date Type Department Care Team Description 02/20/2009 Orders Only [facility] Xray Supe rvision of Normal First Social History Tobacco Use Types Packs/Day Years [...] Procedure Name Priority Date/Time Associated Diagnosis Comme [facility] US OB 1ST Routine 02/20/2009 11:26 AM Supervision of Result s for this TRIMESTER CDT normal first procedure are i n MAT/, SINGLE the result s GESTATION section. documented in this encounter Results US, PREG UTER, REAL TIME W/IMAGE DOCUMENT, & MATERNAL, 1ST TRIMEST, TRANSABDOM; SINGL/1ST GEST (02/20/2009 11:26 AM CDT) Anatomical Region Laterality Modality Other Specimen (Source) Anatomical Collection Method Collection Time Re ceived Time Location / / Volume Laterality 02/20/2009 11:26 AM CDT Impressions 02/20/2009 11:31 AM CDT US OB ??1 TRIMESTER W/TRANSVAG Feb 20 11:26:00 AM HISTORY: Dates. TECHNIQUE: Transabdominal images of the pelvis are supplemented with endovaginal images to better define roosevelt og. COMPARISON: None. FINDINGS: There is a single live intraut erine of approximately 6 weeks and 2 days gestati on. The EDC based on this ultrasound is 10/14/09. heart rate is 115 beats per minute. The left ovary contains a 2.1 cm complex cys t. This complexity consists of a few septations. There is a more simple appearing cyst in the left ovary that measures 2.0 cm. Finally, the re is 1.4 cm complex area in the left ovary which may relate to a col lapsed/hemorrhagic dominant follicle. IMPRESSION: Early single live intrauteri ne or approximately 6 weeks and 2 days gestation. Jazmin Quiros MD SPECIAL IMAGING STUDIES documented in this encounter Visit Diagnoses Diagnosis Supervision of normal first documented in this encounter Care Teams Baking Powder Mixer Relationship Specialty Start Date End Date Jazmin Quiros MD PCP - General 12/01/05 07/25/10 documented as of this encounter
--- OUTSIDE RECORDS SUMMARY | 2022-08-31 22:29 | XMS_ITS | Encounter Summary ---
:1990 Author Organization [place] Address [address] [place] [address] Care Team Providers Name Role Phone Jazmin Quiros MD Primary Care Provider [phone] Encounter Details Date Type Department Care Team Description 12/04/2004 Historic Results [facility] Paramjit Lee [facility] Hospitalists Social History Tobacco Use Types Packs/Day Years Used Date Smoking Tobacco: Never Assessed Sex Assigned at Date Recorded Not on file documented as of this encounter Plan of Treatment Not on filedocumented as of this encounter Procedures Procedure Name Priority Date/Time Associated Comments Diagnosis HEMOGRAM DIFFERENTIAL Routine 12/04/2004 9:20 AM Results for this AND PLATELET COLOR BUFFER procedure are i n the results section. TSH Routine 12/04/2004 9:20 AM Results f or this COLOR BUFFER procedure are i n the results section. THYROXINE TOTAL Routine 12/04/2004 9:20 AM Result s for this COLOR BUFFER procedure are i n the results section. PLATELET COUNT Routine 12/04/2004 9:20 AM Results for this COLOR BUFFER procedure are i n the results section. COMPREHENSIVE Routine 12/04/2004 9:20 AM Results for this METABOLIC PANEL COLOR BUFFER procedure ar e in the results section. documented in this encounter Results (ABNORMAL) Comprehensive metabolic panel (12/04/2004 9:20 AM COLOR BUFFER) Analysis Performed At Patho logist Time Signature Sodium 141 133 - 144 MISYS mmol/L Potassium 4.0 3.4 - 5.3 MISYS mmol/L Chloride 106 96 - 110 [facility] mmol/L Carbon Dioxide 26 20 - 32 [facility] mmol/L Glucose 119 (H) 60 - 110 M[facility]YS mg/dL Urea Nitrogen 11 5 - 24 M[facility]YS mg/dL Creatinine 0.72 0.60 - MISYS 1.20 mg/dL GFR Estimate >80 >60 [facility] mL/min/1.7 m2 GFR Estimate If >80 >60 [facility] Black mL/min/1.7 m2 Calcium 9.4 8.7 - 10.8 MISYS mg/dL AST 18 0 - 35 U/L M[facility] Protein Total 7.5 6.0 - 8.2 MISYS g/dL Anion Gap 9 6 - 17 [facility] mmol/L Albumin 4.2 3.3 - 4.6 [facility] g/dL ALT 15 0 - 50 U/L M[facility] Alkaline 56 40 - 150 [facility] Phosphatase U/L Bilirubin Total 0.4 0.2 - 1.3 [facility] mg/dL Specimen Anatomical Collection Method Collection Time Receive d Time (Source) Location / / Volume Laterality 12/04/2004 9:20 AM 5 5:36 COLOR BUFFER AM COLOR BUFFER Paramjit Lee DO LAB - BLOOD ORDERABLES Performing Organization Address City/State/ZIP Code Phon e Number MISYS Hemogram differential and platelet (12/04/2004 9:20 AM COLOR BUFFER) [facility] gist Method Time Signature MCV 87 77 - 100 [facility] fl MCH 29.9 26.5 - [facility] 33.0 pg MCHC 34.3 32.0 - [facility] 36.0 g/dL RDW 13.8 10.0 - [facility] 15.0 % WBC 5.2 4.0 - [facility] 11.0 10e9/L RBC Count 4.39 3.7 - 5.3 [facility] 10e12/L Hemoglobin 13.1 11.7 - MISYS 15.7 g/dL Hematocrit 38.4 35.0 - MISYS 47.0 % % Neutrophils 54 32 - 64 % MISYS % Lymphocytes 37 26 - 50 % MISYS % Monocytes 7 0 - 12 % MISYS % Eosinophils 1 0 - 6 % MISYS % Basophils 1 0 - 2 % [facility] Absolute 2.8 1.3 - 7.0 [facility] Neutrophil 10e9/L Absolute 1.9 1.0 - 5.8 [facility] Lymphocytes 10e9/L Absolute 0.4 0.0 - 1.3 [facility] Monocytes 10e9/L Absolute 0.0 0.0 - 0.7 [facility] Eosinophils 10e9/L Absolute 0.0 0.0 - 0.2 [facility] Basophils 10e9/L Diff Method Automated [facility] Method Specimen Anatomical Collection Method Collection Time Receive d Time (Source) Location / / Volume Laterality 12/04/2004 9:20 AM 5 5:36 COLOR BUFFER AM COLOR BUFFER Paramjit Lee DO LAB - BLOOD ORDERABLES Performing Organization Address City/[facility]/ZIP Code Phon e Number MISYS Thyroxine total (12/04/2004 9:20 AM COLOR BUFFER) P athologist Signature T4 Total 6.8 5.0 - 11.0 [facility] ug/dL Specimen Anatomical Collection Method Collection Time Receive d Time (Source) Location / / Volume Laterality 12/04/2004 9:20 AM 5 5:36 COLOR BUFFER AM COLOR BUFFER Paramjit Lee DO LAB - BLOOD ORDERABLES Performing Organization Address City/[facility]/ZIP Code Phon e Number MISYS TSH (12/04/2004 9:20 AM COLOR BUFFER) athologist Signature TSH 3.05 0.4 - 5.0 [facility] mU/L Specimen Anatomical Collection Method Collection Time Receive d Time (Source) Location / / Volume Laterality 12/04/2004 9:20 AM 5 5:36 COLOR BUFFER AM COLOR BUFFER Paramjit Lee DO LAB - BLOOD ORDERABLES Performing Organization Address City/[facility]/ZIP Code Phon e Number MISYS Platelet count (12/04/2004 9:20 AM COLOR BUFFER) athologist Signature Platelet Count 217 150 - 450 MISYS 10e9/L Specimen Anatomical Collection Method Collection Time Receive d Time (Source) Location / / Volume Laterality 12/04/2004 9:20 AM 5 COLOR BUFFER 10:17 AM COLOR BUFFER Paramjit Lee DO LAB - BLOOD ORDERABLES Performing Organization Address City/State/ZIP Code Phon e Number MISYS documented in this encounter Visit Diagnoses Not on filedocumented in this encounter Care Teams Washer Engineer Relationship Specialty Start Date End Date Jazmin Quiros MD PCP - General 12/01/05 07/25/10 documented as of this encounter
--- OUTSIDE RECORDS SUMMARY | 2022-08-31 22:29 | XMS_ITS | Encounter Summary ---
:1990 Author Organization [place] Address [facility] [place] [address] Care Team Providers Name Role Phone Unavailable Primary Care Provider Unavailable Encounter Details Date Type Department Care Team Description 12/04/2004 Consultation Andrew Roy MD [address] [place] [address] (Wo rk) Social History Tobacco Use Types Packs/Day Years Used Date Smoking Tobacco: Never Assessed Sex Assigned at Date Recorded Not on file documented as of this encounter Consult Notes Andrew Roy - 12/04/2004 12:00 AM WAREHOUSE ANALYST HISTORY OF PRESENT ILLNESS: The patient is a 14-year-old female admitted to the adolescent psychiatry unit for evaluation of depression and thoughts of self-harm. She denies any acute medical problems. PAST MEDICAL HISTORY/HABITS: She is a nonsmoker and nondrinker. ALLERGIES: None. MEDICATIONS: None. PRIOR HOSPITALIZATIONS: None. CHRONIC DISEASE/MAJOR ILLNESSES: No chronic ailments. REVIEW OF SYSTEMS: She has occasional headaches once or twice a week. She has frontal pressure sensation relieved with Tylenol. She occasionally has momentary episodes of blurred vision and occasional neck pain related to stress. She has occasional shortness of breath related to anxiety. No coughing or chest pain. No abdominal pain. She has regular periods. She is currently menstruating. She has never been sexually active. FAMILY AND SOCIAL HISTORY: She is in the 10th grade. Her parents are alive and well. Two siblings are alive and well. PHYSICAL EXAMINATION: VITAL SIGNS: Normal. HEENT: Negative. NECK: Normal. Thyroid not enlarged. LUNGS: Clear. CARDIOVASCULAR: Regular rhythm, without murmurs or gallops. ABDOMEN: Benign. LYMPHATICS: Negative. EXTREMITIES: No edema or inflammation. NEUROLOGIC: Cranial nerves are intact. Motor exam shows symmetric strength. Cerebellar exam is normal. Fundi are benign. ASSESSMENT: 1. Depression with anxiety. 2. Muscle contraction headaches likely related to stress. No evidence of underlying neurologic impairment. 3. Anxiety attacks with secondary shortness of breath. No evidence of cardiopulmonary compromise. PLAN: No medical intervention indicated. I will be happy to see her during her stay for any intercurrent medical issues. ANDREW ROY MD Dictated by: ANDREW ROY MD MT: [facility] Document: [id number] LCN: [id number] DSC: [place], [place] Name: MR#: : Consult Date: GEORGE DAVILA -56 1990 12/04/2004 CONSULTATION Page 2 of 2 HOUSE ANALYST documented in this encounter Plan of Treatment Not on filedocumented as of this encounter Visit Diagnoses Not on filedocumented in this encounter
--- OUTSIDE RECORDS SUMMARY | 2022-08-31 22:29 | XMS_ITS | Encounter Summary ---
:1990 Author Organization [place] Address [address] [place] [address] Care Team Providers Name Role Phone Jazmin Quiros MD Primary Care Provider [phone] Primary Barib Matamoros MD Primary Care Provider Unavailable No Ref-Primary, Physician Primary Care Provider [phone] Holland Thomas MD Primary Care Provider [phone] Amarilys Friedman EMERGENCY ROOM PHYSICIAN ASSISTANT Unavailable Encounter Details Date Type Department Care Team Description 06/24/2005 Abstract [facility] Jazmin Quiros MD [address] [place] [address] (Wo rk) Social History Tobacco Use Types Packs/Day Years Used Date Smoking Tobacco: Never Assessed Sex Assigned at Date Recorded Not on file documented as of this encounter Plan of Treatment Not on filedocumented as of this encounter Visit Diagnoses Not on filedocumented in this encounter Care Teams Blocklayer Relationship Specialty Start Date End Date Jazmin Quiros MD PCP - General 12/01/05 07/25/10 Primary Barbi Matamoros MD PCP - General 02/16/1207/26 No Ref-Primary, Physician PCP - General 07/27/15 04/14/20 Holland Thomas MD PCP - General computer installation engineer [facility] [address] [id number] Amarilys Friedman, EMERGENCY ROOM PHYSICIAN ASSISTANT Assigned PCP 06/05/21 [address] [place] [address] documented as of this encounter
--- OUTSIDE RECORDS SUMMARY | 2022-08-31 22:29 | XMS_ITS | Encounter Summary ---
:1990 Author Organization [place] Address [address] [place] [address] Care Team Providers Name Role Phone Unavailable Primary Care Provider Unavailable Encounter Details Date Type Department Care Team Description 03/30/2005 Results Only Dale Gardner MD [address] [address] (Wo rk) Social History Tobacco Use Types Packs/Day Years Used Date Smoking Tobacco: Never Assessed Sex Assigned at Date Recorded Not on file documented as of this encounter Plan of Treatment Not on filedocumented as of this encounter Procedures Procedure Name Priority Date/Time Associated Diagnosis Comme [facility] X-RAY KNEE Routine 03/30/2005 1:46 PM Results for this COMPLETE >=4 VIEWS CDT procedure are in the results section. documented in this encounter Results X-RAY KNEE 4+ VIEW (03/30/2005 1:46 PM CDT) Anatomical Region Laterality Modality Other Specimen (Source) Anatomical Collection Method Collection Time Re ceived Time Location / / Volume Laterality 03/30/2005 1:46 PM CDT Impressions 04/01/2005 8:00 AM CDT MOS # ??[id number] ?? THREE VIEW SERIES OF THE RIGHT KNEE: ?? AP, notch view, and Merchant views noted . ??The patient is status post a recent right patellar dislocation. ??X -ray analysis today continues to show both patellae in a lateral sublu xation-type position with little further widening of the medial fa cet spacing on the right as compared to the left, either consistent with potential continued lateral translation and/or effusion in t he joint forcing this picture. ? SUMMARY: ??As above. Dale Gardner MD GENERAL IMAGING documented in this encounter Visit Diagnoses Not on filedocumented in this encounter
--- OUTSIDE RECORDS SUMMARY | 2022-08-31 22:29 | XMS_ITS | Encounter Summary ---
:1990 Author Organization [place] Address [facility] [place] [address] Care Team Providers Name Role Phone Unavailable Primary Care Provider Unavailable Encounter Details Date Type Department Care Team Description 02/12/2005 Results [facility] [place] [id number] [place] [address] Social History Tobacco Use Types Packs/Day Years Used Date Smoking Tobacco: Never Assessed Sex Assigned at Date Recorded Not on file documented as of this encounter Plan of Treatment Not on filedocumented as of this encounter Procedures Procedure Name Priority Date/Time Associated Diagnosis Comme nts HC X-RAY KNEE 3 Routine 02/12/2005 6:04 PM Result s for this VIEWS PROOF PASSER procedure are i n the results section. HC X-RAY KNEE 3 Routine 02/12/2005 6:04 PM Result s for this VIEWS PROOF PASSER procedure are i n the results section. documented in this encounter Results X-RAY KNEE 3 VIEW (02/12/2005 6:04 PM PROOF PASSER) Anatomical Region Laterality Modality Other Specimen (Source) Anatomical Collection Method Collection Time Re ceived Time Location / / Volume Laterality 02/12/2005 6:04 PM PROOF PASSER Impressions 02/15/2005 10:05 AM PROOF PASSER RIGHT KNEE - THREE VIEWS: ??02/12/05 HISTORY: ??Swelling. ??Trauma/fall. Lateral radiograph demonstrates a joint effusion. ??The joints spaces are well preserved and no fractur e line is visible. IMPRESSION: ??Joint effusion. Dar Pearl MD GENERAL IMAGING X-RAY KNEE 3 VIEW (02/12/2005 6:04 PM PROOF PASSER) [facility] Method Time Signature Radiology RADIOLOGY Result RIGHT KNEE - THREE VIEWS: 02/12/05 RESULTS HISTORY: Swelling. Trauma/fall. Lateral radiograph demonstrates a joint effusion. The joints spaces are well preserved and no fracture line is visible. IMPRESSION: Joint effusion. Anatomical Region Laterality Modality Other Specimen (Source) Anatomical Collection Method Collection Time Re ceived Time Location / / Volume Laterality 02/12/2005 6:04 PM PROOF PASSER Dar Pearl MD GENERAL IMAGING documented in this encounter Visit Diagnoses Not on filedocumented in this encounter
--- OUTSIDE RECORDS SUMMARY | 2022-08-31 22:29 | XMS_ITS | Encounter Summary ---
:1990 Author Organization [place] Address [facility] [place] [address] Care Team Providers Name Role Phone Unavailable Primary Care Provider Unavailable Encounter Details Date Type Department Care Team Description 02/16/2005 Results Only [facility] [place] [address] Social History Tobacco Use Types Packs/Day Years Used Date Smoking Tobacco: Never Assessed Sex Assigned at Date Recorded Not on file documented as of this encounter Plan of Treatment Not on filedocumented as of this encounter Procedures Procedure Name Priority Date/Time Associated Diagnosis Comme [facility] MRI LOWER Routine 02/16/2005 3:11 PM Results f or this EXTREMITY JNT W/O RODEO RIDER procedure are in CONT the results section. documented in this encounter Results MRI JOINT LEG (02/16/2005 3:11 PM RODEO RIDER) Anatomical Region Laterality Modality Other Specimen (Source) Anatomical Collection Method Collection Time Re ceived Time Location / / Volume Laterality 02/16/2005 3:11 PM RODEO RIDER Impressions 02/17/2005 2:22 PM RODEO RIDER RIGHT KNEE MRI: ?? HISTORY: ??Knee pain. ?? TECHNIQUE: Axial and coronal T2 fat sat. ??Coronal T1 and sagittal T2. ? FINDINGS: ? Menisci: ??No tear identified. ? Cruciate Ligaments: ??Intact. ?? Collateral Ligaments: ??Intact. ?? Patellofemoral, Osseous and Cartilaginou s Structures: ??There are contusions at the anterolateral aspect o f the lateral femoral condyle and medial aspect of the patella. ??Ther e is tearing/strain at the patellar insertion of the medial patella r retinaculum. ??These findings are consistent with recent late ral patellar dislocation. ?? There is some mild lateral patellar subl uxation on the current exam. ?? Additional Findings: ??Prominent effusio n. ??There is some nonspecific soft tissue edema around the knee, likel y related to the recent injury. ??There is a small Hilario's cyst. ? CONCLUSION: ??CHANGES OF RECENT LATERAL PATELLAR DISLOCATION. ??EFFUSION. Dar Pearl MD SPECIAL IMAGING STUDIES documented in this encounter Visit Diagnoses Not on filedocumented in this encounter
--- OUTSIDE RECORDS SUMMARY | 2022-08-31 22:29 | XMS_ITS | Encounter Summary ---
:1990 Author Organization [place] Address [facility] [place] [address] Care Team Providers Name Role Phone Unavailable Primary Care Provider Unavailable Encounter Details Date Type Department Care Team Description 12/04/2004 Discharge Summary Paramjit Lee DO (City Engineer) Social History Tobacco Use Types Packs/Day Years Used Date Smoking Tobacco: Never Assessed Sex Assigned at Date Recorded Not on file documented as of this encounter Discharge Summaries Paramjit Lee - 12/08/2004 12:00 AM LAND MOBILE RADIO TECHNICIAN REASON FOR ADMISSION: George is a 13-year-old female who started cutting on herself about 3 years ago to relieve stress and tension. She has only cut once as a suicide attempt. The most recent cuts were on her left upper forearm, and were superficial and showed no signs of infection. When she was at the family meal, her step-mother noted the cuts, mentioned it to her step-brother who then mentioned it to father. When her father addressed the concern with George, she was very upset and overwhelmed, and could not really talk to him or answer his questions. She went to her bedroom and sat in a corner and continued to feel overwhelmed, not able to respond to her father's questions. The father then consulted with the step-mother who has worked in crisis units and detox units, who suggested she come to the hospital. She saw a therapist for about 6 sessions 3 years ago, but quit seeing her because she felt she never got any suggestions from the therapist. She denies any alcohol, marijuana or other drug use. SOCIAL AND FAMILY HISTORY: Please see admission summary for details. PHYSICAL STATUS: She was seen by Dr. Calle. She has muscle contraction headaches, likely related to stress. There is no evidence of underlying neurologic impairment. She has a history of anxiety attacks with shortness of breath, no evidence of cardiopulmonary compromise. LABORATORY DATA: Comprehensive metabolic profile was within normal limits. Thyrotropin was normal at 3.05. Total thyroxin was normal at 6.8. Urinalysis was within normal limits. CBC was normal. HOSPITAL COURSE: She was admitted to the Adolescent Mental Health Unit. She was alert and oriented to time, place and person. She had complaints of middle insomnia, and a mildly decreased appetite. Her panic attacks include lightheadedness, tachycardia, chest tightness, difficulty catching her breath, and feelings of impending doom. Her mood is somewhat depressed. Affect is slightly constricted. She denied hallucinations. There was no evidence of perceptual distortion. Attention and concentration appear to be adequate. The family assessment was completed by Andrea Macdonald, with the patient's father, step-mother, mother and her significant other. George presents as having inadequate coping skills to deal with the multiple stressors in her life, including the move, change to father's home, conflicts there, and .........family issues.Her concerns with her relationship with her father were evident in the family session. While he spoke of trying to work it out with her, but when he heard that she wants to live with her mother, he agreed, although indicated that he did not think it would successful. Her mother is willing to have her return to her home. Please refer to Sammy Macdonald's complete notes for further details. Following the family session, her affect was bright. She says that she is really happy that she gets to live with her mom. Her mood is stable. She denies suicidal ideation. She has had no self-injurious behavior here. She agrees to go to counseling. Her parents were given the number to the [facility] to contact for a therapy appointment, or certainly can contact their insurance company for a list of providers in their area as well. On the day of discharge, her affect remains bright. She is alert and oriented x4. She is sleeping and eating well. She has no physical complaints. Her mother will also need to enroll her in the school district where she resides. DISCHARGE DIAGNOSES: Commerce IGeneralized anxiety disorder with panic. Adjustment disorder. Commerce IIDeferred. Commerce IIIGood health. Commerce IVPsychosocial stressors: Family and academic strain. Commerce VGlobal Assessment of Functionin. PARAMJIT LEE DO Dictated by: PARAMJIT LEE DO MT: [facility] Document: [id number] [place], [place] LCN: [id number] DSC: 12/07/2004 Name: MR#: : Admit Date: DSC Date: GEORGE DAVILA [id number] 1990 12/04/2004 12/07/2004 DISCHARGE SUMMARY Page 3 of 2 MOBILE RADIO TECHNICIAN documented in this encounter Plan of Treatment Not on filedocumented as of this encounter Visit Diagnoses Not on filedocumented in this encounter
--- OUTSIDE RECORDS SUMMARY | 2022-08-31 22:29 | XMS_ITS | Encounter Summary ---
:1990 Author Organization [place] Address [address] [place] [address] Care Team Providers Name Role Phone Unavailable Primary Care Provider Unavailable Encounter Details Date Type Department Care Team Description 12/03/2004 Emergency room [facility] Dion Pham MD [facility] [place] [phone] (Wo rk) Social History Tobacco Use Types Packs/Day Years Used Date Smoking Tobacco: Never Assessed Sex Assigned at Date Recorded Not on file documented as of this encounter ED Notes Dion Pham - 12/04/2004 12:00 AM ELECTRICAL SYSTEMS DRAFTER PLEASE SEE THE ORIGINAL EMERGENCY MEDICAL RECORD FOR THE REVIEW OF SYSTEMS, PAST MEDICAL HISTORY, FAMILY HISTORY, AND SOCIAL HISTORY. IMPRESSION: 1. Self-injurious behavior. 2. Suicidal ideation. The patient has never been hospitalized. She has only seen a therapist once at this point. She is not plugged into the system; no medications. Family is concerned with her feeling of wanting to hurt herself now which is new. With increasing stressors and increasing cutting over the last 3 weeks I feel that certainly safety issues exist at this point. We will plan to admit her to 4B. They agree. CHIEF COMPLAINT: Cutting self. HISTORY OF PRESENT ILLNESS: The patient is a 14-year-old who presents with her father and I believe stepmother for evaluation. The patient apparently has a history over the last 3 years of cutting. Apparently over the last 3 weeks there have been increasing stressors at school, with family, and with life. She has been cutting with a knife on her upper arms and lower arms. She has been feeling more and more wanting to hurt herself and questionably being suicidal at this point. She is not feeling safe now and presents for evaluation with family. They note that she cuts herself to relieve stress but she has had increasing stress. Now that she states that she wants to hurt herself they are concerned about safety issues at this point. The patient denies any hallucinations. No homicidal thoughts otherwise. She has cut herself on the legs before, but primarily on the upper extremities. She lived with her mother who had a drug problem. Her father had been in senior living for several years, and has had custody of her for the last 6 years. The patient has difficulty coping and has been cutting to relieve stress. She saw a therapist once; nobody ongoing with this. The patient does not smoke or use drugs. No legal problems. MEDICATIONS: None. PAST MEDICAL HISTORY: Past medical history is otherwise negative. REVIEW OF SYSTEMS: No coughing, chest pain, or shortness of breath. No abdominal pain. No ingestions. No hallucinations. PHYSICAL EXAMINATION (I): VITAL SIGNS: Blood pressure 135/77. Pulse 77. Respirations 16. Temperature 97.1. Oxygen saturation 100% on room air. GENERAL: The patient is cooperative and sleeping here in the emergency department. She admits to feeling unsafe. HEENT: Negative. Neck supple; full range of motion. CARDIOVASCULAR: Regular rate and rhythm; no murmur, rub, or gallop. ABDOMEN: No guarding noted at all. EXTREMITIES: The patient had superficial linear lacerations over the upper left arm along with the forearm. They are superficial and do not require any suturing. Distal CMS is otherwise intact. EMERGENCY DEPARTMENT COURSE: I discussed the situation, etc. with the patient. She is not psychotic or delusional. She is not hypomanic or threatening here, but with the safety issue, etc. we plan to admit her as this seems to be fairly new. DION PHAM MD Dictated by: DION PHAM MD MT: mariela Document: [id number] LCN: [id number] DSC: 12/03/2004 [place], [place] Name: MR#: : GILMA: GEORGE DAVILA -58 1990 12/03/2004 EMERGENCY DEPARTMENT ENCOUNTER Page 2 of 2 TRICAL SYSTEMS DRAFTER documented in this encounter Plan of Treatment Not on filedocumented as of this encounter Visit Diagnoses Not on filedocumented in this encounter
--- OUTSIDE RECORDS SUMMARY | 2022-08-31 22:29 | XMS_ITS | Encounter Summary ---
:1990 Author Organization [facility] Address [facility] [place] [address] Care Team Providers Name Role Phone Jazmin Quiros MD Primary Care Provider [phone] Encounter Details Date Type Department Care Team Description 12/04/2004 Historic Computer Numerical Control Operator [facility] Rogerio Lee, [facility]- DO Hospitalists Social History Tobacco Use Types Packs/Day Years Used Date Smoking Tobacco: Never Assessed Sex Assigned at Date Recorded Not on file documented as of this encounter Progress Notes Paramjit Lee, - 10/27/2011 4:58 AM RETAIL ADVERTISING SALES MANAGER HISTORY OF PRESENT ILLNESS: George is a 13-year-old female who started cutting on herself approximately three years ago, to relieve stress, and tension. She says she only cut onetime as a suicide attempt. She showed me the scars on her arms and legs. Fortunately most of them are almost invisible. On her left upper forearm were the most recent cuts and they show no signs of infection. She states that when she was at supper yesterday with her family, her stepmother noted the cuts, mentioned it to her stepbrother, who then mentioned it to father. He addressed the concern with George and she says she just was so upset and overwhelmed she could not really talk to him, or answer his questions. She went to her bedroom and sat in the corner, which usually calms her, and father came into room, and continued to question her, and she essentially shutdown. She called her boyfriend who was able to calm her down. Father then consulted with her stepmother who has worked in crisis units and detoxification, who suggested she come to the hospital. She saw a therapist for about six sessions, three years ago, but quit seeing her because she felt she never got any suggestions from the therapist. She denies any alcohol or marijuana, or other drug abuse. She reports a history of anxiety attacks usually when she is feeling overwhelmed she will begin to hyperventilate, have tachycardia, get dizzy, have chest tightness, and feels like her chest is actually constricting, and she becomes shaky. On one occasion she actually fainted when she was with her boyfriend. SOCIAL HISTORY/FAMILY HISTORY: She is the younger of two children born to her mother. Her mother and 19-year-old sister live in [place], [place]. George lives with her father, paternal grandfather, stepmother, and stepbrother in [place], [place], where they moved about a year ago. She states that they moved because the grandfather felt he could not take care of himself and wanted to live with them, their house was not big enough, so they bought a bigger house in [place]. She states that the move was very hard for her because all of her friends and boyfriend live [place], as well as her mother and sister. Her parents when she was approximately age 1. She lived with her mother initially. When she was approximately age 6 or 7 she and her sister went to [place] to visit a paternal uncle and aunt, and while visiting they invited the girls to stay there, and her mother apparently approved and they lived there for about a year. While living there, she learned more about her biological father who was in long-term, and was near enough that she could visit him. She had been aware that her father was in long-term, but had never had any communication with him up until then. Her father got out of long-term a year later (after a total of 12 years) and asked if she wanted to live with him. She states that she had always wanted to get know her father, and mother agreed to the arrangement, so she moved in with him about four years ago. She continues to visit her mother and sister every other weekend during the school year and lives with them during the summer. She states that approximately a couple of years ago her father asked if she wanted him to get custody, and she agreed to it, but says that she did not really know what it meant, and she was afraid to hurt her father's feelings by saying no. She reports that she told her father approximately two and half years ago that she wanted to move back and live with mother, but once again he objected, and she did not pursue it. She says that she does not believe her mother has pursued because she can't afford an admitted attorneys and father has an admitted attorneys. She states that if she were allowed to go live with her mother, that the majority of her stress would be removed, and does not believe that she would be suicidal, or feel like cutting anymore. She is going to call and invite her mother to the family meeting this afternoon. She believes that her parents have shared legal custody and father has primary physical custody. It is interesting to note that she does not know why her father was in long-term for 12 years. Her mother mentioned something about a robbery, but she does not really know details. Whenever she has asked her father he is evasive and makes a comment about the fact that he told her a longtime ago why he was in long-term (but she doesn't recall that conversation.) She acknowledges that given the fact that her father was indeed in long-term for that long, she worries about whether or not it had anything to do with anger, and finds herself somewhat afraid of her father even though he has never abused her. She is a 10th grader and used to have Bs and now is getting Cs, Ds, and Fs. She states that her grades have dropped because of all the stress living with her father and living so far away from her mother, and sister. She has made some friends in [place], but misses her friends in [place]. Her boyfriend lives in [place] and is 17 years old. PHYSICAL STATUS: She has no physical complaints today. Please see the Foundry Superintendant notes for details. MENTAL STATUS EXAMINATION: See Dr. Lee's notes. PARAMJIT LEE DO Dictated by: PARAMJIT LEE DO MT: [facility] Document: [id number] CC: PARAMJIT LEE DO LCN: [id number] DSC: [place], [place] Name: MR#: : Admit Date: GEORGE DAVILA -58 1990 12/04/2004 ADMISSION NOTE Page 3 of 3 [place] ADVERTISING SALES MANAGER Paramjit Lee DO - 10/27/2011 4:57 AM RETAIL ADVERTISING SALES MANAGER IDENTIFYING INFORMATION: George is a 14-year-old female. She currently lives with father and stepmother. She sees her mother on a regular basis. She is in public school. MENTAL STATUS EVALUATION: George is a 14-year-old female who appears her stated age. She is dressed casually and is adequately groomed. She is alert and oriented to time, place, and person. She complains of middle insomnia, appetite mildly decreased. She complains of increasing panic attacks, including lightheadedness, tachycardia, chest tightness, difficulty catching her breath, feelings of impending doom. Mood is somewhat depressed. Affect is slightly constricted. She denies hallucinations. There is no evidence of perceptual distortion. Attention and concentration appear to be adequate. PROVISIONAL DIAGNOSIS: AXIS IGeneralized anxiety disorder. Rule out panic disorder, adjustment disorder. Rule out mood disorder. AXIS IIDeferred. AXIS IIIRefer to physical exam. AXIS IVPsychosocial stressors, family and academic strain. AXIS VCurrent GAF of 40. RECOMMENDATION: 1. Obtain a history and physical, psychiatric, psychological, and family assessment. 2. Review assessments and make recommendations for appropriate modalities of treatment. PARAMJIT LEE DO Dictated by: PARAMJIT LEE DO MT: ts Document: [id number] CC: PARAMJIT LEE DO LCN: [id number] DSC: [place], [place] Name: MR#: : Admit Date: GEORGE DAVILA [id number] 1990 12/04/2004 ADMISSION NOTE Page 2 of 2 [place] ADVERTISING SALES MANAGER documented in this encounter Plan of Treatment Not on filedocumented as of this encounter Visit Diagnoses Not on filedocumented in this encounter Care Teams Mounter Flutes And Piccolos Relationship Specialty Start Date End Date Jazmin Quiros MD PCP - General 12/01/05 07/25/10 documented as of this encounter
--- OUTSIDE RECORDS SUMMARY | 2022-08-31 22:29 | XMS_ITS | Encounter Summary ---
:1990 Author Organization [facility] Address [address] [place] [address] Care Team Providers Name Role Phone Jazmin Quiros MD Primary Care Provider [phone] Encounter Details Date Type Department Care Team Description 12/05/2004 Historic Results INTERFACED REPORT Donna Mccormick M D [address] [address] [facility] [place] [place] [address] (Wo rk) Social History Tobacco Use Types Packs/Day Years Used Date Smoking Tobacco: Never Assessed Sex Assigned at Date Recorded Not on file documented as of this encounter Plan of Treatment Not on filedocumented as of this encounter Procedures Procedure Name Priority Date/Time Associated Comments Diagnosis UA MACROSCOPIC WITH Routine 12/05/2004 7:02 PM Re sults for this REFLEX TO MICRO JEWEL HOLE DRILLER procedure ar e in the results section. URINE MICROSCOPIC Routine 12/05/2004 7:02 PM Resu lts for this EXAM JEWEL HOLE DRILLER procedure are i n the results section. documented in this encounter Results (ABNORMAL) UA macroscopic with reflex to micro (12/05/2004 7:02 PM JEWEL HOLE DRILLER) [facility] Method Time Signature Source Midstream MISYS Urine Color Urine Yellow MISYS Appearance Urine Clear MISYS Glucose Urine Negative NEG mg/dL MISYS Bilirubin Urine Negative NEG MISYS Ketones Urine Negative NEG mg/dL MISYS Specific [place] 1.027 1.001 - MISYS Urine 1.035 Blood Urine Small (A) NEG MISYS pH Urine 7.0 5.0 - 7.0 MISYS pH Protein Albumin Negative NEG mg/dL MISYS Urine Urobilinogen 1.0 0.2 - 1.0 MISYS Urine EU/dL Nitrite Urine Negative NEG MISYS Leukocyte Negative NEG MISYS Esterase Urine Specimen Anatomical Collection Method Collection Time Receive d Time (Source) Location / / Volume Laterality 12/05/2004 7:02 PM 5 5:30 JEWEL HOLE DRILLER AM JEWEL HOLE DRILLER Donna Mccormick MD LAB - URINE ORDERABLES Performing Organization Address City/[facility]/ZIP Code Phon e Number MISYS (ABNORMAL) Microscopic exam urine (12/05/2004 7:02 PM JEWEL HOLE DRILLER) [facility] Method Time Signature WBC Urine 0-2 0 - 2 /HPF MISYS RBC Urine 0-2 0 - 2 /HPF MISYS Mucous Urine Present (A) NEG /LPF MISYS Specimen Anatomical Collection Method Collection Time Receive d Time (Source) Location / / Volume Laterality 12/05/2004 7:02 PM 5 7:52 JEWEL HOLE DRILLER PM JEWEL HOLE DRILLER Donna Mccormick MD LAB - URINE ORDERABLES Performing Organization Address City/[facility] Phon e Number MISYS documented in this encounter Visit Diagnoses Not on filedocumented in this encounter Care Teams Mining Plant Operator Relationship Specialty Start Date End Date Jazmin Quiros MD PCP - General 12/01/05 07/25/10 documented as of this encounter
--- OUTSIDE RECORDS SUMMARY | 2022-08-31 22:29 | XMS_ITS | Encounter Summary ---
:1990 Author Organization [facility] Address [address] [place] [address] Care Team Providers Name Role Phone Unavailable Primary Care Provider Unavailable Encounter Details Date Type Department Care Team Description 05/26/2005 Abstract [facility] Patricio Gordon Social History Tobacco Use Types Packs/Day Years Used Date Smoking Tobacco: Never Assessed Sex Assigned at Date Recorded Not on file documented as of this encounter Plan of Treatment Not on filedocumented as of this encounter Visit Diagnoses Not on filedocumented in this encounter
--- OUTSIDE RECORDS SUMMARY | 2022-08-31 22:29 | XMS_ITS | Encounter Summary ---
:1990 Author Organization [place] Address [facility] [place] [address] Care Team Providers Name Role Phone Jazmin Quiros MD Primary Care Provider [phone] Reason for Referral Specialty Diagnoses / Procedures Referred By Contact Refer red [place] [address] Referral ID Status Reason Start Date Expiration Date Visits Requ ested Visits Authorized ECTIONS PROFESSIONAL Encounter Details Date Type Department Care Team Description 02/19/2005 Orders Only [facility] Dar Pearl MD DIAGNOSIS FOR ++++ CLINIC RETIRED [place] ONLY ++++ [place] [address] (Primary Dx) Social History Tobacco Use Types Packs/Day Years Used Date Smoking Tobacco: Never Assessed Sex Assigned at Date Recorded Not on file documented as of this encounter Plan of Treatment Not on filedocumented as of this encounter Procedures Procedure Name Priority Date/Time Associated Diagnosis Comme nts ZZ FL CONSULT ORTHOPEDICS Routine 02/19/2005 Diagnosis For + +++ Scanning Only ++++ documented in this encounter Results FL CONSULT ORTHOPEDICS (02/19/2005) Narrative This result has an attachment that is no t available. Provider Abstract REFERRAL documented in this encounter Visit Diagnoses Diagnosis DIAGNOSIS FOR ++++ SCANNING ONLY ++++ - Primary documented in this encounter Care Teams Dietitian Helper Relationship Specialty Start Date End Date Jazmin Quiros MD PCP - General 12/01/05 07/25/10 documented as of this encounter
--- OUTSIDE RECORDS SUMMARY | 2022-08-31 22:30 | XMS_ITS | Clinical Summary ---
:1990 Author Organization [email or web address] [facility] [place] [address] Care Team Providers Name Role Phone Holland Thomas MD Primary Care Provider [phone] Allergies Active Allergy Reactions Severity Noted Date Comments Morphine Vomiting 06/18/2018 severe nerve p ain [place] 01/29/2008 Medications Medication Sig Dispensed Refills Start Date End Date Status venlafaxine (EFFEXOR XR) Take 75 mg by 0 Active 75 mg cp24 mouth once daily Extended-Release capsule with a meal. methylPREDNISolone Take by mouth as 21 Tablet 0 09/12/2021 Active (MEDROL DOSEPAK) 4 mg instructed per tabletIndications: packaging. Bilateral sciatica cyclobenzaprine Take 1 Tablet 15 Tablet 0 09/12/2021 Active (FLEXERIL) 10 mg (10 mg) by mouth tabletIndications: 3 times daily if Bilateral sciatica needed for Muscle Spasm. SUMAtriptan (Imitrex) 50 Take 1 Tablet 30 Tablet 0 07/12/2022 Active mg tabletIndications: (50 mg) by mouth Other migraine without 2 times daily if status migrainosus, needed for intractable Migraine. Give at minimum 2hrs apart. Max Dose: 200mg per 24hrs. Active Problems Problem Noted Date Alcoholic intoxication without complication 06/18/2018 Surveillance for Depo-Provera contraception 09/04/2009 Pelvic pain 09/04/2009 Encounters Date Type Specialty Care Team Description 07/12/2022 Emergency Silvio Knight MD Tonic clon ic convulsion (HC) (Primary Dx); Other migraine without status migrainosus, intractable 07/12/2022 Travel from Last 3 Months Family History Medical History Relation Name Comments Alcohol/Drug Father ETOH/Drugs Hypertension Father Other Father Multi Anyurism @ 45yrs Stroke Father Heart Disease Maternal Grandfather Other Maternal Grandfather Lung Cancer Good Health Mother Diabetes Paternal Grandmother Good Health Sister Relation Name Status Comments Father Maternal Grandfather Alive Maternal Grandmother Alive Mother Alive Paternal Grandfather Alive Paternal Grandmother Sister Alive Social History Tobacco Use Types Packs/Day Years Used Date Current Every Day Smoker Cigarettes 0.25 Smokeless Tobacco: Never Used Alcohol Use Standard Drinks/Week Comments No 0 (1 standard drink = 0.6 oz pure alcoho l) Sex Assigned at Date Recorded Not on file Obstetrics History Last Filed Vital Signs Vital Sign Reading Time Taken Comments Blood Pressure 101/73 07/12/2022 10:30 AM CDT Pulse 71 07/12/2022 10:40 AM CDT Temperature 36.6 ??C (97.8 ??F) 07/12/2022 8:17 AM CDT Respiratory Rate 16 07/12/2022 8:13 AM CDT Oxygen Saturation 98% 07/12/2022 10:40 AM CDT Inhaled Oxygen Concentration - - Weight 64.9 kg (143 lb) 07/12/2022 8:17 AM CDT Height 170.2 cm (5' 7) 07/12/2022 8:17 AM CDT Body Mass Index 22.4 07/12/2022 8:17 AM CDT Plan of Treatment Health Maintenance Due Date Last Done Comments Pneumococcal series for age 19-64 (1 - 1994 PCV) Tdap 1999 Depression screening for age 12+ 2000 BMI (ht and wt on same day) for age 18+ 2006 Hepatitis C screening for age 18-79 2006 Tetanus booster 2008 Pap test for age 21-65 01/28/2011 01/29/2008 COVID-19 vaccine series (3 - Booster for 09/03/2021 021, 03/13/2021 Pfizer series) Influenza for age 9-49 2022 Procedures Procedure Name Priority Date/Time Associated Diagnosis Comme nts DRUG ABUSE SCREEN STAT 07/12/2022 9:35 AM Resu lts for this RAPID URINE INHOUSE CDT procedur e are in the results section. GLUCOSE METER Routine 07/12/2022 9:26 AM Results for this CDT procedure are i n the results section. CT HEAD BRAIN WO STAT 07/12/2022 9:24 AM Resul ts for this CDT procedure are i n the results section. EKG 12 LEAD STAT 07/12/2022 8:31 AM Results f or this CDT procedure are i n the results section. HEPATIC FUNCTION STAT 07/12/2022 8:23 AM Resul ts for this PANEL CDT procedure are i n the results section. ETHANOL SERUM OR STAT 07/12/2022 8:23 AM Resul ts for this PLASMA CDT procedure are i n the results section. MAGNESIUM STAT 07/12/2022 8:23 AM Results f or this CDT procedure are i n the results section. BASIC METABOLIC STAT 07/12/2022 8:23 AM Result s for this PANEL CDT procedure are i n the results section. CBC W PLT NO DIFF STAT 07/12/2022 8:23 AM Resu lts for this CDT procedure are i n the results section. CK TOTAL STAT 07/12/2022 8:23 AM Results f or this CDT procedure are i n the results section. from Last 3 Months Results (ABNORMAL) DRUG ABUSE SCREEN RAPID URINE INHOUSE(FINE) (07/12/2022 9:35 AM CDT) [facility] Method Time Signature THC Presumptive Not 07/12/2022 [place] METABOLITES,QU Positive-Uncon Detected 9:57 AM T MEDICAL AL firmed Result CENTER (A) LABORATORY PCP,QUAL Not Detected Not 07/12/2022 [place] Detected 9:57 AM [facility] COCAINE,QUAL Not Detected Not 07/12/2022 [place] Detected 9:57 AM T [facility] METHAMPHETAMIN Not Detected Not 07/12/2022 [place] E, QUALITATIVE Detected 9:57 AM [facility] OPIATES,QUAL Not Detected Not 07/12/2022 [place] Detected 9:57 AM [facility] AMPHETAMINE, Not Detected Not 07/12/2022 [place] QUALITATIVE Detected 9:57 AM [facility] BENZODIAZEPINE Not Detected Not 07/12/2022 [place] S,QUAL Detected 9:57 AM [facility] TRICYCLICS,JUAN A Not Detected Not 07/12/2022 [place] L Detected 9:57 AM [facility] METHADONE, Not Detected Not 07/12/2022 [place] QUALITATIVE Detected 9:57 AM [facility] BARBITURATES,Q Not Detected Not 07/12/2022 [place] UAL Detected 9:57 AM [facility] OXYCODONE, Not Detected Not 07/12/2022 [place] QUALITATIVE Detected 9:57 AM [facility] BUPRENORPHINE, Not Detected Not 07/12/2022 [place] QUALITATIVE Detected 9:57 AM [facility] PROPOXYPHENE,Q Not Detected Not 07/12/2022 [place] UAL Detected 9:57 AM [facility] Specimen Anatomical Collection Method Collection Time Receive d Time (Source) Location / / Volume Laterality Urine URINE SPECIMEN / Non-Blood / 07/12/2022 9:35 AM 07/12 9:38 Unknown Unknown CDT AM CDT Narrative [facility] - 9:57 AM CDT Please Note: ?? This is a screening test only, all resul ts are Unconfirmed and should be used for medical purposes only . ??Unconfirmed results must not be used for non-medical purpose s (e.g., employment testing, legal testing). ??Suggest marlene te specific confirmation for all presumptive positive results. ?? Specimens will be held for 24 hours if additional testing is needed . ?? The following threshold concentrations a re used for this analysis: ? Drug ? Screening Threshold ? Buprenorphine ? 10 ng/mL PCP ? 25 ng/mL ?? THC Metabolites ? 50 ng/mL *Opiates ? 100 ng/mL Oxycodone ?100 ng/mL Cocaine ?150 ng/mL Benzodiazepines ?150 ng/mL ?? Methadone ?200 ng/mL ?? Barbiturates ? 200 ng/mL Propoxyphene ? 300 ng/mL Tricyclic Antidepressants ? 300 ng/mL ?? Amphetamines ? 500 ng/mL ?? Methamphetamines ? 500 ng/mL ?*Includes related compounds: ? Codeine ?50 ng/mL ? Heroin ?100 ng/mL ? Morphine ?100 ng/mL ? Hydrocodone ? 400 ng/mL ? Hydromorphone ? 800 ng/mL ?Venlafaxine (Effexor) is a known cr oss reactant in the PCP ?assay. ??If clinically indicated, order PCP confirmation. Silvio Knight MD URINE Performing Organization Address City/[facility]/ZIP Code Phon e Number [facility] [address] [place] [address] GLUCOSE METER (07/12/2022 9:26 AM CDT) P athologist Signature GLUCOSE METER 77 65 - 100 07/12/2022 [place] mg/dL 9:27 AM CDT [facility] Specimen Anatomical Collection Method Collection Time Receive d Time (Source) Location / / Volume Laterality Blood BLOOD SPECIMEN / 07/12/2022 9:26 AM 07/12 9:27 Unknown CDT AM CDT Silvio Knight MD CHEMISTRY Performing Organization Address City/State/ZIP Code Phon e Number [facility] [address] [place] [address] CT HEAD BRAIN WO (07/12/2022 9:24 AM CDT) Anatomical Region Laterality Modality HEAD, BRAIN Computed Tomography Specimen (Source) Anatomical Collection Method Collection Time Re ceived Time Location / / Volume Laterality 07/12/2022 10:06 AM CDT Narrative 07/12/2022 10:06 AM CDT For Patients: ??As a result of the Cures Act, medical imaging exams and procedure report s are released immediately into your community hospital medical record. ??You may view this report before your referring provider. ??If you have questions, please contact your health care provider. Indication: headache, breakthrough seizures Technique: CT of the head without contrast. Coronal and sagittal reformats. Bone and soft tissue windows. Comparison: No prior studies available for compariso n at this institution. Findings: No acute intracranial hemorrhage or extr a-axial collection. No evidence of acute cortical infarction. No mass effect or midline shift. Normal cerebral volume. The ventricles are normal in size, shape an d contour. There is normal lu and whit e matter differentiation. The orbital contents are normal. No calv arial fractures. No lytic or sclerotic osseous lesions within the calvarium or skull base. Scalp and other imaged soft tissue structures are normal. ??Mastoid air cells are clear. Paranasal sinuses are well aerated. Leftward deviation of the nasal septum. Mild polypoid mucosal thickening in the right maxillary sinus Impression: No acute intracranial abnormality. Please note that all CT scans at this [facility] use dose modulation, iterative reconstruction, and/or weight-based dosing when appropriate to reduce radiation dose to as low as reasonably achievable. Dictated by Sonido Love MD @ 07/12/2022 10:06:50 AM (Electronically Signed) Procedure Note Sonido Love MD - 07/12/2022Fo rmatting of this note might be different from the original. For Patients: As a result of the ntury Cures Act, medical imaging exams and procedure reports are released immediately into your electronic medical record. You may view this report before your referring provider. If you have questions, please contact [facility] care provider. Indication: headache, breakthrough seizures Technique: CT of the head without contrast. Coronal and sagittal reformats. Bone and soft tissue windows. Comparison: No prior studies available for compariso n at this institution. Findings: No acute intracranial hemorrhage or extr a-axial collection. No evidence of acute cortical infarction. No mass effect or midline shift. Normal cerebral volume. The ventricles are normal in size, shape and contour. There is normal lu and white matter di fferentiation. The orbital contents are normal. No calv arial fractures. No lytic or sclerotic osseous lesions within the calvarium or skull base. Scalp and other imaged soft tissue structures are normal. Mastoid air cells are clear. Paranasal sinuses are well aerate d. Leftward deviation of the nasal septum. Mild polypoid mucosal thickening in the right maxillary sinus Impression: No acute intracranial abnormality. Please note that all CT scans at this [facility] use dose modulation, iterative reconstruction, and/or weight-based dosing when appropriate to reduce radiation dose to as low as reasonably achievable. Dictated by Sonido Love MD @ 07/12/2022 10:06:50 AM (Electronically Signed) Silvio Knight MD CT EKG 12 LEAD (07/12/2022 8:31 AM CDT) [facility] Method Time Signature Interpretation Normal sinus rhythm BEYON D NOW Normal ECG No previous ECGs available Ventricular Rate 67 BPM BEYOND NOW Atrial Rate 67 BPM BEYOND NOW P-R Interval 158 ms BEYOND NOW QRS Duration 86 ms BEYOND NOW QT 412 ms BEYOND NOW QTc 435 ms BEYOND NOW P [place] 51 degrees BEYOND NOW R [place] 50 degrees BEYOND NOW T [place] 22 degrees BEYOND NOW Specimen Anatomical Collection Method Collection Time Receive d Time (Source) Location / / Volume Laterality 07/12/2022 8:31 AM 9:03 CDT AM CDT Silvio Knight MD EKG ORD Performing Organization Address City/State/ZIP Code Phon e Number BEYOND NOW [place], [place] (ABNORMAL) CBC W PLT NO DIFF (07/12/2022 8:23 AM CDT) [facility] Method Time Signature WHITE BLOOD 3.7 (L) 4.5 - 11.0 07/12/2022 [place] COUNT thou/cu mm 8:32 AM [facility] RED BLOOD COUNT 3.88 (L) 4.00 - 07/12/2022 [place] 5.20 8:32 AM [facility] mil/cu mm LABORATORY HEMOGLOBIN 12.1 12.0 - 07/12/2022 [place] 16.0 g/dL 8:32 AM [facility] HEMATOCRIT 36.0 33.0 - 07/12/2022 [place] 51.0 % 8:32 AM [facility] MCV 93 80 - 100 07/12/2022 [place] fL 8:32 AM [facility] MCH 31.2 26.0 - 07/12/2022 [place] 34.0 pg 8:32 AM [facility] MCHC 33.6 32.0 - 07/12/2022 [place] 36.0 g/dL 8:32 AM [facility] RDW 13.1 11.5 - 07/12/2022 [place] 15.5 % 8:32 AM [facility] PLATELET COUNT 234 140 - 440 07/12/2022 [place] thou/cu mm 8:32 AM [facility] MPV 9.0 6.5 - 11.0 07/12/2022 [place] fL 8:32 AM [facility] Specimen Anatomical Collection Method Collection Time Receive d Time (Source) Location / / Volume Laterality Blood BLOOD SPECIMEN / IV Start / Unknown 07/12/2022 8:23 AM 07/12/2022 8:28 Unknown CDT AM CDT Silvio Knight MD HEMATOLOGY Performing Organization Address City/State/ZIP Code Phon e Number [facility] [address] [place] [address] (ABNORMAL) ETHANOL SERUM OR PLASMA (07/12/2022 8:23 AM CDT) athologist [facility] ETHANOL 0.072 (H) <0.010 07/12/2022 [place] g/dL 8:57 AM T [facility] Specimen Anatomical Collection Method Collection Time Receive d Time (Source) Location / / Volume Laterality Blood BLOOD SPECIMEN / IV Start / Unknown 07/12/2022 8:23 AM 07/12/2022 8:28 Unknown CDT AM CDT Silvio Knight MD CHEMISTRY Performing Organization Address City/State/ZIP Code Phon e Number [facility] [address] [place] [address] MAGNESIUM (07/12/2022 8:23 AM CDT) athologist [facility] MAGNESIUM 1.8 1.6 - 2.6 07/12/2022 [place] mg/dL 9:02 AM CDT [facility] Specimen Anatomical Collection Method Collection Time Receive d Time (Source) Location / / Volume Laterality Blood BLOOD SPECIMEN / IV Start / Unknown 07/12/2022 8:23 AM 07/12/2022 8:28 Unknown CDT AM CDT Silvio Knight MD CHEMISTRY Performing Organization Address City/State/ZIP Code Phon e Number [facility] [address] [place] [address] CK TOTAL (07/12/2022 8:23 AM CDT) athologist [facility] CK,TOTAL 56 29 - 168 07/12/2022 [place] IU/L 9:03 AM T [facility] Specimen Anatomical Collection Method Collection Time Receive d Time (Source) Location / / Volume Laterality Blood BLOOD SPECIMEN / IV Start / Unknown 07/12/2022 8:23 AM 07/12/2022 8:28 Unknown CDT AM CDT Silvio Knight MD CHEMISTRY Performing Organization Address City/[facility]/ZIP Code Phon e [facility] [place] LABORATORY [address] [place] [address] (ABNORMAL) HEPATIC FUNCTION PANEL (07/12/2022 8:23 AM CDT) Patholo gist Method Time Signature ALBUMIN 3.9 3.5 - 5.2 07/12/2022 [place] g/dL 9:02 AM [facility] PROTEIN,TOTAL 7.7 6.0 - 8.0 07/12/2022 [place] g/dL 9:02 AM [facility] GLOBULIN 3.8 (H) 2.0 - 3.7 07/12/2022 [place] g/dL 9:02 AM [facility] A/G RATIO 1.0 1.0 - 2.0 07/12/2022 [place] 9:02 AM [facility] BILIRUBIN,TOTAL 0.8 0.2 - 1.2 07/12/2022 [place] mg/dL 9:02 AM [facility] BILIRUBIN,DIRECT 0.4 0.1 - 0.5 07/12/2022 [place] mg/dL 9:02 AM [facility] BILIRUBIN,INDIRE 0.4 0.2 - 0.8 07/12/[address] [facility] mg/dL 9:02 AM [facility] ALK PHOSPHATASE 35 (L) 50 - 136 07/12/2022 [place] IU/L 9:02 AM [facility] ALT (SGPT) 34 8 - 45 07/12/2022 [place] IU/L 9:02 AM [facility] AST (SGOT) 30 2 - 40 07/12/2022 [place] IU/L 9:02 AM [facility] Specimen Anatomical Collection Method Collection Time Receive d Time (Source) Location / / Volume Laterality Blood BLOOD SPECIMEN / IV Start / Unknown 07/12/2022 8:23 AM 07/12/2022 8:28 Unknown CDT AM CDT Silvio Knight MD CHEMISTRY Performing Organization Address City/State/ZIP Code Phon e Number [facility] [address] [place] [address] BASIC METABOLIC PANEL (07/12/2022 8:23 AM CDT) P athologist Signature SODIUM 140 135 - 145 07/12/2022 [place] mmol/L 9:00 AM [facility] POTASSIUM 3.8 3.5 - 5.0 07/12/2022 [place] mmol/L 9:00 AM [facility] CHLORIDE 109 98 - 110 07/12/2022 [place] mmol/L 9:00 AM [facility] CO2,TOTAL 21 21 - 31 07/12/2022 [place] mmol/L 9:00 AM [facility] ANION GAP 10 5 - 18 07/12/2022 [place] 9:00 AM [facility] GLUCOSE 83 65 - 100 07/12/2022 [place] mg/dL 9:00 AM [facility] CALCIUM 8.8 8.5 - 10.5 07/12/2022 [place] mg/dL 9:00 AM [facility] BUN 10 8 - 25 07/12/2022 [place] mg/dL 9:00 AM [facility] CREATININE 0.75 0.57 - 07/12/2022 [place] 1.11 mg/dL 9:00 AM [facility] BUN/CREAT RATIO 13 10 - 20 [facility]/2022 [facility] 9:00 AM [facility] eGFR >90 >90 07/12/2022 [facility] mL/min/1.7 9:00 AM [facility] 3m2 LABORATORY Comment: As of 2022, eGFR is calcu lated by the CKD-EPI creatinine equation without race adjustment. eGFR can be inf luenced by muscle mass, exercise, and diet. The reported eGFR is an estimation only and is only applicable if the renal function is stable. Specimen Anatomical Collection Method Collection Time Receive d Time (Source) Location / / Volume Laterality Blood BLOOD SPECIMEN / IV Start / Unknown 07/12/2022 8:23 AM 07/12/2022 8:28 Unknown [facility] MD CHEMISTRY Performing Organization Address City/State/ZIP Code Phon e Number [facility] [address] [place] [address] from Last 3 Months Insurance Payer Benefit Plan / Subscriber ID Effective Dates Phone Addre ss Type Group [place]ICAID [place] MEDICA[place] [id number] 2021-Present [address] [address] Dept [place] [address] Advance Directives Latest Code Status on File Code Status Date Activated Date Inactivated Comments Full Code 06/18/2018 10:25 AM 06/19/2018 12:38 AM Care Teams Charge Lpn Relationship Specialty Start Date End Date Holland Thomas MD PCP - General 09/30/21 [address] [place], [place] [id number]
--- NOTE | 2022-08-31 23:44 | ED.NURSE ---
patient left AMA from lobby, Registration had refusal of services form signed. updated.
[2022-09-01 02:48] LABS: Ur HCG Qualitative* Negative (Negative)
== END 2022-08-31 23:44 | disposition left against medical advice (07) ==
PROVIDERS: Family Medicine
DX: R82.90 Unspecified abnormal findings in urine (principal); Z53.21 Procedure and treatment not carried out due to patient leaving prior to being seen by health care provider
CPT/HCPCS: 81001; 81025